=== PATIENT | male | born 1945 | race Caucasian/White ===

== ENCOUNTER → 2016-03-10 | Outpatient (CLI) | payer OTHER, MEDICARE, BC ==
[2016-03-10 07:23] LABS: Blood Urea Nitrogen 16 mg/dL (9-20); Non-African American GFR(MDRD) >60 (>60 ml/min/1.73 sqM)
--- NOTE | 2016-03-10 09:41 | CT ---
EXAMINATION TYPE: CT abdomen pelvis w con DATE OF EXAM: 03/10/2016 8:43 AM COMPARISON: Prior CT second of April 2015 HISTORY: mid abdomen pain CT DLP: 980.6 mGycm Automated exposure control for dose reduction was used. TECHNIQUE: Helical acquisition of images was performed from the lung bases through the pelvis. CONTRAST: Performed with Oral Contrast and with IV Contrast, patient injected with 100 mL of Omnipaque 300. FINDINGS: LUNG BASES: Calcified right hilar nodes are again seen, there is calcification at the level of the ao rtic root and the heart is enlarged, there are coronary artery calcifications. There is a small hiata l hernia. Interstitial changes are present at the lung bases, there is some improved aeration as comp ared to prior exam. LIVER/GB: Patient is post cholecystectomy. Liver shows low attenuation as on prior exam. PANCREAS: No significant abnormality is seen. SPLEEN: No significant abnormality is seen. ADRENALS: No significant abnormality is seen. KIDNEYS: No significant abnormality is seen. RETROPERITONEAL ADENOPATHY: None visualized REPRODUCTIVE ORGANS: Prostate shows some associated calcification URINARY BLADDER: No significant abnormality is seen. PELVIC ADENOPATHY: None visualized. OSSEOUS STRUCTURES: Degenerative disc changes are present within the visualized spine, there are ass ociated facet arthropathy changes at the lower lumbar spine, irregularity of the right ilium shows a stable appearance. BOWEL: Scattered diverticular changes noted, there is no evident bowel obstruction, appendix is not seen. OTHER: No ascites. IMPRESSION: DIVERTICULOSIS. POSTOP CHANGES. SMALL HIATAL HERNIA. CARDIOMEGALY, CORONARY ARTERY DISEASE, NO SIGNIF ICANT INTERVAL CHANGE COMPARED TO PRIOR EXAM.
== END | disposition home or self-care (01) ==
LOC: RADCTMAIN 06:34
PROVIDERS: ATTEND Surgery
DX: K44.9 Diaphragmatic hernia without obstruction or gangrene (principal); K57.90 Diverticulosis of intestine, part unspecified, without perforation or abscess without bleeding; R10.9 Unspecified abdominal pain; Z90.49 Acquired absence of other specified parts of digestive tract
CPT/HCPCS: 82565; 84520; 74177; 36415; Q9967

== ENCOUNTER 2016-04-13 19:55 | Observation (INO) | payer OTHER, MEDICARE, BC ==
[2016-04-13] MEDS ORDERED: ACETAMINOPHEN TAB 325 MG TAB PO STA (21:09)
[2016-04-13 21:37] LABS: Aty Lym Flag Marked; CH 31.4; CHCM 34.7; HCT 39.2 % (39.0-53.0); HDW 2.97; HGB 13.3 gm/dL (13.0-17.5); MCH 30.9 pg (25.0-35.0); Mean Platelet Volume 7.1; RDW 13.5 % (11.5-15.5); WBC (Perox) 32.22
[2016-04-13 21:39] LABS: Appearance,Urine Clear (Clear); Bilirubin,Urine Negative (Negative); Glucose,Urine (UA) Negative (Negative); Ketones,Urine Negative (Negative); Leukocyte Esterase,Urine Negative (Negative); Nitrite,Urine Negative (Negative); Protein,Urine Negative (Negative); UA Billing (MACRO vs. MICRO) CHEM; Urobilinogen,Urine <2.0 mg/dL (<2.0)
[2016-04-13 21:43] LABS: WBC 32.4 k/uL (3.8-10.6)
--- NOTE | 2016-04-13 21:44 | XR ---
EXAMINATION TYPE: XR chest 1V portable DATE OF EXAM: 04/13/2016 9:38 PM COMPARISON: 05/07/2015 HISTORY: Fever TECHNIQUE: Single frontal view of the chest is obtained. FINDINGS: There is no heart failure. Heart is enlarged. There is slight blunting of left costophreni c angle. There is no definite pulmonary infiltrate. There is upper thoracic spine fusion surgery note d. There are no hilar masses. IMPRESSION: Left basilar pleural reaction or fluid. There is significant clearing of most of the inf iltrate in the left lung compared to last exam.
[2016-04-13 21:46] LABS: ALT 36 U/L (21-72); AST 26 U/L (17-59); Alkaline Phosphatase 63 U/L (38-126); Anion Gap 12 mmol/L; Blood Urea Nitrogen 19 mg/dL (9-20); Calcium 9.2 mg/dL (8.4-10.2); Carbon Dioxide 23 mmol/L (22-30); Chloride 100 mmol/L (98-107); Glucose 151 mg/dL (74-99); Non-African American GFR(MDRD) >60 (>60 ml/min/1.73 sqM); Potassium 4.3 mmol/L (3.5-5.1); Sodium 135 mmol/L (137-145); Total Bilirubin 0.7 mg/dL (0.2-1.3); Total Protein 6.3 g/dL (6.3-8.2)
--- NOTE | 2016-04-13 21:46 | ED ---
Fever HPI - General Chief Complaint: Fever Stated Complaint: Weakness/Vomiting Time Seen by Provider: 04/13/16 21:09 Source: patient Mode of arrival: wheelchair Limitations: no limitations - History of Present Illness Initial Comments: This patient is 70-year-old man who presents with approximately one week of not feeling well. The patient has been having fever and chills, feeling some generalized weakness and fatigue. Patient states that he usually feels alright when he wakes up for couple of hours and then by the afternoon feels rundown and he is not able to do much. MD Complaint: fever Onset/Timin -: week(s) Temperature Source: subjective Associated Symptoms: chills - Related Data Home Medications Medication Instructions Recorded Confirmed Acyclovir [Zovirax] 400 mg PO BID 04/13/16 04/13/16 Aspirin [Adult Low Dose Aspirin EC] 81 mg PO DAILY 04/13/16 04/13/16 Cephalexin [Keflex] 500 mg PO BID 04/13/16 04/13/16 Clopidogrel [Plavix] 75 mg PO DAILY 04/13/16 04/13/16 Furosemide [Lasix] 20 mg PO BID 04/13/16 04/13/16 Insulin Glargine [Lantus] 35 unit SQ HS 04/13/16 04/13/16 Ipratropium-Albuterol Nebulize 3 ml INHALATION RT-TID PRN 04/13/16 04/13/16 [Duoneb 0.5 mg-3 mg/3 ml Soln] Lactulose 20 gm PO BID PRN 04/13/16 04/13/16 Metoprolol Tartrate [Lopressor] 25 mg PO BID 04/13/16 04/13/16 Multivitamins, Thera [Multivitamin] 1 tab PO DAILY 04/13/16 04/13/16 Potassium Chloride ER [K-Dur 10] 10 meq PO DAILY 04/13/16 04/13/16 Saw [place] 500 mg PO DAILY 04/13/16 04/13/16 Allergies Allergy/AdvReac Type Severity Reaction Status Date / Time No Known Allergies Allergy Verified 04/13/16 21:46 Review of Systems ROS Statement: Those systems with pertinent positive or pertinent negative responses have been documented in the HPI. ROS Other: All systems not noted in ROS Statement are negative. Constitutional: Reports: fever, chills, weakness Respiratory: Denies: cough, dyspnea Cardiovascular: Denies: chest pain, palpitations, edema, syncope Gastrointestinal: Denies: abdominal pain, nausea, vomiting, diarrhea, constipation Genitourinary: Denies: dysuria, hematuria Musculoskeletal: Denies: back pain Skin: Denies: rash Neurological: Reports: weakness (Generalized). Denies: headache, numbness Past Medical History Past Medical History: Hypertension, Pneumonia Additional Past Medical History / Comment(s): lymphoma 4 times. Has a history of histoplasmosis which required the lung resection at [facility] History of Any Multi-Drug Resistant Organisms: None Reported Past Surgical History: Cholecystectomy, Hernia Repair Additional Past Surgical History / Comment(s): stem cell transplant Past Anesthesia/Blood Transfusion Reactions: No Reported Reaction Past Psychological History: No Psychological Hx Reported Additional Psychological History / Comment(s): . 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 No international travel. No animal exposures Smoking Status: Never smoker Past Alcohol Use History: None Reported Past Drug Use History: None Reported - Past Family History Mother Family Medical History: Thyroid Disorder General Exam Limitations: no limitations General appearance: alert, in no apparent distress Head exam: Present: atraumatic, normocephalic Eye exam: Present: normal appearance. Absent: scleral icterus, conjunctival injection ENT exam: Present: mucous membranes dry Neck exam: Present: normal inspection, full ROM. Absent: meningismus Respiratory exam: Present: rales (Bilateral bases). Absent: respiratory distress, wheezes, rhonchi, stridor Cardiovascular Exam: Present: regular rate, normal rhythm, systolic murmur ( Grade 1/6 early systolic murmur). Absent: diastolic murmur, rubs, gallop GI/Abdominal exam: Present: soft. Absent: distended, tenderness, guarding, rebound, mass Extremities exam: Present: normal inspection, normal capillary refill. Absent: pedal edema, calf tenderness Back exam: Present: normal inspection. Absent: CVA tenderness (R), CVA tenderness (L) Neurological exam: Present: alert Skin exam: Present: warm, dry, intact, normal color. Absent: rash Course Vital Signs 04/13/16 04/13/16 04/13/16 20:23 21:27 22:52 Temperature 101.6 F H 101 F H 100.5 F H Pulse Rate 98 88 85 Respiratory 20 18 18 Rate Blood Pressure 112/57 114/57 98/54 O2 Sat by Pulse 92 L 98 95 Oximetry Medical Decision Making - Medical Decision Making Patient 70-year-old man who presents for fever and generalized weakness and fatigue. He does have significant leukocytosis, but the workup does not reveal definite source. I do believe the patient probably has an early pneumonia that has not become apparent yet on the chest x-ray. The patient's lung exam does have crackles in the lower lung field. Given the significant leukocytosis will admit the patient overnight for the culture results and to started antibiotic treatment. - Lab Data Result diagrams: 04/13/16 21:15 04/13/16 21:15 Lab Results 04/13/16 04/13/16 04/13/16 Range/Units 21:15 21:15 21:15 WBC 32.4 H* (3.8-10.6) k/uL RBC 4.30 (4.30-5.90) m/uL Hgb 13.3 (13.0-17.5) gm/dL Hct 39.2 (39.0-53.0) % MCV 91.0 (80.0-100.0) fL MCH 30.9 (25.0-35.0) pg MCHC 34.0 (31.0-37.0) g/dL RDW 13.5 (11.5-15.5) % Plt Count 443 (150-450) k/uL Neutrophils % (Manual) 94.5 % Lymphocytes % (Manual) 4.0 % Monocytes % (Manual) 1.5 % Neutrophils # (Manual) 30.6 H (1.3-7.7) k/uL Lymphocytes # (Manual) 1.3 (1.0-4.8) k/uL Monocytes # (Manual) 0.5 (0-1.0) k/uL Nucleated RBCs 0 (0-0) /100 WBC Manual Slide Review Performed RBC Morphology Normal Sodium 135 L (137-145) mmol/L Potassium 4.3 (3.5-5.1) mmol/L Chloride 100 (98-107) mmol/L Carbon Dioxide 23 (22-30) mmol/L Anion Gap 12 mmol/L BUN 19 (9-20) mg/dL Creatinine 0.95 (0.66-1.25) mg/dL Est GFR (MDRD) Af Amer >60 (>60 ml/min/1.73 sqM) Est GFR (MDRD) Non-Af >60 (>60 ml/min/1.73 sqM) Glucose 151 H (74-99) mg/dL Plasma Lactic Acid Ko (0.7-2.0) mmol/L Calcium 9.2 (8.4-10.2) mg/dL Total Bilirubin 0.7 (0.2-1.3) mg/dL AST 26 (17-59) U/L ALT 36 (21-72) U/L Alkaline Phosphatase 63 (38-126) U/L Total Protein 6.3 (6.3-8.2) g/dL Albumin 3.8 (3.5-5.0) g/dL Urine Color Urine Appearance (Clear) Urine pH (5.0-8.0) Ur Specific [place] (1.001-1.035) Urine Protein (Negative) Urine Glucose (UA) (Negative) Urine Ketones (Negative) Urine Blood (Negative) Urine Nitrate (Negative) Urine Bilirubin (Negative) Urine Urobilinogen (<2.0) mg/dL Ur Leukocyte Esterase (Negative) Influenza Type A RNA Not Detected (Not Detectd) Influenza Type B (PCR) Not Detected (Not Detectd) 04/13/16 04/13/16 Range/Units 21:15 21:15 WBC (3.8-10.6) k/uL RBC (4.30-5.90) m/uL Hgb (13.0-17.5) gm/dL Hct (39.0-53.0) % MCV (80.0-100.0) fL MCH (25.0-35.0) pg MCHC (31.0-37.0) g/dL RDW (11.5-15.5) % Plt Count (150-450) k/uL Neutrophils % (Manual) % Lymphocytes % (Manual) % Monocytes % (Manual) % Neutrophils # (Manual) (1.3-7.7) k/uL Lymphocytes # (Manual) (1.0-4.8) k/uL Monocytes # (Manual) (0-1.0) k/uL Nucleated RBCs (0-0) /100 WBC Manual Slide Review RBC Morphology Sodium (137-145) mmol/L Potassium (3.5-5.1) mmol/L Chloride (98-107) mmol/L Carbon Dioxide (22-30) mmol/L Anion Gap mmol/L BUN (9-20) mg/dL Creatinine (0.66-1.25) mg/dL Est GFR (MDRD) Af Amer (>60 ml/min/1.73 sqM) Est GFR (MDRD) Non-Af (>60 ml/min/1.73 sqM) Glucose (74-99) mg/dL Plasma Lactic Acid Ko 1.1 (0.7-2.0) mmol/L Calcium (8.4-10.2) mg/dL Total Bilirubin (0.2-1.3) mg/dL AST (17-59) U/L ALT (21-72) U/L Alkaline Phosphatase (38-126) U/L Total Protein (6.3-8.2) g/dL Albumin (3.5-5.0) g/dL Urine Color Yellow Urine Appearance Clear (Clear) Urine pH 6.0 (5.0-8.0) Ur Specific [place] 1.010 (1.001-1.035) Urine Protein Negative (Negative) Urine Glucose (UA) Negative (Negative) Urine Ketones Negative (Negative) Urine Blood Negative (Negative) Urine Nitrate Negative (Negative) Urine Bilirubin Negative (Negative) Urine Urobilinogen <2.0 (<2.0) mg/dL Ur Leukocyte Esterase Negative (Negative) Influenza Type A RNA (Not Detectd) Influenza Type B (PCR) (Not Detectd) - EKG Data -: EKG Interpreted by Vt EKG shows normal: sinus rhythm, axis (Normal), intervals (Normal), QRS complexes (There is an incomplete right bundle branch block as well as a left posterior fascicular block), ST-T waves Rate: normal (Rate 91 bpm) Disposition Clinical Impression: Fever, Pneumonia, Leukocytosis Disposition: ADMITTED IP TO THIS HOSP Condition: Fair
[2016-04-13 21:59] LABS: Add Differential Manual Differential
[2016-04-13 22:01] LABS: Nucleated Red Blood Cells 0 /100 WBC (0-0); Total Cells Counted 200
[2016-04-13 22:02] LABS: Manual Review Performed; RBC Morphology Normal
[2016-04-13] MEDS ORDERED: PNEUMONIA PROTOCOL UTILIZED 1 EACH MISC PO PRN (22:18)
[2016-04-13] MEDS ORDERED: LEVOFLOXACIN 750MG-D5W PMX 750 MG in DEXTROSE/WATER 1 150ML.BAG IVPB STA (22:18)
[2016-04-13] MEDS ORDERED: ALBUTEROL NEBULIZED 2.5 MG/3 ML INHALATION PRN (22:18)
[2016-04-13] MEDS ORDERED: LACTULOSE 20 GM/30 ML CUP PO PRN (22:19)
[2016-04-13] MEDS: SODIUM CHLORIDE 0.9% 1,000 ML IV SCH (22:57)
[2016-04-13] MEDS ORDERED: ACETAMINOPHEN TAB 325 MG TAB PO PRN (22:59)
[2016-04-14 00:16] VITALS: BMI 28.1
[2016-04-14 00:18] VITALS: RESP 16
[2016-04-14] MEDS: PIPERACILLIN-TAZOBACTAM 3.375 GM in DEXTROSE/WATER 1 50ML.BAG IVPB STA ×2 (00:33→02:07)
[2016-04-14 07:36] LABS: Glucose,Whole Blood 128 mg/dL (75-99)
[2016-04-14 08:01] LABS: Hemoglobin A1C 6.4 % (4.2-6.1)
[2016-04-14] MEDS: INSULIN LISPRO (humaLOG) 300 UNIT/3 ML VIAL SQ SCH ×4 (08:53→21:41)
[2016-04-14] MEDS: ASPIRIN 81 MG CHEW PO SCH (08:57)
[2016-04-14] MEDS: CLOPIDOGREL 75 MG TAB PO SCH (08:57)
[2016-04-14] MEDS: METOPROLOL TARTRATE 25 MG TAB PO SCH ×2 (08:58→20:57)
[2016-04-14] MEDS: MULTIVITAMINS, THERA 1 EACH TAB PO SCH (08:58)
[2016-04-14] MEDS: POTASSIUM CHLORIDE ER 10 MEQ TAB.ER.PRT PO SCH (08:58)
[2016-04-14] MEDS: SODIUM CHLORIDE 0.9% 1,000 ML IV SCH (08:59)
[2016-04-14] MEDS ORDERED: FUROSEMIDE 20 MG TAB PO SCH (09:00)
[2016-04-14] MEDS ORDERED: PIPERACILLIN-TAZOBACTAM 3.375 GM in DEXTROSE/WATER 1 50ML.BAG IVPB SCH (09:00)
[2016-04-14] MEDS ORDERED: cefTRIAXone 2,000 MG in SODIUM CHLORIDE 0.9% 100 ML IVPB SCH (11:30)
[2016-04-14 11:40] LABS: Glucose,Whole Blood 113 mg/dL (75-99)
[2016-04-14 12:24] LABS: INR 1.2 (<1.1)
[2016-04-14 12:25] LABS: Prothrombin Time 12.3 sec (9.0-12.0)
--- NOTE | 2016-04-14 12:31 | HP ---
DATE OF ADMISSION: Patient is 70-year-old gentleman who came in with complaints of cough with sputum production and fever, chills and generalized weakness, found to have left lower lobe infiltrate and patient is admitted for pneumonia and patient has history of lymphoma, which is in remission. Patient is feeling much better today compared to yesterday. Patient denied any abdominal pain at this time. Patient denied any dysuria. Patient is on broad-spectrum antibiotics including Zosyn and Augmentin. Patient's last admission is about a year ago. Because of that, I do not believe patient will need to be treated as health-care associated pneumonia. Patient will be started on treatment in the form of community-acquired pneumonia with ceftriaxone and azithromycin. Patient had staphylococcal pneumonia in the past and patient had influenza at the time. Postinfluenzal staphylococcal pneumonia is not uncommon. At this time, patient does not have any staphylococcal and patient although is on Keflex at home and acyclovir at home. REVIEW OF SYSTEMS: CONSTITUTIONAL: No fever, no malaise, no fatigue. HEENT: No recent visual problems or hearing problems. Denied any sore throat. CARDIOVASCULAR: No chest pain, orthopnea, PND, no palpitations, no syncope. PULMONARY: As described in HPI. GASTROINTESTINAL: No diarrhea, no nausea, no vomiting, no abdominal pain. Normoactive bowel sounds. NEUROLOGICAL: No headaches, no weakness, no numbness. HEMATOLOGICAL: Denies any bleeding or petechiae. GENITOURINARY: Denies any burning micturition, frequency, or urgency. MUSCULOSKELETAL/RHEUMATOLOGICAL: Denies any joint pain, swelling, or any muscle pain. ENDOCRINE: Denies any polyuria or polydipsia. The rest of the 14 point review of systems is negative. Home medications include acyclovir, aspirin, cephalexin, Plavix, Lasix, glargine, ipratropium albuterol, lactulose, metoprolol. multivitamin, potassium chloride, saw palmetto. ALLERGIES: No known drug allergies. PAST MEDICAL HISTORY: Hypertension, pneumonia and lymphoma in the past. Patient is in remission at this point of time, and cholecystectomy, hernia repair, stem-cell transplant 4 times. SOCIAL HISTORY: Denied any smoking, alcohol abuse or any drug abuse. FAMILY HISTORY: Mother had thyroid cancer. PHYSICAL EXAMINATION: VITAL SIGNS: Temperature 97.8, T-max is 101.6, pulse of 76, respiratory rate of 16, blood pressure is 103/57, saturating at 94% on room air. RESPIRATORY: Bibasilar crackles are appreciated. Patient does have bronchophony egophony in the left lower lung mathur and fairly good air entry into bilateral lung mathur. No wheezing was appreciated. CARDIOVASCULAR: S1 and S2 present. There may be a minimally elevated JVD but patient is not at 60 degrees so I cannot clearly say he has JVD. GENERAL: The patient is alert and oriented x3, not in any acute distress. Well developed, well nourished. HEENT: Pupils are round and equally reacting to light. EOMI. No scleral icterus. No conjunctival pallor. Normocephalic, atraumatic. No pharyngeal erythema. No thyromegaly. ABDOMEN: Soft, nontender, nondistended, normoactive bowel sounds. No palpable organomegaly. MUSCULOSKELETAL: No joint swelling or deformity. EXTREMITIES: No cyanosis, clubbing, or pedal edema. NEUROLOGICAL: Gross neurological examination did not reveal any focal deficits. SKIN: No rashes. LABORATORY DATA: CBC, CMP are abnormal for elevated WBC count of 32,400. I will obtain a BNP level as I do have suspicion depending on the chest x-ray that he may have pulmonary edema, because of pulmonary vascular markings, although his ejection fraction is essentially within normal limits. Patient is on Lasix, which I am holding for now because of pneumonia. Patient does not have any pedal edema at this time and patient does have history of atrial fibrillation. I will obtain an INR and that will help me decide on dosing of Coumadin. Chest x-ray as mentioned above, sputum cultures will be obtained. ASSESSMENT AND PLAN: 1. Left lower lobe pneumonia. Patient will be started on Rocephin and azithromycin as mentioned above. 2. Atrial fibrillation, presently rate controlled, resume his own medication and patient is on Coumadin. I will obtain an INR before I start him on Coumadin. 3. Hypertension. 4. Hyponatremia. 5. Type 2 diabetes mellitus. 6. History of B-cell lymphoma which is in remission. 7. Patient is not on Coumadin, check with the patient again whether he was taking Coumadin or not.
[2016-04-14 16:31] VITALS: BP 110/59; TEMP 98.2
[2016-04-14 17:11] LABS: Glucose,Whole Blood 127 mg/dL (75-99)
[2016-04-14] MEDS: FUROSEMIDE 20 MG TAB PO SCH (17:23)
[2016-04-14] MEDS: ACYCLOVIR 200 MG CAP PO SCH (20:45)
[2016-04-14] MEDS: cefTRIAXone 2,000 MG in SODIUM CHLORIDE 0.9% 100 ML IVPB SCH (20:49)
[2016-04-14] MEDS ORDERED: INSULIN GLARGINE 100 UNIT/ML 10 ML VIAL SQ SCH (21:00)
[2016-04-14] MEDS ORDERED: LEVOFLOXACIN 750MG-D5W PMX 750 MG in DEXTROSE/WATER 1 150ML.BAG IVPB SCH (21:00)
[2016-04-14 21:36] LABS: Glucose,Whole Blood 114 mg/dL (75-99)
[2016-04-15 08:06] LABS: Glucose,Whole Blood 165 mg/dL (75-99)
[2016-04-15 08:12] LABS: Aty Lym Flag Slight; CH 30.4; CHCM 31.6; HCT 41.1 % (39.0-53.0); HGB 12.7 gm/dL (13.0-17.5); Hypochromasia Slight; MCH 29.8 pg (25.0-35.0); MCHC 30.8 g/dL (31.0-37.0); MPO Flag Slight; Mean Platelet Volume 6.5; RBC 4.26 m/uL (4.30-5.90); RDW 13.5 % (11.5-15.5); WBC 12.6 k/uL (3.8-10.6); WBC (Perox) 13.06
[2016-04-15 08:17] VITALS: PULSE 73
[2016-04-15 08:34] LABS: Anion Gap 12 mmol/L; Blood Urea Nitrogen 18 mg/dL (9-20); Calcium 9.2 mg/dL (8.4-10.2); Carbon Dioxide 20 mmol/L (22-30); Chloride 105 mmol/L (98-107); Glucose 153 mg/dL (74-99); Non-African American GFR(MDRD) >60 (>60 ml/min/1.73 sqM); Potassium 4.3 mmol/L (3.5-5.1); Sodium 137 mmol/L (137-145)
[2016-04-15 08:50] LABS: MCV 96.6 fL (80.0-100.0)
[2016-04-15] MEDS ORDERED: AZITHROMYCIN 500 MG TAB PO SCH (09:00)
[2016-04-15 09:23] LABS: Add Differential Manual Differential
[2016-04-15 09:25] LABS: Nucleated Red Blood Cells 0 /100 WBC (0-0); Total Cells Counted 100
[2016-04-15] MEDS: CLOPIDOGREL 75 MG TAB PO SCH (09:28)
[2016-04-15] MEDS: ACYCLOVIR 200 MG CAP PO SCH (09:28)
[2016-04-15] MEDS: ASPIRIN 81 MG CHEW PO SCH (09:29)
[2016-04-15] MEDS: FUROSEMIDE 20 MG TAB PO SCH (09:29)
[2016-04-15] MEDS: INSULIN LISPRO (humaLOG) 300 UNIT/3 ML VIAL SQ SCH ×2 (09:29→12:41)
[2016-04-15] MEDS: METOPROLOL TARTRATE 25 MG TAB PO SCH (09:29)
[2016-04-15] MEDS: POTASSIUM CHLORIDE ER 10 MEQ TAB.ER.PRT PO SCH (09:30)
[2016-04-15] MEDS: MULTIVITAMINS, THERA 1 EACH TAB PO SCH (09:30)
[2016-04-15] MEDS ORDERED: IPRATROPIUM-ALBUTEROL 3 ML NEB INHALATION PRN (11:07)
[2016-04-15] MEDS ORDERED: FUROSEMIDE 10 MG/ML 2 ML VIAL IV ONE (11:09)
--- NOTE | 2016-04-15 11:38 | P.CNPUL ---
History of Present Illness Consult date: 04/15/16 Requesting physician: Monica Mcintyre Reason for consult: COPD Chief complaint: Shortness of breath History of present illness: This patient is being evaluated and examined today for pulmonary services on the fifth floor. Patient is a 76-year-old gentleman who came in to the hospital with complaints of shortness of breath, productive cough, fever, chills , and generalized weakness. He was found that he had a left lower lobe infiltrate and was admitted for pneumonia and significant leukocytosis. Patient recently had a staphylococcal pneumonia in the past and also influenza at that time. Sputum culture and blood culture were obtained but are currently pending. The preliminary report of the sputum does show gram-positive cocci however. The patient did have a stress test outpatient on 03/24/2016 which showed an ejection fraction of 36%. The patient's pro BNP result was 1180 this admission.. Patient states he has a known history of heart failure. On examination the patient is sitting up in bed on room air. The patient does complain of a productive cough with green sputum. The patient and has been afebrile today. He denies any nausea, vomiting, chest pain, or diarrhea at this time. Review of Systems 14 point review of systems was completed and is negative other than what is noted in the HPI Past Medical History Past Medical History: Hypertension, Pneumonia Additional Past Medical History / Comment(s): lymphoma 4 times. 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 No international travel. No animal exposures Smoking Status: Never smoker Past Alcohol Use History: None Reported Past Drug Use History: None Reported - Past Family History Mother Family Medical History: Thyroid Disorder Medications and Allergies Home Medications Medication Instructions Recorded Confirmed Type Acyclovir [Zovirax] 400 mg PO BID 04/13/16 04/13/16 History Aspirin [Adult Low Dose Aspirin EC] 81 mg PO DAILY 04/13/16 04/13/16 History Clopidogrel [Plavix] 75 mg PO DAILY 04/13/16 04/13/16 History Furosemide [Lasix] 20 mg PO BID 04/13/16 04/13/16 History Insulin Glargine [Lantus] 35 unit SQ HS 04/13/16 04/13/16 History Lactulose 20 gm PO BID PRN 04/13/16 04/13/16 History Metoprolol Tartrate [Lopressor] 25 mg PO BID 04/13/16 04/13/16 History Multivitamins, Thera [Multivitamin] 1 tab PO DAILY 04/13/16 04/13/16 History Potassium Chloride ER [K-Dur 10] 10 meq PO DAILY 04/13/16 04/13/16 History Saw [place] 500 mg PO DAILY 04/13/16 04/13/16 History Allergies Allergy/AdvReac Type Severity Reaction Status Date / Time No Known Allergies Allergy Verified 04/13/16 21:46 Physical Exam Vitals: Vital Signs Temp Pulse Pulse Resp BP Pulse Ox 04/15/16 07:00 98.2 F 73 16 110/59 95 04/14/16 20:01 96 04/14/16 15:00 98.2 F 74 16 110/59 97 Intake and Output 04/14/16 04/15/16 04/15/16 22:59 06:59 14:59 Intake Total 1180 590 Balance 1180 590 Intake: Oral 1180 590 Other: Voiding Method Toilet Toilet Toilet # Voids 1 1 GENERAL EXAM: Alert, active, comfortable in no apparent distress. HEAD: Normocephalic. EYES: Normal reaction of pupils, equal size. NOSE: Clear with pink turbinates. THROAT: No erythema or exudates. NECK: No masses, no JVD. CHEST: No chest wall deformity. LUNGS: Equal air entry. Patient has significant bibasilar crackles, and some faint expiratory wheezing. CVS: S1 and S2 normal with no audible mumurs, regular rhythm. ABDOMEN: No hepatosplenomegaly, normal bowel sounds, no guarding or rigidity. EXTREMITIES: No edema noted, pedal pulses palpable. SKIN: No rashes CENTRAL NERVOUS SYSTEM: No focal deficits, tone is normal in all 4 extremities. Results - Laboratory Findings CBC and BMP: 04/15/16 07:38 04/15/16 07:38 PT/INR, D-dimer PT 12.3 sec (9.0-12.0) H 04/14/16 11:33 INR 1.2 (<1.1) 04/14/16 11:33 Abnormal lab findings: Abnormal Labs 04/14/16 04/14/16 04/14/16 07:31 11:33 11:38 WBC RBC Hgb MCHC Plt Count Neutrophils # (Manual) PT 12.3 H Carbon Dioxide Glucose POC Glucose (mg/dL) 128 H 113 H 04/14/16 04/14/16 04/15/16 17:09 21:34 07:38 WBC 12.6 H RBC 4.26 L Hgb 12.7 L MCHC 30.8 L Plt Count 452 H Neutrophils # (Manual) 9.7 H PT Carbon Dioxide Glucose POC Glucose (mg/dL) 127 H 114 H 04/15/16 04/15/16 07:38 08:05 WBC RBC Hgb MCHC Plt Count Neutrophils # (Manual) PT Carbon Dioxide 20 L Glucose 153 H POC Glucose (mg/dL) 165 H - Diagnostic Findings Chest x-ray: report reviewed, image reviewed Assessment and Plan Plan: Assessment Community-acquired Left lower lobe pneumonia Acute on chronic diastolic heart failure Atrial fibrillation Hypertension Hyponatremia Type 2 diabetes mellitus History of B-cell lymphoma Plan Medications have been reviewed and will be continued. We will switch his updrafts to budesonide and DuoNeb scheduled. Patient will receive a 1 time dose of IV Lasix now. Blood cultures and sputum cultures are pending. We will continue to monitor labs and adjust treatment as necessary.
[2016-04-15] MEDS: IPRATROPIUM-ALBUTEROL 3 ML NEB INHALATION SCH ×2 (11:40→14:51)
[2016-04-15 12:23] LABS: Glucose,Whole Blood 103 mg/dL (75-99)
[2016-04-15] MEDS: cefTRIAXone 2,000 MG in SODIUM CHLORIDE 0.9% 100 ML IVPB SCH (12:44)
[2016-04-15] MEDS ORDERED: BUDESONIDE 1 MG/2 ML NEBU INHALATION SCH (20:00)
--- NOTE | 2016-04-16 09:13 | DS ---
DATE OF ADMISSION: 04/13/2016 DATE OF DISCHARGE: 04/15/2016 FINAL DIAGNOSES: 1. Left lower lobe pneumonia, possibly community acquired, improved. 2. Chronic obstructive pulmonary disease. 3. Possible congestive heart failure with chronic diastolic dysfunction, ejection fraction about 50% to 55%. 4. Multiple abnormalities and moderate mitral regurgitation and tricuspid regurgitation with previous 2-D echo. 5. History of atrial fibrillation, chronic persistent, rate controlled. 6. Hypertension. 7. Hyponatremia. 8. Diabetes mellitus type 2. 9. History of B-cell lymphoma, which is in remission. 10. FULL CODE. DISCHARGE DISPOSITION: The patient will be discharged in a stable condition with guarded prognosis. Patient is extremely keen on going home. HISTORY OF PRESENT ILLNESS: This 70-year-old gentleman with a past medical history of multiple medical problems as mentioned earlier being followed by Dr. Galindo in the outpatient setting admitted with features of shortness of breath and as well as some left lower lobe pneumonia. The patient was given antibiotics. Patient improved significantly. Patient was seen by Dr. Urias. The patient was recommended to continue to follow but; however, the patient is extremely keen on going home at this time. On exam, vitals are stable. CARDIOVASCULAR SYSTEM: S1, S2 muffled. RESPIRATORY: A few scattered rhonchi. ABDOMEN: Soft. NERVOUS SYSTEM: No focal deficits. Labs are WBC 12.6, hemoglobin 12.7. The patient will be discharged in stable condition with guarded prognosis. Diet is cardiac. Activity limited until followup. Follow up with Dr. Galindo in 2 to 3 days. Follow up with Dr. Urias and Dr. Jones as advised. The medications are as below: 1. Zovirax 400 mg p.o. b.i.d. 2. Aspirin 81 mg daily. 3. Zithromax 500 mg p.o. daily for 5 days. 4. Pulmicort 1 mg b.i.d. updrafts. 5. Ceftin 500 mg b.i.d. for 5 days. 6. Plavix 75 mg p.o. daily. 7. Lasix 20 mg p.o. b.i.d. 8. Lantus 35 units subcu q.h.s. 9. Albuterol Atrovent updrafts q.i.d. and p.r.n. 10. Lactulose 20 mg p.o. b.i.d. p.r.n. 11. Lopressor 25 mg p.o. b.i.d. 12. Multivitamins 1 daily. 13. K-Dur 10 mEq p.o. daily. 14. Saw palmetto 500 mg p.o. daily. Once again, the patient will be discharged in stable condition with guarded prognosis. MTDD
== END 2016-04-15 14:40 | disposition home or self-care (01) ==
LOC: EC 19:55 → 5MS5E 22:18
PROVIDERS: ADMIT Hospitalist; ATTEND Hospitalist
DX: J44.0 Chronic obstructive pulmonary disease with (acute) lower respiratory infection (principal); J18.9 Pneumonia, unspecified organism; I34.0 Nonrheumatic mitral (valve) insufficiency; I36.1 Nonrheumatic tricuspid (valve) insufficiency; I10 Essential (primary) hypertension; I48.2 Chronic atrial fibrillation; I48.1 Persistent atrial fibrillation; E11.9 Type 2 diabetes mellitus without complications; E87.1 Hypo-osmolality and hyponatremia; Z85.72 Personal history of non-Hodgkin lymphomas; Z79.82 Long term (current) use of aspirin; Z79.02 Long term (current) use of antithrombotics/antiplatelets; Z79.899 Other long term (current) drug therapy; Z79.4 Long term (current) use of insulin; Z79.2 Long term (current) use of antibiotics; Z94.84 Stem cells transplant status; Z87.01 Personal history of pneumonia (recurrent)
CPT/HCPCS: 36415; 94760; 93005; 83880; 80053; 80048; 83036; 83605; 85025 ×2; 85610; 81003; 87040; 87070; 87086; 87205; 87077; 87186; 87502; 71010; 99284; G0378 ×3; J1940; J0696 ×2; J1956; J2543; 96365; 96366; 96367; 96375

== ENCOUNTER 2016-05-18 21:57 | Inpatient (IN) | payer OTHER, MEDICARE, BC ==
--- NOTE | 2016-05-18 22:12 | ED ---
General Adult HPI - General Stated complaint: CAS,right flank pain Time Seen by Provider: 05/18/16 22:00 Source: RN notes reviewed, old records reviewed - History of Present Illness Initial comments: This is a 70-year-old male here for evaluation today. This patient presents for evaluation of significant shortness of breath patient was resting chest pain. Patient does have positive or recent hospitalizations, horizontalization' s surrounding respiratory failure, patient is mainly complaining of chest pain today. No modifying factors for pain, patient stated a difficult time taking a deep breath no admits to decreased appetite and decreased activity level. - Related Data Home Medications Medication Instructions Recorded Confirmed Acyclovir [Zovirax] 400 mg PO BID 04/13/16 05/18/16 Clopidogrel [Plavix] 75 mg PO DAILY 04/13/16 05/18/16 Furosemide [Lasix] 20 mg PO BID 04/13/16 05/18/16 Insulin Glargine [Lantus] 35 unit SQ HS 04/13/16 05/18/16 Metoprolol Tartrate [Lopressor] 25 mg PO BID 04/13/16 05/18/16 Multivitamins, Thera [Multivitamin 1 tab PO DAILY 04/13/16 05/18/16 (formulary)] Aspirin EC [Ecotrin Low Dose] 81 mg PO DAILY 05/18/16 05/18/16 HYDROcodone/APAP 5-325MG [[place] 1 tab PO DAILY PRN 05/18/16 05/18/16 5-325] Ipratropium-Albuterol Nebulize 3 ml INHALATION RT-QID PRN 05/18/16 05/18/16 [Duoneb 0.5 mg-3 mg/3 ml Soln] Lactulose 20 gm PO BID PRN 05/18/16 05/18/16 Potassium Chloride ER [K-Dur 10] 10 meq PO DAILY 05/18/16 05/18/16 Saw [place] 1,000 mg PO BID 05/18/16 05/18/16 Allergies Allergy/AdvReac Type Severity Reaction Status Date / Time No Known Allergies Allergy Verified 05/18/16 22:44 Review of Systems ROS Statement: Those systems with pertinent positive or pertinent negative responses have been documented in the HPI. ROS Other: All systems not noted in ROS Statement are negative. Past Medical History Past Medical History: Hypertension, Pneumonia Additional Past Medical History / Comment(s): lymphoma 4 times. Has a history of histoplasmosis which required the lung resection at [facility] History of Any Multi-Drug Resistant Organisms: MRSA Date of last positivie culture/infection: 04/14/16 MDRO Source:: Sputum Past Surgical History: Cholecystectomy, Hernia Repair Additional Past Surgical History / Comment(s): stem cell transplant Past Anesthesia/Blood Transfusion Reactions: No Reported Reaction Past Psychological History: No Psychological Hx Reported Additional Psychological History / Comment(s): . 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 No experience. No international travel. No animal exposures Smoking Status: Never smoker Past Alcohol Use History: None Reported Past Drug Use History: None Reported - Past Family History Mother Family Medical History: Thyroid Disorder General Exam General appearance: alert, anxious, in distress Head exam: Present: atraumatic, normocephalic, normal inspection Eye exam: Present: normal appearance, PERRL, EOMI. Absent: scleral icterus, conjunctival injection, periorbital swelling ENT exam: Present: mucous membranes dry Neck exam: Present: normal inspection. Absent: tenderness, meningismus, lymphadenopathy Respiratory exam: Present: respiratory distress, accessory muscle use, decreased breath sounds. Absent: wheezes, rales, rhonchi, stridor Cardiovascular Exam: Present: tachycardia, irregular rhythm, normal heart sounds. Absent: systolic murmur, diastolic murmur, rubs, gallop, clicks GI/Abdominal exam: Present: soft, normal bowel sounds. Absent: distended, tenderness, guarding, rebound, rigid Extremities exam: Present: normal inspection, full ROM, normal capillary refill. Absent: tenderness, pedal edema, joint swelling, calf tenderness Back exam: Present: normal inspection Neurological exam: Present: alert, oriented X3, CN II-XII intact Psychiatric exam: Present: normal affect, normal mood Skin exam: Present: warm, dry, intact, normal color. Absent: rash Course Vital Signs 05/18/16 05/18/16 22:08 23:09 Temperature 100.9 F H Pulse Rate 145 H 120 H Respiratory 22 20 Rate Blood Pressure 106/69 149/92 O2 Sat by Pulse 84 L 92 L Oximetry - Reevaluation(s) Reevaluation #1: 05/19/16 00:23 Patient still remains in pain with chest pain and shortness of breath EKG Findings - EKG Comments: EKG Findings:: EKG shows sinus tachycardia rate 127, NJ 160, QRS 100, QTC 479 Medical Decision Making - Medical Decision Making 70 male to ER for evaluation of chest pain. Patient has right-sided chest pain , multiple focal pneumonia fever sepsis A. fib with RVR which is now better with rate control, patient's breathing is improved with breathing treatments, pain is now controlled. Patient be admitted for continued pulmonary and cardiopulmonary resuscitation and monitoring - Lab Data Result diagrams: 05/18/16 22:40 05/18/16 22:40 Lab Results 05/18/16 05/18/16 05/18/16 Range/Units 22:40 22:40 22:40 WBC 23.9 H (3.8-10.6) k/uL RBC 4.19 L (4.30-5.90) m/uL Hgb 13.0 (13.0-17.5) gm/dL Hct 39.4 (39.0-53.0) % MCV 94.2 (80.0-100.0) fL MCH 31.0 (25.0-35.0) pg MCHC 32.9 (31.0-37.0) g/dL RDW 15.0 (11.5-15.5) % Plt Count 360 (150-450) k/uL Neutrophils % (Manual) 86.0 % Band Neutrophils % 6.0 % Lymphocytes % (Manual) 4.0 % Monocytes % (Manual) 4.0 % Neutrophils # (Manual) 22.0 H (1.3-7.7) k/uL Lymphocytes # (Manual) 1.0 (1.0-4.8) k/uL Monocytes # (Manual) 1.0 (0-1.0) k/uL Nucleated RBCs 0 (0-0) /100 WBC Manual Slide Review Performed Ovalocytes Present PT (9.0-12.0) sec INR (<1.1) APTT (22.0-30.0) sec D-Dimer (<0.60) mg/L FEU Sodium 133 L (137-145) mmol/L Potassium 4.0 (3.5-5.1) mmol/L Chloride 97 L (98-107) mmol/L Carbon Dioxide 22 (22-30) mmol/L Anion Gap 14 mmol/L BUN 39 H (9-20) mg/dL Creatinine 1.18 (0.66-1.25) mg/dL Est GFR (MDRD) Af Amer >60 (>60 ml/min/1.73 sqM) Est GFR (MDRD) Non-Af >60 (>60 ml/min/1.73 sqM) Glucose 214 H (74-99) mg/dL Plasma Lactic Acid Ko (0.7-2.0) mmol/L Calcium 8.4 (8.4-10.2) mg/dL Phosphorus 3.2 (2.5-4.5) mg/dL Magnesium 2.0 (1.6-2.3) mg/dL Total Bilirubin 1.1 (0.2-1.3) mg/dL AST 26 (17-59) U/L ALT 32 (21-72) U/L Alkaline Phosphatase 73 (38-126) U/L Total Creatine Kinase 39 L (55-170) U/L CK-MB (CK-2) 0.3 (0.0-2.4) ng/mL CK-MB (CK-2) Rel Index 0.8 Troponin I 0.175 H* (0.000-0.034) ng/mL NT-Pro-B Natriuret Pep pg/mL Total Protein 5.6 L (6.3-8.2) g/dL Albumin 3.1 L (3.5-5.0) g/dL 05/18/16 05/18/16 05/18/16 Range/Units 22:40 22:40 22:40 WBC (3.8-10.6) k/uL RBC (4.30-5.90) m/uL Hgb (13.0-17.5) gm/dL Hct (39.0-53.0) % MCV (80.0-100.0) fL MCH (25.0-35.0) pg MCHC (31.0-37.0) g/dL RDW (11.5-15.5) % Plt Count (150-450) k/uL Neutrophils % (Manual) % Band Neutrophils % % Lymphocytes % (Manual) % Monocytes % (Manual) % Neutrophils # (Manual) (1.3-7.7) k/uL Lymphocytes # (Manual) (1.0-4.8) k/uL Monocytes # (Manual) (0-1.0) k/uL Nucleated RBCs (0-0) /100 WBC Manual Slide Review Ovalocytes PT 11.8 (9.0-12.0) sec INR 1.2 (<1.1) APTT 29.9 (22.0-30.0) sec D-Dimer 4.05 H (<0.60) mg/L FEU Sodium (137-145) mmol/L Potassium (3.5-5.1) mmol/L Chloride (98-107) mmol/L Carbon Dioxide (22-30) mmol/L Anion Gap mmol/L BUN (9-20) mg/dL Creatinine (0.66-1.25) mg/dL Est GFR (MDRD) Af Amer (>60 ml/min/1.73 sqM) Est GFR (MDRD) Non-Af (>60 ml/min/1.73 sqM) Glucose (74-99) mg/dL Plasma Lactic Acid Ko 1.7 (0.7-2.0) mmol/L Calcium (8.4-10.2) mg/dL Phosphorus (2.5-4.5) mg/dL Magnesium (1.6-2.3) mg/dL Total Bilirubin (0.2-1.3) mg/dL AST (17-59) U/L ALT (21-72) U/L Alkaline Phosphatase (38-126) U/L Total Creatine Kinase (55-170) U/L CK-MB (CK-2) (0.0-2.4) ng/mL CK-MB (CK-2) Rel Index Troponin I (0.000-0.034) ng/mL NT-Pro-B Natriuret Pep 4700 pg/mL Total Protein (6.3-8.2) g/dL Albumin (3.5-5.0) g/dL Critical Care Time Critical Care Time: Yes Total Critical Care Time: 31 Disposition Clinical Impression: Nosocomial pneumonia, Sepsis, NSTEMI (non-ST elevated myocardial infarction), Paroxysmal a-fib, Fever, Pneumonia, Atrial fibrillation Disposition: ADMITTED IP TO THIS [facility] Condition: Serious
[2016-05-18] MEDS ORDERED: MORPHINE SULFATE 4 MG/ML SYRINGE IVP STA (22:32)
[2016-05-18] MEDS ORDERED: RX INFO: IV CONTRAST WAS GIVEN 1 EACH MISC MISCELLANE PRN (22:32)
[2016-05-18 22:52] LABS: Aty Lym Flag Slight; CH 31.2; CHCM 33.3; HCT 39.4 % (39.0-53.0); HDW 2.83; MCHC 32.9 g/dL (31.0-37.0); MCV 94.2 fL (80.0-100.0); Mean Platelet Volume 6.8; RBC 4.19 m/uL (4.30-5.90); WBC 23.9 k/uL (3.8-10.6); WBC (Perox) 23.73
[2016-05-18 23:01] LABS: ALT 32 U/L (21-72); AST 26 U/L (17-59); Alkaline Phosphatase 73 U/L (38-126); Anion Gap 14 mmol/L; Blood Urea Nitrogen 39 mg/dL (9-20); Calcium 8.4 mg/dL (8.4-10.2); Carbon Dioxide 22 mmol/L (22-30); Chloride 97 mmol/L (98-107); Glucose 214 mg/dL (74-99); Non-African American GFR(MDRD) >60 (>60 ml/min/1.73 sqM); Phosphorous 3.2 mg/dL (2.5-4.5); Sodium 133 mmol/L (137-145); Total Bilirubin 1.1 mg/dL (0.2-1.3); Total Protein 5.6 g/dL (6.3-8.2)
[2016-05-18 23:12] LABS: INR 1.2 (<1.1); Partial Thromboplastin Time 29.9 sec (22.0-30.0); Prothrombin Time 11.8 sec (9.0-12.0)
[2016-05-18 23:20] LABS: Add Differential Manual Differential
[2016-05-18 23:22] LABS: Nucleated Red Blood Cells 0 /100 WBC (0-0); Total Cells Counted 100
[2016-05-18 23:24] LABS: Manual Review Performed; Ovalocytes Present
[2016-05-18 23:25] LABS: Creatine Kinase MB 0.3 ng/mL (0.0-2.4)
[2016-05-18 23:26] LABS: Troponin I 0.175 ng/mL (0.000-0.034)
--- NOTE | 2016-05-19 00:01 | CT ---
EXAM: CT Angiography Chest With Intravenous Contrast. CLINICAL HISTORY: Reason: Pt c/o mid abd hernia. H/O CA of spine and lymph nodes. Surg hx- Back, GB, Section of Rt lung removed, Stem Cell transplant, Cardiac Stent, umbilical hernia repair r/o PE, SOB, posterior rib pain, right flank pain, TECHNIQUE: Axial computed tomographic angiography images of the chest with intravenous contrast using pulmonary embolism protocol. CTDI is 89.00 mGy and DLP is 1424.70 mGy-cm This CT exam was performed using one or more of the following dose reduction techniques: automated exposure control, adjustment of the mA and/or kV according to patient size, and/or use of iterative reconstruction technique. MIP reconstructed images were created and reviewed. COMPARISON: CT chest on 04/21/2015 FINDINGS: Lung parenchyma: Patchy densities in bilateral lower lobes and right middle lobe. Multifocal areas of scarring and/or atelectasis, predominantly around the periphery of the lungs. Postsurgical changes at the left lung apex. Pleural space: Trace left pleural effusion. Small right pleural effusion with fluid noted along the right lung fissures. Mediastinum/kaley: Calcified mediastinal and hilar lymph nodes, likely related to old granulomatous disease. Soft tissue fullness in the subcarinal region may represent prominent lymph nodes, nonspecific Heart: Stable mild cardiomegaly. No significant pericardial effusion. Coronary artery calcifications. Vasculature: Normal. No pulmonary embolus. Aorta: Atherosclerotic calcifications. No aneurysm or dissection. Airways: Patent. Bones: Degenerative changes of the spine. Stable compression deformity of the T4 vertebral body. No bony lesion or acute fracture. Posterior spinal fusion rods again noted in the lower cervical and upper thoracic spine. Muscles: No mass. Subcutaneous tissues: Normal. Upper abdomen: Status post cholecystectomy. Small splenule. Other: Small calcification noted in the left thyroid lobe. IMPRESSION: 1. No pulmonary embolus identified. 2. Multifocal pneumonia. Trace left pleural effusion and small right pleural effusion. 3. Probable mildly prominent subcarinal lymph nodes, nonspecific.
--- NOTE | 2016-05-19 00:12 | CT ---
EXAM: CT Abdomen and Pelvis With Intravenous Contrast. CLINICAL HISTORY: Reason: Pt c/o mid abd hernia. H/O CA of spine and lymph nodes. Surg hx- Back, GB, Section of Rt lung removed, Stem Cell transplant, Cardiac Stent, umbilical hernia repair r/o PE, SOB, posterior rib pain, right flank pain TECHNIQUE: Axial computed tomography images of the abdomen and pelvis with intravenous contrast. CTDI is 89.00 mGy and DLP is 1424.70 mGy-cm This CT exam was performed using one or more of the following dose reduction techniques: automated exposure control, adjustment of the mA and/or kV according to patient size, and/or use of iterative reconstruction technique. COMPARISON: CT abdomen/pelvis on 03/10/2016 FINDINGS: Liver: Normal. No focal lesion. Spleen: Stable small splenule. No focal lesion. Gallbladder: Status post cholecystectomy. Pancreas: Similar pancreatic atrophy. No mass. Adrenal glands: Normal. No mass. Kidneys: Increased perinephric stranding bilaterally, right greater than left. Stable tiny hypodense lesion in the left kidney, too small to characterize. No hydronephrosis or stone identified. Bowel: Diverticulosis without evidence of diverticulitis. Appendix is nonvisualized. No evidence of bowel obstruction. Wall thickening of the base of the cecum with stranding in the surrounding fat. Urinary bladder: Normal. No wall thickening or mass. Reproductive organs: Normal. Muscles: No mass. Subcutaneous tissues: ampoule examiner seen overlying the right inguinal region. Peritoneal space: Normal. No free fluid. Lymph nodes: Normal. No lymphadenopathy. Vessels: Atherosclerotic changes of the vasculature. No aneurysm or dissection. Bones: Probable tiny bone islands in the right femoral head and right acetabulum. Degenerative changes of the spine with endplate irregularities in the inferior endplate of L3, superior and inferior endplates of L4, and superior endplate of L5. No acute fracture or bony lesion. Lung bases: Please see accompanying CT chest for further details. IMPRESSION: 1. Wall thickening of the base of the cecum with mild surrounding fat stranding may represent colitis, possibly infectious/inflammatory. No bowel obstruction. 2. Diverticulosis without evidence of diverticulitis. 3. Increased perinephric stranding bilaterally, nonspecific. No hydronephrosis or stone. 4. Please see accompanying CT chest for further details.
[2016-05-19] MEDS ORDERED: IPRATROPIUM 0.5 MG/2.5 ML NEBU INHALATION STA (00:13)
[2016-05-19] MEDS ORDERED: LEVALBUTEROL NEB 1.25 MG/3 ML AMP INHALATION STA (00:13)
[2016-05-19] MEDS ORDERED: DILTIAZEM 5 MG/ML 5 ML VIAL IVP STA (00:13)
[2016-05-19] MEDS ORDERED: KETOROLAC 30 MG/ML 1 ML VIAL IVP STA (00:13)
[2016-05-19] MEDS ORDERED: ACETAMINOPHEN TAB 500 MG TAB PO STA (00:13)
[2016-05-19] MEDS ORDERED: LEVOFLOXACIN 750MG-D5W PMX 750 MG in DEXTROSE/WATER 1 150ML.BAG IVPB STA (00:19)
[2016-05-19] MEDS ORDERED: PNEUMONIA PROTOCOL UTILIZED 1 EACH MISC PO PRN (00:19)
[2016-05-19] MEDS ORDERED: PIPERACILLIN-TAZOBACTAM 3.375 GM in DEXTROSE/WATER 1 50ML.BAG IVPB STA (00:19)
[2016-05-19] MEDS ORDERED: HEPARIN SODIUM,PORCINE 5,000 UNIT/ML 1 ML VIAL IV ONE (00:21)
[2016-05-19] MEDS: DILTIAZEM 125 MG in SODIUM CHLORIDE 0.9% 100 ML IV ONE ×2 (00:31→13:37)
[2016-05-19] MEDS: HEPARIN SODIUM,PORCINE/D5W PMX 25,000 UNIT in DEXTROSE/WATER 1 500ML.BAG IV SCH (00:46)
[2016-05-19] MEDS: SODIUM CHLORIDE 0.9% 1,000 ML IV SCH ×3 (02:36→21:58)
[2016-05-19 03:55] LABS: Glucose,Whole Blood 263 mg/dL (75-99)
[2016-05-19] MEDS ORDERED: ONDANSETRON 4 MG/2 ML VIAL IVP PRN (05:51)
[2016-05-19 05:53] LABS: Glucose,Whole Blood 241 mg/dL (75-99)
[2016-05-19] MEDS ORDERED: INSULIN GLARGINE 100 UNIT/ML 10 ML VIAL SQ ONE (05:53)
[2016-05-19] MEDS: IPRATROPIUM-ALBUTEROL 3 ML NEB INHALATION SCH ×4 (08:14→19:08)
[2016-05-19 12:19] LABS: Glucose,Whole Blood 224 mg/dL (75-99)
[2016-05-19] MEDS: PIPERACILLIN-TAZOBACTAM 3.375 GM in DEXTROSE/WATER 1 50ML.BAG IVPB SCH ×2 (13:06→20:12)
[2016-05-19] MEDS: methylPREDNISolone SOD SUCCI 125 MG/2 ML VIAL IV SCH ×2 (13:07→17:21)
[2016-05-19 13:24] LABS: Hemoglobin A1C 6.5 % (4.2-6.1)
[2016-05-19] MEDS: INSULIN LISPRO (humaLOG) 300 UNIT/3 ML VIAL SQ SCH ×3 (13:38→21:09)
[2016-05-19] MEDS: HEPARIN SODIUM,PORCINE 5,000 UNIT/ML 1 ML VIAL IV PRN ×2 (15:20→22:22)
[2016-05-19] MEDS ORDERED: IV VANCOMYCIN PER PHARMACY 1 EACH MISC MISCELLANE PRN (16:14)
--- NOTE | 2016-05-19 16:24 | P.HPIM ---
History of Present Illness H&P Date: 05/19/16 70-year-old gentleman with history of B cell lymphoma currently in remission after stem cell transportation and chemotherapy with history of paroxysmal atrial fibrillation comes in the hospital with the generalized weakness and difficulty breathing for the last few days prior to admission. Patient states that he has had progressive worsening of dyspnea states to have a cough that is productive in nature. Patient states his cough has been producing pinkish red fluid. Patient states to have had associated chills and mild episodes of fevers over the last few days. Patient has had multiple episodes of pneumonia including influenza pneumonitis which required endotracheal intubation and support within the last year. Currently patient underwent a computed tomography scan of the chest which shows multifocal pneumonia however there is significant fluid noted in the lobar creases. states to be feeling slightly improved denies having headaches, blurry vision, nausea, vomiting, diarrhea, urinary urgency or frequency. Her graft patient does not recall why he is not on anticoagulation upon review of previous notes patient was apparently critically ill hence was discharged without anticoagulation and only on aspirin. in the emergency room patient was noted to have tachycardia was started on a Cardizem drip currently at 10 mg per hour. Blood cultures were also positive with gram-positive cocci in pairs. Review of Systems All systems: negative (noted in HPI) Past Medical History Past Medical History: Cancer, Diabetes Mellitus, Hypertension, Pneumonia Additional Past Medical History / Comment(s): lymphoma 4 times. Has a history of histoplasmosis which required the lung resection at [facility] History of Any Multi-Drug Resistant Organisms: MRSA Date of last positivie culture/infection: 04/14/16 MDRO Source:: Sputum Past Surgical History: Cholecystectomy, Hernia Repair Additional Past Surgical History / Comment(s): stem cell transplant Past Anesthesia/Blood Transfusion Reactions: No Reported Reaction Past Psychological History: No Psychological Hx Reported Additional Psychological History / Comment(s): . retired [employer]. No experience. No international travel. No animal exposures Smoking Status: Never smoker Past Alcohol Use History: None Reported Past Drug Use History: None Reported - Past Family History Mother Family Medical History: Thyroid Disorder Medications and Allergies Home Medications Medication Instructions Recorded Confirmed Type Acyclovir [Zovirax] 400 mg PO BID 04/13/16 05/18/16 History Clopidogrel [Plavix] 75 mg PO DAILY 04/13/16 05/18/16 History Furosemide [Lasix] 20 mg PO BID 04/13/16 05/18/16 History Insulin Glargine [Lantus] 35 unit SQ HS 04/13/16 05/18/16 History Metoprolol Tartrate [Lopressor] 25 mg PO BID 04/13/16 05/18/16 History Multivitamins, Thera [Multivitamin 1 tab PO DAILY 04/13/16 05/18/16 History (formulary)] Aspirin EC [Ecotrin Low Dose] 81 mg PO DAILY 05/18/16 05/18/16 History HYDROcodone/APAP 5-325MG [[place] 1 tab PO DAILY PRN 05/18/16 05/18/16 History 5-325] Ipratropium-Albuterol Nebulize 3 ml INHALATION RT-QID PRN 05/18/16 05/18/16 History [Duoneb 0.5 mg-3 mg/3 ml Soln] Lactulose 20 gm PO BID PRN 05/18/16 05/18/16 History Potassium Chloride ER [K-Dur 10] 10 meq PO DAILY 05/18/16 05/18/16 History Saw [place] 1,000 mg PO BID 05/18/16 05/18/16 History Allergies Allergy/AdvReac Type Severity Reaction Status Date / Time No Known Allergies Allergy Verified 05/18/16 22:44 Physical Exam Vitals: Vital Signs Temp Pulse Pulse Resp BP BP Pulse Ox 05/19/16 16:04 88 05/19/16 11:59 88 05/19/16 11:50 88 05/19/16 11:44 20 05/19/16 11:00 96.9 F L 87 20 98/51 91 L 05/19/16 09:30 116 H 20 05/19/16 08:29 88 05/19/16 08:26 96.7 F L 94 20 114/69 89 L 05/19/16 08:17 88 05/19/16 08:00 94 20 05/19/16 03:42 20 05/19/16 03:23 96.9 F L 91 20 107/56 89 L 05/19/16 03:03 96.7 F L 128 H 18 105/67 91 L 05/19/16 02:02 138 H 18 100/51 91 L 05/19/16 00:54 153 H 05/19/16 00:42 97.9 F 05/19/16 00:38 146 H 05/19/16 00:21 139 H 20 123/64 91 L Intake and Output 05/19/16 05/19/16 05/19/16 06:59 14:59 22:59 Intake Total 12.583 105.833 285.687 Balance 12.583 105.833 285.687 Intake: Intake, IV Titration 12.583 105.833 285.687 Amount Diltiazem 125 mg In 12.583 105.833 Sodium Chloride 0.9% 100 ml @ 5 MG/HR 5 mls/hr IV .Q24H ONE Rx#:[id number] Heparin Sodium,Porcine/ 285.687 D5w Pmx 25,000 unit In Dextrose/Water 1 500ml. bag @ 12 UNITS/KG/HR 19. 59 mls/hr IV .Q24H [facility] Rx #:[id number] Other: # Voids 1 2 # Bowel Movements 1 Weight 85 kg Physical exam Gen. appearance oriented 3 in no distress Neck is supple no JVD Lungs diffuse crackles bilaterally no rhonchi or wheezing appreciated no lower extremity edema noted. Heart S1-S2 heard regular rate and rhythm no murmurs appreciated Abdomen is soft nontender no organomegaly bowel sounds are intacttenderness in the left lower quadrant which is chronic Neurologically cranial nerves II-12 grossly intact no focal motor or sensory deficits noted Skin no abnormalities appreciated Results CBC & Chem 7: 05/18/16 22:40 05/18/16 22:40 Labs: Abnormal Lab Results - Last 24 Hours (Table) 05/19/16 05/19/16 05/19/16 Range/Units 03:52 05:46 06:12 APTT 38.1 H (22.0-30.0) sec POC Glucose (mg/dL) 263 H 241 H (75-99) mg/dL Hemoglobin A1c (4.2-6.1) % 05/19/16 05/19/16 05/19/16 Range/Units 06:12 11:48 12:00 APTT 35.1 H (22.0-30.0) sec POC Glucose (mg/dL) 224 H (75-99) mg/dL Hemoglobin A1c 6.5 H (4.2-6.1) % Microbiology - Last 24 Hours (Table) 05/19/16 00:21 Blood Culture Gram Stain - Preliminary Blood Thrombosis Risk Factor Assmnt - Choose All That Apply Any of the Below Risk Factors Present?: Yes Assessment and Plan Plan: acute hypoxic respiratory failure secondary to multifocal pneumonia in a patient that is immunocompromised. #2 sepsis secondary to above #3 diabetes mellitus type 2 #4 hypertension #5 B-cell lymphoma #6 paroxysmal atrial fibrillation #7 sinus tachycardia multiple PACs present on admission at this time #8indeterminate troponin leak likely secondary to above plan Patient did have MRSA pneumonia. We'll change his antibody coverage to Zosyn and vancomycin. We'll decrease the steroid use patient has been a lifelong nonsmoker we'll change it to 30 twice a day. Continue with breathing treatments. Patient does appear to have more of a fluid overload state DC IV fluids given a dose of IV Lasix at 40 mg. Restart metoprolol 25 mg by mouth twice a day. Continue heparin patient may be a candidate for long-term anticoagulation as patient is more active at this time and has a history of proximal atrial fibrillation and his risk for stroke with his age itself is greater than. A repeat echocardiogram will be done. Consult cardiology.
--- NOTE | 2016-05-19 16:39 | P.CRDCN ---
History of Present Illness Consult date: 05/19/16 Requesting physician: Javier Alejandro Consult reason: shortness of breath Chief complaint: Shortness of breath and cough History of present illness: This is a 70-year-old gentleman with history of lymphoma, status post voluntary transplant, hypertension, lymphoma, history of paroxysmal atrial fibrillation, recurrent admissions for sepsis and pneumonia. Resented to the hospital again on this occasion with symptoms of progressively worsening shortness of breath. Patient also states that he has been experiencing fever and chills at home and has been coughing up pinkish colored sputum. Patient has also had recent admissions to the hospital with pneumonia requiring intubation. White blood cell count 23.9, hemoglobin 13.0, d-dimer 4.05, sodium 133, BUN 39, creatinine 1.1. BNP level 4700, troponin 0.175. Influenza A and B -. EKG on arrival showed normal sinus rhythm/sinus tachycardia with incomplete right bundle branch block pattern and PACs. CT of the abdomen and pelvis was performed which revealed wall thickening of the base of the skin with mild surrounding fat may represent colitis. Diverticulosis. CTA of the chest was performed which did not reveal any evidence of a pulmonary embolism but did reveal evidence of multifocal pneumonia and a trace left pleural effusion. Because of the tachycardia, patient was initiated on IV Cardizem drip in the emergency room. Blood cultures positive for gram-positive cocci in pairs. Temperature 100.9 on arrival. Past Medical History Past Medical History: Cancer, Diabetes Mellitus, Hypertension, Pneumonia Additional Past Medical History / Comment(s): lymphoma 4 times. Has a history of histoplasmosis which [facility] History of Any Multi-Drug Resistant Organisms: MRSA Date of last positivie culture/infection: 04/14/16 MDRO Source:: Sputum Past Surgical History: Cholecystectomy, Hernia Repair Additional Past Surgical History / Comment(s): stem cell transplant Past Anesthesia/Blood Transfusion Reactions: No Reported Reaction Past Psychological History: No Psychological Hx Reported Additional Psychological History / Comment(s): . 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 No international travel. No animal exposures Smoking Status: Never smoker Past Alcohol Use History: None Reported Past Drug Use History: None Reported - Past Family History Mother Family Medical History: Thyroid Disorder Medications and Allergies Home Medications Medication Instructions Recorded Confirmed Type Acyclovir [Zovirax] 400 mg PO BID 04/13/16 05/18/16 History Clopidogrel [Plavix] 75 mg PO DAILY 04/13/16 05/18/16 History Furosemide [Lasix] 20 mg PO BID 04/13/16 05/18/16 History Insulin Glargine [Lantus] 35 unit SQ HS 04/13/16 05/18/16 History Metoprolol Tartrate [Lopressor] 25 mg PO BID 04/13/16 05/18/16 History Multivitamins, Thera [Multivitamin 1 tab PO DAILY 04/13/16 05/18/16 History (formulary)] Aspirin EC [Ecotrin Low Dose] 81 mg PO DAILY 05/18/16 05/18/16 History HYDROcodone/APAP 5-325MG [[place] 1 tab PO DAILY PRN 05/18/16 05/18/16 History 5-325] Ipratropium-Albuterol Nebulize 3 ml INHALATION RT-QID PRN 05/18/16 05/18/16 History [Duoneb 0.5 mg-3 mg/3 ml Soln] Lactulose 20 gm PO BID PRN 05/18/16 05/18/16 History Potassium Chloride ER [K-Dur 10] 10 meq PO DAILY 05/18/16 05/18/16 History Saw [place] 1,000 mg PO BID 05/18/16 05/18/16 History Allergies Allergy/AdvReac Type Severity Reaction Status Date / Time No Known Allergies Allergy Verified 05/18/16 22:44 Physical Exam Vitals: Vital Signs Temp Pulse Pulse Resp BP BP Pulse Ox 05/19/16 11:59 88 05/19/16 11:50 88 05/19/16 11:44 20 05/19/16 11:00 96.9 F L 87 20 98/51 91 L 05/19/16 09:30 116 H 20 05/19/16 08:29 88 05/19/16 08:26 96.7 F L 94 20 114/69 89 L 05/19/16 08:17 88 05/19/16 08:00 94 20 05/19/16 03:42 20 05/19/16 03:23 96.9 F L 91 20 107/56 89 L 05/19/16 03:03 96.7 F L 128 H 18 105/67 91 L 05/19/16 02:02 138 H 18 100/51 91 L 05/19/16 00:54 153 H 05/19/16 00:42 97.9 F 05/19/16 00:38 146 H 05/19/16 00:21 139 H 20 123/64 91 L Intake and Output 05/19/16 05/19/16 05/19/16 06:59 14:59 22:59 Intake Total 12.583 105.833 285.687 Balance 12.583 105.833 285.687 Intake: Intake, IV Titration 12.583 105.833 285.687 Amount Diltiazem 125 mg In 12.583 105.833 Sodium Chloride 0.9% 100 ml @ 5 MG/HR 5 mls/hr IV .Q24H ONE Rx#:[id number] Heparin Sodium,Porcine/ 285.687 D5w Pmx 25,000 unit In Dextrose/Water 1 500ml. bag @ 12 UNITS/KG/HR 19. 59 mls/hr IV .Q24H [facility] Rx #:[id number] Other: # Voids 1 2 # Bowel Movements 1 Weight 85 kg PHYSICAL EXAMINATION: HEENT: Head is atraumatic, normocephalic. Pupils equal, round. Neck is supple. There is no elevated jugular venous pressure. HEART EXAMINATION: Heart S1, S2 normal. No murmur or gallop heard. CHEST EXAMINATION: Lungs reveal scattered rhonchi and wheezing throughout. ABDOMEN: Soft, nontender. Bowel sounds are heard. No organomegaly noted. EXTREMITIES: 2+ peripheral pulses with no evidence of peripheral edema and no calf tenderness noted. NEUROLOGIC patient is awake, alert and oriented -3. . Results 05/18/16 22:40 05/18/16 22:40 Coagulation 05/19/16 05/19/16 Range/Units 06:12 11:48 APTT 38.1 H 35.1 H (22.0-30.0) sec Current Medications Generic Name Dose Route Start Last Admin Trade Name Freq PRN Reason Stop Dose Admin Hydrocodone Bitart/Acetaminophen 1 each 05/19/16 05:53 [place] 5-325 PO DAILY PRN Pain Albuterol/Ipratropium 3 ml 05/19/16 08:00 05/19/16 11:48 Duoneb 0.5 Mg-3 Mg/3 Ml Soln INHALATION 3 ml RT-QID ESTUARDO Administration Budesonide 0.5 mg 05/19/16 20:00 Pulmicort INHALATION RT-BID ESTUARDO Heparin Sodium (Porcine) 0 unit 05/19/16 00:21 05/19/16 15:20 Heparin IV 4,000 unit PER PROTOCOL PRN Administration Low PTT Protocol Diltiazem HCl 125 mg/ Sodium 125 mls @ 5 mls/hr 05/19/16 00:13 05/19/16 13:37 Chloride IV 05/20/16 00:12 10 mg/hr .Q24H ONE 10 mls/hr 5 MG/HR Administration Levofloxacin 750 mg/ IV 150 mls @ 100 mls/hr 05/19/16 23:00 Solution IVPB 06/01/16 23:01 Q24H ESTUARDO Piperacillin/Tazobactam/ 50 mls @ 12.5 mls/hr 05/19/16 12:00 05/19/16 13:06 Dextrose 3.375 gm/ IV Solution IVPB 12.5 mls/hr Q8H ESTUARDO Administration Sodium Chloride 1,000 mls @ 100 mls/hr 05/19/16 00:30 05/19/16 06:16 Saline 0.9% IV 100 mls/hr .Q10H ESTUARDO Administration Heparin Sodium/Dextrose 25,000 500 mls @ 19.59 mls/hr 05/19/16 00:30 15:21 unit/ IV Solution IV 15 units/kg/hr .Q24H [facility]UARDO 24.49 mls/hr Protocol Titration 12 UNITS/KG/HR Insulin Glargine 35 unit 05/19/16 21:00 Lantus SQ HS ESTUARDO Insulin Human Lispro 0 unit 05/19/16 12:30 05/19/16 13:38 Humalog SQ 7 unit ACHS ESTUARDO Administration Protocol Methylprednisolone Sodium Succinate 60 mg 05/19/16 10:45 05/19/16 13:07 Solu-Medrol IV 60 mg Q8HR ESTUARDO Administration Miscellaneous Information 1 each 05/18/16 22:32 Rx Info: Iv Contrast Was Given MISCELLANE 05/20/16 22:32 DAILY PRN Per Protocol Miscellaneous Information 1 each 05/19/16 00:19 Pneumonia Protocol Utilized PO ONCE PRN Per Protocol Ondansetron HCl 4 mg 05/19/16 05:51 05/19/16 06:08 Zofran IVP 4 mg Q6HR PRN Administration Nausea And Vomiting Intake and Output 05/19/16 05/19/16 05/19/16 06:59 14:59 22:59 Intake Total 12.583 105.833 285.687 Balance 12.583 105.833 285.687 Intake: Intake, IV Titration 12.583 105.833 285.687 Amount Diltiazem 125 mg In 12.583 105.833 Sodium Chloride 0.9% 100 ml @ 5 MG/HR 5 mls/hr IV .Q24H ONE Rx#:[id number] Heparin Sodium,Porcine/ 285.687 D5w Pmx 25,000 unit In Dextrose/Water 1 500ml. bag @ 12 UNITS/KG/HR 19. 59 mls/hr IV .Q24H [facility] Rx #:[id number] Other: # Voids 1 2 # Bowel Movements 1 Weight 85 kg EKG Interpretations (text) EKG shows a sinus tachycardia with right bundle branch block pattern and occasional PACs. Assessment and Plan Plan: Assessment and plan #1 acute respiratory failure secondary to pneumonia #2 diabetes #3 hypertension #4 hyperlipidemia Number 5 paroxysmal atrial fibrillation #6 B cell lymphoma #7 sinus tachycardia with multiple PACs, no current evidence of atrial fibrillation #8 abnormal troponins, 0.175. Patient denies having any chest discomfort. #9 mild congestive cardiac failure, likely diastolic in nature. Patient's most recent echocardiogram with Doppler study was performed in April 2015 which revealed a normal ejection fraction at that time. Plan We will obtain an echocardiogram with Doppler study. We will also continue the IV heparin. Obtained to further troponin values. Give the patient 2 doses of IV Lasix. Check lytes BUN and creatinine in the morning. Further recommendations will be based on these findings and the patient's clinical course. DNP note has been reviewed, I agree with a documented findings and plan of care. Patient was seen and examined.
[2016-05-19] MEDS ORDERED: VANCOMYCIN 1,500 MG in SODIUM CHLORIDE 0.9% 250 ML IVPB ONE (17:00)
[2016-05-19 17:07] LABS: Glucose,Whole Blood 250 mg/dL (75-99)
[2016-05-19] MEDS: FUROSEMIDE 10 MG/ML 4 ML VIAL IV SCH ×2 (17:24→22:27)
[2016-05-19] MEDS: BUDESONIDE 0.5 MG/2 ML NEBU INHALATION SCH (19:08)
[2016-05-19 20:56] LABS: Glucose,Whole Blood 349 mg/dL (75-99)
[2016-05-19] MEDS ORDERED: INSULIN GLARGINE 100 UNIT/ML 10 ML VIAL SQ SCH ×2 (21:00)
[2016-05-19] MEDS ORDERED: METOPROLOL TARTRATE 25 MG TAB PO SCH (21:00)
[2016-05-19] MEDS ORDERED: INSULIN LISPRO (humaLOG) 300 UNIT/3 ML VIAL SQ ONE (21:10)
[2016-05-19] MEDS: HYDROcodone/APAP 5-325MG 1 EACH TAB PO PRN (21:27)
[2016-05-19] MEDS: methylPREDNISolone SOD SUCCI 40 MG/ML 1 ML VIAL IV SCH (21:54)
[2016-05-19] MEDS: METOPROLOL TARTRATE 25 MG TAB PO SCH (21:55)
[2016-05-19] MEDS ORDERED: LEVOFLOXACIN 750MG-D5W PMX 750 MG in DEXTROSE/WATER 1 150ML.BAG IVPB SCH (23:00)
--- NOTE | 2016-05-20 04:19 | CONS ---
DATE OF CONSULTATION: 05/19/2016 Mr. Phillips was seen by me on 05/19/2016. I reviewed the consultation dictated by Sarah Rosenberg, nurse practitioner. This patient has history of coronary artery disease with previous PCI. However, the details are not available. I will review additional information in this regard. He came in with increasing shortness of breath and he has what seems to be a combination of pneumonia with exacerbation of chronic obstructive pulmonary disease. He does not have any chest discomfort to suggest angina. His troponin profile does not suggest any clear-cut to myocardial injury. However, in the setting of hypoxia it is quite possible this may represent a type II non-ST elevation DC type picture. He is also in mild congestive heart failure with elevated BNP. Patient is being diuresed. I will increase the beta tete. He appears to be in a sinus rhythm with frequent PACs. I am recommending that we continue current medical therapy with IV heparin and also increase the beta tete and continue his other medications. Based on clinical course, I will make further recommendations. Apparently he had an echocardiogram that was performed in April which revealed preserved systolic function. The patient may therefore have some diastolic dysfunction in addition to some exacerbation of chronic obstructive pulmonary disease. We will diurese him, increase beta tete and based on clinical course, I will make further recommendations.
[2016-05-20 04:20] LABS: Glucose,Whole Blood 251 mg/dL (75-99)
[2016-05-20] MEDS: PIPERACILLIN-TAZOBACTAM 3.375 GM in DEXTROSE/WATER 1 50ML.BAG IVPB SCH ×3 (05:03→20:21)
[2016-05-20] MEDS: HEPARIN SODIUM,PORCINE/D5W PMX 25,000 UNIT in DEXTROSE/WATER 1 500ML.BAG IV SCH (05:04)
[2016-05-20 05:30] LABS: Aty Lym Flag Moderate; CH 30.6; CHCM 32.9; HCT 38.3 % (39.0-53.0); HDW 2.96; HGB 12.5 gm/dL (13.0-17.5); MCH 30.4 pg (25.0-35.0); MCHC 32.6 g/dL (31.0-37.0); MCV 93.4 fL (80.0-100.0); Mean Platelet Volume 7.8; RDW 14.9 % (11.5-15.5); WBC 22.3 k/uL (3.8-10.6); WBC (Perox) 22.79
[2016-05-20 05:34] LABS: ALT 29 U/L (21-72); AST 28 U/L (17-59); Alkaline Phosphatase 77 U/L (38-126); Anion Gap 12 mmol/L; Blood Urea Nitrogen 35 mg/dL (9-20); Calcium 7.9 mg/dL (8.4-10.2); Carbon Dioxide 27 mmol/L (22-30); Chloride 99 mmol/L (98-107); Glucose 218 mg/dL (74-99); Non-African American GFR(MDRD) >60 (>60 ml/min/1.73 sqM); Potassium 3.1 mmol/L (3.5-5.1); Sodium 138 mmol/L (137-145); Total Bilirubin 0.5 mg/dL (0.2-1.3); Total Protein 5.3 g/dL (6.3-8.2)
[2016-05-20 05:49] LABS: Glucose,Whole Blood 210 mg/dL (75-99)
[2016-05-20] MEDS: INSULIN LISPRO (humaLOG) 300 UNIT/3 ML VIAL SQ SCH ×4 (06:31→21:08)
[2016-05-20] MEDS: SODIUM CHLORIDE 0.9% 1,000 ML IV SCH ×2 (06:33→16:47)
[2016-05-20] MEDS: METOPROLOL TARTRATE 25 MG TAB PO SCH ×3 (07:52→21:10)
--- NOTE | 2016-05-20 08:15 | XR ---
EXAMINATION TYPE: XR chest 2V DATE OF EXAM: 05/20/2016 7:12 AM COMPARISON: Prior chest x-ray 13 April 2016 HISTORY: Abnormal chest x-ray, pneumonia, hypertension, TECHNIQUE: Frontal and lateral views of the chest are obtained. FINDINGS: There is been interval development of prominence of the interstitium, basilar increased de nsity is noted. The heart is enlarged. Postop changes are noted to the spine as on prior exam. There is no pneumothorax. There are overlying cardiac leads. IMPRESSION: Findings could represent volume overload or interstitial edema, pulmonary venous hyperte nsion, correlate to exclude congestive heart failure, additional follow-up is recommended. Pneumonia not excluded. Difficult to exclude effusion.
[2016-05-20 08:55] LABS: Add Differential Manual Differential
[2016-05-20 08:58] LABS: Manual Review Performed; Nucleated Red Blood Cells 0 /100 WBC (0-0); Total Cells Counted 100
[2016-05-20] MEDS ORDERED: CLOPIDOGREL 75 MG TAB PO SCH (09:00)
[2016-05-20] MEDS: ASPIRIN 81 MG CHEW PO SCH (09:15)
--- NOTE | 2016-05-20 09:53 | P.CNPUL ---
History of Present Illness Consult date: 05/19/16 Requesting physician: Akhil Quiros Reason for consult: pneumonia Chief complaint: Shortness of breath History of present illness: This is a 70-year-old male who is being evaluated and examined today on the sixth floor. This patient came into the emergency room for evaluation of shortness of breath and resting chest pain. CT of the abdomen and pelvis revealed wall thickening of the base of the cecum with mild surrounding that stranding which may represent colitis or possible inflammatory process, diverticulosis without evidence of diverticulitis, and increased perinephric stranding bilaterally. Patient also had a CTA which revealed no pulmonary embolus that could be identified, multifocal pneumonia, trace left pleural effusion and small right pleural effusion, probable mildly prominent subcarnial lymph nodes that are nonspecific. After evaluation from the emergency room the patient was admitted with pneumonia, sepsis, non-STEMI, proximal atrial fibrillation, and fever. This patient is well-known to our service. This patient has had recent hospitalizations regarding respiratory failure. Upon examination the patient is resting up in bed on 6 L of oxygen. Patient continues to complain of a productive cough and has difficulty bringing up any secretions. Review of Systems 14 point review of systems was completed and is negative other than what is noted in the HPI Past Medical History Past Medical History: Cancer, Diabetes Mellitus, Hypertension, Pneumonia Additional Past Medical History / Comment(s): lymphoma 4 times. Has a history of histoplasmosis which required the lung resection at [facility] History of Any Multi-Drug Resistant Organisms: MRSA Date of last positivie culture/infection: 04/14/16 MDRO Source:: Sputum Past Surgical History: Cholecystectomy, Hernia Repair Additional Past Surgical History / Comment(s): stem cell transplant Past Anesthesia/Blood Transfusion Reactions: No Reported Reaction Past Psychological History: No Psychological Hx Reported Additional Psychological History / Comment(s): . 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 No international travel. No animal exposures Smoking Status: Never smoker Past Alcohol Use History: None Reported Past Drug Use History: None Reported - Past Family History Mother Family Medical History: Thyroid Disorder Medications and Allergies Home Medications Medication Instructions Recorded Confirmed Type Acyclovir [Zovirax] 400 mg PO BID 04/13/16 05/18/16 History Clopidogrel [Plavix] 75 mg PO DAILY 04/13/16 05/18/16 History Furosemide [Lasix] 20 mg PO BID 04/13/16 05/18/16 History Insulin Glargine [Lantus] 35 unit SQ HS 04/13/16 05/18/16 History Metoprolol Tartrate [Lopressor] 25 mg PO BID 04/13/16 05/18/16 History Multivitamins, Thera [Multivitamin 1 tab PO DAILY 04/13/16 05/18/16 History (formulary)] Aspirin EC [Ecotrin Low Dose] 81 mg PO DAILY 05/18/16 05/18/16 History HYDROcodone/APAP 5-325MG [[place] 1 tab PO DAILY PRN 05/18/16 05/18/16 History 5-325] Ipratropium-Albuterol Nebulize 3 ml INHALATION RT-QID PRN 05/18/16 05/18/16 History [Duoneb 0.5 mg-3 mg/3 ml Soln] Lactulose 20 gm PO BID PRN 05/18/16 05/18/16 History Potassium Chloride ER [K-Dur 10] 10 meq PO DAILY 05/18/16 05/18/16 History Saw [place] 1,000 mg PO BID 05/18/16 05/18/16 History Allergies Allergy/AdvReac Type Severity Reaction Status Date / Time No Known Allergies Allergy Verified 05/18/16 22:44 Physical Exam Vitals: Vital Signs Temp Pulse Pulse Resp BP BP Pulse Ox 05/19/16 09:30 116 H 20 05/19/16 08:29 88 05/19/16 08:26 96.7 F L 94 20 114/69 89 L 05/19/16 08:17 88 05/19/16 03:42 20 05/19/16 03:23 96.9 F L 91 20 107/56 89 L 05/19/16 03:03 96.7 F L 128 H 18 105/67 91 L 05/19/16 02:02 138 H 18 100/51 91 L 05/19/16 00:54 153 H 05/19/16 00:42 97.9 F 05/19/16 00:38 146 H 05/19/16 00:21 139 H 20 123/64 91 L Intake and Output 05/18/16 05/19/16 05/19/16 22:59 06:59 14:59 Intake Total 12.583 Balance 12.583 Intake: Intake, IV Titration 12.583 Amount Diltiazem 125 mg In 12.583 Sodium Chloride 0.9% 100 ml @ 5 MG/HR 5 mls/hr IV .Q24H ONE Rx#:[id number] Other: # Voids 1 Weight 85 kg GENERAL EXAM: Alert, active, comfortable in no apparent distress. HEAD: Normocephalic. EYES: Normal reaction of pupils, equal size. NOSE: Clear with pink turbinates. THROAT: No erythema or exudates. NECK: No masses, no JVD. CHEST: No chest wall deformity. LUNGS: Equal air entry which is course, some scattered rhonchi noted basis diminished. CVS: S1 and S2 normal with no audible mumurs, ABDOMEN: No hepatosplenomegaly, normal bowel sounds, no guarding or rigidity. EXTREMITIES: No edema noted, pedal pulses palpable. SKIN: No rashes CENTRAL NERVOUS SYSTEM: No focal deficits, tone is normal in all 4 extremities. Results - Laboratory Findings CBC and BMP: 05/20/16 04:25 05/20/16 04:25 PT/INR, D-dimer PT 11.8 sec (9.0-12.0) 05/18/16 22:40 INR 1.2 (<1.1) 05/18/16 22:40 D-Dimer 4.05 mg/L FEU (<0.60) H 05/18/16 22:40 Abnormal lab findings: Abnormal Labs 05/19/16 05/19/16 05/19/16 03:52 05:46 06:12 APTT 38.1 H POC Glucose (mg/dL) 263 H 241 H - Diagnostic Findings CT scan - chest: report reviewed Assessment and Plan Plan: Assessment Community-acquired pneumonia with sepsis Acute respiratory failure secondary to pneumonia Paroxysmal Atrial fibrillation Elevated troponins Congestive heart failure, likely diastolic B-cell lymphoma Diabetes mellitus Hypertension Plan Medications have been reviewed and will be continued as ordered. We will add budesonide to his current nebulizer treatments. We will also start the patient on steroids and continue to monitor blood sugars. Incentive spirometer has been initiated and will be encouraged. We will continue to monitor labs/ results and adjust treatment as necessary. I performed an examination of the patient and discussed their management with the nurse practitioner. I have reviewed the nurse practitioner's note and agree with the documented findings and plan of care.
--- NOTE | 2016-05-20 09:57 | P.PN ---
Subjective This is a 70-year-old male who is being evaluated and examined today on the sixth floor. This patient came into the emergency room for evaluation of shortness of breath and resting chest pain. CT of the abdomen and pelvis revealed wall thickening of the base of the cecum with mild surrounding that stranding which may represent colitis or possible inflammatory process, diverticulosis without evidence of diverticulitis, and increased perinephric stranding bilaterally. Patient also had a CTA which revealed no pulmonary embolus that could be identified, multifocal pneumonia, trace left pleural effusion and small right pleural effusion, probable mildly prominent subcarnial lymph nodes that are nonspecific. After evaluation from the emergency room the patient was admitted with pneumonia, sepsis, non-STEMI, proximal atrial fibrillation, and fever. This patient is well-known to our service. This patient has had recent hospitalizations regarding respiratory failure. Upon examination the patient is resting up in bed on 6 L of oxygen. Patient continues to complain of a productive cough and has difficulty bringing up any secretions. Chest x-ray this morning reveals fluid volume overload or interstitial edema, pulmonary venous hypertension, correlate to exclude congestive heart failure, pneumonia cannot be excluded and effusions cannot be excluded. Incentive spirometer encouraged. Objective - Vital Signs Vital signs: Vital Signs Temp 97.3 F L 05/20/16 07:40 Pulse 98 05/20/16 07:50 Resp 20 05/20/16 07:50 BP 115/57 05/20/16 07:40 Pulse Ox 93 L 05/20/16 07:40 Intake & Output 05/19/16 05/20/16 05/20/16 18:59 06:59 18:59 Intake Total 655.337 9811.313 Output Total 2300 Balance 711.520 14.313 Weight 84.7 kg Intake: IV 2100 Heparin Sodium,Porcine/ 400 D5w Pmx 25,000 unit In Dextrose/Water 1 500ml. bag @ 12 UNITS/KG/HR 19. 59 mls/hr IV .Q24H [facility] Rx #:[id number] Piperacillin-Tazobactam 3 100 .375 gm In Dextrose/Water 1 50ml.bag @ 12.5 mls/hr IVPB ONCE STA Rx#: [id number] Sodium Chloride 0.9% 1, 1600 000 ml @ 100 mls/hr IV . Q10H [facility] Rx#:[id number] Intake, IV Titration 391.520 214.313 Amount Diltiazem 125 mg In 105.833 Sodium Chloride 0.9% 100 ml @ 5 MG/HR 5 mls/hr IV .Q24H ONE Rx#:[id number] Heparin Sodium,Porcine/ 285.687 214.313 D5w Pmx 25,000 unit In Dextrose/Water 1 500ml. bag @ 12 UNITS/KG/HR 19. 59 mls/hr IV .Q24H [facility] Rx #:[id number] Oral 320 Output: Urine 2300 Other: # Voids 2 1 # Bowel Movements 1 1 - Exam GENERAL EXAM: Alert, active, comfortable in no apparent distress. HEAD: Normocephalic. EYES: Normal reaction of pupils, equal size. NOSE: Clear with pink turbinates. THROAT: No erythema or exudates. NECK: No masses, no JVD. CHEST: No chest wall deformity. LUNGS: Equal air entry which is coarse, some scattered rhonchi noted bases diminished CVS: S1 and S2 normal with no audible mumurs, ABDOMEN: No hepatosplenomegaly, normal bowel sounds, no guarding or rigidity. EXTREMITIES: No edema noted, pedal pulses palpable. SKIN: No rashes CENTRAL NERVOUS SYSTEM: No focal deficits, tone is normal in all 4 extremities. - Labs CBC & Chem 7: 05/20/16 04:25 05/20/16 04:25 Labs: Abnormal Lab Results - Last 24 Hours (Table) 05/19/16 05/19/16 05/19/16 Range/Units 06:12 11:48 12:00 WBC (3.8-10.6) k/uL RBC (4.30-5.90) m/uL Hgb (13.0-17.5) gm/dL Hct (39.0-53.0) % Neutrophils # (Manual) (1.3-7.7) k/uL Monocytes # (Manual) (0-1.0) k/uL APTT 35.1 H (22.0-30.0) sec Potassium (3.5-5.1) mmol/L BUN (9-20) mg/dL Glucose (74-99) mg/dL POC Glucose (mg/dL) 224 H (75-99) mg/dL Hemoglobin A1c 6.5 H (4.2-6.1) % Calcium (8.4-10.2) mg/dL Troponin I (0.000-0.034) ng/mL Total Protein (6.3-8.2) g/dL Albumin (3.5-5.0) g/dL 05/19/16 05/19/16 05/19/16 Range/Units 15:59 17:04 20:21 WBC (3.8-10.6) k/uL RBC (4.30-5.90) m/uL Hgb (13.0-17.5) gm/dL Hct (39.0-53.0) % Neutrophils # (Manual) (1.3-7.7) k/uL Monocytes # (Manual) (0-1.0) k/uL APTT (22.0-30.0) sec Potassium (3.5-5.1) mmol/L BUN (9-20) mg/dL Glucose (74-99) mg/dL POC Glucose (mg/dL) 250 H 349 H (75-99) mg/dL Hemoglobin A1c (4.2-6.1) % Calcium (8.4-10.2) mg/dL Troponin I 0.060 H* (0.000-0.034) ng/mL Total Protein (6.3-8.2) g/dL Albumin (3.5-5.0) g/dL 05/19/16 05/19/16 05/20/16 Range/Units 21:24 21:24 00:09 WBC (3.8-10.6) k/uL RBC (4.30-5.90) m/uL Hgb (13.0-17.5) gm/dL Hct (39.0-53.0) % Neutrophils # (Manual) (1.3-7.7) k/uL Monocytes # (Manual) (0-1.0) k/uL APTT 36.8 H (22.0-30.0) sec Potassium (3.5-5.1) mmol/L BUN (9-20) mg/dL Glucose (74-99) mg/dL POC Glucose (mg/dL) 251 H (75-99) mg/dL Hemoglobin A1c (4.2-6.1) % Calcium (8.4-10.2) mg/dL Troponin I 0.056 H* (0.000-0.034) ng/mL Total Protein (6.3-8.2) g/dL Albumin (3.5-5.0) g/dL 05/20/16 05/20/16 05/20/16 Range/Units 04:25 04:25 04:25 WBC 22.3 H (3.8-10.6) k/uL RBC 4.10 L (4.30-5.90) m/uL Hgb 12.5 L (13.0-17.5) gm/dL Hct 38.3 L (39.0-53.0) % Neutrophils # (Manual) 20.1 H (1.3-7.7) k/uL Monocytes # (Manual) 1.1 H (0-1.0) k/uL APTT (22.0-30.0) sec Potassium 3.1 L (3.5-5.1) mmol/L BUN 35 H (9-20) mg/dL Glucose 218 H (74-99) mg/dL POC Glucose (mg/dL) (75-99) mg/dL Hemoglobin A1c (4.2-6.1) % Calcium 7.9 L (8.4-10.2) mg/dL Troponin I 0.047 H* (0.000-0.034) ng/mL Total Protein 5.3 L (6.3-8.2) g/dL Albumin 2.9 L (3.5-5.0) g/dL 05/20/16 05/20/16 Range/Units 04:25 05:42 WBC (3.8-10.6) k/uL RBC (4.30-5.90) m/uL Hgb (13.0-17.5) gm/dL Hct (39.0-53.0) % Neutrophils # (Manual) (1.3-7.7) k/uL Monocytes # (Manual) (0-1.0) k/uL APTT 49.6 H (22.0-30.0) sec Potassium (3.5-5.1) mmol/L BUN (9-20) mg/dL Glucose (74-99) mg/dL POC Glucose (mg/dL) 210 H (75-99) mg/dL Hemoglobin A1c (4.2-6.1) % Calcium (8.4-10.2) mg/dL Troponin I (0.000-0.034) ng/mL Total Protein (6.3-8.2) g/dL Albumin (3.5-5.0) g/dL Microbiology - Last 24 Hours (Table) 05/19/16 09:40 Gram Stain - Preliminary Sputum 05/19/16 00:21 Blood Culture Gram Stain - Preliminary Blood Blood Culture - Preliminary Streptococcus pneumoniae Assessment and Plan Plan: Assessment Community-acquired pneumonia with sepsis Acute respiratory failure secondary to pneumonia Paroxysmal Atrial fibrillation Indeterminate, Elevated troponins, cardiology following Congestive heart failure, likely diastolic B-cell lymphoma Diabetes mellitus Hypertension Plan Medications have been reviewed and will be continued as ordered. We will also continue the patient on steroids and continue to monitor blood sugars. Incentive spirometer has been initiated and will be encouraged. Sputum culture pending. We will continue to monitor labs/results and adjust treatment as necessary. I performed an examination of the patient and discussed their management with the nurse practitioner. I have reviewed the nurse practitioner's note and agree with the documented findings and plan of care.
[2016-05-20] MEDS: FUROSEMIDE 10 MG/ML 4 ML VIAL IV SCH ×3 (10:43→23:24)
[2016-05-20] MEDS: methylPREDNISolone SOD SUCCI 40 MG/ML 1 ML VIAL IV SCH ×2 (10:44→21:08)
[2016-05-20] MEDS: VANCOMYCIN 1,500 MG in SODIUM CHLORIDE 0.9% 250 ML IVPB SCH ×2 (10:44→23:25)
[2016-05-20] MEDS: IPRATROPIUM-ALBUTEROL 3 ML NEB INHALATION SCH ×4 (11:26→20:01)
[2016-05-20] MEDS: BUDESONIDE 0.5 MG/2 ML NEBU INHALATION SCH ×2 (11:26→20:01)
[2016-05-20] MEDS: POTASSIUM CHLORIDE 10 MEQ, LIDOCAINE 2% INJ 10 MG in SODIUM CHLORIDE 0.9% 100 ML IVPB SCH ×3 (11:58→15:30)
[2016-05-20 12:00] LABS: Glucose,Whole Blood 206 mg/dL (75-99)
[2016-05-20] MEDS: HYDROcodone/APAP 5-325MG 1 EACH TAB PO PRN (12:09)
--- NOTE | 2016-05-20 12:11 | ECHOF ---
Referral Reason:chf MEASUREMENTS -------- HEIGHT: 170.2 cm WEIGHT: 84.4 kg BP: 117/62 RVIDd: 3.9 cm (< 3.3) IVSd: 1.0 cm (0.6 - 1.1) LVIDd: 5.2 cm (3.9 - 5.3) LVPWd: 1.3 cm (0.6 - 1.1) IVSs: 1.8 cm LVIDs: 3.8 cm LVPWs: 1.7 cm LA Diam: 3.7 cm (2.7 - 3.8) LAESV Index (A-L): 25.32 ml/m Ao Diam: 3.4 cm (2.0 - 3.7) AV Cusp: 1.2 cm (1.5 - 2.6) LA Diam: 3.6 cm (2.7 - 3.8) MV EXCURSION: 11.800 mm (> 18.000) MV EF SLOPE: 57 mm/s (70 - 150) EPSS: 1.2 cm MV E Dontae: 0.84 m/s MV DecT: 174 ms MV A Dontae: 1.19 m/s MV E/A Ratio: 0.70 AR PHT: 663 ms RAP: 5.00 mmHg RVSP: 30.95 mmHg FINDINGS -------- Sinus rhythm. This was a technically good study. There is mild concentric left ventricular hypertrophy. Overall left ventricular systolic function is mild-moderately impaired with, an EF between 40 - 45 %. The diastolic filling pattern is normal for the age of the patient 22.57. Basal inferior LV wall motion is hypokinetic. Mid inferior LV wall motion is hypokinetic. The right ventricle is mild to moderately enlarged. Normal LA size by volume 22+/-6 ml/m2. The right atrium is normal in size. There is mild aortic valve sclerosis. There is tvgn-hq-wvwhxdvd aortic regurgitation. The mitral valve leaflets are mildly thickened. Moderate mitral annular calcification present. Qkvkejbf-sy-htlyww mitral regurgitation is present. Xsoy-uo-aarjkdvg tricuspid regurgitation present. The right ventricular systolic pressure, as measured by Doppler, is 30.95mmHg. Trace/mild (physiologic) pulmonic regurgitation. The aortic root size is normal. Normal inferior vena cava with normal inspiratory collapse consistent with estimated right atrial pressure of 5 mmHg. There is no pericardial effusion. CONCLUSIONS -------- 1. Sinus rhythm. 2. There is mild aortic valve sclerosis. 3. There is jtuw-wq-tmlertoy aortic regurgitation. 4. The mitral valve leaflets are mildly thickened. 5. Moderate mitral annular calcification present. 6. Onstfuve-as-tfweoq mitral regurgitation is present. 7. Xeii-jc-xltqbncj tricuspid regurgitation present. 8. The right ventricular systolic pressure, as measured by Doppler, is 30.95mmHg. 9. Trace/mild (physiologic) pulmonic regurgitation. 10. The aortic root size is normal. 11. Normal inferior vena cava with normal inspiratory collapse consistent with estimated right atrial pressure of 5 mmHg. 12. This was a technically good study. 13. There is no pericardial effusion. 14. There is mild concentric left ventricular hypertrophy. 15. The diastolic filling pattern is normal for the age of the patient 22.57 16. Basal inferior LV wall motion is hypokinetic. 17. Mid inferior LV wall motion is hypokinetic. 18. The right ventricle is mild to moderately enlarged. 19. Normal LA size by volume 22+/-6 ml/m2. 20. The right atrium is normal in size. IRON INSTALLER: Rosita Felder RDCS
--- NOTE | 2016-05-20 15:07 | PN ---
This gentleman presented with pneumonia, also had diastolic heart failure. He is breathing better. He is moving around and somewhat more active. However, he still has rales. We will continue Lasix IV for 2 more doses then switch him to oral Lasix after potassium supplements. He is advised to have an echocardiogram and a BMP will be checked tomorrow. His troponin profile does not suggest myocardial injury. Will switch him from IV heparin to subQ heparin, increase activity.
[2016-05-20] MEDS ORDERED: POTASSIUM CHLORIDE ER 20 MEQ TAB.ER PO STA (16:23)
[2016-05-20 17:02] LABS: Glucose,Whole Blood 264 mg/dL (75-99)
--- NOTE | 2016-05-20 17:43 | P.PN ---
Subjective 70-year-old gentleman with history of B cell lymphoma currently in remission after stem cell transportation and chemotherapy with history of paroxysmal atrial fibrillation comes in the hospital with the generalized weakness and difficulty breathing for the last few days prior to admission. Patient states that he has had progressive worsening of dyspnea states to have a cough that is productive in nature. Patient states his cough has been producing pinkish red fluid. Patient states to have had associated chills and mild episodes of fevers over the last few days. Patient has had multiple episodes of pneumonia including influenza pneumonitis which required endotracheal intubation and support within the last year. Currently patient underwent a computed tomography scan of the chest which shows multifocal pneumonia however there is significant fluid noted in the lobar creases. states to be feeling slightly improved denies having headaches, blurry vision, nausea, vomiting, diarrhea, urinary urgency or frequency. Her graft patient does not recall why he is not on anticoagulation upon review of previous notes patient was apparently critically ill hence was discharged without anticoagulation and only on aspirin. in the emergency room patient was noted to have tachycardia was started on a Cardizem drip currently at 10 mg per hour. Blood cultures were also positive with gram-positive cocci in pairs. 05/20/16 States to be feeling better States to pain in his chest associated with cough, which has been productive today. CXR today was reviewed, was concerning for interstitial edema. no fevers, chills, nausea, vomiting diarrhea reported. Objective - Vital Signs Vital signs: Vital Signs Temp 97.7 F 05/20/16 15:46 Pulse 83 05/20/16 16:23 Resp 18 05/20/16 16:23 BP 112/62 05/20/16 15:46 Pulse Ox 96 05/20/16 15:46 Intake & Output 05/19/16 05/20/16 05/20/16 18:59 06:59 18:59 Intake Total 520.087 3974.313 416 Output Total 2300 975 Balance 711.520 14.313 -559 Weight 84.7 kg Intake: IV 2100 Heparin Sodium,Porcine/ 400 D5w Pmx 25,000 unit In Dextrose/Water 1 500ml. bag @ 12 UNITS/KG/HR 19. 59 mls/hr IV .Q24H [facility] Rx #:[id number] Piperacillin-Tazobactam 3 100 .375 gm In Dextrose/Water 1 50ml.bag @ 12.5 mls/hr IVPB ONCE [facility] Rx#: [id number] Sodium Chloride 0.9% 1, 1600 000 ml @ 100 mls/hr IV . Q10H [facility] Rx#:[id number] Intake, IV Titration 391.520 214.313 Amount Diltiazem 125 mg In 105.833 Sodium Chloride 0.9% 100 ml @ 5 MG/HR 5 mls/hr IV .Q24H [facility] Rx#:[id number] Heparin Sodium,Porcine/ 285.687 214.313 D5w Pmx 25,000 unit In Dextrose/Water 1 500ml. bag @ 12 UNITS/KG/HR 19. 59 mls/hr IV .Q24H [facility] Rx #:[id number] Oral 320 416 Output: Urine 2300 975 Other: # Voids 2 1 1 # Bowel Movements 1 1 - Constitutional General appearance: Present: no acute distress - EENT Eyes: Present: PERRLA - Neck Neck: Present: normal ROM. Absent: rigidity - Respiratory Respiratory: bilateral: rales, negative: diminished, wheezing - Cardiovascular Rhythm: regular Heart sounds: normal: S1, S2 Abnormal Heart Sounds: Present: systolic murmur - Gastrointestinal General gastrointestinal: Present: normal bowel sounds, soft. Absent: organomegaly, tenderness - Neurologic Neurologic: Present: CNII-XII intact. Absent: focal deficits - Psychiatric Psychiatric: Present: A&O x's 3 - Labs CBC & Chem 7: 05/20/16 04:25 05/20/16 04:25 Labs: Abnormal Lab Results - Last 24 Hours (Table) 05/19/16 05/19/16 05/19/16 Range/Units 20:21 21:24 21:24 WBC (3.8-10.6) k/uL RBC (4.30-5.90) m/uL Hgb (13.0-17.5) gm/dL Hct (39.0-53.0) % Neutrophils # (Manual) (1.3-7.7) k/uL Monocytes # (Manual) (0-1.0) k/uL APTT 36.8 H (22.0-30.0) sec Potassium (3.5-5.1) mmol/L BUN (9-20) mg/dL Glucose (74-99) mg/dL POC Glucose (mg/dL) 349 H (75-99) mg/dL Calcium (8.4-10.2) mg/dL Troponin I 0.056 H* (0.000-0.034) ng/mL Total Protein (6.3-8.2) g/dL Albumin (3.5-5.0) g/dL 05/20/16 05/20/16 05/20/16 Range/Units 00:09 04:25 04:25 WBC 22.3 H (3.8-10.6) k/uL RBC 4.10 L (4.30-5.90) m/uL Hgb 12.5 L (13.0-17.5) gm/dL Hct 38.3 L (39.0-53.0) % Neutrophils # (Manual) 20.1 H (1.3-7.7) k/uL Monocytes # (Manual) 1.1 H (0-1.0) k/uL APTT (22.0-30.0) sec Potassium (3.5-5.1) mmol/L BUN (9-20) mg/dL Glucose (74-99) mg/dL POC Glucose (mg/dL) 251 H (75-99) mg/dL Calcium (8.4-10.2) mg/dL Troponin I 0.047 H* (0.000-0.034) ng/mL Total Protein (6.3-8.2) g/dL Albumin (3.5-5.0) g/dL 05/20/16 05/20/16 05/20/16 Range/Units 04:25 04:25 05:42 WBC (3.8-10.6) k/uL RBC (4.30-5.90) m/uL Hgb (13.0-17.5) gm/dL Hct (39.0-53.0) % Neutrophils # (Manual) (1.3-7.7) k/uL Monocytes # (Manual) (0-1.0) k/uL APTT 49.6 H (22.0-30.0) sec Potassium 3.1 L (3.5-5.1) mmol/L BUN 35 H (9-20) mg/dL Glucose 218 H (74-99) mg/dL POC Glucose (mg/dL) 210 H (75-99) mg/dL Calcium 7.9 L (8.4-10.2) mg/dL Troponin I (0.000-0.034) ng/mL Total Protein 5.3 L (6.3-8.2) g/dL Albumin 2.9 L (3.5-5.0) g/dL 05/20/16 05/20/16 Range/Units 11:57 16:57 WBC (3.8-10.6) k/uL RBC (4.30-5.90) m/uL Hgb (13.0-17.5) gm/dL Hct (39.0-53.0) % Neutrophils # (Manual) (1.3-7.7) k/uL Monocytes # (Manual) (0-1.0) k/uL APTT (22.0-30.0) sec Potassium (3.5-5.1) mmol/L BUN (9-20) mg/dL Glucose (74-99) mg/dL POC Glucose (mg/dL) 206 H 264 H (75-99) mg/dL Calcium (8.4-10.2) mg/dL Troponin I (0.000-0.034) ng/mL Total Protein (6.3-8.2) g/dL Albumin (3.5-5.0) g/dL Microbiology - Last 24 Hours (Table) 05/19/16 09:40 Gram Stain - Preliminary Sputum Sputum Culture - Preliminary Presumptive Staph aureus 05/19/16 00:21 Blood Culture Gram Stain - Preliminary Blood Blood Culture - Preliminary Streptococcus pneumoniae Assessment and Plan Plan: acute hypoxic respiratory failure secondary to multifocal pneumonia in a patient that is immunocompromised. #2 sepsis secondary to above #3 diabetes mellitus type 2 #4 hypertension #5 B-cell lymphoma #6 paroxysmal atrial fibrillation #7 sinus tachycardia multiple PACs present on admission at this time #8indeterminate troponin leak likely secondary to above #9 acute exacerbation of systolic heart failure 10. bacteremia with staph aureus. plan continue with antibiotics breathing tx steroids pulmonary hygiene strict I/O titrate o2. anticoagulation
[2016-05-20] MEDS ORDERED: INSULIN LISPRO (humaLOG) 300 UNIT/3 ML VIAL SQ ONE (18:01)
[2016-05-20 20:46] LABS: Glucose,Whole Blood 248 mg/dL (75-99)
[2016-05-20] MEDS ORDERED: INSULIN GLARGINE 100 UNIT/ML 10 ML VIAL SQ SCH (21:00)
[2016-05-20] MEDS: HEPARIN SODIUM,PORCINE 5,000 UNIT/ML 1 ML VIAL SQ SCH (21:07)
[2016-05-20] MEDS: POTASSIUM CHLORIDE ER 20 MEQ TAB.ER PO SCH (21:09)
[2016-05-21] MEDS: PIPERACILLIN-TAZOBACTAM 3.375 GM in DEXTROSE/WATER 1 50ML.BAG IVPB SCH ×3 (03:58→21:25)
[2016-05-21] MEDS: SODIUM CHLORIDE 0.9% 1,000 ML IV SCH ×3 (03:58→20:46)
[2016-05-21] MEDS: HYDROcodone/APAP 5-325MG 1 EACH TAB PO PRN (04:02)
[2016-05-21 06:02] LABS: Aty Lym Flag Marked; CH 31.3; CHCM 33.6; HCT 37.5 % (39.0-53.0); HDW 3.04; HGB 12.1 gm/dL (13.0-17.5); MCH 30.2 pg (25.0-35.0); MCHC 32.3 g/dL (31.0-37.0); MCV 93.5 fL (80.0-100.0); RBC 4.01 m/uL (4.30-5.90); RDW 15.1 % (11.5-15.5); WBC 21.7 k/uL (3.8-10.6); WBC (Perox) 23.05
[2016-05-21 06:16] LABS: Glucose,Whole Blood 202 mg/dL (75-99)
[2016-05-21 06:16] LABS: ALT 36 U/L (21-72); AST 30 U/L (17-59); Alkaline Phosphatase 75 U/L (38-126); Anion Gap 12 mmol/L; Blood Urea Nitrogen 36 mg/dL (9-20); Calcium 8.2 mg/dL (8.4-10.2); Carbon Dioxide 30 mmol/L (22-30); Chloride 98 mmol/L (98-107); Glucose 205 mg/dL (74-99); Non-African American GFR(MDRD) >60 (>60 ml/min/1.73 sqM); Potassium 3.2 mmol/L (3.5-5.1); Sodium 140 mmol/L (137-145); Total Bilirubin 0.5 mg/dL (0.2-1.3)
[2016-05-21 06:23] LABS: Add Differential Manual Differential
[2016-05-21 06:25] LABS: Nucleated Red Blood Cells 0 /100 WBC (0-0); Total Cells Counted 200
[2016-05-21 06:28] LABS: Manual Review Performed
[2016-05-21] MEDS: INSULIN LISPRO (humaLOG) 300 UNIT/3 ML VIAL SQ SCH ×7 (06:48→20:45)
[2016-05-21] MEDS: IPRATROPIUM-ALBUTEROL 3 ML NEB INHALATION SCH ×4 (08:06→20:29)
[2016-05-21] MEDS: BUDESONIDE 0.5 MG/2 ML NEBU INHALATION SCH ×2 (08:06→20:29)
[2016-05-21] MEDS: methylPREDNISolone SOD SUCCI 40 MG/ML 1 ML VIAL IV SCH ×2 (08:47→21:26)
[2016-05-21] MEDS: HEPARIN SODIUM,PORCINE 5,000 UNIT/ML 1 ML VIAL SQ SCH ×3 (08:47→23:36)
[2016-05-21] MEDS: METOPROLOL TARTRATE 25 MG TAB PO SCH (08:47)
[2016-05-21] MEDS: ASPIRIN 81 MG CHEW PO SCH (08:48)
[2016-05-21] MEDS: POTASSIUM CHLORIDE ER 20 MEQ TAB.ER PO SCH ×5 (08:48→21:27)
[2016-05-21] MEDS: FUROSEMIDE 40 MG TAB PO SCH (08:48)
[2016-05-21] MEDS ORDERED: METOPROLOL TARTRATE 25 MG TAB PO STA (09:28)
[2016-05-21 11:46] LABS: Glucose,Whole Blood 273 mg/dL (75-99)
--- NOTE | 2016-05-21 11:52 | P.PN ---
Subjective Principal diagnosis: Shortness of breath This is a 70-year-old gentleman with history of lymphoma, status post voluntary transplant, hypertension, lymphoma, history of paroxysmal atrial fibrillation, recurrent admissions for sepsis and pneumonia. Resented to the hospital again on this occasion with symptoms of progressively worsening shortness of breath. Patient also states that he has been experiencing fever and chills at home and has been coughing up pinkish colored sputum. Patient has also had recent admissions to the hospital with pneumonia requiring intubation. Echocardiogram with Doppler study was performed which revealed an ejection fraction of 40-45%. Moderate to severe mitral regurgitation with moderate tricuspid regurgitation. Blood cultures positive for gram-positive cocci in pairs. Feeling much better overall, continues to have cough. Objective - Vital Signs Vital signs: Vital Signs Temp 97.8 F 05/21/16 08:00 Pulse 80 05/21/16 11:42 Resp 20 05/21/16 08:00 BP 124/79 05/21/16 08:00 Pulse Ox 95 05/21/16 08:00 Intake & Output 05/20/16 05/21/16 05/21/16 18:59 06:59 18:59 Intake Total 596 300 240 Output Total 1375 2900 1000 Balance -779 -2600 -760 Weight 81.8 kg Intake: IV 300 Piperacillin-Tazobactam 3 50 .375 gm In Dextrose/Water 1 50ml.bag @ 12.5 mls/hr IVPB ONCE STA Rx#: [id number] Vancomycin 1,500 mg In 250 Sodium Chloride 0.9% 250 ml @ 125 mls/hr IVPB Q16H [facility] Rx#:[id number] Oral 596 240 Output: Urine 1375 2900 1000 Other: Voiding Method Toilet Toilet # Voids 1 1 1 - Exam PHYSICAL EXAMINATION: HEENT: Head is atraumatic, normocephalic. Pupils equal, round. Neck is supple. There is no elevated jugular venous pressure. HEART EXAMINATION: Heart S1, S2 normal. No murmur or gallop heard. CHEST EXAMINATION: Lungs reveal scattered rhonchi and wheezing throughout. ABDOMEN: Soft, nontender. Bowel sounds are heard. No organomegaly noted. EXTREMITIES: 2+ peripheral pulses with no evidence of peripheral edema and no calf tenderness noted. NEUROLOGIC patient is awake, alert and oriented -3. - Labs CBC & Chem 7: 05/21/16 05:43 04/15/17 05:43 Labs: Abnormal Lab Results - Last 24 Hours (Table) 05/20/16 05/20/16 05/20/16 Range/Units 11:57 16:57 17:06 WBC (3.8-10.6) k/uL RBC (4.30-5.90) m/uL Hgb (13.0-17.5) gm/dL Hct (39.0-53.0) % Neutrophils # (Manual) (1.3-7.7) k/uL Potassium 3.1 L (3.5-5.1) mmol/L BUN (9-20) mg/dL Glucose (74-99) mg/dL POC Glucose (mg/dL) 206 H 264 H (75-99) mg/dL Calcium (8.4-10.2) mg/dL Total Protein (6.3-8.2) g/dL Albumin (3.5-5.0) g/dL 05/20/16 05/21/16 05/21/16 Range/Units 20:41 05:43 05:43 WBC 21.7 H (3.8-10.6) k/uL RBC 4.01 L (4.30-5.90) m/uL Hgb 12.1 L (13.0-17.5) gm/dL Hct 37.5 L (39.0-53.0) % Neutrophils # (Manual) 20.2 H (1.3-7.7) k/uL Potassium 3.2 L (3.5-5.1) mmol/L BUN 36 H (9-20) mg/dL Glucose 205 H (74-99) mg/dL POC Glucose (mg/dL) 248 H (75-99) mg/dL Calcium 8.2 L (8.4-10.2) mg/dL Total Protein 5.0 L (6.3-8.2) g/dL Albumin 2.7 L (3.5-5.0) g/dL 05/21/16 05/21/16 Range/Units 06:14 11:41 WBC (3.8-10.6) k/uL RBC (4.30-5.90) m/uL Hgb (13.0-17.5) gm/dL Hct (39.0-53.0) % Neutrophils # (Manual) (1.3-7.7) k/uL Potassium (3.5-5.1) mmol/L BUN (9-20) mg/dL Glucose (74-99) mg/dL POC Glucose (mg/dL) 202 H 273 H (75-99) mg/dL Calcium (8.4-10.2) mg/dL Total Protein (6.3-8.2) g/dL Albumin (3.5-5.0) g/dL Microbiology - Last 24 Hours (Table) 05/19/16 09:40 Gram Stain - Final Sputum Sputum Culture - Final Methicillin resist S. aureus 05/19/16 00:21 Blood Culture Gram Stain - Final Blood Blood Culture - Final Streptococcus pneumoniae Assessment and Plan Plan: Assessment and plan #1 acute respiratory failure secondary to pneumonia #2 diabetes #3 hypertension #4 hyperlipidemia #5 paroxysmal atrial fibrillation #6 B cell lymphoma #7 sinus tachycardia with multiple PACs, no current evidence of atrial fibrillation #8 abnormal troponins, not suggestive of acute coronary syndrome. #9 mild congestive cardiac failure, likely diastolic in nature. Patient's most recent echocardiogram with Doppler study was performed in April 2015 which revealed a normal ejection fraction at that time. Plan Cardiology's perspective, we'll recommend to continue the patient on his current medications. We will follow him along with you now on an as-needed basis only, please don't hesitate to call with any questions. DNP note has been reviewed, I agree with a documented findings and plan of care. Patient was seen and examined.
[2016-05-21 12:38] LABS: Glucose,Whole Blood 224 mg/dL (75-99)
[2016-05-21] MEDS ORDERED: FUROSEMIDE 10 MG/ML 4 ML VIAL IV STA (12:39)
[2016-05-21] MEDS ORDERED: VANCOMYCIN TROUGH DUE 1 EACH MISC MISCELLANE ONE (15:30)
--- NOTE | 2016-05-21 16:09 | P.PN ---
Subjective This is a 70-year-old male who is being evaluated and examined today on the sixth floor. This patient came into the emergency room for evaluation of shortness of breath and resting chest pain. CT of the abdomen and pelvis revealed wall thickening of the base of the cecum with mild surrounding that stranding which may represent colitis or possible inflammatory process, diverticulosis without evidence of diverticulitis, and increased perinephric stranding bilaterally. Patient also had a CTA which revealed no pulmonary embolus that could be identified, multifocal pneumonia, trace left pleural effusion and small right pleural effusion, probable mildly prominent subcarnial lymph nodes that are nonspecific. After evaluation from the emergency room the patient was admitted with pneumonia, sepsis, non-STEMI, proximal atrial fibrillation, and fever. This patient is well-known to our service. This patient has had recent hospitalizations regarding respiratory failure. Upon examination the patient is resting up in bed on 6 L of oxygen. Patient continues to complain of a productive cough and has difficulty bringing up any secretions. Chest x-ray on 05-20-16 reveals fluid volume overload or interstitial edema, pulmonary venous hypertension, correlate to exclude congestive heart failure, pneumonia cannot be excluded and effusions cannot be excluded. Sputum cultures positive for MRSA patient already on vancomycin. Incentive spirometer encouraged. Objective - Vital Signs Vital signs: Vital Signs Temp 98.3 F 05/21/16 12:00 Pulse 92 05/21/16 12:00 Resp 20 05/21/16 12:00 BP 118/47 05/21/16 12:00 Pulse Ox 94 L 05/21/16 12:00 Intake & Output 05/20/16 05/21/16 05/21/16 18:59 06:59 18:59 Intake Total 596 300 360 Output Total 1375 2900 1000 Balance -183 -2015 -640 Weight 81.8 kg Intake: IV 300 Piperacillin-Tazobactam 3 50 .375 gm In Dextrose/Water 1 50ml.bag @ 12.5 mls/hr IVPB ONCE STA Rx#: [id number] Vancomycin 1,500 mg In 250 Sodium Chloride 0.9% 250 ml @ 125 mls/hr IVPB Q16H [facility] Rx#:[id number] Oral 596 360 Output: Urine 1375 2900 1000 Other: Voiding Method Toilet Toilet # Voids 1 1 1 - Exam GENERAL EXAM: Alert, active, comfortable in no apparent distress. HEAD: Normocephalic. EYES: Normal reaction of pupils, equal size. NOSE: Clear with pink turbinates. THROAT: No erythema or exudates. NECK: No masses, no JVD. CHEST: No chest wall deformity. LUNGS: Equal air entry which is coarse, some scattered rhonchi noted bases diminished CVS: S1 and S2 normal with no audible mumurs, ABDOMEN: No hepatosplenomegaly, normal bowel sounds, no guarding or rigidity. EXTREMITIES: No edema noted, pedal pulses palpable. SKIN: No rashes CENTRAL NERVOUS SYSTEM: No focal deficits, tone is normal in all 4 extremities. - Labs CBC & Chem 7: 05/21/16 05:43 05/21/16 05:43 Labs: Abnormal Lab Results - Last 24 Hours (Table) 05/20/16 05/20/16 05/20/16 Range/Units 16:57 17:06 20:41 WBC (3.8-10.6) k/uL RBC (4.30-5.90) m/uL Hgb (13.0-17.5) gm/dL Hct (39.0-53.0) % Neutrophils # (Manual) (1.3-7.7) k/uL Potassium 3.1 L (3.5-5.1) mmol/L BUN (9-20) mg/dL Glucose (74-99) mg/dL POC Glucose (mg/dL) 264 H 248 H (75-99) mg/dL Calcium (8.4-10.2) mg/dL Total Protein (6.3-8.2) g/dL Albumin (3.5-5.0) g/dL 05/21/16 05/21/16 05/21/16 Range/Units 05:43 05:43 06:14 WBC 21.7 H (3.8-10.6) k/uL RBC 4.01 L (4.30-5.90) m/uL Hgb 12.1 L (13.0-17.5) gm/dL Hct 37.5 L (39.0-53.0) % Neutrophils # (Manual) 20.2 H (1.3-7.7) k/uL Potassium 3.2 L (3.5-5.1) mmol/L BUN 36 H (9-20) mg/dL Glucose 205 H (74-99) mg/dL POC Glucose (mg/dL) 202 H (75-99) mg/dL Calcium 8.2 L (8.4-10.2) mg/dL Total Protein 5.0 L (6.3-8.2) g/dL Albumin 2.7 L (3.5-5.0) g/dL 05/21/16 05/21/16 Range/Units 11:41 12:35 WBC (3.8-10.6) k/uL RBC (4.30-5.90) m/uL Hgb (13.0-17.5) gm/dL Hct (39.0-53.0) % Neutrophils # (Manual) (1.3-7.7) k/uL Potassium (3.5-5.1) mmol/L BUN (9-20) mg/dL Glucose (74-99) mg/dL POC Glucose (mg/dL) 273 H 224 H (75-99) mg/dL Calcium (8.4-10.2) mg/dL Total Protein (6.3-8.2) g/dL Albumin (3.5-5.0) g/dL Microbiology - Last 24 Hours (Table) 05/19/16 09:40 Gram Stain - Final Sputum Sputum Culture - Final Methicillin resist S. aureus 05/19/16 00:21 Blood Culture Gram Stain - Final Blood Blood Culture - Final Streptococcus pneumoniae Assessment and Plan Plan: Assessment Community-acquired pneumonia with sepsis Acute respiratory failure secondary to pneumonia Paroxysmal Atrial fibrillation Indeterminate, Elevated troponins, cardiology following Congestive heart failure, likely diastolic B-cell lymphoma Diabetes mellitus Hypertension Plan Medications have been reviewed and will be continued as ordered. We will also continue the patient on steroids and continue to monitor blood sugars. Incentive spirometer has been initiated and will be encouraged. We will continue to monitor labs/results and adjust treatment as necessary. I performed an examination of the patient and discussed their management with the nurse practitioner. I have reviewed the nurse practitioner's note and agree with the documented findings and plan of care.
[2016-05-21 16:48] LABS: Glucose,Whole Blood 136 mg/dL (75-99)
--- NOTE | 2016-05-21 16:53 | P.PN ---
Subjective 70-year-old gentleman with history of B cell lymphoma currently in remission after stem cell transportation and chemotherapy with history of paroxysmal atrial fibrillation comes in the hospital with the generalized weakness and difficulty breathing for the last few days prior to admission. Patient states that he has had progressive worsening of dyspnea states to have a cough that is productive in nature. Patient states his cough has been producing pinkish red fluid. Patient states to have had associated chills and mild episodes of fevers over the last few days. Patient has had multiple episodes of pneumonia including influenza pneumonitis which required endotracheal intubation and support within the last year. Currently patient underwent a computed tomography scan of the chest which shows multifocal pneumonia however there is significant fluid noted in the lobar creases. states to be feeling slightly improved denies having headaches, blurry vision, nausea, vomiting, diarrhea, urinary urgency or frequency. Her graft patient does not recall why he is not on anticoagulation upon review of previous notes patient was apparently critically ill hence was discharged without anticoagulation and only on aspirin. in the emergency room patient was noted to have tachycardia was started on a Cardizem drip currently at 10 mg per hour. Blood cultures were also positive with gram-positive cocci in pairs. 05/20/16 States to be feeling better States to pain in his chest associated with cough, which has been productive today. CXR today was reviewed, was concerning for interstitial edema. no fevers, chills, nausea, vomiting diarrhea reported. 05/21/16 continues to be on 5 l o2 has cough non productive in nature No fevers, chills, n/v, diarrhea reported. Objective - Vital Signs Vital signs: Vital Signs Temp 98.3 F 05/21/16 12:00 Pulse 92 05/21/16 12:00 Resp 20 05/21/16 12:00 BP 118/47 05/21/16 12:00 Pulse Ox 94 L 05/21/16 12:00 Intake & Output 05/20/16 05/21/16 05/21/16 18:59 06:59 18:59 Intake Total 596 300 360 Output Total 1375 2900 1600 Balance -958 -1832 -1075 Weight 81.8 kg Intake: IV 300 Piperacillin-Tazobactam 3 50 .375 gm In Dextrose/Water 1 50ml.bag @ 12.5 mls/hr IVPB ONCE STA Rx#: [id number] Vancomycin 1,500 mg In 250 Sodium Chloride 0.9% 250 ml @ 125 mls/hr IVPB Q16H [facility] Rx#:[id number] Oral 596 360 Output: Urine 1375 2900 1600 Other: Voiding Method Toilet Toilet # Voids 1 1 1 - Constitutional General appearance: Present: no acute distress - EENT Eyes: Present: PERRLA - Neck Neck: Present: normal ROM. Absent: rigidity - Respiratory Respiratory: bilateral: rales, negative: rhonchi, wheezing - Cardiovascular Rhythm: regular Heart sounds: normal: S1, S2 Abnormal Heart Sounds: Present: systolic murmur - Gastrointestinal General gastrointestinal: Present: soft. Absent: organomegaly, tenderness - Neurologic Neurologic: Present: CNII-XII intact. Absent: focal deficits - Musculoskeletal Musculoskeletal: Present: gait normal - Psychiatric Psychiatric: Present: A&O x's 3 - Labs CBC & Chem 7: 05/21/16 05:43 05/21/16 05:43 Labs: Abnormal Lab Results - Last 24 Hours (Table) 05/20/16 05/20/16 05/20/16 Range/Units 16:57 17:06 20:41 WBC (3.8-10.6) k/uL RBC (4.30-5.90) m/uL Hgb (13.0-17.5) gm/dL Hct (39.0-53.0) % Neutrophils # (Manual) (1.3-7.7) k/uL Potassium 3.1 L (3.5-5.1) mmol/L BUN (9-20) mg/dL Glucose (74-99) mg/dL POC Glucose (mg/dL) 264 H 248 H (75-99) mg/dL Calcium (8.4-10.2) mg/dL Total Protein (6.3-8.2) g/dL Albumin (3.5-5.0) g/dL 05/21/16 05/21/16 05/21/16 Range/Units 05:43 05:43 06:14 WBC 21.7 H (3.8-10.6) k/uL RBC 4.01 L (4.30-5.90) m/uL Hgb 12.1 L (13.0-17.5) gm/dL Hct 37.5 L (39.0-53.0) % Neutrophils # (Manual) 20.2 H (1.3-7.7) k/uL Potassium 3.2 L (3.5-5.1) mmol/L BUN 36 H (9-20) mg/dL Glucose 205 H (74-99) mg/dL POC Glucose (mg/dL) 202 H (75-99) mg/dL Calcium 8.2 L (8.4-10.2) mg/dL Total Protein 5.0 L (6.3-8.2) g/dL Albumin 2.7 L (3.5-5.0) g/dL 05/21/16 05/21/16 05/21/16 Range/Units 11:41 12:35 16:44 WBC (3.8-10.6) k/uL RBC (4.30-5.90) m/uL Hgb (13.0-17.5) gm/dL Hct (39.0-53.0) % Neutrophils # (Manual) (1.3-7.7) k/uL Potassium (3.5-5.1) mmol/L BUN (9-20) mg/dL Glucose (74-99) mg/dL POC Glucose (mg/dL) 273 H 224 H 136 H (75-99) mg/dL Calcium (8.4-10.2) mg/dL Total Protein (6.3-8.2) g/dL Albumin (3.5-5.0) g/dL Microbiology - Last 24 Hours (Table) 05/19/16 09:40 Gram Stain - Final Sputum Sputum Culture - Final Methicillin resist S. aureus 05/19/16 00:21 Blood Culture Gram Stain - Final Blood Blood Culture - Final Streptococcus pneumoniae Assessment and Plan Plan: acute hypoxic respiratory failure secondary to multifocal pneumonia sec to MRSA #2 sepsis secondary to above #3 diabetes mellitus type 2 #4 hypertension #5 B-cell lymphoma #6 paroxysmal atrial fibrillation #7 sinus tachycardia multiple PACs present on admission at this time #8indeterminate troponin leak likely secondary to above #9 acute exacerbation of systolic heart failure 10. bacteremia with staph aureus. plan continue with antibiotics additional dose of iv lasix 40mg breathing tx steroids pulmonary hygiene strict I/O titrate o2. anticoagulation
[2016-05-21] MEDS ORDERED: INSULIN GLARGINE 100 UNIT/ML 10 ML VIAL SQ SCH (17:00)
[2016-05-21] MEDS: VANCOMYCIN 1,500 MG in SODIUM CHLORIDE 0.9% 250 ML IVPB SCH ×2 (17:03→17:20)
[2016-05-21 20:40] LABS: Glucose,Whole Blood 88 mg/dL (75-99)
[2016-05-21] MEDS: METOPROLOL TARTRATE 50 MG TAB PO SCH (21:26)
[2016-05-22] MEDS: INSULIN GLARGINE 100 UNIT/ML 10 ML VIAL SQ SCH (00:48)
[2016-05-22 03:14] LABS: Glucose,Whole Blood 184 mg/dL (75-99)
[2016-05-22] MEDS: PIPERACILLIN-TAZOBACTAM 3.375 GM in DEXTROSE/WATER 1 50ML.BAG IVPB SCH ×2 (04:27→11:46)
[2016-05-22 05:01] LABS: Aty Lym Flag Marked; CHCM 33.9; HCT 39.2 % (39.0-53.0); HDW 3.17; HGB 13.1 gm/dL (13.0-17.5); MCH 30.7 pg (25.0-35.0); MCHC 33.5 g/dL (31.0-37.0); MCV 91.8 fL (80.0-100.0); Mean Platelet Volume 6.9; RBC 4.27 m/uL (4.30-5.90); RDW 14.7 % (11.5-15.5); WBC (Perox) 31.86
[2016-05-22 05:15] LABS: ALT 49 U/L (21-72); AST 33 U/L (17-59); Alkaline Phosphatase 66 U/L (38-126); Anion Gap 7 mmol/L; Blood Urea Nitrogen 35 mg/dL (9-20); Calcium 8.1 mg/dL (8.4-10.2); Carbon Dioxide 32 mmol/L (22-30); Chloride 97 mmol/L (98-107); Glucose 185 mg/dL (74-99); Non-African American GFR(MDRD) >60 (>60 ml/min/1.73 sqM); Potassium 3.8 mmol/L (3.5-5.1); Sodium 136 mmol/L (137-145); Total Bilirubin 0.5 mg/dL (0.2-1.3); Total Protein 4.7 g/dL (6.3-8.2)
[2016-05-22 05:31] LABS: Add Differential Manual Differential
[2016-05-22 05:33] LABS: Manual Review Performed; Nucleated Red Blood Cells 0 /100 WBC (0-0); Total Cells Counted 100
[2016-05-22 05:34] LABS: Large Platelets Present; Reactive Lymphocytes Present
[2016-05-22] MEDS: VANCOMYCIN 1,500 MG in SODIUM CHLORIDE 0.9% 250 ML IVPB SCH ×2 (06:10→17:26)
[2016-05-22 06:11] LABS: Glucose,Whole Blood 191 mg/dL (75-99)
[2016-05-22] MEDS: INSULIN LISPRO (humaLOG) 300 UNIT/3 ML VIAL SQ SCH ×6 (07:02→17:27)
[2016-05-22] MEDS: IPRATROPIUM-ALBUTEROL 3 ML NEB INHALATION SCH ×4 (08:10→20:08)
[2016-05-22] MEDS: BUDESONIDE 0.5 MG/2 ML NEBU INHALATION SCH ×2 (08:11→20:08)
[2016-05-22] MEDS: FUROSEMIDE 40 MG TAB PO SCH (08:32)
[2016-05-22] MEDS: SODIUM CHLORIDE 0.9% 1,000 ML IV SCH ×2 (08:34→15:35)
[2016-05-22] MEDS: ASPIRIN 81 MG CHEW PO SCH (08:34)
[2016-05-22] MEDS: methylPREDNISolone SOD SUCCI 40 MG/ML 1 ML VIAL IV SCH ×2 (08:35→20:07)
[2016-05-22] MEDS: METOPROLOL TARTRATE 50 MG TAB PO SCH ×2 (08:35→20:07)
[2016-05-22] MEDS: HEPARIN SODIUM,PORCINE 5,000 UNIT/ML 1 ML VIAL SQ SCH ×2 (08:35→15:35)
[2016-05-22] MEDS: POTASSIUM CHLORIDE ER 20 MEQ TAB.ER PO SCH ×2 (08:36→20:07)
[2016-05-22] MEDS ORDERED: FUROSEMIDE 10 MG/ML 4 ML VIAL IV SCH (09:00)
--- NOTE | 2016-05-22 10:18 | XR ---
EXAMINATION TYPE: XR chest 1V portable DATE OF EXAM: 05/22/2016 10:07 AM COMPARISON: Chest x-ray 20 May 2016 HISTORY: Difficulty breathing TECHNIQUE: Single frontal view of the chest is obtained. FINDINGS: There is improvement in aeration of the lungs, the interstitium is less conspicuous. Heart remains enlarged. Improved aeration noted. IMPRESSION: Improvement in volume status.
[2016-05-22 11:25] LABS: Glucose,Whole Blood 203 mg/dL (75-99)
--- NOTE | 2016-05-22 13:34 | P.PN ---
Subjective This is a 70-year-old male who is being evaluated and examined today on the sixth floor. This patient came into the emergency room for evaluation of shortness of breath and resting chest pain. CT of the abdomen and pelvis revealed wall thickening of the base of the cecum with mild surrounding that stranding which may represent colitis or possible inflammatory process, diverticulosis without evidence of diverticulitis, and increased perinephric stranding bilaterally. Patient also had a CTA which revealed no pulmonary embolus that could be identified, multifocal pneumonia, trace left pleural effusion and small right pleural effusion, probable mildly prominent subcarnial lymph nodes that are nonspecific. After evaluation from the emergency room the patient was admitted with pneumonia, sepsis, non-STEMI, proximal atrial fibrillation, and fever. This patient is well-known to our service. This patient has had recent hospitalizations regarding respiratory failure. Upon examination the patient is resting up in bed on 6 L of oxygen. Patient continues to complain of a productive cough and has difficulty bringing up any secretions. Chest x-ray on 05-20-16 reveals fluid volume overload or interstitial edema, pulmonary venous hypertension, correlate to exclude congestive heart failure, pneumonia cannot be excluded and effusions cannot be excluded. Sputum cultures positive for MRSA patient already on vancomycin. Incentive spirometer encouraged. Patient overall feels very rundown today. It is noted that his white count went up today. The patient is requesting to have infectious disease back on consult as they were previously treating him at his last admission area. Objective - Vital Signs Vital signs: Vital Signs Temp 97.6 F 05/22/16 08:00 Pulse 88 05/22/16 12:11 Resp 18 05/22/16 08:00 BP 102/57 05/22/16 08:00 Pulse Ox 95 05/22/16 08:00 Intake & Output 05/21/16 05/22/16 05/22/16 18:59 06:59 18:59 Intake Total 540 1050 180 Output Total 1600 300 500 Balance -1060 750 -320 Weight 82.1 kg Intake: IV 1050 Piperacillin-Tazobactam 3 50 .375 gm In Dextrose/Water 1 50ml.bag @ 12.5 mls/hr IVPB ONCE STA Rx#: [id number] Sodium Chloride 0.9% 1, 1000 000 ml @ 100 mls/hr IV . Q10H [facility] Rx#:[id number] Oral 540 180 Output: Urine 1600 300 500 Other: Voiding Method Toilet Toilet Toilet # Voids 1 0 # Bowel Movements 0 - Exam GENERAL EXAM: Alert, active, comfortable in no apparent distress. HEAD: Normocephalic. EYES: Normal reaction of pupils, equal size. NOSE: Clear with pink turbinates. THROAT: No erythema or exudates. NECK: No masses, no JVD. CHEST: No chest wall deformity. LUNGS: Equal air entry which is coarse, some scattered rhonchi and wheezes noted bases diminished CVS: S1 and S2 normal with no audible mumurs, ABDOMEN: No hepatosplenomegaly, normal bowel sounds, no guarding or rigidity. EXTREMITIES: No edema noted, pedal pulses palpable. SKIN: No rashes CENTRAL NERVOUS SYSTEM: No focal deficits, tone is normal in all 4 extremities. - Labs CBC & Chem 7: 05/22/16 04:50 05/22/16 04:50 Labs: Abnormal Lab Results - Last 24 Hours (Table) 05/21/16 05/22/16 05/22/16 Range/Units 16:44 03:10 04:50 WBC 29.9 H* (3.8-10.6) k/uL RBC 4.27 L (4.30-5.90) m/uL Plt Count 484 H (150-450) k/uL Neutrophils # (Manual) 27.8 H (1.3-7.7) k/uL Sodium (137-145) mmol/L Chloride (98-107) mmol/L Carbon Dioxide (22-30) mmol/L BUN (9-20) mg/dL Glucose (74-99) mg/dL POC Glucose (mg/dL) 136 H 184 H (75-99) mg/dL Calcium (8.4-10.2) mg/dL Total Protein (6.3-8.2) g/dL Albumin (3.5-5.0) g/dL 05/22/16 05/22/16 05/22/16 Range/Units 04:50 06:09 11:20 WBC (3.8-10.6) k/uL RBC (4.30-5.90) m/uL Plt Count (150-450) k/uL Neutrophils # (Manual) (1.3-7.7) k/uL Sodium 136 L (137-145) mmol/L Chloride 97 L (98-107) mmol/L Carbon Dioxide 32 H (22-30) mmol/L BUN 35 H (9-20) mg/dL Glucose 185 H (74-99) mg/dL POC Glucose (mg/dL) 191 H 203 H (75-99) mg/dL Calcium 8.1 L (8.4-10.2) mg/dL Total Protein 4.7 L (6.3-8.2) g/dL Albumin 2.6 L (3.5-5.0) g/dL Assessment and Plan Plan: Assessment Community-acquired pneumonia with sepsis Acute respiratory failure secondary to pneumonia Paroxysmal Atrial fibrillation Indeterminate, Elevated troponins, cardiology following Congestive heart failure, likely diastolic B-cell lymphoma Diabetes mellitus Hypertension Plan Medications have been reviewed and will be continued as ordered. We will also continue the patient on steroids and continue to monitor blood sugars. Incentive spirometer has been initiated and will be encouraged. Patient requests infectious disease consult as he has been previously treated by Dr. Mcgraw. We will continue to monitor labs/results and adjust treatment as necessary. I performed an examination of the patient and discussed their management with the nurse practitioner. I have reviewed the nurse practitioner's note and agree with the documented findings and plan of care.
[2016-05-22] MEDS ORDERED: methylPREDNISolone SOD SUCCI 125 MG/2 ML VIAL IV STA (15:33)
--- NOTE | 2016-05-22 15:39 | P.PN ---
Subjective 70-year-old gentleman with history of B cell lymphoma currently in remission after stem cell transportation and chemotherapy with history of paroxysmal atrial fibrillation comes in the hospital with the generalized weakness and difficulty breathing for the last few days prior to admission. Patient states that he has had progressive worsening of dyspnea states to have a cough that is productive in nature. Patient states his cough has been producing pinkish red fluid. Patient states to have had associated chills and mild episodes of fevers over the last few days. Patient has had multiple episodes of pneumonia including influenza pneumonitis which required endotracheal intubation and support within the last year. Currently patient underwent a computed tomography scan of the chest which shows multifocal pneumonia however there is significant fluid noted in the lobar creases. states to be feeling slightly improved denies having headaches, blurry vision, nausea, vomiting, diarrhea, urinary urgency or frequency. Her graft patient does not recall why he is not on anticoagulation upon review of previous notes patient was apparently critically ill hence was discharged without anticoagulation and only on aspirin. in the emergency room patient was noted to have tachycardia was started on a Cardizem drip currently at 10 mg per hour. Blood cultures were also positive with gram-positive cocci in pairs. 05/20/16 States to be feeling better States to pain in his chest associated with cough, which has been productive today. CXR today was reviewed, was concerning for interstitial edema. no fevers, chills, nausea, vomiting diarrhea reported. 05/21/16 continues to be on 5 l o2 has cough non productive in nature No fevers, chills, n/v, diarrhea reported. 05/22/16 States to have chest pain on cough. on 5l. No fevers, chills, nausea, vomiting or diarrhea reported. Objective - Vital Signs Vital signs: Vital Signs Temp 97.3 F L 05/22/16 12:00 Pulse 88 05/22/16 12:11 Resp 18 05/22/16 12:00 BP 115/74 05/22/16 12:00 Pulse Ox 95 05/22/16 12:00 Intake & Output 05/21/16 05/22/16 05/22/16 18:59 06:59 18:59 Intake Total 540 1050 300 Output Total 1600 300 900 Balance -1060 750 -600 Weight 82.1 kg Intake: IV 1050 Piperacillin-Tazobactam 3 50 .375 gm In Dextrose/Water 1 50ml.bag @ 12.5 mls/hr IVPB ONCE STA Rx#: [id number] Sodium Chloride 0.9% 1, 1000 000 ml @ 100 mls/hr IV . Q10H [facility] Rx#:[id number] Oral 540 300 Output: Urine 1600 300 900 Other: Voiding Method Toilet Toilet Toilet # Voids 1 0 # Bowel Movements 0 - Constitutional General appearance: Present: no acute distress - EENT Eyes: Present: PERRLA - Respiratory Respiratory: bilateral: diminished, rales, negative: rhonchi, wheezing - Cardiovascular Rhythm: regular Heart sounds: normal: S1, S2 Abnormal Heart Sounds: Absent: systolic murmur - Gastrointestinal General gastrointestinal: Present: normal bowel sounds, soft. Absent: organomegaly - Neurologic Neurologic: Present: CNII-XII intact. Absent: focal deficits - Musculoskeletal Musculoskeletal: Present: gait normal, generalized weakness - Psychiatric Psychiatric: Present: A&O x's 3, appropriate affect - Labs CBC & Chem 7: 05/22/16 04:50 05/22/16 04:50 Labs: Abnormal Lab Results - Last 24 Hours (Table) 05/21/16 05/22/16 05/22/16 Range/Units 16:44 03:10 04:50 WBC 29.9 H* (3.8-10.6) k/uL RBC 4.27 L (4.30-5.90) m/uL Plt Count 484 H (150-450) k/uL Neutrophils # (Manual) 27.8 H (1.3-7.7) k/uL Sodium (137-145) mmol/L Chloride (98-107) mmol/L Carbon Dioxide (22-30) mmol/L BUN (9-20) mg/dL Glucose (74-99) mg/dL POC Glucose (mg/dL) 136 H 184 H (75-99) mg/dL Calcium (8.4-10.2) mg/dL Total Protein (6.3-8.2) g/dL Albumin (3.5-5.0) g/dL 05/22/16 05/22/16 05/22/16 Range/Units 04:50 06:09 11:20 WBC (3.8-10.6) k/uL RBC (4.30-5.90) m/uL Plt Count (150-450) k/uL Neutrophils # (Manual) (1.3-7.7) k/uL Sodium 136 L (137-145) mmol/L Chloride 97 L (98-107) mmol/L Carbon Dioxide 32 H (22-30) mmol/L BUN 35 H (9-20) mg/dL Glucose 185 H (74-99) mg/dL POC Glucose (mg/dL) 191 H 203 H (75-99) mg/dL Calcium 8.1 L (8.4-10.2) mg/dL Total Protein 4.7 L (6.3-8.2) g/dL Albumin 2.6 L (3.5-5.0) g/dL Assessment and Plan Plan: acute hypoxic respiratory failure secondary to multifocal pneumonia sec to MRSA #2 sepsis secondary to above #3 diabetes mellitus type 2 #4 hypertension #5 B-cell lymphoma #6 paroxysmal atrial fibrillation #7 sinus tachycardia multiple PACs present on admission at this time #8indeterminate troponin leak likely secondary to above #9 acute exacerbation of systolic and diastolic heart failure, ef 40-45% 10. bacteremia with staph aureus. plan continue with antibiotics increase lasix 40mg bid cxr improving. breathing tx steroids pulmonary hygiene strict I/O titrate o2. will need to discuss anticoagulation
[2016-05-22 16:48] LABS: Glucose,Whole Blood 154 mg/dL (75-99)
[2016-05-22] MEDS: cefTRIAXone 2,000 MG in SODIUM CHLORIDE 0.9% 100 ML IVPB SCH (20:05)
[2016-05-22] MEDS: FUROSEMIDE 10 MG/ML 4 ML VIAL IV SCH (20:07)
[2016-05-22 20:34] LABS: Glucose,Whole Blood 160 mg/dL (75-99)
[2016-05-23] MEDS: HEPARIN SODIUM,PORCINE 5,000 UNIT/ML 1 ML VIAL SQ SCH ×4 (00:02→22:58)
[2016-05-23] MEDS: INSULIN GLARGINE 100 UNIT/ML 10 ML VIAL SQ SCH ×2 (00:02→22:06)
[2016-05-23] MEDS: SODIUM CHLORIDE 0.9% 1,000 ML IV SCH ×2 (04:14→15:59)
[2016-05-23 06:21] LABS: Glucose,Whole Blood 188 mg/dL (75-99)
[2016-05-23 06:22] LABS: Aty Lym Flag Marked; CH 30.9; CHCM 33.5; HCT 41.6 % (39.0-53.0); HDW 3.07; HGB 13.7 gm/dL (13.0-17.5); MCH 30.6 pg (25.0-35.0); MCV 92.6 fL (80.0-100.0); Mean Platelet Volume 7.1; RBC 4.49 m/uL (4.30-5.90); RDW 14.9 % (11.5-15.5); WBC (Perox) 35.91
[2016-05-23 06:30] LABS: WBC 33.8 k/uL (3.8-10.6)
[2016-05-23 06:38] LABS: ALT 39 U/L (21-72); AST 23 U/L (17-59); Alkaline Phosphatase 74 U/L (38-126); Anion Gap 9 mmol/L; Blood Urea Nitrogen 41 mg/dL (9-20); Calcium 8.4 mg/dL (8.4-10.2); Carbon Dioxide 31 mmol/L (22-30); Chloride 97 mmol/L (98-107); Glucose 213 mg/dL (74-99); Magnesium 2.2 mg/dL (1.6-2.3); Non-African American GFR(MDRD) >60 (>60 ml/min/1.73 sqM); Potassium 3.9 mmol/L (3.5-5.1); Sodium 137 mmol/L (137-145); Total Bilirubin 0.5 mg/dL (0.2-1.3)
[2016-05-23 06:42] LABS: Add Differential Manual Differential
[2016-05-23 06:43] LABS: Nucleated Red Blood Cells 0 /100 WBC (0-0); Total Cells Counted 100
[2016-05-23 06:44] LABS: Manual Review Performed
[2016-05-23] MEDS: VANCOMYCIN 1,500 MG in SODIUM CHLORIDE 0.9% 250 ML IVPB SCH ×2 (06:52→18:01)
[2016-05-23] MEDS: INSULIN LISPRO (humaLOG) 300 UNIT/3 ML VIAL SQ SCH ×8 (07:17→22:07)
[2016-05-23 07:31] LABS: WBC 29.9 k/uL (3.8-10.6)
[2016-05-23] MEDS: IPRATROPIUM-ALBUTEROL 3 ML NEB INHALATION SCH ×4 (07:53→20:19)
[2016-05-23] MEDS: BUDESONIDE 0.5 MG/2 ML NEBU INHALATION SCH ×2 (07:53→20:19)
[2016-05-23] MEDS: methylPREDNISolone SOD SUCCI 40 MG/ML 1 ML VIAL IV SCH ×2 (08:15→22:08)
[2016-05-23] MEDS: POTASSIUM CHLORIDE ER 20 MEQ TAB.ER PO SCH ×2 (08:15→22:08)
[2016-05-23] MEDS: cefTRIAXone 2,000 MG in SODIUM CHLORIDE 0.9% 100 ML IVPB SCH (08:16)
[2016-05-23] MEDS: ASPIRIN 81 MG CHEW PO SCH (08:16)
[2016-05-23] MEDS: METOPROLOL TARTRATE 50 MG TAB PO SCH ×2 (08:16→22:08)
[2016-05-23] MEDS: FUROSEMIDE 10 MG/ML 4 ML VIAL IV SCH (08:17)
--- NOTE | 2016-05-23 11:10 | CONS ---
DATE OF CONSULTATION: 05/22/2016 REASON FOR CONSULTATION: Pneumonia and bacteremia. HISTORY OF PRESENT ILLNESS: The patient is a 70-year-old male, with past medical history significant for B-cell lymphoma after stem cell transplant and chemotherapy. The patient presented to the [facility] ER on 05/19/2016 with chief complaint of generalized weakness and difficulty breathing. Symptoms have been going on for a few days prior to presentation to the hospital with no significant URI symptoms. The patient did have a cough productive of some yellowish to pinkish sputum but no andrea hemoptysis and also complaining of some chest pain. With these symptoms the patient was evaluated by the ER physician. The patient did have CT angiogram that was evidence of multifocal pneumonia. The patient has been treated with the Zosyn and vancomycin with blood cultures now positive for strep pneumo and sputum showing methicillin-resistant Staphylococcus aureus. ID was consulted for further recommendation regarding antibiotic therapy. Patient demonstrated he is not feeling as well as he was feeling yesterday mostly with shortness of breath and cough but no further chest pain, the patient currently denies any nausea or vomiting. No abdominal pain and no diarrhea. REVIEW OF SYSTEMS: CONSTITUTIONAL: Positive for weakness along with fever. EYES: No complaint. HEENT: No complaint. RESPIRATORY: As per HPI. CARDIOVASCULAR: As per HPI. GENITOURINARY: No complaint. RESPIRATORY: No complaint. MUSCULOSKELETAL: No complaint. INTEGUMENTARY: No complaint. PSYCHOLOGICAL: No complaint. ENDOCRINE: No complaint. NEUROLOGICAL: No complaint. PAST MEDICAL HISTORY: Diabetes mellitus, hypertension, pneumonia, B-cell lymphoma, previous history of MRSA infection. PAST SURGICAL HISTORY: Cholecystectomy, hernia repair. SOCIAL HISTORY: No history of smoking, drinking or drug use. FAMILY HISTORY: Mother with history of hypothyroidism. ALLERGIES: No known drug allergies. Medications currently include the patient is on: 1. [place]. 2. DuoNeb. 3. Aspirin. 4. Pulmicort. 5. Zosyn. 6. Vancomycin. 7. Lantus. 8. Humalog. 9. Solu-Medrol. 10. Lopressor. 11. K-Dur. 12. Vancomycin. On examination, blood pressure is 124/68 with a pulse of 80, temperature 97.8. He is 97% on 6 liters nasal cannula. General description is an elderly male, lying in bed in no distress. HEENT examination shows pallor. There is no scleral icterus. Oral mucous membrane is dry. NECK: Trachea central, no thyromegaly. LUNGS: Unlabored breathing. Some coarse breath sounds at the base. No wheeze. HEART: S1, S2. Regular rate and rhythm. ABDOMEN: soft, no tenderness. EXTREMITIES: No edema of feet. LABS: Hemoglobin is 13.1, white count 29.9 with a BUN of 35, creatinine is 1. Blood cultures with Strep pneumo. Sputum is showing MRSA. Chest x-ray did show some infiltrate. CT angiogram was evidence of multifocal pneumonia. Diagnostic impression and plan: The patient admitted to hospital with sepsis and the patient did have a fever of 100.9. Did have an elevated white count with significant infiltrate on the CT angiogram suggestive of pneumonia, likely source of infection. However, the sputum and Methicillin-resistant Staph aureus with blood culture is Strep more likely with Strep pneumoniae. The patient did have previous history of positive sputum Methicillin-resistant Staph aureus, the question of possible colonization though underlying infection cannot be entirely excluded. PLAN: 1. Recommend directing the therapy specifically towards Staph pneumo plus coverage for methicillin-resistant Staphylococcus aureus as no gram negative has been grown, we will discontinue the Zosyn. 2. Add Rocephin 2 gm daily, continue patient on vancomycin, pharmacy to dose. 3. Repeat blood cultures to make sure no evidence of any persistent bacteremia. 4. Depending upon the clinical response in the next 24 to 48 hours, recommend discharge antibiotic which could be more likely oral Zyvox if there is insurance coverage. Thank you for this consultation. We will follow this patient along with you. RITO
[2016-05-23 11:49] LABS: Glucose,Whole Blood 243 mg/dL (75-99)
--- NOTE | 2016-05-23 14:00 | XR ---
EXAMINATION TYPE: XR abdomen 2V DATE OF EXAM: 05/23/2016 1:32 PM CLINICAL DATA: 70 year-old male distention and tenderness, [facility] COMPARISON: 04/22/2015 FINDINGS: Reticular opacities at the lung bases, possible trace effusions. No evidence for free intraperitoneal air. No dilated small bowel or air-fluid levels seen. Gated colonic gas is present but there is overall po ssibly of gas in the abdomen. Cholecystectomy clips. Degenerative changes lower lumbar spine. Vascular calcifications in the pelvis. IMPRESSION: 1. Nonspecific, overall nonobstructive bowel gas pattern. No free air. 2. Possible trace effusions and suggestion of interstitial opacities at the lung bases.
--- NOTE | 2016-05-23 14:25 | P.PN ---
Subjective This is a 70-year-old male who is being evaluated and examined today on the sixth floor. This patient came into the emergency room for evaluation of shortness of breath and resting chest pain. CT of the abdomen and pelvis revealed wall thickening of the base of the cecum with mild surrounding that stranding which may represent colitis or possible inflammatory process, diverticulosis without evidence of diverticulitis, and increased perinephric stranding bilaterally. Patient also had a CTA which revealed no pulmonary embolus that could be identified, multifocal pneumonia, trace left pleural effusion and small right pleural effusion, probable mildly prominent subcarnial lymph nodes that are nonspecific. After evaluation from the emergency room the patient was admitted with pneumonia, sepsis, non-STEMI, proximal atrial fibrillation, and fever. This patient is well-known to our service. This patient has had recent hospitalizations regarding respiratory failure. Upon examination the patient is resting up in bed on 6 L of oxygen. Patient continues to complain of a productive cough and has difficulty bringing up any secretions. Blood cultures positive for strep pneumo. Sputum cultures positive for MRSA patient already on vancomycin. Incentive spirometer encouraged. Patient continues to feel very rundown today. It is noted that his white count went up again today. Infectious disease now on consult for patient and has adjusted the antibiotic therapy. Patient also complaining of abdominal discomfort, and tenderness, some mild distention noted, we will obtain an abdominal x-ray. Objective - Vital Signs Vital signs: Vital Signs Temp 96.2 F L 05/23/16 11:05 Pulse 63 05/23/16 11:05 Resp 18 05/23/16 11:05 BP 100/61 05/23/16 11:05 Pulse Ox 95 05/23/16 11:05 Intake & Output 05/22/16 05/23/16 05/23/16 18:59 06:59 18:59 Intake Total 420 120 Output Total 1500 1650 Balance -1080 -1650 120 Weight 80.7 kg Intake: Oral 420 120 Output: Urine 1500 1650 Other: Voiding Method Toilet Toilet # Voids 1 # Bowel Movements 0 - Exam GENERAL EXAM: Alert, active, comfortable in no apparent distress. HEAD: Normocephalic. EYES: Normal reaction of pupils, equal size. NOSE: Clear with pink turbinates. THROAT: No erythema or exudates. NECK: No masses, no JVD. CHEST: No chest wall deformity. LUNGS: Equal air entry which is coarse, some scattered rhonchi and wheezes noted bases diminished CVS: S1 and S2 normal with no audible mumurs, ABDOMEN: No hepatosplenomegaly, normal bowel sounds, no guarding or rigidity. EXTREMITIES: No edema noted, pedal pulses palpable. SKIN: No rashes CENTRAL NERVOUS SYSTEM: No focal deficits, tone is normal in all 4 extremities. - Labs CBC & Chem 7: 05/23/16 06:09 05/23/16 06:09 Labs: Abnormal Lab Results - Last 24 Hours (Table) 05/22/16 05/22/16 05/22/16 Range/Units 04:50 16:32 20:33 WBC 29.9 H* (3.8-10.6) k/uL RBC 4.27 L (4.30-5.90) m/uL Plt Count 484 H (150-450) k/uL Neutrophils # (Manual) 27.8 H (1.3-7.7) k/uL Chloride (98-107) mmol/L Carbon Dioxide (22-30) mmol/L BUN (9-20) mg/dL Glucose (74-99) mg/dL POC Glucose (mg/dL) 154 H 160 H (75-99) mg/dL Total Protein (6.3-8.2) g/dL Albumin (3.5-5.0) g/dL 05/23/16 05/23/16 05/23/16 Range/Units 06:09 06:09 06:19 WBC 33.8 H* (3.8-10.6) k/uL RBC (4.30-5.90) m/uL Plt Count 458 H (150-450) k/uL Neutrophils # (Manual) 32.4 H (1.3-7.7) k/uL Chloride 97 L (98-107) mmol/L Carbon Dioxide 31 H (22-30) mmol/L BUN 41 H (9-20) mg/dL Glucose 213 H (74-99) mg/dL POC Glucose (mg/dL) 188 H (75-99) mg/dL Total Protein 5.0 L (6.3-8.2) g/dL Albumin 2.8 L (3.5-5.0) g/dL Assessment and Plan Plan: Assessment Community-acquired pneumonia with sepsis Acute respiratory failure secondary to pneumonia Paroxysmal Atrial fibrillation Indeterminate, Elevated troponins, cardiology following Congestive heart failure, likely diastolic B-cell lymphoma Diabetes mellitus Hypertension Plan Medications have been reviewed and will be continued as ordered. We will also continue the patient on steroids and continue to monitor blood sugars. Incentive spirometer has been initiated and will be encouraged. Infectious disease on consult and appreciate recommendations. Abdominal x-ray ordered awaiting results. We will continue to monitor labs/results and adjust treatment as necessary. I performed an examination of the patient and discussed their management with the nurse practitioner. I have reviewed the nurse practitioner's note and agree with the documented findings and plan of care.
[2016-05-23 17:01] LABS: Glucose,Whole Blood 211 mg/dL (75-99)
--- NOTE | 2016-05-23 17:10 | P.PN ---
Subjective 70-year-old gentleman with history of B cell lymphoma currently in remission after stem cell transportation and chemotherapy with history of paroxysmal atrial fibrillation comes in the hospital with the generalized weakness and difficulty breathing for the last few days prior to admission. Patient states that he has had progressive worsening of dyspnea states to have a cough that is productive in nature. Patient states his cough has been producing pinkish red fluid. Patient states to have had associated chills and mild episodes of fevers over the last few days. Patient has had multiple episodes of pneumonia including influenza pneumonitis which required endotracheal intubation and support within the last year. Currently patient underwent a computed tomography scan of the chest which shows multifocal pneumonia however there is significant fluid noted in the lobar creases. states to be feeling slightly improved denies having headaches, blurry vision, nausea, vomiting, diarrhea, urinary urgency or frequency. Her graft patient does not recall why he is not on anticoagulation upon review of previous notes patient was apparently critically ill hence was discharged without anticoagulation and only on aspirin. in the emergency room patient was noted to have tachycardia was started on a Cardizem drip currently at 10 mg per hour. Blood cultures were also positive with gram-positive cocci in pairs. 05/20/16 States to be feeling better States to pain in his chest associated with cough, which has been productive today. CXR today was reviewed, was concerning for interstitial edema. no fevers, chills, nausea, vomiting diarrhea reported. 05/21/16 continues to be on 5 l o2 has cough non productive in nature No fevers, chills, n/v, diarrhea reported. 05/22/16 States to have chest pain on cough. on 5l. No fevers, chills, nausea, vomiting or diarrhea reported. 05/23/16 improving currently on 2 l o2 Denies having cp, does have a cough minimally productive in nature No diarrhea or urinary symptoms reported. Objective - Vital Signs Vital signs: Vital Signs Temp 96.2 F L 05/23/16 11:05 Pulse 74 05/23/16 15:40 Resp 18 05/23/16 11:05 BP 100/61 05/23/16 11:05 Pulse Ox 95 05/23/16 11:05 Intake & Output 05/22/16 05/23/16 05/23/16 18:59 06:59 18:59 Intake Total 420 240 Output Total 1500 1650 800 Balance -1080 -1650 -560 Weight 80.7 kg Intake: Oral 420 240 Output: Urine 1500 1650 800 Other: Voiding Method Toilet Toilet # Voids 1 # Bowel Movements 0 0 - Constitutional General appearance: Present: no acute distress - EENT Eyes: Present: PERRLA - Neck Neck: Present: normal ROM. Absent: rigidity - Respiratory Respiratory: bilateral: rales (improved from prior exam.), negative: dullness, rhonchi, wheezing - Cardiovascular Rhythm: regular Heart sounds: normal: S1, S2 Abnormal Heart Sounds: Absent: systolic murmur - Gastrointestinal General gastrointestinal: Present: normal bowel sounds, soft. Absent: organomegaly, tenderness - Integumentary Integumentary: Present: normal - Neurologic Neurologic: Present: CNII-XII intact. Absent: focal deficits - Musculoskeletal Musculoskeletal: Present: gait normal - Psychiatric Psychiatric: Present: A&O x's 3, appropriate affect - Labs CBC & Chem 7: 05/23/16 06:09 05/23/16 06:09 Labs: Abnormal Lab Results - Last 24 Hours (Table) 05/22/16 05/22/16 05/23/16 Range/Units 04:50 20:33 06:09 WBC 29.9 H* 33.8 H* (3.8-10.6) k/uL RBC 4.27 L (4.30-5.90) m/uL Plt Count 484 H 458 H (150-450) k/uL Neutrophils # (Manual) 27.8 H 32.4 H (1.3-7.7) k/uL Chloride (98-107) mmol/L Carbon Dioxide (22-30) mmol/L BUN (9-20) mg/dL Glucose (74-99) mg/dL POC Glucose (mg/dL) 160 H (75-99) mg/dL Total Protein (6.3-8.2) g/dL Albumin (3.5-5.0) g/dL 05/23/16 05/23/16 05/23/16 Range/Units 06:09 06:19 11:29 WBC (3.8-10.6) k/uL RBC (4.30-5.90) m/uL Plt Count (150-450) k/uL Neutrophils # (Manual) (1.3-7.7) k/uL Chloride 97 L (98-107) mmol/L Carbon Dioxide 31 H (22-30) mmol/L BUN 41 H (9-20) mg/dL Glucose 213 H (74-99) mg/dL POC Glucose (mg/dL) 188 H 243 H (75-99) mg/dL Total Protein 5.0 L (6.3-8.2) g/dL Albumin 2.8 L (3.5-5.0) g/dL 05/23/16 Range/Units 16:38 WBC (3.8-10.6) k/uL RBC (4.30-5.90) m/uL Plt Count (150-450) k/uL Neutrophils # (Manual) (1.3-7.7) k/uL Chloride (98-107) mmol/L Carbon Dioxide (22-30) mmol/L BUN (9-20) mg/dL Glucose (74-99) mg/dL POC Glucose (mg/dL) 211 H (75-99) mg/dL Total Protein (6.3-8.2) g/dL Albumin (3.5-5.0) g/dL Assessment and Plan Plan: acute hypoxic respiratory failure secondary to multifocal pneumonia sec to MRSA #2 sepsis secondary to above #3 diabetes mellitus type 2 #4 hypertension #5 B-cell lymphoma, s/p surgical resection and underwent BM transplant after induction chemo. #6 paroxysmal atrial fibrillation #7 sinus tachycardia multiple PACs present on admission at this time #8 indeterminate troponin leak likely secondary to above #9 acute exacerbation of systolic and diastolic heart failure, ef 40-45% 10. bacteremia with staph aureus. plan continue with antibiotics, rocephin and vancomycin. change to po lasix 40mg bidf cxr improving. breathing tx steroids pulmonary hygiene strict I/O titrate o2. will start on novel anticoagulants for a fib, chadsvasc of atleast 4
[2016-05-23 21:04] LABS: Glucose,Whole Blood 175 mg/dL (75-99)
[2016-05-24] MEDS ORDERED: VANCOMYCIN TROUGH DUE 1 EACH MISC MISCELLANE ONE (05:00)
[2016-05-24 06:26] LABS: Glucose,Whole Blood 152 mg/dL (75-99)
[2016-05-24] MEDS: INSULIN LISPRO (humaLOG) 300 UNIT/3 ML VIAL SQ SCH ×7 (07:15→22:20)
--- NOTE | 2016-05-24 07:19 | PN ---
DATE OF SERVICE: 05/23/2016 Reason for follow up is strep pneumo bacteremia and MRSA pneumonia. INTERVAL HISTORY: The patient is afebrile. He has been complaining of significant shortness of breath with minimal exertion. Patient denies any chest pain. He did have a cough and not brining up any significant amount of sputum. No abdominal pain, no diarrhea. On examination, blood pressure 120/54 with a pulse of 88, temperature 96.2. He is 96% on 4-L nasal cannula. General description is an elderly male, lying in bed in no distress. RESPIRATORY SYSTEM: Unlabored breathing with decreased breath sounds at base. No wheeze. HEART: S1, S2. Regular rate and rhythm. ABDOMEN: Soft, no tenderness. LABS: Hemoglobin is 13.7, white count 33.8 with a BUN of 41, creatinine 0.95. Blood culture so far pending. DIAGNOSTIC IMPRESSION AND PLAN: Patient admitted to hospital pneumonia multifocal likely strep pneumo. Sputum was positive for methicillin-resistant Staphylococcus aureus. There is question of possible colonization or being infected pathogen. The patient will continue on Rocephin and vancomycin. He did have elevated white count, more likely secondary to steroid. Patient is ( ). Clinically doubt any worsening of his medical condition. Hopefully the patient continues to improve. Will be able to finish therapy with oral Zyvox to cover both pathogens. Continue supportive care.
[2016-05-24 07:28] LABS: ALT 39 U/L (21-72); AST 22 U/L (17-59); Alkaline Phosphatase 72 U/L (38-126); Anion Gap 10 mmol/L; Blood Urea Nitrogen 41 mg/dL (9-20); Calcium 8.6 mg/dL (8.4-10.2); Carbon Dioxide 28 mmol/L (22-30); Chloride 99 mmol/L (98-107); Glucose 144 mg/dL (74-99); Magnesium 2.4 mg/dL (1.6-2.3); Non-African American GFR(MDRD) >60 (>60 ml/min/1.73 sqM); Potassium 4.8 mmol/L (3.5-5.1); Sodium 137 mmol/L (137-145); Total Bilirubin 0.6 mg/dL (0.2-1.3); Total Protein 4.9 g/dL (6.3-8.2)
[2016-05-24 07:47] LABS: Aty Lym Flag Marked; CH 31.1; CHCM 33.1; HCT 42.5 % (39.0-53.0); HDW 2.98; HGB 13.9 gm/dL (13.0-17.5); MCH 30.8 pg (25.0-35.0); MCHC 32.7 g/dL (31.0-37.0); MCV 94.2 fL (80.0-100.0); MPO Flag Slight; Mean Platelet Volume 7.5; RBC 4.51 m/uL (4.30-5.90); RDW 15.1 % (11.5-15.5); WBC (Perox) 27.96
[2016-05-24 07:51] LABS: WBC 26.7 k/uL (3.8-10.6)
[2016-05-24] MEDS: ASPIRIN 81 MG CHEW PO SCH (08:07)
[2016-05-24] MEDS: methylPREDNISolone SOD SUCCI 40 MG/ML 1 ML VIAL IV SCH ×2 (08:07→22:20)
[2016-05-24] MEDS: POTASSIUM CHLORIDE ER 20 MEQ TAB.ER PO SCH ×2 (08:07→22:20)
[2016-05-24] MEDS: FUROSEMIDE 40 MG TAB PO SCH ×2 (08:08→16:56)
[2016-05-24] MEDS: cefTRIAXone 2,000 MG in SODIUM CHLORIDE 0.9% 100 ML IVPB SCH (08:08)
[2016-05-24] MEDS: METOPROLOL TARTRATE 50 MG TAB PO SCH ×2 (08:08→22:19)
[2016-05-24] MEDS: HEPARIN SODIUM,PORCINE 5,000 UNIT/ML 1 ML VIAL SQ SCH (08:08)
[2016-05-24 08:28] LABS: Add Differential Manual Differential
[2016-05-24 08:29] LABS: Nucleated Red Blood Cells 0 /100 WBC (0-0); Total Cells Counted 100
[2016-05-24] MEDS: BUDESONIDE 0.5 MG/2 ML NEBU INHALATION SCH ×2 (08:41→22:01)
[2016-05-24] MEDS: IPRATROPIUM-ALBUTEROL 3 ML NEB INHALATION SCH ×4 (08:41→22:01)
[2016-05-24] MEDS: VANCOMYCIN 1,500 MG in SODIUM CHLORIDE 0.9% 250 ML IVPB SCH ×2 (09:44→18:40)
--- NOTE | 2016-05-24 11:07 | XR ---
EXAMINATION TYPE: XR chest 1V portable DATE OF EXAM: 05/24/2016 9:19 AM COMPARISON: Prior chest x-ray 22 May 2016 HISTORY: Difficulty breathing, pneumonia TECHNIQUE: Single frontal view of the chest is obtained. FINDINGS: Stable appearance. Heart is enlarged. Postop changes again noted. No pneumothorax or evide nt effusion. Interstitium is increased. IMPRESSION: Stable exam.
[2016-05-24 11:25] LABS: Glucose,Whole Blood 202 mg/dL (75-99)
--- NOTE | 2016-05-24 11:41 | P.PN ---
Subjective This is a 70-year-old male who is being evaluated and examined today on the sixth floor. This patient came into the emergency room for evaluation of shortness of breath and resting chest pain. CT of the abdomen and pelvis revealed wall thickening of the base of the cecum with mild surrounding that stranding which may represent colitis or possible inflammatory process, diverticulosis without evidence of diverticulitis, and increased perinephric stranding bilaterally. Patient also had a CTA which revealed no pulmonary embolus that could be identified, multifocal pneumonia, trace left pleural effusion and small right pleural effusion, probable mildly prominent subcarnial lymph nodes that are nonspecific. After evaluation from the emergency room the patient was admitted with pneumonia, sepsis, non-STEMI, proximal atrial fibrillation, and fever. This patient is well-known to our service. This patient has had recent hospitalizations regarding respiratory failure. Upon examination the patient is resting up in bed on 2 L of oxygen. Patient states he feels less short of breath today. Blood cultures positive for strep pneumo. Sputum cultures positive for MRSA patient already on vancomycin. Incentive spirometer encouraged. It is noted that his white count went up again today. Infectious disease now on consult for patient and has adjusted the antibiotic therapy. Patient states he feels a lot better today, the best he has felt since admission. Objective - Vital Signs Vital signs: Vital Signs Temp 97.9 F 05/24/16 10:53 Pulse 84 05/24/16 10:53 Resp 16 05/24/16 10:53 BP 127/70 05/24/16 10:53 Pulse Ox 95 05/24/16 10:53 Intake & Output 05/23/16 05/24/16 05/24/16 18:59 06:59 18:59 Intake Total 360 285 120 Output Total 1600 500 300 Balance -1240 -215 -180 Weight 80.8 kg Intake: IV 285 Saline 35 Vancomycin 1,500 mg In 250 Sodium Chloride 0.9% 250 ml @ 125 mls/hr IVPB Q16H [facility] Rx#:[id number] Oral 360 120 Output: Urine 1600 500 300 Other: # Voids 1 2 1 # Bowel Movements 0 - Exam GENERAL EXAM: Alert, active, comfortable in no apparent distress. HEAD: Normocephalic. EYES: Normal reaction of pupils, equal size. NOSE: Clear with pink turbinates. THROAT: No erythema or exudates. NECK: No masses, no JVD. CHEST: No chest wall deformity. LUNGS: Equal air entry which is coarse, few scattered rhonchi and wheezes noted bases diminished CVS: S1 and S2 normal with no audible mumurs, ABDOMEN: No hepatosplenomegaly, normal bowel sounds, no guarding or rigidity. EXTREMITIES: No edema noted, pedal pulses palpable. SKIN: No rashes CENTRAL NERVOUS SYSTEM: No focal deficits, tone is normal in all 4 extremities. - Labs CBC & Chem 7: 05/24/16 06:39 05/24/16 06:39 Labs: Abnormal Lab Results - Last 24 Hours (Table) 05/23/16 05/23/16 05/23/16 Range/Units 11:29 16:38 21:03 WBC (3.8-10.6) k/uL Plt Count (150-450) k/uL Neutrophils # (Manual) (1.3-7.7) k/uL BUN (9-20) mg/dL Glucose (74-99) mg/dL POC Glucose (mg/dL) 243 H 211 H 175 H (75-99) mg/dL Magnesium (1.6-2.3) mg/dL Total Protein (6.3-8.2) g/dL Albumin (3.5-5.0) g/dL 05/24/16 05/24/16 05/24/16 Range/Units 06:25 06:39 06:39 WBC 26.7 H* (3.8-10.6) k/uL Plt Count 518 H (150-450) k/uL Neutrophils # (Manual) 24.6 H (1.3-7.7) k/uL BUN 41 H (9-20) mg/dL Glucose 144 H (74-99) mg/dL POC Glucose (mg/dL) 152 H (75-99) mg/dL Magnesium 2.4 H (1.6-2.3) mg/dL Total Protein 4.9 L (6.3-8.2) g/dL Albumin 2.7 L (3.5-5.0) g/dL 05/24/16 Range/Units 11:23 WBC (3.8-10.6) k/uL Plt Count (150-450) k/uL Neutrophils # (Manual) (1.3-7.7) k/uL BUN (9-20) mg/dL Glucose (74-99) mg/dL POC Glucose (mg/dL) 202 H (75-99) mg/dL Magnesium (1.6-2.3) mg/dL Total Protein (6.3-8.2) g/dL Albumin (3.5-5.0) g/dL Microbiology - Last 24 Hours (Table) 05/22/16 16:36 Blood Culture - Preliminary Blood No Growth after 24 hours 05/22/16 16:07 Blood Culture - Preliminary Blood No Growth after 24 hours Assessment and Plan Plan: Assessment Community-acquired pneumonia with sepsis Acute respiratory failure secondary to pneumonia Paroxysmal Atrial fibrillation Indeterminate, Elevated troponins, cardiology following Congestive heart failure, likely diastolic B-cell lymphoma Diabetes mellitus Hypertension Plan Medications have been reviewed and will be continued as ordered. Continue to try to wean oxygen off. We will also continue to wean the patient down on steroids and continue to monitor blood sugars. Incentive spirometer has been initiated and will be encouraged. Infectious disease on consult and appreciate recommendations. We will continue to monitor labs/results and adjust treatment as necessary. I performed an examination of the patient and discussed their management with the nurse practitioner. I have reviewed the nurse practitioner's note and agree with the documented findings and plan of care.
--- NOTE | 2016-05-24 15:44 | P.PN ---
Subjective Principal diagnosis: Shortness of breath This is a 70-year-old gentleman with history of lymphoma, status post voluntary transplant, hypertension, lymphoma, history of paroxysmal atrial fibrillation, recurrent admissions for sepsis and pneumonia. Presented to the hospital again on this occasion with symptoms of progressively worsening shortness of breath. Patient also states that he has been experiencing fever and chills at home and has been coughing up pinkish colored sputum. Patient has also had recent admissions to the hospital with pneumonia requiring intubation. Echocardiogram with Doppler study was performed which revealed an ejection fraction of 40-45%. Moderate to severe mitral regurgitation with moderate tricuspid regurgitation. Blood cultures positive for gram-positive cocci in pairs. Feeling much better overall, continues to have cough, clear. Patient was initiated today on Eliquis for stroke prevention. The risks and the benefits were explained to the patient and his in detail. Objective - Vital Signs Vital signs: Vital Signs Temp 97.5 F L 05/24/16 15:29 Pulse 82 05/24/16 15:29 Resp 16 05/24/16 15:29 BP 113/63 05/24/16 15:29 Pulse Ox 96 05/24/16 15:29 Intake & Output 05/23/16 05/24/16 05/24/16 18:59 06:59 18:59 Intake Total 360 285 360 Output Total 1600 500 700 Balance -1240 -215 -340 Weight 80.8 kg Intake: IV 285 Saline 35 Vancomycin 1,500 mg In 250 Sodium Chloride 0.9% 250 ml @ 125 mls/hr IVPB Q16H [facility] Rx#:[id number] Oral 360 360 Output: Urine 1600 500 700 Other: # Voids 1 2 1 # Bowel Movements 0 - Exam PHYSICAL EXAMINATION: HEENT: Head is atraumatic, normocephalic. Pupils equal, round. Neck is supple. There is no elevated jugular venous pressure. HEART EXAMINATION: Heart S1, S2 normal. No murmur or gallop heard. CHEST EXAMINATION: Lungs reveal scattered crackles bilaterally. ABDOMEN: Soft, nontender. Bowel sounds are heard. No organomegaly noted. EXTREMITIES: 2+ peripheral pulses with no evidence of peripheral edema and no calf tenderness noted. NEUROLOGIC patient is awake, alert and oriented -3. - Labs CBC & Chem 7: 05/24/16 06:39 05/24/16 06:39 Labs: Abnormal Lab Results - Last 24 Hours (Table) 05/23/16 05/23/16 05/24/16 Range/Units 16:38 21:03 06:25 WBC (3.8-10.6) k/uL Plt Count (150-450) k/uL Neutrophils # (Manual) (1.3-7.7) k/uL BUN (9-20) mg/dL Glucose (74-99) mg/dL POC Glucose (mg/dL) 211 H 175 H 152 H (75-99) mg/dL Magnesium (1.6-2.3) mg/dL Total Protein (6.3-8.2) g/dL Albumin (3.5-5.0) g/dL 05/24/16 05/24/16 05/24/16 Range/Units 06:39 06:39 11:23 WBC 26.7 H* (3.8-10.6) k/uL Plt Count 518 H (150-450) k/uL Neutrophils # (Manual) 24.6 H (1.3-7.7) k/uL BUN 41 H (9-20) mg/dL Glucose 144 H (74-99) mg/dL POC Glucose (mg/dL) 202 H (75-99) mg/dL Magnesium 2.4 H (1.6-2.3) mg/dL Total Protein 4.9 L (6.3-8.2) g/dL Albumin 2.7 L (3.5-5.0) g/dL Microbiology - Last 24 Hours (Table) 05/19/16 00:21 Blood Culture Gram Stain - Final Blood Blood Culture - Final Streptococcus pneumoniae 05/22/16 16:36 Blood Culture - Preliminary Blood No Growth after 24 hours 05/22/16 16:07 Blood Culture - Preliminary Blood No Growth after 24 hours Assessment and Plan Plan: Assessment and plan #1 acute respiratory failure secondary to pneumonia #2 diabetes #3 hypertension #4 hyperlipidemia #5 paroxysmal atrial fibrillation #6 B cell lymphoma #7 sinus tachycardia with multiple PACs, no current evidence of atrial fibrillation #8 abnormal troponins, not suggestive of acute coronary syndrome. #9 mild congestive cardiac failure, likely diastolic in nature. Patient's most recent echocardiogram with Doppler study was performed in April 2015 which revealed a normal ejection fraction at that time. Plan From Cardiology's perspective, we'll recommend to continue the patient on his current medications. We will add Eliquis to his medication regime for stroke prevention. Once the patient is discharged from the hospital follow-up appointment with Dr. Jones will be made in the office. DNP note has been reviewed, I agree with a documented findings and plan of care. Patient was seen and examined.
[2016-05-24 16:19] LABS: Glucose,Whole Blood 109 mg/dL (75-99)
[2016-05-24] MEDS: APIXABAN 5 MG TAB PO SCH ×2 (16:58→22:19)
[2016-05-24 20:55] LABS: Glucose,Whole Blood 147 mg/dL (75-99)
--- NOTE | 2016-05-24 21:19 | PN ---
DATE OF SERVICE: 05/24/2016 REASON FOR FOLLOWUP: Strep pneumoniae bacteremia and MRSA-positive sputum. INTERVAL HISTORY: The patient is afebrile. He is feeling currently better, breathing comfortably. The patient denies significant chest pain. Occasional cough. No abdominal pain or any diarrhea. On examination, blood pressure is 113/63 with a pulse of 80, temperature 97.5. He is 96% on room air. General description is an elderly male up in the bed in no distress. HEENT EXAMINATION: Slight pallor. No scleral icterus. Oral mucous membrane dry. LUNGS: Unlabored breathing. Some coarse breath sounds at the base. No wheeze. HEART: S1, S2. Regular rate and rhythm. ABDOMEN: Soft. No tenderness. LABS: Hemoglobin is 13.9 with white count 26.7 with a BUN of 41, creatinine creatinine 0.86. Follow-up blood culture has been negative. DIAGNOSTIC IMPRESSION AND PLAN: Patient with Streptococcal pneumoniae bacteremia. Source is likely pneumonia; sputum also showing methicillin-resistant Staphylococcus aureus with a question of possible colonization versus the pathogen. He is currently on Rocephin and vancomycin. Plan will be to finish therapy with Zyvox 600 daily for another 10 to 12 days. Continue supportive care.
[2016-05-24] MEDS: INSULIN GLARGINE 100 UNIT/ML 10 ML VIAL SQ SCH (22:21)
[2016-05-24] MEDS: VANCOMYCIN 1,250 MG in SODIUM CHLORIDE 0.9% 250 ML IVPB SCH (23:12)
[2016-05-25 06:52] LABS: Glucose,Whole Blood 128 mg/dL (75-99)
[2016-05-25 07:44] VITALS: RESP 16
[2016-05-25] MEDS: METOPROLOL TARTRATE 50 MG TAB PO SCH (07:59)
[2016-05-25] MEDS: cefTRIAXone 2,000 MG in SODIUM CHLORIDE 0.9% 100 ML IVPB SCH (07:59)
[2016-05-25] MEDS: methylPREDNISolone SOD SUCCI 40 MG/ML 1 ML VIAL IV SCH (07:59)
[2016-05-25] MEDS: FUROSEMIDE 40 MG TAB PO SCH ×2 (07:59→16:09)
[2016-05-25] MEDS: POTASSIUM CHLORIDE ER 20 MEQ TAB.ER PO SCH (08:00)
[2016-05-25] MEDS: ASPIRIN 81 MG CHEW PO SCH (08:00)
[2016-05-25] MEDS: APIXABAN 5 MG TAB PO SCH (08:00)
[2016-05-25] MEDS: INSULIN LISPRO (humaLOG) 300 UNIT/3 ML VIAL SQ SCH ×6 (08:01→17:49)
[2016-05-25] MEDS: BUDESONIDE 0.5 MG/2 ML NEBU INHALATION SCH (08:26)
[2016-05-25] MEDS: IPRATROPIUM-ALBUTEROL 3 ML NEB INHALATION SCH ×3 (08:26→17:32)
[2016-05-25 09:10] LABS: Aty Lym Flag Moderate; CH 30.9; CHCM 31.9; HCT 45.4 % (39.0-53.0); HDW 2.75; HGB 13.9 gm/dL (13.0-17.5); MCH 29.7 pg (25.0-35.0); MCHC 30.6 g/dL (31.0-37.0); MCV 97.1 fL (80.0-100.0); MPO Flag Slight; Mean Platelet Volume 7.2; RBC 4.68 m/uL (4.30-5.90); RDW 15.4 % (11.5-15.5); WBC 18.9 k/uL (3.8-10.6); WBC (Perox) 20.17
--- NOTE | 2016-05-25 09:19 | PN ---
DATE OF SERVICE: 05/24/2016 HISTORY OF ILLNESS: Mr. Phillips is a 70-year-old man with known history of diabetes mellitus, B-cell lymphoma currently in remission, status post stem-cell transplantation as well as chemotherapy and history of paroxysmal atrial fibrillation. Admitted to the hospital with progressive worsening dyspnea and a cough with productive sputum, currently being treated for step pneumonia. Patient had blood cultures and sputum cultures showing MRSA. Currently on antibiotics in the form of vancomycin, ceftriaxone. ID and Cardiology are following this patient. Patient had multitude episodes of pneumonia including influenza pneumonitis which required endotracheal intubation. Patient today says that his breathing is better now. Otherwise, patient does complain of coldness in the feet and otherwise, denied any complaints of fever or chills. No discoloration of the skin noted. Heart rate has better control now. Currently on oxygen 2 L via nasal cannula. Denied any cough or sputum production. REVIEW OF SYSTEMS: CONSTITUTIONAL: No fever. No chills. The patient does have weakness. RESPIRATORY: No cough, sputum production. CARDIOVASCULAR: No chest pain. No worsening short of breath. RESPIRATORY: No cough. Patient does not have any worsening short of breath. ABDOMEN: No nausea, vomiting, or abdominal pain. GENITOURINARY: Negative. ENDOCRINE: Negative. PSYCHIATRY: Negative. SKIN: Negative. All other 14-point review of systems negative except as above. Current medications include [place] 5/325, DuoNeb, Eliquis, aspirin, Pulmicort, ceftriaxone, Lasix, Lantus, Humalog 10 units t.i.d. a.c., methylprednisolone, Lopressor, Zofran, potassium chloride, vancomycin. PHYSICAL EXAMINATION: A 70-year-old male lying in the bed comfortably, awake, alert, oriented, x3. Appears to be in no apparent distress. VITALS: Blood pressure is 101/68, pulse is 51, respirations 20, temperature afebrile, pulse ox 93% on room air. HEENT: Atraumatic, normocephalic. Neck is supple. No JVD. CVS EXAM: S1, S2 heard. No murmurs, no gallop, no rub. LUNGS: Bilateral air entry is present, prolonged expiratory phase at the bases, nonlabored breathing. Abdomen is soft, nontender, bowel sounds present. TRACTOR EXPERT: Awake, alert, oriented x3, no focal deficits. EXTREMITIES: No edema. Pulses palpable bilaterally, no clubbing or cyanosis. Patient does have cold feet and pulses are feeble. PSYCHIATRIC: Cooperative and anxious. LABORATORY DATA: WBC 26.7, hemoglobin 13.9, platelets 518, sodium 137, potassium 4.8, chloride 99, bicarb is 28. BUN 41, creatinine 0.86. Blood sugar is 144. Calcium 8.6, magnesium 2.4, total bilirubin is 0.6, AST is 72, ALT is 39, alk phos 72, albumin 2.7. Vancomycin 20.3. Reviewed blood cultures no growth in the last 48 hours. IMPRESSION: 1. Acute hypoxic respiratory failure secondary to multifocal pneumonia secondary to methicillin-resistant Staphylococcus aureus. 2. Sepsis secondary to as above. 3. Diabetes type 2, insulin-dependent. 4. Hypertension. 5. B-cell lymphoma, status post surgical resection and bone marrow transplant after induction chemotherapy. 6. Paroxysmal atrial fibrillation, rate controlled. Currently on anticoagulation started in the form of Eliquis. 7. Sinus tachycardia with multiple premature atrial contractions, present on admission. 8. Intermediate troponin, likely secondary to sepsis and tachycardia. 9. Acute on chronic congestive heart failure with a systolic and diastolic dysfunction, ejection fraction 40% to 45%, improved now. 10. Methicillin-resistant Staphylococcus aureus septicemia, possible infection versus colonization, present in the sputum as well. 11. Significant leukocytosis, improving. DISCUSSION AND PLAN: Patient will be continued on antibiotics, Rocephin and vancomycin. Follow up repeat labs in the morning. Will continue the p.o. Lasix at this time. Anticoagulation has been started in the form of Eliquis. Cardiology and ID is following this patient. Will continue with the breathing treatments, steroids and follow up closely and further recommendations based on the clinical course. Will gradually taper down steroids.
[2016-05-25 09:37] LABS: ALT 41 U/L (21-72); AST 25 U/L (17-59); Alkaline Phosphatase 68 U/L (38-126); Anion Gap 9 mmol/L; Blood Urea Nitrogen 37 mg/dL (9-20); Calcium 8.3 mg/dL (8.4-10.2); Carbon Dioxide 26 mmol/L (22-30); Chloride 99 mmol/L (98-107); Glucose 204 mg/dL (74-99); Non-African American GFR(MDRD) >60 (>60 ml/min/1.73 sqM); Potassium 4.7 mmol/L (3.5-5.1); Sodium 134 mmol/L (137-145); Total Bilirubin 0.6 mg/dL (0.2-1.3); Total Protein 4.7 g/dL (6.3-8.2)
[2016-05-25 10:23] LABS: Add Differential Manual Differential
[2016-05-25 10:27] LABS: Manual Review Performed; Metamyelocytes % 0.5 %; Myelocytes % 0.5 %; Nucleated Red Blood Cells 0 /100 WBC (0-0); Total Cells Counted 200
[2016-05-25] MEDS: VANCOMYCIN 1,250 MG in SODIUM CHLORIDE 0.9% 250 ML IVPB SCH (12:08)
[2016-05-25 12:12] LABS: Glucose,Whole Blood 170 mg/dL (75-99)
[2016-05-25 13:53] VITALS: BMI 27.2
--- NOTE | 2016-05-25 14:31 | P.PN ---
Subjective This is a 70-year-old male who is being evaluated and examined today on the sixth floor. This patient came into the emergency room for evaluation of shortness of breath and resting chest pain. CT of the abdomen and pelvis revealed wall thickening of the base of the cecum with mild surrounding that stranding which may represent colitis or possible inflammatory process, diverticulosis without evidence of diverticulitis, and increased perinephric stranding bilaterally. Patient also had a CTA which revealed no pulmonary embolus that could be identified, multifocal pneumonia, trace left pleural effusion and small right pleural effusion, probable mildly prominent subcarnial lymph nodes that are nonspecific. After evaluation from the emergency room the patient was admitted with pneumonia, sepsis, non-STEMI, proximal atrial fibrillation, and fever. This patient is well-known to our service. This patient has had recent hospitalizations regarding respiratory failure. Upon examination the patient is resting up in bed on room air. patient denies any shortness of breath. Blood cultures positive for strep pneumo. Sputum cultures positive for MRSA patient already on vancomycin. Incentive spirometer encouraged. Infectious disease now on consult for patient and has adjusted the antibiotic therapy. Patient states he feels a lot better today, the best he has felt since admission, patient could be cleared for discharge from a pulmonary standpoint. Objective - Vital Signs Vital signs: Vital Signs Temp 96.5 F L 05/25/16 07:00 Pulse 78 05/25/16 13:32 Resp 16 05/25/16 08:00 BP 108/62 05/25/16 07:00 Pulse Ox 96 05/25/16 07:00 Intake & Output 05/24/16 05/25/16 05/25/16 18:59 06:59 18:59 Intake Total 360 550 Output Total 1200 Balance -840 550 Weight 79 kg 79 kg Intake: IV 100 cefTRIAXone 2,000 mg In 100 Sodium Chloride 0.9% 100 ml @ 100 mls/hr IVPB Q24HR ESTUARDO Rx#:[id number] Intake, IV Titration 250 Amount Vancomycin 1,250 mg In 250 Sodium Chloride 0.9% 250 ml @ 125 mls/hr IVPB Q12H ESTUARDO Rx#:[id number] Oral 360 200 Output: Urine 1200 Other: # Voids 1 - Exam GENERAL EXAM: Alert, active, comfortable in no apparent distress. HEAD: Normocephalic. EYES: Normal reaction of pupils, equal size. NOSE: Clear with pink turbinates. THROAT: No erythema or exudates. NECK: No masses, no JVD. CHEST: No chest wall deformity. LUNGS: Equal air entry which is coarse, few scattered wheezes noted bases diminished CVS: S1 and S2 normal with no audible mumurs, ABDOMEN: No hepatosplenomegaly, normal bowel sounds, no guarding or rigidity. EXTREMITIES: No edema noted, pedal pulses palpable. SKIN: No rashes CENTRAL NERVOUS SYSTEM: No focal deficits, tone is normal in all 4 extremities. - Labs CBC & Chem 7: 05/25/16 08:29 05/25/16 08:29 Labs: Abnormal Lab Results - Last 24 Hours (Table) 05/24/16 05/24/16 05/25/16 Range/Units 16:17 20:51 06:51 WBC (3.8-10.6) k/uL MCHC (31.0-37.0) g/dL Plt Count (150-450) k/uL Neutrophils # (Manual) (1.3-7.7) k/uL Lymphocytes # (Manual) (1.0-4.8) k/uL Sodium (137-145) mmol/L BUN (9-20) mg/dL Glucose (74-99) mg/dL POC Glucose (mg/dL) 109 H 147 H 128 H (75-99) mg/dL Calcium (8.4-10.2) mg/dL Total Protein (6.3-8.2) g/dL Albumin (3.5-5.0) g/dL 05/25/16 05/25/16 05/25/16 Range/Units 08:29 08:29 12:10 WBC 18.9 H (3.8-10.6) k/uL MCHC 30.6 L (31.0-37.0) g/dL Plt Count 513 H (150-450) k/uL Neutrophils # (Manual) 17.0 H (1.3-7.7) k/uL Lymphocytes # (Manual) 0.9 L (1.0-4.8) k/uL Sodium 134 L (137-145) mmol/L BUN 37 H (9-20) mg/dL Glucose 204 H (74-99) mg/dL POC Glucose (mg/dL) 170 H (75-99) mg/dL Calcium 8.3 L (8.4-10.2) mg/dL Total Protein 4.7 L (6.3-8.2) g/dL Albumin 2.6 L (3.5-5.0) g/dL Microbiology - Last 24 Hours (Table) 05/22/16 16:36 Blood Culture - Preliminary Blood No Growth after 48 hours 05/22/16 16:07 Blood Culture - Preliminary Blood No Growth after 48 hours 05/19/16 00:21 Blood Culture Gram Stain - Final Blood Blood Culture - Final Streptococcus pneumoniae Assessment and Plan Plan: Assessment Community-acquired pneumonia with sepsis Acute respiratory failure secondary to pneumonia Paroxysmal Atrial fibrillation Indeterminate, Elevated troponins, cardiology following Congestive heart failure, likely diastolic B-cell lymphoma Diabetes mellitus Hypertension Plan patient could be cleared from a pulmonary standpoint for discharge. Medications have been reviewed and will be continued as ordered. patient did have a home assessment for oxygen and passed he will not require home oxygen. We will also continue to wean the patient down on steroids and continue to monitor blood sugars. Incentive spirometer has been initiated and will be encouraged. Infectious disease on consult and appreciate recommendations. We will continue to monitor labs/results and adjust treatment as necessary. I performed an examination of the patient and discussed their management with the nurse practitioner. I have reviewed the nurse practitioner's note and agree with the documented findings and plan of care.
[2016-05-25 15:00] VITALS: BP 112/70; PULSE 82; TEMP 96.8
[2016-05-25 17:00] LABS: Glucose,Whole Blood 176 mg/dL (75-99)
--- NOTE | 2016-05-25 20:41 | PN ---
DATE OF SERVICE: 05/25/2016 REASON FOR FOLLOWUP: Strep pneumoniae bacteremia. INTERVAL HISTORY: The patient is afebrile. He is feeling better. Breathing has improved. The patient denies significant chest pain. Occasional cough. No abdominal pain or diarrhea. On examination, blood pressure 112/70 with a pulse of 82, temperature 96.8. He is 96% on room air. General description is an elderly male up in the bed in no distress. RESPIRATORY SYSTEM: Unlabored breathing with decreased intensity of breath sounds. No wheeze. HEART: S1, S2. Regular rate and rhythm. ABDOMEN: Soft. No tenderness. LABS: White count is down to 18.9. Follow-up blood culture has been negative. DIAGNOSTIC IMPRESSION AND PLAN: Patient with Streptococcal pneumoniae bacteremia with pneumonia. Sputum also showing an MRSA with a question of possible colonization versus a pathogen. Plan at this time is to finish therapy with p.o. Zyvox 600 mg twice daily for another 10 to 11 days. Prescription has been sent to the pharmacy. Continue supportive care. RITO
--- NOTE | 2016-05-26 23:45 | DS ---
DATE OF ADMISSION: 05/19/2016 DATE OF DISCHARGE: 05/25/2016 CONSULTATIONS: 1. Pulmonary consultation. 2. ID consultation. DISCHARGE DIAGNOSES: 1. Acute hypoxic respiratory failure secondary to multifocal pneumonia, possibly secondary to suspected methicillin-resistant Staphylococcus aureus. 2. Sepsis secondary to above. 3. Diabetes, type 2, with hyperglycemia, uncontrolled due to steroids. 4. Hypertension. 5. B-cell lymphoma, status post surgical bone marrow transplant after induction chemotherapy. 6. Paroxysmal atrial fibrillation. Rate is controlled. Currently on anticoagulation with Eliquis. 7. Sinus tachycardia with multiple premature atrial contractions, present on admission, improved now. 8. Intermediate troponin, likely due to sepsis and tachycardia. 9. Acute on chronic congestive heart failure, systolic and diastolic dysfunction; ejection fraction 40% to 45%, improved now. 10. Methicillin-resistant Staphylococcus aureus septicemia, possible infection versus colonization. 11. Sputum cultures growing methicillin-resistant Staphylococcus aureus. 12. Leukocytosis, improving. 13. Mild to moderate protein-calorie malnutrition with albumin of 2.6. HOSPITAL COURSE: Mr. Phillips is a 70-year-old male with a known history of diabetes mellitus and B-cell lymphoma, currently in remission, admitted to the hospital with worsening shortness of breath and cough and productive sputum. He was found to have multifocal pneumonia. Blood cultures are growing MRSA and sputum cultures are growing MRSA as well. Patient was started on vancomycin and ceftriaxone. Patient did improve clinically. Patient is still having elevated WBC count, which has improved to 18 today. Otherwise, patient is clinically much improved now. The patient will be continued on antibiotics in the form of linezolid and continued on steroids, tapering dose. Insulin dosing has been adjusted during his hospital stay, which has been contributing to infection as well as steroids. Patient will complete an antibiotic course in the form of Zyvox/linezolid as per ID recommendations for the remaining 12 days. Patient is hemodynamically stable and is ready for discharge. DISCHARGE PHYSICAL EXAMINATION: [id number] male lying in bed comfortably. Awake, alert, oriented x3. Appears to be in no distress. VITALS: Blood pressure is 112/70, pulse 82, respirations 16, temperature afebrile. Pulse ox 96% on room air. HEENT: Atraumatic, normocephalic. Neck is supple. No JVD. CVS: S1, S2 heard. No murmurs. No gallop. LUNGS: Bilateral air entry is present. No wheezing. No crackles. Non-labored breathing. Decreased breath sounds at bases. ABDOMEN: Soft, nontender. Bowel sounds present. SCALE AGENT: Awake, alert and oriented x3. No focal deficit. EXTREMITIES: No edema. Pulses palpable bilaterally. No clubbing or cyanosis. PSYCHIATRIC: Cooperative. LABORATORY DATA: WBC 18.9, hemoglobin 13.9, platelets 513. Sodium 134, potassium 4.7, chloride 99, bicarb 26. BUN 37, creatinine 0.86. Albumin 2.6. Discharge physical examination done. Discharge medications include: 1. Lantus 35 units subcutaneously at bedtime. 2. Multivitamins 1 tablet p.o. daily. 3. Aspirin 81 p.o. daily. 4. [place] 5/325 one tablet p.o. daily p.r.n. for pain. 5. DuoNeb 3 mL inhalation q.i.d. p.r.n. 6. Lactolose 20 grams p.o. b.i.d. p.r.n. for constipation. 7. Potassium chloride 10 mEq p.o. daily. 8. Saw palmetto 1000 mg p.o. b.i.d. 9. Eliquis 5 mg p.o. b.i.d. 10. Pulmicort 0.5 mg inhalation RT b.i.d. 11. Lasix 40 mg p.o. b.i.d. 12. Insulin Lispro as per sliding scale. 13. Zyvox 600 mg p.o. q.12 hours; 20 tablets. 14. Metoprolol 50 mg p.o. b.i.d. 15. Prednisone tapering dose. Activity as tolerated. Heart-healthy and diabetic diet. Follow up with Dr. Angela Galindo in 1 to [address] Hi Urias in one week. Home with self-care.
== END 2016-05-25 18:03 | disposition home health service (06) | DRG 871 ==
LOC: EC 21:57 → 6SEL 05-19 00:19 → 4MS4W 05-24 17:43
PROVIDERS: ADMIT Hospitalist; ATTEND Hospitalist
DX: A41.02 Sepsis due to Methicillin resistant Staphylococcus aureus (principal); I50.43 Acute on chronic combined systolic (congestive) and diastolic (congestive) heart failure; J96.01 Acute respiratory failure with hypoxia; J15.212 Pneumonia due to Methicillin resistant Staphylococcus aureus; C85.10 Unspecified B-cell lymphoma, unspecified site; J10.08 Influenza due to other identified influenza virus with other specified pneumonia; Z94.84 Stem cells transplant status; E44.0 Moderate protein-calorie malnutrition; I11.0 Hypertensive heart disease with heart failure; J44.0 Chronic obstructive pulmonary disease with (acute) lower respiratory infection; J44.1 Chronic obstructive pulmonary disease with (acute) exacerbation; E11.65 Type 2 diabetes mellitus with hyperglycemia; I27.2 Other secondary pulmonary hypertension; E78.5 Hyperlipidemia, unspecified; I08.1 Rheumatic disorders of both mitral and tricuspid valves; I25.10 Atherosclerotic heart disease of native coronary artery without angina pectoris; I45.10 Unspecified right bundle-branch block; I48.0 Paroxysmal atrial fibrillation; I49.1 Atrial premature depolarization; K57.90 Diverticulosis of intestine, part unspecified, without perforation or abscess without bleeding; T38.0X5A Adverse effect of glucocorticoids and synthetic analogues, initial encounter; Y95 Nosocomial condition; Z79.02 Long term (current) use of antithrombotics/antiplatelets; Z79.4 Long term (current) use of insulin; Z79.899 Other long term (current) drug therapy; Z98.61 Coronary angioplasty status; Z79.82 Long term (current) use of aspirin
CPT/HCPCS: 36415; 71010; 71020; 71275; 74020; 74177; 80053; 80202; 82550; 82553; 83036; 83605; 83735; 83880; 84100; 84132; 84484; 85025; 85379; 85610; 85730; 87040; 87070; 87077; 87186; 87205; 87502; 93005; 93306; 94640; 94760; 96365; 96366; 96368; 96375; 96376; 99291

== ENCOUNTER → 2016-06-07 | Outpatient (CLI) | payer OTHER, MEDICARE, BC ==
--- NOTE | 2016-06-08 08:10 | XR ---
EXAMINATION TYPE: XR chest 2V DATE OF EXAM: 06/07/2016 11:25 AM COMPARISON: Prior chest x-ray 24 May 2016 HISTORY: Pneumonia, abnormal chest x-ray TECHNIQUE: Frontal and lateral views of the chest are obtained. FINDINGS: Similar findings are present. Postop changes noted in the cervical thoracic spine. There i s no evident pneumothorax. There is some blunting of the costophrenic angles and the heart is enlarge d. Pulmonary vascularity and kaley not significantly changed. Thickening is suspected. There are coron rome artery calcifications. Surgical clips are present in the right upper quadrant. Minimal patchy bas ilar density is present. IMPRESSION: There may be some basilar atelectasis, small associated pleural effusions. Correlate to exclude pneumonia. Follow-up as indicated.
== END ==
LOC: RADXRYALE 10:59
PROVIDERS: ATTEND Internal Medicine Sleep Medicine
DX: J18.9 Pneumonia, unspecified organism (principal)
CPT/HCPCS: 71020

== ENCOUNTER 2016-07-18 11:48 | Inpatient (IN) | payer BC, MEDICARE, OTHER ==
[2016-07-18] MEDS ORDERED: RX INFO: IV CONTRAST WAS GIVEN 1 EACH MISC MISCELLANE PRN (13:33)
[2016-07-18] MEDS ORDERED: SODIUM CHLORIDE 0.9% 500 ML IV STA (13:33)
[2016-07-18] MEDS ORDERED: SODIUM CHLORIDE 0.9% 1,000 ML IV STA (13:33)
[2016-07-18] MEDS ORDERED: MORPHINE SULFATE 4 MG/ML SYRINGE IV STA (13:33)
[2016-07-18] MEDS ORDERED: ONDANSETRON 4 MG/2 ML VIAL IVP STA (13:34)
[2016-07-18] MEDS ORDERED: FAMOTIDINE 20 MG/2 ML VIAL IV STA (13:34)
--- NOTE | 2016-07-18 13:37 | ED ---
General Adult HPI - General Chief complaint: Nausea/Vomiting/Diarrhea Stated complaint: Weakness, abd pain Time Seen by Provider: 07/18/16 13:09 Source: patient, family, RN notes reviewed Mode of arrival: ambulatory Limitations: no limitations - History of Present Illness Initial comments: Patient is a pleasant 71-year-old male presenting to the emergency department complaining of abdominal discomfort. Symptoms have been somewhat present over the past year however worse this past week. Patient is having multiple episodes of very small amounts of diarrhea gas. Patient has abdominal discomfort, more so on the left side. Patient has nausea and anorexia. No significant vomiting. Patient is scheduled for a colonoscopy next week. Patient does feel depressed however denies suicidal ideation. - Related Data Home Medications Medication Instructions Recorded Confirmed Insulin Glargine [Lantus] 35 unit SQ HS 04/13/16 07/18/16 Multivitamins, Thera [Multivitamin 1 tab PO DAILY 04/13/16 07/18/16 (formulary)] Aspirin EC [Ecotrin Low Dose] 81 mg PO DAILY 05/18/16 07/18/16 HYDROcodone/APAP 5-325MG [Tyro 1 tab PO DAILY PRN 05/18/16 07/18/16 5-325] Ipratropium-Albuterol Nebulize 3 ml INHALATION RT-QID PRN 05/18/16 07/18/16 [Duoneb 0.5 mg-3 mg/3 ml Soln] Lactulose 20 gm PO BID PRN 05/18/16 07/18/16 Potassium Chloride ER [K-Dur 10] 10 meq PO DAILY 05/18/16 07/18/16 Saw [place] 1,000 mg PO BID 05/18/16 07/18/16 Previous Rx's Medication Instructions Recorded Budesonide [Pulmicort] 0.5 mg INHALATION RT-BID 30 Days 05/25/16 Furosemide [Lasix] 40 mg PO BID@0900,1600 #60 tab 05/25/16 INSULIN LISPRO (humaLOG) [humaLOG See Protocol SQ ACHS #1 vial 05/25/16 (formulary)] Linezolid [Zyvox] 600 mg PO Q12H #20 tab 05/25/16 Metoprolol Tartrate [Lopressor] 50 mg PO BID #60 tab 05/25/16 Allergies Allergy/AdvReac Type Severity Reaction Status Date / Time No Known Allergies Allergy Verified 07/18/16 12:59 Review of Systems ROS Statement: Those systems with pertinent positive or pertinent negative responses have been documented in the HPI. ROS Other: All systems not noted in ROS Statement are negative. Constitutional: Denies: fever Eyes: Denies: eye pain ENT: Denies: ear pain Respiratory: Denies: cough Cardiovascular: Denies: chest pain Endocrine: Reports: fatigue Gastrointestinal: Reports: abdominal pain, nausea, diarrhea Genitourinary: Denies: urgency Musculoskeletal: Denies: back pain Skin: Denies: rash Neurological: Denies: weakness Psychiatric: Reports: depression. Denies: homicidal thoughts, suicidal thoughts Past Medical History Past Medical History: Cancer, Diabetes Mellitus, Hypertension, Pneumonia Additional Past Medical History / Comment(s): lymphoma 4 times. Has a history of histoplasmosis which required the lung resection at [facility] History of Any Multi-Drug Resistant Organisms: MRSA Date of last positivie culture/infection: 05/19/16 MDRO Source:: Sputum Past Surgical History: Cholecystectomy, Hernia Repair Additional Past Surgical History / Comment(s): stem cell transplant Past Anesthesia/Blood Transfusion Reactions: No Reported Reaction Past Psychological History: No Psychological Hx Reported Additional Psychological History / Comment(s): . 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 No experience. No international travel. No animal exposures Smoking Status: Never smoker Past Alcohol Use History: None Reported Past Drug Use History: None Reported - Past Family History Mother Family Medical History: Thyroid Disorder General Exam Limitations: no limitations General appearance: alert, in no apparent distress Head exam: Present: atraumatic Eye exam: Present: normal appearance, PERRL ENT exam: Present: normal oropharynx Neck exam: Present: normal inspection Respiratory exam: Present: normal lung sounds bilaterally Cardiovascular Exam: Present: regular rate, normal rhythm GI/Abdominal exam: Present: soft, tenderness (Mild to moderate left sided abdominal tenderness), hyperactive bowel sounds. Absent: distended, guarding, rebound, rigid, pulsatile mass Extremities exam: Present: normal inspection Neurological exam: Present: alert Psychiatric exam: Present: anxious. Absent: suicidal ideation Skin exam: Present: normal color Course Vital Signs 07/18/16 07/18/16 07/18/16 11:50 13:16 13:24 Temperature 98.5 F 98.9 F Pulse Rate 90 54 L Respiratory 20 18 Rate Blood Pressure 105/52 156/98 123/60 O2 Sat by Pulse 98 95 Oximetry 07/18/16 07/18/16 07/18/16 14:06 15:04 16:09 Temperature 99.5 F 100.2 F H Pulse Rate 111 H 57 L 54 L Respiratory 20 16 18 Rate Blood Pressure 107/55 111/56 97/49 O2 Sat by Pulse 98 95 95 Oximetry Medical Decision Making - Medical Decision Making Patient reevaluated and is somewhat improved. Patient and family updated on results and plan. Case was discussed in detail with Dr. Gonzalez, who will admit for Dr. Galindo. Patient does have borderline fever and possibility of sepsis. Diagnosed at 4:33 PM. IV antibiotics will be started. Blood cultures will be ordered. Lactic acid has been ordered. - Lab Data Result diagrams: 07/18/16 14:00 07/18/16 14:00 Lab Results 07/18/16 07/18/16 07/18/16 Range/Units 14:00 14:00 14:00 WBC 38.5 H* (3.8-10.6) k/uL RBC 4.63 (4.30-5.90) m/uL Hgb 13.2 (13.0-17.5) gm/dL Hct 40.3 (39.0-53.0) % MCV 86.9 D (80.0-100.0) fL MCH 28.4 (25.0-35.0) pg MCHC 32.7 (31.0-37.0) g/dL RDW 15.5 (11.5-15.5) % Plt Count 657 H (150-450) k/uL Neutrophils % (Manual) 71.5 % Band Neutrophils % 2.5 % Lymphocytes % (Manual) 16.0 % Monocytes % (Manual) 8.5 % Eosinophils % (Manual) 0.5 % Metamyelocytes % 1.0 % Neutrophils # (Manual) 28.5 H (1.3-7.7) k/uL Lymphocytes # (Manual) 6.2 H (1.0-4.8) k/uL Monocytes # (Manual) 3.3 H (0-1.0) k/uL Eosinophils # (Manual) 0.2 (0-0.7) k/uL Nucleated RBCs 0 (0-0) /100 WBC Manual Slide Review Performed Poikilocytosis Slight Anisocytosis (manual) Present Ovalocytes Present PT 12.3 H (9.0-12.0) sec INR 1.2 (<1.1) APTT 25.4 (22.0-30.0) sec Sodium 137 (137-145) mmol/L Potassium 4.1 (3.5-5.1) mmol/L Chloride 97 L (98-107) mmol/L Carbon Dioxide 27 (22-30) mmol/L Anion Gap 13 mmol/L BUN 17 (9-20) mg/dL Creatinine 0.93 (0.66-1.25) mg/dL Est GFR (MDRD) Af Amer >60 (>60 ml/min/1.73 sqM) Est GFR (MDRD) Non-Af >60 (>60 ml/min/1.73 sqM) Glucose 87 (74-99) mg/dL Calcium 9.0 (8.4-10.2) mg/dL Total Bilirubin 0.9 (0.2-1.3) mg/dL AST 37 (17-59) U/L ALT 37 (21-72) U/L Alkaline Phosphatase 97 (38-126) U/L Total Protein 5.6 L (6.3-8.2) g/dL Albumin 3.2 L (3.5-5.0) g/dL Amylase <30 L (30-110) U/L Lipase 25 (23-300) U/L - Radiology Data Radiology results: report reviewed (Computed tomography scan of the abdomen and pelvis shows concern for ascending, descending, and sigmoid colitis.) Disposition Clinical Impression: Acute colitis Disposition: ADMITTED IP TO THIS [facility] Referrals: Angela Galindo MD [Primary Care Provider] - 1-2 days
[2016-07-18 14:30] LABS: INR 1.2 (<1.1); Partial Thromboplastin Time 25.4 sec (22.0-30.0); Prothrombin Time 12.3 sec (9.0-12.0)
[2016-07-18 14:37] LABS: ALT 37 U/L (21-72); AST 37 U/L (17-59); Alkaline Phosphatase 97 U/L (38-126); Amylase <30 U/L (30-110); Anion Gap 13 mmol/L; Blood Urea Nitrogen 17 mg/dL (9-20); Carbon Dioxide 27 mmol/L (22-30); Chloride 97 mmol/L (98-107); Glucose 87 mg/dL (74-99); Non-African American GFR(MDRD) >60 (>60 ml/min/1.73 sqM); Potassium 4.1 mmol/L (3.5-5.1); Sodium 137 mmol/L (137-145); Total Bilirubin 0.9 mg/dL (0.2-1.3); Total Protein 5.6 g/dL (6.3-8.2)
[2016-07-18 14:41] LABS: Aty Lym Flag Slight; CH 29.4; CHCM 33.9; HCT 40.3 % (39.0-53.0); HDW 3.57; HGB 13.2 gm/dL (13.0-17.5); MCH 28.4 pg (25.0-35.0); MCHC 32.7 g/dL (31.0-37.0); MPO Flag Slight; Mean Platelet Volume 6.5; Poikilocytosis Slight; RBC 4.63 m/uL (4.30-5.90); RDW 15.5 % (11.5-15.5); WBC (Perox) 38.86
[2016-07-18 14:46] LABS: WBC 38.5 k/uL (3.8-10.6)
[2016-07-18 14:47] LABS: MCV 86.9 fL (80.0-100.0)
[2016-07-18 15:11] LABS: Add Differential Manual Differential
[2016-07-18 15:14] LABS: Band Neutrophils % 2.5 %; Nucleated Red Blood Cells 0 /100 WBC (0-0); Total Cells Counted 200
[2016-07-18 15:15] LABS: Manual Review Performed; Ovalocytes Present
--- NOTE | 2016-07-18 15:40 | CT ---
EXAMINATION TYPE: CT abdomen pelvis w con DATE OF EXAM: 07/18/2016 COMPARISON: 05/18/2016 INDICATION: Left lower quadrant pain and diarrhea. DLP: 1348.00 mGycm, Automated exposure control for dose reduction was used. CONTRAST: 100 mL of Omnipaque 300. Study performed without Oral Contrast TECHNIQUE: Axial images were obtained from above the diaphragm to the pubic rami in the axial plane a t 5 mm thick sections. Reconstructed images are reviewed on the computer in the coronal plane. FINDINGS: Limited CT sections are obtained the lung bases. Some pulmonary fibrosis appears to be present. Mini mal pleural effusions are present.. CT ABDOMEN: Liver: There may be a cyst within the medial right lobe liver near the ligamentum teres. Spleen: Normal. Splenule is at the hilum. Pancreas: Atrophic Adrenal glands: The adrenal glands are normal. Gallbladder: Surgically absent Kidneys: No masses are evident. No hydronephrosis is present. No cysts are present. Delayed images were obtained through the kidneys, which remain unremarkable. Aorta: Vascular calcification is within the aorta. Inferior vena cava: Normal. CT PELVIS: There is diffuse wall thickening through the ascending colon. Correlate for colitis. Some wall thicke sourav within the nondilated descending colon is also present. Correlate for colitis. This wall thicken ing continues to the sigmoid colon to the rectum. No dilated small bowel loops are evident. No focal obstruction is evident. Appendix: Normal as visualized. Urinary bladder: Incompletely distended. Urinary bladder is thick walled. Cystitis should be consider ed. Genitourinary structures: Prostate is within normal limits. Osseous structures: No suspicious lytic or sclerotic lesions. IMPRESSIONS: 1. Clinical correlation recommended for ascending, descending, and sigmoid colitis. Other etiologies could include ischemic bowel of the transverse colon is more normal appearance. No obstruction is ev ident. 2. Thickening of the urinary bladder wall. Correlate for cystitis or incomplete distention.
[2016-07-18] MEDS ORDERED: ACETAMINOPHEN TAB 325 MG TAB PO STA (16:12)
[2016-07-18] MEDS ORDERED: AMPICILLIN-SULBACTAM 3 GM in SODIUM CHLORIDE 0.9% 100 ML IVPB STA (16:41)
[2016-07-18] MEDS ORDERED: SODIUM CHLORIDE 0.9% 250 ML IV STA (16:46)
[2016-07-18] MEDS: SODIUM CHLORIDE 0.9% 500 ML IV SCH ×3 (17:32→19:45)
[2016-07-18] MEDS ORDERED: HYDROmorphone 1 MG/ML 1 ML SYRINGE IVP PRN (19:44)
[2016-07-18] MEDS: HYDROcodone/APAP 5-325MG 1 EACH TAB PO PRN (20:09)
[2016-07-18 20:34] LABS: Glucose,Whole Blood 81 mg/dL (75-99)
[2016-07-18] MEDS: INSULIN LISPRO (humaLOG) 300 UNIT/3 ML VIAL SQ SCH (21:02)
[2016-07-18] MEDS: INSULIN GLARGINE 100 UNIT/ML 10 ML VIAL SQ SCH (21:18)
[2016-07-18] MEDS: ACETAMINOPHEN TAB 325 MG TAB PO PRN (22:08)
[2016-07-18 23:10] LABS: Appearance,Urine Clear (Clear); Bilirubin,Urine Negative (Negative); Glucose,Urine (UA) Negative (Negative); Ketones,Urine Negative (Negative); Leukocyte Esterase,Urine Negative (Negative); Nitrite,Urine Negative (Negative); Particle Count 1735; Protein,Urine 1+ (Negative); RBC,Urine 1 /hpf (0-5); Squamous Epithelial Cell,Urine <1 /hpf (0-4); UA Billing (MACRO vs. MICRO) MICRO; Urobilinogen,Urine <2.0 mg/dL (<2.0); WBC,Urine 1 /hpf (0-5)
[2016-07-18] MEDS: AMPICILLIN-SULBACTAM 1.5 GM in SODIUM CHLORIDE 0.9% 50 ML IVPB SCH (23:56)
[2016-07-19 00:02] LABS: Specific Gravity,Urine >1.050 (1.001-1.035)
[2016-07-19] MEDS: AMPICILLIN-SULBACTAM 1.5 GM in SODIUM CHLORIDE 0.9% 50 ML IVPB SCH ×4 (06:05→23:20)
[2016-07-19 07:09] LABS: Glucose,Whole Blood 79 mg/dL (75-99)
[2016-07-19] MEDS: PANTOPRAZOLE 40 MG/10 ML VIAL IV SCH (07:25)
[2016-07-19] MEDS: ACETAMINOPHEN TAB 325 MG TAB PO PRN ×2 (07:26→18:01)
[2016-07-19] MEDS: INSULIN LISPRO (humaLOG) 300 UNIT/3 ML VIAL SQ SCH ×4 (07:26→21:55)
--- NOTE | 2016-07-19 08:37 | P.CON ---
Consult Note - . Consult date: 07/19/16 Assessment/Plan:: Thank you very much for asking me to see Mr. Phillips is known to me. I saw him within the last few weeks for evaluation for diarrhea. He was scheduled for colonoscopy later this week. He states his symptoms don't worsen terms of the more frequent loose bowel movements with some urgency. He did have the previously associated bright red blood with his bowel movements but that this has resolved since he stopped taking in adequate regular in the name of which she is not known at this time. His also been having some left-sided abdominal discomfort. He's had above symptoms for almost a year now but worse over the last week or so. Much nausea but no vomiting. Also anorexia. He has no taste for food. He presented to the emergency room last night. Was found to have a leukocytosis of 35,200. Hemoglobin is Normal. He otherwise is in no acute distress. Does have a history of lymphoma in the past treated on multiple occasions with chemotherapy and last time several years ago which stem cell transplant. Also has a history of chronic back pain. She takes [place] resident day. His computed tomography scan showed evidence of what looks like acute colitis with thickening and inflammation of his colon mostly in the ascending and descending and sigmoid colon. Past history positive for diabetes mellitus hypertension COPD back pain history of lymphoma. Surgery includes a partial lung resection for histoplasmosis hernia repair open cholecystectomy transplant medications at home include the Pulmicort Zyvox Lopressor insulin Lasix saw palmetto multivitamins baby aspirin , DuoNeb and [place]. ALLERGIES none known. Social history family history well-documented. Systems review as above. Has generalized weakness. Feels very tired and lethargic. Somewhat depressed at times. No definite urinary symptoms. Remainder of systems review otherwise unremarkable. No chest pain. Examination: Patient is well-built well-nourished in no acute distress. Temperature is 100.2. Vitals are stable. Weighs about the 93.5 kg. His membranes on the dry side. Color is good. Head and neck otherwise normal no lymphadenopathy. Heart regular rhythm no murmurs. Lungs are clear to P&A. Abdomen is mildly distended in the upper abdomen with little tympanism especially along his transverse colon. Some tenderness in the left the abdomen but no guarding or rebound or rigidity otherwise fairly soft. Has a long midline scar from his previous cholecystectomy. No hernias or masses or organomegaly noted. Extremities full motion [employer] EXEC[employer] grossly intact no focal deficits. Laboratory studies as above. Leukocytosis. Electrolytes normal. LFTs are normal. BUN/creatinine are normal. Stool studies are pending. Impression: Acute the colitis etiology undetermined. Rule out C. diff colitis. Rule out infectious colitis. Doubt ischemic the patient should be considered. Multiple medical issues as above. Mild dehydration. Chronic back pain. Hypertension. Diabetes.COPD. Recommendation agree with the current treatment with IV fluids antibiotics. We will await his stool studies. Recheck his WBC. When stabilized with the consider a colonoscopy hopefully on this admission. We'll be glad to follow him along with you.
[2016-07-19 10:11] LABS: Aty Lym Flag Slight; CH 29.2; HCT 33.4 % (39.0-53.0); HDW 3.51; HGB 10.6 gm/dL (13.0-17.5); MCH 27.9 pg (25.0-35.0); MCHC 31.6 g/dL (31.0-37.0); MCV 88.4 fL (80.0-100.0); Mean Platelet Volume 6.9; Poikilocytosis Slight; RBC 3.78 m/uL (4.30-5.90); RDW 15.7 % (11.5-15.5); WBC 23.4 k/uL (3.8-10.6); WBC (Perox) 24.95
[2016-07-19 10:30] LABS: Add Differential Manual Differential
[2016-07-19 10:34] LABS: Manual Review Performed; Nucleated Red Blood Cells 0 /100 WBC (0-0); Total Cells Counted 100
[2016-07-19 10:35] LABS: Crenated RBC Present; Toxic Granulation Present
[2016-07-19] MEDS: HYDROcodone/APAP 5-325MG 1 EACH TAB PO PRN (10:51)
[2016-07-19 11:38] LABS: Glucose,Whole Blood 108 mg/dL (75-99)
--- NOTE | 2016-07-19 12:49 | XR ---
EXAMINATION TYPE: XR chest 1V DATE OF EXAM: 07/19/2016 COMPARISON: 06/07/2016 HISTORY: Shortness of breath TECHNIQUE: Single frontal view of the chest is obtained. FINDINGS: Postsurgical changes are seen with evidence of cardiomegaly and small bilateral effusions with basilar atelectasis or infiltrate. Underlying COPD noted. No overt failure. No pneumothorax. Den sity along the left lung apex is stable may be related to previous surgical change but nonspecific. IMPRESSION: 1. COPD with small bilateral effusion and basilar atelectasis favored over infiltrate. No overt failu re.
--- NOTE | 2016-07-19 16:12 | HP ---
DATE OF ADMISSION: 07/18/2016 Patient is a 71-year-old came in with abdominal discomfort in the left lower quadrant with about 7/10 in severity, nonradiating, sharp pain. Patient came to ER. CT of the abdomen was done which showed suspicious colitis, diffusely in the hole of the colon and the patient apparently has left lower quadrant discomfort for a long time which is much worse for the last couple of days, along with multiple episodes of diarrhea about 6 episodes yesterday, without any blood in the stools and three episodes so far today morning. Clostridium difficile testing was ordered, the results of which are still pending. Patient denied any dysuria. The patient denied any fever, chills. Patient has leukocytosis with elevated WBC count of around 38,000 and patient was on Linezolid for MRSA pneumonia in month of May and patient completed the course of antibiotics. Patient is presently on Unasyn and he believes his symptoms of diarrhea did improve a little bit. Patient was started on IV fluids. Does have a history of congestive heart failure, ejection fraction of around 40 to 45%. Patient does have crackles and minimally elevated JVD on exam and saturating at 98%. I will obtain a chest x-ray and discontinue the IV fluids and patient will be started on oral Lasix. Patient apparently has history of atrial fibrillation, for which patient was on Eliquis. Because of GI bleed, Eliquis was discontinued by Dr. Angela Galindo as an outpatient, which is appropriate. The patient was complaining of some nausea. Denied any vomiting and patient is supposed to get a colonoscopy next week by Dr. Balbuena. Dr. Balbuena evaluated the patient here as well and he believes patient had some nonspecific colitis. Home medications include: 1. Glargine. 2. Multivitamin. 3. Aspirin. 4. Hydrocodone. 5. Acetaminophen. 6. Albuterol. 7. Ipratropium. 8. Lactulose. 9. Potassium chloride. 10. Stevo palmetto. 11. Budesonide. 12. Lasix. 13. Lispro. 14. Nasalide. 15. Metoprolol. ALLERGIES: No known drug allergies. REVIEW OF SYSTEMS: CONSTITUTIONAL: No fever, no malaise, no fatigue. HEENT: No recent visual problems or hearing problems. Denied any sore throat. CARDIOVASCULAR: No chest pain, orthopnea, PND, no palpitations, no syncope. PULMONARY: No shortness of breath, no cough, no hemoptysis. GASTROINTESTINAL: As described in HPI. NEUROLOGICAL: No headaches, no weakness, no numbness. HEMATOLOGICAL: Denies any bleeding or petechiae. GENITOURINARY: Denies any burning micturition, frequency, or urgency. MUSCULOSKELETAL/RHEUMATOLOGICAL: Denies any joint pain, swelling, or any muscle pain. ENDOCRINE: Denies any polyuria or polydipsia. The rest of the 14 point review of systems is negative. PAST MEDICAL HISTORY: Significant for lymphoma and patient is status post bone marrow transplant, diabetes mellitus, hypertension, pneumonia, MRSA pneumonia recently, cholecystectomy and hernia repair. FAMILY HISTORY: Mother had hypothyroidism. PHYSICAL EXAMINATION: VITAL SIGNS: Temperature 99.2., patient 24-hour T-max is 100.8 and blood pressure is 110/55, saturating at 98% on room air. GENERAL: The patient is alert and oriented x3, not in any acute distress. Well developed, well nourished. HEENT: Pupils are round and equally reacting to light. EOMI. No scleral icterus. No conjunctival pallor. Normocephalic, atraumatic. No pharyngeal erythema. No thyromegaly. CARDIOVASCULAR: S1 and S2 present. No murmurs, rubs, or gallops. PULMONARY: Bibasilar crackles are appreciated. Fairly good air entry into bilateral lung mathur. ABDOMEN: Soft, nontender, nondistended, normoactive bowel sounds. No palpable organomegaly. MUSCULOSKELETAL: No joint swelling or deformity. EXTREMITIES: No cyanosis, clubbing, or pedal edema. NEUROLOGICAL: Gross neurological examination did not reveal any focal deficits. SKIN: No rashes. Patient's lactic acid is only 0.9. LABORATORY DATA: CBC and BMP are abnormal for high WBC count 38,500 hemoglobin 10.6. ASSESSMENT AND PLAN: 1. Colitis. Clostridium difficile colitis needs to be ruled out. I do high suspicion for that. Until then, antibiotics will be continued. IV fluids will be discontinued. 2. Congestive heart failure chronic systolic dysfunction with minimal exacerbation. Patient will be started back on Lasix. IV fluids will be discontinued. 3. Sepsis secondary to possible colitis which appears to be infectious colitis. Clostridium difficile colitis needs to be ruled out as mentioned above. 4. Type 2 diabetes mellitus. 5. Hypertension. 6. 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 7. Paroxysmal atrial fibrillation, anticoagulation will be discontinued secondary to his recent gastrointestinal bleed. 8. Patient's blood sugars are fairly controlled at this point of time.
[2016-07-19] MEDS: FUROSEMIDE 40 MG TAB PO SCH (16:43)
[2016-07-19] MEDS: ONDANSETRON 4 MG/2 ML VIAL IVP PRN (16:51)
[2016-07-19 16:59] LABS: Glucose,Whole Blood 164 mg/dL (75-99)
[2016-07-19] MEDS: metroNIDAZOLE-NS PMX 500 MG in SALINE 1 100ML.BAG IVPB SCH (18:01)
[2016-07-19] MEDS: IPRATROPIUM-ALBUTEROL 3 ML NEB INHALATION PRN (19:32)
[2016-07-19] MEDS: BUDESONIDE 0.5 MG/2 ML NEBU INHALATION SCH (19:32)
[2016-07-19 20:12] LABS: Glucose,Whole Blood 120 mg/dL (75-99)
[2016-07-19] MEDS: METOPROLOL TARTRATE 50 MG TAB PO SCH (21:55)
[2016-07-19] MEDS: INSULIN GLARGINE 100 UNIT/ML 10 ML VIAL SQ SCH (21:55)
[2016-07-20] MEDS: metroNIDAZOLE-NS PMX 500 MG in SALINE 1 100ML.BAG IVPB SCH ×2 (00:12→08:00)
[2016-07-20] MEDS: HYDROcodone/APAP 5-325MG 1 EACH TAB PO PRN (02:56)
[2016-07-20] MEDS: AMPICILLIN-SULBACTAM 1.5 GM in SODIUM CHLORIDE 0.9% 50 ML IVPB SCH (05:38)
[2016-07-20] MEDS: ONDANSETRON 4 MG/2 ML VIAL IVP PRN ×2 (05:42→16:23)
[2016-07-20 07:26] LABS: Glucose,Whole Blood 112 mg/dL (75-99)
[2016-07-20] MEDS: IPRATROPIUM-ALBUTEROL 3 ML NEB INHALATION PRN (07:35)
[2016-07-20] MEDS: BUDESONIDE 0.5 MG/2 ML NEBU INHALATION SCH ×2 (07:35→20:53)
[2016-07-20] MEDS: INSULIN LISPRO (humaLOG) 300 UNIT/3 ML VIAL SQ SCH ×4 (07:57→21:14)
[2016-07-20] MEDS: METOPROLOL TARTRATE 50 MG TAB PO SCH ×2 (08:00→21:13)
[2016-07-20] MEDS: ASPIRIN 81 MG CHEW PO SCH ×2 (08:00→08:30)
[2016-07-20] MEDS: PANTOPRAZOLE 40 MG/10 ML VIAL IV SCH (08:01)
[2016-07-20] MEDS: FUROSEMIDE 40 MG TAB PO SCH ×2 (08:01→16:24)
[2016-07-20 08:11] LABS: CH 28.8; CHCM 31.6; HCT 35.8 % (39.0-53.0); HDW 3.36; HGB 11.4 gm/dL (13.0-17.5); Hypochromasia Moderate; MCH 29.2 pg (25.0-35.0); MCHC 31.9 g/dL (31.0-37.0); MCV 91.5 fL (80.0-100.0); RBC 3.91 m/uL (4.30-5.90); RDW 15.9 % (11.5-15.5)
[2016-07-20 08:13] LABS: Anion Gap 9 mmol/L; Calcium 8.2 mg/dL (8.4-10.2); Carbon Dioxide 23 mmol/L (22-30); Chloride 104 mmol/L (98-107); Glucose 104 mg/dL (74-99); Non-African American GFR(MDRD) >60 (>60 ml/min/1.73 sqM); Sodium 136 mmol/L (137-145)
[2016-07-20 08:14] LABS: WBC 26.6 k/uL (3.8-10.6)
[2016-07-20 08:15] LABS: Blood Urea Nitrogen 18 mg/dL (9-20); Potassium 3.7 mmol/L (3.5-5.1)
--- NOTE | 2016-07-20 08:42 | P.PN ---
Progress Note - Text The patient is fairly stable. Less frequency of his bowel movements. Was able to obtain a sample for C. diff studies last night. Studies are still pending. Mild abdominal pain well controlled. Had some dry heaves last night. On examination the patient is awake alert in no acute distress. Temperature is normal. Vitals are stable. Abdomen is soft with mild generalized tenderness. He feels the tenderness is more from the dry heaving last night. No guarding or rebound. Seems to be tender along his colon. WBC is slightly elevated the compared to yesterday up to 26,000. Electrolytes are normal. Impression; colitis probably secondary to C. diff. Stools studies are pending. Recommendation. Continue with the Flagyl. If stool studies are negative we will proceed with the colonoscopy.
[2016-07-20 12:21] LABS: Glucose,Whole Blood 192 mg/dL (75-99)
[2016-07-20] MEDS: CHERRY FLAVOR 60 ML BOTTLE PO SCH ×2 (12:52→18:19)
[2016-07-20] MEDS: VANCOMYCIN ORAL SOLUTION 250 MG/5 ML BOTTLE PO SCH ×2 (12:52→18:17)
[2016-07-20 17:39] LABS: Glucose,Whole Blood 195 mg/dL (75-99)
--- NOTE | 2016-07-20 18:51 | P.PN ---
Subjective Date of service 07/20/2016. Progress note being dictated for Dr. Deluna. Interval history: This a 71-year-old gentleman admitted with colitis, minimal acute congestive heart failure exacerbation, sepsis and multiple other medical issues. Initially had planned for colonoscopy but patient now testing positive for C. difficile colitis. Has had 2 loose brown bowel movements this morning. Flagyl and Unasyn discontinued, oral vancomycin initiated. Tolerating clear liquid diet with no nausea or vomiting. Mild abdominal pain. Denies chest pain , palpitations or increasing shortness of breath. Afebrile, T-max 99.8. WBC 26.6. Objective - Vital Signs Vital signs: Vital Signs Temp 97.8 F 07/20/16 14:45 Pulse 53 L 07/20/16 14:45 Resp 16 07/20/16 14:45 BP 111/56 07/20/16 14:45 Pulse Ox 94 L 07/20/16 14:45 Intake & Output 07/19/16 07/20/16 07/20/16 18:59 06:59 18:59 Intake Total 240 590 100 Balance 240 590 100 Weight 93.5 kg 76.521 kg Intake: Intake, IV Titration 100 Amount metroNIDAZOLE-NS PMX 500 100 mg In Saline 1 100ml.bag @ 100 mls/hr IVPB Q8HR [facility] Rx#:[id number] Oral 240 590 Other: Voiding Method Toilet Toilet Toilet Urinal Urinal Urinal # Voids 1 2 # Bowel Movements 1 - Exam PHYSICAL EXAM: VITAL SIGNS: As above GENERAL: [Sitting up in bed, no acute distress HEENT: [Pupils equal conjunctiva normal. No conjunctival pallor] NECK: [Supple, no JVD] RESPIRATORY EFFORT:[ Normal] LUNGS: [Diminished, bibasilar crackles, no rhonchi, no wheezing] CARDIOVASCULAR[ regular S1 and S2, no murmurs rubs or gallops, no edema] GI: [Abdomen soft, nontender, positive bowel sounds.] PSYCH: [Alert and oriented -3, mood and affect normal.] NEURO: No focal deficits - Labs CBC & Chem 7: 07/20/16 07:44 07/20/16 07:44 Labs: Abnormal Lab Results - Last 24 Hours (Table) 07/19/16 07/20/16 07/20/16 Range/Units 20:11 07:00 07:22 WBC (3.8-10.6) k/uL RBC (4.30-5.90) m/uL Hgb (13.0-17.5) gm/dL Hct (39.0-53.0) % RDW (11.5-15.5) % Plt Count (150-450) k/uL Sodium (137-145) mmol/L Glucose (74-99) mg/dL POC Glucose (mg/dL) 120 H 112 H (75-99) mg/dL Calcium (8.4-10.2) mg/dL C. difficile (EIA) Intrp Positive A (Negative) 07/20/16 07/20/16 07/20/16 Range/Units 07:44 07:44 12:17 WBC 26.6 H* (3.8-10.6) k/uL RBC 3.91 L (4.30-5.90) m/uL Hgb 11.4 L (13.0-17.5) gm/dL Hct 35.8 L (39.0-53.0) % RDW 15.9 H (11.5-15.5) % Plt Count 544 H (150-450) k/uL Sodium 136 L (137-145) mmol/L Glucose 104 H (74-99) mg/dL POC Glucose (mg/dL) 192 H (75-99) mg/dL Calcium 8.2 L (8.4-10.2) mg/dL C. difficile (EIA) Intrp (Negative) 07/20/16 Range/Units 17:19 WBC (3.8-10.6) k/uL RBC (4.30-5.90) m/uL Hgb (13.0-17.5) gm/dL Hct (39.0-53.0) % RDW (11.5-15.5) % Plt Count (150-450) k/uL Sodium (137-145) mmol/L Glucose (74-99) mg/dL POC Glucose (mg/dL) 195 H (75-99) mg/dL Calcium (8.4-10.2) mg/dL C. difficile (EIA) Intrp (Negative) Microbiology - Last 24 Hours (Table) 07/20/16 02:40 Stool Culture - Preliminary Stool 07/18/16 16:46 Blood Culture - Preliminary Blood No Growth after 24 hours Assessment and Plan Plan: 1. [ Acute C. difficile colitis]. 2. [ Mild acute on chronic congestive heart failure, systolic dysfunction]. 3. [ Sepsis secondary to] acute C. difficile colitis. 4. [ Diabetes mellitus type II]. 5. [ Hypertension]. 6. [ B cell lymphoma, status post bone marrow transplant]. 7. [ Proximal atrial fibrillation, anticoagulation discontinued secondary to recent GI bleed]. Plan: Continue on current medication regime , Lasix, monitoring and symptomatic treatment. Colonoscopy on hold as patient positive for acute C. difficile colitis. Current Antibiotics discontinued, oral vancomycin initiated. Close monitoring of electrolytes and CBC with repeat labs ordered for a.m. strict I&O' s, daily weights, maintain CHF pathway/protocol. further recommendations to follow. The impression and plan of care has been dictated as directed. : I performed a H&P examination of this patient and discussed the same with the dictator. I agree with the dictator's note. Any additional findings/opinions/ etc. will be noted.
[2016-07-20 20:42] LABS: Glucose,Whole Blood 171 mg/dL (75-99)
[2016-07-20] MEDS: INSULIN GLARGINE 100 UNIT/ML 10 ML VIAL SQ SCH (21:13)
[2016-07-21] MEDS: VANCOMYCIN ORAL SOLUTION 250 MG/5 ML BOTTLE PO SCH ×5 (00:17→23:24)
[2016-07-21] MEDS: CHERRY FLAVOR 60 ML BOTTLE PO SCH ×5 (00:17→23:24)
[2016-07-21 07:00] LABS: Glucose,Whole Blood 91 mg/dL (75-99)
--- NOTE | 2016-07-21 08:25 | P.PN ---
Progress Note - Text Patient feels somewhat depressed. Did like to have some regular food. His improved. States he only had 2 bowel movements yesterday. He is passing some flatus. Still has some abdominal discomfort. Stool cultures were positive for C. diff. On examination the patient is awake alert in no distress. Temperature is normal max at the 98.9. Vitals are stable. Abdomen is fairly soft minimal distention. No no guarding or rebound. There is mild diffuse tenderness mostly across the transverse colon. No mass or organomegaly. Laboratory studies are pending from this morning. Impression; C. diff colitis. Recommendation. Would recommend continuing with Flagyl in addition to the vancomycin. Advance his diet the. Continued medical management.
[2016-07-21] MEDS: INSULIN LISPRO (humaLOG) 300 UNIT/3 ML VIAL SQ SCH ×4 (08:27→20:38)
[2016-07-21] MEDS ORDERED: metroNIDAZOLE-NS PMX 500 MG in SALINE 1 100ML.BAG IVPB SCH (08:30)
[2016-07-21] MEDS: BUDESONIDE 0.5 MG/2 ML NEBU INHALATION SCH ×2 (08:54→21:17)
[2016-07-21] MEDS: PANTOPRAZOLE 40 MG/10 ML VIAL IV SCH (09:24)
[2016-07-21] MEDS: METOPROLOL TARTRATE 50 MG TAB PO SCH ×2 (09:24→20:38)
[2016-07-21] MEDS: FUROSEMIDE 40 MG TAB PO SCH ×2 (09:24→16:30)
[2016-07-21] MEDS: ASPIRIN 81 MG CHEW PO SCH (09:24)
[2016-07-21] MEDS: HYDROcodone/APAP 5-325MG 1 EACH TAB PO PRN (09:39)
[2016-07-21] MEDS ORDERED: KETOROLAC 30 MG/ML 1 ML VIAL IVP PRN (10:30)
[2016-07-21 11:39] LABS: Glucose,Whole Blood 109 mg/dL (75-99)
--- NOTE | 2016-07-21 11:53 | PN ---
Patient is admitted with C. difficile colitis and diarrhea improved and patient had one episode of diarrhea, but patient still does not feel good. Patient's abdomen is distended, sluggish bowel sounds and tympanic abdomen. There is a concern for ileus as well because of which I am discontinuing Dilaudid, although [place] will be continued. Will add ketorolac. As his kidney function is fairly okay, although the problem is mild cardiac dysfunction. Will watch him on ketorolac with close monitoring of kidney function and cardiac function. REVIEW OF SYSTEMS: CARDIOVASCULAR: No chest pain, no orthopnea, no PND, no palpitations. PULMONARY: Denied any shortness of breath. No cough or hemoptysis. GASTROINTESTINAL: As described in HPI. NEUROLOGIC: No headaches, no weakness, no numbness. Medications were reviewed. PHYSICAL EXAMINATION: VITAL SIGNS: Temperature 98.8, pulse of 80, respiratory rate of 16, blood pressure is 114/63, saturating at 92% on room air. GENERAL: The patient is alert and oriented x3, not in any acute distress. Well developed, well nourished. HEENT: Pupils are round and equally reacting to light. EOMI. No scleral icterus. No conjunctival pallor. Normocephalic, atraumatic. No pharyngeal erythema. No thyromegaly. CARDIOVASCULAR: S1 and S2 present. No murmurs, rubs, or gallops. LUNGS: Bibasilar crackles are still heard from atelectasis. ABDOMEN: Abdomen is distended, tympanic. Bowel sounds present, but sluggish. MUSCULOSKELETAL: No joint swelling or deformity. EXTREMITIES: No cyanosis, clubbing, or pedal edema. NEUROLOGICAL: Gross neurological examination did not reveal any focal deficits. SKIN: No rashes. LABORATORY DATA: None available from today. Electrolytes, basic metabolic profile, essentially within normal limits. The patient had leukocytosis from yesterday's labs. ASSESSMENT AND PLAN: 1. Acute Clostridium difficile colitis. Continue the vancomycin. 2. Congestive heart failure, chronic systolic dysfunction without any acute exacerbation at this point of time. Patient is euvolemic. 3. Diabetes mellitus type 2. 4. Hypertension. 5. B-cell lymphoma, status post bone marrow transplant. 6. Paroxysmal atrial fibrillation, anticoagulation was recently discontinued secondary to gastrointestinal bleed. Patient will be started on subcutaneous heparin for deep venous thrombosis prophylaxis. Protonix will be continued. Continue with antibiotics. Because of the concerns of congestive heart failure, we are not using any IV fluids at this point of time.
[2016-07-21] MEDS: HEPARIN SODIUM,PORCINE 5,000 UNIT/ML 1 ML VIAL SQ SCH ×2 (13:30→20:37)
[2016-07-21 17:36] LABS: Glucose,Whole Blood 172 mg/dL (75-99)
[2016-07-21] MEDS: INSULIN GLARGINE 100 UNIT/ML 10 ML VIAL SQ SCH (20:37)
[2016-07-21 20:44] LABS: Glucose,Whole Blood 176 mg/dL (75-99)
[2016-07-21] MEDS: IPRATROPIUM-ALBUTEROL 3 ML NEB INHALATION PRN (21:17)
[2016-07-22] MEDS: CHERRY FLAVOR 60 ML BOTTLE PO SCH ×4 (05:16→23:01)
[2016-07-22] MEDS: HYDROcodone/APAP 5-325MG 1 EACH TAB PO PRN ×2 (05:16→21:04)
[2016-07-22] MEDS: VANCOMYCIN ORAL SOLUTION 250 MG/5 ML BOTTLE PO SCH ×4 (05:16→23:01)
[2016-07-22] MEDS: ONDANSETRON 4 MG/2 ML VIAL IVP PRN (05:19)
[2016-07-22] MEDS: BUDESONIDE 0.5 MG/2 ML NEBU INHALATION SCH ×2 (07:20→21:36)
[2016-07-22] MEDS: IPRATROPIUM-ALBUTEROL 3 ML NEB INHALATION PRN ×2 (07:20→21:36)
[2016-07-22 07:40] LABS: Anisocytosis Slight; CHCM 32.3; HCT 34.4 % (39.0-53.0); HDW 3.37; HGB 10.9 gm/dL (13.0-17.5); Hypochromasia Slight; MCH 28.5 pg (25.0-35.0); MCHC 31.7 g/dL (31.0-37.0); Mean Platelet Volume 6.6; RBC 3.82 m/uL (4.30-5.90); RDW 16.4 % (11.5-15.5); WBC 15.8 k/uL (3.8-10.6)
[2016-07-22 07:51] LABS: Glucose,Whole Blood 121 mg/dL (75-99)
[2016-07-22 08:02] LABS: Anion Gap 8 mmol/L; Blood Urea Nitrogen 17 mg/dL (9-20); Carbon Dioxide 27 mmol/L (22-30); Chloride 101 mmol/L (98-107); Glucose 116 mg/dL (74-99); Non-African American GFR(MDRD) >60 (>60 ml/min/1.73 sqM); Potassium 3.1 mmol/L (3.5-5.1); Sodium 136 mmol/L (137-145)
[2016-07-22] MEDS: INSULIN LISPRO (humaLOG) 300 UNIT/3 ML VIAL SQ SCH ×4 (08:24→20:41)
[2016-07-22] MEDS: HEPARIN SODIUM,PORCINE 5,000 UNIT/ML 1 ML VIAL SQ SCH ×2 (08:25→21:01)
[2016-07-22] MEDS: METOPROLOL TARTRATE 50 MG TAB PO SCH ×2 (08:25→22:16)
[2016-07-22] MEDS: FUROSEMIDE 40 MG TAB PO SCH ×2 (08:25→17:19)
[2016-07-22] MEDS: PANTOPRAZOLE 40 MG TABLET PO SCH (08:25)
[2016-07-22] MEDS: ASPIRIN 81 MG CHEW PO SCH (08:25)
[2016-07-22] MEDS ORDERED: Potassium Replacement Protocol 1 EACH MISC MISCELLANE PRN (08:45)
[2016-07-22] MEDS: POTASSIUM CHLORIDE 10 MEQ, LIDOCAINE 2% INJ 10 MG in SODIUM CHLORIDE 0.9% 100 ML IV SCH ×2 (09:05→10:16)
[2016-07-22] MEDS: POTASSIUM CHLORIDE ER 20 MEQ TAB.ER PO SCH ×2 (09:05→10:16)
[2016-07-22 11:46] LABS: Glucose,Whole Blood 184 mg/dL (75-99)
[2016-07-22 12:07] VITALS: BMI 26.2
--- NOTE | 2016-07-22 15:32 | PN ---
Patient is admitted with C. diff colitis, improved symptoms at this point of time, although patient denies any improvement. The patient had 2 bowel movements today. Patient did pass gas and patient's pain is well controlled with ketorolac and [place]. Patient does have good bowel sounds. REVIEW OF SYSTEMS: GASTROINTESTINAL: As described in HPI. CARDIOVASCULAR: No chest pain, no orthopnea, no PND, no palpitations. PULMONARY: Denied any shortness of breath. No cough or hemoptysis. NEUROLOGIC: No headaches, no weakness, no numbness. Medications were reviewed. Additional potassium will be supplemented. PHYSICAL EXAMINATION: VITAL SIGNS: Temperature 98.4, pulse of 72, respiratory rate of 18, blood pressure is 103/56, saturating at 97% on room air. ABDOMINAL EXAMINATION: Minimally distended, good bowel sounds. GENERAL: The patient is alert and oriented x3, not in any acute distress. Well developed, well nourished. HEENT: Pupils are round and equally reacting to light. EOMI. No scleral icterus. No conjunctival pallor. Normocephalic, atraumatic. No pharyngeal erythema. No thyromegaly. CARDIOVASCULAR: S1 and S2 present. No murmurs, rubs, or gallops. PULMONARY: Chest is clear to auscultation, no wheezing or crackles. MUSCULOSKELETAL: No joint swelling or deformity. EXTREMITIES: No cyanosis, clubbing, or pedal edema. NEUROLOGICAL: Gross neurological examination did not reveal any focal deficits. SKIN: No rashes. LABORATORY DATA: Leukocytosis improved to 15,800 from 26,000. ASSESSMENT AND PLAN: 1. Acute Clostridium difficile colitis. Continue with oral vancomycin. 2. Congestive heart failure, chronic systolic dysfunction with minimal exacerbation on admission. Patient is fairly euvolemic at this point of time. 3. Type 2 diabetes mellitus. 4. Hypertension. 5. B-cell lymphoma. 6. Paroxysmal atrial fibrillation. Rate controlled at this point of time. Patient was on anticoagulation, which was discontinued secondary to chronic colitis and gastrointestinal bleeds. PLAN: Continue with oral vancomycin. Continue with close clinical monitoring, no IV fluids because of concerns of heart failure exacerbation. Patient's EF is 40% to 45%.
[2016-07-22 17:09] LABS: Glucose,Whole Blood 107 mg/dL (75-99)
[2016-07-22 20:29] LABS: Glucose,Whole Blood 125 mg/dL (75-99)
[2016-07-22] MEDS: INSULIN GLARGINE 100 UNIT/ML 10 ML VIAL SQ SCH (21:00)
[2016-07-23] MEDS: CHERRY FLAVOR 60 ML BOTTLE PO SCH (05:10)
[2016-07-23] MEDS: VANCOMYCIN ORAL SOLUTION 250 MG/5 ML BOTTLE PO SCH (05:10)
[2016-07-23 07:15] LABS: CH 28.7; CHCM 33.1; HCT 33.5 % (39.0-53.0); HDW 3.71; HGB 10.9 gm/dL (13.0-17.5); Hypochromasia Slight; MCH 28.2 pg (25.0-35.0); MCHC 32.4 g/dL (31.0-37.0); MCV 87.1 fL (80.0-100.0); Mean Platelet Volume 6.8; Poikilocytosis Slight; RBC 3.85 m/uL (4.30-5.90); RDW 15.7 % (11.5-15.5); WBC 8.9 k/uL (3.8-10.6)
[2016-07-23] MEDS: BUDESONIDE 0.5 MG/2 ML NEBU INHALATION SCH (07:17)
[2016-07-23] MEDS: IPRATROPIUM-ALBUTEROL 3 ML NEB INHALATION PRN (07:17)
[2016-07-23 07:26] LABS: Glucose,Whole Blood 154 mg/dL (75-99)
[2016-07-23] MEDS: HEPARIN SODIUM,PORCINE 5,000 UNIT/ML 1 ML VIAL SQ SCH (07:37)
[2016-07-23] MEDS: INSULIN LISPRO (humaLOG) 300 UNIT/3 ML VIAL SQ SCH (07:38)
[2016-07-23] MEDS: PANTOPRAZOLE 40 MG TABLET PO SCH (07:38)
[2016-07-23] MEDS: METOPROLOL TARTRATE 50 MG TAB PO SCH (07:38)
[2016-07-23] MEDS: ASPIRIN 81 MG CHEW PO SCH (07:38)
[2016-07-23] MEDS: FUROSEMIDE 40 MG TAB PO SCH (07:38)
[2016-07-23 07:59] LABS: Anion Gap 11 mmol/L; Blood Urea Nitrogen 14 mg/dL (9-20); Calcium 8.1 mg/dL (8.4-10.2); Carbon Dioxide 22 mmol/L (22-30); Chloride 103 mmol/L (98-107); Glucose 131 mg/dL (74-99); Non-African American GFR(MDRD) >60 (>60 ml/min/1.73 sqM); Potassium 3.5 mmol/L (3.5-5.1); Sodium 136 mmol/L (137-145)
[2016-07-23 08:05] VITALS: BP 105/57; PULSE 84; RESP 18; TEMP 97.6
[2016-07-23 11:40] LABS: Glucose,Whole Blood 109 mg/dL (75-99)
--- NOTE | 2016-07-24 12:59 | DS ---
DATE OF ADMISSION: 07/18/2016 DATE OF DISCHARGE: 07/23/2016 Patient is admitted with Clostridium difficile colitis. Patient had significant improvement in pain. Patient had one bowel movement which is solid and patient appears to be getting constipated at this point of time. Patient does have fairly good bowel sounds. Patient will be discharged. Will be given lactulose on p.r.n. basis for constipation. The patient is going to take [place] for pain. Patient's other multiple medical issues, which are fairly stable. The patient was seen and examined on the day of discharge. Vitals are stable. PHYSICAL EXAMINATION: GENERAL: The patient is alert and oriented x3, not in any acute distress. Well developed, well nourished. HEENT: Pupils are round and equally reacting to light. EOMI. No scleral icterus. No conjunctival pallor. Normocephalic, atraumatic. No pharyngeal erythema. No thyromegaly. CARDIOVASCULAR: S1 and S2 present. No murmurs, rubs, or gallops. PULMONARY: Chest is clear to auscultation, no wheezing or crackles. ABDOMEN: Soft, nontender, nondistended, normoactive bowel sounds. No palpable organomegaly. MUSCULOSKELETAL: No joint swelling or deformity. EXTREMITIES: No cyanosis, clubbing, or pedal edema. NEUROLOGICAL: Gross neurological examination did not reveal any focal deficits. SKIN: No rashes. LABORATORY DATA: Improved WBC count of 8,900 from 35,000. Improved kidney function. ASSESSMENT AND PLAN: 1. Acute Clostridium difficile colitis, improved with oral vancomycin. Patient will be discharged on 10 more days of oral vancomycin. 2. Congestive heart failure, chronic systolic dysfunction with acute exacerbation. 3. Type 2 diabetes mellitus. 4. Hypertension. 5. B-cell lymphoma. 6. Paroxysmal atrial fibrillation, rate controlled off anticoagulation because of gastrointestinal bleed. 7. Recently completed antibiotic therapy with Nasalide for MRSA pneumonia. Patient will be discharged to follow with Dr. Balbuena in about a week and Dr. Angela Galindo in 3 to 7 days. Activity as tolerated. Cardiac and diabetic 1800 calorie diet. I spent greater than 35 minutes in total discharge process. His ejection fraction is 40 to 45%. CHF discharge instructions will be provided. The patient is euvolemic at this point of time.
[2016-07-26 02:20] LABS: Cryptosporidium parvum Not detected (Not detected); Isospora belli Not detected (Not detected); Microsporidium Not detected (Not detected); Routine Ova and Parasites Not detected
== END 2016-07-23 12:39 | disposition home or self-care (01) | DRG 871 ==
LOC: EC 11:48 → 5MS5E 17:16
PROVIDERS: ADMIT Internal Medicine; ATTEND Internal Medicine
DX: A41.9 Sepsis, unspecified organism (principal); I50.23 Acute on chronic systolic (congestive) heart failure; A04.7 Enterocolitis due to Clostridium difficile; Z94.81 Bone marrow transplant status; C85.10 Unspecified B-cell lymphoma, unspecified site; E11.9 Type 2 diabetes mellitus without complications; I48.0 Paroxysmal atrial fibrillation; J44.9 Chronic obstructive pulmonary disease, unspecified; E86.0 Dehydration; G89.29 Other chronic pain; I11.0 Hypertensive heart disease with heart failure; Z79.01 Long term (current) use of anticoagulants; Z79.4 Long term (current) use of insulin; Z79.899 Other long term (current) drug therapy
CPT/HCPCS: 36415; 71010; 74177; 80048; 80053; 81001; 82150; 83605; 83690; 84132; 85025; 85027; 85610; 85730; 87040; 87045; 87046; 87177; 87207; 87209; 87324; 93005; 94640; 96361; 96374; 96375; 99285

== ENCOUNTER 2016-08-29 06:47 | Day surgery (SDC) | payer OTHER, MEDICARE ==
[2016-08-25 09:38] VITALS: BMI 26.6
[~2016-08-29 06:47] MED LIST: LACTATED RINGERS 1,000 ML IV SCH; LIDOCAINE 1% 20 ML VIAL (10MG/ML) FOR IV START INTRADERMA PRN
[2016-08-29 07:12] VITALS: TEMP 97.1
[2016-08-29 07:17] LABS: Glucose,Whole Blood 62 mg/dL (75-99)
[2016-08-29] MEDS ORDERED: DEXTROSE 50%-WATER 50 ML SYRINGE IVP STA (07:21)
[2016-08-29] MEDS ORDERED: DEXTROSE 50%-WATER 50 ML SYRINGE IVP ONE (07:24)
[2016-08-29] MEDS ORDERED: PROPOFOL 10 MG/ML 20 ML VIAL IV ONE (07:35)
[2016-08-29 07:42] LABS: Glucose,Whole Blood 97 mg/dL (75-99)
[2016-08-29 08:14] VITALS: RESP 16
--- NOTE | 2016-08-29 08:16 | P.OP ---
Date of Procedure: 08/29/16 Preoperative Diagnosis: Recent diarrhea. Postoperative Diagnosis: 1 colon polyps 3. mid descending colon polyp. Distal ascending colon polyp. Mild diverticulosis. Procedure(s) Performed: Colonoscopy and snare polypectomy 5 Implants: Anesthesia: MAC Surgeon: Enrico Balbuena Estimated Blood Loss (ml): 0 Pathology: other (Colon polyps 5) Condition: stable Disposition: same day Indications for Procedure: Recent diarrhea consistent with the C. diff colitis about 2 months ago. Now resolved. Operative Findings: Proximal ascending colon polyps 3 each about 4 mm in diameter. The mid descending colon polyp about the 4 mm in diameter. Distal ascending colon polyp about 3 mm in diameter. Mild diverticulosis. Description of Procedure: Informed consent was obtained procedure having being explained to the patient including potential complication particular bleeding and perforation. He understood and agree to proceed. With the patient in the left lateral position rectal digital examination was normal there are no palpable masses. No prostatic masses. The video colonoscope was inserted transanally and advanced all the way to the cecum which was entered without visualized. Procedure was somewhat difficult because of tortuosity and redundancy especially when trying to get to the cecum which was eventually accomplished. The mucosa were thoroughly examined. Findings 1. 3 polyps in the proximal ascending colon adjacent to the ileocecal valve area. Each about 3-4 mm in diameter already removed completely with the snare cautery with good hemostasis with the bases being cauterized. 2 minute ascending colon polyp about 4 mm in diameter and this was removed completely with the snare cautery with good hemostasis. 3 there was a distal ascending colon polyp close to the hepatic flexure that was removed completely with the snare cautery with good hemostasis. 4 mild diverticulosis. The patient tolerated procedure well without any evident complication. Recommendation may resume his normal diet the diabetic. Should the probably have another colonoscopy in about 3 years in view of multiple polyps.
[2016-08-29 08:18] LABS: Glucose,Whole Blood 74 mg/dL (75-99)
[2016-08-29 08:33] VITALS: BP 114/60; PULSE 66
== END 2016-08-29 09:06 | disposition home or self-care (01) ==
LOC: ORWHC2ENDO 06:47
PROVIDERS: ATTEND Surgery
DX: Z12.11 Encounter for screening for malignant neoplasm of colon (principal); D12.4 Benign neoplasm of descending colon; D12.2 Benign neoplasm of ascending colon; K57.30 Diverticulosis of large intestine without perforation or abscess without bleeding; Q43.8 Other specified congenital malformations of intestine; Z87.19 Personal history of other diseases of the digestive system; E11.9 Type 2 diabetes mellitus without complications; I25.10 Atherosclerotic heart disease of native coronary artery without angina pectoris; J45.909 Unspecified asthma, uncomplicated; I10 Essential (primary) hypertension; Z95.5 Presence of coronary angioplasty implant and graft; Z79.02 Long term (current) use of antithrombotics/antiplatelets; Z79.82 Long term (current) use of aspirin; Z79.899 Other long term (current) drug therapy; Z79.4 Long term (current) use of insulin
CPT/HCPCS: 88305; 45385; J2704

== ENCOUNTER 2016-10-27 10:10 | Emergency (ER) | payer OTHER, MEDICARE, BC ==
[2016-10-27] MEDS ORDERED: SODIUM CHLORIDE 0.9% 1,000 ML IV STA (10:34)
--- NOTE | 2016-10-27 10:37 | ED ---
General Adult HPI - General Chief complaint: Recheck/Abnormal Lab/Rx Stated complaint: ABNORMAL LABS, NOT FEELING RIGHT Time Seen by Provider: 10/27/16 10:18 Source: patient, RN notes reviewed Mode of arrival: wheelchair Limitations: no limitations - History of Present Illness Initial comments: Patient is a pleasant 71-year-old male presenting to the emergency Department with abnormal labs. Patient states he has felt lightheaded for the past 3-4 days. Patient saw his doctor and have blood work done. Patient received a call telling him his white blood cell count was elevated and he should be further evaluated. Patient admits to having sinus congestion and occasional yellow drainage. No weakness. No confusion. No cough or dyspnea. No abdominal discomfort except for his mild chronic abdominal discomfort on the left side. No dysuria or hematuria. No fever. - Related Data Home Medications Medication Instructions Recorded Confirmed Insulin Glargine [Lantus] 30 unit SQ HS 04/13/16 10/27/16 Multivitamins, Thera [Multivitamin 1 tab PO DAILY 04/13/16 10/27/16 (formulary)] Albuterol Sulfate [Accuneb] 1.25 - 2.5 mg INHALATION RT-Q6H PRN 08/25/16 Furosemide [Lasix] 40 mg PO BID 08/25/16 10/27/16 Metoprolol Tartrate [Lopressor] 25 mg PO BID 08/25/16 10/27/16 Aspirin [Adult Low Dose Aspirin EC] 81 mg PO DAILY 10/27/16 10/27/16 Potassium Chloride [K-Tab ER] 20 meq PO DAILY 10/27/16 10/27/16 Pravastatin Sodium [Pravachol] 40 mg PO DAILY 10/27/16 10/27/16 metroNIDAZOLE [Flagyl] 500 mg PO Q8H 10/27/16 10/27/16 Previous Rx's Medication Instructions Recorded Azithromycin [Zithromax Z-pack] 250 mg PO DIRECTED #6 tab 10/27/16 Allergies Allergy/AdvReac Type Severity Reaction Status Date / Time No Known Allergies Allergy Verified 08/25/16 09:10 Review of Systems ROS Statement: Those systems with pertinent positive or pertinent negative responses have been documented in the HPI. ROS Other: All systems not noted in ROS Statement are negative. Constitutional: Denies: fever, chills Eyes: Denies: eye pain ENT: Reports: congestion. Denies: ear pain Respiratory: Denies: cough, dyspnea Cardiovascular: Denies: chest pain Endocrine: Denies: fatigue Gastrointestinal: Reports: abdominal pain (Chronic, unchanged) Genitourinary: Denies: dysuria Musculoskeletal: Denies: back pain Skin: Denies: rash Neurological: Denies: weakness Past Medical History Past Medical History: Coronary Artery Disease (CAD), Cancer, Diabetes Mellitus, Hypertension, Pneumonia Additional Past Medical History / Comment(s): lymphoma 4 times / LEFT SIDE OF ABDOMEN -PAIN. Has a history of histoplasmosis which required the lung resection -HAS SOME SOB History of Any Multi-Drug Resistant Organisms: C-DIFF, MRSA Date of last positivie culture/infection: POSSIBLE MAY 2016 MDRO Source:: Sputum Past Surgical History: Cholecystectomy, Heart Catheterization With Stent, Hernia Repair Additional Past Surgical History / Comment(s): stem cell transplant/ LUNG RESECTION Past Anesthesia/Blood Transfusion Reactions: No Reported Reaction Date of Last Stent Placement:: 01-10-2013 Past Psychological History: No Psychological Hx Reported Smoking Status: Never smoker - Past Family History Mother Family Medical History: No Reported History General Exam Limitations: no limitations General appearance: alert, in no apparent distress Head exam: Present: atraumatic Eye exam: Present: normal appearance, PERRL, EOMI. Absent: nystagmus ENT exam: Present: normal oropharynx Neck exam: Present: normal inspection. Absent: tenderness, meningismus Respiratory exam: Present: normal lung sounds bilaterally Cardiovascular Exam: Present: regular rate, normal rhythm GI/Abdominal exam: Present: soft. Absent: tenderness Extremities exam: Present: normal inspection Neurological exam: Present: alert, oriented X3, CN II-XII intact. Absent: motor sensory deficit Expanded Speech: Present: fluid speech Cranial nerves: EOM's Intact: Normal Motor strength exam: RUE: 5, LUE: 5, RLE: 5, LLE: 5 Eye Response: (4) open spontaneously Motor Response: (6) obeys commands Verbal Response: (5) oriented Psychiatric exam: Present: normal affect, normal mood Skin exam: Present: normal color Course Vital Signs 10/27/16 10/27/16 10:12 11:41 Temperature 97.2 F L Pulse Rate 88 78 Respiratory 17 19 Rate Blood Pressure 126/66 135/72 O2 Sat by Pulse 96 100 Oximetry EKG Findings - EKG Comments: EKG Findings:: Normal sinus rhythm 80. GA 170. QRS 104. QT 380. QTC 438. Right axis. Incomplete right bundle-branch block. Left posterior fascicular block. Inferior Q waves. Septal Q waves. No acute ST change. Medical Decision Making - Medical Decision Making Patient reevaluated and resting comfortably in bed. Patient is updated on results. Patient is comfortable with discharge home and updated on need for close follow-up. - Lab Data Result diagrams: 10/27/16 10:40 10/27/16 10:40 Lab Results 10/27/16 10/27/16 10/27/16 Range/Units 10:40 10:40 10:40 WBC 12.8 H (3.8-10.6) k/uL RBC 4.56 (4.30-5.90) m/uL Hgb 13.4 (13.0-17.5) gm/dL Hct 38.5 L (39.0-53.0) % MCV 84.4 (80.0-100.0) fL MCH 29.3 (25.0-35.0) pg MCHC 34.7 (31.0-37.0) g/dL RDW 15.2 (11.5-15.5) % Plt Count 332 (150-450) k/uL Neutrophils % (Manual) 78 % Lymphocytes % (Manual) 21 % Monocytes % (Manual) 1 % Neutrophils # (Manual) 9.98 H (1.3-7.7) k/uL Lymphocytes # (Manual) 2.69 (1.0-4.8) k/uL Monocytes # (Manual) 0.13 (0-1.0) k/uL Nucleated RBCs 0 (0-0) /100 WBC Manual Slide Review Performed Poikilocytosis (manual Present PT (9.0-12.0) sec INR (<1.2) APTT (22.0-30.0) sec Sodium 138 (137-145) mmol/L Potassium 3.6 (3.5-5.1) mmol/L Chloride 102 (98-107) mmol/L Carbon Dioxide 26 (22-30) mmol/L Anion Gap 10 mmol/L BUN 20 (9-20) mg/dL Creatinine 0.92 (0.66-1.25) mg/dL Est GFR (MDRD) Af Amer >60 (>60 ml/min/1.73 sqM) Est GFR (MDRD) Non-Af >60 (>60 ml/min/1.73 sqM) Glucose 198 H (74-99) mg/dL Plasma Lactic Acid Ko (0.7-2.0) mmol/L Calcium 8.9 (8.4-10.2) mg/dL Phosphorus 2.8 (2.5-4.5) mg/dL Magnesium 1.7 (1.6-2.3) mg/dL Total Bilirubin 0.3 (0.2-1.3) mg/dL AST 22 (17-59) U/L ALT 27 (21-72) U/L Alkaline Phosphatase 52 (38-126) U/L Total Creatine Kinase 37 L (55-170) U/L CK-MB (CK-2) 1.2 (0.0-2.4) ng/mL CK-MB (CK-2) Rel Index 3.2 Troponin I <0.012 (0.000-0.034) ng/mL Total Protein 5.3 L (6.3-8.2) g/dL Albumin 3.2 L (3.5-5.0) g/dL Urine Color Urine Appearance (Clear) Urine pH (5.0-8.0) Ur Specific [place] (1.001-1.035) Urine Protein (Negative) Urine Glucose (UA) (Negative) Urine Ketones (Negative) Urine Blood (Negative) Urine Nitrite (Negative) Urine Bilirubin (Negative) Urine Urobilinogen (<2.0) mg/dL Ur Leukocyte Esterase (Negative) Urine RBC (0-5) /hpf Urine WBC (0-5) /hpf Ur Squamous Epith Cells (0-4) /hpf Urine Bacteria (None) /hpf Hyaline Casts (0-2) /lpf Urine Mucus (None) /hpf 10/27/16 10/27/16 10/27/16 Range/Units 10:40 10:40 11:42 WBC (3.8-10.6) k/uL RBC (4.30-5.90) m/uL Hgb (13.0-17.5) gm/dL Hct (39.0-53.0) % MCV (80.0-100.0) fL MCH (25.0-35.0) pg MCHC (31.0-37.0) g/dL RDW (11.5-15.5) % Plt Count (150-450) k/uL Neutrophils % (Manual) % Lymphocytes % (Manual) % Monocytes % (Manual) % Neutrophils # (Manual) (1.3-7.7) k/uL Lymphocytes # (Manual) (1.0-4.8) k/uL Monocytes # (Manual) (0-1.0) k/uL Nucleated RBCs (0-0) /100 WBC Manual Slide Review Poikilocytosis (manual PT 10.7 (9.0-12.0) sec INR 1.1 (<1.2) APTT 26.6 (22.0-30.0) sec Sodium (137-145) mmol/L Potassium (3.5-5.1) mmol/L Chloride (98-107) mmol/L Carbon Dioxide (22-30) mmol/L Anion Gap mmol/L BUN (9-20) mg/dL Creatinine (0.66-1.25) mg/dL Est GFR (MDRD) Af Amer (>60 ml/min/1.73 sqM) Est GFR (MDRD) Non-Af (>60 ml/min/1.73 sqM) Glucose (74-99) mg/dL Plasma Lactic Acid Ko 1.5 (0.7-2.0) mmol/L Calcium (8.4-10.2) mg/dL Phosphorus (2.5-4.5) mg/dL Magnesium (1.6-2.3) mg/dL Total Bilirubin (0.2-1.3) mg/dL AST (17-59) U/L ALT (21-72) U/L Alkaline Phosphatase (38-126) U/L Total Creatine Kinase (55-170) U/L CK-MB (CK-2) (0.0-2.4) ng/mL CK-MB (CK-2) Rel Index Troponin I (0.000-0.034) ng/mL Total Protein (6.3-8.2) g/dL Albumin (3.5-5.0) g/dL Urine Color Yellow Urine Appearance Clear (Clear) Urine pH 6.5 (5.0-8.0) Ur Specific [place] 1.014 (1.001-1.035) Urine Protein Trace H (Negative) Urine Glucose (UA) Negative (Negative) Urine Ketones Negative (Negative) Urine Blood Negative (Negative) Urine Nitrite Negative (Negative) Urine Bilirubin Negative (Negative) Urine Urobilinogen <2.0 (<2.0) mg/dL Ur Leukocyte Esterase Small H (Negative) Urine RBC <1 (0-5) /hpf Urine WBC 1 (0-5) /hpf Ur Squamous Epith Cells <1 (0-4) /hpf Urine Bacteria Rare H (None) /hpf Hyaline Casts 1 (0-2) /lpf Urine Mucus Occasional H (None) /hpf - Radiology Data Radiology results: image reviewed (Chest x-ray shows new right upper lobe airspace disease suspicious for pneumonia.) Disposition Clinical Impression: Community acquired pneumonia Disposition: ADMITTED IP TO THIS HOSP Condition: Stable Instructions: Pneumonia (ED) Additional Instructions: Please follow-up with your primary care physician in the next day or 2 for recheck. Return for difficulty breathing, fevers, weakness, worsening symptoms or other concerns. Prescriptions: Azithromycin [Zithromax Z-pack] 250 mg PO DIRECTED #6 tab Referrals: Angela Galindo MD [Primary Care Provider] - 1-2 days Time of Disposition: 12:47
[2016-10-27 11:12] LABS: ALT 27 U/L (21-72); AST 22 U/L (17-59); Alkaline Phosphatase 52 U/L (38-126); Anion Gap 10 mmol/L; Blood Urea Nitrogen 20 mg/dL (9-20); Calcium 8.9 mg/dL (8.4-10.2); Carbon Dioxide 26 mmol/L (22-30); Chloride 102 mmol/L (98-107); Glucose 198 mg/dL (74-99); Magnesium 1.7 mg/dL (1.6-2.3); Non-African American GFR(MDRD) >60 (>60 ml/min/1.73 sqM); Phosphorous 2.8 mg/dL (2.5-4.5); Potassium 3.6 mmol/L (3.5-5.1); Sodium 138 mmol/L (137-145); Total Bilirubin 0.3 mg/dL (0.2-1.3); Total Protein 5.3 g/dL (6.3-8.2)
[2016-10-27 11:18] LABS: INR 1.1 (<1.2); Partial Thromboplastin Time 26.6 sec (22.0-30.0); Prothrombin Time 10.7 sec (9.0-12.0)
[2016-10-27 11:27] LABS: Creatine Kinase 37 U/L (55-170)
[2016-10-27 11:31] LABS: Aty Lym Flag Slight; CH 29.1; CHCM 34.6; HCT 38.5 % (39.0-53.0); HDW 3.06; HGB 13.4 gm/dL (13.0-17.5); MCH 29.3 pg (25.0-35.0); MCHC 34.7 g/dL (31.0-37.0); MCV 84.4 fL (80.0-100.0); MPO Flag Slight; Mean Platelet Volume 6.8; RBC 4.56 m/uL (4.30-5.90); RDW 15.2 % (11.5-15.5); WBC 12.8 k/uL (3.8-10.6); WBC (Perox) 13.02
--- NOTE | 2016-10-27 11:39 | XR ---
EXAMINATION TYPE: XR chest 2V DATE OF EXAM: 10/27/2016 COMPARISON: 07/19/2016 HISTORY: Weakness TECHNIQUE: Frontal and lateral views of the chest are obtained. FINDINGS: New right upper lobe opacity is seen elevating the right minor fissure. No evidence of pne umothorax or pleural effusion. Cardiomegaly, chronic interstitial prominence, partial visualization of thoracic lumbar fusion rods a nd ventricular screws, and mild degenerative changes of the thoracic spine are unchanged from the sandra or. IMPRESSION: New right lobe airspace disease suspicious for pneumonia.
[2016-10-27 11:40] LABS: Creatine Kinase MB 1.2 ng/mL (0.0-2.4); Troponin I <0.012 ng/mL (0.000-0.034)
--- NOTE | 2016-10-27 11:40 | CT ---
EXAMINATION TYPE: CT brain wo con DATE OF EXAM: 10/27/2016 COMPARISON: 05/06/2015 HISTORY: Patient complains of weakness and leukocytosis. CT DLP: 1025 mGycm Automated exposure control for dose reduction was used. FINDINGS: There is moderate generalized degenerative change. There is faint periventricular and white matter ar eas of hypoattenuation which are nonspecific. No midline shift or acute hemorrhage. No mass effect. Atherosclerotic change of the vasculature noted . Changes of chronic sinusitis. IMPRESSION: DEGENERATIVE AND NONSPECIFIC WHITE MATTER CHANGE. IF THERE IS CONCERN FOR ACUTE ISCHEMIA THAN MRI REC OMMENDED.
[2016-10-27] MEDS ORDERED: SODIUM CHLORIDE 0.9% 500 ML IV STA (11:42)
[2016-10-27 11:48] LABS: Add Differential Manual Differential
[2016-10-27 11:50] LABS: Manual Review Performed; Nucleated Red Blood Cells 0 /100 WBC (0-0); Total Cells Counted 100
[2016-10-27 12:05] LABS: Appearance,Urine Clear (Clear); Bacteria,Urine Rare /hpf; Bilirubin,Urine Negative (Negative); Glucose,Urine (UA) Negative (Negative); Ketones,Urine Negative (Negative); Leukocyte Esterase,Urine Small (Negative); Mucus,Urine Occasional /hpf; Nitrite,Urine Negative (Negative); PH, Urine 6.5 (5.0-8.0); Particle Count 2579; Protein,Urine Trace (Negative); RBC,Urine <1 /hpf (0-5); Specific Gravity,Urine 1.014 (1.001-1.035); Squamous Epithelial Cell,Urine <1 /hpf (0-4); UA Billing (MACRO vs. MICRO) MICRO; Urobilinogen,Urine <2.0 mg/dL (<2.0); WBC,Urine 1 /hpf (0-5)
[2016-10-27] MEDS ORDERED: AZITHROMYCIN 500 MG TAB PO STA (12:46)
[2016-10-27 13:13] VITALS: BP 126/76; PULSE 80; RESP 18; TEMP 97
== END 2016-10-27 13:13 | disposition other institution (70) ==
LOC: EC 10:10
DX: J18.9 Pneumonia, unspecified organism (principal); I25.10 Atherosclerotic heart disease of native coronary artery without angina pectoris; E11.9 Type 2 diabetes mellitus without complications; I10 Essential (primary) hypertension; R40.2142 Coma scale, eyes open, spontaneous, at arrival to emergency department; R40.2252 Coma scale, best verbal response, oriented, at arrival to emergency department; R40.2362 Coma scale, best motor response, obeys commands, at arrival to emergency department; Z85.79 Personal history of other malignant neoplasms of lymphoid, hematopoietic and related tissues; Z86.14 Personal history of Methicillin resistant Staphylococcus aureus infection; Z95.5 Presence of coronary angioplasty implant and graft; Z79.4 Long term (current) use of insulin; Z79.82 Long term (current) use of aspirin; Z79.899 Other long term (current) drug therapy
CPT/HCPCS: 36415; 70450; 71020; 80053; 81001; 82550; 82553; 83605; 83735; 84100; 84484; 85025; 85610; 85730; 87040; 87086; 93005; 96360; 96361; 99284

== ENCOUNTER 2016-11-01 16:28 | Inpatient (IN) | payer OTHER, MEDICARE, BC ==
[2016-11-01] MEDS ORDERED: ACETAMINOPHEN TAB 500 MG TAB PO STA (16:53)
--- NOTE | 2016-11-01 16:58 | ED ---
General Adult HPI - General Chief complaint: Weakness Stated complaint: Cannot stand, cough Time Seen by Provider: 11/01/16 16:47 Source: patient, family, RN notes reviewed, old records reviewed Mode of arrival: wheelchair Limitations: no limitations - History of Present Illness Initial comments: 71-year-old male presents for evaluation of cough, fever, and generalized weakness. Patient was seen in the emergency department 4 days ago. At that time patient had weakness, he was sent in for elevated white blood cell Oh. Chest x-ray at that time did show right upper lobe pneumonia, patient had no cough at that time. He was treated with azithromycin as an outpatient. Patient presents today for reevaluation of generalized weakness, and fever. He does report a productive cough. He has been taking his azithromycin as prescribed. He has past medical history of bilateral pneumonia with prolonged ICU stay several years ago. Patient denies abdominal pain, denies vomiting or diarrhea. Does report some nausea. Denies dysuria. Patient has a rash on his right middle back, this has been present for 7-10 days. - Related Data Home Medications Medication Instructions Recorded Confirmed Insulin Glargine [Lantus] 30 unit SQ HS 04/13/16 11/01/16 Multivitamins, Thera [Multivitamin 1 tab PO DAILY 04/13/16 11/01/16 (formulary)] Albuterol Sulfate [Accuneb] 1.25 - 2.5 mg INHALATION RT-Q6H PRN 08/25/16 Furosemide [Lasix] 40 mg PO BID 08/25/16 11/01/16 Metoprolol Tartrate [Lopressor] 25 mg PO BID 08/25/16 11/01/16 Aspirin [Adult Low Dose Aspirin EC] 81 mg PO DAILY 10/27/16 11/01/16 Potassium Chloride [K-Tab ER] 10 meq PO BID 10/27/16 11/01/16 Pravastatin Sodium [Pravachol] 40 mg PO DAILY 10/27/16 11/01/16 metroNIDAZOLE [Flagyl] 500 mg PO Q8H 10/27/16 11/01/16 Allergies Allergy/AdvReac Type Severity Reaction Status Date / Time No Known Allergies Allergy Verified 11/01/16 17:16 Review of Systems ROS Statement: Those systems with pertinent positive or pertinent negative responses have been documented in the HPI. ROS Other: All systems not noted in ROS Statement are negative. Past Medical History Past Medical History: Coronary Artery Disease (CAD), Cancer, Diabetes Mellitus, Hypertension, Pneumonia Additional Past Medical History / Comment(s): lymphoma 4 times / LEFT SIDE OF ABDOMEN -PAIN. Has a history of histoplasmosis which required the lung resection -HAS SOME SOB History of Any Multi-Drug Resistant Organisms: C-DIFF, MRSA Date of last positivie culture/infection: POSSIBLE MAY 2016 MDRO Source:: Sputum Past Surgical History: Cholecystectomy, Heart Catheterization With Stent, Hernia Repair Additional Past Surgical History / Comment(s): stem cell transplant/ LUNG RESECTION Past Anesthesia/Blood Transfusion Reactions: No Reported Reaction Date of Last Stent Placement:: 01-10-2013 Past Psychological History: No Psychological Hx Reported Smoking Status: Never smoker Past Alcohol Use History: None Reported Past Drug Use History: None Reported - Past Family History Mother Family Medical History: No Reported History General Exam Limitations: no limitations General appearance: alert, in distress Head exam: Present: atraumatic, normocephalic Eye exam: Present: normal appearance, PERRL, EOMI. Absent: scleral icterus, conjunctival injection ENT exam: Present: mucous membranes dry, other (No pharyngeal erythema) Neck exam: Present: normal inspection. Absent: tenderness, meningismus Respiratory exam: Present: rhonchi. Absent: respiratory distress Cardiovascular Exam: Present: normal rhythm, tachycardia GI/Abdominal exam: Present: soft. Absent: distended, tenderness Extremities exam: Present: normal inspection, normal capillary refill. Absent: pedal edema Back exam: Present: rash noted (Herpetic rash noted on the right midthoracic region) Neurological exam: Present: alert, oriented X3. Absent: motor sensory deficit Psychiatric exam: Present: normal affect, normal mood Skin exam: Present: warm, dry, rash. Absent: cyanosis, diaphoretic Course Vital Signs 11/01/16 11/01/16 16:45 17:39 Temperature 100.8 F H 101.1 F H Pulse Rate 115 H 105 H Respiratory 20 22 Rate Blood Pressure 98/60 106/58 O2 Sat by Pulse 93 L 94 L Oximetry EKG Findings - EKG Comments: EKG Findings:: EKG shows sinus tachycardia with PVCs, incomplete right bundle- branch block, ventricular rate 107,. 162, QRS duration 100, QTC 464 unchanged compared to EKG from October 27 Medical Decision Making - Medical Decision Making 71-year-old male presenting with cough, fever, generalized weakness. Patient was diagnosed with pneumonia 4 days prior. Instructed on azithromycin. At that time patient stable vital signs, normal white blood cell count. Today patient presents with fever, tachycardia tachypnea hypoxia and low blood pressure. Laboratory studies reveal white blood cell count of 30.6, platelets are reactive at 470. Lactic acid is normal 1.4. Patient sees IV hydration with improvement vital signs. Chest x-ray does show bilateral pneumonia, stable exam on the right, increased left lower lobe pneumonia compared to 4 days ago. Patient is started on IV antibiotics for community-acquired pneumonia. Blood culture and sputum cultures are obtained Diagnosis: Sepsis, community-acquired pneumonia - Lab Data Result diagrams: 11/01/16 17:20 11/01/16 17:20 Lab Results 11/01/16 11/01/16 11/01/16 Range/Units 17:20 17:20 17:20 WBC 30.6 H* (3.8-10.6) k/uL RBC 4.39 (4.30-5.90) m/uL Hgb 12.6 L (13.0-17.5) gm/dL Hct 38.2 L (39.0-53.0) % MCV 87.1 (80.0-100.0) fL MCH 28.8 (25.0-35.0) pg MCHC 33.0 (31.0-37.0) g/dL RDW 15.1 (11.5-15.5) % Plt Count 470 H (150-450) k/uL PT (9.0-12.0) sec INR (<1.2) APTT (22.0-30.0) sec Sodium 134 L (137-145) mmol/L Potassium 3.6 (3.5-5.1) mmol/L Chloride 100 (98-107) mmol/L Carbon Dioxide 22 (22-30) mmol/L Anion Gap 12 mmol/L BUN 16 (9-20) mg/dL Creatinine 1.00 (0.66-1.25) mg/dL Est GFR (MDRD) Af Amer >60 (>60 ml/min/1.73 sqM) Est GFR (MDRD) Non-Af >60 (>60 ml/min/1.73 sqM) Glucose 234 H (74-99) mg/dL Plasma Lactic Acid Ko 1.4 (0.7-2.0) mmol/L Calcium 8.7 (8.4-10.2) mg/dL Total Bilirubin 0.5 (0.2-1.3) mg/dL AST 22 (17-59) U/L ALT 33 (21-72) U/L Alkaline Phosphatase 63 (38-126) U/L Total Protein 4.8 L (6.3-8.2) g/dL Albumin 2.8 L (3.5-5.0) g/dL 11/01/16 Range/Units 17:20 WBC (3.8-10.6) k/uL RBC (4.30-5.90) m/uL Hgb (13.0-17.5) gm/dL Hct (39.0-53.0) % MCV (80.0-100.0) fL MCH (25.0-35.0) pg MCHC (31.0-37.0) g/dL RDW (11.5-15.5) % Plt Count (150-450) k/uL PT 12.4 H (9.0-12.0) sec INR 1.3 H (<1.2) APTT 27.6 (22.0-30.0) sec Sodium (137-145) mmol/L Potassium (3.5-5.1) mmol/L Chloride (98-107) mmol/L Carbon Dioxide (22-30) mmol/L Anion Gap mmol/L BUN (9-20) mg/dL Creatinine (0.66-1.25) mg/dL Est GFR (MDRD) Af Amer (>60 ml/min/1.73 sqM) Est GFR (MDRD) Non-Af (>60 ml/min/1.73 sqM) Glucose (74-99) mg/dL Plasma Lactic Acid Ko (0.7-2.0) mmol/L Calcium (8.4-10.2) mg/dL Total Bilirubin (0.2-1.3) mg/dL AST (17-59) U/L ALT (21-72) U/L Alkaline Phosphatase (38-126) U/L Total Protein (6.3-8.2) g/dL Albumin (3.5-5.0) g/dL Critical Care Time Critical Care Time: Yes Total Critical Care Time: 35 Disposition Clinical Impression: Sepsis, Community acquired pneumonia Disposition: ADMITTED IP TO THIS [facility] Condition: Serious Referrals: Angela Galindo MD [Primary Care Provider] - 1-2 days Decision to Admit Reason: Admit from EC Decision Date: 11/01/16 Decision Time: 18:29
[2016-11-01] MEDS: SODIUM CHLORIDE 0.9% 500 ML IV SCH ×2 (17:33→18:30)
[2016-11-01 17:54] LABS: INR 1.3 (<1.2); Partial Thromboplastin Time 27.6 sec (22.0-30.0); Prothrombin Time 12.4 sec (9.0-12.0)
[2016-11-01 17:58] LABS: ALT 33 U/L (21-72); AST 22 U/L (17-59); Alkaline Phosphatase 63 U/L (38-126); Anion Gap 12 mmol/L; Blood Urea Nitrogen 16 mg/dL (9-20); Calcium 8.7 mg/dL (8.4-10.2); Carbon Dioxide 22 mmol/L (22-30); Chloride 100 mmol/L (98-107); Glucose 234 mg/dL (74-99); Non-African American GFR(MDRD) >60 (>60 ml/min/1.73 sqM); Potassium 3.6 mmol/L (3.5-5.1); Sodium 134 mmol/L (137-145); Total Bilirubin 0.5 mg/dL (0.2-1.3); Total Protein 4.8 g/dL (6.3-8.2)
--- NOTE | 2016-11-01 18:04 | XR ---
EXAMINATION TYPE: XR chest 2V DATE OF EXAM: 11/01/2016 COMPARISON: 10/27/2016 HISTORY: Fever TECHNIQUE: Frontal and lateral views of the chest are obtained. FINDINGS: There is no focal air space opacity, pleural effusion, or pneumothorax seen. The cardiac silhouette there is patchy bilateral pulmonary infiltrates and worse in the left lower lobe. There is no gross heart failure. There are paraspinal rods fusing the upper thoracic spine. There are chest l brielle. There is slight blunting of costophrenic angles. Size is within normal limits. The osseous st ructures are intact. IMPRESSION: Bilateral pulmonary infiltrates are increased compared to last exam especially in the le ft lower lobe. No heart failure. Cardiomegaly. This is consistent with pneumonia.
[2016-11-01 18:07] LABS: Aty Lym Flag Moderate; CHCM 33.3; HCT 38.2 % (39.0-53.0); HDW 2.87; HGB 12.6 gm/dL (13.0-17.5); MCH 28.8 pg (25.0-35.0); MCV 87.1 fL (80.0-100.0); MPO Flag Slight; Mean Platelet Volume 6.6; RBC 4.39 m/uL (4.30-5.90); RDW 15.1 % (11.5-15.5)
[2016-11-01 18:13] LABS: WBC 30.6 k/uL (3.8-10.6)
[2016-11-01] MEDS ORDERED: SODIUM CHLORIDE 0.9% 1,000 ML IV ONE (18:21)
[2016-11-01] MEDS ORDERED: AZITHROMYCIN 500 MG in SODIUM CHLORIDE 0.9% 250 ML IVPB STA (18:22)
[2016-11-01] MEDS ORDERED: NALOXONE 0.4 MG/ML 1 ML VIAL IV PRN (18:36)
[2016-11-01] MEDS ORDERED: ACETAMINOPHEN TAB 325 MG TAB PO PRN (18:36)
[2016-11-01 18:42] LABS: Add Differential Manual Differential
[2016-11-01] MEDS: SODIUM CHLORIDE 0.9% 1,000 ML IV SCH (18:43)
[2016-11-01 18:44] LABS: Nucleated Red Blood Cells 0 /100 WBC (0-0); Total Cells Counted 100
[2016-11-01 18:45] LABS: Manual Review Performed
[2016-11-01 19:32] LABS: Glucose,Whole Blood 167 mg/dL (75-99)
[2016-11-01 19:57] VITALS: BMI 31.3
[2016-11-01 20:43] LABS: Appearance,Urine Clear (Clear); Bilirubin,Urine Negative (Negative); Glucose,Urine (UA) Negative (Negative); Ketones,Urine Negative (Negative); Leukocyte Esterase,Urine Negative (Negative); Nitrite,Urine Negative (Negative); Protein,Urine Trace (Negative); UA Billing (MACRO vs. MICRO) CHEM; Urobilinogen,Urine <2.0 mg/dL (<2.0)
[2016-11-01] MEDS ORDERED: ALPRAZolam 0.25 MG TAB PO PRN (21:06)
[2016-11-01] MEDS: FUROSEMIDE 40 MG TAB PO SCH (21:17)
[2016-11-01] MEDS: METOPROLOL TARTRATE 25 MG TAB PO SCH (21:17)
[2016-11-01] MEDS: INSULIN GLARGINE 100 UNIT/ML 10 ML VIAL SQ SCH (21:17)
[2016-11-01] MEDS: TEMAZEPAM 15 MG CAP PO PRN (21:17)
--- NOTE | 2016-11-01 21:39 | HP ---
HISTORY AND PHYSICAL DATE OF SERVICE: 11/01/2016 CHIEF COMPLAINTS: Weakness, tiredness, cough and pneumonia. HISTORY OF PRESENT ILLNESS: This 71-year-old gentleman with a past medical history of multiple medical problems, including history of CAD, history of CHF, history diabetes mellitus, history of lymphoma as well as history of MRSA being followed by Dr. Galindo in outpatient setting having cough and fever and other symptoms. About a few days ago, the patient went to emergency room. Patient was given antibiotics and steroids. The patient went home, but subsequently patient had significant weakness, tiredness and also increasing cough and sputum. The patient apparently had bilateral pneumonia previously and with prolonged ICU stay. The patient came to [facility]. White count was elevated and chest x-ray showed bilateral pulmonary infiltrate and the patient admitted for further evaluation and treatment. There is no history of any headache, loss consciousness, seizures. No history of hematochezia or melena at this time. PAST MEDICAL HISTORY: History of CAD, diabetes mellitus, hypertension, history of pneumonia, history of lymphoma, history of CAD with stent. MEDICATIONS PRIOR TO ADMISSION INCLUDE HOME MEDICATIONS: 1. Pravachol 40 mg p.o. daily. 2. Lantus 30 units subcu q.h.s. 4. Flagyl 500 mg p.o. q.8. 5. K-Dur via ER 10 mEq p.o. b.i.d. 6. Multivitamins 1 p.o. daily. 7. Lopressor 25 mg p.o. b.i.d. 8. Lasix 40 mg p.o. b.i.d. 9. Ecotrin 81 mg p.o. daily. ALLERGIES: None. FAMILY HISTORY: No history of heart disease or strokes in the family. SOCIAL HISTORY: No history of smoking. No history of alcohol. REVIEW OF SYSTEMS: ENT: Diminished hearing. Diminished vision. CARDIOVASCULAR: No angina or palpitations. RESPIRATORY: As mentioned earlier. GI: As mentioned earlier. : No dysuria, hematuria. NERVOUS: No numbness or weakness. ALLERGY/IMMUNOLOGY: No asthma or hay fever. MUSCULOSKELETAL: As mentioned earlier. HEMATOLOGY/ONCOLOGY: No history of anemia. Lymphoma. ENDOCRINE: Diabetes mellitus. CONSTITUTIONAL: As mentioned earlier. DERMATOLOGY: Negative. RHEUMATOLOGY: Negative. PSYCHIATRY: As mentioned earlier. PHYSICAL EXAMINATION: The patient is alert and oriented alert and oriented x3. Pulse is 90, blood pressure is 107/58, respirations 20, temperature 98 degrees, pulse ox 94% on 2L. HEENT: Conjunctivae normal. Oral mucosa moist. NECK: No jugular venous distention. No carotid bruit. No thyroid enlargement. CARDIOVASCULAR: S1, S2 muffled. No S3, no S4. RESPIRATORY: Breath sounds diminished at the bases. Bilateral scattered rhonchi and coarse crackles. Respiration present on the left base is worse on the right base. ABDOMEN: Soft, nontender. No mass palpable. LEGS: No edema. No swelling. NERVOUS SYSTEM: Higher functions as mentioned earlier. Moves all 4 limbs. No focal motor or sensory deficits. LYMPHATICS: No lymphadenopathy in neck, axillae or groin. SKIN: No ulcer, rash, bleeding. LABS: At this time, chest x-ray personally reviewed by me showed bilateral infiltrate , left more than the right. Other labs are WBC 30.6 and INR 1.3. Sodium 134. ASSESSMENT: 1. Bilateral pneumonia and sepsis present on admission. 2. History of Clostridium difficile colitis. 3. Increased WBC. 4. Anemia, normocytic. 5. History of degenerative joint disease and back surgery. 6. History of coronary artery disease. 7. History of congestive heart failure. 8. History of diabetes. 9. History of hypertension. 10.History of pneumonia. 11.History of lymphoma. 12.History of methicillin-resistant Staphylococcus aureus. 13.History of cholecystectomy. 14.History of coronary artery disease with stent. 15.FULL CODE. RECOMMENDATIONS AND DISCUSSION: In this 71-year-old gentleman who presented with multiple complex medical issues , we will monitor the patient closely. Continue the current management and symptomatic treatment. Will initiate broad-spectrum IV antibiotics. Flagyl will be continued. Accu-Cheks a.c. and at bedtime, bronchodilators. Pulmonary as well as Infectious Disease evaluation. Guarded prognosis because of multiple complex medical issues. Further recommendations to follow. A copy of the dictation will be forwarded to Dr. Galindo, who is the primary physician. MMODL / IJN: [id number] / MTDD
[2016-11-01] MEDS: metroNIDAZOLE 500 MG TAB PO SCH (22:55)
[2016-11-01] MEDS: POTASSIUM CHLORIDE ER 10 MEQ TAB.ER.PRT PO SCH (22:56)
[2016-11-01] MEDS: valACYclovir 500 MG TAB PO SCH (22:56)
[2016-11-01] MEDS: INSULIN LISPRO (humaLOG) 300 UNIT/3 ML VIAL SQ SCH (22:56)
[2016-11-02] MEDS ORDERED: ALBUTEROL NEBULIZED 2.5 MG/3 ML INHALATION PRN (02:02)
[2016-11-02 05:53] LABS: Glucose,Whole Blood 94 mg/dL (75-99)
[2016-11-02] MEDS: FUROSEMIDE 40 MG TAB PO SCH ×2 (06:29→19:00)
[2016-11-02] MEDS: INSULIN LISPRO (humaLOG) 300 UNIT/3 ML VIAL SQ SCH ×4 (06:30→20:51)
[2016-11-02 06:53] LABS: Aty Lym Flag Moderate; CH 28.9; CHCM 32.4; HCT 34.9 % (39.0-53.0); HDW 2.89; HGB 11.4 gm/dL (13.0-17.5); MCH 29.3 pg (25.0-35.0); MCHC 32.7 g/dL (31.0-37.0); MCV 89.6 fL (80.0-100.0); MPO Flag Slight; Mean Platelet Volume 7.3; RDW 15.1 % (11.5-15.5); WBC 18.3 k/uL (3.8-10.6)
[2016-11-02 06:58] LABS: ALT 21 U/L (21-72); AST 15 U/L (17-59); Alkaline Phosphatase 36 U/L (38-126); Anion Gap 7 mmol/L; Blood Urea Nitrogen 15 mg/dL (9-20); Calcium 8.1 mg/dL (8.4-10.2); Carbon Dioxide 23 mmol/L (22-30); Chloride 109 mmol/L (98-107); Glucose 83 mg/dL (74-99); Magnesium 1.6 mg/dL (1.6-2.3); Non-African American GFR(MDRD) >60 (>60 ml/min/1.73 sqM); Potassium 3.4 mmol/L (3.5-5.1); Sodium 139 mmol/L (137-145); Total Bilirubin 0.1 mg/dL (0.2-1.3); Total Protein 4.2 g/dL (6.3-8.2)
[2016-11-02] MEDS ORDERED: ALBUTEROL NEBULIZED 2.5 MG/3 ML INHALATION SCH ×2 (08:00)
[2016-11-02 08:54] LABS: Add Differential Manual Differential
[2016-11-02 08:55] LABS: Manual Review Performed; Nucleated Red Blood Cells 0 /100 WBC (0-0); Total Cells Counted 100
[2016-11-02] MEDS: METOPROLOL TARTRATE 25 MG TAB PO SCH ×2 (10:24→20:34)
[2016-11-02] MEDS: valACYclovir 500 MG TAB PO SCH ×2 (10:24→20:34)
[2016-11-02] MEDS: ASPIRIN 81 MG PO SCH (10:24)
[2016-11-02] MEDS: HEPARIN SODIUM,PORCINE 5,000 UNIT/ML 1 ML VIAL SQ SCH ×2 (10:25→20:34)
[2016-11-02] MEDS: metroNIDAZOLE 500 MG TAB PO SCH ×2 (10:25→17:02)
[2016-11-02] MEDS: POTASSIUM CHLORIDE ER 10 MEQ TAB.ER.PRT PO SCH ×2 (10:25→20:34)
[2016-11-02 10:41] LABS: Hemoglobin A1C 7.2 % (4.2-6.1)
--- NOTE | 2016-11-02 11:10 | P.CNPUL ---
History of Present Illness Consult date: 11/02/16 Requesting physician: Monica Mcintyre Reason for consult: pneumonia Chief complaint: Shortness of breath History of present illness: This is a 71-year-old male patient who is being seen examined and evaluated. The patient came into the emergency room yesterday with complaints of a congested cough, fever, generalized weakness and shortness of breath that had been getting progressively worse over the last few days. Apparently the patient was in the emergency room 4 days prior and he was treated with azithromycin outpatient. At that time patient stable vital signs, normal white blood cell count. In ER patient presents with fever, tachycardia tachypnea hypoxia and low blood pressure. Laboratory studies reveal white blood cell count of 30.6, platelets are reactive at 470. Lactic acid is normal 1.4. Chest x-ray did show bilateral pulmonary infiltrate. Patient states he has been taking his medications at home however has not been getting any better. The patient responded well to IV hydration in the emergency room and was started on IV antibiotics. Today the patient's white count is noted to be decreased to 18.3 upon examination the patient's resting up in bed on 2 L of supplemental oxygen he continues to complain of intermittent shortness of breath with exertion and/or activity. The patient does not use home oxygen. He continues to also have a congested cough. Review of Systems 14 point review of systems was completed and is negative unless noted above in HPI. Past Medical History Past Medical History: Coronary Artery Disease (CAD), Cancer, Diabetes Mellitus, Hypertension, Pneumonia Additional Past Medical History / Comment(s): lymphoma 4 times / LEFT SIDE OF ABDOMEN -PAIN. Has a history of histoplasmosis which required the lung resection -HAS SOME SOB History of Any Multi-Drug Resistant Organisms: C-DIFF, MRSA Date of last positivie culture/infection: POSSIBLE MAY 2016 MDRO Source:: Sputum Past Surgical History: Cholecystectomy, Heart Catheterization With Stent, Hernia Repair Additional Past Surgical History / Comment(s): stem cell transplant/ LUNG RESECTION Past Anesthesia/Blood Transfusion Reactions: No Reported Reaction Date of Last Stent Placement:: 01-10-2013 Past Psychological History: No Psychological Hx Reported Additional Psychological History / Comment(s): . retired [employer]. No experience. No international travel. No animal exposures Smoking Status: Never smoker Past Alcohol Use History: None Reported Past Drug Use History: None Reported - Past Family History Mother Family Medical History: No Reported History Medications and Allergies Home Medications Medication Instructions Recorded Confirmed Type Insulin Glargine [Lantus] 30 unit SQ HS 04/13/16 11/01/16 History Multivitamins, Thera [Multivitamin 1 tab PO DAILY 04/13/16 11/01/16 History (formulary)] Albuterol Sulfate [Accuneb] 1.25 - 2.5 mg INHALATION RT-Q6H PRN 08/25/16 History Furosemide [Lasix] 40 mg PO BID 08/25/16 11/01/16 History Metoprolol Tartrate [Lopressor] 25 mg PO BID 08/25/16 11/01/16 History Aspirin [Adult Low Dose Aspirin EC] 81 mg PO DAILY 10/27/16 11/01/16 History Potassium Chloride [K-Tab ER] 10 meq PO BID 10/27/16 11/01/16 History Pravastatin Sodium [Pravachol] 40 mg PO DAILY 10/27/16 11/01/16 History metroNIDAZOLE [Flagyl] 500 mg PO Q8H 10/27/16 11/01/16 History Allergies Allergy/AdvReac Type Severity Reaction Status Date / Time No Known Allergies Allergy Verified 11/01/16 17:16 Physical Exam Vitals: Vital Signs Temp Pulse Pulse Resp BP BP Pulse Ox 11/02/16 08:50 112 H 11/02/16 08:41 100 18 11/02/16 04:00 99.2 F 88 17 108/56 94 L 11/01/16 23:49 97.7 F 96 18 85/57 92 L 11/01/16 20:00 70 18 11/01/16 19:18 98.7 F 75 18 110/58 93 L 11/01/16 19:06 109 H 20 114/58 95 11/01/16 18:36 99 F 90 20 107/58 95 11/01/16 17:39 101.1 F H 105 H 22 106/58 94 L 11/01/16 16:45 100.8 F H 115 H 20 98/60 93 L Intake and Output 11/01/16 11/02/16 11/02/16 22:59 06:59 14:59 Intake Total 800 300 118 Output Total 300 525 Balance 500 -225 118 Intake: IV 800 Sodium Chloride 0.9% 1, 800 000 ml @ 50 mls/hr IV . Q20H [facility] Rx#:[id number] Oral 300 118 Output: Urine 300 525 Other: Voiding Method Urinal Urinal # Voids 1 1 Weight 90.718 kg 78 kg GENERAL EXAM: Alert, fatigued, comfortable in no apparent distress. HEAD: Normocephalic. EYES: Normal reaction of pupils, equal size. NOSE: Clear with pink turbinates. THROAT: No erythema or exudates. NECK: No masses, no JVD. CHEST: No chest wall deformity. LUNGS: Breath sounds noted to be coarse with bilateral scattered rhonchi throughout. Bases diminished.. CVS: S1 and S2 normal with no audible mumurs, regular rhythm. ABDOMEN: No hepatosplenomegaly, normal bowel sounds, no guarding or rigidity. EXTREMITIES: No edema noted, pedal pulses palpable. SKIN: No rashes CENTRAL NERVOUS SYSTEM: No focal deficits, tone is normal in all 4 extremities. Results - Laboratory Findings CBC and BMP: 11/02/16 06:22 11/02/16 06:22 PT/INR, D-dimer PT 12.4 sec (9.0-12.0) H 11/01/16 17:20 INR 1.3 (<1.2) H 11/01/16 17:20 Abnormal lab findings: Abnormal Labs 11/01/16 11/01/16 11/01/16 17:20 17:20 17:20 WBC 30.6 H* RBC Hgb 12.6 L Hct 38.2 L Plt Count 470 H Neutrophils # (Manual) 25.09 H Monocytes # (Manual) 1.84 H PT 12.4 H INR 1.3 H Sodium 134 L Potassium Chloride Glucose 234 H POC Glucose (mg/dL) Calcium Total Bilirubin AST Alkaline Phosphatase Total Protein 4.8 L Albumin 2.8 L Urine Protein 11/01/16 11/01/16 11/02/16 19:28 20:26 06:22 WBC RBC Hgb Hct Plt Count Neutrophils # (Manual) Monocytes # (Manual) PT INR Sodium Potassium 3.4 L Chloride 109 H Glucose POC Glucose (mg/dL) 167 H Calcium 8.1 L Total Bilirubin 0.1 L AST 15 L Alkaline Phosphatase 36 L Total Protein 4.2 L Albumin 2.2 L Urine Protein Trace H 11/02/16 06:22 WBC 18.3 H RBC 3.90 L Hgb 11.4 L Hct 34.9 L Plt Count Neutrophils # (Manual) 12.99 H Monocytes # (Manual) PT INR Sodium Potassium Chloride Glucose POC Glucose (mg/dL) Calcium Total Bilirubin AST Alkaline Phosphatase Total Protein Albumin Urine Protein - Diagnostic Findings Chest x-ray: report reviewed, image reviewed Assessment and Plan Plan: Assessment Sepsis Bilateral pneumonia suspect mixed bacterial Acute hypoxic respiratory failure secondary to pneumonia Recent history of C. diff Leukocytosis History of B cell lymphoma Diabetes mellitus Hypertension Plan Medications have been reviewed and will be continued as ordered. Added Atrovent and budesonide to current nebulizer treatments. Initiate IV steroids. Initiate and encourage incentive spirometer. Continue with pulmonary hygiene , coughing and deep breathing exercises, and supportive care. Supplemental oxygen to maintain oxygen saturations of 92% or better. Infectious disease on consult or recent history of C. diff. Continue nebulizer treatments. GI and DVT prophylaxis. We will continue to monitor labs/results and adjust treatment as necessary. Further recommendations pending. I performed an examination of the patient and discussed their management with the nurse practitioner. I have reviewed the nurse practitioner's note and agree with the documented findings and plan of care.
[2016-11-02 12:01] LABS: Glucose,Whole Blood 149 mg/dL (75-99)
[2016-11-02] MEDS: IPRATROPIUM 0.5 MG/2.5 ML NEBU INHALATION SCH ×2 (12:42→20:18)
[2016-11-02] MEDS: ALBUTEROL NEB (CONC) 2.5 MG/0.5 ML INHALATION SCH ×2 (12:42→20:18)
[2016-11-02] MEDS: MULTIVITAMINS, THERA 1 EACH TAB PO SCH (12:50)
[2016-11-02] MEDS: methylPREDNISolone SOD SUCCI 40 MG/ML 1 ML VIAL IV SCH ×3 (12:50→22:29)
--- NOTE | 2016-11-02 15:30 | PN ---
PROGRESS NOTE DATE OF SERVICE: 11/02/2016 This is a 71-year-old gentleman who was admitted with COPD exacerbation as well as bilateral pneumonia and possible sepsis. Also had tachycardia. The patient was seen by Cardiology and as well as Pulmonology. The patient is being closely monitored at this time. Patient also had acute respiratory failure. PAST MEDICAL HISTORY: Reviewed. REVIEW OF SYSTEMS: CARDIOVASCULAR SYSTEM: No angina, no palpitations. RESPIRATORY: As mentioned earlier. GI: As mentioned earlier. : As mentioned earlier. NERVOUS SYSTEM: No numbness or weakness. CURRENT MEDICATIONS: Reviewed and include: 1. Tylenol 650 q.6 p.r.n. 2. Ventolin 2 puffs q.6 p.r.n. and t.i.d. p.r.n. 3. Xanax 0.25 t.i.d. p.r.n. 4. Aspirin 81 mg daily. 5. Azithromycin 500 mg IV daily. 6. Pulmicort 0.5 b.i.d. 7. Rocephin 1 g IV daily. 8. Lasix 40 mg p.o. b.i.d. 9. Heparin. 10.Lantus 30 subcu q.h.s. 11.Humalog scale:. 12.Atrovent. 13.Solu-Medrol 40 IV q.8. 14.Lopressor 25 mg p.o. b.i.d. 15.Flagyl 500 mg p.o. t.i.d. 16.Multivitamin 1 p.o. daily. 17.Narcan 0.2 q.2 p.r.n. 18.Pravachol. 19.Restoril. 20.Valtrex. PHYSICAL EXAM: Patient is alert and oriented x3. Pulse is 112, blood pressure is 120/57, respirations 16, temperature 97.7, pulse ox 94% on 2 L. HEENT: Conjunctivae are normal. Oral mucosa moist. Neck is no jugular venous distention. No carotid bruit. No lymph node enlargement. CARDIOVASCULAR SYSTEM: S1, S2 normal, no murmur. RESPIRATORY SYSTEM: Breath sounds diminished in the bases. Bilateral scattered rhonchi, no crackles. Abdomen is soft, nontender. No mass palpable, obese. LEGS: No edema. No swelling. NERVOUS SYSTEM: Higher functions as mentioned earlier. Moves all 4 limbs. No focal motor or sensory deficits. Mild diffuse weakness. LYMPHATICS: No lymph node enlargement in the neck or axillae. SKIN: No ulcer, rash or bleeding. LABS: WBC is 18.3, hemoglobin is 11.4, sodium 139, potassium 3.4, albumin 2.2. ASSESSMENT: 1. Bilateral pneumonia with sepsis, present on admission. 2. History of Clostridium difficile colitis. 3. Increased WBC. 4. Anemia, normocytic. 5. History of degenerative joint disease and back surgery. 6. History of coronary artery disease. 7. History of congestive heart failure. 8. History of diabetes mellitus type 2. 9. History of hypertension. 10.History of pneumonia. 11.History of lymphoma. 12.History of Methicillin-resistant Staphylococcus aureus. 13.History of cholecystectomy. 14.History of coronary artery disease, stent. 15.FULL CODE. RECOMMENDATION: Recommend to continue current management and symptomatic treatment. Otherwise I would recommend continue with broad-spectrum IV antibiotics. Infectious Disease and as well as Pulmonary input appreciated. Guarded prognosis because of multiple complex medical issues. Increase ambulation. Monitor lytes closely. Monitor culture closely. Further recommendations to follow. MMODL / IJN: [id number] /
[2016-11-02] MEDS ORDERED: AZITHROMYCIN 500 MG in SODIUM CHLORIDE 0.9% 250 ML IVPB SCH (16:00)
[2016-11-02 16:34] LABS: Glucose,Whole Blood 180 mg/dL (75-99)
[2016-11-02] MEDS: SODIUM CHLORIDE 0.9% 1,000 ML IV SCH (17:02)
[2016-11-02] MEDS: BUDESONIDE 0.5 MG/2 ML NEBU INHALATION SCH (20:18)
[2016-11-02] MEDS: PRAVASTATIN SODIUM 40 MG TAB PO SCH (20:34)
[2016-11-02 20:45] LABS: Glucose,Whole Blood 257 mg/dL (75-99)
[2016-11-02] MEDS: INSULIN GLARGINE 100 UNIT/ML 10 ML VIAL SQ SCH (20:47)
[2016-11-02] MEDS: cefTRIAXone 2,000 MG in SODIUM CHLORIDE 0.9% 100 ML IVPB SCH (20:53)
--- NOTE | 2016-11-02 21:06 | CONS ---
CONSULTATION DATE OF SERVICE: 11/02/2016 REASON FOR CONSULTATION: Pneumonia and sepsis. HISTORY OF PRESENT ILLNESS: The patient is a 71-year-old male who presented to the [facility] ER yesterday evening with chief complaints of weakness. The patient also had been complaining of cough and bringing up some yellowish sputum and increasing shortness of breath along with the fever. The patient was seen at this ER about 4 days ago. Apparently the patient did have a chest x-ray and told that maybe left upper lobe pneumonia. He has been treated with oral Zithromax; however, the patient did not have any improvement. Hence, he presented back to the hospital. The patient was noticed to have elevated white count of 30,000, a chest x-ray showing bilateral infiltrate with more increasing infiltrate in the left lower lobe. The patient has been diagnosed with community-acquired pneumonia, admitted to the hospital. ID was consulted for further recommendation regarding antibiotic therapy. The patient did have a previous history of strep pneumo bacteremia and pneumonia back in May 2016. The patient during this admission and did have a fever of 101 degrees Fahrenheit on presentation with a white count elevated to 30,000. Blood culture has been obtained as well as sputum cultures and currently the patient is getting Rocephin and Zithromax. REVIEW OF SYSTEMS: CONSTITUTIONAL: Positive for weakness along with the fever. EYES: No complaint. ENT: No complaint. RESPIRATORY: As per HPI. CARDIOVASCULAR: No complaint. GENITOURINARY: No complaint. GASTROINTESTINAL: No complaint. MUSCULOSKELETAL: No complaint. INTEGUMENTARY: No complaint. PSYCHOLOGICAL: No complaint. ENDOCRINE: No complaint. NEUROLOGICAL: No complaint. PAST MEDICAL HISTORY: Significant for B-cell lymphoma, status post stem cell transplant. The patient did have history of type 2 diabetes mellitus, hypertension, strep pneumoniae and bacteremia and MRSA pneumonia. PAST SURGICAL HISTORY: Cholecystectomy and hernia repair. SOCIAL HISTORY: The patient denies smoking, drinking or drug use. FAMILY HISTORY: Mother history of hypothyroidism. ALLERGIES: No known drug allergies. MEDICATION: Medications include the patient is currently on: 1. Tylenol. 2. Ventolin. 3. Xanax. 4. Aspirin. 5. Azithromycin. 6. Pulmicort. 7. Rocephin. 8. Lasix. 9. Heparin. 10.Lantus. 11.Humalog. 12.Solu-Medrol. 13.Lopressor. 14.Flagyl. 15.Narcan. 16.Pravachol. 17.Restoril. 18.Valtrex. EXAMINATION: Blood pressure is 121/51 with a pulse of 82, temperature of 96.4 with a T-max of 101.1. He is 93% on 2L nasal cannula. GENERAL DESCRIPTION: An elderly male lying in bed in no distress. No tachypnea or accessory muscle of respiration use. HEENT: Shows slight pallor. No scleral icterus. Oral mucous membranes a little bit dry. NECK: Trachea is central. No thyromegaly. LUNGS: Unlabored breathing with coarse breath sounds bilaterally. HEART: S1, S2. Regular rate and rhythm. ABDOMEN: Soft. No tenderness. No guarding. No rigidity. EXTREMITIES: No edema of feet. SKIN: No rashes or mass palpable. NEUROLOGICAL: Patient is awake, alert, oriented x3. Mood and affect normal. LABS: Hemoglobin is 11.4, white count of 18.3. Admission white count was 30,000. BUN of 15 with a creatinine of 0.85. Urine has been negative. Blood cultures currently pending. Sputum cultures are currently pending. DIAGNOSTIC IMPRESSION: Patient admitted to the hospital with sepsis in a patient who did have a fever, elevated white count likely for systemic inflammatory response syndrome. Source is likely left lower lobe pneumonia and likely community-acquired, as the patient seemed to have improved with Rocephin therapy. The patient was recently in the emergency room and has received a course of Zithromax without any improvement. More likely point was a community-acquired pathogen such as Streptococcus pneumoniae. The patient did have a previous history of Clostridium difficile colitis. Currently not presenting with any diarrhea, so no need for any antibiotic treatment for the same Clostridium difficile. PLAN: 1. We will discontinue the Zithromax, as the patient recently received a course of Zithromax without any improvement. 2. Discontinue Flagyl. 3. Will increase Rocephin 2 g IV daily. 4. We will follow up on his clinical condition as well as cultures to further adjust medication if needed. Thank you for this consultation. Will follow this patient along with you. MMODL / IJN: [id number] /
[2016-11-03] MEDS: FUROSEMIDE 40 MG TAB PO SCH ×2 (05:53→18:31)
[2016-11-03 06:00] LABS: Glucose,Whole Blood 235 mg/dL (75-99)
[2016-11-03 06:27] LABS: Aty Lym Flag Slight; CH 28.8; CHCM 31.9; HCT 40.6 % (39.0-53.0); HDW 2.98; HGB 12.7 gm/dL (13.0-17.5); Hypochromasia Slight; MCH 28.3 pg (25.0-35.0); MCHC 31.3 g/dL (31.0-37.0); MCV 90.4 fL (80.0-100.0); MPO Flag Slight; Mean Platelet Volume 7.2; RBC 4.49 m/uL (4.30-5.90); WBC 8.9 k/uL (3.8-10.6); WBC (Perox) 9.41
[2016-11-03 06:37] LABS: Anion Gap 8 mmol/L; Blood Urea Nitrogen 19 mg/dL (9-20); Calcium 8.7 mg/dL (8.4-10.2); Carbon Dioxide 20 mmol/L (22-30); Chloride 107 mmol/L (98-107); Glucose 264 mg/dL (74-99); Non-African American GFR(MDRD) >60 (>60 ml/min/1.73 sqM); Potassium 3.9 mmol/L (3.5-5.1); Sodium 135 mmol/L (137-145)
[2016-11-03 06:56] LABS: Add Differential Manual Differential
[2016-11-03 06:58] LABS: Nucleated Red Blood Cells 0 /100 WBC (0-0); Total Cells Counted 100
[2016-11-03 06:59] LABS: Manual Review Performed
[2016-11-03] MEDS: INSULIN LISPRO (humaLOG) 300 UNIT/3 ML VIAL SQ SCH ×5 (07:05→21:38)
[2016-11-03] MEDS: ALBUTEROL NEB (CONC) 2.5 MG/0.5 ML INHALATION SCH ×3 (08:20→20:36)
[2016-11-03] MEDS: BUDESONIDE 0.5 MG/2 ML NEBU INHALATION SCH ×2 (08:20→20:36)
[2016-11-03] MEDS: IPRATROPIUM 0.5 MG/2.5 ML NEBU INHALATION SCH ×3 (08:20→20:36)
[2016-11-03] MEDS: POTASSIUM CHLORIDE ER 10 MEQ TAB.ER.PRT PO SCH ×2 (09:43→21:40)
[2016-11-03] MEDS: ASPIRIN 81 MG PO SCH (09:43)
[2016-11-03] MEDS: valACYclovir 500 MG TAB PO SCH ×2 (09:43→21:40)
[2016-11-03] MEDS: methylPREDNISolone SOD SUCCI 40 MG/ML 1 ML VIAL IV SCH (09:43)
[2016-11-03] MEDS: METOPROLOL TARTRATE 25 MG TAB PO SCH ×2 (09:43→21:39)
[2016-11-03] MEDS: HEPARIN SODIUM,PORCINE 5,000 UNIT/ML 1 ML VIAL SQ SCH ×2 (09:44→21:39)
--- NOTE | 2016-11-03 10:22 | P.PN ---
Subjective 11/03/16- this patient is seen examined and evaluated today on the selective care unit. Patient is resting up in bed on 2 L of supplemental oxygen via nasal cannula. He continues to have intermittent shortness of breath with exertion and/or activity. He does have a cough that is productive with white to yellow sputum. Infectious disease on consult and has adjusted his antibiotics. He continues on Solu-Medrol 40 mg every 8 hours. Patient has using incentive spirometer and pulling volumes of approximately 2000. Today he is afebrile. No further complaints. 11/02/16- This is a 71-year-old male patient who is being seen examined and evaluated. The patient came into the emergency room yesterday with complaints of a congested cough, fever, generalized weakness and shortness of breath that had been getting progressively worse over the last few days. Apparently the patient was in the emergency room 4 days prior and he was treated with azithromycin outpatient. At that time patient stable vital signs, normal white blood cell count. In ER patient presents with fever, tachycardia tachypnea hypoxia and low blood pressure. Laboratory studies reveal white blood cell count of 30.6, platelets are reactive at 470. Lactic acid is normal 1.4. Chest x-ray did show bilateral pulmonary infiltrate. Patient states he has been taking his medications at home however has not been getting any better. The patient responded well to IV hydration in the emergency room and was started on IV antibiotics. Today the patient's white count is noted to be decreased to 18.3 upon examination the patient's resting up in bed on 2 L of supplemental oxygen he continues to complain of intermittent shortness of breath with exertion and/or activity. The patient does not use home oxygen. He continues to also have a congested cough. Objective - Vital Signs Vital signs: Vital Signs Temp 97.2 F L 11/03/16 04:00 Pulse 72 11/03/16 08:39 Resp 18 11/03/16 04:00 BP 120/67 11/03/16 04:00 Pulse Ox 94 L 11/03/16 04:00 Intake & Output 11/02/16 11/03/16 11/03/16 18:59 06:59 18:59 Intake Total 534 400 236 Output Total 1500 1000 Balance -966 -600 236 Weight 78 kg 75.1 kg Intake: IV 400 Sodium Chloride 0.9% 1, 400 000 ml @ 50 mls/hr IV . Q20H [facility] Rx#:[id number] Oral 534 236 Output: Urine 1500 1000 Other: Voiding Method Urinal Urinal # Voids 3 - Exam GENERAL EXAM: Alert, fatigued, comfortable in no apparent distress. HEAD: Normocephalic. EYES: Normal reaction of pupils, equal size. NOSE: Clear with pink turbinates. THROAT: No erythema or exudates. NECK: No masses, no JVD. CHEST: No chest wall deformity. LUNGS: Breath sounds noted to be coarse with bilateral scattered rhonchi throughout more so on the left base. Bases diminished.. CVS: S1 and S2 normal with no audible mumurs, regular rhythm. ABDOMEN: No hepatosplenomegaly, normal bowel sounds, no guarding or rigidity. EXTREMITIES: No edema noted, pedal pulses palpable. SKIN: No rashes CENTRAL NERVOUS SYSTEM: No focal deficits, tone is normal in all 4 extremities. - Labs CBC & Chem 7: 11/03/16 06:00 11/03/16 05:52 Labs: Abnormal Lab Results - Last 24 Hours (Table) 11/02/16 11/02/16 11/02/16 Range/Units 06:22 11:55 16:32 Hgb (13.0-17.5) gm/dL Plt Count (150-450) k/uL Sodium (137-145) mmol/L Carbon Dioxide (22-30) mmol/L Glucose (74-99) mg/dL POC Glucose (mg/dL) 149 H 180 H (75-99) mg/dL Hemoglobin A1c 7.2 H (4.2-6.1) % 11/02/16 11/03/16 11/03/16 Range/Units 20:44 05:52 05:58 Hgb (13.0-17.5) gm/dL Plt Count (150-450) k/uL Sodium 135 L (137-145) mmol/L Carbon Dioxide 20 L (22-30) mmol/L Glucose 264 H (74-99) mg/dL POC Glucose (mg/dL) 257 H 235 H (75-99) mg/dL Hemoglobin A1c (4.2-6.1) % 11/03/16 Range/Units 06:00 Hgb 12.7 L (13.0-17.5) gm/dL Plt Count 471 H (150-450) k/uL Sodium (137-145) mmol/L Carbon Dioxide (22-30) mmol/L Glucose (74-99) mg/dL POC Glucose (mg/dL) (75-99) mg/dL Hemoglobin A1c (4.2-6.1) % Microbiology - Last 24 Hours (Table) 11/01/16 20:26 Urine Culture - Final Urine,Clean Catch 11/01/16 17:20 Blood Culture - Preliminary Blood No Growth after 24 hours 11/01/16 21:26 Gram Stain - Preliminary Sputum Sputum Culture - Preliminary Assessment and Plan Plan: Assessment Sepsis Bilateral pneumonia suspect mixed bacterial Acute hypoxic respiratory failure secondary to pneumonia Recent history of C. diff Leukocytosis History of B cell lymphoma Diabetes mellitus Hypertension Plan Medications have been reviewed and will be continued as ordered. Repeat chest x -ray tomorrow. IV steroids. Initiate and encourage incentive spirometer. Continue with pulmonary hygiene, coughing and deep breathing exercises, and supportive care. Supplemental oxygen to maintain oxygen saturations of 92% or better. Infectious disease on consult or recent history of C. diff and history of strep pneumo bacteremia and pneumonia in May 2016. Continue nebulizer treatments. GI and DVT prophylaxis. We will continue to monitor labs/results and adjust treatment as necessary. Further recommendations pending. I performed an examination of the patient and discussed their management with the nurse practitioner. I have reviewed the nurse practitioner's note and agree with the documented findings and plan of care.
[2016-11-03 11:49] LABS: Glucose,Whole Blood 400 mg/dL (75-99)
[2016-11-03] MEDS: SODIUM CHLORIDE 0.9% 1,000 ML IV SCH (12:33)
[2016-11-03] MEDS: MULTIVITAMINS, THERA 1 EACH TAB PO SCH (12:33)
--- NOTE | 2016-11-03 16:36 | P.PN ---
Subjective Date of service 11/03/2016. Progress note being dictated for Dr. Mcintyre. Interval history: This a 71-year-old gentleman admitted with acute respiratory failure, COPD exacerbation, bilateral pneumonia and possible sepsis. Maintained on nebulized bronchodilators, steroids and IV antibiotics. Afebrile. Objective - Vital Signs Vital signs: Vital Signs Temp 97.2 F L 11/03/16 04:00 Pulse 72 11/03/16 08:39 Resp 18 11/03/16 08:00 BP 119/64 11/03/16 08:00 Pulse Ox 98 11/03/16 08:00 Intake & Output 11/02/16 11/03/16 11/03/16 18:59 06:59 18:59 Intake Total 534 400 236 Output Total 1500 1000 Balance -966 -600 236 Weight 78 kg 75.1 kg Intake: IV 400 Sodium Chloride 0.9% 1, 400 000 ml @ 50 mls/hr IV . Q20H [facility] Rx#:[id number] Oral 534 236 Output: Urine 1500 1000 Other: Voiding Method Urinal Urinal Urinal # Voids 3 - Exam PHYSICAL EXAM: VITAL SIGNS: As above GENERAL: Sitting up in bed, no acute distress HEENT: Conjunctivae normal. eyes normal. NECK: No JVD. No thyroid enlargement. No LNs CARDIOVASCULAR: S1, S2 muffled. No murmur RESPIRATION: Breath sounds diminished in the bases. Bilateral scattered rhonchi ,no crackles. ABDOMEN: Soft, nontender . No guarding. no masses palpable.Bowel sounds heard. LEGS: No edema. no swelling PSYCHIATRY: Alert and oriented -3, mood and affect normal. NERVOUS SYSTEM: Cranial N 2-12 grossly normal. Moves all 4 limbs. Diffuse weakness No focal deficits. No sensory deficit. . Skin: no ulcer no rash Joints: No active swelling. No inflammation. Lymphatic system. No LN neck, axilla - Labs CBC & Chem 7: 11/03/16 06:00 11/03/16 05:52 Labs: Abnormal Lab Results - Last 24 Hours (Table) 11/02/16 11/02/16 11/03/16 Range/Units 16:32 20:44 05:52 Hgb (13.0-17.5) gm/dL Plt Count (150-450) k/uL Sodium 135 L (137-145) mmol/L Carbon Dioxide 20 L (22-30) mmol/L Glucose 264 H (74-99) mg/dL POC Glucose (mg/dL) 180 H 257 H (75-99) mg/dL 11/03/16 11/03/16 11/03/16 Range/Units 05:58 06:00 11:46 Hgb 12.7 L (13.0-17.5) gm/dL Plt Count 471 H (150-450) k/uL Sodium (137-145) mmol/L Carbon Dioxide (22-30) mmol/L Glucose (74-99) mg/dL POC Glucose (mg/dL) 235 H 400 H (75-99) mg/dL Microbiology - Last 24 Hours (Table) 11/01/16 20:26 Urine Culture - Final Urine,Clean Catch 11/01/16 17:20 Blood Culture - Preliminary Blood No Growth after 24 hours Assessment and Plan Plan: 1. [ Bilateral pneumonia with sepsis, present on admission]. 2. [ History of C. difficile colitis]. 3. [ Degenerative joint disease]. 4. [ CAD]. 5. [ History of CHF]. 6. [ Diabetes mellitus type 2, uncontrolled on steroids].. Plan: Continue on current medication regime ,monitoring and symptomatic treatment. Maintain antibiotics, nebulized dilators, steroids. Taper steroids ; IV steroids and DC'd, begin oral prednisone tomorrow. While on steroids, initiated premeal insulin, hold if Accu-Chek less than 120. Antibiotics as per infectious disease. Close monitoring of Accu-Cheks. Discharge planning in progress for tomorrow. The impression and plan of care has been dictated as directed. : I performed a history and examination of this patient, discussed the same with the dictator. I agree with the dictator's note ,documented as a scribe. Any additional findings or plans will be noted.
[2016-11-03 16:52] LABS: Glucose,Whole Blood 340 mg/dL (75-99)
[2016-11-03] MEDS ORDERED: INSULIN LISPRO (humaLOG) 300 UNIT/3 ML VIAL SQ ONE (16:52)
[2016-11-03 21:34] LABS: Glucose,Whole Blood 210 mg/dL (75-99)
[2016-11-03] MEDS: INSULIN GLARGINE 100 UNIT/ML 10 ML VIAL SQ SCH (21:38)
[2016-11-03] MEDS: cefTRIAXone 2,000 MG in SODIUM CHLORIDE 0.9% 100 ML IVPB SCH (21:39)
[2016-11-03] MEDS: PRAVASTATIN SODIUM 40 MG TAB PO SCH (21:40)
--- NOTE | 2016-11-03 22:58 | PN ---
PROGRESS NOTE DATE OF SERVICE: 11/03/2016 REASON FOR FOLLOWUP: Pneumonia. INTERVAL HISTORY: The patient is afebrile, has been breathing comfortably. He did have an episode of coughing spell this morning. The patient almost vomited. Denies any choking on food. No chest pain. No abdominal pain. No diarrhea. PHYSICAL EXAMINATION: Blood pressure is 132/63 with a pulse of 82, temperature 98. He is 93% on room air. GENERAL DESCRIPTION: An elderly male lying in bed in no distress. RESPIRATORY SYSTEM: Unlabored breathing. Coarse breath sounds in the bases. No wheeze. HEART: S1, S2. Regular rate and rhythm. ABDOMEN: Soft. No tenderness. LABS: Hemoglobin is 12.7, white count 8.9 with a BUN of 19, creatinine 0.70. Sputum culture is currently pending. Blood culture negative. DIAGNOSTIC IMPRESSION AND PLAN: Patient admitted to the hospital with sepsis, also pneumonia, likely community- acquired, overall responding to Rocephin. Will continue waiting for the sputum culture to finalize. Continue supportive care. MMODL / IJN: [id number] /
[2016-11-04] MEDS: TEMAZEPAM 15 MG CAP PO PRN ×2 (00:03→23:11)
[2016-11-04] MEDS: methylPREDNISolone SOD SUCCI 40 MG/ML 1 ML VIAL IV SCH (01:33)
[2016-11-04] MEDS: FUROSEMIDE 40 MG TAB PO SCH ×2 (05:15→17:10)
[2016-11-04 05:54] LABS: Glucose,Whole Blood 168 mg/dL (75-99)
[2016-11-04] MEDS: SODIUM CHLORIDE 0.9% 1,000 ML IV SCH (06:50)
[2016-11-04] MEDS: INSULIN LISPRO (humaLOG) 300 UNIT/3 ML VIAL SQ SCH ×7 (06:51→20:38)
[2016-11-04 07:07] LABS: Aty Lym Flag Slight; CH 29.1; CHCM 33.2; HCT 39.5 % (39.0-53.0); HDW 3.06; HGB 13.1 gm/dL (13.0-17.5); MCH 29.2 pg (25.0-35.0); MCHC 33.3 g/dL (31.0-37.0); MCV 87.9 fL (80.0-100.0); MPO Flag Slight; Mean Platelet Volume 7.2; RBC 4.49 m/uL (4.30-5.90); WBC 18.3 k/uL (3.8-10.6); WBC (Perox) 18.24
[2016-11-04 07:20] LABS: Anion Gap 9 mmol/L; Blood Urea Nitrogen 22 mg/dL (9-20); Calcium 8.9 mg/dL (8.4-10.2); Carbon Dioxide 23 mmol/L (22-30); Chloride 108 mmol/L (98-107); Glucose 157 mg/dL (74-99); Non-African American GFR(MDRD) >60 (>60 ml/min/1.73 sqM); Potassium 3.7 mmol/L (3.5-5.1); Sodium 140 mmol/L (137-145)
--- NOTE | 2016-11-04 07:36 | XR ---
EXAMINATION TYPE: XR chest 2V DATE OF EXAM: 11/04/2016 COMPARISON: 11/01/2016 HISTORY: Shortness of breath and fever TECHNIQUE: Frontal and lateral views of the chest are obtained. FINDINGS: Left midlung patchy opacity is redemonstrated. There is pulmonary hyperinflation with flattening of the diaphragms. Biapical lucency is also seen re lating underlying COPD. This finding blunts the costophrenic angles. Moderate degenerative changes of the thoracic spine are noted as well as cervicothoracic fixation rods and pedicular screws. Right up per quadrant cholecystectomy clips are present. IMPRESSION: Lingular and/or left basilar airspace disease, given the patient's clinical symptoms of shortness of breath and fever most likely represents pneumonia.
[2016-11-04] MEDS: BUDESONIDE 0.5 MG/2 ML NEBU INHALATION SCH ×2 (08:29→19:52)
[2016-11-04] MEDS: IPRATROPIUM 0.5 MG/2.5 ML NEBU INHALATION SCH ×3 (08:29→19:52)
[2016-11-04] MEDS: ALBUTEROL NEB (CONC) 2.5 MG/0.5 ML INHALATION SCH ×3 (08:29→19:53)
[2016-11-04] MEDS: HEPARIN SODIUM,PORCINE 5,000 UNIT/ML 1 ML VIAL SQ SCH ×2 (09:27→20:35)
[2016-11-04] MEDS: valACYclovir 500 MG TAB PO SCH ×2 (09:27→20:37)
[2016-11-04] MEDS: predniSONE 20 MG TAB PO SCH (09:27)
[2016-11-04] MEDS: POTASSIUM CHLORIDE ER 10 MEQ TAB.ER.PRT PO SCH ×2 (09:27→20:36)
[2016-11-04] MEDS: METOPROLOL TARTRATE 25 MG TAB PO SCH ×2 (09:27→20:36)
[2016-11-04] MEDS: ASPIRIN 81 MG PO SCH (09:27)
[2016-11-04 10:50] LABS: Add Differential Manual Differential
[2016-11-04 10:51] LABS: Nucleated Red Blood Cells 0 /100 WBC (0-0); Total Cells Counted 100
[2016-11-04 12:07] LABS: Glucose,Whole Blood 268 mg/dL (75-99)
[2016-11-04] MEDS: MULTIVITAMINS, THERA 1 EACH TAB PO SCH (12:15)
--- NOTE | 2016-11-04 13:41 | PN ---
PROGRESS NOTE DATE OF SERVICE: 11/04/2016 REASON FOR FOLLOWUP: Pneumonia, community acquired. INTERVAL HISTORY: The patient is afebrile. He is breathing comfortably. His cough has decreased in intensity. It is dry now. No chest pain. No abdominal pain. No diarrhea. PHYSICAL EXAMINATION: On examination, blood pressure is 101/59 with a pulse of 72, temperature 97. He is 96% on 2 L nasal cannula. General description is an elderly male up in a chair, in no distress. RESPIRATORY SYSTEM: Unlabored breathing with decreased breath sounds at the bases. No wheeze. HEART: S1, S2. Regular rate and rhythm. ABDOMEN: Soft, no tenderness. LABS: Hemoglobin 13.1, white count of 18.3 today with a BUN of 22 with a creatinine 0.79. Sputum culture was so far negative. Blood cultures were negative. DIAGNOSTIC IMPRESSION AND PLAN: Patient with community-acquired pneumonia admitted to the hospital with sepsis. Plan to keep the patient on Rocephin with the plan to finish therapy with p.o. Ceftin as no resistant organism has been grown. Continue with supportive care. MMODL / IJN: [id number] /
--- NOTE | 2016-11-04 15:14 | P.PN ---
Subjective 11/04/16- patient seen examined and evaluated today. He states he is feeling better today. Currently resting up in bed on 2L of supplemental oxygen. Shortness of breath with exertion or conversation continues. Intermittent cough with white sputum. Continues to use IS regularly. Afebrile, no overnight events. no further complaints. 11/03/16- this patient is seen examined and evaluated today on the selective care unit. Patient is resting up in bed on 2 L of supplemental oxygen via nasal cannula. He continues to have intermittent shortness of breath with exertion and/or activity. He does have a cough that is productive with white to yellow sputum. Infectious disease on consult and has adjusted his antibiotics. He continues on Solu-Medrol 40 mg every 8 hours. Patient has using incentive spirometer and pulling volumes of approximately 2000. Today he is afebrile. No further complaints. 11/02/16- This is a 71-year-old male patient who is being seen examined and evaluated. The patient came into the emergency room yesterday with complaints of a congested cough, fever, generalized weakness and shortness of breath that had been getting progressively worse over the last few days. Apparently the patient was in the emergency room 4 days prior and he was treated with azithromycin outpatient. At that time patient stable vital signs, normal white blood cell count. In ER patient presents with fever, tachycardia tachypnea hypoxia and low blood pressure. Laboratory studies reveal white blood cell count of 30.6, platelets are reactive at 470. Lactic acid is normal 1.4. Chest x-ray did show bilateral pulmonary infiltrate. Patient states he has been taking his medications at home however has not been getting any better. The patient responded well to IV hydration in the emergency room and was started on IV antibiotics. Today the patient's white count is noted to be decreased to 18.3 upon examination the patient's resting up in bed on 2 L of supplemental oxygen he continues to complain of intermittent shortness of breath with exertion and/or activity. The patient does not use home oxygen. He continues to also have a congested cough. Objective - Vital Signs Vital signs: Vital Signs Temp 97.0 F L 11/04/16 08:00 Pulse 84 11/04/16 13:37 Resp 18 11/04/16 04:00 BP 101/59 11/04/16 08:00 Pulse Ox 96 11/04/16 08:32 Intake & Output 11/03/16 11/04/16 11/04/16 18:59 06:59 18:59 Intake Total 476 240 Output Total 900 1350 600 Balance -533 -0653 -829 Weight 75.1 kg 78.2 kg Intake: Oral 476 240 Output: Urine 900 1350 600 Other: Voiding Method Urinal Urinal # Voids 1 1 - Exam GENERAL EXAM: Alert, fatigued, comfortable in no apparent distress. HEAD: Normocephalic. EYES: Normal reaction of pupils, equal size. NOSE: Clear with pink turbinates. THROAT: No erythema or exudates. NECK: No masses, no JVD. CHEST: No chest wall deformity. LUNGS: Breath sounds noted to be coarse with bilateral scattered rhonchi throughout more so on the left base. Bases diminished.. CVS: S1 and S2 normal with no audible mumurs, regular rhythm. ABDOMEN: No hepatosplenomegaly, normal bowel sounds, no guarding or rigidity. EXTREMITIES: No edema noted, pedal pulses palpable. SKIN: No rashes CENTRAL NERVOUS SYSTEM: No focal deficits, tone is normal in all 4 extremities. - Labs CBC & Chem 7: 11/04/16 06:35 11/04/16 06:35 Labs: Abnormal Lab Results - Last 24 Hours (Table) 11/03/16 11/03/16 11/04/16 Range/Units 16:51 21:33 05:52 WBC (3.8-10.6) k/uL Neutrophils # (Manual) (1.3-7.7) k/uL Monocytes # (Manual) (0-1.0) k/uL Chloride (98-107) mmol/L BUN (9-20) mg/dL Glucose (74-99) mg/dL POC Glucose (mg/dL) 340 H 210 H 168 H (75-99) mg/dL 11/04/16 11/04/16 11/04/16 Range/Units 06:35 06:35 11:50 WBC 18.3 H (3.8-10.6) k/uL Neutrophils # (Manual) 15.92 H (1.3-7.7) k/uL Monocytes # (Manual) 1.10 H (0-1.0) k/uL Chloride 108 H (98-107) mmol/L BUN 22 H (9-20) mg/dL Glucose 157 H (74-99) mg/dL POC Glucose (mg/dL) 268 H (75-99) mg/dL Microbiology - Last 24 Hours (Table) 11/01/16 21:26 Gram Stain - Final Sputum Sputum Culture - Final 11/01/16 17:20 Blood Culture - Preliminary Blood No Growth after 48 hours Assessment and Plan Plan: Assessment Sepsis Bilateral pneumonia suspect mixed bacterial Acute hypoxic respiratory failure secondary to pneumonia and requiring supplemental oxygen Recent history of C. diff Leukocytosis History of B cell lymphoma Diabetes mellitus Hypertension Plan Medications have been reviewed and will be continued as ordered. Labs and reports reviewed. IV steroids. Initiate and encourage incentive spirometer. Continue with pulmonary hygiene, coughing and deep breathing exercises, and supportive care. Supplemental oxygen to maintain oxygen saturations of 92% or better. Infectious disease on consult or recent history of C. diff and history of strep pneumo bacteremia and pneumonia in May 2016. Continue nebulizer treatments. GI and DVT prophylaxis. We will continue to monitor labs/results and adjust treatment as necessary. Further recommendations pending. I performed an examination of the patient and discussed their management with the nurse practitioner. I have reviewed the nurse practitioner's note and agree with the documented findings and plan of care.
[2016-11-04 16:58] LABS: Glucose,Whole Blood 179 mg/dL (75-99)
--- NOTE | 2016-11-04 17:13 | P.PN ---
Subjective Progress note being dictated for Dr. Mcintyre. 11/03/2016.Interval history: This a 71-year-old gentleman admitted with acute respiratory failure, COPD exacerbation, bilateral pneumonia and possible sepsis. Maintained on nebulized bronchodilators, steroids and IV antibiotics. Afebrile. 11/04/2016 maintained on Rocephin as per infectious disease. breathing continues to improve, maintaining O2 sats in the 90s on 2 L nasal cannula. Nonproductive cough. Sputum and blood cultures currently negative. Telemetry sinus rhythm. Good diet intake with no nausea vomiting or diarrhea. Denies chest pain, palpitations or increasing shortness of breath. Objective - Vital Signs Vital signs: Vital Signs Temp 97.0 F L 11/04/16 08:00 Pulse 84 11/04/16 13:37 Resp 18 11/04/16 04:00 BP 114/60 11/04/16 12:00 Pulse Ox 93 L 11/04/16 12:00 Intake & Output 11/03/16 11/04/16 11/04/16 18:59 06:59 18:59 Intake Total 476 540 Output Total 900 1350 600 Balance -424 -1350 -60 Weight 75.1 kg 78.2 kg Intake: Oral 476 540 Output: Urine 900 1350 600 Other: Voiding Method Urinal Urinal # Voids 1 1 - Exam PHYSICAL EXAM: VITAL SIGNS: As above GENERAL: Sitting up in bed, no acute distress HEENT: Conjunctivae normal. eyes normal. NECK: No JVD. No thyroid enlargement. No LNs CARDIOVASCULAR: S1, S2 muffled. No murmur RESPIRATION: Breath sounds diminished in the bases. Bilateral scattered rhonchi ,no crackles. ABDOMEN: Soft, nontender . No guarding. no masses palpable.Bowel sounds heard. LEGS: No edema. no swelling PSYCHIATRY: Alert and oriented -3, mood and affect normal. NERVOUS SYSTEM: Cranial N 2-12 grossly normal. Moves all 4 limbs. Diffuse weakness No focal deficits. No sensory deficit. . Skin: no ulcer no rash Joints: No active swelling. No inflammation. Lymphatic system. No LN neck, axilla - Labs CBC & Chem 7: 11/04/16 06:35 11/04/16 06:35 Labs: Abnormal Lab Results - Last 24 Hours (Table) 11/03/16 11/04/16 11/04/16 Range/Units 21:33 05:52 06:35 WBC (3.8-10.6) k/uL Neutrophils # (Manual) (1.3-7.7) k/uL Monocytes # (Manual) (0-1.0) k/uL Chloride 108 H (98-107) mmol/L BUN 22 H (9-20) mg/dL Glucose 157 H (74-99) mg/dL POC Glucose (mg/dL) 210 H 168 H (75-99) mg/dL 11/04/16 11/04/16 11/04/16 Range/Units 06:35 11:50 16:35 WBC 18.3 H (3.8-10.6) k/uL Neutrophils # (Manual) 15.92 H (1.3-7.7) k/uL Monocytes # (Manual) 1.10 H (0-1.0) k/uL Chloride (98-107) mmol/L BUN (9-20) mg/dL Glucose (74-99) mg/dL POC Glucose (mg/dL) 268 H 179 H (75-99) mg/dL Microbiology - Last 24 Hours (Table) 11/01/16 21:26 Gram Stain - Final Sputum Sputum Culture - Final 11/01/16 17:20 Blood Culture - Preliminary Blood No Growth after 48 hours Assessment and Plan Plan: 1. [ Bilateral pneumonia with sepsis, present on admission]. 2. [ History of C. difficile colitis]. 3. [ Degenerative joint disease]. 4. [ CAD]. 5. [ History of CHF]. 6. [ Diabetes mellitus type 2, uncontrolled on steroids].. Plan: Continue on current medication regime ,monitoring and symptomatic treatment. Maintain antibiotics, nebulized dilators, steroids. Steroids tapered currently on oral. Taper steroids; IV steroids and DC'd, begin oral prednisone tomorrow. Antibiotics as per infectious disease. Close monitoring of Accu-Cheks. Discharge planning in progress for tomorrow pending infectious disease clearance, The impression and plan of care has been dictated as directed. : I performed a history and examination of this patient, discussed the same with the dictator. I agree with the dictator's note ,documented as a scribe. Any additional findings or plans will be noted.
[2016-11-04 20:18] LABS: Glucose,Whole Blood 182 mg/dL (75-99)
[2016-11-04] MEDS: cefTRIAXone 2,000 MG in SODIUM CHLORIDE 0.9% 100 ML IVPB SCH (20:35)
[2016-11-04] MEDS: PRAVASTATIN SODIUM 40 MG TAB PO SCH (20:36)
[2016-11-04] MEDS: INSULIN GLARGINE 100 UNIT/ML 10 ML VIAL SQ SCH (20:37)
[2016-11-05 00:32] VITALS: RESP 16
[2016-11-05] MEDS: SODIUM CHLORIDE 0.9% 1,000 ML IV SCH ×2 (05:28→05:35)
[2016-11-05] MEDS: FUROSEMIDE 40 MG TAB PO SCH (05:29)
[2016-11-05 05:40] LABS: Glucose,Whole Blood 120 mg/dL (75-99)
[2016-11-05] MEDS: INSULIN LISPRO (humaLOG) 300 UNIT/3 ML VIAL SQ SCH ×4 (05:59→11:33)
[2016-11-05 07:24] LABS: Aty Lym Flag Slight; CH 28.7; CHCM 32.1; HCT 40.6 % (39.0-53.0); HDW 2.97; Hypochromasia Slight; MCH 28.6 pg (25.0-35.0); MCHC 31.9 g/dL (31.0-37.0); MCV 89.6 fL (80.0-100.0); MPO Flag Slight; Mean Platelet Volume 7.2; RBC 4.54 m/uL (4.30-5.90); RDW 15.1 % (11.5-15.5); WBC 10.2 k/uL (3.8-10.6); WBC (Perox) 10.52
[2016-11-05] MEDS: valACYclovir 500 MG TAB PO SCH (07:32)
[2016-11-05] MEDS: HEPARIN SODIUM,PORCINE 5,000 UNIT/ML 1 ML VIAL SQ SCH (07:32)
[2016-11-05] MEDS: MULTIVITAMINS, THERA 1 EACH TAB PO SCH (07:32)
[2016-11-05] MEDS: METOPROLOL TARTRATE 25 MG TAB PO SCH (07:32)
[2016-11-05] MEDS: predniSONE 20 MG TAB PO SCH (07:32)
[2016-11-05] MEDS: ASPIRIN 81 MG PO SCH (07:32)
[2016-11-05] MEDS: POTASSIUM CHLORIDE ER 10 MEQ TAB.ER.PRT PO SCH (07:32)
[2016-11-05 07:53] LABS: Anion Gap 12 mmol/L; Blood Urea Nitrogen 22 mg/dL (9-20); Carbon Dioxide 24 mmol/L (22-30); Chloride 104 mmol/L (98-107); Glucose 99 mg/dL (74-99); Non-African American GFR(MDRD) >60 (>60 ml/min/1.73 sqM); Sodium 140 mmol/L (137-145)
[2016-11-05] MEDS: IPRATROPIUM-ALBUTEROL 3 ML NEB INHALATION SCH ×2 (07:56→13:21)
[2016-11-05] MEDS: BUDESONIDE 0.5 MG/2 ML NEBU INHALATION SCH (07:57)
[2016-11-05 10:11] LABS: Add Differential Manual Differential
[2016-11-05 10:14] LABS: Band Neutrophils % 1 %; Manual Review Performed; Myelocytes % 1 %; Nucleated Red Blood Cells 0 /100 WBC (0-0); Total Cells Counted 200
[2016-11-05 11:27] LABS: Glucose,Whole Blood 211 mg/dL (75-99)
[2016-11-05 11:40] VITALS: BP 131/73; TEMP 97.1
[2016-11-05 13:38] VITALS: PULSE 80
--- NOTE | 2016-11-05 15:06 | PN ---
PROGRESS NOTE DATE OF SERVICE: 11/05/16 INTERVAL HISTORY: Patient was seen on 11/05/2016. The patient has remained hemodynamically stable. He is back to his baseline as far as shortness of breath and cough is concerned. PHYSICAL EXAMINATION: On physical examination, blood pressure 131/73, respiratory rate of 16, pulse rate of 75, temperature 97.1 degrees Fahrenheit. HEENT is unremarkable. Chest is clear. Cardiovascular system is S1, S2. Abdomen is soft. There is no edema. IMPRESSION: At this time is: 1. Pneumonia, continue antibiotics, increase his activity level. 2. Discharge planning for today would be appropriate from a pulmonary standpoint. MMODL / IJN: [id number] /
[2016-11-05 17:00] LABS: Glucose,Whole Blood 241 mg/dL (75-99)
--- NOTE | 2016-11-05 17:36 | PN ---
PROGRESS NOTE DATE OF SERVICE: 11/05/2016. REASON FOR FOLLOWUP: Pneumonia, community-acquired. INTERVAL HISTORY: The patient is afebrile, has been breathing comfortably. Denies any chest pain, shortness of breath. Very minimal cough. No abdominal pain. No diarrhea. PHYSICAL EXAMINATION: Blood pressure 131/73 with a pulse of 75, temperature 97.1. He is 98% on room air. GENERAL DESCRIPTION: An elderly male up in the chair, in no distress. RESPIRATORY SYSTEM: Unlabored breathing. Some decreased breath sounds in the bases. No wheeze. HEART: S1, S2. Regular rate and rhythm. ABDOMEN: Soft. No tenderness. LABS: Hemoglobin is 13, white count 10.2 with a BUN of 22 creatinine 0.78. DIAGNOSTIC IMPRESSION AND PLAN: Patient admitted to the hospital with sepsis, also pneumonia, likely community acquired. The patient has shown overall clinical improvement on Rocephin. Plan to finish therapy with p.o. Ceftin 500 mg twice a day for another 10 days. Script was sent to his pharmacy. Follow up in the office in about a week. Continue supportive care. MMODL / IJN: [id number] /
--- NOTE | 2016-11-05 18:12 | P.DS ---
Providers Date of admission: 11/01/16 18:36 Attending physician: Francisco Javier Deluna Consults: 11/01/16 20:31 Consult Physician Routine Consulting Provider: Hi Urias Consult Reason/Comments: pneumonia, h/o c diff Do you want consulting provider notified?: Yes Consult Physician Routine Consulting Provider: Geovanni Quigley Consult Reason/Comments: pneumonia, h/o c diff Do you want consulting provider notified?: Yes Primary care physician: Angela Galindo [facility] Course: This 71-year-old gentleman with a past medical history multiple medical problems was admitted with bilateral pneumonia and features of sepsis. Patient was treated with antibiotics and bronchodilators and steroids. Pulmonary and as well as infectious disease are consulted. Patient improved significantly. Patient discharged in a stable condition with guarded prognosis with the following of his medications. On exam vitals are stable. Cardio S1 and S2 normal. Respirator system few scattered rhonchi. Abdomen soft nontender. Nervous system no focal deficit. Final diagnosis 1. Bilateral pneumonia with sepsis possibly community-acquired. Present on admission. 2. History of C. difficile colitis. 3. History of DJD. 4. History of CAD. 5. History of CHF. 6. Diabetes type 2 uncontrolled on steroids. Patient Condition at Discharge: Serious Plan - Discharge Summary New Discharge Prescriptions: New Cefuroxime Axetil [Ceftin] 500 mg PO BID #20 tab Budesonide/Formoterol Fumarate [Symbicort 160-4.5 Mcg Inhaler] 1 puff IH BID #1 hfa.aer.ad Ipratropium-Albuterol Nebulize [Duoneb 0.5 mg-3 mg/3 ml Soln] 3 ml INHALATION RT-TID #90 neb predniSONE 10 mg PO DIRECTED #12 tab valACYclovir [Valtrex] 1,000 mg PO BID #14 tab Continue Multivitamins, Thera [Multivitamin (formulary)] 1 tab PO DAILY Insulin Glargine [Lantus] 30 unit SQ HS Furosemide [Lasix] 40 mg PO BID Metoprolol Tartrate [Lopressor] 25 mg PO BID metroNIDAZOLE [Flagyl] 500 mg PO Q8H Pravastatin Sodium [Pravachol] 40 mg PO DAILY Potassium Chloride [K-Tab ER] 10 meq PO BID Aspirin [Adult Low Dose Aspirin EC] 81 mg PO DAILY Discontinued Albuterol Sulfate [Accuneb] 1.25 - 2.5 mg INHALATION RT-Q6H PRN PRN Reason: Shortness Of Breath Discharge Medication List Insulin Glargine [Lantus] 30 unit SQ HS 04/13/16 [History] Multivitamins, Thera [Multivitamin (formulary)] 1 tab PO DAILY 04/13/16 [History ] Furosemide [Lasix] 40 mg PO BID 08/25/16 [History] Metoprolol Tartrate [Lopressor] 25 mg PO BID 08/25/16 [History] Aspirin [Adult Low Dose Aspirin EC] 81 mg PO DAILY 10/27/16 [History] Potassium Chloride [K-Tab ER] 10 meq PO BID 10/27/16 [History] Pravastatin Sodium [Pravachol] 40 mg PO DAILY 10/27/16 [History] metroNIDAZOLE [Flagyl] 500 mg PO Q8H 10/27/16 [History] Budesonide/Formoterol Fumarate [Symbicort 160-4.5 Mcg Inhaler] 1 puff IH BID #1 hfa.aer.ad 11/05/16 [Rx] Cefuroxime Axetil [Ceftin] 500 mg PO BID #20 tab 11/05/16 [Rx] Ipratropium-Albuterol Nebulize [Duoneb 0.5 mg-3 mg/3 ml Soln] 3 ml INHALATION RT -TID #90 neb 11/05/16 [Rx] predniSONE 10 mg PO DIRECTED #12 tab 11/05/16 [Rx] valACYclovir [Valtrex] 1,000 mg PO BID #14 tab 11/05/16 [Rx] Follow up Appointment(s)/Referral(s): Hi Urias MD [STAFF PHYSICIAN] - 1 Week Angela Galindo MD [Primary Care Provider] - 1-2 days Geovanni Quigley MD [STAFF PHYSICIAN] - 1 Week Patient Instructions/Handouts: Shingles (DC), Sepsis (GEN), Clostridium Difficile Infection (DC) Activity/Diet/Wound Care/Special Instructions: diet cardiac act limited till f/u yogurt 1 po tid Discharge Disposition: HOME SELF-CARE
== END 2016-11-05 17:03 | disposition home or self-care (01) | DRG 871 ==
LOC: EC 16:28 → 6SEL 18:36
PROVIDERS: ADMIT Internal Medicine; ATTEND Internal Medicine
DX: A41.9 Sepsis, unspecified organism (principal); J18.9 Pneumonia, unspecified organism; J96.01 Acute respiratory failure with hypoxia; I11.0 Hypertensive heart disease with heart failure; E11.65 Type 2 diabetes mellitus with hyperglycemia; D64.9 Anemia, unspecified; I50.9 Heart failure, unspecified; J44.0 Chronic obstructive pulmonary disease with (acute) lower respiratory infection; J44.1 Chronic obstructive pulmonary disease with (acute) exacerbation; Z94.84 Stem cells transplant status; I25.10 Atherosclerotic heart disease of native coronary artery without angina pectoris; I45.10 Unspecified right bundle-branch block; Z79.899 Other long term (current) drug therapy; Z79.82 Long term (current) use of aspirin; Z79.52 Long term (current) use of systemic steroids; Z79.4 Long term (current) use of insulin; Z86.19 Personal history of other infectious and parasitic diseases; Z87.01 Personal history of pneumonia (recurrent); Z95.5 Presence of coronary angioplasty implant and graft; Z85.72 Personal history of non-Hodgkin lymphomas; Z90.49 Acquired absence of other specified parts of digestive tract; Z86.14 Personal history of Methicillin resistant Staphylococcus aureus infection; Z87.19 Personal history of other diseases of the digestive system; Z90.2 Acquired absence of lung [part of]
CPT/HCPCS: 36415; 71020; 80048; 80053; 81003; 83036; 83605; 83735; 84484; 85025; 85610; 85730; 87040; 87070; 87086; 87205; 93005; 94640; 94760; 96361; 96365; 99291

== ENCOUNTER → 2017-03-24 | Outpatient (CLI) | payer MEDICARE ==
--- NOTE | 2017-03-24 09:17 | CT ---
EXAMINATION TYPE: CT sinus wo con DATE OF EXAM: 03/24/2017 COMPARISON: NONE HISTORY: Acute sinusitis CT DLP: 562.70 mGycm CONTRAST: None The paranasal sinuses are examined in the axial plane at 2 mm thick sections. Reconstructed images i n the coronal plane were obtained. Mucosal thickening is through the bilateral maxillary sinuses. Air-fluid levels are present compatibl e with acute maxillary sinusitis. There is near complete opacification of the ethmoid air cells. The frontal sinuses appear clear. Mild mucosal thickening is within the sphenoid sinuses. The septum is evaluated. There is septal deviation to the right anteriorly and left posteriorly. Not e is made of a posterior left septal spur.. The ostiomeatal units are obstructed bilaterally. Note is made of fluid filling right mastoid air cells. IMPRESSIONS: 1. Clinical correlation recommended for acute maxillary sinusitis. Pansinus disease is also present within ethmoid air cells and sphenoid sinuses. 2. Clinical correlation recommended for right mastoiditis.
--- NOTE | 2017-03-24 09:37 | CT ---
EXAMINATION TYPE: CT iac wo con DATE OF EXAM: 03/24/2017 COMPARISON: NONE HISTORY: Hearing loss, tinnitus CT DLP: 150.00 mGycm Automated exposure control for dose reduction was used. FINDINGS: There is opacification and air-fluid levels within the maxillary sinuses and opacification of ethmoid air cells mucosal thickening within sphenoid sinuses. Correlate for pansinusitis. See complete repor t within the CT sinuses 03/24/2017. There is a fluid-filled right mastoid air cells. No septal destruction is evident. There is some flui d within the middle ear. Findings are compatible with acute mastoiditis. Middle ear infection should also be considered. Incus and malleus appear to have normal orientation bilaterally. Semicircular canals are normal. Inte rnal auditory canals appear normal without expansion or erosion. Studies performed without intravenou s contrast. No obvious cerebellar pontine angle masses or intracanalicular masses are evident. Left mastoid air cells are clear. Jugular bulbs appears somewhat high riding bilaterally. External au ditory canals are clear. IMPRESSION: 1. Acute right mastoiditis. 2. Right middle ear infection may be present as well. 3. Pansinus disease. Acute maxillary sinusitis bilaterally is present.
== END | disposition home or self-care (01) ==
LOC: RADCTMAIN 08:08
PROVIDERS: ATTEND Nurse Practitioner Family
DX: H70.001 Acute mastoiditis without complications, right ear (principal); J01.00 Acute maxillary sinusitis, unspecified; J32.3 Chronic sphenoidal sinusitis; J32.2 Chronic ethmoidal sinusitis; H93.19 Tinnitus, unspecified ear
CPT/HCPCS: 70480; 70486

== ENCOUNTER → 2017-04-18 | Outpatient (CLI) | payer MEDICARE ==
[2017-04-18 16:50] LABS: Potassium 3.6 mmol/L (3.5-5.1)
== END | disposition home or self-care (01) ==
LOC: LABWHC1 15:29
PROVIDERS: ATTEND Otolaryngology
DX: E08.9 Diabetes mellitus due to underlying condition without complications (principal)
CPT/HCPCS: 36415; 80051; 82947

== ENCOUNTER → 2017-05-18 | Outpatient (CLI) | payer MEDICARE | END | disposition home or self-care (01) | LOC: LABWHC1 09:20 | PROVIDERS: ATTEND Internal Medicine Endocrinology, Diabetes & Metabolism | DX: E11.65 Type 2 diabetes mellitus with hyperglycemia (principal) | CPT/HCPCS: 36415; 82947; 84681 ==

== ENCOUNTER → 2017-07-20 | Outpatient (CLI) | payer MEDICARE ==
[2017-07-20 15:18] LABS: HCT 39.7 % (39.0-53.0); HGB 13.3 gm/dL (13.0-17.5); MCH 30.2 pg (25.0-35.0); MCHC 33.6 g/dL (31.0-37.0); MCV 89.9 fL (80.0-100.0); Mean Platelet Volume 6.8; Platelet Count 228 k/uL (150-450); RBC 4.41 m/uL (4.30-5.90); WBC 7.3 k/uL (3.8-10.6)
[2017-07-20 15:30] LABS: Potassium 4.1 mmol/L (3.5-5.1)
== END | disposition home or self-care (01) ==
LOC: LABPAT 15:01
PROVIDERS: ATTEND Internal Medicine Cardiovascular Disease
DX: Z01.812 Encounter for preprocedural laboratory examination (principal); I25.10 Atherosclerotic heart disease of native coronary artery without angina pectoris
CPT/HCPCS: 80051; 82565; 84520; 85027

== ENCOUNTER → 2017-09-14 | Outpatient (CLI) | payer MEDICARE ==
[2017-09-14 16:18] LABS: HCT 41.6 % (39.0-53.0); HGB 13.9 gm/dL (13.0-17.5); MCHC 33.4 g/dL (31.0-37.0); MCV 87.1 fL (80.0-100.0); Mean Platelet Volume 6.4; Platelet Count 275 k/uL (150-450); RBC 4.78 m/uL (4.30-5.90); RDW 15.4 % (11.5-15.5)
== END | disposition home or self-care (01) ==
LOC: LABPAT 15:30
PROVIDERS: ATTEND Internal Medicine Cardiovascular Disease
DX: Z01.812 Encounter for preprocedural laboratory examination (principal); I34.0 Nonrheumatic mitral (valve) insufficiency
CPT/HCPCS: 36415; 85027

== ENCOUNTER → 2017-09-21 | Day surgery (SDC) | payer MEDICARE ==
[2017-09-15 13:56] VITALS: BMI 25.8
[~2017-09-21] MED LIST changes: +ALPRAZolam 0.25 MG TAB PO PRN; +ASPIRIN 325 MG TAB PO ONE; +BENZOCAINE SPRAY 1 CAN MUCOUS MEM ONE; +IOPAMIDOL-370 125ML BTL INJ ONE; +IV FLUID CONTINUATION 900 ML IV ONE; -LACTATED RINGERS 1,000 ML IV SCH; -LIDOCAINE 1% 20 ML VIAL (10MG/ML) FOR IV START INTRADERMA PRN; +LIDOCAINE 1% INJ 10MG/ML (20 ML MDV) ONE; +LIDOCAINE 1% INJ 10MG/ML (20 ML MDV) SQ ONE; +MIDAZOLAM 2 MG/2 ML VIAL IV ONE; +MIDAZOLAM 2 MG/2 ML VIAL ONE; +RX INFO: IV CONTRAST WAS GIVEN 1 EACH MISC MISCELLANE PRN; +SODIUM CHLORIDE 0.9% 1,000 ML IV SCH; +SODIUM CHLORIDE 0.9% 1,000 ML in EMPTY BAG 1 BAG IV ONE; +fentaNYL (PF) 50 MCG/ML 2 ML AMP IV ONE; +fentaNYL (PF) 50 MCG/ML 2 ML AMP ONE
[2017-09-21 07:00] VITALS: TEMP 97.8
[2017-09-21 07:04] LABS: Glucose,Whole Blood 153 mg/dL (75-99)
--- NOTE | 2017-09-21 08:29 | ECHOT ---
TRANSESOPHAGEAL ECHOCARDIOGRAM INDICATION: Mitral regurgitation. PROCEDURE NOTE: After obtaining informed consent, transesophageal echocardiogram was performed in left lateral position using an Omni plane probe. Local and IV sedation were obtained using Xylocaine spray and 1 mg of Versed. Patient tolerated the procedure well without any obvious immediate complications. Patient received moderate conscious sedation and total sedation time was 10 minutes. FINDINGS: 1. Mitral valve appears anatomically normal. There is poor coaptation of the mitral valve leaflets with severe mitral regurgitation, which is mostly central that is somewhat anteriorly directed. 2. Left atrium appears mildly enlarged. Right atrium and right ventricle seen within normal limits. 3. Interatrial septum: There is no evidence of [id number] shunt by color-flow Doppler or [id number] shunt by agitated saline contrast study. 4. Tricuspid valve shows moderate tricuspid regurgitation. 5. Aortic valve is a 3-leaflet valve appears calcified. It shows mild aortic regurgitation. 6. Left ventricle has normal size, shows preserved LV function with ejection fraction of 50%. CONCLUSIONS: 1. Severe central mitral regurgitation. 2. Normal left ventricular systolic function. MMODL / IJN: [id number] /
--- NOTE | 2017-09-21 08:51 | CC ---
CARDIAC CATHETERIZATION REPORT INDICATION: Mitral regurgitation. PROCEDURE NOTE: After obtaining informed consent, left heart catheterization, coronary angiogram and LV gram are performed via the right femoral artery using standard Pankaj catheters. The patient tolerated the procedure well without any obvious immediate complications. Patient received moderate conscious sedation and total sedation time was 17 minutes. A femoral angiogram was performed and Angio-Seal was deployed for hemostasis. FINDINGS: 1. HEMODYNAMICS: Left ventricular end-diastolic pressure is 10 to 12 mm. There is no significant gradient across the aortic valve. 2. LEFT VENTRICULOGRAM: Left ventriculogram is performed in ISAACS position and shows a dilated left ventricle with mild LV dysfunction with an ejection fraction of around 40% to 45%. There is apical hypokinesis noted. 3. ANGIOGRAPHIC DATA: Left main coronary artery: Left main coronary artery is a normal-sized vessel, appears calcified but is free of significant stenosis. It divides into left anterior descending coronary artery and circumflex coronary artery. LAD was previously stented in the proximal part, gives off a large caliber diagonal branch. The stent appears patent. LAD is free of significant disease. Circumflex coronary artery is a nondominant vessel, shows a mild atherosclerotic plaque in the ostial portion and gives off a high OM branch that shows a 40% stenosis. Right coronary artery is a large dominant vessel that shows a mild atherosclerotic plaque in its midportion. CONCLUSIONS: 1. Patent stent within the proximal left anterior descending artery. 2. Mild nonobstructive disease involving circumflex coronary artery, OM branch and cabazon circumflex coronary artery. 3. One to two plus mitral regurgitation. 4. Ischemic cardiomyopathy. PLAN: I reviewed the cardiac catheterization findings with the patient, told him that we will continue with watchful waiting at this stage as I am not sure if the mitral regurgitation is severe enough for him to benefit from having mitral valve repair at this time and I I believe his heart failure symptoms are mainly related to the LV dysfunction. MMODL / IJN: [id number] /
[2017-09-21 13:05] VITALS: BP 125/64; PULSE 68; RESP 18
== END | disposition home or self-care (01) ==
LOC: CATHCVL 06:21
PROVIDERS: ATTEND Internal Medicine Cardiovascular Disease
DX: I08.3 Combined rheumatic disorders of mitral, aortic and tricuspid valves (principal); I25.10 Atherosclerotic heart disease of native coronary artery without angina pectoris; I48.0 Paroxysmal atrial fibrillation; E11.9 Type 2 diabetes mellitus without complications; I25.5 Ischemic cardiomyopathy; E78.5 Hyperlipidemia, unspecified; Z82.49 Family history of ischemic heart disease and other diseases of the circulatory system; Z79.82 Long term (current) use of aspirin; Z79.84 Long term (current) use of oral hypoglycemic drugs; Z79.899 Other long term (current) drug therapy; Z95.5 Presence of coronary angioplasty implant and graft; Z85.72 Personal history of non-Hodgkin lymphomas
CPT/HCPCS: 93312; 93320; 93325; 93458; C1760; C1894; C1769; J2250; J2001; J3010; Q9967

== ENCOUNTER 2018-04-30 18:11 | Emergency (ER) | payer MEDICARE ==
[2018-04-30] MEDS ORDERED: SODIUM CHLORIDE 0.9% 1,000 ML IV STA (18:40)
--- NOTE | 2018-04-30 18:40 | ED ---
Dizziness HPI - General Chief Complaint: Dizziness Stated Complaint: weakness, dizziness Time Seen by Provider: 04/30/18 18:40 Source: patient, RN notes reviewed, old records reviewed Mode of arrival: ambulatory Limitations: no limitations - History of Present Illness Initial Comments: This is a 72-year-old male the ER for evaluation. Patient has multiple complaints, complaints is on headaches and fullness dizziness weakness abdominal pain with nausea no vomiting no diarrhea. No fevers. Patient is and has had CVA 4. Symptoms 1 month he has seen his primary care doctor with no significant findings or improvement. Patient does not feel relatively increasingly weak and increasingly more anorexic with decreased appetite MD Complaint: dizziness, lightheadedness, other (Abdominal pain) -: month(s) Timing: gradual onset, intermittent Description: lightheadedness, other (Headache) History of Same: Yes History of Trauma: No Severity: moderate Improves With: nothing Worsens With: movement Associated Symptoms: loss of appetite, malaise, weakness - Related Data Home Medications Medication Instructions Recorded Confirmed Furosemide [Lasix] 40 mg PO BID 08/25/16 04/30/18 Aspirin [Adult Low Dose Aspirin EC] 81 mg PO DAILY 10/27/16 04/30/18 Potassium Chloride [K-Tab ER] 20 meq PO DAILY 10/27/16 04/30/18 Acyclovir [Zovirax] 400 mg PO BID 07/26/17 04/30/18 Multivit-Min/FA/Lycopen/Lutein 1 tab PO DAILY 07/26/17 04/30/18 [Centrum Silver Men Tablet] metFORMIN HCL [Glucophage] 500 mg PO BID 07/26/17 04/30/18 Metoprolol Tartrate [Lopressor] 25 mg PO BID 09/15/17 04/30/18 Amoxic-Pot Clav 875-125Mg 1 tab PO Q12HR 04/30/18 04/30/18 [Augmentin 875-125] Atorvastatin [Lipitor] 40 mg PO DAILY 04/30/18 04/30/18 Glimepiride [Amaryl] 2 mg PO DAILY 04/30/18 04/30/18 Insulin Glargine,Hum.rec.anlog 25 units SQ HS 04/30/18 04/30/18 [Marley Shelton] Allergies Allergy/AdvReac Type Severity Reaction Status Date / Time No Known Allergies Allergy Verified 04/30/18 18:39 Review of Systems ROS Statement: Those systems with pertinent positive or pertinent negative responses have been documented in the HPI. ROS Other: All systems not noted in ROS Statement are negative. Past Medical History Past Medical History: Coronary Artery Disease (CAD), Cancer, Diabetes Mellitus, Hypertension, Pneumonia Additional Past Medical History / Comment(s): lymphoma 4 times-yrs since chemo. Has a history of histoplasmosis which required the lung resection -HAS SOME SOB, History of Any Multi-Drug Resistant Organisms: MRSA Date of last positivie culture/infection: 01/12/18 MDRO Source:: EAR Past Surgical History: Cholecystectomy, Heart Catheterization With Stent, Hernia Repair Additional Past Surgical History / Comment(s): stem cell transplant/ LUNG RESECTION Past Anesthesia/Blood Transfusion Reactions: No Reported Reaction Additional Past Anesthesia/Blood Transfusion Reaction / Comment(s): no hx blood transfusion Date of Last Stent Placement:: 01-10-2013 Past Psychological History: No Psychological Hx Reported Smoking Status: Never smoker Past Alcohol Use History: None Reported Past Drug Use History: None Reported - Past Family History Mother Family Medical History: No Reported History General Exam Limitations: no limitations General appearance: alert, in no apparent distress Head exam: Present: atraumatic, normocephalic, normal inspection Eye exam: Present: normal appearance, PERRL, EOMI. Absent: scleral icterus, conjunctival injection, periorbital swelling ENT exam: Present: normal exam, mucous membranes moist Neck exam: Present: normal inspection. Absent: tenderness, meningismus, lymphadenopathy Respiratory exam: Present: normal lung sounds bilaterally. Absent: respiratory distress, wheezes, rales, rhonchi, stridor Cardiovascular Exam: Present: regular rate, normal rhythm, normal heart sounds. Absent: systolic murmur, diastolic murmur, rubs, gallop, clicks GI/Abdominal exam: Present: soft, normal bowel sounds. Absent: distended, tenderness, guarding, rebound, rigid Extremities exam: Present: normal inspection, full ROM, normal capillary refill. Absent: tenderness, pedal edema, joint swelling, calf tenderness Back exam: Present: normal inspection Neurological exam: Present: alert, oriented X3, CN II-XII intact Psychiatric exam: Present: normal affect, normal mood Skin exam: Present: warm, dry, intact, normal color. Absent: rash Course Vital Signs 04/30/18 04/30/18 04/30/18 18:18 19:15 20:52 Temperature 97.6 F Pulse Rate 74 74 73 Respiratory 18 20 16 Rate Blood Pressure 123/73 145/89 157/83 O2 Sat by Pulse 98 98 95 Oximetry 04/30/18 04/30/18 22:29 23:24 Temperature 97.8 F Pulse Rate 73 92 Respiratory 21 16 Rate Blood Pressure 130/75 O2 Sat by Pulse 95 95 Oximetry - Reevaluation(s) Reevaluation #1: 04/30/18 19:53 Medical records reviewed EKG Findings - EKG Comments: EKG Findings:: EKG shows sinus rhythm rate of 73, MN 104, QRS 112, QTc 334 Medical Decision Making - Medical Decision Making 72 male the ER for evaluation not feeling well. Not feeling well times one month. Patient concern for recurrent cancer other other issues. Patient has full body CT labwork which are normal. Patient encouraged, reassured and can be discharged home - Lab Data Result diagrams: 04/30/18 19:15 04/30/18 19:15 Lab Results 04/30/18 04/30/18 04/30/18 Range/Units 19:15 19:15 19:15 WBC 8.1 (3.8-10.6) k/uL RBC 4.65 (4.30-5.90) m/uL Hgb 14.1 (13.0-17.5) gm/dL Hct 41.8 (39.0-53.0) % MCV 89.8 (80.0-100.0) fL MCH 30.3 (25.0-35.0) pg MCHC 33.8 (31.0-37.0) g/dL RDW 14.1 (11.5-15.5) % Plt Count 248 (150-450) k/uL Neutrophils % 65 % Lymphocytes % 20 % Monocytes % 7 % Eosinophils % 2 % Basophils % 0 % Neutrophils # 5.3 (1.3-7.7) k/uL Lymphocytes # 1.6 (1.0-4.8) k/uL Monocytes # 0.6 (0-1.0) k/uL Eosinophils # 0.1 (0-0.7) k/uL Basophils # 0.0 (0-0.2) k/uL Manual Slide Review Performed PT (9.0-12.0) sec INR (<1.2) APTT (22.0-30.0) sec Sodium 136 L (137-145) mmol/L Potassium 3.2 L (3.5-5.1) mmol/L Chloride 95 L (98-107) mmol/L Carbon Dioxide 30 (22-30) mmol/L Anion Gap 11 mmol/L BUN 25 H (9-20) mg/dL Creatinine 1.09 (0.66-1.25) mg/dL Est GFR (CKD-EPI)AfAm 78 (>60 ml/min/1.73 sqM) Est GFR (CKD-EPI)NonAf 68 (>60 ml/min/1.73 sqM) Glucose 164 H (74-99) mg/dL Plasma Lactic Acid Ko 1.9 (0.7-2.0) mmol/L Calcium 9.7 (8.4-10.2) mg/dL Phosphorus 3.1 (2.5-4.5) mg/dL Magnesium 1.4 L (1.6-2.3) mg/dL Total Bilirubin 0.6 (0.2-1.3) mg/dL AST 26 (17-59) U/L ALT 37 (21-72) U/L Alkaline Phosphatase 64 (38-126) U/L Troponin I (0.000-0.034) ng/mL NT-Pro-B Natriuret Pep pg/mL Total Protein 6.4 (6.3-8.2) g/dL Albumin 4.1 (3.5-5.0) g/dL Lipase 98 (23-300) U/L TSH 1.630 (0.465-4.680) mIU/L Urine Color Urine Appearance (Clear) Urine pH (5.0-8.0) Ur Specific [place] (1.001-1.035) Urine Protein (Negative) Urine Glucose (UA) (Negative) Urine Ketones (Negative) Urine Blood (Negative) Urine Nitrite (Negative) Urine Bilirubin (Negative) Urine Urobilinogen (<2.0) mg/dL Ur Leukocyte Esterase (Negative) 04/30/18 04/30/18 04/30/18 Range/Units 19:15 19:15 19:15 WBC (3.8-10.6) k/uL RBC (4.30-5.90) m/uL Hgb (13.0-17.5) gm/dL Hct (39.0-53.0) % MCV (80.0-100.0) fL MCH (25.0-35.0) pg MCHC (31.0-37.0) g/dL RDW (11.5-15.5) % Plt Count (150-450) k/uL Neutrophils % % Lymphocytes % % Monocytes % % Eosinophils % % Basophils % % Neutrophils # (1.3-7.7) k/uL Lymphocytes # (1.0-4.8) k/uL Monocytes # (0-1.0) k/uL Eosinophils # (0-0.7) k/uL Basophils # (0-0.2) k/uL Manual Slide Review PT 10.2 (9.0-12.0) sec INR 0.9 (<1.2) APTT 30.6 H (22.0-30.0) sec Sodium (137-145) mmol/L Potassium (3.5-5.1) mmol/L Chloride (98-107) mmol/L Carbon Dioxide (22-30) mmol/L Anion Gap mmol/L BUN (9-20) mg/dL Creatinine (0.66-1.25) mg/dL Est GFR (CKD-EPI)AfAm (>60 ml/min/1.73 sqM) Est GFR (CKD-EPI)NonAf (>60 ml/min/1.73 sqM) Glucose (74-99) mg/dL Plasma Lactic Acid Ko (0.7-2.0) mmol/L Calcium (8.4-10.2) mg/dL Phosphorus (2.5-4.5) mg/dL Magnesium (1.6-2.3) mg/dL Total Bilirubin (0.2-1.3) mg/dL AST (17-59) U/L ALT (21-72) U/L Alkaline Phosphatase (38-126) U/L Troponin I <0.012 (0.000-0.034) ng/mL NT-Pro-B Natriuret Pep 354 pg/mL Total Protein (6.3-8.2) g/dL Albumin (3.5-5.0) g/dL Lipase (23-300) U/L TSH (0.465-4.680) mIU/L Urine Color Urine Appearance (Clear) Urine pH (5.0-8.0) Ur Specific [place] (1.001-1.035) Urine Protein (Negative) Urine Glucose (UA) (Negative) Urine Ketones (Negative) Urine Blood (Negative) Urine Nitrite (Negative) Urine Bilirubin (Negative) Urine Urobilinogen (<2.0) mg/dL Ur Leukocyte Esterase (Negative) 04/30/18 Range/Units 20:05 WBC (3.8-10.6) k/uL RBC (4.30-5.90) m/uL Hgb (13.0-17.5) gm/dL Hct (39.0-53.0) % MCV (80.0-100.0) fL MCH (25.0-35.0) pg MCHC (31.0-37.0) g/dL RDW (11.5-15.5) % Plt Count (150-450) k/uL Neutrophils % % Lymphocytes % % Monocytes % % Eosinophils % % Basophils % % Neutrophils # (1.3-7.7) k/uL Lymphocytes # (1.0-4.8) k/uL Monocytes # (0-1.0) k/uL Eosinophils # (0-0.7) k/uL Basophils # (0-0.2) k/uL Manual Slide Review PT (9.0-12.0) sec INR (<1.2) APTT (22.0-30.0) sec Sodium (137-145) mmol/L Potassium (3.5-5.1) mmol/L Chloride (98-107) mmol/L Carbon Dioxide (22-30) mmol/L Anion Gap mmol/L BUN (9-20) mg/dL Creatinine (0.66-1.25) mg/dL Est GFR (CKD-EPI)AfAm (>60 ml/min/1.73 sqM) Est GFR (CKD-EPI)NonAf (>60 ml/min/1.73 sqM) Glucose (74-99) mg/dL Plasma Lactic Acid Ko (0.7-2.0) mmol/L Calcium (8.4-10.2) mg/dL Phosphorus (2.5-4.5) mg/dL Magnesium (1.6-2.3) mg/dL Total Bilirubin (0.2-1.3) mg/dL AST (17-59) U/L ALT (21-72) U/L Alkaline Phosphatase (38-126) U/L Troponin I (0.000-0.034) ng/mL NT-Pro-B Natriuret Pep pg/mL Total Protein (6.3-8.2) g/dL Albumin (3.5-5.0) g/dL Lipase (23-300) U/L TSH (0.465-4.680) mIU/L Urine Color Yellow Urine Appearance Clear (Clear) Urine pH 6.5 (5.0-8.0) Ur Specific [place] 1.019 (1.001-1.035) Urine Protein Trace H (Negative) Urine Glucose (UA) Negative (Negative) Urine Ketones Negative (Negative) Urine Blood Negative (Negative) Urine Nitrite Negative (Negative) Urine Bilirubin Negative (Negative) Urine Urobilinogen <2.0 (<2.0) mg/dL Ur Leukocyte Esterase Negative (Negative) - Radiology Data Radiology results: report reviewed (CT chest and pelvis is negative for acute disease), image reviewed Disposition Clinical Impression: Weakness acquired in ICU Disposition: HOME SELF-CARE Condition: Good Instructions (If sedation given, give patient instructions): Dizziness (ED) Is patient prescribed a controlled substance at d/c from ED?: No Referrals: Angela Galindo MD [Primary Care Provider] - 1-2 days
[2018-04-30] MEDS ORDERED: ONDANSETRON 4 MG/2 ML VIAL IVP STA (19:04)
[2018-04-30] MEDS ORDERED: MORPHINE SULFATE 4 MG/ML SYRINGE IVP STA (19:04)
[2018-04-30 19:43] LABS: Basophils % (A) 0 %; Eosinophils # (A) 0.1 k/uL (0-0.7); Eosinophils % (A) 2 %; HCT 41.8 % (39.0-53.0); HGB 14.1 gm/dL (13.0-17.5); Lymphocytes # (A) 1.6 k/uL (1.0-4.8); Lymphocytes % (A) 20 %; MCH 30.3 pg (25.0-35.0); MCHC 33.8 g/dL (31.0-37.0); MCV 89.8 fL (80.0-100.0); Mean Platelet Volume 7.2; Monocytes # (A) 0.6 k/uL (0-1.0); Monocytes % (A) 7 %; Neutrophils # (A) 5.3 k/uL (1.3-7.7); Neutrophils % (A) 65 %; Platelet Count 248 k/uL (150-450); RBC 4.65 m/uL (4.30-5.90); RDW 14.1 % (11.5-15.5); WBC 8.1 k/uL (3.8-10.6)
[2018-04-30 19:55] LABS: INR 0.9 (<1.2); Partial Thromboplastin Time 30.6 sec (22.0-30.0); Prothrombin Time 10.2 sec (9.0-12.0)
[2018-04-30 19:59] LABS: Albumin 4.1 g/dL (3.5-5.0); Calcium 9.7 mg/dL (8.4-10.2); Magnesium 1.4 mg/dL (1.6-2.3); Phosphorus 3.1 mg/dL (2.5-4.5); Potassium 3.2 mmol/L (3.5-5.1); Total Bilirubin 0.6 mg/dL (0.2-1.3); Total Protein 6.4 g/dL (6.3-8.2)
--- NOTE | 2018-04-30 20:02 | CT ---
EXAMINATION: CT brain wo con DATE AND TIME: 04/30/2018 7:47 PM CLINICAL INDICATION: PHH; weakness TECHNIQUE: Standard departmental protocol.; 1099.4; COMPARISON: 03/24/2017 FINDINGS: The calvarium is intact. There is no intracranial hemorrhage. There is no intracranial mass or mass effect. No definite new intra-axial or extra-axial attenuation defect. The frontal sinuses are clear. However, the sphenoid sinus, bilateral ethmoid sinuses and the mastoid sinuses show prominent opacification which can correlate with a clinical diagnosis of sinusitis. The se findings were seen on the prior study. The middle ear cavities and mastoid sinus air cells are clear. The orbits are unremarkable. IMPRESSION: NO ACUTE INTRACRANIAL PROCESS.
--- NOTE | 2018-04-30 20:18 | XR ---
EXAMINATION TYPE: XR abdomen acute w cxr -4V DATE OF EXAM: 04/30/2018 COMPARISON: NONE HISTORY: Pain and weakness TECHNIQUE: 2 supine abdominal radiographs, upright abdomen and upright AP chest FINDINGS: CHEST: Cardiac silhouette is mildly enlarged. There is a triangular band of added opacity with air br onchograms in the retrocardiac position, consistent with left lower lobe atelectasis and/or bronchopn eumonia. Pleural spaces are negative. ABDOMEN PELVIS: There is no evidence for pneumoperitoneum. The bowel gas pattern is unremarkable as t here is air throughout nondilated small and large bowel. No sizeable air fluid levels. No mass effect s are seen. IMPRESSION: 1. Left lower lobe atelectasis, can correlate with a clinical diagnosis of pneumonia. Would recommen d six-week follow-up PA and lateral chest radiographs to prove resolution of the findings. 2. No acute abdominal pelvic radiographic process.
[2018-04-30 21:26] LABS: Appearance,Urine Clear (Clear); Bilirubin,Urine Negative (Negative); Blood,Urine Negative (Negative); Color,Urine Yellow; Glucose,Urine (UA) Negative (Negative); Ketones,Urine Negative (Negative); Leukocyte Esterase,Urine Negative (Negative); Nitrite,Urine Negative (Negative); PH, Urine 6.5 (5.0-8.0); Protein,Urine Trace (Negative); Specific Gravity,Urine 1.019 (1.001-1.035); Urobilinogen,Urine <2.0 mg/dL (<2.0)
--- NOTE | 2018-04-30 22:51 | CT ---
EXAM: CT Chest With Intravenous Contrast CLINICAL HISTORY: Pain TECHNIQUE: Axial computed tomography images of the chest with intravenous contrast. CTDI is 0.05, 0.085, 7.7, 8.9 mGy and DLP is 969.1 mGy-cm. This CT exam was performed using one or more of the following dose reduction techniques: automated exposure control, adjustment of the mA and/or kV according to patient size, and/or use of iterative reconstruction technique. COMPARISON: No relevant prior studies available. FINDINGS: Lungs: Mild bilateral peribronchial thickening. Bilateral subpleural reticulation worst in the lung bases. No consolidation or mass. Pleural space: No pneumothorax. No significant effusion. Heart: Calcified aortic valve leaflets. Small pericardial effusion. Mediastinum: Small hiatal hernia. Bones/joints: No acute osseous abnormality. Postsurgical changes in the upper thoracic spine. No dislocation. Soft tissues: Unremarkable. Vasculature: Atherosclerosis of the thoracic aorta and coronary arteries. No thoracic aortic aneurysm or dissection. Lymph nodes: Calcified bilateral hilar and mediastinal lymph nodes are compatible with the sequela prior granulomatous disease. IMPRESSION: No CT evidence of an acute cardiothoracic abnormality. EXAM: CT Abdomen and Pelvis With Intravenous Contrast CLINICAL HISTORY: Pain TECHNIQUE: Axial computed tomography images of the abdomen and pelvis with intravenous contrast. CTDI is 0.05, 0.085, 7.7, 8.9 mGy and DLP is 969.1 mGy-cm. This CT exam was performed using one or more of the following dose reduction techniques: automated exposure control, adjustment of the mA and/or kV according to patient size, and/or use of iterative reconstruction technique. COMPARISON: No relevant prior studies available. FINDINGS: ABDOMEN: Liver: Unremarkable. Gallbladder and bile ducts: Gallbladder is absent. Pancreas: Unremarkable. Spleen: Unremarkable. Adrenals: Indeterminate 2.4 cm left adrenal nodule. Kidneys and ureters: Subcentimeter focus of hypoattenuation in the left kidney is too small to characterize. No hydronephrosis. Stomach and bowel: Unremarkable. Bowel is nondilated. PELVIS: Appendix: No findings to suggest acute appendicitis. Bladder: Unremarkable. Reproductive: Unremarkable as visualized. ABDOMEN and PELVIS: Intraperitoneal space: Unremarkable. No free air. Bones/joints: No acute osseous abnormality. Degenerative changes of the spine. Soft tissues: Unremarkable. Vasculature: Atherosclerosis of the abdominal aorta. No abdominal aortic aneurysm. Lymph nodes: Unremarkable. IMPRESSION: No acute findings. Indeterminate 2.4 cm left adrenal nodule. ACR White Paper guidelines (Janet, et al. JACR 2010; 7(10):377-95) suggest biopsy or resection. Consider preoperative biochemical testing to exclude pheochromocytoma.
[2018-04-30 23:26] VITALS: BP 130/75; PULSE 92; RESP 16; TEMP 97.8
== END 2018-04-30 23:29 | disposition home or self-care (01) ==
LOC: EC 18:11
DX: R53.1 Weakness (principal); R42 Dizziness and giddiness; R51 Headache; I25.10 Atherosclerotic heart disease of native coronary artery without angina pectoris; E11.9 Type 2 diabetes mellitus without complications; I10 Essential (primary) hypertension; Z79.82 Long term (current) use of aspirin; Z79.4 Long term (current) use of insulin; Z79.899 Other long term (current) drug therapy; Z95.5 Presence of coronary angioplasty implant and graft; Z85.72 Personal history of non-Hodgkin lymphomas; Z94.84 Stem cells transplant status
CPT/HCPCS: 99285; 96374; 96375; 96361; 36415; 93005; 83880; 80053; 83605; 83690; 83735; 84100; 84443; 84484; 85025; 85610; 85730; 81003; 74022; 70450; 71260; 74177; J2270; J2405; Q9967

== ENCOUNTER 2018-05-08 16:30 | Observation (INO) | payer MEDICARE ==
[2018-05-08] MEDS ORDERED: IBUPROFEN 600 MG TAB PO STA (17:03)
[2018-05-08] MEDS ORDERED: ACETAMINOPHEN TAB 500 MG TAB PO STA (17:03)
[2018-05-08] MEDS: SODIUM CHLORIDE 0.9% 500 ML 500 ML IV SCH (17:13)
--- NOTE | 2018-05-08 17:26 | ED ---
General Adult HPI - General Chief complaint: Nausea/Vomiting/Diarrhea Stated complaint: N/V Time Seen by Provider: 05/08/18 16:40 Source: patient, EMS, RN notes reviewed Mode of arrival: EMS Limitations: no limitations - History of Present Illness Initial comments: This is a 72-year-old male who presents emergency Department complaining of two- week history of feeling very tired and nauseated. Patient states his weakness is not improved over the 2 week period. Patient states he was seen in the emergency department and discharged home. Patient states as of last night he started vomiting throughout the whole night and all day today. Patient states he continues to feel extremely weak. Patient denies knowing that he has a fever. Patient states he went and followed up with primary medical care doctor today and she thought he might have pneumonia. Patient denies any chest pain patient denies any shortness of breath or difficulty breathing. Patient denies any headache patient denies numbness or weakness. Patient denies any abdominal pain. Patient states he vomited multiple times yesterday and today patient denies any diarrhea. Patient denies any recent injury or trauma. - Related Data Home Medications Medication Instructions Recorded Confirmed Furosemide [Lasix] 40 mg PO BID 08/25/16 05/08/18 Aspirin [Adult Low Dose Aspirin EC] 81 mg PO DAILY 10/27/16 05/08/18 Acyclovir [Zovirax] 400 mg PO BID 07/26/17 05/08/18 Multivit-Min/FA/Lycopen/Lutein 1 tab PO DAILY 07/26/17 05/08/18 [Centrum Silver Men Tablet] metFORMIN HCL [Glucophage] 500 mg PO BID 07/26/17 05/08/18 Metoprolol Tartrate [Lopressor] 25 mg PO BID 09/15/17 05/08/18 Atorvastatin [Lipitor] 40 mg PO DAILY 04/30/18 05/08/18 Glimepiride [Amaryl] 2 mg PO DAILY 04/30/18 05/08/18 Insulin Glargine,Hum.rec.anlog 25 units SQ HS 04/30/18 05/08/18 [Marley Wilkesostdina] Ipratropium-Albuterol Nebulize 3 ml INHALATION RT-Q6H PRN 05/08/18 05/08/18 [Duoneb 0.5 mg-3 mg/3 ml Soln] Potassium Chloride ER [K-Dur 10] 10 meq PO DAILY 05/08/18 05/08/18 Allergies Allergy/AdvReac Type Severity Reaction Status Date / Time No Known Allergies Allergy Verified 05/08/18 17:03 Review of Systems ROS Statement: Those systems with pertinent positive or pertinent negative responses have been documented in the HPI. ROS Other: All systems not noted in ROS Statement are negative. Past Medical History Past Medical History: Coronary Artery Disease (CAD), Cancer, Diabetes Mellitus, Hypertension, Pneumonia Additional Past Medical History / Comment(s): lymphoma 4 times-yrs since chemo. Has a history of histoplasmosis which required the lung resection -HAS SOME SOB, History of Any Multi-Drug Resistant Organisms: MRSA Date of last positivie culture/infection: 01/12/18 MDRO Source:: EAR Past Surgical History: Cholecystectomy, Heart Catheterization With Stent, Hernia Repair Additional Past Surgical History / Comment(s): stem cell transplant/ LUNG RESECTION Past Anesthesia/Blood Transfusion Reactions: No Reported Reaction Additional Past Anesthesia/Blood Transfusion Reaction / Comment(s): no hx blood transfusion Date of Last Stent Placement:: 01-10-2013 Past Psychological History: No Psychological Hx Reported Smoking Status: Never smoker Past Alcohol Use History: None Reported Past Drug Use History: None Reported - Past Family History Mother Family Medical History: No Reported History General Exam - General Exam Comments Initial Comments: GENERAL: Patient is well-developed and well-nourished. Patient is nontoxic and well- hydrated and is in mild distress. ENT: Neck is soft and supple. No significant lymphadenopathy is noted. Oropharynx is clear. Moist mucous membranes. Neck has full range of motion without eliciting any pain. EYES: The sclera were anicteric and conjunctiva were pink and moist. Extraocular mo vements were intact and pupils were equal round and reactive to light. Eyelids were unremarkable. PULMONARY: Unlabored respirations. Good breath sounds bilaterally. No audible rales rhonchi or wheezing was noted. CARDIOVASCULAR: There is a regular rate and rhythm without any murmurs gallops or rubs. ABDOMEN: Soft and nontender with normal bowel sounds. No palpable organomegaly was noted. There is no palpable pulsatile mass. SKIN: Skin is clear with no lesions or rashes and otherwise unremarkable. NEUROLOGIC: Patient is alert and oriented x3. Cranial nerves II through XII are grossly intact. Motor and sensory are also intact. Normal speech, volume and content. Symmetrical smile. MUSCULOSKELETAL: Normal extremities with adequate strength and full range of motion. No lower extremity swelling or edema. No calf tenderness. LYMPHATICS: No significant lymphadenopathy is noted PSYCHIATRIC: Normal psychiatric evaluation. Limitations: no limitations Course Vital Signs 05/08/18 05/08/18 05/08/18 16:36 16:59 18:38 Temperature 99.4 F 100.4 F H Pulse Rate 94 83 Respiratory 20 18 Rate Blood Pressure 114/95 98/60 O2 Sat by Pulse 95 96 Oximetry Medical Decision Making - Medical Decision Making EKG shows a normal sinus rhythm at 94 bpm [place] interval is 174 QRS 106 QT is 346 QTC is 432. Patient's EKG shows no ST segment elevation or depression. Patient's chest x-ray shows resolving right lower lobe pneumonia. Patient states she's on Anaprox home so I continue antibiotics in the emergency department. Patient also is influenza A+ I will start the patient on Tamiflu. I spoke with . she he agrees to admit the patient admitted the patient continue Tamiflu and antibiotics on the floor. - Lab Data Result diagrams: 05/08/18 16:35 05/08/18 16:35 Lab Results 05/08/18 05/08/18 05/08/18 Range/Units 16:35 16:35 16:35 WBC 7.7 (3.8-10.6) k/uL RBC 4.43 (4.30-5.90) m/uL Hgb 13.5 (13.0-17.5) gm/dL Hct 39.2 (39.0-53.0) % MCV 88.4 (80.0-100.0) fL MCH 30.4 (25.0-35.0) pg MCHC 34.4 (31.0-37.0) g/dL RDW 14.5 (11.5-15.5) % Plt Count 190 (150-450) k/uL Neutrophils % (Manual) 72 % Band Neutrophils % 3 % Lymphocytes % (Manual) 16 % Monocytes % (Manual) 9 % Neutrophils # (Manual) 5.70 (1.3-7.7) k/uL Lymphocytes # (Manual) 1.23 (1.0-4.8) k/uL Monocytes # (Manual) 0.69 (0-1.0) k/uL Nucleated RBCs 0 (0-0) /100 WBC Manual Slide Review Performed RBC Morphology Normal PT (9.0-12.0) sec INR (<1.2) APTT (22.0-30.0) sec Sodium 138 (137-145) mmol/L Potassium 4.2 (3.5-5.1) mmol/L Chloride 103 (98-107) mmol/L Carbon Dioxide 25 (22-30) mmol/L Anion Gap 10 mmol/L BUN 14 (9-20) mg/dL Creatinine 0.87 (0.66-1.25) mg/dL Est GFR (CKD-EPI)AfAm >90 (>60 ml/min/1.73 sqM) Est GFR (CKD-EPI)NonAf 86 (>60 ml/min/1.73 sqM) Glucose 109 H (74-99) mg/dL Plasma Lactic Acid Ko 1.2 (0.7-2.0) mmol/L Calcium 9.2 (8.4-10.2) mg/dL Total Bilirubin 0.4 (0.2-1.3) mg/dL AST 38 (17-59) U/L ALT 42 (21-72) U/L Alkaline Phosphatase 58 (38-126) U/L Troponin I (0.000-0.034) ng/mL Total Protein 5.9 L (6.3-8.2) g/dL Albumin 3.7 (3.5-5.0) g/dL Influenza Type A RNA (Not Detectd) Influenza Type B (PCR) (Not Detectd) 05/08/18 05/08/18 05/08/18 Range/Units 16:35 16:35 17:25 WBC (3.8-10.6) k/uL RBC (4.30-5.90) m/uL Hgb (13.0-17.5) gm/dL Hct (39.0-53.0) % MCV (80.0-100.0) fL MCH (25.0-35.0) pg MCHC (31.0-37.0) g/dL RDW (11.5-15.5) % Plt Count (150-450) k/uL Neutrophils % (Manual) % Band Neutrophils % % Lymphocytes % (Manual) % Monocytes % (Manual) % Neutrophils # (Manual) (1.3-7.7) k/uL Lymphocytes # (Manual) (1.0-4.8) k/uL Monocytes # (Manual) (0-1.0) k/uL Nucleated RBCs (0-0) /100 WBC Manual Slide Review RBC Morphology PT 10.1 (9.0-12.0) sec INR 0.9 (<1.2) APTT 29.0 (22.0-30.0) sec Sodium (137-145) mmol/L Potassium (3.5-5.1) mmol/L Chloride (98-107) mmol/L Carbon Dioxide (22-30) mmol/L Anion Gap mmol/L BUN (9-20) mg/dL Creatinine (0.66-1.25) mg/dL Est GFR (CKD-EPI)AfAm (>60 ml/min/1.73 sqM) Est GFR (CKD-EPI)NonAf (>60 ml/min/1.73 sqM) Glucose (74-99) mg/dL Plasma Lactic Acid Ko (0.7-2.0) mmol/L Calcium (8.4-10.2) mg/dL Total Bilirubin (0.2-1.3) mg/dL AST (17-59) U/L ALT (21-72) U/L Alkaline Phosphatase (38-126) U/L Troponin I 0.017 (0.000-0.034) ng/mL Total Protein (6.3-8.2) g/dL Albumin (3.5-5.0) g/dL Influenza Type A RNA Detected H (Not Detectd) Influenza Type B (PCR) Not Detected (Not Detectd) Disposition Clinical Impression: Influenza, Pneumonia, Vomiting Disposition: ADMITTED IP TO THIS HOSP Referrals: Angela Galindo MD [Primary Care Provider] - 1-2 days Time of Disposition: 19:22
[2018-05-08 17:32] LABS: INR 0.9 (<1.2); Prothrombin Time 10.1 sec (9.0-12.0)
[2018-05-08 17:34] LABS: ALT 42 U/L (21-72); AST 38 U/L (17-59); Albumin 3.7 g/dL (3.5-5.0); Alkaline Phosphatase 58 U/L (38-126); Anion Gap 10 mmol/L; Blood Urea Nitrogen 14 mg/dL (9-20); Calcium 9.2 mg/dL (8.4-10.2); Carbon Dioxide 25 mmol/L (22-30); Chloride 103 mmol/L (98-107); Glucose 109 mg/dL (74-99); Potassium 4.2 mmol/L (3.5-5.1); Sodium 138 mmol/L (137-145); Total Bilirubin 0.4 mg/dL (0.2-1.3); Total Protein 5.9 g/dL (6.3-8.2)
[2018-05-08 17:48] LABS: HCT 39.2 % (39.0-53.0); HGB 13.5 gm/dL (13.0-17.5); MCH 30.4 pg (25.0-35.0); MCHC 34.4 g/dL (31.0-37.0); MCV 88.4 fL (80.0-100.0); Mean Platelet Volume 7.9; Platelet Count 190 k/uL (150-450); RBC 4.43 m/uL (4.30-5.90); RDW 14.5 % (11.5-15.5); WBC 7.7 k/uL (3.8-10.6)
--- NOTE | 2018-05-08 18:08 | XR ---
EXAMINATION TYPE: XR chest 2V DATE OF EXAM: 05/08/2018 COMPARISON: 11/04/2016 HISTORY: Fever and weakness TECHNIQUE: Frontal and lateral views of the chest are obtained. FINDINGS: Heart is normal. There is coarse interstitial density in the lungs. Facet aorta is atherom atous. There is posterior fusion surgery in the lower cervical and upper thoracic spine. There is no gross heart failure. IMPRESSION: Pulmonary interstitial fibrosis. There is clearing of infiltrate in the left lung compar ed to old exam. No heart failure.
[2018-05-08 18:21] LABS: Band Neutrophils % 3 %; Lymphocytes # (M) 1.23 k/uL (1.0-4.8); Monocytes # (M) 0.69 k/uL (0-1.0); Neutrophils % (M) 72 %; Nucleated Red Blood Cells 0 /100 WBC (0-0); Total Cells Counted 100
[2018-05-08] MEDS ORDERED: cefTRIAXone IN SWFI 1,000 MG/10 ML SYRINGE IVP STA (19:05)
[2018-05-08] MEDS ORDERED: AZITHROMYCIN 500 MG in SODIUM CHLORIDE 0.9% 250 ML IVPB STA (19:23)
[2018-05-08] MEDS ORDERED: PNEUMONIA PROTOCOL UTILIZED 1 EACH MISC PO PRN (19:23)
[2018-05-08] MEDS ORDERED: OSELTAMIVIR 75 MG CAP PO STA (19:25)
[2018-05-08] MEDS: METOCLOPRAMIDE 5 MG/ML 2 ML VIAL IVP PRN (20:29)
[2018-05-08 22:06] LABS: Glucose,Whole Blood 95 mg/dL (75-99)
[2018-05-08] MEDS: SODIUM CHLORIDE 0.9% 1,000 ML IV SCH (22:45)
[2018-05-08 23:44] LABS: Appearance,Urine Clear (Clear); Bilirubin,Urine Negative (Negative); Blood,Urine Negative (Negative); Color,Urine Yellow; Glucose,Urine (UA) Negative (Negative); Ketones,Urine Negative (Negative); Leukocyte Esterase,Urine Negative (Negative); Nitrite,Urine Negative (Negative); Protein,Urine Trace (Negative); Specific Gravity,Urine 1.018 (1.001-1.035); Urobilinogen,Urine <2.0 mg/dL (<2.0)
[2018-05-09] MEDS: METOCLOPRAMIDE 5 MG/ML 2 ML VIAL IVP PRN ×2 (05:11→13:07)
[2018-05-09] MEDS: SODIUM CHLORIDE 0.9% 1,000 ML IV SCH ×2 (05:13→16:36)
[2018-05-09 07:30] LABS: Glucose,Whole Blood 94 mg/dL (75-99)
[2018-05-09] MEDS: OSELTAMIVIR 75 MG CAP PO SCH ×2 (08:05→21:04)
[2018-05-09] MEDS: AZITHROMYCIN 500 MG TAB PO SCH (08:05)
--- NOTE | 2018-05-09 08:32 | XR ---
EXAMINATION TYPE: XR chest 2V DATE OF EXAM: 05/09/2018 COMPARISON: Prior chest x-ray 05/08/2018 HISTORY: Pneumonia TECHNIQUE: Frontal and lateral views of the chest are obtained. FINDINGS: The interstitium is prominent. The heart is enlarged. Postop changes are again noted to th e spine. No evident pneumothorax. There is blunting of the costophrenic angles. IMPRESSION: Correlate for pulmonary venous hypertension and interstitial edema.
[2018-05-09] MEDS ORDERED: IPRATROPIUM-ALBUTEROL 3 ML NEB INHALATION PRN (10:49)
[2018-05-09 11:37] LABS: Glucose,Whole Blood 117 mg/dL (75-99)
[2018-05-09] MEDS ORDERED: ACETAMINOPHEN TAB 325 MG TAB PO PRN (14:49)
[2018-05-09 17:06] LABS: Glucose,Whole Blood 115 mg/dL (75-99)
[2018-05-09 20:39] LABS: Glucose,Whole Blood 175 mg/dL (75-99)
[2018-05-09] MEDS ORDERED: INSULIN DETEMIR (LEVEMIR) 100 UNIT/ML SYR SQ SCH (21:00)
[2018-05-09] MEDS: METOPROLOL TARTRATE 25 MG TAB PO SCH (21:04)
--- NOTE | 2018-05-09 21:54 | P.HPIM ---
History of Present Illness H&P Date: 05/09/18 Chief Complaint: Shortness of breath Patient is a 2-year-old male with a known history of hypertension, diabetes type 2, coronary artery disease and history of stent placement, lymphoma and history of chemo and radiation and also history of histoplasmosis is required lung re section came to ER with complaints of not feeling well for the past 2 weeks. Patient says that he feels very tired and nauseated. Symptoms have been worsening which made him come to the hospital. Patient says that she was seen in the emergency room on Monday and was discharged home. Last night patient started vomiting throughout the night and continues to feel week. Patient was also having fever. Patient came to ER again. Otherwise denied any complains of chest pain. Patient does have some shortness of breath. No headache or dizziness or lightheadedness. No nausea vomiting or diarrhea or abdominal pain currently. No recent illnesses or sick contacts. Chest x-ray showed pulmonary interstitial fibrosis. There is clearing of infiltrate in the left lung No leukocytosis. Influenza A PCR positive. Review of Systems Constitutional: Patient does have fever. No chills. Does have generalized weakness and moist.. Abdomen: Patient denied nausea vomiting and diarrhea and abdominal pain. Cardiovascular: Patient denies any chest pain or short of breath no palpitations. Respiratory: Cough without sputum production.. Patient does have shortness of breath Neurologic: Patient denied any numbness or tingling headache. Musculoskeletal: Patient denies any complaints of joint swelling or deformity. Skin: Negative Psychiatric: Negative Endocrine: No heat or cold intolerance. No recent weight gain. Genitourinary: No dysuria or hematuria. All other 14 point ROS negative except the above Past Medical History Past Medical History: Coronary Artery Disease (CAD), Cancer, Diabetes Mellitus, Hypertension, Pneumonia Additional Past Medical History / Comment(s): lymphoma 4 times-yrs since chemo and radiation. Has a history of histoplasmosis which required the lung resection -HAS SOME SOB. hernia History of Any Multi-Drug Resistant Organisms: MRSA Date of last positivie culture/infection: 01/12/18 MDRO Source:: EAR Past Surgical History: Cholecystectomy, Heart Catheterization With Stent, Hernia Repair Additional Past Surgical History / Comment(s): stem cell transplant/ LUNG RESECTION. 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 Past Anesthesia/Blood Transfusion Reactions: No Reported Reaction Additional Past Anesthesia/Blood Transfusion Reaction / Comment(s): no hx blood transfusion Date of Last Stent Placement:: 01-10-2013 Past Psychological History: No Psychological Hx Reported, Depression Additional Psychological History / Comment(s): . 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 No experience. No international travel. No animal exposures Smoking Status: Never smoker Past Alcohol Use History: None Reported Past Drug Use History: None Reported - Past Family History Mother Family Medical History: No Reported History Medications and Allergies Home Medications Medication Instructions Recorded Confirmed Type Furosemide [Lasix] 40 mg PO BID 08/25/16 05/08/18 History Aspirin [Adult Low Dose Aspirin EC] 81 mg PO DAILY 10/27/16 05/08/18 History Acyclovir [Zovirax] 400 mg PO BID 07/26/17 05/08/18 History Multivit-Min/FA/Lycopen/Lutein 1 tab PO DAILY 07/26/17 05/08/18 History [Centrum Silver Men Tablet] metFORMIN HCL [Glucophage] 500 mg PO BID 07/26/17 05/08/18 History Metoprolol Tartrate [Lopressor] 25 mg PO BID 09/15/17 05/08/18 History Atorvastatin [Lipitor] 40 mg PO DAILY 04/30/18 05/08/18 History Glimepiride [Amaryl] 2 mg PO DAILY 04/30/18 05/08/18 History Insulin Glargine,Hum.rec.anlog 25 units SQ HS 04/30/18 05/08/18 History [Toujeo Solostar] Ipratropium-Albuterol Nebulize 3 ml INHALATION RT-Q6H PRN 05/08/18 05/08/18 History [Duoneb 0.5 mg-3 mg/3 ml Soln] Potassium Chloride ER [K-Dur 10] 10 meq PO DAILY 05/08/18 05/08/18 History Allergies Allergy/AdvReac Type Severity Reaction Status Date / Time No Known Allergies Allergy Verified 05/08/18 17:03 Physical Exam Vitals: Vital Signs Temp Pulse Pulse Resp BP BP Pulse Ox 05/09/18 08:00 16 05/09/18 05:25 97.6 F 78 17 95/56 98 05/08/18 22:08 98.1 F 80 18 101/63 99 05/08/18 21:28 77 16 92/66 97 05/08/18 20:22 97 F L 82 16 95/63 97 05/08/18 18:38 83 18 98/60 96 05/08/18 16:59 100.4 F H 05/08/18 16:36 99.4 F 94 20 114/95 95 Intake and Output 05/08/18 05/09/18 05/09/18 22:59 06:59 14:59 Output Total 600 Balance -600 Output: Urine 600 Other: Voiding Method Toilet Weight 74.843 kg PHYSICAL EXAMINATION: Patient is lying in the bed comfortably, no acute distress, awake alert and oriented.. HEENT: Normocephalic. Neck is supple. Pupils reactive. Nostrils clear. Oral cavity is moist. Ears reveal no drainage. Neck reveals no JVD, carotid bruits, or thyromegaly. CHEST EXAMINATION: Trachea is central. Symmetrical expansion. Bibasilar crackles and diffuse rhonchi and crackles. CARDIAC: Normal S1, S2 with no gallops. No murmurs ABDOMEN: Soft. Bowel sounds normal. No organomegaly. No abdominal bruits. Extremities: reveal no edema. No clubbing or cyanosis Neurologically awake, alert, oriented x3 with well-coordinated movements. No focal deficits noted Skin: No rash or skin lesions. Psychiatric: Coperative. Nonsuicidal Musculoskeletal: No joint swelling or deformity. Normal range of motion. Results CBC & Chem 7: 05/08/18 16:35 05/08/18 16:35 Labs: Abnormal Lab Results - Last 24 Hours (Table) 05/08/18 05/08/18 05/08/18 Range/Units 16:35 17:25 23:00 Glucose 109 H (74-99) mg/dL Total Protein 5.9 L (6.3-8.2) g/dL Urine Protein Trace H (Negative) Influenza Type A RNA Detected H (Not Detectd) Microbiology - Last 24 Hours (Table) 05/08/18 23:00 Urine Culture - Preliminary Urine,Voided Thrombosis Risk Factor Assmnt - DVT/VTE Prophylaxis DVT/VTE Prophylaxis: Pharmacologic Prophylaxis ordered - Choose All That Apply Any of the Below Risk Factors Present?: Yes Each Factor Represents 1 point: Serious lung disease incl. pneumonia (< 1month) Other Risk Factors: Yes Each Risk Factor Represents 2 Points: Age 61-74 years, Malignancy Other congenital or acquired thrombophilia - If yes, enter type in comment: No Thrombosis Risk Factor Assessment Total Risk Factor Score: 5 Thrombosis Risk Factor Assessment Level: High Risk Assessment and Plan Assessment: Acute influenza A infection Possible pneumonia. Clearing up as per chest x-ray. Interstitial pulmonary fibrosis Diabetes type 2 insulin-dependent Hypertension Cell lymphoma and chemoradiation history Coronary artery disease with stent placement History of histoplasmosis requiring lung resection Lifelong nonsmoker Depression DVT prophylaxis with heparin subcu Plan: Patient will continue done antibiotic for pneumonia and Tamiflu. Gentle hydration and monitor fluid status. Currently with insulin dosing. Current with symptomatic management and recent treatments. Follow closely and further recommendations based on the clinical course. Time with Patient: Greater than 30
[2018-05-10] MEDS: HEPARIN SODIUM,PORCINE 5,000 UNIT/ML 1 ML VIAL SQ SCH ×3 (00:06→15:55)
[2018-05-10] MEDS: METOCLOPRAMIDE 5 MG/ML 2 ML VIAL IVP PRN (02:31)
[2018-05-10] MEDS: SODIUM CHLORIDE 0.9% 1,000 ML IV SCH ×2 (02:32→12:06)
[2018-05-10 07:32] LABS: Glucose,Whole Blood 83 mg/dL (75-99)
[2018-05-10] MEDS ORDERED: ASPIRIN 81 MG PO SCH (09:00)
[2018-05-10] MEDS ORDERED: ATORVASTATIN 40 MG TAB PO SCH (09:00)
[2018-05-10] MEDS: OSELTAMIVIR 75 MG CAP PO SCH (09:47)
[2018-05-10] MEDS: METOPROLOL TARTRATE 25 MG TAB PO SCH (09:48)
[2018-05-10] MEDS: AZITHROMYCIN 500 MG TAB PO SCH (09:48)
[2018-05-10 11:01] LABS: HCT 36.1 % (39.0-53.0); HGB 12.5 gm/dL (13.0-17.5); MCH 30.9 pg (25.0-35.0); MCHC 34.7 g/dL (31.0-37.0); MCV 89.2 fL (80.0-100.0); Mean Platelet Volume 7.6; Platelet Count 159 k/uL (150-450); RBC 4.05 m/uL (4.30-5.90); RDW 14.4 % (11.5-15.5); WBC 5.3 k/uL (3.8-10.6)
[2018-05-10 11:15] LABS: Anion Gap 8 mmol/L; Blood Urea Nitrogen 13 mg/dL (9-20); Calcium 8.1 mg/dL (8.4-10.2); Carbon Dioxide 23 mmol/L (22-30); Chloride 106 mmol/L (98-107); Glucose 129 mg/dL (74-99); Potassium 3.6 mmol/L (3.5-5.1); Sodium 137 mmol/L (137-145)
[2018-05-10 12:00] LABS: Band Neutrophils % 3 %; Eosinophils # (M) 0.05 k/uL (0-0.7); Lymphocytes # (M) 1.86 k/uL (1.0-4.8); Monocytes # (M) 0.53 k/uL (0-1.0); Neutrophils % (M) 51 %; Nucleated Red Blood Cells 0 /100 WBC (0-0); Total Cells Counted 100
[2018-05-10] MEDS ORDERED: MULTIVITAMINS, THERA 1 EACH TAB PO SCH (12:00)
[2018-05-10 12:01] LABS: Anisocytosis (M) Present; Poikilocytosis (M) Present
[2018-05-10 12:02] LABS: Ovalocytes Present
[2018-05-10 13:03] VITALS: BP 103/60; PULSE 76; RESP 19; TEMP 98.6
== END 2018-05-10 17:14 | disposition home or self-care (01) ==
LOC: EC 16:30 → 4MS4W 19:27
PROVIDERS: ADMIT Internal Medicine; ATTEND Internal Medicine
DX: J10.1 Influenza due to other identified influenza virus with other respiratory manifestations (principal); J84.10 Pulmonary fibrosis, unspecified; I25.10 Atherosclerotic heart disease of native coronary artery without angina pectoris; I10 Essential (primary) hypertension; E11.9 Type 2 diabetes mellitus without complications; F32.9 Major depressive disorder, single episode, unspecified; R11.2 Nausea with vomiting, unspecified; Z79.82 Long term (current) use of aspirin; Z79.4 Long term (current) use of insulin; Z79.899 Other long term (current) drug therapy; Z86.14 Personal history of Methicillin resistant Staphylococcus aureus infection; Z90.49 Acquired absence of other specified parts of digestive tract; Z92.21 Personal history of antineoplastic chemotherapy; Z92.3 Personal history of irradiation; Z86.19 Personal history of other infectious and parasitic diseases; Z85.72 Personal history of non-Hodgkin lymphomas; Z90.2 Acquired absence of lung [part of]; Z95.5 Presence of coronary angioplasty implant and graft; Z87.01 Personal history of pneumonia (recurrent)
CPT/HCPCS: 96376 ×2; 96361 ×4; 96366; 96367; 96372; 96365; 96375; 99285; 36415; 93005; 80053; 80048; 83605; 84484; 85025 ×2; 85610; 85730; 81003; 87040; 87070; 87086; 87205; 87077; 87186; 87502; 71046 ×2; G0378 ×3; J1644; J2765 ×3; J0456; J0696 ×3

== ENCOUNTER → 2018-11-26 | Outpatient (CLI) | payer MEDICARE ==
--- NOTE | 2018-11-26 13:04 | MR ---
EXAMINATION TYPE: MR cspine/lspine wo/w con DATE OF EXAM: 11/26/2018 COMPARISON: HISTORY: Neck pain / Low Back Pain TECHNIQUE: Multiplanar, multisequence images of the lumbar and cervical spine is performed without and with IV c ontrast, utilizing 7.5 mL intravenous Gadavist FINDINGS: Cervical spine MRI: There is near anatomic alignment. Cervical vertebral bodies show preserved height . There is loss of disc height signal at C4-5, C5-6, endplate discogenic marrow signal changes are pr esent with spondylosis. Suspect calcification along the C6-7 C7-T1 disc spaces, loss of disc height w ith some increased signal may represent calcification. There is no significant spinal stenosis. Cervi bre cord signal is maintained. There is artifact due to patient's hardware in the upper dressing spin e which may limit evaluation. There is some enhancement along the disc space at C4-5 possibly related to granulation tissue. No other abnormal enhancement following contrast administration. C2-3: There is some facet arthropathy encroaching on the left neural foramen, no disc herniation. C3-4: Small posterior broad-based disc bulge causes slight anterior mass effect on the thecal sac. Un covertebral joint hypertrophy causes some foraminal encroachment bilaterally. C4-5: Posterior extension endplate disc complex causes mild anterior mass effect on the thecal sac. U ncovertebral joint hypertrophy facet arthropathy results in right-sided foraminal encroachment greate r than left. Only mild spinal stenosis. C5-6: There is some mild bilateral foraminal encroachment due to uncovertebral joint hypertrophy and facet arthropathy. Posterior extension of endplate disc complex causes mild anterior mass effect on t he thecal sac, only mild spinal stenosis. C6-7: No evident foraminal encroachment or disc herniation. C7-T1: No evident disc herniation or foraminal encroachment. IMPRESSION: Multilevel degenerative disc disease and foraminal encroachment. Lumbar spine MRI: Sagittal images of the lumbar spine show vertebral body heights and alignment to appear satisfactory . Loss of disc height signal is greatest at L3-4, L4-5, there is endplate discogenic marrow signal ch damon, multilevel spondylosis. The conus is at L1 and shows an unremarkable appearance. L5-S1 shows facet arthropathy with hypertrophy ligamentum flavum. Posterior broad-based disc bulge ca uses mild anterior mass effect on the thecal sac. There is no significant spinal stenosis. Circumfere ntial extension of endplate disc complex results in some left-sided foraminal encroachment. L4-5: There is facet arthropathy causing posterior lateral mass effect on the thecal sac and resultin g in a trefoil appearance of the thecal sac. Circumferential extension endplate disc complex results in foraminal encroachment greater on the right than on the left. Posterior broad-based disc bulge cau ses mild anterior mass effect on the thecal sac. No significant central stenosis. L3-4: Hypertrophic changes of the facets causes posterior lateral mass effect on the thecal sac, circ umferential extension endplate disc complex results in foraminal encroachment greater on the right th an on the left. No significant central stenosis. Posterior broad-based disc bulge causes mild anterio r mass effect on the thecal sac. L2-3, L1-2 within normal limits. No abnormal enhancement following contrast administration. IMPRESSION: Degenerative disc disease and facet arthropathy, multilevel foraminal encroachment in the lumbar spine.
== END | disposition home or self-care (01) ==
LOC: RADMRIMAIN 07:49
PROVIDERS: ATTEND Orthopaedic Surgery Orthopaedic Surgery of the Spine
DX: M51.36 Other intervertebral disc degeneration, lumbar region (principal); M46.96 Unspecified inflammatory spondylopathy, lumbar region; M41.86 Other forms of scoliosis, lumbar region; M50.30 Other cervical disc degeneration, unspecified cervical region; E10.8 Type 1 diabetes mellitus with unspecified complications; Z98.1 Arthrodesis status
CPT/HCPCS: 72156; 72158; A9585

== ENCOUNTER 2019-01-28 08:05 | Inpatient (IN) | payer MEDICARE ==
[2019-01-28] MEDS ORDERED: ACETAMINOPHEN TAB 500 MG TAB PO STA (08:08)
[2019-01-28] MEDS: SODIUM CHLORIDE 0.9% 500 ML 500 ML IV SCH ×2 (08:15→08:16)
[2019-01-28] MEDS: PIPERACILLIN-TAZOBACTAM 3.375 GM in SODIUM CHLORIDE 0.9% 100 ML IVPB STA ×2 (08:18→09:14)
--- NOTE | 2019-01-28 08:38 | ED ---
General Adult HPI - General Stated complaint: sepsis Source: patient, family, EMS, RN notes reviewed, old records reviewed Mode of arrival: EMS Limitations: no limitations - History of Present Illness Initial comments: 73-year-old male presenting with fever, altered mental status. History is obtained from the patient's and EMS. He is able to answer simple questions but not provide detailed history. According to his he has been ill for several days, generalized weakness and fatigue fever and shaking. His been sleeping more than usual. He had one episode of vomiting according to EMS. He had been treated for suspected shingles rash on the left flank which according to his had not presented itself but the physician thought that his left flank pain was likely early shingles. Unknown if the patient had dysuria or urinary frequency. Patient received total 1 L of normal saline by EMS prior to arrival - Related Data Home Medications Medication Instructions Recorded Confirmed Furosemide [Lasix] 20 mg PO DAILY 08/25/16 01/28/19 Aspirin [Adult Low Dose Aspirin EC] 81 mg PO DAILY 10/27/16 01/28/19 Multivit-Min/FA/Lycopen/Lutein 1 tab PO DAILY 07/26/17 01/28/19 [Centrum Silver Men Tablet] metFORMIN HCL [Glucophage] 500 mg PO AC-BID 07/26/17 01/28/19 Metoprolol Tartrate [Lopressor] 12.5 mg PO BID 09/15/17 01/28/19 Atorvastatin [Lipitor] 40 mg PO DAILY 04/30/18 01/28/19 Glimepiride [Amaryl] 4 mg PO DAILY 04/30/18 01/28/19 Insulin Glargine,Hum.rec.anlog 24 units SQ HS 04/30/18 01/28/19 [Toubethany Solostar] Ipratropium-Albuterol Nebulize 3 ml INHALATION RT-Q6H PRN 05/08/18 01/28/19 [Duoneb 0.5 mg-3 mg/3 ml Soln] Potassium Chloride ER [K-Dur 10] 10 meq PO DAILY 05/08/18 01/28/19 Acetaminophen-Codeine 300-30mg 1 - 2 tab PO Q4HR PRN 01/28/19 01/28/19 [Tylenol w/codeine #3] Amoxicillin/Potassium Clav 1 tab PO Q12HR 01/28/19 01/28/19 [Augmentin 875-125 Tablet] Montelukast Sodium [Singulair] 10 mg PO HS 01/28/19 01/28/19 Pregabalin [Lyrica] 75 mg PO TID 01/28/19 01/28/19 Allergies Allergy/AdvReac Type Severity Reaction Status Date / Time No Known Allergies Allergy Verified 01/28/19 11:11 Review of Systems ROS Statement: Those systems with pertinent positive or pertinent negative responses have been documented in the HPI. ROS Other: All systems not noted in ROS Statement are negative. Past Medical History Past Medical History: Coronary Artery Disease (CAD), Cancer, Diabetes Mellitus, Hypertension, Pneumonia Additional Past Medical History / Comment(s): lymphoma 4 times-yrs since chemo and radiation. Has a history of histoplasmosis which required the lung resection -HAS SOME SOB. hernia History of Any Multi-Drug Resistant Organisms: MRSA Date of last positivie culture/infection: 05/09/18 MDRO Source:: MRSA SPUTUM Past Surgical History: Cholecystectomy, Heart Catheterization With Stent, Hernia Repair Additional Past Surgical History / Comment(s): stem cell transplant/ LUNG RESECTION. 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 Past Anesthesia/Blood Transfusion Reactions: No Reported Reaction Additional Past Anesthesia/Blood Transfusion Reaction / Comment(s): no hx blood transfusion Date of Last Stent Placement:: 01-10-2013 Past Psychological History: No Psychological Hx Reported, Depression Smoking Status: Never smoker Past Alcohol Use History: None Reported Past Drug Use History: None Reported - Past Family History Mother Family Medical History: No Reported History Father Additional Family Medical History / Comment(s): Father of a "ruptured" heart at the age of 72 yrs. General Exam Limitations: no limitations General appearance: lethargic, in distress Head exam: Present: normocephalic. Absent: atraumatic (Abrasion to the left forehead) Eye exam: Present: PERRL, EOMI. Absent: scleral icterus, periorbital swelling ENT exam: Present: mucous membranes dry Neck exam: Present: normal inspection, full ROM. Absent: meningismus Respiratory exam: Present: rhonchi, decreased breath sounds. Absent: accessory muscle use Cardiovascular Exam: Present: normal rhythm, tachycardia GI/Abdominal exam: Present: distended, tenderness. Absent: guarding, rebound Extremities exam: Present: normal inspection. Absent: normal capillary refill (delayed) Neurological exam: Present: alert (slow to respond). Absent: motor sensory def icit Skin exam: Present: warm, pallor. Absent: diaphoretic Course Vital Signs 01/28/19 01/28/19 01/28/19 08:07 08:20 08:30 Temperature 102.4 F H Pulse Rate 131 H 125 H 125 H Respiratory 20 25 H 25 H Rate Blood Pressure 86/66 86/66 86/66 O2 Sat by Pulse 91 L 97 Oximetry 01/28/19 01/28/19 01/28/19 08:40 09:00 09:10 Temperature Pulse Rate 126 H 124 H 116 H Respiratory 23 22 21 Rate Blood Pressure 101/64 65/46 113/76 O2 Sat by Pulse 97 Oximetry 01/28/19 01/28/19 01/28/19 09:15 09:20 10:10 Temperature 99.3 F Pulse Rate 115 H 107 H Respiratory 31 H 26 H Rate Blood Pressure 65/49 56/40 O2 Sat by Pulse 96 Oximetry 01/28/19 01/28/19 01/28/19 10:18 10:20 10:30 Temperature Pulse Rate 106 H 106 H 104 H Respiratory 18 25 H 20 Rate Blood Pressure 61/46 61/46 61/46 O2 Sat by Pulse 91 L Oximetry 01/28/19 01/28/19 01/28/19 10:32 11:00 11:15 Temperature 98.4 F Pulse Rate 103 H 100 103 H Respiratory 16 16 18 Rate Blood Pressure 59/44 66/38 64/27 O2 Sat by Pulse 98 Oximetry 01/28/19 01/28/19 01/28/19 11:30 11:43 11:55 Temperature Pulse Rate 134 H 99 98 Respiratory 18 16 Rate Blood Pressure 44/24 68/51 74/56 O2 Sat by Pulse 97 Oximetry 01/28/19 01/28/19 12:20 12:31 Temperature Pulse Rate 96 96 Respiratory 16 16 Rate Blood Pressure 86/60 79/55 O2 Sat by Pulse 98 100 Oximetry EKG Findings - EKG Comments: EKG Findings:: EKG: Sinus tachycardia, incomplete right bundle branch block, left posterior fascicular block, rate of 129, DE interval 166, QRS duration 98, QTC [address] segment elevation. Repeat EKG at 1141 atrial fibrillation with RVR, low voltage, rate of 126, QRS duration 98, QTC 501. Repeat EKG at 1144 after cardioversion, normal sinus rhythm with a rate of 99, DE interval 186, QRS duration 108, QTC [address] segment elevation Procedures - Central Line Placement Right IJ Consent Obtained: verbal consent, written consent Patient Placed on Monitor/Pulse Ox: Yes MD Prep: mask, gown, gloves Central Line Prep: Chlorhexidine scrub, sterile drapes applied Local Anesthesia Used: Lidocaine 1% Amount of Anesthesia Used (mls): 3 Ultrasound Used for Placement: Yes Central Line Lumen Inserted: triple Bloods Obtained for Lab: No Central Line Position: good blood return, all ports aspirated, flushed, capped, sutured in place with nylon Dressing Applied: Tegaderm Post Procedure X-Ray: tip of catheter in good position Patient Tolerated Procedure: well Complications: none Medical Decision Making - Medical Decision Making 73-year-old male presenting with altered mental status. Patient is febrile, hypoxic tachycardic and hypertensive on arrival. Limited history. Patient has elevated white blood cell count 16.7, hemoglobin 14.2 which is stable, he has acute renal failure with creatinine 1.75, normal lactic acid, influenza negative. Chest x-ray concerning for multifocal pneumonia. Urinalysis negative for infection. CT brain negative for acute intracranial pathology. CT abdomen is obtained for distended moderately tender abdomen that shows pneumonia with question of adrenal hemorrhage, no other acute infectious pathology. Patient is resuscitated in the emergency department with 4/2 L normal saline, was given broad-spectrum antibiotics covering for pneumonia, he is given hydrocortisone with minimal improvement in blood pressure. A central line is placed and he is started on norepinephrine. He did have an episode of profound hypotension and atrial fibrillation with RVR. I cardioverted this patient initially with 50 J and subsequently with 100 J with conversion to sinus rhythm. Patient tolerated the procedure well. He remained in sinus rhythm on emergency department. He started on norepinephrine for blood pressure support. Patient's wishes are to be treated medically but not to be resuscitated with CPR or intubated. Case is discussed with the business reporting developer and the admitting physician. - Lab Data Result diagrams: 01/28/19 08:16 01/28/19 08:16 Lab Results 01/28/19 01/28/19 01/28/19 Range/Units 08:16 08:16 08:16 WBC 16.7 H (3.8-10.6) k/uL RBC 4.66 (4.30-5.90) m/uL Hgb 14.2 (13.0-17.5) gm/dL Hct 41.8 (39.0-53.0) % MCV 89.7 (80.0-100.0) fL MCH 30.5 (25.0-35.0) pg MCHC 34.0 (31.0-37.0) g/dL RDW 13.1 (11.5-15.5) % Plt Count 304 (150-450) k/uL Neutrophils % (Manual) 71 % Lymphocytes % (Manual) 21 % Monocytes % (Manual) 6 % Eosinophils % (Manual) 2 % Neutrophils # (Manual) 11.86 H (1.3-7.7) k/uL Lymphocytes # (Manual) 3.51 (1.0-4.8) k/uL Monocytes # (Manual) 1.00 (0-1.0) k/uL Eosinophils # (Manual) 0.33 (0-0.7) k/uL Nucleated RBCs 0 (0-0) /100 WBC Manual Slide Review Performed Poikilocytosis (manual Present PT (9.0-12.0) sec INR (<1.2) APTT (22.0-30.0) sec Sodium 132 L (137-145) mmol/L Potassium 4.8 (3.5-5.1) mmol/L Chloride 98 (98-107) mmol/L Carbon Dioxide 21 L (22-30) mmol/L Anion Gap 13 mmol/L BUN 36 H (9-20) mg/dL Creatinine 1.75 H (0.66-1.25) mg/dL Est GFR (CKD-EPI)AfAm 44 (>60 ml/min/1.73 sqM) Est GFR (CKD-EPI)NonAf 38 (>60 ml/min/1.73 sqM) Glucose 153 H (74-99) mg/dL Plasma Lactic Acid Ko (0.7-2.0) mmol/L Calcium 8.9 (8.4-10.2) mg/dL Total Bilirubin 1.0 (0.2-1.3) mg/dL AST 44 (17-59) U/L ALT 30 (4-49) U/L Alkaline Phosphatase 85 (38-126) U/L Creatine Kinase 128 (55-170) U/L Total Protein 6.3 (6.3-8.2) g/dL Albumin 3.7 (3.5-5.0) g/dL Urine Color Urine Appearance (Clear) Urine pH (5.0-8.0) Ur Specific [place] (1.001-1.035) Urine Protein (Negative) Urine Glucose (UA) (Negative) Urine Ketones (Negative) Urine Blood (Negative) Urine Nitrite (Negative) Urine Bilirubin (Negative) Urine Urobilinogen (<2.0) mg/dL Ur Leukocyte Esterase (Negative) Influenza Type A RNA Not Detected (Not Detectd) Influenza Type B (PCR) Not Detected (Not Detectd) 01/28/19 01/28/19 01/28/19 Range/Units 08:16 08:16 10:10 WBC (3.8-10.6) k/uL RBC (4.30-5.90) m/uL Hgb (13.0-17.5) gm/dL Hct (39.0-53.0) % MCV (80.0-100.0) fL MCH (25.0-35.0) pg MCHC (31.0-37.0) g/dL RDW (11.5-15.5) % Plt Count (150-450) k/uL Neutrophils % (Manual) % Lymphocytes % (Manual) % Monocytes % (Manual) % Eosinophils % (Manual) % Neutrophils # (Manual) (1.3-7.7) k/uL Lymphocytes # (Manual) (1.0-4.8) k/uL Monocytes # (Manual) (0-1.0) k/uL Eosinophils # (Manual) (0-0.7) k/uL Nucleated RBCs (0-0) /100 WBC Manual Slide Review Poikilocytosis (manual PT 10.7 (9.0-12.0) sec INR 1.0 (<1.2) APTT 27.6 (22.0-30.0) sec Sodium (137-145) mmol/L Potassium (3.5-5.1) mmol/L Chloride (98-107) mmol/L Carbon Dioxide (22-30) mmol/L Anion Gap mmol/L BUN (9-20) mg/dL Creatinine (0.66-1.25) mg/dL Est GFR (CKD-EPI)AfAm (>60 ml/min/1.73 sqM) Est GFR (CKD-EPI)NonAf (>60 ml/min/1.73 sqM) Glucose (74-99) mg/dL Plasma Lactic Acid Ko 1.5 (0.7-2.0) mmol/L Calcium (8.4-10.2) mg/dL Total Bilirubin (0.2-1.3) mg/dL AST (17-59) U/L ALT (4-49) U/L Alkaline Phosphatase (38-126) U/L Creatine Kinase (55-170) U/L Total Protein (6.3-8.2) g/dL Albumin (3.5-5.0) g/dL Urine Color Yellow Urine Appearance Clear (Clear) Urine pH 6.5 (5.0-8.0) Ur Specific [place] 1.017 (1.001-1.035) Urine Protein Trace H (Negative) Urine Glucose (UA) Negative (Negative) Urine Ketones Negative (Negative) Urine Blood Negative (Negative) Urine Nitrite Negative (Negative) Urine Bilirubin Negative (Negative) Urine Urobilinogen <2.0 (<2.0) mg/dL Ur Leukocyte Esterase Negative (Negative) Influenza Type A RNA (Not Detectd) Influenza Type B (PCR) (Not Detectd) Critical Care Time Critical Care Time: Yes Total Critical Care Time: 95 Disposition Clinical Impression: Community acquired pneumonia, Pneumonia, Sepsis, Atrial fibrillation with RVR Disposition: ADMITTED IP TO THIS [facility] Condition: Serious Is patient prescribed a controlled substance at d/c from ED?: No Decision to Admit Reason: Admit from EC Decision Date: 01/28/19 Decision Time: 11:05
[2019-01-28 09:03] LABS: Prothrombin Time 10.7 sec (9.0-12.0)
[2019-01-28 09:04] LABS: HCT 41.8 % (39.0-53.0); HGB 14.2 gm/dL (13.0-17.5); MCH 30.5 pg (25.0-35.0); MCV 89.7 fL (80.0-100.0); Mean Platelet Volume 7.8; Partial Thromboplastin Time 27.6 sec (22.0-30.0); Platelet Count 304 k/uL (150-450); RBC 4.66 m/uL (4.30-5.90); RDW 13.1 % (11.5-15.5); WBC 16.7 k/uL (3.8-10.6)
[2019-01-28 09:08] LABS: Albumin 3.7 g/dL (3.5-5.0); Calcium 8.9 mg/dL (8.4-10.2); Potassium 4.8 mmol/L (3.5-5.1); Total Protein 6.3 g/dL (6.3-8.2)
[2019-01-28 09:28] LABS: Eosinophils # (M) 0.33 k/uL (0-0.7); Lymphocytes # (M) 3.51 k/uL (1.0-4.8); Neutrophils # (M) 11.86 k/uL (1.3-7.7); Neutrophils % (M) 71 %; Nucleated Red Blood Cells 0 /100 WBC (0-0); Total Cells Counted 100
[2019-01-28 09:29] LABS: Poikilocytosis (M) Present
--- NOTE | 2019-01-28 09:56 | XR ---
EXAMINATION TYPE: XR chest 2V DATE OF EXAM: 01/28/2019 COMPARISON: 05/09/2018 HISTORY: 73-year-old male with fever TECHNIQUE: AP and lateral views FINDINGS: Heart upper limits of normal in size. Trace effusions. Patchy left basilar opacity and patchy periphe ral right upper lobe opacity. Upper thoracic posterior fusion hardware is demonstrated. IMPRESSION: Left basilar and right upper lobe opacities. Trace effusions. Correlate for atypical pulmonary edema versus multifocal pneumonia.
--- NOTE | 2019-01-28 09:59 | CT ---
EXAMINATION TYPE: CT brain wo con DATE OF EXAM: 04/30/2018 COMPARISON: None HISTORY: Altered mental status. CT DLP: 1091.[address] of the brain was performed. The ventricles, basal cisterns and sulci overlying the cerebral convexities demonstrate mild enlargem ent. There is no evidence for intracranial hemorrhage or sulcal effacement. There is decreased attenuation about the periventricular white matter and deep white matter of both c erebral hemispheres, compatible with chronic small vessel ischemia. Differential diagnosis does inclu de demyelination. No mass effects are seen.No midline shift. Osseous calvarium is intact. If symptoms persist consider MRI. IMPRESSION: 1. Age related atrophic and chronic small vessel ischemic change without acute intracranial process s een at this time.
--- NOTE | 2019-01-28 10:06 | CT ---
EXAMINATION TYPE: CT abdomen pelvis wo con DATE OF EXAM: 01/28/2019 COMPARISON: 04/30/2018 HISTORY: Nausea, vomiting, abdominal pain and fever. CT DLP: 643.1 mGycm Examination of the solid and hollow viscera is limited given the lack of contrast. FINDINGS: LUNG BASES: No evidence for nodule. Basilar infiltrates are noted. LIVER/GB: Cholecystectomy clips identified. No space-occupying hepatic lesion. PANCREAS: No pancreatic mass identified. No inflammatory process seen. SPLEEN: No evidence for splenomegaly. No intrasplenic lesions seen. ADRENALS: New right adrenal mass measuring 3.6 cm as well as a smaller nodule measuring 1.4 cm. There is mild stranding noted about the right adrenal gland and the findings could be related to hemorrhag e. Metastatic disease is an additional consideration. Also of note is resolution of previously noted left adrenal mass which may reflect resolution of hemorrhage. KIDNEYS: No evidence for renal mass. No nephrolithiasis. No hydronephrosis. Distention of the urinary bladder may reflect lateral lead obstruction versus neurogenic bladder. BOWEL: Appendix has a normal appearance. No evidence of bowel obstruction. No inflammatory process. Lymph nodes: No evidence for adenopathy greater than 1 cm. Abdominal aorta: Atheromatous changes seen. No evidence for aneurysm. Genital organs: No significant abnormality. Other: No significant abnormality. IMPRESSION: 1. New bilobed right adrenal mass may reflect the adrenal hemorrhage. Mass of other etiology not excl uded including metastatic disease or adenoma however given the fact that previously noted left adrena l mass has resolved I do suspect hemorrhage. 2. Basilar infiltrates may reflect underlying pneumonia. Underlying fibrosis noted as well.
[2019-01-28] MEDS ORDERED: VANCOMYCIN IV PER PHARMACY 1 EACH MISC MISCELLANE PRN (10:16)
[2019-01-28] MEDS ORDERED: SODIUM CHLORIDE 0.9% 1,000 ML IV ONE (10:16)
[2019-01-28] MEDS ORDERED: VANCOMYCIN 1,500 MG in SODIUM CHLORIDE 0.9% 250 ML IVPB STA (10:19)
[2019-01-28] MEDS ORDERED: cefTRIAXone IN SWFI 1,000 MG/10 ML SYRINGE IVP STA (10:24)
[2019-01-28] MEDS ORDERED: AZITHROMYCIN 500 MG in SODIUM CHLORIDE 0.9% 250 ML IVPB STA (10:24)
[2019-01-28] MEDS ORDERED: HYDROCORTISONE SUCCINATE 100 MG/2 ML VIAL IV STA (10:27)
[2019-01-28] MEDS ORDERED: fentaNYL (PF) 50 MCG/ML 2 ML AMP IVP PRN (10:28)
[2019-01-28 10:31] LABS: Appearance,Urine Clear (Clear); Bilirubin,Urine Negative (Negative); Blood,Urine Negative (Negative); Color,Urine Yellow; Glucose,Urine (UA) Negative (Negative); Ketones,Urine Negative (Negative); Leukocyte Esterase,Urine Negative (Negative); Nitrite,Urine Negative (Negative); PH, Urine 6.5 (5.0-8.0); Protein,Urine Trace (Negative); Specific Gravity,Urine 1.017 (1.001-1.035); Urobilinogen,Urine <2.0 mg/dL (<2.0)
[2019-01-28] MEDS ORDERED: ACYCLOVIR SODIUM 500 MG in SODIUM CHLORIDE 0.9% 100 ML IVPB STA (10:47)
[2019-01-28] MEDS ORDERED: ALBUTEROL NEBULIZED 2.5 MG/3 ML INHALATION STA (10:52)
[2019-01-28] MEDS ORDERED: SODIUM CHLORIDE 0.9% 1,000 ML IV STA (10:58)
[2019-01-28] MEDS ORDERED: NALOXONE 0.4 MG/ML 1 ML VIAL IV PRN (11:02)
[2019-01-28] MEDS ORDERED: ACETAMINOPHEN TAB 325 MG TAB PO PRN (11:02)
[2019-01-28] MEDS: SODIUM CHLORIDE 0.9% 1,000 ML IV SCH ×2 (12:38→21:16)
--- NOTE | 2019-01-28 13:12 | XR ---
EXAMINATION TYPE: XR chest 1V portable DATE OF EXAM: 01/28/2019 Comparison: 01/28/2019 Clinical History: 73-year-old male line placement Findings: Right IJ CVC tip within the right atrium. Increasing airspace opacities right upper lobe and left bas e. Background interstitial changes redemonstrated. Posterior spinal fusion hardware in the upper thor acic spine. Heart upper limits of normal in size. Impression: 1. Right IJ CVC tip in the right atrium. 2. Multifocal airspace disease redemonstrated, slightly increased right upper lobe.
[2019-01-28 13:49] LABS: Glucose,Whole Blood 90 mg/dL (75-99)
[2019-01-28] MEDS ORDERED: HEPARIN SODIUM,PORCINE 5,000 UNIT/ML 1 ML VIAL IV PRN (14:18)
--- NOTE | 2019-01-28 14:26 | P.HPIM ---
History of Present Illness This is a pleasant 73-year-old male came with altered mental status doesn't know why patient came to the hospital patient to mental status improved now able to give a good history but although not a very good historian to start with. Patient was brought in with fever and altered mental status patient chest x-ray although doesn't show any clear cut pneumonia there is some infiltrate on the CAT scan which without any significant a bronchogram that patient may be an early status of pneumonia and expected to develop infiltrate once rehydrated him patient is complaining cough is significant with the some sputum production. Patient was recently treated for suspected shingles in the left flank area doesn't have much of shingle rash when I valid the patient patient denied any dysuria increased urinary frequency. Patient was quite a bit hypotensive is accordingly over that this time patient went into A. fib with rapid ventricular rate patient was cardioverted twice elective electrocardioversion after which patient was converted to sinus rhythm is a proximal A. fib. Patient is on Lasix but can't give me a clear history was that she had had heart failure are not patient is significantly have hypervolemic at this time for which patient was started on IV fluids after boluses and patient is presently on norepinephrine as mentioned above. Patient is diabetic with a peripheral neuropathy. Patient is being admitted to ICU because of for possible septic shock there may be a competent of hypovolemia as well. Review of Systems REVIEW OF SYSTEMS: CONSTITUTIONAL: As mentioned in HPI HEENT: No recent visual problems or hearing problems. Denied any sore throat. CARDIOVASCULAR: No chest pain, orthopnea, PND, no palpitations, no syncope. PULMONARY: no hemoptysis. GASTROINTESTINAL: No diarrhea, no nausea, no vomiting, no abdominal pain. NEUROLOGICAL: No headaches, no weakness, no numbness. HEMATOLOGICAL: Denies any bleeding or petechiae. GENITOURINARY: Denies any burning micturition, frequency, or urgency. MUSCULOSKELETAL/RHEUMATOLOGICAL: Denies any joint pain, swelling, or any muscle pain. ENDOCRINE: Denies any polyuria or polydipsia. The rest of the 14-point review of systems is negative. Past Medical History Past Medical History: Coronary Artery Disease (CAD), Cancer, Diabetes Mellitus, Hypertension, Pneumonia Additional Past Medical History / Comment(s): lymphoma 4 times-yrs since chemo and radiation. Has a history of histoplasmosis which required the lung resection -HAS SOME SOB. hernia Last Myocardial Infarction Date:: unknown History of Any Multi-Drug Resistant Organisms: MRSA Date of last positivie culture/infection: 05/09/18 MDRO Source:: MRSA SPUTUM Past Surgical History: Cholecystectomy, Heart Catheterization With Stent, Hernia Repair Additional Past Surgical History / Comment(s): stem cell transplant/ LUNG RESECTION. 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 Past Anesthesia/Blood Transfusion Reactions: No Reported Reaction Additional Past Anesthesia/Blood Transfusion Reaction / Comment(s): no hx blood transfusion Date of Last Stent Placement:: 01-10-2013 Past Psychological History: No Psychological Hx Reported, Depression Smoking Status: Never smoker Past Alcohol Use History: None Reported Past Drug Use History: None Reported - Past Family History Mother Family Medical History: No Reported History Additional Family Medical History / Comment(s): Mother from a strangulated hernia at the age of 68yrs Father Additional Family Medical History / Comment(s): Father of a "ruptured" heart at the age of 72 yrs. Medications and Allergies Home Medications Medication Instructions Recorded Confirmed Type Furosemide [Lasix] 20 mg PO DAILY 08/25/16 01/28/19 History Aspirin [Adult Low Dose Aspirin EC] 81 mg PO DAILY 10/27/16 01/28/19 History Multivit-Min/FA/Lycopen/Lutein 1 tab PO DAILY 07/26/17 01/28/19 History [Centrum Silver Men Tablet] metFORMIN HCL [Glucophage] 500 mg PO AC-BID 07/26/17 01/28/19 History Metoprolol Tartrate [Lopressor] 12.5 mg PO BID 09/15/17 01/28/19 History Atorvastatin [Lipitor] 40 mg PO DAILY 04/30/18 01/28/19 History Glimepiride [Amaryl] 4 mg PO DAILY 04/30/18 01/28/19 History Insulin Glargine,Hum.rec.anlog 24 units SQ HS 04/30/18 01/28/19 History [Toujeo Solostar] Ipratropium-Albuterol Nebulize 3 ml INHALATION RT-Q6H PRN 05/08/18 01/28/19 History [Duoneb 0.5 mg-3 mg/3 ml Soln] Potassium Chloride ER [K-Dur 10] 10 meq PO DAILY 05/08/18 01/28/19 History Acetaminophen-Codeine 300-30mg 1 - 2 tab PO Q4HR PRN 01/28/19 01/28/19 History [Tylenol w/codeine #3] Amoxicillin/Potassium Clav 1 tab PO Q12HR 01/28/19 01/28/19 History [Augmentin 875-125 Tablet] Montelukast Sodium [Singulair] 10 mg PO HS 01/28/19 01/28/19 History Pregabalin [Lyrica] 75 mg PO TID 01/28/19 01/28/19 History Allergies Allergy/AdvReac Type Severity Reaction Status Date / Time No Known Allergies Allergy Verified 01/28/19 11:11 Physical Exam Vitals: Vital Signs Temp Pulse Resp BP Pulse Ox 01/28/19 14:00 97.8 F 92 17 83/57 98 01/28/19 13:32 18 81/54 01/28/19 12:31 96 16 79/55 100 01/28/19 12:20 96 16 86/60 98 01/28/19 11:55 98 74/56 97 01/28/19 11:43 99 16 68/51 01/28/19 11:30 134 H 18 44/24 01/28/19 11:15 103 H 18 64/27 01/28/19 11:00 100 16 66/38 01/28/19 10:32 98.4 F 103 H 16 59/44 98 01/28/19 10:30 104 H 20 61/46 91 L 01/28/19 10:20 106 H 25 H 61/46 01/28/19 10:18 106 H 18 61/46 01/28/19 10:10 107 H 26 H 56/40 01/28/19 09:20 115 H 31 H 65/49 96 01/28/19 09:15 99.3 F 01/28/19 09:10 116 H 21 113/76 97 01/28/19 09:00 124 H 22 65/46 01/28/19 08:40 126 H 23 101/64 01/28/19 08:30 125 H 25 H 86/66 01/28/19 08:20 125 H 25 H 86/66 97 01/28/19 08:07 102.4 F H 131 H 20 86/66 91 L Intake and Output 01/27/19 01/28/19 01/28/19 22:59 06:59 14:59 Intake Total 225 Output Total 925 Balance -700 Intake: IV 225 Sodium Chloride 0.9% 1, 100 000 ml @ 100 mls/hr IV . Q10H [facility] Rx#:[id number] Vancomycin 1,500 mg In 125 Sodium Chloride 0.9% 250 ml @ 125 mls/hr IVPB ONCE STA Rx#:[id number] Output: Urine 925 Other: Weight 78.925 kg PHYSICAL EXAMINATION: GENERAL: The patient is alert and oriented x3, not in any acute distress. Well developed, well nourished. Patient appears to be fatigued HEENT: Pupils are round and equally reacting to light. EOMI. No scleral icterus. No conjunctival pallor. Normocephalic, atraumatic. No pharyngeal erythema. No thyromegaly. CARDIOVASCULAR: S1 and S2 present. No murmurs, rubs, or gallops. PULMONARY: Chest is clear to auscultation, no wheezing or crackles. ABDOMEN: Soft, nontender, nondistended, normoactive bowel sounds. No palpable organomegaly. MUSCULOSKELETAL: No joint swelling or deformity. EXTREMITIES: No cyanosis, clubbing, or pedal edema. NEUROLOGICAL: Gross neurological examination did not reveal any focal deficits. SKIN: No rashes. Results CBC & Chem 7: 01/28/19 08:16 01/28/19 08:16 Labs: Abnormal Lab Results - Last 24 Hours (Table) 01/28/19 01/28/19 01/28/19 Range/Units 08:16 08:16 10:10 WBC 16.7 H (3.8-10.6) k/uL Neutrophils # (Manual) 11.86 H (1.3-7.7) k/uL Sodium 132 L (137-145) mmol/L Carbon Dioxide 21 L (22-30) mmol/L BUN 36 H (9-20) mg/dL Creatinine 1.75 H (0.66-1.25) mg/dL Glucose 153 H (74-99) mg/dL Urine Protein Trace H (Negative) Thrombosis Risk Factor Assmnt - Choose All That Apply Any of the Below Risk Factors Present?: Yes Each Factor Represents 1 point: Obesity (BMI >25) Other Risk Factors: Yes Each Risk Factor Represents 2 Points: Age 61-74 years, Malignancy Other congenital or acquired thrombophilia - If yes, enter type in comment: No Thrombosis Risk Factor Assessment Total Risk Factor Score: 5 Thrombosis Risk Factor Assessment Level: High Risk Assessment and Plan Plan: -Septic shock: Patient is presently on norepinephrine possible source of shock is pneumonia testing his symptoms although no significant infiltrate was found in the x-ray once once he is hydrated and expecting to see infiltrate chest x- ray will be up in for tomorrow. Patient will be continued on vancomycin ceftriaxone will be ordered sputum cultures will be obtained awaiting blood cultures influenza testing is negative. Continue with IV fluids at 100 mL/h -New-onset A. fib with rapid ventricular rate patient her proximal A. fib precipitated by sepsis will obtain echocardiogram patient will be started on anticoagulation as he had a cardioversion until cardiology evaluated the patient cardiology will be consulted echocardiogram will be obtained. Patient is p resently rate controlled after cardioversion. Norco-hypervolemic hyponatremia expected to improve with IV fluids -Possible acute renal failure secondary to acute tubular necrosis and prerenal azotemia from sepsis expected to improve with IV fluids -Coronary artery disease next and-type 2 diabetes mellitus patient metformin will be held because of sepsis and acute renal failure and the rest of his home regimen will be resumed along with sliding scale insulin -Hypertension patient is presently hypotensive and septic. -History of lymphoma in the past which is in remission. -History of histoplasmosis in the past and had C. diff colitis to in the past -Toxic encephalopathy secondary to sepsis which improved now
[2019-01-28] MEDS ORDERED: HEPARIN SOD,PORK IN 0.45% NACL 25,000 UNIT in 0.45% NACL 1 250ML.BAG IV SCH (14:30)
[2019-01-28 16:26] LABS: Glucose,Whole Blood 121 mg/dL (75-99)
[2019-01-28] MEDS: NOREPINEPHRINE 4 MG in SODIUM CHLORIDE 0.9% 250 ML IV ONE ×2 (16:27→21:20)
[2019-01-28] MEDS: PIPERACILLIN-TAZOBACTAM 3.375 GM in SODIUM CHLORIDE 0.9% 100 ML IVPB SCH (16:43)
[2019-01-28] MEDS: PREGABALIN 75 MG CAP PO SCH ×2 (16:43→21:12)
--- NOTE | 2019-01-28 17:04 | P.CNPUL ---
History of Present Illness Consult date: 01/28/19 Requesting physician: Francisco Javier Deluna Chief complaint: altered mental status History of present illness: this is 73-year-old white male patient of Dr. Josie Tapia a history of coronary artery disease with previous stenting, diabetes mellitus, hypertension, previous episodes of pneumonia, lymphoma currently in remission, history of histoplasmosis requiring lung resection, previous history of MRSA pneumonia, was brought into the emergency department on 01/28/2019 per EMS for evaluation of acute mental status changes, patient was found by his this morning. He will unresponsive, he had vomited, and possibly aspirated. Patient was last seen well last night, apparently yesterday patient was feeling well, she was actually out with his grandson, did not have any specific complaints. patient was hypotensive in an ambulance, and fluid bolus was started, he was found to be in new onset A. fib RVR, his systolic was in the 50s, and because of hemodynamic instability patient was cardioverted in the emergency department. He was cardioverted twice and he is now in sinus mechanism, he has been started on hep moe infusion for anticoagulation, and he was started on empiric antibiotics initially with Rocephin and vancomycin, and she was given a dose of IV Acyclovir. Apparently last week patient also had herpetic pain along his dermatome on his right lower back there is no visible rash but patient has been taking oral acyclovir, especially in view of his history of bone marrow transplant. patient did receive a total of 3 l and fluid boluses,currently has blood pressure is 90/74 with a mean of 79, he is in sinus mechanism with a rate of 90 BPM, she was febrile on presentation with simple 102.4F, his mentation has improved, patient is awake and alert, and he seems to be back to his baseline, he is conversant, and giving history to providers.brain CT showed age- related atrophic and chronic small vessel ischemic changes without acute intracranial process. chest x-ray showed left basilar and right upper lobe opacities, trace effusions.labs revealed white blood cell count of 16.7, hemoglobin of 14.2, remission profile was within normal limits, sodium is 132, potassium is 4.8, chloride is 98, CO2 is 21, B1 is 36 creatinine 1.75, LFTs are within normal limits, proBNP was 1120, urinalysis was negative for signs of infection, influenza screen was negative. He was placed in the intensive care un it for close hemodynamic monitoring, and we're consulted for critical care management Review of Systems All systems: negative Constitutional: Denies chills, Denies fever Eyes: denies blurred vision, denies pain Ears, nose, mouth and throat: Denies headache, Denies sore throat Cardiovascular: Denies chest pain, Denies shortness of breath Respiratory: Denies cough Gastrointestinal: Denies abdominal pain, Denies diarrhea, Denies nausea, Denies vomiting Musculoskeletal: Denies myalgias Integumentary: Denies pruritus, Denies rash Neurological: Reports change in mentation, Denies numbness, Denies weakness Psychiatric: Denies anxiety, Denies depression Endocrine: Denies fatigue, Denies weight change Past Medical History Past Medical History: Coronary Artery Disease (CAD), Cancer, Diabetes Mellitus, Hypertension, Pneumonia Additional Past Medical History / Comment(s): lymphoma 4 times-yrs since chemo and radiation. Has a history of histoplasmosis which required the lung resection -HAS SOME SOB. hernia Last Myocardial Infarction Date:: unknown History of Any Multi-Drug Resistant Organisms: MRSA Date of last positivie culture/infection: 05/09/18 MDRO Source:: MRSA SPUTUM Past Surgical History: Cholecystectomy, Heart Catheterization With Stent, Hernia Repair Additional Past Surgical History / Comment(s): stem cell transplant/ LUNG RESECTION. 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 Past Anesthesia/Blood Transfusion Reactions: No Reported Reaction Additional Past Anesthesia/Blood Transfusion Reaction / Comment(s): no hx blood transfusion Date of Last Stent Placement:: 01-10-2013 Past Psychological History: No Psychological Hx Reported, Depression Smoking Status: Never smoker Past Alcohol Use History: None Reported Past Drug Use History: None Reported - Past Family History Mother Family Medical History: No Reported History Additional Family Medical History / Comment(s): Mother from a strangulated hernia at the age of 68yrs Father Additional Family Medical History / Comment(s): Father of a "ruptured" heart at the age of 72 yrs. Medications and Allergies Home Medications Medication Instructions Recorded Confirmed Type Furosemide [Lasix] 20 mg PO DAILY 08/25/16 01/28/19 History Aspirin [Adult Low Dose Aspirin EC] 81 mg PO DAILY 10/27/16 01/28/19 History Multivit-Min/FA/Lycopen/Lutein 1 tab PO DAILY 07/26/17 01/28/19 History [Centrum Silver Men Tablet] metFORMIN HCL [Glucophage] 500 mg PO AC-BID 07/26/17 01/28/19 History Metoprolol Tartrate [Lopressor] 12.5 mg PO BID 09/15/17 01/28/19 History Atorvastatin [Lipitor] 40 mg PO DAILY 04/30/18 01/28/19 History Glimepiride [Amaryl] 4 mg PO DAILY 04/30/18 01/28/19 History Insulin Glargine,Hum.rec.anlog 24 units SQ HS 04/30/18 01/28/19 History [Toujeo Solostar] Ipratropium-Albuterol Nebulize 3 ml INHALATION RT-Q6H PRN 05/08/18 01/28/19 History [Duoneb 0.5 mg-3 mg/3 ml Soln] Potassium Chloride ER [K-Dur 10] 10 meq PO DAILY 05/08/18 01/28/19 History Acetaminophen-Codeine 300-30mg 1 - 2 tab PO Q4HR PRN 01/28/19 01/28/19 History [Tylenol w/codeine #3] Amoxicillin/Potassium Clav 1 tab PO Q12HR 01/28/19 01/28/19 History [Augmentin 875-125 Tablet] Montelukast Sodium [Singulair] 10 mg PO HS 01/28/19 01/28/19 History Pregabalin [Lyrica] 75 mg PO TID 01/28/19 01/28/19 History Allergies Allergy/AdvReac Type Severity Reaction Status Date / Time No Known Allergies Allergy Verified 01/28/19 11:11 Physical Exam Vitals: Vital Signs Temp Pulse Resp BP Pulse Ox 01/28/19 16:15 90 19 90/74 99 01/28/19 16:00 93 16 92/56 100 01/28/19 15:45 22 87/53 97 01/28/19 15:30 93 24 90/57 98 01/28/19 15:29 98 01/28/19 15:15 92 19 88/50 99 01/28/19 15:00 91 20 81/60 97 01/28/19 14:45 91 19 83/59 100 01/28/19 14:30 90 17 80/54 99 01/28/19 14:15 92 26 H 85/54 99 01/28/19 14:00 97.8 F 92 17 83/57 98 01/28/19 13:32 18 81/54 01/28/19 12:31 96 16 79/55 100 01/28/19 12:20 96 16 86/60 98 01/28/19 11:55 98 74/56 97 01/28/19 11:43 99 16 68/51 01/28/19 11:30 134 H 18 44/24 01/28/19 11:15 103 H 18 64/27 01/28/19 11:00 100 16 66/38 01/28/19 10:32 98.4 F 103 H 16 59/44 98 01/28/19 10:30 104 H 20 61/46 91 L 01/28/19 10:20 106 H 25 H 61/46 01/28/19 10:18 106 H 18 61/46 01/28/19 10:10 107 H 26 H 56/40 01/28/19 09:20 115 H 31 H 65/49 96 01/28/19 09:15 99.3 F 01/28/19 09:10 116 H 21 113/76 97 01/28/19 09:00 124 H 22 65/46 01/28/19 08:40 126 H 23 101/64 01/28/19 08:30 125 H 25 H 86/66 01/28/19 08:20 125 H 25 H 86/66 97 01/28/19 08:07 102.4 F H 131 H 20 86/66 91 L Intake and Output 01/28/19 01/28/19 01/28/19 06:59 14:59 22:59 Intake Total 225 400 Output Total 925 600 Balance -700 -200 Intake: IV 225 400 Acyclovir Sodium 500 mg 100 In Sodium Chloride 0.9% 100 ml @ 110 mls/hr IVPB ONCE STA Rx#:[id number] Sodium Chloride 0.9% 1, 100 200 000 ml @ 100 mls/hr IV . Q10H [facility] Rx#:[id number] Vancomycin 1,500 mg In 125 Sodium Chloride 0.9% 250 ml @ 125 mls/hr IVPB ONCE STA Rx#:[id number] cefTRIAXone 2 gm In 100 Sodium Chloride 0.9% 50 ml @ 100 mls/hr IVPB Q24HR [facility] Rx#:[id number] Output: Urine 925 600 Other: Voiding Method Indwelling Catheter Indwelling Catheter Weight 78.925 kg GENERAL EXAM: Alert, very pleasant, 73-year-old white male, with a big abrasion on his forehead on his on the left side, comfortable in no apparent distress. HEAD: Normocephalic/atraumatic. EYES: Normal reaction of pupils, equal size. Conjunctiva pink, sclera white. NOSE: Clear with pink turbinates. THROAT: No erythema or exudates. NECK: No masses, no JVD, no thyroid enlargement, no adenopathy. CHEST: No chest wall deformity. Symmetrical expansion. LUNGS: Equal air entry with Limited scattered crackles, wheeze, rhonchi or dullness. CVS: Regular rate and rhythm, normal S1 and S2, no gallops, no murmurs, no rubs ABDOMEN: Soft, nontender. No hepatosplenomegaly, normal bowel sounds, no guarding or rigidity. EXTREMITIES: No clubbing, no edema, no cyanosis, 2+ pulses and upper and lower extremities. MUSCULOSKELETAL: Muscle strength and tone normal. SPINE: No scoliosis or deformity SKIN: No rashes CENTRAL NERVOUS SYSTEM: Alert and oriented -3. No focal deficits, tone is normal in all 4 extremities. PSYCHIATRIC: Alert and oriented -3. Appropriate affect. Intact judgment and insight. Results - Laboratory Findings CBC and BMP: 01/28/19 08:16 01/28/19 08:16 PT/INR, D-dimer PT 10.7 sec (9.0-12.0) 01/28/19 08:16 INR 1.0 (<1.2) 01/28/19 08:16 Abnormal lab findings: Abnormal Labs 01/28/19 01/28/19 01/28/19 08:16 08:16 10:10 WBC 16.7 H Neutrophils # (Manual) 11.86 H Sodium 132 L Carbon Dioxide 21 L BUN 36 H Creatinine 1.75 H Glucose 153 H POC Glucose (mg/dL) Urine Protein Trace H 01/28/19 16:24 WBC Neutrophils # (Manual) Sodium Carbon Dioxide BUN Creatinine Glucose POC Glucose (mg/dL) 121 H Urine Protein - Diagnostic Findings Chest x-ray: report reviewed, image reviewed Assessment and Plan Plan: assessment: #1. Altered mental status, possibly related to sepsis, and metabolic encephalopathy #2. Bilateral pneumonia, possibly aspiration related, chest x-ray showed multifocal airspace disease involving right upper lobe and left base #3.acute kidney injury related to ATN #4. New-onset A. fib with RVR, status post cardioversion 2, and patient is currently in sinus rhythm #5. Hypotension, possibly related to septic shock, improved with IV hydration #6. history of herpetic neuralgia on the left posterior lumbar dermatome, patient is on Acyclovir #7.history of CAD with previous stenting #8. History of lymphoma, status post stem cell transplant #9. History of histoplasmosis status post lung resection and chronic dyspnea #10. History of MRSA pneumonia #11. Non smoker #12. History of interstitial pulmonary fibrosis #13. Depression Plan: Continue vancomycin, we will switch Rocephin to Zosyn for possibility of aspiration pneumonia, continue IV fluids, heparin infusion, cardiology consultation is pending in view of new onset A. fib with RVR, blood cultures are pending, repeat chest x-ray in the morning, mentation has much improved, patient is to be back to baseline, is awake and alert, oriented 3, he denies any significant shortness of breath,afebrile, hemodynamically stable. Were covering for Dr. Urias who had previously seen this patient in consultation. patient will remain in the intensive care unit. We'll follow I performed a history & physical examination of the patient and discussed their management with my nurse practitioner, Toña Peterson. I reviewed the nurse practitioner's note and agree with the documented findings and plan of care. Lung sounds are positive for diminished breath sounds with a few scattered crackles. The findings and the impression was discussed with the patient. I attest to the documentation by the nurse practitioner. Time with Patient: Greater than 30
[2019-01-28] MEDS: INSULIN ASPART (NovoLOG) 100 UNIT/ML VIAL SQ SCH ×2 (17:16→21:13)
[2019-01-28 19:16] LABS: HCT 39.3 % (39.0-53.0); HGB 12.5 gm/dL (13.0-17.5); MCH 30.3 pg (25.0-35.0); MCHC 31.8 g/dL (31.0-37.0); Mean Platelet Volume 7.4; Platelet Count 280 k/uL (150-450); RBC 4.13 m/uL (4.30-5.90); RDW 13.3 % (11.5-15.5); WBC 19.4 k/uL (3.8-10.6)
[2019-01-28 19:17] LABS: MCV 95.3 fL (80.0-100.0)
[2019-01-28 19:32] LABS: Band Neutrophils % 1 %; Lymphocytes # (M) 1.55 k/uL (1.0-4.8); Monocytes # (M) 0.19 k/uL (0-1.0); Neutrophils % (M) 91 %; Nucleated Red Blood Cells 0 /100 WBC (0-0); Total Cells Counted 200
[2019-01-28 20:41] LABS: Glucose,Whole Blood 250 mg/dL (75-99)
[2019-01-28] MEDS: METOPROLOL TARTRATE 12.5 MG TAB PO SCH (21:05)
[2019-01-28] MEDS: ACYCLOVIR 200 MG CAP PO SCH (21:12)
[2019-01-28] MEDS: FAMOTIDINE 20 MG TAB PO SCH (21:12)
[2019-01-28] MEDS: INSULIN DETEMIR (LEVEMIR) 100 UNIT/ML SYR SQ SCH (21:12)
[2019-01-29] MEDS: PIPERACILLIN-TAZOBACTAM 3.375 GM in SODIUM CHLORIDE 0.9% 100 ML IVPB SCH ×3 (00:48→15:50)
[2019-01-29] MEDS: VANCOMYCIN 1,500 MG in SODIUM CHLORIDE 0.9% 250 ML IVPB SCH ×2 (04:38→20:39)
[2019-01-29 05:20] LABS: HCT 34.3 % (39.0-53.0); HGB 11.2 gm/dL (13.0-17.5); MCH 30.1 pg (25.0-35.0); MCHC 32.8 g/dL (31.0-37.0); MCV 91.7 fL (80.0-100.0); Mean Platelet Volume 7.5; Platelet Count 309 k/uL (150-450); RBC 3.74 m/uL (4.30-5.90); RDW 13.3 % (11.5-15.5); WBC 16.9 k/uL (3.8-10.6)
[2019-01-29 05:31] LABS: Calcium 7.9 mg/dL (8.4-10.2); Magnesium 1.6 mg/dL (1.6-2.3); Potassium 4.1 mmol/L (3.5-5.1)
[2019-01-29 06:08] LABS: Lymphocytes # (M) 2.37 k/uL (1.0-4.8); Monocytes # (M) 1.52 k/uL (0-1.0); Neutrophils # (M) 13.01 k/uL (1.3-7.7); Neutrophils % (M) 77 %; Nucleated Red Blood Cells 0 /100 WBC (0-0); Total Cells Counted 100
[2019-01-29] MEDS: MAGNESIUM SULFATE-D5W PMX 1 GM in DEXTROSE/WATER 1 100ML.BAG IVPB SCH ×2 (06:49→08:15)
[2019-01-29] MEDS: SODIUM CHLORIDE 0.9% 1,000 ML IV SCH ×2 (06:50→15:51)
[2019-01-29 06:54] LABS: Glucose,Whole Blood 149 mg/dL (75-99)
[2019-01-29] MEDS: INSULIN ASPART (NovoLOG) 100 UNIT/ML VIAL SQ SCH ×4 (06:55→21:09)
[2019-01-29] MEDS: ACYCLOVIR 200 MG CAP PO SCH ×2 (08:16→20:54)
[2019-01-29] MEDS: FAMOTIDINE 20 MG TAB PO SCH ×2 (08:17→20:54)
[2019-01-29] MEDS: ATORVASTATIN 40 MG TAB PO SCH (08:17)
[2019-01-29] MEDS: PREGABALIN 75 MG CAP PO SCH ×3 (08:17→23:08)
--- NOTE | 2019-01-29 08:19 | XR ---
EXAMINATION TYPE: XR chest 1V DATE OF EXAM: 01/29/2019 COMPARISON: Chest x-ray 01/28/2019 HISTORY: Pneumonia TECHNIQUE: Single frontal view of the chest is obtained. FINDINGS: There is less confluent density seen in the right upper lobe. Central venous catheter. Mely nges are stable. Heart remains enlarged. No evident pneumothorax or pleural effusion. Patchy density present at the left lung base. Right costophrenic angle is blunted. IMPRESSION: There is some improvement in aeration.
[2019-01-29] MEDS: IPRATROPIUM-ALBUTEROL 3 ML NEB INHALATION PRN ×2 (08:40→19:31)
[2019-01-29] MEDS: NOREPINEPHRINE 4 MG in SODIUM CHLORIDE 0.9% 250 ML IV SCH (08:56)
[2019-01-29] MEDS: METOPROLOL TARTRATE 12.5 MG TAB PO SCH ×2 (08:57→21:21)
[2019-01-29] MEDS: ASPIRIN 81 MG PO SCH (08:58)
[2019-01-29] MEDS ORDERED: HYDROCORTISONE SUCCINATE 100 MG/2 ML VIAL IV SCH (11:30)
--- NOTE | 2019-01-29 11:50 | ECHOF ---
Referral Reason:A,fib MEASUREMENTS -------- HEIGHT: 172.7 cm WEIGHT: 78.9 kg BP: 83/57 RVIDd: 2.4 cm (< 3.3) IVSd: 1.6 cm (0.6 - 1.1) LVIDd: 3.3 cm (3.9 - 5.3) LVPWd: 1.4 cm (0.6 - 1.1) IVSs: 1.8 cm LVIDs: 2.5 cm LVPWs: 1.8 cm LAESV Index (A-L): 12.19 ml/m Ao Diam: 3.3 cm (2.0 - 3.7) AV Cusp: 1.1 cm (1.5 - 2.6) LA Diam: 2.9 cm (2.7 - 3.8) MV EXCURSION: 12.842 mm (> 18.000) MV EF SLOPE: 43 mm/s (70 - 150) EPSS: 1.4 cm MV E Dontae: 0.76 m/s MV DecT: 150 ms MV A Dontae: 1.06 m/s MV E/A Ratio: 0.72 AV maxP.73 mmHg AV meanP.37 mmHg AR PHT: 448 ms RAP: 5.00 mmHg RVSP: 43.29 mmHg FINDINGS -------- Sinus rhythm. This was a technically adequate study. The left ventricular size is normal. There is moderate concentric left ventricular hypertrophy. O verall left ventricular systolic function is normal with, an EF between 55 - 60 %. The right ventricle is normal in size. Normal LA size by volume 22+/-6 ml/m2. The right atrial size is normal. There is mild aortic valve sclerosis. There is mild aortic regurgitation. Peak/mean gradient acro ss the Aortic Valve is 15.73mmHg / 8.37mmHg. Mild mitral annular calcification present. Mild mitral regurgitation is present. The tricuspid valve appears structurally normal. Mild tricuspid regurgitation present. There is m ild pulmonary hypertension. The right ventricular systolic pressure, as measured by Doppler, is 43. 29mmHg. There is no pulmonic regurgitation present. The aortic root size is normal. Normal inferior vena cava with normal inspiratory collapse consistent with estimated right atrial pre ssure of 5 mmHg. There is no pericardial effusion. CONCLUSIONS -------- 1. Sinus rhythm. 2. This was a technically adequate study. 3. The left ventricular size is normal. 4. There is moderate concentric left ventricular hypertrophy. 5. Overall left ventricular systolic function is normal with, an EF between 55 - 60 %. 6. Normal LA size by volume 22+/-6 ml/m2. 7. There is mild aortic valve sclerosis. 8. There is mild aortic regurgitation. 9. Peak/mean gradient across the Aortic Valve is 15.73mmHg / 8.37mmHg. 10. Mild mitral annular calcification present. 11. Mild mitral regurgitation is present. 12. The tricuspid valve appears structurally normal. 13. Mild tricuspid regurgitation present. 14. There is mild pulmonary hypertension. 15. There is no pulmonic regurgitation present. 16. The aortic root size is normal. 17. Normal inferior vena cava with normal inspiratory collapse consistent with estimated right atrial pressure of 5 mmHg. 18. There is no pericardial effusion. [employer] SUPERVISOR: Opal Reid RDCS
[2019-01-29 11:51] LABS: Glucose,Whole Blood 172 mg/dL (75-99)
--- NOTE | 2019-01-29 12:58 | P.GSCN ---
History of Present Illness Consult date: 01/29/19 Reason for Consult: adrenal hemorrhage History of present illness: Mr. Phillips is 73-year-old male who was admitted to the hospital with AMS He was unresponsive, he had vomited, and possibly aspirated. On presentation patient was also febrile at 102.4 . patient was also hypotensive and was found to be in new onset A. fib RVR, his systolic was in the 50s, and because of hemodynamic instability patient was cardioverted in the emergency department. Subsequently patient was placed on heparin drip. He underwent a CT abdomen and pelvis which showed a new 3.6 lesion in the right adrenal gland with surrounding stranding around the adrenal. Of note he had a CT in 04/2018 which showed a 2.4 cm lesion on the left and no lesions on the right. Based on most recent CT lesion on the left has resolved. On evaluation this am he denies any complaints. His MAPS in the 70s with low dose of levophed. Of note patient did receive 100 mg of hydrocortisone in the ED yesterday, His cortisol level is 34 and his ACTH was elevated at 91. Review of Systems - Constitutional Reports fever, Reports weakness - EENT Ears, nose, mouth and throat: Denies dysphagia, Denies headache - Cardiovascular Denies chest pain, Denies leg edema, Denies shortness of breath - Respiratory Reports cough, Denies dyspnea - Gastrointestinal Reports nausea, Reports vomiting, Denies abdominal pain - Genitourinary Denies flank pain, Denies hematuria - Neurological Reports weakness, Denies confusion - Psychiatric Denies anxiety, Denies depression Past Medical History Past Medical History: Coronary Artery Disease (CAD), Cancer, Diabetes Mellitus, Hypertension, Pneumonia Additional Past Medical History / Comment(s): lymphoma 4 times-yrs since chemo and radiation. Has a history of histoplasmosis which required the lung resection -HAS SOME SOB. hernia Last Myocardial Infarction Date:: unknown History of Any Multi-Drug Resistant Organisms: MRSA Year Discovered:: 05/09/18 MDRO Source:: MRSA SPUTUM Past Surgical History: Cholecystectomy, Heart Catheterization With Stent, Hernia Repair Additional Past Surgical History / Comment(s): stem cell transplant/ LUNG RESECTION. 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 Past Anesthesia/Blood Transfusion Reactions: No Reported Reaction Additional Past Anesthesia/Blood Transfusion Reaction / Comm: no hx blood transfusion Date of Last Stent Placement:: 01-10-2013 Past Psychological History: No Psychological Hx Reported, Depression Smoking Status: Never smoker Past Alcohol Use History: None Reported Past Drug Use History: None Reported - Past Family History Mother Family Medical History: No Reported History Additional Family Medical History / Comment(s): Mother from a strangulated hernia at the age of 68yrs Father Additional Family Medical History / Comment(s): Father of a "ruptured" heart at the age of 72 yrs. Medications and Allergies Home Medications Medication Instructions Recorded Confirmed Type RX: Furosemide [Lasix] 20 mg PO DAILY 08/25/16 01/28/19 History RX: Aspirin [Adult Low Dose 81 mg PO DAILY 10/27/16 01/28/19 History Aspirin EC] RX: Multivit-Min/FA/Lycopen/Lutein 1 tab PO DAILY 07/26/17 01/28/19 History [Centrum Silver Men Tablet] RX: metFORMIN HCL [Glucophage] 500 mg PO AC-BID 07/26/17 01/28/19 History RX: Metoprolol Tartrate [Lopressor] 12.5 mg PO BID 09/15/17 01/28/19 History RX: Atorvastatin [Lipitor] 40 mg PO DAILY 04/30/18 01/28/19 History RX: Glimepiride [Amaryl] 4 mg PO DAILY 04/30/18 01/28/19 History RX: Insulin Glargine,Hum.rec.anlog 24 units SQ HS 04/30/18 01/28/19 History [Toubethany Solostar] RX: Ipratropium-Albuterol Nebulize 3 ml INHALATION RT-Q6H PRN 05/08/18 01/28/19 History [Duoneb 0.5 mg-3 mg/3 ml Soln] RX: Potassium Chloride ER [K-Dur 10 meq PO DAILY 05/08/18 01/28/19 History 10] Acetaminophen-Codeine 300-30mg 1 - 2 tab PO Q4HR PRN 01/28/19 01/28/19 History [Tylenol w/codeine #3] Amoxicillin/Potassium Clav 1 tab PO Q12HR 01/28/19 01/28/19 History [Augmentin 875-125 Tablet] Montelukast Sodium [Singulair] 10 mg PO HS 01/28/19 01/28/19 History Pregabalin [Lyrica] 75 mg PO TID 01/28/19 01/28/19 History Allergies Allergy/AdvReac Type Severity Reaction Status Date / Time No Known Allergies Allergy Verified 01/28/19 11:11 Surgical - Exam Vital Signs Temp Pulse Resp BP Pulse Ox 102.4 F H 131 H 20 86/66 91 L 01/28/19 08:07 01/28/19 08:07 01/28/19 08:07 01/28/19 08:07 01/28/19 08:07 - General well developed, well nourished, no distress, no pain - ENT normal nares, normal mucosa - Neck no venous distension, no deviated trachea - Respiratory normal expansion, normal respiratory effort - Abdomen Abdomen: soft, non tender, surgical scars (upper midline ), no distended - Psychiatric oriented to time, oriented to person, oriented to place Results - Labs 01/29/19 05:02 01/29/19 05:02 Abnormal Lab Results - Last 24 Hours (Table) 01/28/19 01/28/19 01/28/19 Range/Units 08:16 08:16 08:16 WBC 16.7 H (3.8-10.6) k/uL RBC (4.30-5.90) m/uL Hgb (13.0-17.5) gm/dL Hct (39.0-53.0) % Neutrophils # (Manual) 11.86 H (1.3-7.7) k/uL Monocytes # (Manual) (0-1.0) k/uL Sodium 132 L (137-145) mmol/L Chloride (98-107) mmol/L Carbon Dioxide 21 L (22-30) mmol/L BUN 36 H (9-20) mg/dL Creatinine 1.75 H (0.66-1.25) mg/dL Glucose 153 H (74-99) mg/dL POC Glucose (mg/dL) (75-99) mg/dL Calcium (8.4-10.2) mg/dL Procalcitonin 2.08 H (0.02-0.09) ng/mL ACTH (0.00-45.99) pg/mL Urine Protein (Negative) 01/28/19 01/28/19 01/28/19 Range/Units 10:10 16:24 18:51 WBC (3.8-10.6) k/uL RBC (4.30-5.90) m/uL Hgb (13.0-17.5) gm/dL Hct (39.0-53.0) % Neutrophils # (Manual) (1.3-7.7) k/uL Monocytes # (Manual) (0-1.0) k/uL Sodium 131 L (137-145) mmol/L Chloride (98-107) mmol/L Carbon Dioxide 21 L (22-30) mmol/L BUN 30 H (9-20) mg/dL Creatinine 1.47 H (0.66-1.25) mg/dL Glucose 216 H (74-99) mg/dL POC Glucose (mg/dL) 121 H (75-99) mg/dL Calcium 8.0 L (8.4-10.2) mg/dL Procalcitonin (0.02-0.09) ng/mL ACTH (0.00-45.99) pg/mL Urine Protein Trace H (Negative) 01/28/19 01/28/19 01/28/19 Range/Units 18:51 18:51 20:40 WBC 19.4 H (3.8-10.6) k/uL RBC 4.13 L (4.30-5.90) m/uL Hgb 12.5 L (13.0-17.5) gm/dL Hct (39.0-53.0) % Neutrophils # (Manual) 17.80 H (1.3-7.7) k/uL Monocytes # (Manual) (0-1.0) k/uL Sodium (137-145) mmol/L Chloride (98-107) mmol/L Carbon Dioxide (22-30) mmol/L BUN (9-20) mg/dL Creatinine (0.66-1.25) mg/dL Glucose (74-99) mg/dL POC Glucose (mg/dL) 250 H (75-99) mg/dL Calcium (8.4-10.2) mg/dL Procalcitonin (0.02-0.09) ng/mL ACTH 91.30 H (0.00-45.99) pg/mL Urine Protein (Negative) 01/29/19 01/29/19 01/29/19 Range/Units 05:02 05:02 06:53 WBC 16.9 H (3.8-10.6) k/uL RBC 3.74 L (4.30-5.90) m/uL Hgb 11.2 L (13.0-17.5) gm/dL Hct 34.3 L (39.0-53.0) % Neutrophils # (Manual) 13.01 H (1.3-7.7) k/uL Monocytes # (Manual) 1.52 H (0-1.0) k/uL Sodium 136 L (137-145) mmol/L Chloride 108 H (98-107) mmol/L Carbon Dioxide 19 L (22-30) mmol/L BUN 23 H (9-20) mg/dL Creatinine (0.66-1.25) mg/dL Glucose 127 H (74-99) mg/dL POC Glucose (mg/dL) 149 H (75-99) mg/dL Calcium 7.9 L (8.4-10.2) mg/dL Procalcitonin (0.02-0.09) ng/mL ACTH (0.00-45.99) pg/mL Urine Protein (Negative) Diabetes panel 01/28/19 01/28/19 01/29/19 Range/Units 08:16 18:51 05:02 Sodium 132 L 131 L 136 L (137-145) mmol/L Potassium 4.8 5.0 4.1 (3.5-5.1) mmol/L Chloride 98 103 108 H (98-107) mmol/L Carbon Dioxide 21 L 21 L 19 L (22-30) mmol/L BUN 36 H 30 H 23 H (9-20) mg/dL Creatinine 1.75 H 1.47 H 1.15 (0.66-1.25) mg/dL Glucose 153 H 216 H 127 H (74-99) mg/dL Calcium 8.9 8.0 L 7.9 L (8.4-10.2) mg/dL AST 44 (17-59) U/L ALT 30 (4-49) U/L Alkaline Phosphatase 85 (38-126) U/L Total Protein 6.3 (6.3-8.2) g/dL Albumin 3.7 (3.5-5.0) g/dL Calcium panel 01/28/19 01/28/19 01/29/19 Range/Units 08:16 18:51 05:02 Calcium 8.9 8.0 L 7.9 L (8.4-10.2) mg/dL Albumin 3.7 (3.5-5.0) g/dL Pituitary panel 01/28/19 01/28/19 01/28/19 Range/Units 08:16 18:51 18:51 Sodium 132 L 131 L (137-145) mmol/L Potassium 4.8 5.0 (3.5-5.1) mmol/L Chloride 98 103 (98-107) mmol/L Carbon Dioxide 21 L 21 L (22-30) mmol/L BUN 36 H 30 H (9-20) mg/dL Creatinine 1.75 H 1.47 H (0.66-1.25) mg/dL Glucose 153 H 216 H (74-99) mg/dL Calcium 8.9 8.0 L (8.4-10.2) mg/dL ACTH 91.30 H (0.00-45.99) pg/mL 01/29/19 Range/Units 05:02 Sodium 136 L (137-145) mmol/L Potassium 4.1 (3.5-5.1) mmol/L Chloride 108 H (98-107) mmol/L Carbon Dioxide 19 L (22-30) mmol/L BUN 23 H (9-20) mg/dL Creatinine 1.15 (0.66-1.25) mg/dL Glucose 127 H (74-99) mg/dL Calcium 7.9 L (8.4-10.2) mg/dL ACTH (0.00-45.99) pg/mL Adrenal panel 01/28/19 01/28/19 01/28/19 Range/Units 08:16 18:51 18:51 Sodium 132 L 131 L (137-145) mmol/L Potassium 4.8 5.0 (3.5-5.1) mmol/L Chloride 98 103 (98-107) mmol/L Carbon Dioxide 21 L 21 L (22-30) mmol/L BUN 36 H 30 H (9-20) mg/dL Creatinine 1.75 H 1.47 H (0.66-1.25) mg/dL Glucose 153 H 216 H (74-99) mg/dL Calcium 8.9 8.0 L (8.4-10.2) mg/dL Total Bilirubin 1.0 (0.2-1.3) mg/dL AST 44 (17-59) U/L ALT 30 (4-49) U/L Alkaline Phosphatase 85 (38-126) U/L Total Protein 6.3 (6.3-8.2) g/dL Albumin 3.7 (3.5-5.0) g/dL ACTH 91.30 H (0.00-45.99) pg/mL 01/29/19 Range/Units 05:02 Sodium 136 L (137-145) mmol/L Potassium 4.1 (3.5-5.1) mmol/L Chloride 108 H (98-107) mmol/L Carbon Dioxide 19 L (22-30) mmol/L BUN 23 H (9-20) mg/dL Creatinine 1.15 (0.66-1.25) mg/dL Glucose 127 H (74-99) mg/dL Calcium 7.9 L (8.4-10.2) mg/dL Total Bilirubin (0.2-1.3) mg/dL AST (17-59) U/L ALT (4-49) U/L Alkaline Phosphatase (38-126) U/L Total Protein (6.3-8.2) g/dL Albumin (3.5-5.0) g/dL ACTH (0.00-45.99) pg/mL Assessment and Plan Assessment: Mr. Phillips is a 73-year-old male admitted to the hospital with possible pneumonia. On presentation he was in A. fib with RVR he was also febrile at 102. Urology is consulted for possible adrenal hemorrhage. He underwent a CT on presentation that showed a 3.6 cm in the right adrenal gland this a new finding compared to CT from the months ago. Of note the CT from 9 months ago showed a lesion on the contralateral kidney that has now resolved. In the ED He receive 100 mg of hydrocortisone. His cortisol level was checked was and was 34 and his ACTH was 91. His cortisol level could be falsely elevated secondary to hydrocortisone administration, elevated ACTH concerning for adrenal crisis Plan: -Recheck ACTH and Cortisol level at noon -Hold heparin and continue monitoring CBC -Bed rest -If patient becomes hypotensive or required increased pressor support then will need hydrocortisone -Once kidney function stabilizes will need CT adrenal washout to better characterize the lesion Time with Patient: Greater than 30
[2019-01-29 13:01] LABS: HCT 33.3 % (39.0-53.0); HGB 10.8 gm/dL (13.0-17.5); MCH 29.6 pg (25.0-35.0); MCHC 32.5 g/dL (31.0-37.0); MCV 91.3 fL (80.0-100.0); Mean Platelet Volume 7.5; Platelet Count 249 k/uL (150-450); RBC 3.65 m/uL (4.30-5.90); RDW 13.3 % (11.5-15.5); WBC 9.9 k/uL (3.8-10.6)
[2019-01-29] MEDS: FLUDROCORTISONE 0.1 MG TAB PO SCH (13:02)
[2019-01-29 13:21] LABS: Lymphocytes # (M) 1.68 k/uL (1.0-4.8); Monocytes # (M) 0.59 k/uL (0-1.0); Neutrophils # (M) 7.62 k/uL (1.3-7.7); Neutrophils % (M) 77 %; Nucleated Red Blood Cells 0 /100 WBC (0-0); Poikilocytosis (M) Present; Total Cells Counted 100
--- NOTE | 2019-01-29 13:34 | P.PN ---
Subjective Progress Note Date: 01/29/19 Principal diagnosis: bilateral pneumonia, likely aspiration pneumonia, altered mental status, metabolic encephalopathy. this is 73-year-old white male patient of Dr. Josie Tapia a history of coronary artery disease with previous stenting, diabetes mellitus, hypertension, previous episodes of pneumonia, lymphoma currently in remission, history of histoplasmosis requiring lung resection, previous history of MRSA pneumonia, was brought into the emergency department on 01/28/2019 per EMS for evaluation of acute mental status changes, patient was found by his this morning. He will unresponsive, he had vomited, and possibly aspirated. Patient was last seen well last night, apparently yesterday patient was feeling well, she was actually out with his grandson, did not have any specific complaints. patient was hypotensive in an ambulance, and fluid bolus was started, he was found to be in new onset A. fib RVR, his systolic was in the 50s, and because of hemodynamic instability patient was cardioverted in the emergency department. He was cardioverted twice and he is now in sinus mechanism, he has been started on heparin infusion for anticoagulation, and he was started on empiric antibiotics initially with Rocephin and vancomycin, and she was given a dose of IV Acyclovir. Apparently last week patient also had herpetic pain along his dermatome on his right lower back there is no visible rash but patient has been taking oral acyclovir, especially in view of his history of bone marrow transplant. patient did receive a total of 3 l and fluid boluses,currently has blood pressure is 90/74 with a mean of 79, he is in sinus mechanism with a rate of 90 BPM, she was febrile on presentation with simple 102.4F, his mentation has improved, patient is awake and alert, and he seems to be back to his baseline, he is conversant, and giving history to providers.brain CT showed age- related atrophic and chronic small vessel ischemic changes without acute intracranial process. chest x-ray showed left basilar and right upper lobe opacities, trace effusions.labs revealed white blood cell count of 16.7, hemoglobin of 14.2, remission profile was within normal limits, sodium is 132, potassium is 4.8, chloride is 98, CO2 is 21, B1 is 36 creatinine 1.75, LFTs are within normal limits, proBNP was 1120, urinalysis was negative for signs of infection, influenza screen was negative. He was placed in the intensive care unit for close hemodynamic monitoring, and we're consulted for critical care management Reevaluated today on 01/25/2019, patient remains in the intensive care unit, still on norepinephrine at 0.02 mcg/kg/m. Patient is feeling better, breathing easier, chest x-ray continues to show bilateral infiltrates consistent with possible aspiration pneumonia. His CT of the abdomen and pelvis questioned adrenal hematoma/hemorrhage, hence I will go ahead and recommend hydrocortisone in stress doses for this patient since blood pressure remains marginal, and I will start the patient on Florinef. In the meantime medically the patient is feeling better, remains on antibiotics, chest x-ray is showing improvement compared to the admission chest x-ray. Hence I believe the findings on the chest x-ray yesterday were mostly related to aspiration. Unless proven otherwise.CBC is relatively normal left lites are normal BUN is 23 creatinine 1.15. Objective - Vital Signs Vital signs: Vital Signs Temp 98.1 F 01/29/19 12:00 Pulse 91 01/29/19 13:00 Resp 14 01/29/19 13:00 BP 86/55 01/29/19 13:00 Pulse Ox 96 01/29/19 13:00 Intake & Output 01/28/19 01/29/19 01/29/19 18:59 06:59 18:59 Intake Total 286.634 8598.661 1503.810 Output Total 1725 1145 430 Balance -885.004 486.461 2474.810 Weight 78.925 kg 80.8 kg Intake: IV 825 1450 700 Acyclovir Sodium 500 mg 100 In Sodium Chloride 0.9% 100 ml @ 110 mls/hr IVPB ONCE [facility] Rx#:[id number] Piperacillin-Tazobactam 3 100 .375 gm In Sodium Chloride 0.9% 100 ml @ 25 mls/hr IVPB Q8HR [facility] Rx# :[id number] Sodium Chloride 0.9% 1, 500 1200 600 000 ml @ 100 mls/hr IV . Q10H [facility] Rx#:[id number] Vancomycin 1,500 mg In 125 250 Sodium Chloride 0.9% 250 ml @ 125 mls/hr IVPB ONCE STA Rx#:[id number] cefTRIAXone 2 gm In 100 Sodium Chloride 0.9% 50 ml @ 100 mls/hr IVPB Q24HR [facility] Rx#:[id number] Intake, IV Titration 14.996 290.661 83.810 Amount Heparin Sod,Pork in 0.45% 14.996 NaCl 25,000 unit In 0.45 % NaCl 1 250ml.bag @ 12 UNITS/KG/HR 9.471 mls/hr IV .Q24H [facility] Rx#: [id number] Magnesium Sulfate-D5w Pmx 100 1 gm In Dextrose/Water 1 100ml.bag @ 100 mls/hr IVPB Q1H [facility] Rx#: [id number] Norepinephrine 4 mg In 90.661 59.388 Sodium Chloride 0.9% 250 ml @ 0.05 MCG/KG/MIN 15. 035 mls/hr IV .[id number] [facility] Rx#:[id number] Norepinephrine 4 mg In 24.422 Sodium Chloride 0.9% 250 ml @ 0.05 MCG/KG/MIN 15. 392 mls/hr IV .[id number] [facility] Rx#:[id number] Piperacillin-Tazobactam 3 100 .375 gm In Sodium Chloride 0.9% 100 ml @ 25 mls/hr IVPB Q8HR [facility] Rx# :[id number] Oral 720 Output: Urine 1725 1145 430 Other: Voiding Method Indwelling Catheter Indwelling Catheter Indwelling Catheter - Exam GENERAL EXAM: Alert, very pleasant, 73-year-old white male, with a big abrasion on his forehead on his on the left side, comfortable in no apparent distress. HEAD: Normocephalic/atraumatic. ENT, PERRLA, EOMI, no icterus, dry mucous membranes. No icterus. No JVD, no stridor. CHEST: No chest wall deformity. Symmetrical expansion. LUNGS: symmetrical expansion, minimal fine crackles at the bases. CVS: Regular rate and rhythm, normal S1 and S2, no gallops, no murmurs, no rubs ABDOMEN: Soft, nontender. No hepatosplenomegaly, normal bowel sounds, no guarding or rigidity. EXTREMITIES: No clubbing, no edema, no cyanosis, 2+ pulses and upper and lower extremities. MUSCULOSKELETAL: normal range of motion, no deformities. SKIN: No rashes CENTRAL NERVOUS SYSTEM: alert oriented 3 focal neurologic deficit. PSYCHIATRIC: normal mood affect and normal mental status examination - Labs CBC & Chem 7: 01/29/19 12:45 01/29/19 05:02 Labs: Abnormal Lab Results - Last 24 Hours (Table) 01/28/19 01/28/19 01/28/19 Range/Units 08:16 16:24 18:51 WBC (3.8-10.6) k/uL RBC (4.30-5.90) m/uL Hgb (13.0-17.5) gm/dL Hct (39.0-53.0) % Neutrophils # (Manual) (1.3-7.7) k/uL Monocytes # (Manual) (0-1.0) k/uL Sodium 131 L (137-145) mmol/L Chloride (98-107) mmol/L Carbon Dioxide 21 L (22-30) mmol/L BUN 30 H (9-20) mg/dL Creatinine 1.47 H (0.66-1.25) mg/dL Glucose 216 H (74-99) mg/dL POC Glucose (mg/dL) 121 H (75-99) mg/dL Calcium 8.0 L (8.4-10.2) mg/dL Procalcitonin 2.08 H (0.02-0.09) ng/mL ACTH (0.00-45.99) pg/mL 01/28/19 01/28/19 01/28/19 Range/Units 18:51 18:51 20:40 WBC 19.4 H (3.8-10.6) k/uL RBC 4.13 L (4.30-5.90) m/uL Hgb 12.5 L (13.0-17.5) gm/dL Hct (39.0-53.0) % Neutrophils # (Manual) 17.80 H (1.3-7.7) k/uL Monocytes # (Manual) (0-1.0) k/uL Sodium (137-145) mmol/L Chloride (98-107) mmol/L Carbon Dioxide (22-30) mmol/L BUN (9-20) mg/dL Creatinine (0.66-1.25) mg/dL Glucose (74-99) mg/dL POC Glucose (mg/dL) 250 H (75-99) mg/dL Calcium (8.4-10.2) mg/dL Procalcitonin (0.02-0.09) ng/mL ACTH 91.30 H (0.00-45.99) pg/mL 01/29/19 01/29/19 01/29/19 Range/Units 05:02 05:02 06:53 WBC 16.9 H (3.8-10.6) k/uL RBC 3.74 L (4.30-5.90) m/uL Hgb 11.2 L (13.0-17.5) gm/dL Hct 34.3 L (39.0-53.0) % Neutrophils # (Manual) 13.01 H (1.3-7.7) k/uL Monocytes # (Manual) 1.52 H (0-1.0) k/uL Sodium 136 L (137-145) mmol/L Chloride 108 H (98-107) mmol/L Carbon Dioxide 19 L (22-30) mmol/L BUN 23 H (9-20) mg/dL Creatinine (0.66-1.25) mg/dL Glucose 127 H (74-99) mg/dL POC Glucose (mg/dL) 149 H (75-99) mg/dL Calcium 7.9 L (8.4-10.2) mg/dL Procalcitonin (0.02-0.09) ng/mL ACTH (0.00-45.99) pg/mL 01/29/19 01/29/19 Range/Units 11:50 12:45 WBC (3.8-10.6) k/uL RBC 3.65 L (4.30-5.90) m/uL Hgb 10.8 L (13.0-17.5) gm/dL Hct 33.3 L (39.0-53.0) % Neutrophils # (Manual) (1.3-7.7) k/uL Monocytes # (Manual) (0-1.0) k/uL Sodium (137-145) mmol/L Chloride (98-107) mmol/L Carbon Dioxide (22-30) mmol/L BUN (9-20) mg/dL Creatinine (0.66-1.25) mg/dL Glucose (74-99) mg/dL POC Glucose (mg/dL) 172 H (75-99) mg/dL Calcium (8.4-10.2) mg/dL Procalcitonin (0.02-0.09) ng/mL ACTH (0.00-45.99) pg/mL Microbiology - Last 24 Hours (Table) 01/28/19 09:00 Blood Culture - Preliminary Blood No Growth after 24 hours Assessment and Plan Assessment: #1. Altered mental status, possibly related to sepsis, and metabolic encephalopathy #2. Bilateral pneumonia,aspiration pneumonia unless proven otherwise. Chest x- ray is already showing some improvement. #3.acute kidney injury related to ATN #4. New-onset A. fib with RVR, status post cardioversion 2, and patient is currently in sinus rhythm #5. Hypotension, possibly related to septic shock, improved with IV hydration #6. history of herpetic neuralgia on the left posterior lumbar dermatome, patient is on Acyclovir #7.history of CAD with previous stenting #8. History of lymphoma, status post stem cell transplant #9. History of histoplasmosis status post lung resection and chronic dyspnea #10. History of MRSA pneumonia #11. Non smoker #12. History of interstitial pulmonary fibrosis #13. Depression #[address] of the abdomen and pelvis raising the possibility of adrenal hemorrhage, hence we'll cover the patient with hydrocortisone, Florinef, patient is still presently on norepinephrine which I will likely discontinue once the blood pressure stabilizes. Patient will remain in the ICU for the time being while on norepinephrine. Recommendation: Continue to monitor in the ICU. Continue antibiotics for aspiration pneumonia Continue IV fluids Start the patient on hydrocortisone and Florinef. Once the patient is off norepinephrine Will transfer out of the ICU to a regular medical floor. We'll continue to follow. Time with Patient: Less than 30
[2019-01-29 14:29] LABS: Hemoglobin A1C 6.8 % (4.0-6.0)
--- NOTE | 2019-01-29 14:55 | P.PN ---
Subjective Patient is admitted without her mental status appears to have aspiration pneumonia when he lost consciousness. Patient is on broad-spectrum antibiotics at this time. Patient had an episode of atrial fibrillation patient was cardioverted and patient will need anti-correlation post cardioversion. Unfortunately patient CAT scan of the abdomen showed an adrenal hematoma I did well hemorrhage because of which neurology was consulted the recommending to hold off on IV heparin and aspirin is okay. Patient was hypotensive yesterday hypotension improved patient was febrile yesterday temperature improved patient is still on norepinephrine and started on stress dose steroids because of her septic shock. Patient's leukocytosis improved patient looks better today patient's creatinine improved. Constitutional: Denied any fatigue denied any fever. Cardio vascular: denied any chest pain, palpitations Gastrointestinal denied any nausea vomiting Pulmonary: Denied any shortness of breath cough Neurologic denied any new focal deficits All inpatient medications were reviewed and appropriate changes in these medications as dictated in the interval history and assessment and plan. Objective - Vital Signs Vital signs: Vital Signs Temp 98.1 F 01/29/19 12:00 Pulse 88 01/29/19 14:15 Resp 16 01/29/19 14:15 BP 80/62 01/29/19 14:15 Pulse Ox 94 L 01/29/19 14:15 Intake & Output 01/28/19 01/29/19 01/29/19 18:59 06:59 18:59 Intake Total 577.975 7274.661 1603.810 Output Total 1725 1145 490 Balance -885.004 206.259 2471.810 Weight 78.925 kg 80.8 kg Intake: IV 825 1450 800 Acyclovir Sodium 500 mg 100 In Sodium Chloride 0.9% 100 ml @ 110 mls/hr IVPB [facility] Rx#:[id number] Piperacillin-Tazobactam 3 100 .375 gm In Sodium Chloride 0.9% 100 ml @ 25 mls/hr IVPB Q8HR [facility] Rx# :[id number] Sodium Chloride 0.9% 1, 500 1200 700 000 ml @ 100 mls/hr IV . Q10H [facility] Rx#:[id number] Vancomycin 1,500 mg In 125 250 Sodium Chloride 0.9% 250 ml @ 125 mls/hr IVPB ONCE [facility] Rx#:[id number] cefTRIAXone 2 gm In 100 Sodium Chloride 0.9% 50 ml @ 100 mls/hr IVPB Q24HR [facility] Rx#:[id number] Intake, IV Titration 14.996 290.661 83.810 Amount Heparin Sod,Pork in 0.45% 14.996 NaCl 25,000 unit In 0.45 % NaCl 1 250ml.bag @ 12 UNITS/KG/HR 9.471 mls/hr IV .Q24H [facility] Rx#: [id number] Magnesium Sulfate-D5w Pmx 100 1 gm In Dextrose/Water 1 100ml.bag @ 100 mls/hr IVPB Q1H [facility] Rx#: [id number] Norepinephrine 4 mg In 90.661 59.388 Sodium Chloride 0.9% 250 ml @ 0.05 MCG/KG/MIN 15. 035 mls/hr IV .[id number] [facility] Rx#:[id number] Norepinephrine 4 mg In 24.422 Sodium Chloride 0.9% 250 ml @ 0.05 MCG/KG/MIN 15. 392 mls/hr IV .[id number] [facility] Rx#:[id number] Piperacillin-Tazobactam 3 100 .375 gm In Sodium Chloride 0.9% 100 ml @ 25 mls/hr IVPB Q8HR [facility] Rx# :[id number] Oral 720 Output: Urine 1725 1145 490 Other: Voiding Method Indwelling Catheter Indwelling Catheter Indwelling Catheter - Exam PHYSICAL EXAMINATION: GENERAL: The patient is alert and oriented x3, not in any acute distress. Well developed, well nourished. Patient appears to be fatigued HEENT: Pupils are round and equally reacting to light. EOMI. No scleral icterus. No conjunctival pallor. Normocephalic, atraumatic. No pharyngeal erythema. No thyromegaly. CARDIOVASCULAR: S1 and S2 present. No murmurs, rubs, or gallops. PULMONARY: Chest is clear to auscultation, no wheezing or crackles. ABDOMEN: Soft, nontender, nondistended, normoactive bowel sounds. No palpable organomegaly. MUSCULOSKELETAL: No joint swelling or deformity. EXTREMITIES: No cyanosis, clubbing, or pedal edema. NEUROLOGICAL: Gross neurological examination did not reveal any focal deficits. SKIN: No rashes. - Labs CBC & Chem 7: 01/29/19 12:45 01/29/19 05:02 Labs: Abnormal Lab Results - Last 24 Hours (Table) 01/28/19 01/28/19 01/28/19 Range/Units 08:16 16:24 18:51 WBC (3.8-10.6) k/uL RBC (4.30-5.90) m/uL Hgb (13.0-17.5) gm/dL Hct (39.0-53.0) % Neutrophils # (Manual) (1.3-7.7) k/uL Monocytes # (Manual) (0-1.0) k/uL Sodium 131 L (137-145) mmol/L Chloride (98-107) mmol/L Carbon Dioxide 21 L (22-30) mmol/L BUN 30 H (9-20) mg/dL Creatinine 1.47 H (0.66-1.25) mg/dL Glucose 216 H (74-99) mg/dL POC Glucose (mg/dL) 121 H (75-99) mg/dL Hemoglobin A1c (4.0-6.0) % Calcium 8.0 L (8.4-10.2) mg/dL Procalcitonin 2.08 H (0.02-0.09) ng/mL ACTH (0.00-45.99) pg/mL 01/28/19 01/28/19 01/28/19 Range/Units 18:51 18:51 20:40 WBC 19.4 H (3.8-10.6) k/uL RBC 4.13 L (4.30-5.90) m/uL Hgb 12.5 L (13.0-17.5) gm/dL Hct (39.0-53.0) % Neutrophils # (Manual) 17.80 H (1.3-7.7) k/uL Monocytes # (Manual) (0-1.0) k/uL Sodium (137-145) mmol/L Chloride (98-107) mmol/L Carbon Dioxide (22-30) mmol/L BUN (9-20) mg/dL Creatinine (0.66-1.25) mg/dL Glucose (74-99) mg/dL POC Glucose (mg/dL) 250 H (75-99) mg/dL Hemoglobin A1c (4.0-6.0) % Calcium (8.4-10.2) mg/dL Procalcitonin (0.02-0.09) ng/mL ACTH 91.30 H (0.00-45.99) pg/mL 01/29/19 01/29/19 01/29/19 Range/Units 04:55 05:02 05:02 WBC 16.9 H (3.8-10.6) k/uL RBC 3.74 L (4.30-5.90) m/uL Hgb 11.2 L (13.0-17.5) gm/dL Hct 34.3 L (39.0-53.0) % Neutrophils # (Manual) 13.01 H (1.3-7.7) k/uL Monocytes # (Manual) 1.52 H (0-1.0) k/uL Sodium 136 L (137-145) mmol/L Chloride 108 H (98-107) mmol/L Carbon Dioxide 19 L (22-30) mmol/L BUN 23 H (9-20) mg/dL Creatinine (0.66-1.25) mg/dL Glucose 127 H (74-99) mg/dL POC Glucose (mg/dL) (75-99) mg/dL Hemoglobin A1c 6.8 H (4.0-6.0) % Calcium 7.9 L (8.4-10.2) mg/dL Procalcitonin (0.02-0.09) ng/mL ACTH (0.00-45.99) pg/mL 01/29/19 01/29/19 01/29/19 Range/Units 06:53 11:50 12:45 WBC (3.8-10.6) k/uL RBC 3.65 L (4.30-5.90) m/uL Hgb 10.8 L (13.0-17.5) gm/dL Hct 33.3 L (39.0-53.0) % Neutrophils # (Manual) (1.3-7.7) k/uL Monocytes # (Manual) (0-1.0) k/uL Sodium (137-145) mmol/L Chloride (98-107) mmol/L Carbon Dioxide (22-30) mmol/L BUN (9-20) mg/dL Creatinine (0.66-1.25) mg/dL Glucose (74-99) mg/dL POC Glucose (mg/dL) 149 H 172 H (75-99) mg/dL Hemoglobin A1c (4.0-6.0) % Calcium (8.4-10.2) mg/dL Procalcitonin (0.02-0.09) ng/mL ACTH (0.00-45.99) pg/mL Microbiology - Last 24 Hours (Table) 01/28/19 09:00 Blood Culture - Preliminary Blood No Growth after 24 hours Assessment and Plan Plan: -Septic shock: Patient is presently on norepinephrine possible source of shock is possibly secondary to aspiration pneumonia, cultures are pending patient is an nor epinephrine IV fluids and stress doses of steroids. Patient is presently on vancomycin and Zosyn which will be continued, taper the therapy depending on the cultures. -New-onset A. fib with rapid ventricular rate patient her proximal A. fib precipitated by sepsis will obtain echocardiogram , patient has normal ejection fraction. Patient is not on anti-correlation in spite of cardioversion after which she converted to sinus rhythm because patient has probable adrenal hemorrhage. urology evaluated the patient for adrenal hemorrhage -Adrenal hemorrhage neurology evaluated the patient, it adrenal hemorrhage may be responsible for his hypotension serum cortisol level is being obtained although patient is already on fludrocortisone -Possible acute renal failure secondary to acute tubular necrosis and prerenal azotemia from sepsis improving with IV fluids -Coronary artery disease next and-type 2 diabetes mellitus patient metformin will be held because of sepsis and acute renal failure and the rest of his home regimen was resumed along with sliding scale insulin -Hypertension patient is presently hypotensive and septic. -History of lymphoma in the past which is in remission. -History of histoplasmosis in the past and had C. diff colitis to in the past -Toxic encephalopathy secondary to sepsis which improved now
[2019-01-29 17:00] LABS: Glucose,Whole Blood 222 mg/dL (75-99)
--- NOTE | 2019-01-29 18:19 | P.CRDCN ---
History of Present Illness Consult date: 01/29/19 History of present illness: This is a 73-year-old gentleman with history of coronary artery disease with previous stent placement, diabetes mellitus, hypertension, lymphoma currently in remission and also history of histoplasmosis requiring lung resection who was brought to the emergency room. Evaluation of her mental status changes. Apparently patient was found to be unresponsive by his . There is history that patient has vomited and aspirated. Patient was brought to the hospital by ambulance and patient was found to be hypotensive and also [place] fibrillation with rapid ventricular response. Because of hemodynamic instability, patient had a cardioversion done in the emergency room. Patient was started on anticoagulation and also started on empiric antibiotic therapy. Patient had a computed tomography scan of the abdomen which showed possible hemorrhage into the adrenal gland area. Because of possible hemorrhage, urology consult was obtained who felt that most probably patient did have hemorrhage into the suprarenal gland. The advised that patient be a heparin and be on aspirin. His echo [place] showed normal LV function.. Chest x-ray showed left basilar and right upper lobe Opacities. His white count was 16.7 thousand. His creatinine was 1.75 and a pro BNP was 1120. Patient is started on IV antibiotics. Patient is also on epinephrine drip for blood pressure support. Overall patient seemed to be little better today compared to yesterday. We'll continue to monitor his supra renal hemorrhagic situation. Patient may be a candidate for long-term anticoagulation and cleared by urology Review of Systems As per the chart Past Medical History Past Medical History: Coronary Artery Disease (CAD), Cancer, Diabetes Mellitus, Hypertension, Pneumonia Additional Past Medical History / Comment(s): lymphoma 4 times-yrs since chemo and radiation. Has a history of histoplasmosis which required the lung resection -HAS SOME SOB. hernia Last Myocardial Infarction Date:: unknown History of Any Multi-Drug Resistant Organisms: MRSA Date of last positivie culture/infection: 05/09/18 MDRO Source:: MRSA SPUTUM Past Surgical History: Cholecystectomy, Heart Catheterization With Stent, Hernia Repair Additional Past Surgical History / Comment(s): stem cell transplant/ LUNG RESECTION. 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 Past Anesthesia/Blood Transfusion Reactions: No Reported Reaction Additional Past Anesthesia/Blood Transfusion Reaction / Comment(s): no hx blood transfusion Date of Last Stent Placement:: 01-10-2013 Past Psychological History: No Psychological Hx Reported, Depression Smoking Status: Never smoker Past Alcohol Use History: None Reported Past Drug Use History: None Reported - Past Family History Mother Family Medical History: No Reported History Additional Family Medical History / Comment(s): Mother from a strangulated hernia at the age of 68yrs Father Additional Family Medical History / Comment(s): Father of a "ruptured" heart at the age of 72 yrs. Medications and Allergies Home Medications Medication Instructions Recorded Confirmed Type Furosemide [Lasix] 20 mg PO DAILY 08/25/16 01/28/19 History Aspirin [Adult Low Dose Aspirin EC] 81 mg PO DAILY 10/27/16 01/28/19 History Multivit-Min/FA/Lycopen/Lutein 1 tab PO DAILY 07/26/17 01/28/19 History [Centrum Silver Men Tablet] metFORMIN HCL [Glucophage] 500 mg PO AC-BID 07/26/17 01/28/19 History Metoprolol Tartrate [Lopressor] 12.5 mg PO BID 09/15/17 01/28/19 History Atorvastatin [Lipitor] 40 mg PO DAILY 04/30/18 01/28/19 History Glimepiride [Amaryl] 4 mg PO DAILY 04/30/18 01/28/19 History Insulin Glargine,Hum.rec.anlog 24 units SQ HS 04/30/18 01/28/19 History [Toujeo Solostar] Ipratropium-Albuterol Nebulize 3 ml INHALATION RT-Q6H PRN 05/08/18 01/28/19 History [Duoneb 0.5 mg-3 mg/3 ml Soln] Potassium Chloride ER [K-Dur 10] 10 meq PO DAILY 05/08/18 01/28/19 History Acetaminophen-Codeine 300-30mg 1 - 2 tab PO Q4HR PRN 01/28/19 01/28/19 History [Tylenol w/codeine #3] Amoxicillin/Potassium Clav 1 tab PO Q12HR 01/28/19 01/28/19 History [Augmentin 875-125 Tablet] Montelukast Sodium [Singulair] 10 mg PO HS 01/28/19 01/28/19 History Pregabalin [Lyrica] 75 mg PO TID 01/28/19 01/28/19 History Allergies Allergy/AdvReac Type Severity Reaction Status Date / Time No Known Allergies Allergy Verified 01/28/19 11:11 Physical Exam Vitals: Vital Signs Temp Pulse Resp BP Pulse Ox 01/29/19 17:00 102 H 17 98/64 95 01/29/19 16:30 93 20 98/62 96 01/29/19 16:00 99.4 F 96 12 89/55 95 01/29/19 15:30 96 30 H 90/55 96 01/29/19 15:15 97 18 105/64 95 01/29/19 15:00 96 20 101/61 95 01/29/19 14:45 94 22 85/63 94 L 01/29/19 14:30 95 20 92/52 93 L 01/29/19 14:15 88 16 80/62 94 L 01/29/19 14:00 90 23 97/59 95 01/29/19 13:45 89 16 104/60 97 01/29/19 13:30 90 20 91/56 96 01/29/19 13:15 91 24 89/56 97 01/29/19 13:00 91 14 86/55 96 01/29/19 12:45 95 26 H 98/61 96 01/29/19 12:30 89 27 H 99/64 97 01/29/19 12:15 92 20 110/80 81 L 01/29/19 12:00 98.1 F 87 16 93/64 95 01/29/19 11:45 84 20 100/63 96 01/29/19 11:30 82 20 98/62 94 L 01/29/19 11:15 85 11 L 97/64 93 L 01/29/19 11:00 84 21 97/64 92 L 01/29/19 10:45 84 12 94/58 93 L 01/29/19 10:30 84 12 83/54 93 L 01/29/19 10:00 84 16 93/60 93 L 01/29/19 09:30 90 20 92/58 94 L 01/29/19 09:00 93 17 95/61 90 L 01/29/19 08:50 83 01/29/19 08:40 81 01/29/19 08:30 81 19 94/52 95 01/29/19 08:00 98.1 F 88 14 94/59 95 01/29/19 07:30 79 14 106/70 95 01/29/19 07:00 79 19 100/62 95 01/29/19 06:30 79 16 97/58 94 L 01/29/19 06:00 78 20 97/55 95 01/29/19 05:30 79 21 100/61 93 L 01/29/19 05:00 82 14 106/69 94 L 01/29/19 04:45 84 9 L 111/62 93 L 01/29/19 04:30 80 17 109/65 95 01/29/19 04:15 80 19 88/56 93 L 01/29/19 04:00 98.3 F 78 13 89/53 94 L 01/29/19 03:45 79 15 106/63 94 L 01/29/19 03:30 85 13 99/61 94 L 01/29/19 03:15 80 15 103/59 95 01/29/19 03:00 78 17 92/58 94 L 01/29/19 02:45 80 16 92/56 94 L 01/29/19 02:30 80 14 94/59 94 L 01/29/19 02:15 83 16 100/58 96 01/29/19 02:00 85 17 105/62 95 01/29/19 01:45 84 26 H 107/65 95 01/29/19 01:30 84 12 94/56 93 L 01/29/19 01:15 82 18 90/53 93 L 01/29/19 01:00 79 15 92/55 93 L 01/29/19 00:45 80 14 91/50 93 L 01/29/19 00:30 78 15 81/53 93 L 01/29/19 00:15 80 15 93/58 93 L 01/29/19 00:00 98.2 F 84 17 95/60 94 L 01/28/19 23:45 84 17 83/53 93 L 01/28/19 23:30 82 15 92/55 94 L 01/28/19 23:15 81 15 83/52 93 L 01/28/19 23:00 83 16 80/55 94 L 01/28/19 22:45 86 15 104/63 94 L 01/28/19 22:30 86 15 88/61 94 L 01/28/19 22:15 86 20 87/54 95 01/28/19 22:00 85 16 94/62 94 L 01/28/19 21:45 86 10 L 93/58 93 L 01/28/19 21:30 87 20 97/63 91 L 01/28/19 21:15 90 12 81/54 93 L 01/28/19 21:00 89 16 91/59 01/28/19 20:45 89 22 85/51 95 01/28/19 20:30 90 27 H 84/55 94 L 01/28/19 20:15 91 24 99/74 95 01/28/19 20:00 98.5 F 24 118/74 94 L 01/28/19 19:45 112 H 12 117/68 94 L 01/28/19 19:30 106 H 16 96/66 93 L 01/28/19 19:15 23 85/57 94 L 01/28/19 19:01 93 27 H 94 L 01/28/19 19:00 16 84/52 95 01/28/19 18:45 90 28 H 86/62 94 L 01/28/19 18:30 90 16 82/51 93 L 01/28/19 18:15 89 19 83/50 95 Intake and Output 01/29/19 01/29/19 01/29/19 06:59 14:59 22:59 Intake Total 7143.250 5416.810 590 Output Total 735 490 375 Balance 682.726 0155.810 215 Intake: IV 1150 800 350 Piperacillin-Tazobactam 3 100 50 .375 gm In Sodium Chloride 0.9% 100 ml @ 25 mls/hr IVPB Q8HR [facility] Rx# :[id number] Sodium Chloride 0.9% 1, 900 700 300 000 ml @ 100 mls/hr IV . Q10H [facility] Rx#:[id number] Vancomycin 1,500 mg In 250 Sodium Chloride 0.9% 250 ml @ 125 mls/hr IVPB ONCE [facility] Rx#:[id number] Intake, IV Titration 285.649 83.810 Amount Magnesium Sulfate-D5w Pmx 100 1 gm In Dextrose/Water 1 100ml.bag @ 100 mls/hr IVPB Q1H [facility] Rx#: [id number] Norepinephrine 4 mg In 85.649 59.388 Sodium Chloride 0.9% 250 ml @ 0.05 MCG/KG/MIN 15. 035 mls/hr IV .[id number] [facility] Rx#:[id number] Norepinephrine 4 mg In 24.422 Sodium Chloride 0.9% 250 ml @ 0.05 MCG/KG/MIN 15. 392 mls/hr IV .[id number] [facility] Rx#:[id number] Piperacillin-Tazobactam 3 100 .375 gm In Sodium Chloride 0.9% 100 ml @ 25 mls/hr IVPB Q8HR [facility] Rx# :[id number] Oral 720 240 Output: Urine 735 490 375 Other: Voiding Method Indwelling Catheter Indwelling Catheter Indwelling Catheter Weight 80.8 kg GENERAL EXAM: Patient is alert and oriented and doesn't appear to be in any a cute distress HEENT: Normocephalic. Normal reaction of pupils, equal size, normal range of extraocular motion. No erythema or exudates in the throat. NECK: No masses, no nuchal rigidity. CHEST: No chest wall deformity. LUNGS: Diminished breath sounds with scattered rales and some rhonchi HEART: S1 and S2 normal with no audible mumurs or gallops. Regular rhythm, femorals equal on both sides.. ABDOMEN: No hepatosplenomegaly, normal bowel sounds, no guarding or rigidity. SKIN: No rashes CENTRAL NERVOUS SYSTEM: No focal deficits. EXTREMITIES: No cyanosis, clubbing or edema. Results 01/29/19 12:45 01/29/19 05:02 CBC 01/28/19 01/29/19 01/29/19 Range/Units 18:51 05:02 12:45 WBC 19.4 H 16.9 H 9.9 (3.8-10.6) k/uL RBC 4.13 L 3.74 L 3.65 L (4.30-5.90) m/uL Hgb 12.5 L 11.2 L 10.8 L (13.0-17.5) gm/dL Hct 39.3 34.3 L 33.3 L (39.0-53.0) % Plt Count 280 309 249 (150-450) k/uL Comprehensive Metabolic Panel 01/28/19 01/29/19 Range/Units 18:51 05:02 Sodium 131 L 136 L (137-145) mmol/L Potassium 5.0 4.1 (3.5-5.1) mmol/L Chloride 103 108 H (98-107) mmol/L Carbon Dioxide 21 L 19 L (22-30) mmol/L BUN 30 H 23 H (9-20) mg/dL Creatinine 1.47 H 1.15 (0.66-1.25) mg/dL Glucose 216 H 127 H (74-99) mg/dL Calcium 8.0 L 7.9 L (8.4-10.2) mg/dL Current Medications Generic Name Dose Route Start Last Admin Trade Name Freq PRN Reason Stop Dose Admin Acetaminophen 650 mg 01/28/19 11:02 Tylenol Tab PO Q4HR PRN Fever and/or Mild Pain Acetaminophen/Codeine Phosphate 1 each 01/28/19 14:11 Tylenol #3 PO Q4HR PRN Pain Acyclovir 400 mg 01/28/19 21:00 01/29/19 08:16 Zovirax PO 400 mg BID [facility] Administration Albuterol/Ipratropium 3 ml 01/28/19 14:11 01/29/19 08:40 Duoneb 0.5 Mg-3 Mg/3 Ml Soln INHALATION 3 ml RT-Q6H PRN Administration Shortness Of Breath Aspirin 81 mg 01/29/19 09:00 01/29/19 08:58 Aspirin PO 81 mg DAILY [facility] Administration Atorvastatin Calcium 40 mg 01/29/19 09:00 01/29/19 08:17 Lipitor PO 40 mg DAILY [facility] Administration Famotidine 20 mg 01/28/19 21:00 01/29/19 08:17 Pepcid PO 20 mg BID [facility] Administration Fentanyl Citrate 50 mcg 01/28/19 10:28 Sublimaze IVP Q4H PRN Severe Pain Fludrocortisone Acetate 0.1 mg 01/29/19 11:30 01/29/19 13:02 Florinef PO 0.1 mg DAILY [facility] Administration Hydrocortisone Sodium Succinate 100 mg 01/29/19 22:00 Solu-Cortef IV Q8H [facility] Sodium Chloride 1,000 mls @ 100 mls/hr 01/28/19 11:15 01/29/19 15:51 Saline 0.9% IV 100 mls/hr .Q10H [facility] Administration Vancomycin HCl 1,500 mg/ 250 mls @ 125 mls/hr 01/29/19 04:00 01/29/19 04:38 Sodium Chloride IVPB 125 mls/hr Q16H [facility] Administration Piperacillin Sod/Tazobactam 100 mls @ 25 mls/hr 01/28/19 16:00 01/29/19 15:50 Sod 3.375 gm/ Sodium Chloride IVPB 25 mls/hr Q8HR [facility] Administration Norepinephrine Bitartrate 4 mg 254 mls @ 15.392 mls/hr 01/29/19 09:00 01/29/19 12:45 / Sodium Chloride IV 0 mcg/kg/min .[id number] [facility] 0 mls/hr Titration Protocol 0.05 MCG/KG/MIN Insulin Aspart 0 unit 01/28/19 17:30 01/29/19 17:07 Novolog SQ 3 unit ACHS [facility] Administration Protocol Insulin Detemir 24 unit 01/28/19 21:00 01/28/19 21:12 Levemir SQ 24 unit HS [facility] Administration Metoprolol Tartrate 12.5 mg 01/28/19 21:00 01/29/19 08:57 Lopressor PO Not Given BID [facility] Naloxone HCl 0.2 mg 01/28/19 11:02 Narcan IV Q2M PRN Opioid Reversal Pregabalin 75 mg 01/28/19 16:00 01/29/19 15:50 Lyrica PO 75 mg TID [facility] Administration Intake and Output 01/29/19 01/29/19 01/29/19 06:59 14:59 22:59 Intake Total 8335.781 4672.810 590 Output Total 735 490 375 Balance 936.670 8417.810 215 Intake: IV 1150 800 350 Piperacillin-Tazobactam 3 100 50 .375 gm In Sodium Chloride 0.9% 100 ml @ 25 mls/hr IVPB Q8HR [facility] Rx# :[id number] Sodium Chloride 0.9% 1, 900 700 300 000 ml @ 100 mls/hr IV . Q10H [facility] Rx#:[id number] Vancomycin 1,500 mg In 250 Sodium Chloride 0.9% 250 ml @ 125 mls/hr IVPB ONCE [facility] Rx#:[id number] Intake, IV Titration 285.649 83.810 Amount Magnesium Sulfate-D5w Pmx 100 1 gm In Dextrose/Water 1 100ml.bag @ 100 mls/hr IVPB Q1H [facility] Rx#: [id number] Norepinephrine 4 mg In 85.649 59.388 Sodium Chloride 0.9% 250 ml @ 0.05 MCG/KG/MIN 15. 035 mls/hr IV .[id number] [facility] Rx#:[id number] Norepinephrine 4 mg In 24.422 Sodium Chloride 0.9% 250 ml @ 0.05 MCG/KG/MIN 15. 392 mls/hr IV .[id number] [facility] Rx#:[id number] Piperacillin-Tazobactam 3 100 .375 gm In Sodium Chloride 0.9% 100 ml @ 25 mls/hr IVPB Q8HR [facility] Rx# :[id number] Oral 720 240 Output: Urine 735 490 375 Other: Voiding Method Indwelling Catheter Indwelling Catheter Indwelling Catheter Weight 80.8 kg 01/29/19 12:45 01/29/19 05:02 EKG Interpretations (text) Atrial fibrillation with a rapid ventricular response. Postconversion EKG showed with poor R wave progression anterior leads and possible old inferior wall LA Assessment and Plan (1) Atrial fibrillation with RVR Current Visit: Yes Status: Acute Code(s): I48.91 - UNSPECIFIED ATRIAL FIBRILLATION SNOMED Code(s): 060145824567245 (2) Acute exacerbation of chronic obstructive pulmonary disease (COPD) Current Visit: No Status: Acute Code(s): J44.1 - CHRONIC OBSTRUCTIVE PULMONARY DISEASE W (ACUTE) EXACERBATION SNOMED Code(s): 076300577 (3) Adrenal hemorrhage Current Visit: Yes Status: Acute Code(s): E27.49 - OTHER ADRENOCORTICAL INSUFFICIENCY SNOMED Code(s): 85407439 Plan: Continue current medical therapy including pressors supporters and also antibiotics. Hold off anticoagulation therapy, as per urology. When cleared by urology, patient may become a candidate for long-term anticoagulation
[2019-01-29] MEDS: Acetaminophen-Codeine 300-30mg TAB PO PRN (20:54)
[2019-01-29 21:01] LABS: Glucose,Whole Blood 267 mg/dL (75-99)
[2019-01-29] MEDS: INSULIN DETEMIR (LEVEMIR) 100 UNIT/ML SYR SQ SCH (21:09)
[2019-01-29] MEDS: HYDROCORTISONE SUCCINATE 100 MG/2 ML VIAL IV SCH (23:07)
[2019-01-30] MEDS: PIPERACILLIN-TAZOBACTAM 3.375 GM in SODIUM CHLORIDE 0.9% 100 ML IVPB SCH ×3 (01:56→15:37)
[2019-01-30] MEDS: SODIUM CHLORIDE 0.9% 1,000 ML IV SCH ×2 (03:16→13:20)
[2019-01-30 05:19] LABS: HCT 31.2 % (39.0-53.0); HGB 10.6 gm/dL (13.0-17.5); MCV 91.1 fL (80.0-100.0); Mean Platelet Volume 7.8; Platelet Count 256 k/uL (150-450); RBC 3.43 m/uL (4.30-5.90); RDW 13.6 % (11.5-15.5)
[2019-01-30 05:31] LABS: African American GFR (CKD) >90 (>60 ml/min/1.73 sqM); Anion Gap 5 mmol/L; Blood Urea Nitrogen 14 mg/dL (9-20); Calcium 7.7 mg/dL (8.4-10.2); Carbon Dioxide 19 mmol/L (22-30); Chloride 115 mmol/L (98-107); Glucose 155 mg/dL (74-99); Magnesium 2.2 mg/dL (1.6-2.3); Non-African American GFR(CKD) 80 (>60 ml/min/1.73 sqM); Potassium 3.8 mmol/L (3.5-5.1); Sodium 139 mmol/L (137-145)
[2019-01-30 06:02] LABS: Band Neutrophils % 1 %; Monocytes # (M) 0.18 k/uL (0-1.0); Neutrophils % (M) 87 %; Nucleated Red Blood Cells 0 /100 WBC (0-0); Total Cells Counted 100
[2019-01-30 06:04] LABS: Large Platelets Present
[2019-01-30 06:07] LABS: Anisocytosis (M) Present
[2019-01-30 06:08] LABS: Poikilocytosis (M) Present; Polychromasia Present
[2019-01-30 06:37] LABS: Glucose,Whole Blood 127 mg/dL (75-99)
[2019-01-30] MEDS: HYDROCORTISONE SUCCINATE 100 MG/2 ML VIAL IV SCH ×3 (06:40→20:51)
[2019-01-30] MEDS: Acetaminophen-Codeine 300-30mg TAB PO PRN ×2 (06:40→13:27)
[2019-01-30] MEDS: NOREPINEPHRINE 4 MG in SODIUM CHLORIDE 0.9% 250 ML IV SCH (08:25)
[2019-01-30] MEDS: INSULIN ASPART (NovoLOG) 100 UNIT/ML VIAL SQ SCH ×4 (08:26→20:49)
[2019-01-30] MEDS: ACYCLOVIR 200 MG CAP PO SCH ×2 (09:13→20:50)
[2019-01-30] MEDS: ATORVASTATIN 40 MG TAB PO SCH (09:15)
[2019-01-30] MEDS: METOPROLOL TARTRATE 12.5 MG TAB PO SCH ×2 (09:15→20:51)
[2019-01-30] MEDS: ASPIRIN 81 MG PO SCH (09:15)
[2019-01-30] MEDS: PREGABALIN 75 MG CAP PO SCH ×3 (09:15→20:51)
[2019-01-30] MEDS: FAMOTIDINE 20 MG TAB PO SCH ×2 (09:15→20:50)
[2019-01-30] MEDS: FLUDROCORTISONE 0.1 MG TAB PO SCH (09:16)
--- NOTE | 2019-01-30 09:34 | P.PN ---
Subjective Progress Note Date: 01/30/19 This is a 73-year-old gentleman who was admitted to the hospital with altered mental status and hypotension. Patient also had atrial fibrillation was cardioverted in the emergency room because of hypotension. Patient has been on pressors for blood pressure support. His echocardiogram showed normal LV fu nction with mild aortic stenosis. Patient is maintaining sinus rhythm. Currently is on metoprolol 12.5 mg by mouth twice a day. Patient is also receiving hydrocortisone succinate injections. His blood pressure is about 100/60. Heart rate is controlled. Patient denies any chest pain or shortness of breath. He is also being treated for possible aspiration with antibiotics. Chest x-ray from yesterday showed densities in the right upper lobe with some improvement. Objective - Vital Signs Vital signs: Vital Signs Temp 98.7 F 01/30/19 04:00 Pulse 79 01/30/19 08:00 Resp 21 01/30/19 08:00 BP 114/70 01/30/19 08:00 Pulse Ox 94 L 01/30/19 08:00 Intake & Output 01/29/19 01/30/19 01/30/19 18:59 06:59 18:59 Intake Total 2558.810 925 800 Output Total 8475 648 9809 Balance 1543.810 425 -200 Weight 85.5 kg Intake: IV 1275 925 800 Piperacillin-Tazobactam 3 175 25 .375 gm In Sodium Chloride 0.9% 100 ml @ 25 mls/hr IVPB Q8HR [facility] Rx# :[id number] Sodium Chloride 0.9% 1, 1100 900 800 000 ml @ 100 mls/hr IV . Q10H [facility] Rx#:[id number] Intake, IV Titration 83.810 Amount Norepinephrine 4 mg In 59.388 Sodium Chloride 0.9% 250 ml @ 0.05 MCG/KG/MIN 15. 035 mls/hr IV .[id number] [facility] Rx#:[id number] Norepinephrine 4 mg In 24.422 Sodium Chloride 0.9% 250 ml @ 0.05 MCG/KG/MIN 15. 392 mls/hr IV .[id number] [facility] Rx#:[id number] Oral 1200 Output: Urine 3884 207 [id number] Other: Voiding Method Indwelling Catheter Indwelling Catheter - Exam GENERAL EXAM: Patient is alert and oriented and doesn't appear to be in any acute distress HEENT: Normocephalic. Normal reaction of pupils, equal size, normal range of extraocular motion. No erythema or exudates in the throat. NECK: No masses, no nuchal rigidity. CHEST: No chest wall deformity. LUNGS: Equal air entry with no crackles or wheeze. HEART: S1 and S2 normal with no audible mumurs or gallops. Regular rhythm, femorals equal on both sides.. ABDOMEN: No hepatosplenomegaly, normal bowel sounds, no guarding or rigidity. SKIN: No rashes CENTRAL NERVOUS SYSTEM: No focal deficits. EXTREMITIES: No cyanosis, clubbing or edema. - Labs CBC & Chem 7: 01/30/19 04:36 01/30/19 04:36 Labs: Abnormal Lab Results - Last 24 Hours (Table) 01/29/19 01/29/19 01/29/19 Range/Units 04:55 11:50 12:45 RBC (4.30-5.90) m/uL Hgb (13.0-17.5) gm/dL Hct (39.0-53.0) % Neutrophils # (Manual) (1.3-7.7) k/uL Lymphocytes # (Manual) (1.0-4.8) k/uL Chloride (98-107) mmol/L Carbon Dioxide (22-30) mmol/L Glucose (74-99) mg/dL POC Glucose (mg/dL) 172 H (75-99) mg/dL Hemoglobin A1c 6.8 H (4.0-6.0) % Calcium (8.4-10.2) mg/dL ACTH 247.00 H (0.00-45.99) pg/mL 01/29/19 01/29/19 01/29/19 Range/Units 12:45 16:58 21:00 RBC 3.65 L (4.30-5.90) m/uL Hgb 10.8 L (13.0-17.5) gm/dL Hct 33.3 L (39.0-53.0) % Neutrophils # (Manual) (1.3-7.7) k/uL Lymphocytes # (Manual) (1.0-4.8) k/uL Chloride (98-107) mmol/L Carbon Dioxide (22-30) mmol/L Glucose (74-99) mg/dL POC Glucose (mg/dL) 222 H 267 H (75-99) mg/dL Hemoglobin A1c (4.0-6.0) % Calcium (8.4-10.2) mg/dL ACTH (0.00-45.99) pg/mL 01/30/19 01/30/19 01/30/19 Range/Units 04:36 04:36 06:35 RBC 3.43 L (4.30-5.90) m/uL Hgb 10.6 L (13.0-17.5) gm/dL Hct 31.2 L (39.0-53.0) % Neutrophils # (Manual) 7.90 H (1.3-7.7) k/uL Lymphocytes # (Manual) 0.90 L (1.0-4.8) k/uL Chloride 115 H (98-107) mmol/L Carbon Dioxide 19 L (22-30) mmol/L Glucose 155 H (74-99) mg/dL POC Glucose (mg/dL) 127 H (75-99) mg/dL Hemoglobin A1c (4.0-6.0) % Calcium 7.7 L (8.4-10.2) mg/dL ACTH (0.00-45.99) pg/mL Microbiology - Last 24 Hours (Table) 01/29/19 08:35 Gram Stain - Preliminary Sputum 01/28/19 15:20 Blood Culture - Preliminary Blood No Growth after 24 hours 01/28/19 09:00 Blood Culture - Preliminary Blood No Growth after 24 hours Assessment and Plan (1) Atrial fibrillation with RVR Current Visit: Yes Status: Acute Code(s): I48.91 - UNSPECIFIED ATRIAL FIBRILLATION SNOMED Code(s): 362451234718670 (2) Acute exacerbation of chronic obstructive pulmonary disease (COPD) Current Visit: No Status: Acute Code(s): J44.1 - CHRONIC OBSTRUCTIVE PULMONARY DISEASE W (ACUTE) EXACERBATION SNOMED Code(s): 713905022 (3) Adrenal hemorrhage Current Visit: Yes Status: Acute Code(s): E27.49 - OTHER ADRENOCORTICAL INSUFFICIENCY SNOMED Code(s): 47006824 Plan: Continue current medical therapy. Urology is planning to do a follow-up computed tomography scan tomorrow. If that shows stable findings, we will start patient on anticoagulation therapy
--- NOTE | 2019-01-30 10:37 | P.PN ---
Subjective Progress Note Date: 01/30/19 Principal diagnosis: bilateral pneumonia, likely aspiration pneumonia, altered mental status, metabolic encephalopathy. this is 73-year-old white male patient of Dr. Josie Tapia a history of coronary artery disease with previous stenting, diabetes mellitus, hypertension, previous episodes of pneumonia, lymphoma currently in remission, history of histoplasmosis requiring lung resection, previous history of MRSA pneumonia, was brought into the emergency department on 01/28/2019 per EMS for evaluation of acute mental status changes, patient was found by his this morning. He will unresponsive, he had vomited, and possibly aspirated. Patient was last seen well last night, apparently yesterday patient was feeling well, she was actually out with his grandson, did not have any specific complaints. patient was hypotensive in an ambulance, and fluid bolus was started, he was found to be in new onset A. fib RVR, his systolic was in the 50s, and because of hemodynamic instability patient was cardioverted in the emergency department. He was cardioverted twice and he is now in sinus mechanism, he has been started on heparin infusion for anticoagulation, and he was started on empiric antibiotics initially with Rocephin and vancomycin, and she was given a dose of IV Acyclovir. Apparently last week patient also had herpetic pain along his dermatome on his right lower back there is no visible rash but patient has been taking oral acyclovir, especially in view of his history of bone marrow transplant. patient did receive a total of 3 l and fluid boluses,currently has blood pressure is 90/74 with a mean of 79, he is in sinus mechanism with a rate of 90 BPM, she was febrile on presentation with simple 102.4F, his mentation has improved, patient is awake and alert, and he seems to be back to his baseline, he is conversant, and giving history to providers.brain CT showed age- related atrophic and chronic small vessel ischemic changes without acute intracranial process. chest x-ray showed left basilar and right upper lobe opacities, trace effusions.labs revealed white blood cell count of 16.7, hemoglobin of 14.2, remission profile was within normal limits, sodium is 132, potassium is 4.8, chloride is 98, CO2 is 21, B1 is 36 creatinine 1.75, LFTs are within normal limits, proBNP was 1120, urinalysis was negative for signs of infection, influenza screen was negative. He was placed in the intensive care unit for close hemodynamic monitoring, and we're consulted for critical care management Reevaluated today on 01/29/2019, patient remains in the intensive care unit, still on norepinephrine at 0.02 mcg/kg/m. Patient is feeling better, breathing easier, chest x-ray continues to show bilateral infiltrates consistent with possible aspiration pneumonia. His CT of the abdomen and pelvis questioned adrenal hematoma/hemorrhage, hence I will go ahead and recommend hydrocortisone in stress doses for this patient since blood pressure remains marginal, and I will start the patient on Florinef. In the meantime medically the patient is feeling better, remains on antibiotics, chest x-ray is showing improvement compared to the admission chest x-ray. Hence I believe the findings on the chest x-ray yesterday were mostly related to aspiration. Unless proven otherwise.CBC is relatively normal left lites are normal BUN is 23 creatinine 1.15. Patient was reevaluated today on 01/30/2019, remains in the intensive care unit, presently off norepinephrine, seems to be hemodynamically stable, patient is feeling better, breathing a lot easier, presently in normal sinus rhythm, blood pressure is 100/60. Heart rate seems to be well-controlled and in sinus rhythm. Patient remains on antibiotics for presumptive pneumonia, possibly aspiration, remains on hydrocortisone for presumptive adrenal insufficiency since his CT of the abdomen and pelvis showed Amilcar hemorrhage. Patient denies any cough, no wheezing, no fever, no chills, no hemoptysis, no chest pain. His last follow-up chest x-ray showed slight improvement, no chest x-ray was done today, but will go ahead and order one for tomorrow. WBC count is 9 hemoglobin is 10.6 and a close are normal renal profile is normal. Objective - Vital Signs Vital signs: Vital Signs Temp 98.7 F 01/30/19 04:00 Pulse 79 01/30/19 08:00 Resp 21 01/30/19 08:00 BP 114/70 01/30/19 08:00 Pulse Ox 94 L 01/30/19 08:00 Intake & Output 01/29/19 01/30/19 01/30/19 18:59 06:59 18:59 Intake Total 2558.810 925 800 Output Total 7813 065 1265 Balance 1543.810 425 -200 Weight 85.5 kg Intake: IV 1275 925 800 Piperacillin-Tazobactam 3 175 25 .375 gm In Sodium Chloride 0.9% 100 ml @ 25 mls/hr IVPB Q8HR [facility] Rx# :[id number] Sodium Chloride 0.9% 1, 1100 900 800 000 ml @ 100 mls/hr IV . Q10H [facility] Rx#:[id number] Intake, IV Titration 83.810 Amount Norepinephrine 4 mg In 59.388 Sodium Chloride 0.9% 250 ml @ 0.05 MCG/KG/MIN 15. 035 mls/hr IV .[id number] [facility] Rx#:[id number] Norepinephrine 4 mg In 24.422 Sodium Chloride 0.9% 250 ml @ 0.05 MCG/KG/MIN 15. 392 mls/hr IV .[id number] [facility] Rx#:[id number] Oral 1200 Output: Urine 8667 301 5297 Other: Voiding Method Indwelling Catheter Indwelling Catheter Indwelling Catheter - Exam GENERAL EXAM: Alert, very pleasant, 73-year-old white male, in no distress. HEAD: Normocephalic/atraumatic. ENT, PERRLA, EOMI, no icterus, dry mucous membranes. No icterus. No JVD, no stridor. CHEST: No chest wall deformity. Symmetrical expansion. LUNGS: symmetrical expansion, minimal fine crackles at the bases. CVS: Regular rate and rhythm, normal S1 and S2, no gallops, no murmurs, no rubs ABDOMEN: Soft, nontender. No hepatosplenomegaly, normal bowel sounds, no guar ding or rigidity. EXTREMITIES: No clubbing, no edema, no cyanosis, 2+ pulses and upper and lower extremities. MUSCULOSKELETAL: normal range of motion, no deformities. SKIN: No rashes CENTRAL NERVOUS SYSTEM: alert oriented 3 focal neurologic deficit. PSYCHIATRIC: normal mood affect and normal mental status examination - Labs CBC & Chem 7: 01/30/19 04:36 01/30/19 04:36 Labs: Abnormal Lab Results - Last 24 Hours (Table) 01/29/19 01/29/19 01/29/19 Range/Units 04:55 11:50 12:45 RBC (4.30-5.90) m/uL Hgb (13.0-17.5) gm/dL Hct (39.0-53.0) % Neutrophils # (Manual) (1.3-7.7) k/uL Lymphocytes # (Manual) (1.0-4.8) k/uL Chloride (98-107) mmol/L Carbon Dioxide (22-30) mmol/L Glucose (74-99) mg/dL POC Glucose (mg/dL) 172 H (75-99) mg/dL Hemoglobin A1c 6.8 H (4.0-6.0) % Calcium (8.4-10.2) mg/dL ACTH 247.00 H (0.00-45.99) pg/mL 01/29/19 01/29/19 01/29/19 Range/Units 12:45 16:58 21:00 RBC 3.65 L (4.30-5.90) m/uL Hgb 10.8 L (13.0-17.5) gm/dL Hct 33.3 L (39.0-53.0) % Neutrophils # (Manual) (1.3-7.7) k/uL Lymphocytes # (Manual) (1.0-4.8) k/uL Chloride (98-107) mmol/L Carbon Dioxide (22-30) mmol/L Glucose (74-99) mg/dL POC Glucose (mg/dL) 222 H 267 H (75-99) mg/dL Hemoglobin A1c (4.0-6.0) % Calcium (8.4-10.2) mg/dL ACTH (0.00-45.99) pg/mL 01/30/19 01/30/19 01/30/19 Range/Units 04:36 04:36 06:35 RBC 3.43 L (4.30-5.90) m/uL Hgb 10.6 L (13.0-17.5) gm/dL Hct 31.2 L (39.0-53.0) % Neutrophils # (Manual) 7.90 H (1.3-7.7) k/uL Lymphocytes # (Manual) 0.90 L (1.0-4.8) k/uL Chloride 115 H (98-107) mmol/L Carbon Dioxide 19 L (22-30) mmol/L Glucose 155 H (74-99) mg/dL POC Glucose (mg/dL) 127 H (75-99) mg/dL Hemoglobin A1c (4.0-6.0) % Calcium 7.7 L (8.4-10.2) mg/dL ACTH (0.00-45.99) pg/mL Microbiology - Last 24 Hours (Table) 01/29/19 08:35 Gram Stain - Preliminary Sputum 01/28/19 15:20 Blood Culture - Preliminary Blood No Growth after 24 hours 01/28/19 09:00 Blood Culture - Preliminary Blood No Growth after 24 hours Assessment and Plan Assessment: #1. Altered mental status, possibly related to sepsis, and metabolic encephalopathy #2. aspiration pneumonia is strongly suspected, improving clinically. #3.acute kidney injury related to ATN, improving. #4. New-onset A. fib with RVR, status post cardioversion 2,, presently in normal sinus rhythm. #5. Hypotension, resolved he is presently off norepinephrine, but remains on hydrocortisone and Florinef. #6. history of herpetic neuralgia on the left posterior lumbar dermatome, patient is on Acyclovir #7.history of CAD with previous stenting #8. History of lymphoma, status post stem cell transplant #9. History of histoplasmosis status post lung resection and chronic dyspnea #10. History of MRSA pneumonia #11 adrenal hemorrhage, exact etiology is not clear, will continue Florinef and hydrocortisone. May eventually need to be sent home on Cortef and Florinef. Recommendation: Continue to monitor in the ICU. Continue antibiotics for aspiration pneumonia Continue IV fluids Continue hydrocortisone at 50 mg IV push every 8, continue Florinef. Consider transferring the patient to a monitor bed on selective if the bed is available. We'll continue to follow. Time with Patient: Less than 30
[2019-01-30 11:34] LABS: Glucose,Whole Blood 85 mg/dL (75-99)
--- NOTE | 2019-01-30 12:49 | P.PN ---
Progress Note - Text Progress Note Date: 01/30/19 The patient is afebrile and normotensive. He is alert and oriented and denies any abdominal pain. He does have some right flank pain but attributes this to his previous episode of herpes zoster. Hemoglobin was 11.2 yesterday morning and is 10.6 this morning. It's unlikely the patient has any significant persistent adrenal hemorrhage however before initiating anticoagulants I believe a repeat computed tomography scan of the adrenals should be performed tomorrow morning.
[2019-01-30] MEDS: VANCOMYCIN 1,500 MG in SODIUM CHLORIDE 0.9% 250 ML IVPB SCH (14:20)
--- NOTE | 2019-01-30 16:00 | P.PN ---
Subjective Patient is admitted without her mental status appears to have aspiration pneumonia when he lost consciousness. Patient is on broad-spectrum antibiotics at this time. Patient had an episode of atrial fibrillation patient was cardioverted and patient will need anti-correlation post cardioversion. Unfortunately patient CAT scan of the abdomen showed an adrenal hematoma I did well hemorrhage because of which neurology was consulted the recommending to hold off on IV heparin and aspirin is okay. Patient was hypotensive yesterday hypotension improved patient was febrile yesterday temperature improved patient is still on norepinephrine and started on stress dose steroids because of her septic shock. Patient's leukocytosis improved patient looks better today patient's creatinine improved. 05/31/2018 patient is doing much better patient appears to have adrenal insufficiency with the low cortisol and elevated ACTH which is primary adrenal insufficiency from adrenal hemorrhage. Patient is on fludrocortisone. Patient is normotensive at this time. Plan is to repeat CAT scan of the abdomen tomorrow make sure patient doesn't have any bleed depending on that decision regarding anti-correlation will be made. Patient is bit hyperchloremic and acidotic because of that. IV fluids will be switched to half-normal saline. Constitutional: Denied any fatigue denied any fever. Cardio vascular: denied any chest pain, palpitations Gastrointestinal denied any nausea vomiting Pulmonary: Denied any shortness of breath cough Neurologic denied any new focal deficits All inpatient medications were reviewed and appropriate changes in these m edications as dictated in the interval history and assessment and plan. Objective - Vital Signs Vital signs: Vital Signs Temp 98.7 F 01/30/19 04:00 Pulse 79 01/30/19 08:00 Resp 21 01/30/19 08:00 BP 114/70 01/30/19 08:00 Pulse Ox 94 L 01/30/19 08:00 Intake & Output 01/29/19 01/30/19 01/30/19 18:59 06:59 18:59 Intake Total 2558.810 925 800 Output Total 4775 606 4280 Balance 1543.810 425 -200 Weight 85.5 kg Intake: IV 1275 925 800 Piperacillin-Tazobactam 3 175 25 .375 gm In Sodium Chloride 0.9% 100 ml @ 25 mls/hr IVPB Q8HR [facility] Rx# :[id number] Sodium Chloride 0.9% 1, 1100 900 800 000 ml @ 100 mls/hr IV . Q10H [facility] Rx#:[id number] Intake, IV Titration 83.810 Amount Norepinephrine 4 mg In 59.388 Sodium Chloride 0.9% 250 ml @ 0.05 MCG/KG/MIN 15. 035 mls/hr IV .[id number] [facility] Rx#:[id number] Norepinephrine 4 mg In 24.422 Sodium Chloride 0.9% 250 ml @ 0.05 MCG/KG/MIN 15. 392 mls/hr IV .[id number] [facility] Rx#:[id number] Oral 1200 Output: Urine 1805 800 8515 Other: Voiding Method Indwelling Catheter Indwelling Catheter Indwelling Catheter - Exam PHYSICAL EXAMINATION: GENERAL: The patient is alert and oriented x3, not in any acute distress. Well developed, well nourished. Patient appears to be fatigued HEENT: Pupils are round and equally reacting to light. EOMI. No scleral icterus. No conjunctival pallor. Normocephalic, atraumatic. No pharyngeal erythema. No thyromegaly. CARDIOVASCULAR: S1 and S2 present. No murmurs, rubs, or gallops. PULMONARY: Chest is clear to auscultation, no wheezing or crackles. ABDOMEN: Soft, nontender, nondistended, normoactive bowel sounds. No palpable organomegaly. MUSCULOSKELETAL: No joint swelling or deformity. EXTREMITIES: No cyanosis, clubbing, or pedal edema. NEUROLOGICAL: Gross neurological examination did not reveal any focal deficits. SKIN: No rashes. - Labs CBC & Chem 7: 01/30/19 04:36 01/30/19 04:36 Labs: Abnormal Lab Results - Last 24 Hours (Table) 01/29/19 01/29/19 01/29/19 Range/Units 12:45 16:58 21:00 RBC (4.30-5.90) m/uL Hgb (13.0-17.5) gm/dL Hct (39.0-53.0) % Neutrophils # (Manual) (1.3-7.7) k/uL Lymphocytes # (Manual) (1.0-4.8) k/uL Chloride (98-107) mmol/L Carbon Dioxide (22-30) mmol/L Glucose (74-99) mg/dL POC Glucose (mg/dL) 222 H 267 H (75-99) mg/dL Calcium (8.4-10.2) mg/dL ACTH 247.00 H (0.00-45.99) pg/mL 01/30/19 01/30/19 01/30/19 Range/Units 04:36 04:36 06:35 RBC 3.43 L (4.30-5.90) m/uL Hgb 10.6 L (13.0-17.5) gm/dL Hct 31.2 L (39.0-53.0) % Neutrophils # (Manual) 7.90 H (1.3-7.7) k/uL Lymphocytes # (Manual) 0.90 L (1.0-4.8) k/uL Chloride 115 H (98-107) mmol/L Carbon Dioxide 19 L (22-30) mmol/L Glucose 155 H (74-99) mg/dL POC Glucose (mg/dL) 127 H (75-99) mg/dL Calcium 7.7 L (8.4-10.2) mg/dL ACTH (0.00-45.99) pg/mL Microbiology - Last 24 Hours (Table) 01/28/19 09:00 Blood Culture - Preliminary Blood No Growth after 48 hours 01/29/19 08:35 Gram Stain - Preliminary Sputum 01/28/19 15:20 Blood Culture - Preliminary Blood No Growth after 24 hours Assessment and Plan Plan: -Septic shock: Patient is presently on norepinephrine possible source of shock i s possibly secondary to aspiration pneumonia, patient shock may be related to most probably adrenal hemorrhage and adrenal insufficiency patient is on fludrocortisone and patient is off norepinephrine Patient is presently on vancomycin and Zosyn which will be continued, taper the therapy depending on the cultures. So far cultures are negative patient probably will be switched to Augmentin. There is no clear-cut evidence of infection except for possibility of aspiration -New-onset A. fib with rapid ventricular rate patient her proximal A. fib precipitated by sepsis will obtain echocardiogram , patient has normal ejection fraction. Patient is not on anti-correlation in spite of cardioversion after which she converted to sinus rhythm because patient has probable adrenal hemorrhage. urology evaluated the patient for adrenal hemorrhage -Adrenal hemorrhage urology evaluated the patient, it adrenal hemorrhage may be responsible for his hypotension , patient's ACTH is elevated consistent with primary adrenal insufficiency patient is already on fludrocortisone -Possible acute renal failure secondary to acute tubular necrosis and prerenal azotemia from sepsis improving with IV fluids -Coronary artery disease -type 2 diabetes mellitus patient metformin will be held because of sepsis and acute renal failure and the rest of his home regimen was resumed along with sliding scale insulin -Hypertension patient is presently hypotensive and septic. -History of lymphoma in the past which is in remission. -History of histoplasmosis in the past and had C. diff colitis to in the past -Toxic encephalopathy secondary to sepsis which improved now
[2019-01-30 16:49] LABS: Glucose,Whole Blood 123 mg/dL (75-99)
[2019-01-30] MEDS: SODIUM CHLORIDE 0.45% 1,000 ML IV SCH (16:54)
[2019-01-30 20:21] LABS: Glucose,Whole Blood 200 mg/dL (75-99)
[2019-01-30] MEDS: INSULIN DETEMIR (LEVEMIR) 100 UNIT/ML SYR SQ SCH (20:50)
[2019-01-31] MEDS ORDERED: VANCOMYCIN 1,500 MG in SODIUM CHLORIDE 0.9% 250 ML IVPB SCH ×2
[2019-01-31] MEDS: PIPERACILLIN-TAZOBACTAM 3.375 GM in SODIUM CHLORIDE 0.9% 100 ML IVPB SCH ×3 (00:01→15:27)
[2019-01-31 05:59] LABS: Glucose,Whole Blood 88 mg/dL (75-99)
[2019-01-31] MEDS: INSULIN ASPART (NovoLOG) 100 UNIT/ML VIAL SQ SCH ×4 (06:23→21:37)
[2019-01-31] MEDS: HYDROCORTISONE SUCCINATE 100 MG/2 ML VIAL IV SCH ×3 (06:45→21:11)
[2019-01-31] MEDS: SODIUM CHLORIDE 0.45% 1,000 ML IV SCH (06:47)
[2019-01-31] MEDS ORDERED: IOPAMIDOL CONTRAST (ORAL USE) VIAL PO PRN (07:36)
[2019-01-31 07:47] LABS: HCT 32.8 % (39.0-53.0); HGB 11.5 gm/dL (13.0-17.5); MCH 31.4 pg (25.0-35.0); MCV 89.8 fL (80.0-100.0); Mean Platelet Volume 8.1; Platelet Count 275 k/uL (150-450); RBC 3.65 m/uL (4.30-5.90); RDW 13.6 % (11.5-15.5)
[2019-01-31 07:52] LABS: African American GFR (CKD) >90 (>60 ml/min/1.73 sqM); Anion Gap 6 mmol/L; Blood Urea Nitrogen 12 mg/dL (9-20); Calcium 7.9 mg/dL (8.4-10.2); Carbon Dioxide 21 mmol/L (22-30); Chloride 111 mmol/L (98-107); Glucose 86 mg/dL (74-99); Non-African American GFR(CKD) 87 (>60 ml/min/1.73 sqM); Sodium 138 mmol/L (137-145)
[2019-01-31 08:13] LABS: Lymphocytes # (M) 1.65 k/uL (1.0-4.8); Monocytes # (M) 0.88 k/uL (0-1.0); Neutrophils # (M) 8.47 k/uL (1.3-7.7); Neutrophils % (M) 77 %; Nucleated Red Blood Cells 0 /100 WBC (0-0); Poikilocytosis (M) Present; Total Cells Counted 100
[2019-01-31 08:14] LABS: Large Platelets Present; Polychromasia Present
--- NOTE | 2019-01-31 08:46 | XR ---
EXAMINATION TYPE: XR chest 1V portable DATE OF EXAM: 01/31/2019 COMPARISON: 01/29/2019 HISTORY: Shortness of breath FINDINGS: There are bilateral pleural effusions with cardiomegaly and bibasilar infiltrate. There is a diffuse interstitial pattern. Postsurgical changes are noted. IMPRESSION: 1. Diffuse bilateral pleural-parenchymal changes are stable correlate for pulmonary edema versus pneu monia.
[2019-01-31] MEDS: FAMOTIDINE 20 MG TAB PO SCH ×2 (09:53→21:13)
[2019-01-31] MEDS: PREGABALIN 75 MG CAP PO SCH ×3 (09:53→21:12)
[2019-01-31] MEDS: ATORVASTATIN 40 MG TAB PO SCH (09:53)
[2019-01-31] MEDS: ASPIRIN 81 MG PO SCH (09:53)
[2019-01-31] MEDS: FLUDROCORTISONE 0.1 MG TAB PO SCH (09:54)
[2019-01-31] MEDS: ACYCLOVIR 200 MG CAP PO SCH ×2 (09:54→22:21)
[2019-01-31] MEDS: METOPROLOL TARTRATE 12.5 MG TAB PO SCH ×2 (09:54→21:12)
--- NOTE | 2019-01-31 10:28 | CT ---
EXAMINATION TYPE: CT abdomen wo/w con DATE OF EXAM: 01/31/2019 COMPARISON: 01/28/2019 HISTORY: 73-year-old male Adrenal mass with hemorrhage TECHNIQUE: Contiguous axial scanning of the abdomen before and after administration of 100 ml Isovue 300 IV contrast. Delayed images through the kidneys and coronal/sagittal reconstructions performed. CT DLP: 1478.8 mGycm Automated exposure control for dose reduction was used. FINDINGS: Heart is upper limits of normal in size with small anterior basilar pericardial fluid. Aortic valvula r calcifications are present with coronary artery calcifications. New small bilateral pleural effusions with adjacent opacities and underlying fibrosis. Tiny hiatal hernia. No focal liver lesion or biliary ductal dilatation. Flow artifact limiting assessment of the main por karen vein. Cholecystectomy clips. Redemonstrated heterogeneous mass of the right adrenal gland measuring 4.2 x 2.8 cm, stable from 01/07 and new from 04/30/2018. Noncontrast density is 21 Hounsfield units. Postcontrast density of 26 Hounsfield units and delayed density of 29 Hounsfield units. No significant enhancement is demonstra elizabeth. The previous mass seen of the left adrenal gland on 04/30/2018 again, is noted to be resolved. Bilateral perinephric edema could reflect acute or chronic kidney disease or senescent change. Hilar splenule. Atrophic pancreas. No dilated small bowel, free fluid, or free air. Mild generalized anasarca change. Mild atherosclerotic calcifications infrarenal abdominal aorta and right iliac artery. Scattered mild stool burden. No pericolonic inflammatory change. Pelvis not imaged. Bones: Moderately advanced degenerative disc disease mid to lower lumbar spine with hypertrophic face t arthropathy. IMPRESSION: 1. RIGHT ADRENAL MASS STABLE FROM 01/28/2019 AT 4.2 X 2.8 CM, NEW FROM 04/30/2018. NONCONTRAST, POSTCO NTRAST, AND DELAYED IMAGES SHOW DENSITY RANGING FROM 21-29 HOUNSFIELD UNITS WHICH IS NOT SIGNIFICANTL Y CHANGED. ADRENAL HEMORRHAGE REMAINS THE FAVORED ETIOLOGY ESPECIALLY GIVEN THAT THE LEFT ADRENAL MAS S SEEN ON 04/30/2018 HAS RESOLVED. CONTINUED FOLLOW-UP RECOMMENDED TO ENSURE RESOLUTION. 2. NEW GENERALIZED ANASARCA CHANGE AND NEW SMALL BILATERAL PLEURAL EFFUSIONS. CORRELATE FOR FLUID OVE RLOAD STATE. 3. INCREASING PATCHY POSTERIOR BASILAR LUNG OPACITIES COULD REPRESENT ATELECTASIS OR INFILTRATES SUPE RIMPOSED ON FIBROSIS.
[2019-01-31] MEDS ORDERED: VANCOMYCIN TROUGH DUE 1 EACH MISC MISCELLANE ONE (11:00)
--- NOTE | 2019-01-31 11:57 | P.PN ---
Subjective Progress Note Date: 01/31/19 Principal diagnosis: Bilateral pneumonia, possibly aspiration related pneumonia, altered mental status, metabolic encephalopathy this is 73-year-old white male patient of Dr. Galindo with a history of coronary artery disease with previous stenting, diabetes mellitus, hypertension, previous episodes of pneumonia, lymphoma currently in remission, history of histoplasmosis requiring lung resection, previous history of MRSA pneumonia, was brought into the emergency department on 01/28/2019 per EMS for evaluation of acute mental status changes, patient was found by his this morning. He will unresponsive, he had vomited, and possibly aspirated. Patient was last seen well last night, apparently yesterday patient was feeling well, she was actually out with his grandson, did not have any specific complaints. patient was hypotensive in an ambulance, and fluid bolus was started, he was found to be in new onset A. fib RVR, his systolic was in the 50s, and because of hemodynamic instability patient was cardioverted in the emergency department. He was cardioverted twice and he is now in sinus mechanism, he has been started on heparin infusion for anticoagulation, and he was started on empiric antibiotics initially with Rocephin and vancomycin, and she was given a dose of IV Acyclovir. Apparently last week patient also had herpetic pain along his dermatome on his right lower back there is no visible rash but patient has been taking oral acyclovir, especially in view of his history of bone marrow transplant. patient did receive a total of 3 l and fluid boluses,currently has blood pressure is 90/74 with a mean of 79, he is in sinus mechanism with a rate of 90 BPM, she was febrile on presentation with simple 102.4F, his mentation has improved, patient is awake and alert, and he seems to be back to his baseline, he is conversant, and giving history to providers.brain CT showed age- related atrophic and chronic small vessel ischemic changes without acute intr acranial process. chest x-ray showed left basilar and right upper lobe opacities, trace effusions.labs revealed white blood cell count of 16.7, hemoglobin of 14.2, remission profile was within normal limits, sodium is 132, potassium is 4.8, chloride is 98, CO2 is 21, B1 is 36 creatinine 1.75, LFTs are within normal limits, proBNP was 1120, urinalysis was negative for signs of infection, influenza screen was negative. He was placed in the intensive care unit for close hemodynamic monitoring, and we're consulted for critical care management Reevaluated today on 01/29/2019, patient remains in the intensive care unit, still on norepinephrine at 0.02 mcg/kg/m. Patient is feeling better, breathing easier, chest x-ray continues to show bilateral infiltrates consistent with possible aspiration pneumonia. His CT of the abdomen and pelvis questioned adrenal hematoma/hemorrhage, hence I will go ahead and recommend hydrocortisone in stress doses for this patient since blood pressure remains marginal, and I will start the patient on Florinef. In the meantime medically the patient is feeling better, remains on antibiotics, chest x-ray is showing improvement compared to the admission chest x-ray. Hence I believe the findings on the chest x-ray yesterday were mostly related to aspiration. Unless proven otherwise.CBC is relatively normal left lites are normal BUN is 23 creatinine 1.15. Patient was reevaluated today on 01/30/2019, remains in the intensive care unit, presently off norepinephrine, seems to be hemodynamically stable, patient is feeling better, breathing a lot easier, presently in normal sinus rhythm, blood pressure is 100/60. Heart rate seems to be well-controlled and in sinus rhythm. Patient remains on antibiotics for presumptive pneumonia, possibly aspiration, remains on hydrocortisone for presumptive adrenal insufficiency since his CT of the abdomen and pelvis showed Amilcar hemorrhage. Patient denies any cough, no wheezing, no fever, no chills, no hemoptysis, no chest pain. His last follow-up chest x-ray showed slight improvement, no chest x-ray was done today, but will go ahead and order one for tomorrow. WBC count is 9 hemoglobin is 10.6 and a close are normal renal profile is normal. On 01/31/2019 patient seen in follow-up on selective care unit. He is awake and alert, in no acute distress, he is on 3 L of oxygen his pulse ox is 92-95%, afebrile, his been up ambulating with therapy, in the hallway, tolerated activity very well. Denies any cough or congestion, he is working on incentive spirometer, achieving 1000 mL on the today, lung sounds reveal some chronic crackles at the left posterior base, he remains in sinus mechanism, with a c ontrolled rate. Today's chest x-ray still shows diffuse bilateral pleural parenchymal changes. CT of abdomen with and without contrast was obtained showing a right adrenal mass which appears to be stable from previous CT of abdomen on 01/28/2019, with adrenal hemorrhage still remaining the favored etiology. Her is no generalized anasarca and new small bilateral pleural effusions, and decreasing patchy posterior basilar lung opacities representing atelectasis or infiltrates, proposed on fibrosis. Patient has been started on diuretics, 20 mg every 12 hours, he remains on empiric antibiotics, form of Zosyn and vancomycin has been discontinued, he continues on acyclovir. Blood and sputum cultures showed no growth. Objective - Vital Signs Vital signs: Vital Signs Temp 97.7 F 01/31/19 08:00 Pulse 90 01/31/19 08:00 Resp 20 01/31/19 08:00 BP 148/80 01/31/19 08:00 Pulse Ox 92 L 01/31/19 08:00 Intake & Output 01/30/19 01/31/19 01/31/19 18:59 06:59 18:59 Intake Total 800 20 Output Total 1900 Balance -1100 20 Weight 84.9 kg Intake: IV 800 20 Invasive Line 2 20 Sodium Chloride 0.9% 1, 800 000 ml @ 100 mls/hr IV . Q10H [facility] Rx#:[id number] Output: Urine 1900 Other: Voiding Method Indwelling Catheter # Voids 1 - Exam GENERAL EXAM: Alert, very pleasant, 73-year-old white male, with a big abrasion on his forehead on his on the left side, comfortable in no apparent distress. HEAD: Normocephalic/atraumatic. EYES: Normal reaction of pupils, equal size. Conjunctiva pink, sclera white. NOSE: Clear with pink turbinates. THROAT: No erythema or exudates. NECK: No masses, no JVD, no thyroid enlargement, no adenopathy. CHEST: No chest wall deformity. Symmetrical expansion. LUNGS: Equal air entry with Limited fine crackles at the left posterior base, no wheeze, rhonchi or dullness. CVS: Regular rate and rhythm, normal S1 and S2, no gallops, no murmurs, no rubs ABDOMEN: Soft, nontender. No hepatosplenomegaly, normal bowel sounds, no guarding or rigidity. EXTREMITIES: No clubbing, no edema, no cyanosis, 2+ pulses and upper and lower extremities. MUSCULOSKELETAL: Muscle strength and tone normal. SPINE: No scoliosis or deformity SKIN: No rashes CENTRAL NERVOUS SYSTEM: Alert and oriented -3. No focal deficits, tone is normal in all 4 extremities. PSYCHIATRIC: Alert and oriented -3. Appropriate affect. Intact judgment and insight. - Labs CBC & Chem 7: 01/31/19 06:15 01/31/19 06:15 Labs: Abnormal Lab Results - Last 24 Hours (Table) 01/30/19 01/30/19 01/31/19 Range/Units 16:48 20:20 06:15 WBC (3.8-10.6) k/uL RBC (4.30-5.90) m/uL Hgb (13.0-17.5) gm/dL Hct (39.0-53.0) % Neutrophils # (Manual) (1.3-7.7) k/uL Chloride 111 H (98-107) mmol/L Carbon Dioxide 21 L (22-30) mmol/L POC Glucose (mg/dL) 123 H 200 H (75-99) mg/dL Calcium 7.9 L (8.4-10.2) mg/dL 01/31/19 Range/Units 06:15 WBC 11.0 H (3.8-10.6) k/uL RBC 3.65 L (4.30-5.90) m/uL Hgb 11.5 L (13.0-17.5) gm/dL Hct 32.8 L (39.0-53.0) % Neutrophils # (Manual) 8.47 H (1.3-7.7) k/uL Chloride (98-107) mmol/L Carbon Dioxide (22-30) mmol/L POC Glucose (mg/dL) (75-99) mg/dL Calcium (8.4-10.2) mg/dL Microbiology - Last 24 Hours (Table) 01/28/19 09:00 Blood Culture - Preliminary Blood No Growth after 72 hours 01/29/19 08:35 Gram Stain - Final Sputum Sputum Culture - Final 01/28/19 15:20 Blood Culture - Preliminary Blood No Growth after 48 hours Assessment and Plan Plan: assessment: #1. Altered mental status, possibly related to sepsis, and metabolic encephalopathy, improved #2. Bilateral pneumonia, possibly aspiration related, chest x-ray showed multifocal airspace disease involving right upper lobe and left base #3. acute kidney injury related to ATN #4. New-onset A. fib with RVR, status post cardioversion 2, and patient is currently in sinus rhythm #5. Hypotension, possibly related to septic shock, improved with IV hydration #6. history of herpetic neuralgia on the left posterior lumbar dermatome, patient is on Acyclovir #7.history of CAD with previous stenting #8. History of lymphoma, status post stem cell transplant #9. History of histoplasmosis status post lung resection and chronic dyspnea #10. History of MRSA pneumonia #11. Non smoker #12. History of interstitial pulmonary fibrosis #13. Depression Plan: Continue current antibiotics, today's chest x-ray has been reviewed showing worsening pleural parenchymal changes, possibly related to pulmonary edema, fluid overload, versus pneumonia. He has been started on IV Lasix, clinically he remains stable, he is tolerating ambulation, he has no fever, cultures are negative thus far. Follow-up CT of abdomen was noted, surgical services are following. Hemodynamically patient has remained stable, he remains on Florinef and hydrocortisone. No worsening shortness of breath, altered mentation, no fever or chills. Daily labs, electrolytes and renal profile, daily weights, repeat chest x-ray tomorrow. I performed a history & physical examination of the patient and discussed their management with my nurse practitioner, Toña Peterson. I reviewed the nurse practitioner's note and agree with the documented findings and plan of care. Lung sounds are positive for diminished breath sounds with a few scattered crac kles. The findings and the impression was discussed with the patient. I attest to the documentation by the nurse practitioner. Time with Patient: Less than 30
[2019-01-31 12:01] LABS: Glucose,Whole Blood 143 mg/dL (75-99)
--- NOTE | 2019-01-31 12:25 | P.PN ---
Subjective Patient is admitted without her mental status appears to have aspiration pneumonia when he lost consciousness. Patient is on broad-spectrum antibiotics at this time. Patient had an episode of atrial fibrillation patient was cardioverted and patient will need anti-correlation post cardioversion. Unfortunately patient CAT scan of the abdomen showed an adrenal hematoma I did well hemorrhage because of which neurology was consulted the recommending to hold off on IV heparin and aspirin is okay. Patient was hypotensive yesterday hypotension improved patient was febrile yesterday temperature improved patient is still on norepinephrine and started on stress dose steroids because of her septic shock. Patient's leukocytosis improved patient looks better today patient's creatinine improved. 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 Patient is on fludrocortisone. Patient is normotensive at this time. Plan is to repeat CAT scan of the abdomen tomorrow make sure patient doesn't have any bleed depending on that decision regarding anti-correlation will be made. Patient is bit hyperchloremic and acidotic because of that. IV fluids will be switched to half-normal saline. 01/31/2019 Patient does have pulmonary edema today because of which patient will be given Lasix today most probably patient will be discharged tomorrow we'll obtain PT and OT consultation. Patient blood pressure is stable at this time. Patient the on admission his symptomology is probably secondary to acute renal hemorrhage rather and sepsis all I cannot completely rule out sepsis because of which helped discharge the patient on Augmentin as the most possible source of sepsis if he has any is aspiration pneumonia. Constitutional: Denied any fatigue denied any fever. Cardio vascular: denied any chest pain, palpitations Gastrointestinal denied any nausea vomiting Pulmonary: Denied any shortness of breath cough Neurologic denied any new focal deficits All inpatient medications were reviewed and appropriate changes in these medications as dictated in the interval history and assessment and plan. Objective - Vital Signs Vital signs: Vital Signs Temp 97.7 F 01/31/19 12:00 Pulse 69 01/31/19 12:00 Resp 16 01/31/19 12:00 BP 117/61 01/31/19 12:00 Pulse Ox 94 L 01/31/19 12:00 Intake & Output 01/30/19 01/31/19 01/31/19 18:59 06:59 18:59 Intake Total 800 20 Output Total 1900 Balance -1100 20 Weight 84.9 kg Intake: IV 800 20 Invasive Line 2 20 Sodium Chloride 0.9% 1, 800 000 ml @ 100 mls/hr IV . Q10H [facility] Rx#:[id number] Output: Urine 1900 Other: Voiding Method Indwelling Catheter # Voids 1 - Exam PHYSICAL EXAMINATION: GENERAL: The patient is alert and oriented x3, not in any acute distress. Well developed, well nourished. Patient appears to be fatigued HEENT: Pupils are round and equally reacting to light. EOMI. No scleral icterus. No conjunctival pallor. Normocephalic, atraumatic. No pharyngeal erythema. No thyromegaly. CARDIOVASCULAR: S1 and S2 present. No murmurs, rubs, or gallops. PULMONARY: Chest is clear to auscultation, no wheezing or crackles. ABDOMEN: Soft, nontender, nondistended, normoactive bowel sounds. No palpable organomegaly. MUSCULOSKELETAL: No joint swelling or deformity. EXTREMITIES: No cyanosis, clubbing, or pedal edema. NEUROLOGICAL: Gross neurological examination did not reveal any focal deficits. SKIN: No rashes. - Labs CBC & Chem 7: 01/31/19 06:15 01/31/19 06:15 Labs: Abnormal Lab Results - Last 24 Hours (Table) 01/30/19 01/30/19 01/31/19 Range/Units 16:48 20:20 06:15 WBC (3.8-10.6) k/uL RBC (4.30-5.90) m/uL Hgb (13.0-17.5) gm/dL Hct (39.0-53.0) % Neutrophils # (Manual) (1.3-7.7) k/uL Chloride 111 H (98-107) mmol/L Carbon Dioxide 21 L (22-30) mmol/L POC Glucose (mg/dL) 123 H 200 H (75-99) mg/dL Calcium 7.9 L (8.4-10.2) mg/dL 01/31/19 01/31/19 Range/Units 06:15 11:58 WBC 11.0 H (3.8-10.6) k/uL RBC 3.65 L (4.30-5.90) m/uL Hgb 11.5 L (13.0-17.5) gm/dL Hct 32.8 L (39.0-53.0) % Neutrophils # (Manual) 8.47 H (1.3-7.7) k/uL Chloride (98-107) mmol/L Carbon Dioxide (22-30) mmol/L POC Glucose (mg/dL) 143 H (75-99) mg/dL Calcium (8.4-10.2) mg/dL Microbiology - Last 24 Hours (Table) 01/28/19 09:00 Blood Culture - Preliminary Blood No Growth after 72 hours 01/29/19 08:35 Gram Stain - Final Sputum Sputum Culture - Final 01/28/19 15:20 Blood Culture - Preliminary Blood No Growth after 48 hours Assessment and Plan Plan: - shock: Shock resolved most probably due to adrenal insufficiency although sepsis cannot be completely ruled out patient is being treated for aspiration pneumonia and patient is on fludrocortisone repeat CAT scan did not show any increasing hemorrhage. -New-onset A. fib with rapid ventricular rate patient her proximal A. fib precipitated by shock , patient has normal ejection fraction. Patient is not on anti-correlation in spite of cardioversion after which she converted to sinus rhythm because patient has probable adrenal hemorrhage. urology evaluated the patient for adrenal hemorrhage. Will discuss with urology. Probably related to start him back on anticoagulation. -Adrenal hemorrhage urology evaluated the patient, it adrenal hemorrhage may be responsible for his hypotension , patient's ACTH is elevated consistent with primary adrenal insufficiency patient is already on fludrocortisone -Possible acute renal failure secondary to acute tubular necrosis and prerenal azotemia from hypotension improved with IV fluids but the patient has pulmonary edema because of which IV fluids were discontinued and patient was started on Lasix -Leukocytosis secondary to systemic steroids hydrocortisone and fludrocortisone -Coronary artery disease -type 2 diabetes mellitus patient metformin will be held because of sepsis and acute renal failure and the rest of his home regimen was resumed along with sliding scale insulin -Hypertension -History of lymphoma in the past which is in remission. -History of histoplasmosis in the past and had C. diff colitis to in the past -Toxic encephalopathy secondary to sepsis which improved now
[2019-01-31] MEDS: FUROSEMIDE 10 MG/ML 4 ML VIAL IV SCH ×2 (12:55→21:11)
--- NOTE | 2019-01-31 16:16 | P.PN ---
Subjective Progress Note Date: 01/31/19 Principal diagnosis: Adrenal insufficiency, adrenal hemorrhage No acute overnight events, BP stable. Denies any abdominal pain Objective - Vital Signs Vital signs: Vital Signs Temp 98.2 F 01/31/19 14:25 Pulse 70 01/31/19 14:25 Resp 12 01/31/19 14:25 BP 98/58 01/31/19 14:25 Pulse Ox 92 L 01/31/19 14:25 Intake & Output 01/30/19 01/31/19 01/31/19 18:59 06:59 18:59 Intake Total 800 20 700 Output Total 1900 Balance -1100 20 700 Weight 84.9 kg Intake: IV 800 20 700 Invasive Line 2 20 Piperacillin-Tazobactam 3 100 .375 gm In Sodium Chloride 0.9% 100 ml @ 25 mls/hr IVPB Q8HR [facility] Rx# :[id number] Sodium Chloride 0.45% 1, 600 000 ml @ 75 mls/hr IV . [id number] [facility] Rx#:[id number] Sodium Chloride 0.9% 1, 800 000 ml @ 100 mls/hr IV . Q10H [facility] Rx#:[id number] Output: Urine 1900 Other: Voiding Method Indwelling Catheter # Voids 1 - Gastrointestinal General gastrointestinal: Present: soft. Absent: distended, rigid - Psychiatric Psychiatric: Present: A&O x's 3 - Labs CBC & Chem 7: 01/31/19 06:15 01/31/19 06:15 Labs: Abnormal Lab Results - Last 24 Hours (Table) 01/30/19 01/30/19 01/31/19 Range/Units 16:48 20:20 06:15 WBC (3.8-10.6) k/uL RBC (4.30-5.90) m/uL Hgb (13.0-17.5) gm/dL Hct (39.0-53.0) % Neutrophils # (Manual) (1.3-7.7) k/uL Chloride 111 H (98-107) mmol/L Carbon Dioxide 21 L (22-30) mmol/L POC Glucose (mg/dL) 123 H 200 H (75-99) mg/dL Calcium 7.9 L (8.4-10.2) mg/dL 01/31/19 01/31/19 Range/Units 06:15 11:58 WBC 11.0 H (3.8-10.6) k/uL RBC 3.65 L (4.30-5.90) m/uL Hgb 11.5 L (13.0-17.5) gm/dL Hct 32.8 L (39.0-53.0) % Neutrophils # (Manual) 8.47 H (1.3-7.7) k/uL Chloride (98-107) mmol/L Carbon Dioxide (22-30) mmol/L POC Glucose (mg/dL) 143 H (75-99) mg/dL Calcium (8.4-10.2) mg/dL Microbiology - Last 24 Hours (Table) 01/28/19 09:00 Blood Culture - Preliminary Blood No Growth after 72 hours 01/29/19 08:35 Gram Stain - Final Sputum Sputum Culture - Final 01/28/19 15:20 Blood Culture - Preliminary Blood No Growth after 48 hours Assessment and Plan Assessment: Mr. Phillips is a 73-year-old male admitted to the hospital with possible pneumo lalo. On presentation he was in A. fib with RVR he was also febrile at 102. Urology is consulted for possible adrenal hemorrhage. He underwent a CT on presentation that showed a 3.6 cm in the right adrenal gland this a new finding compared to CT from the months ago. Of note the CT from 9 months ago showed a lesion on the contralateral kidney that has now resolved. In the ED He receive 100 mg of hydrocortisone. His cortisol level was checked was and was 4 and his ACTH was 273. Repeat CT showed the adrenal hematoma stable in size. He is currently on cortisone Plan: -CT reviewed, hematoma stable in size. Okay to resume anticoagulation from urology standpoint -Endocrinology consult for management of his adrenal insufficiency. -Continue cortisone -Follow up in 2 weeks in urology clinic
--- NOTE | 2019-01-31 16:38 | P.PN ---
Subjective Progress Note Date: 01/31/19 This is a 73-year-old gentleman who was admitted to the hospital with altered mental status and hypotension. Patient also had atrial fibrillation was cardioverted in the emergency room because of hypotension. Patient has been on pressors for blood pressure support. His echocardiogram showed normal LV fu nction with mild aortic stenosis. Patient is maintaining sinus rhythm. Currently is on metoprolol 12.5 mg by mouth twice a day. Patient is also receiving hydrocortisone succinate injections. His blood pressure is about 100/60. Heart rate is controlled. Patient denies any chest pain or shortness of breath. He is also being treated for possible aspiration with antibiotics. Chest x-ray from yesterday showed densities in the right upper lobe with some improvement. 01/31/2019: This patient was admitted to the hospital with altered mental status and hypotension. Had a bout of atrial fibrillation with hypotension. Patient had a cardioversion. Patient subsequently was noted to have had renal hemorrhage. He was taken off the anti-cognition therapy. Patient had a repeat computed tomography scan of the abdomen. Waiting for the final recommendations from the urologist. Patient is complaining of mild shortness of breath. Chest x-ray showed bilateral pleural effusion. Patient is receiving IV Lasix. His is maintaining sinus rhythm. When cleared by urology, patient may need to go on anticoagulation therapy. We'll increase activity as tolerated Objective - Vital Signs Vital signs: Vital Signs Temp 98.2 F 01/31/19 14:25 Pulse 70 01/31/19 14:25 Resp 12 01/31/19 14:25 BP 98/58 01/31/19 14:25 Pulse Ox 92 L 01/31/19 14:25 Intake & Output 01/30/19 01/31/19 01/31/19 18:59 06:59 18:59 Intake Total 800 20 700 Output Total 1900 Balance -1100 20 700 Weight 84.9 kg Intake: IV 800 20 700 Invasive Line 2 20 Piperacillin-Tazobactam 3 100 .375 gm In Sodium Chloride 0.9% 100 ml @ 25 mls/hr IVPB Q8HR [facility] Rx# :[id number] Sodium Chloride 0.45% 1, 600 000 ml @ 75 mls/hr IV . [id number] [facility] Rx#:[id number] Sodium Chloride 0.9% 1, 800 000 ml @ 100 mls/hr IV . Q10H [facility] Rx#:[id number] Output: Urine 1900 Other: Voiding Method Indwelling Catheter # Voids 1 - Exam GENERAL EXAM: Patient is alert and oriented and doesn't appear to be in any acute distress HEENT: Normocephalic. Normal reaction of pupils, equal size, normal range of extraocular motion. No erythema or exudates in the throat. NECK: No masses, no nuchal rigidity. CHEST: No chest wall deformity. LUNGS: Equal air entry with no crackles or wheeze. HEART: S1 and S2 normal with no audible mumurs or gallops. Regular rhythm, femorals equal on both sides.. ABDOMEN: No hepatosplenomegaly, normal bowel sounds, no guarding or rigidity. SKIN: No rashes CENTRAL NERVOUS SYSTEM: No focal deficits. EXTREMITIES: No cyanosis, clubbing or edema. - Labs CBC & Chem 7: 01/31/19 06:15 01/31/19 06:15 Labs: Abnormal Lab Results - Last 24 Hours (Table) 01/30/19 01/30/19 01/31/19 Range/Units 16:48 20:20 06:15 WBC (3.8-10.6) k/uL RBC (4.30-5.90) m/uL Hgb (13.0-17.5) gm/dL Hct (39.0-53.0) % Neutrophils # (Manual) (1.3-7.7) k/uL Chloride 111 H (98-107) mmol/L Carbon Dioxide 21 L (22-30) mmol/L POC Glucose (mg/dL) 123 H 200 H (75-99) mg/dL Calcium 7.9 L (8.4-10.2) mg/dL 01/31/19 01/31/19 Range/Units 06:15 11:58 WBC 11.0 H (3.8-10.6) k/uL RBC 3.65 L (4.30-5.90) m/uL Hgb 11.5 L (13.0-17.5) gm/dL Hct 32.8 L (39.0-53.0) % Neutrophils # (Manual) 8.47 H (1.3-7.7) k/uL Chloride (98-107) mmol/L Carbon Dioxide (22-30) mmol/L POC Glucose (mg/dL) 143 H (75-99) mg/dL Calcium (8.4-10.2) mg/dL Microbiology - Last 24 Hours (Table) 01/28/19 09:00 Blood Culture - Preliminary Blood No Growth after 72 hours 01/29/19 08:35 Gram Stain - Final Sputum Sputum Culture - Final 01/28/19 15:20 Blood Culture - Preliminary Blood No Growth after 48 hours Assessment and Plan (1) Atrial fibrillation with RVR Current Visit: Yes Status: Acute Code(s): I48.91 - UNSPECIFIED ATRIAL FIBRILLATION SNOMED Code(s): 708950436159149 (2) Acute exacerbation of chronic obstructive pulmonary disease (COPD) Current Visit: No Status: Acute Code(s): J44.1 - CHRONIC OBSTRUCTIVE PULMONARY DISEASE W (ACUTE) EXACERBATION SNOMED Code(s): 677960460 (3) Adrenal hemorrhage Current Visit: Yes Status: Acute Code(s): E27.49 - OTHER ADRENOCORTICAL INSUFFICIENCY SNOMED Code(s): 14263613 Plan: Continue current medical therapy. Urology is planning to do a follow-up computed tomography scan tomorrow. If that shows stable findings, we will start patient on anticoagulation therapy. 01/31/2019: Patient's complaints of mild shortness of breath. Chest x-ray shows mild pleural effusion and also symmetric ectatic changes. Patient is receiving IV Lasix. Her had a repeat computed tomography scan. Final recommendations regarding anticoagulation therapy is pending from urology department. Further comminution depend upon the clinical course.
[2019-01-31 17:08] LABS: Glucose,Whole Blood 143 mg/dL (75-99)
[2019-01-31 20:25] LABS: Glucose,Whole Blood 189 mg/dL (75-99)
[2019-01-31] MEDS: INSULIN DETEMIR (LEVEMIR) 100 UNIT/ML SYR SQ SCH (21:20)
[2019-01-31 21:27] LABS: Glucose,Whole Blood 179 mg/dL (75-99)
[2019-02-01] MEDS: PIPERACILLIN-TAZOBACTAM 3.375 GM in SODIUM CHLORIDE 0.9% 100 ML IVPB SCH ×2 (00:27→08:48)
[2019-02-01 06:48] LABS: Glucose,Whole Blood 78 mg/dL (75-99)
[2019-02-01 07:37] VITALS: BP 104/61; TEMP 97.8
[2019-02-01 08:24] LABS: HCT 35.2 % (39.0-53.0); HGB 11.8 gm/dL (13.0-17.5); MCH 30.2 pg (25.0-35.0); MCHC 33.5 g/dL (31.0-37.0); MCV 90.3 fL (80.0-100.0); Mean Platelet Volume 7.7; Platelet Count 295 k/uL (150-450); RDW 13.6 % (11.5-15.5); WBC 9.6 k/uL (3.8-10.6)
[2019-02-01 08:29] LABS: Calcium 8.3 mg/dL (8.4-10.2); Potassium 3.3 mmol/L (3.5-5.1)
[2019-02-01] MEDS ORDERED: Potassium Replacement Protocol 1 EACH MISC MISCELLANE PRN (08:36)
--- NOTE | 2019-02-01 08:37 | XR ---
EXAMINATION TYPE: XR chest 1V portable DATE OF EXAM: 02/01/2019 COMPARISON: Prior chest x-ray 01/31/2019 HISTORY: Pneumonia, pleural effusions TECHNIQUE: Single frontal view of the chest is obtained. FINDINGS: Similar to prior exam. Postop changes noted to the upper thoracic spine. Heart is enlarged . No pneumothorax. Interstitium is increased. Blunting of the costophrenic angles is noted. Bones are unchanged. IMPRESSION: Findings are similar. There may be underlying interstitial lung disease, there are bilat eral small effusions and associated atelectasis, correlate to exclude pneumonia.
[2019-02-01] MEDS: INSULIN ASPART (NovoLOG) 100 UNIT/ML VIAL SQ SCH ×2 (08:39→12:14)
[2019-02-01] MEDS: FAMOTIDINE 20 MG TAB PO SCH (08:40)
[2019-02-01] MEDS: PREGABALIN 75 MG CAP PO SCH (08:40)
[2019-02-01] MEDS: ATORVASTATIN 40 MG TAB PO SCH (08:40)
[2019-02-01] MEDS: METOPROLOL TARTRATE 12.5 MG TAB PO SCH (08:40)
[2019-02-01] MEDS: FLUDROCORTISONE 0.1 MG TAB PO SCH (08:40)
[2019-02-01] MEDS: ASPIRIN 81 MG PO SCH (08:40)
[2019-02-01] MEDS: HYDROCORTISONE SUCCINATE 100 MG/2 ML VIAL IV SCH (08:40)
[2019-02-01] MEDS: ACYCLOVIR 200 MG CAP PO SCH (08:40)
[2019-02-01] MEDS: POTASSIUM CHLORIDE ER 20 MEQ TAB.ER PO SCH ×2 (10:15→12:15)
[2019-02-01] MEDS: FUROSEMIDE 10 MG/ML 4 ML VIAL IV SCH (10:15)
[2019-02-01 11:49] LABS: Glucose,Whole Blood 150 mg/dL (75-99)
[2019-02-01 11:57] VITALS: PULSE 65; RESP 16
--- NOTE | 2019-02-01 12:20 | P.PN ---
Subjective Progress Note Date: 02/01/19 Principal diagnosis: Bilateral pneumonia, possibly aspiration related pneumonia, altered mental status, metabolic encephalopathy this is 73-year-old white male patient of Dr. Galindo with a history of coronary artery disease with previous stenting, diabetes mellitus, hypertension, previous episodes of pneumonia, lymphoma currently in remission, history of histoplasmosis requiring lung resection, previous history of MRSA pneumonia, was brought into the emergency department on 01/28/2019 per EMS for evaluation of acute mental status changes, patient was found by his this morning. He will unresponsive, he had vomited, and possibly aspirated. Patient was last seen well last night, apparently yesterday patient was feeling well, she was actually out with his grandson, did not have any specific complaints. patient was hypotensive in an ambulance, and fluid bolus was started, he was found to be in new onset A. fib RVR, his systolic was in the 50s, and because of hemodynamic instability patient was cardioverted in the emergency department. He was cardioverted twice and he is now in sinus mechanism, he has been started on heparin infusion for anticoagulation, and he was started on empiric antibiotics initially with Rocephin and vancomycin, and she was given a dose of IV Acyclovir. Apparently last week patient also had herpetic pain along his dermatome on his right lower back there is no visible rash but patient has been taking oral acyclovir, especially in view of his history of bone marrow transplant. patient did receive a total of 3 l and fluid boluses,currently has blood pressure is 90/74 with a mean of 79, he is in sinus mechanism with a rate of 90 BPM, she was febrile on presentation with simple 102.4F, his mentation has improved, patient is awake and alert, and he seems to be back to his baseline, he is conversant, and giving history to providers.brain CT showed age- related atrophic and chronic small vessel ischemic changes without acute intr acranial process. chest x-ray showed left basilar and right upper lobe opacities, trace effusions.labs revealed white blood cell count of 16.7, hemoglobin of 14.2, remission profile was within normal limits, sodium is 132, potassium is 4.8, chloride is 98, CO2 is 21, B1 is 36 creatinine 1.75, LFTs are within normal limits, proBNP was 1120, urinalysis was negative for signs of infection, influenza screen was negative. He was placed in the intensive care unit for close hemodynamic monitoring, and we're consulted for critical care management Reevaluated today on 01/29/2019, patient remains in the intensive care unit, still on norepinephrine at 0.02 mcg/kg/m. Patient is feeling better, breathing easier, chest x-ray continues to show bilateral infiltrates consistent with possible aspiration pneumonia. His CT of the abdomen and pelvis questioned adrenal hematoma/hemorrhage, hence I will go ahead and recommend hydrocortisone in stress doses for this patient since blood pressure remains marginal, and I will start the patient on Florinef. In the meantime medically the patient is feeling better, remains on antibiotics, chest x-ray is showing improvement compared to the admission chest x-ray. Hence I believe the findings on the chest x-ray yesterday were mostly related to aspiration. Unless proven otherwise.CBC is relatively normal left lites are normal BUN is 23 creatinine 1.15. Patient was reevaluated today on 01/30/2019, remains in the intensive care unit, presently off norepinephrine, seems to be hemodynamically stable, patient is feeling better, breathing a lot easier, presently in normal sinus rhythm, blood pressure is 100/60. Heart rate seems to be well-controlled and in sinus rhythm. Patient remains on antibiotics for presumptive pneumonia, possibly aspiration, remains on hydrocortisone for presumptive adrenal insufficiency since his CT of the abdomen and pelvis showed Amilcar hemorrhage. Patient denies any cough, no wheezing, no fever, no chills, no hemoptysis, no chest pain. His last follow-up chest x-ray showed slight improvement, no chest x-ray was done today, but will go ahead and order one for tomorrow. WBC count is 9 hemoglobin is 10.6 and a close are normal renal profile is normal. On 01/31/2019 patient seen in follow-up on selective care unit. He is awake and alert, in no acute distress, he is on 3 L of oxygen his pulse ox is 92-95%, afebrile, his been up ambulating with therapy, in the hallway, tolerated activity very well. Denies any cough or congestion, he is working on incentive spirometer, achieving 1000 mL on the today, lung sounds reveal some chronic crackles at the left posterior base, he remains in sinus mechanism, with a c ontrolled rate. Today's chest x-ray still shows diffuse bilateral pleural parenchymal changes. CT of abdomen with and without contrast was obtained showing a right adrenal mass which appears to be stable from previous CT of abdomen on 01/28/2019, with adrenal hemorrhage still remaining the favored etiology. Her is no generalized anasarca and new small bilateral pleural effusions, and decreasing patchy posterior basilar lung opacities representing atelectasis or infiltrates, proposed on fibrosis. Patient has been started on diuretics, 20 mg every 12 hours, he remains on empiric antibiotics, form of Zosyn and vancomycin has been discontinued, he continues on acyclovir. Blood and sputum cultures showed no growth. On 02/01/2019 patient seen in follow-up on medical surgical floor. He is resting comfortably in bed, room air pulse ox is 94%, he is afebrile, hemodynamically patient is stable, this morning's blood pressure is 104/61, currently on hydrocortisone at 50 mg every 12 hours, and fludrocortisone. Has remained hemodynamically stable, he was started on IV Lasix at 40 mg every 12 hours, his chest x-ray showed pulmonary edema, patient has diuresed, he is in - 1080 mL fluid balance over the last 24 hours, as today's chest x-ray still shows interstitial lung disease, bilateral small pleural effusions and associated atelectasis. His labs have been reviewed, showing low blood cell count 9.6, hemoglobin of 11.8, potassium 3.3, the rest of electrolytes and renal profile were within normal limits. He is on empiric antibiotics in the form of Zosyn, vancomycin has been discontinued, remains on oral Acyclovir, and his blood and sputum cultures have been negative thus far. Objective - Vital Signs Vital signs: Vital Signs Temp 97.8 F 02/01/19 07:36 Pulse 65 02/01/19 11:56 Resp 16 02/01/19 11:56 BP 104/61 02/01/19 07:36 Pulse Ox 94 L 02/01/19 11:56 Intake & Output 01/31/19 02/01/19 02/01/19 18:59 06:59 18:59 Intake Total 700 Balance 700 Weight 85.6 kg Intake: IV 700 Piperacillin-Tazobactam 3 100 .375 gm In Sodium Chloride 0.9% 100 ml @ 25 mls/hr IVPB Q8HR [facility] Rx# :[id number] Sodium Chloride 0.45% 1, 600 000 ml @ 75 mls/hr IV . [id number] [facility] Rx#:[id number] Other: Voiding Method Toilet Toilet # Voids 2 2 - Exam GENERAL EXAM: Alert, very pleasant, 73-year-old white male, with a big abrasion on his forehead on his on the left side, comfortable in no apparent distress. HEAD: Normocephalic/atraumatic. EYES: Normal reaction of pupils, equal size. Conjunctiva pink, sclera white. NOSE: Clear with pink turbinates. THROAT: No erythema or exudates. NECK: No masses, no JVD, no thyroid enlargement, no adenopathy. CHEST: No chest wall deformity. Symmetrical expansion. LUNGS: Equal air entry with Limited fine crackles at the left posterior base, no wheeze, rhonchi or dullness. CVS: Regular rate and rhythm, normal S1 and S2, no gallops, no murmurs, no rubs ABDOMEN: Soft, nontender. No hepatosplenomegaly, normal bowel sounds, no guar ding or rigidity. EXTREMITIES: No clubbing, no edema, no cyanosis, 2+ pulses and upper and lower extremities. MUSCULOSKELETAL: Muscle strength and tone normal. SPINE: No scoliosis or deformity SKIN: No rashes CENTRAL NERVOUS SYSTEM: Alert and oriented -3. No focal deficits, tone is normal in all 4 extremities. PSYCHIATRIC: Alert and oriented -3. Appropriate affect. Intact judgment and insight. - Labs CBC & Chem 7: 02/01/19 07:55 02/01/19 07:55 Labs: Abnormal Lab Results - Last 24 Hours (Table) 01/31/19 01/31/19 01/31/19 Range/Units 16:57 20:23 21:17 RBC (4.30-5.90) m/uL Hgb (13.0-17.5) gm/dL Hct (39.0-53.0) % Potassium (3.5-5.1) mmol/L Glucose (74-99) mg/dL POC Glucose (mg/dL) 143 H 189 H 179 H (75-99) mg/dL Calcium (8.4-10.2) mg/dL 02/01/19 02/01/19 02/01/19 Range/Units 07:55 07:55 11:48 RBC 3.90 L (4.30-5.90) m/uL Hgb 11.8 L (13.0-17.5) gm/dL Hct 35.2 L (39.0-53.0) % Potassium 3.3 L (3.5-5.1) mmol/L Glucose 137 H (74-99) mg/dL POC Glucose (mg/dL) 150 H (75-99) mg/dL Calcium 8.3 L (8.4-10.2) mg/dL Microbiology - Last 24 Hours (Table) 01/28/19 09:00 Blood Culture - Preliminary Blood No Growth after 96 hours 01/28/19 15:20 Blood Culture - Preliminary Blood No Growth after 72 hours 01/29/19 08:35 Gram Stain - Final Sputum Sputum Culture - Final Assessment and Plan Plan: assessment: #1. Altered mental status, possibly related to sepsis, and metabolic encephalopathy, improved #2. Bilateral pneumonia, possibly aspiration related, chest x-ray showed multifocal airspace disease involving right upper lobe and left base #3. acute kidney injury related to ATN #4. New-onset A. fib with RVR, status post cardioversion 2, and patient is currently in sinus rhythm #5. Hypotension, possibly related to septic shock, improved with IV hydration #6. history of herpetic neuralgia on the left posterior lumbar dermatome, patient is on Acyclovir #7.history of CAD with previous stenting #8. History of lymphoma, status post stem cell transplant #9. History of histoplasmosis status post lung resection and chronic dyspnea #10. History of MRSA pneumonia #11. Non smoker #12. History of interstitial pulmonary fibrosis #13. Depression Plan: Continue IV diuretics, today's chest x-ray still shows small pleural effusions, interstitial edema. Hemodynamically stable, FiO2 is down to room air, vital signs have been stable, we'll switch IV hydrocortisone to oral Cortef 20 mg twice a day. Cultures have been negative, no fever or chills, increase activity as tolerated, possibility of discharge home in the next 24 hours. I performed a history & physical examination of the patient and discussed their management with my nurse practitioner, Toña Peterson. I reviewed the nurse pra ctitioner's note and agree with the documented findings and plan of care. Lung sounds are positive for diminished breath sounds with a few scattered crackles. The findings and the impression was discussed with the patient. I attest to the documentation by the nurse practitioner. Time with Patient: Less than 30
[2019-02-01] MEDS ORDERED: POTASSIUM CHLORIDE ER 20 MEQ TAB.ER PO STA (12:53)
--- NOTE | 2019-02-01 12:57 | P.DS ---
Providers Date of admission: 01/28/19 11:02 Attending physician: Francisco Javier Deluna Consults: 01/28/19 11:02 Consult Physician Stat Consulting Provider: Bridgett Montes Consult Reason/Comments: Sepsis, PNA Do you want consulting provider notified?: Already Contacted 01/28/19 14:23 Consult Physician Routine Consulting Provider: Frederick Roberts Consult Reason/Comments: a.fib Do you want consulting provider notified?: Yes 01/28/19 17:54 Consult Physician Urgent Consulting Provider: Kurtis Lane Consult Reason/Comments: Possible adrenal hemorrhage Do you want consulting provider notified?: Yes 01/29/19 11:22 Consult Physician Routine Consulting Provider: Mary Grace Urias Consult Reason/Comments: adrenal hemorrhage/adrenal insufficiency Do you want consulting provider notified?: Yes, Notify in am Primary care physician: Angela Galindo [place] [facility] Course: Patient is admitted without her mental status appears to have aspiration pneumonia when he lost consciousness. Patient is on broad-spectrum antibiotics at this time. Patient had an episode of atrial fibrillation patient was cardioverted and patient will need anti-correlation post cardioversion. Unfortunately patient CAT scan of the abdomen showed an adrenal hematoma I did well hemorrhage because of which neurology was consulted the recommending to hold off on IV heparin and aspirin is okay. Patient was hypotensive yesterday hypotension improved patient was febrile yesterday temperature improved patient is still on norepinephrine and started on stress dose steroids because of her septic shock. Patient's leukocytosis improved patient looks better today patient's creatinine improved. 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 Patient is on fludrocortisone. Patient is normotensive at this time. Plan is to repeat CAT scan of the abdomen tomorrow make sure patient doesn't have any bleed depending on that decision regarding anti-correlation will be made. Patient is bit hyperchloremic and acidotic because of that. IV fluids will be switched to half-normal saline. 01/31/2019 Patient does have pulmonary edema today because of which patient will be given Lasix today most probably patient will be discharged tomorrow we'll obtain PT and OT consultation. Patient blood pressure is stable at this time. Patient the on admission his symptomology is probably secondary to acute renal hemorrhage rather and sepsis all I cannot completely rule out sepsis because of which helped discharge the patient on Augmentin as the most possible source of sepsis if he has any is aspiration pneumonia. 02/01/2019 Patient is clinically doing well is off oxygen patient has some chronic diastolic dysfunction. Patient is being discharged on aspirin and Eliquis. Plavix is being discontinued as the patient had a cardiac catheterization and stent that was placed 5 years ago. Discussed with retail business development manager and decided to send him on fludrocortisone 0.1 mg daily and hydrocortisone 20 twice a day and this will be tapered as an outpatient. PHYSICAL EXAMINATION: GENERAL: The patient is alert and oriented x3, not in any acute distress. Well developed, well nourished. HEENT: Pupils are round and equally reacting to light. EOMI. No scleral icterus. No conjunctival pallor. Normocephalic, atraumatic. No pharyngeal erythema. No thyromegaly. CARDIOVASCULAR: S1 and S2 present. No murmurs, rubs, or gallops. PULMONARY: Chest is clear to auscultation, no wheezing or crackles. ABDOMEN: Soft, nontender, nondistended, normoactive bowel sounds. No palpable organomegaly. MUSCULOSKELETAL: No joint swelling or deformity. EXTREMITIES: No cyanosis, clubbing, or pedal edema. NEUROLOGICAL: Gross neurological examination did not reveal any focal deficits. SKIN: No rashes. Assessment and Plan Plan: - shock: Shock resolved most probably due to adrenal insufficiency although sepsis cannot be completely ruled out patient is being treated for aspiration pneumonia and patient is on fludrocortisone repeat CAT scan did not show any increasing hemorrhage. Patient is cleared for anticoagulation by urology -New-onset A. fib with rapid ventricular rate patient her proximal A. fib precipitated by shock , patient has normal ejection fraction. A she is being started on anti-correlation and will be discharged patient given anti- correlation at least 4-6 weeks -Adrenal hemorrhage urology evaluated the patient, it adrenal hemorrhage may be responsible for his hypotension , patient's ACTH is elevated consistent with primary adrenal insufficiency patient is already on fludrocortisone and hydrocortisone -Possible acute renal failure secondary to acute tubular necrosis and prerenal azotemia from hypotension improved with IV fluids patient is presently volume overloaded receiving IV Lasix and we're able to naproxen patient will be disch arged today. -Leukocytosis secondary to systemic steroids hydrocortisone and fludrocortisone -Coronary artery disease -type 2 diabetes mellitus -Hypertension -History of lymphoma in the past which is in remission. -History of histoplasmosis in the past and had C. diff colitis to in the past -Toxic encephalopathy secondary to sepsis which improved now Patient Condition at Discharge: Serious Plan - Discharge Summary Discharge Rx Participant: No New Discharge Prescriptions: New Hydrocortisone [Cortef] 20 mg PO BID #30 tab Apixaban [Eliquis] 5 mg PO BID #60 tab Fludrocortisone [Florinef] 0.1 mg PO DAILY #30 tab Famotidine [Pepcid] 20 mg PO BID #20 tab Acyclovir [Zovirax] 400 mg PO BID #14 cap Continue Furosemide [Lasix] 20 mg PO DAILY Aspirin [Adult Low Dose Aspirin EC] 81 mg PO DAILY Multivit-Min/FA/Lycopen/Lutein [Centrum Silver Men Tablet] 1 tab PO DAILY metFORMIN HCL [Glucophage] 500 mg PO AC-BID Metoprolol Tartrate [Lopressor] 12.5 mg PO BID Atorvastatin [Lipitor] 40 mg PO DAILY Insulin Glargine,Hum.rec.anlog [Toujeo Solostar] 24 units SQ HS Potassium Chloride ER [K-Dur 10] 10 meq PO DAILY Ipratropium-Albuterol Nebulize [Duoneb 0.5 mg-3 mg/3 ml Soln] 3 ml INHALATION RT-Q6H PRN PRN Reason: Shortness Of Breath Pregabalin [Lyrica] 75 mg PO TID Montelukast Sodium [Singulair] 10 mg PO HS Acetaminophen-Codeine 300-30mg [Tylenol w/codeine #3] 1 - 2 tab PO Q4HR PRN PRN Reason: Pain Amoxicillin/Potassium Clav [Augmentin 875-125 Tablet] 1 tab PO Q12HR #10 tab Discontinued Glimepiride [Amaryl] 4 mg PO DAILY Discharge Medication List Furosemide [Lasix] 20 mg PO DAILY 08/25/16 [History] Aspirin [Adult Low Dose Aspirin EC] 81 mg PO DAILY 10/27/16 [History] Multivit-Min/FA/Lycopen/Lutein [Centrum Silver Men Tablet] 1 tab PO DAILY 07/26/17 [History] metFORMIN HCL [Glucophage] 500 mg PO AC-BID 07/26/17 [History] Metoprolol Tartrate [Lopressor] 12.5 mg PO BID 09/15/17 [History] Atorvastatin [Lipitor] 40 mg PO DAILY 04/30/18 [History] Insulin Glargine,Hum.rec.anlog [Toubethany Solostar] 24 units SQ HS 04/30/18 [History] Ipratropium-Albuterol Nebulize [Duoneb 0.5 mg-3 mg/3 ml Soln] 3 ml INHALATION RT-Q6H PRN 05/08/18 [History] Potassium Chloride ER [K-Dur 10] 10 meq PO DAILY 05/08/18 [History] Acetaminophen-Codeine 300-30mg [Tylenol w/codeine #3] 1 - 2 tab PO Q4HR PRN 01/28/19 [History] Montelukast Sodium [Singulair] 10 mg PO HS 01/28/19 [History] Pregabalin [Lyrica] 75 mg PO TID 01/28/19 [History] Acyclovir [Zovirax] 400 mg PO BID #14 cap 02/01/19 [Rx] Amoxicillin/Potassium Clav [Augmentin 875-125 Tablet] 1 tab PO Q12HR #10 tab 02/01/19 [Rx] Apixaban [Eliquis] 5 mg PO BID #60 tab 02/01/19 [Rx] Famotidine [Pepcid] 20 mg PO BID #20 tab 02/01/19 [Rx] Fludrocortisone [Florinef] 0.1 mg PO DAILY #30 tab 02/01/19 [Rx] Hydrocortisone [Cortef] 20 mg PO BID #30 tab 02/01/19 [Rx] Follow up Appointment(s)/Referral(s): Chepe Landry MD [REFERRING] - [address] MD [STAFF PHYSICIAN] - 2 Weeks Angela Galindo MD [Primary Care Provider] - 3 Days [facility] Visiting Nurse, [NON-STAFF] - 1 Week
--- NOTE | 2019-02-01 19:35 | PN ---
PROGRESS NOTE Mr. Phillips is a 73-year-old male who presented with pneumonia and respiratory failure. He is feeling better today. He is ambulating without difficulty, denying any chest pain. Denies any dizziness or palpitations. He denies any nausea. He had atrial fibrillation. He underwent cardioversion with voodoo of normal sinus rhythm. He had an echocardiogram during this admission that revealed preserved left ventricular size and systolic function. He has no further discomfort or complaint. PHYSICAL EXAMINATION: Blood pressure 104/60 with a heart rate in the 60s. LUNGS: Clear. HEART: Regular rhythm and rate. S1, S2. No S3. No rub or gallop appreciated. ABDOMEN: Soft, nontender. Positive bowel sounds. No organomegaly. EXTREMITIES: No edema. The patient's anticoagulation was stopped but has been re-initiated at the time of discharge. IMPRESSION: 1. Change in mental status with hypotension and pneumonia. 2. Paroxysmal atrial fibrillation; back in sinus mechanism. 3. Adrenal hemorrhage. RECOMMENDATIONS: From the cardiac standpoint, the patient is stable. He will be discharged home today and followed as an outpatient. MMODL / IJN: [id number] /
[2019-02-01] MEDS ORDERED: HYDROCORTISONE 20 MG TAB PO SCH (21:00)
== END 2019-02-01 15:00 | disposition home health service (06) | DRG 871 ==
LOC: EC 08:05 → 2SICU 11:02 → 3SCARD 01-30 18:31 → 4SSUR 01-31 13:55
PROVIDERS: ADMIT Internal Medicine; ATTEND Internal Medicine
PROC: 5A2204Z Restoration of Cardiac Rhythm, Single (ICD-10-PCS; principal; 2019-01-28)
PROC: 02HV33Z Insertion of Infusion Device into Superior Vena Cava, Percutaneous Approach (ICD-10-PCS; 2019-01-28)
DX: A41.9 Sepsis, unspecified organism (principal); G93.41 Metabolic encephalopathy; J69.0 Pneumonitis due to inhalation of food and vomit; J96.90 Respiratory failure, unspecified, unspecified whether with hypoxia or hypercapnia; N17.0 Acute kidney failure with tubular necrosis; R65.21 Severe sepsis with septic shock; E27.49 Other adrenocortical insufficiency; E87.1 Hypo-osmolality and hyponatremia; E87.2 Acidosis; J44.1 Chronic obstructive pulmonary disease with (acute) exacerbation; J90 Pleural effusion, not elsewhere classified; J98.11 Atelectasis; Z94.81 Bone marrow transplant status; Z94.84 Stem cells transplant status; E11.42 Type 2 diabetes mellitus with diabetic polyneuropathy; F32.9 Major depressive disorder, single episode, unspecified; I10 Essential (primary) hypertension; I25.10 Atherosclerotic heart disease of native coronary artery without angina pectoris; I48.0 Paroxysmal atrial fibrillation; E87.70 Fluid overload, unspecified; E87.8 Other disorders of electrolyte and fluid balance, not elsewhere classified; T38.0X5A Adverse effect of glucocorticoids and synthetic analogues, initial encounter; D72.829 Elevated white blood cell count, unspecified; Z79.4 Long term (current) use of insulin; Z79.82 Long term (current) use of aspirin; Z79.899 Other long term (current) drug therapy; Z85.72 Personal history of non-Hodgkin lymphomas; Z86.14 Personal history of Methicillin resistant Staphylococcus aureus infection; Z87.01 Personal history of pneumonia (recurrent); Z95.5 Presence of coronary angioplasty implant and graft; Z85.828 Personal history of other malignant neoplasm of skin; Z92.21 Personal history of antineoplastic chemotherapy; Z92.3 Personal history of irradiation; Z90.2 Acquired absence of lung [part of]; Z90.49 Acquired absence of other specified parts of digestive tract; J84.10 Pulmonary fibrosis, unspecified; Z82.49 Family history of ischemic heart disease and other diseases of the circulatory system; Z83.79 Family history of other diseases of the digestive system
CPT/HCPCS: 36415; 36556; 70450; 71045; 71046; 74170; 74176; 80048; 80053; 81003; 82024; 82533; 82550; 83036; 83605; 83735; 83880; 84145; 85025; 85027; 85610; 85730; 87040; 87070; 87205; 87502; 93005; 93306; 94640; 96365; 96366; 96367; 96375; 99291; 99292

== ENCOUNTER 2019-02-17 22:12 | Inpatient (IN) | payer MEDICARE ==
[2019-02-17] MEDS ORDERED: ONDANSETRON 4 MG/2 ML VIAL IVP STA (22:45)
[2019-02-17] MEDS ORDERED: ACETAMINOPHEN TAB 500 MG TAB PO STA (22:45)
[2019-02-17] MEDS ORDERED: SODIUM CHLORIDE 0.9% 1,000 ML IV STA (22:45)
--- NOTE | 2019-02-17 23:11 | ED ---
General Adult HPI - General Chief complaint: Weakness Stated complaint: weakness Time Seen by Provider: 02/17/19 22:21 Source: patient, family, EMS Limitations: no limitations - History of Present Illness Initial comments: Patient presents the ED by ambulance for evaluation with his daughter at bedside. Per daughter, the patient has had a low-grade fever, nausea and vomiting since this morning. Per daughter, the patient has also felt generally weak today. Patient admits to feeling generally weak and nauseated. Patient denies having any other symptoms or complaints. Patient denies having any pain, headache, focal neuro deficit, neck pain or stiffness, sore throat, cough or cold symptoms, chest pain, dyspnea, dizziness, abdominal pain, diarrhea or constipation, bloody or melanotic stool, hematemesis, dysuria/hematuria/urinary frequency/urinary symptoms, or any other symptoms or complaints. Patient denies taking any antipyretic medication today. - Related Data Home Medications Medication Instructions Recorded Confirmed Furosemide [Lasix] 20 mg PO DAILY 08/25/16 01/28/19 Aspirin [Adult Low Dose Aspirin EC] 81 mg PO DAILY 10/27/16 01/28/19 Multivit-Min/FA/Lycopen/Lutein 1 tab PO DAILY 07/26/17 01/28/19 [Centrum Silver Men Tablet] metFORMIN HCL [Glucophage] 500 mg PO AC-BID 07/26/17 01/28/19 Metoprolol Tartrate [Lopressor] 12.5 mg PO BID 09/15/17 01/28/19 Atorvastatin [Lipitor] 40 mg PO DAILY 04/30/18 01/28/19 Insulin Glargine,Hum.rec.anlog 24 units SQ HS 04/30/18 01/28/19 [Toujeo Solostar] Ipratropium-Albuterol Nebulize 3 ml INHALATION RT-Q6H PRN 05/08/18 01/28/19 [Duoneb 0.5 mg-3 mg/3 ml Soln] Potassium Chloride ER [K-Dur 10] 10 meq PO DAILY 05/08/18 01/28/19 Acetaminophen-Codeine 300-30mg 1 - 2 tab PO Q4HR PRN 01/28/19 01/28/19 [Tylenol w/codeine #3] Montelukast Sodium [Singulair] 10 mg PO HS 01/28/19 01/28/19 Pregabalin [Lyrica] 75 mg PO TID 01/28/19 01/28/19 Previous Rx's Medication Instructions Recorded Acyclovir [Zovirax] 400 mg PO BID #14 cap 02/01/19 Amoxicillin/Potassium Clav 1 tab PO Q12HR #10 tab 02/01/19 [Augmentin 875-125 Tablet] Apixaban [Eliquis] 5 mg PO BID #60 tab 02/01/19 Famotidine [Pepcid] 20 mg PO BID #20 tab 02/01/19 Fludrocortisone [Florinef] 0.1 mg PO DAILY #30 tab 02/01/19 Hydrocortisone [Cortef] 20 mg PO BID #30 tab 02/01/19 Allergies Allergy/AdvReac Type Severity Reaction Status Date / Time No Known Allergies Allergy Verified 01/28/19 11:11 Review of Systems ROS Statement: Those systems with pertinent positive or pertinent negative responses have been documented in the HPI. ROS Other: All systems not noted in ROS Statement are negative. Past Medical History Past Medical History: Coronary Artery Disease (CAD), Cancer, Diabetes Mellitus, Hypertension, Pneumonia Additional Past Medical History / Comment(s): lymphoma 4 times-yrs since chemo and radiation. Has a history of histoplasmosis which required the lung resection -HAS SOME SOB. hernia Last Myocardial Infarction Date:: unknown History of Any Multi-Drug Resistant Organisms: MRSA Date of last positivie culture/infection: 05/09/18 MDRO Source:: MRSA SPUTUM Past Surgical History: Cholecystectomy, Heart Catheterization With Stent, Hernia Repair Additional Past Surgical History / Comment(s): stem cell transplant/ LUNG RESECTION. 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 Past Anesthesia/Blood Transfusion Reactions: No Reported Reaction Additional Past Anesthesia/Blood Transfusion Reaction / Comment(s): no hx blood transfusion Date of Last Stent Placement:: 01-10-2013 Past Psychological History: No Psychological Hx Reported Smoking Status: Never smoker Past Alcohol Use History: None Reported Past Drug Use History: None Reported - Past Family History Mother Family Medical History: No Reported History Additional Family Medical History / Comment(s): Mother from a strangulated hernia at the age of 68yrs Father Additional Family Medical History / Comment(s): Father of a "ruptured" heart at the age of 72 yrs. General Exam Limitations: no limitations General appearance: alert, in no apparent distress Head exam: Present: atraumatic, normocephalic Eye exam: Present: normal appearance, PERRL, EOMI ENT exam: Present: normal oropharynx, mucous membranes moist Neck exam: Present: other (Trachea is in midline). Absent: tenderness, meningismus Respiratory exam: Present: normal lung sounds bilaterally. Absent: respiratory distress, wheezes, rales, rhonchi Cardiovascular Exam: Present: normal rhythm, tachycardia, normal heart sounds, other (Normal radial pulses bilaterally) GI/Abdominal exam: Present: soft, other (Mild generalized tenderness). Absent: distended, guarding, rebound Extremities exam: Absent: tenderness, pedal edema, calf tenderness Back exam: Absent: CVA tenderness (R), CVA tenderness (L) Neurological exam: Present: alert, oriented X3. Absent: motor sensory deficit Psychiatric exam: Present: normal affect, normal mood Skin exam: Present: warm, dry, intact, normal color Course Vital Signs 02/17/19 02/17/19 02/17/19 22:13 22:18 23:11 Temperature 100.9 F H Pulse Rate 108 H 121 H Pulse Rate [ 109 H Board Certified Behavioral Analyst ] Respiratory 18 18 Rate Blood Pressure 135/69 152/87 O2 Sat by Pulse 92 L 95 Oximetry 02/17/19 02/18/19 23:40 00:10 Temperature 101.4 F H Pulse Rate 112 H 116 H Pulse Rate [ Board Certified Behavioral Analyst ] Respiratory 18 19 Rate Blood Pressure 153/67 140/62 O2 Sat by Pulse 89 L 91 L Oximetry - Reevaluation(s) Reevaluation #1: 02/18/19 00:37 Case, H&P, test results and ED management were discussed with Dr. Waller. She accepts hospital admission. She has no further recommendations at this time. 02/18/19 00:51 Patient and family are aware of the patient's test results, and they all agree with hospital admission at this time. Patient continues to be breathing comfortably with borderline low oxygen saturations in the low 90s. Will increase the patient's O2 flow rate. EKG Findings - EKG Comments: EKG Findings:: Sinus tachycardia, ventricular rate of 110 bpm, no ectopy, incomplete right bundle branch block, normal RI and QRS intervals, normal QT interval, normal axis, no ST or T-wave abnormality Medical Decision Making - Medical Decision Making Given the patient's symptoms and test results/imaging findings, I suspect that the patient's fever, weakness and symptoms are likely secondary to pneumonia. Patient was treated with IV antibiotics for hospital-acquired pneumonia given that he was admitted to the hospital last month. Patient was also treated with IV fluids, oral potassium repletion and aspirin. Patient denies having any chest pain, and he has no acute ischemic EKG changes. I suspect that the patient's elevated troponin is likely secondary to his infectious process. Dr. Waller has accepted hospital admission. - Lab Data Result diagrams: 02/17/19 23:05 02/17/19 23:05 Lab Results 02/17/19 02/17/19 02/17/19 Range/Units 23: 23: 23:05 WBC 10.6 (3.8-10.6) k/uL RBC 4.50 (4.30-5.90) m/uL Hgb 13.8 (13.0-17.5) gm/dL Hct 40.6 (39.0-53.0) % MCV 90.2 (80.0-100.0) fL MCH 30.6 (25.0-35.0) pg MCHC 33.9 (31.0-37.0) g/dL RDW 13.7 (11.5-15.5) % Plt Count 248 (150-450) k/uL Neutrophils % (Manual) 65 % Band Neutrophils % 10 % Lymphocytes % (Manual) 16 % Monocytes % (Manual) 9 % Neutrophils # (Manual) 7.90 H (1.3-7.7) k/uL Lymphocytes # (Manual) 1.70 (1.0-4.8) k/uL Monocytes # (Manual) 0.95 (0-1.0) k/uL Nucleated RBCs 0 (0-0) /100 WBC Manual Slide Review Performed Toxic Granulation Present Toxic Vacuolation Present PT (9.0-12.0) sec INR (<1.2) APTT (22.0-30.0) sec Sodium 136 L (137-145) mmol/L Potassium 3.1 L (3.5-5.1) mmol/L Chloride 98 (98-107) mmol/L Carbon Dioxide 29 (22-30) mmol/L Anion Gap 9 mmol/L BUN 22 H (9-20) mg/dL Creatinine 0.99 (0.66-1.25) mg/dL Est GFR (CKD-EPI)AfAm 87 (>60 ml/min/1.73 sqM) Est GFR (CKD-EPI)NonAf 75 (>60 ml/min/1.73 sqM) Glucose 159 H (74-99) mg/dL Plasma Lactic Acid Ko 2.6 H* (0.7-2.0) mmol/L Calcium 8.9 (8.4-10.2) mg/dL Magnesium 1.2 L (1.6-2.3) mg/dL Total Bilirubin 0.8 (0.2-1.3) mg/dL AST 47 (17-59) U/L ALT 30 (4-49) U/L Alkaline Phosphatase 75 (38-126) U/L Troponin I (0.000-0.034) ng/mL NT-Pro-B Natriuret Pep pg/mL Total Protein 6.2 L (6.3-8.2) g/dL Albumin 3.7 (3.5-5.0) g/dL Urine Color Urine Appearance (Clear) Urine pH (5.0-8.0) Ur Specific [place] (1.001-1.035) Urine Protein (Negative) Urine Glucose (UA) (Negative) Urine Ketones (Negative) Urine Blood (Negative) Urine Nitrite (Negative) Urine Bilirubin (Negative) Urine Urobilinogen (<2.0) mg/dL Ur Leukocyte Esterase (Negative) Influenza Type A RNA (Not Detectd) Influenza Type B (PCR) (Not Detectd) 02/17/19 02/17/19 02/17/19 Range/Units 23:05 23:05 23:05 WBC (3.8-10.6) k/uL RBC (4.30-5.90) m/uL Hgb (13.0-17.5) gm/dL Hct (39.0-53.0) % MCV (80.0-100.0) fL MCH (25.0-35.0) pg MCHC (31.0-37.0) g/dL RDW (11.5-15.5) % Plt Count (150-450) k/uL Neutrophils % (Manual) % Band Neutrophils % % Lymphocytes % (Manual) % Monocytes % (Manual) % Neutrophils # (Manual) (1.3-7.7) k/uL Lymphocytes # (Manual) (1.0-4.8) k/uL Monocytes # (Manual) (0-1.0) k/uL Nucleated RBCs (0-0) /100 WBC Manual Slide Review Toxic Granulation Toxic Vacuolation PT 10.3 (9.0-12.0) sec INR 1.0 (<1.2) APTT 27.6 (22.0-30.0) sec Sodium (137-145) mmol/L Potassium (3.5-5.1) mmol/L Chloride (98-107) mmol/L Carbon Dioxide (22-30) mmol/L Anion Gap mmol/L BUN (9-20) mg/dL Creatinine (0.66-1.25) mg/dL Est GFR (CKD-EPI)AfAm (>60 ml/min/1.73 sqM) Est GFR (CKD-EPI)NonAf (>60 ml/min/1.73 sqM) Glucose (74-99) mg/dL Plasma Lactic Acid Ko (0.7-2.0) mmol/L Calcium (8.4-10.2) mg/dL Magnesium (1.6-2.3) mg/dL Total Bilirubin (0.2-1.3) mg/dL AST (17-59) U/L ALT (4-49) U/L Alkaline Phosphatase (38-126) U/L Troponin I 0.073 H* (0.000-0.034) ng/mL NT-Pro-B Natriuret Pep 1660 pg/mL Total Protein (6.3-8.2) g/dL Albumin (3.5-5.0) g/dL Urine Color Urine Appearance (Clear) Urine pH (5.0-8.0) Ur Specific [place] (1.001-1.035) Urine Protein (Negative) Urine Glucose (UA) (Negative) Urine Ketones (Negative) Urine Blood (Negative) Urine Nitrite (Negative) Urine Bilirubin (Negative) Urine Urobilinogen (<2.0) mg/dL Ur Leukocyte Esterase (Negative) Influenza Type A RNA (Not Detectd) Influenza Type B (PCR) (Not Detectd) 02/17/19 02/17/19 Range/Units 23:05 23:41 WBC (3.8-10.6) k/uL RBC (4.30-5.90) m/uL Hgb (13.0-17.5) gm/dL Hct (39.0-53.0) % MCV (80.0-100.0) fL MCH (25.0-35.0) pg MCHC (31.0-37.0) g/dL RDW (11.5-15.5) % Plt Count (150-450) k/uL Neutrophils % (Manual) % Band Neutrophils % % Lymphocytes % (Manual) % Monocytes % (Manual) % Neutrophils # (Manual) (1.3-7.7) k/uL Lymphocytes # (Manual) (1.0-4.8) k/uL Monocytes # (Manual) (0-1.0) k/uL Nucleated RBCs (0-0) /100 WBC Manual Slide Review Toxic Granulation Toxic Vacuolation PT (9.0-12.0) sec INR (<1.2) APTT (22.0-30.0) sec Sodium (137-145) mmol/L Potassium (3.5-5.1) mmol/L Chloride (98-107) mmol/L Carbon Dioxide (22-30) mmol/L Anion Gap mmol/L BUN (9-20) mg/dL Creatinine (0.66-1.25) mg/dL Est GFR (CKD-EPI)AfAm (>60 ml/min/1.73 sqM) Est GFR (CKD-EPI)NonAf (>60 ml/min/1.73 sqM) Glucose (74-99) mg/dL Plasma Lactic Acid Ko (0.7-2.0) mmol/L Calcium (8.4-10.2) mg/dL Magnesium (1.6-2.3) mg/dL Total Bilirubin (0.2-1.3) mg/dL AST (17-59) U/L ALT (4-49) U/L Alkaline Phosphatase (38-126) U/L Troponin I (0.000-0.034) ng/mL NT-Pro-B Natriuret Pep pg/mL Total Protein (6.3-8.2) g/dL Albumin (3.5-5.0) g/dL Urine Color Yellow Urine Appearance Clear (Clear) Urine pH 8.0 (5.0-8.0) Ur Specific [place] 1.015 (1.001-1.035) Urine Protein Trace H (Negative) Urine Glucose (UA) 3+ H (Negative) Urine Ketones Negative (Negative) Urine Blood Negative (Negative) Urine Nitrite Negative (Negative) Urine Bilirubin Negative (Negative) Urine Urobilinogen <2.0 (<2.0) mg/dL Ur Leukocyte Esterase Negative (Negative) Influenza Type A RNA Not Detected (Not Detectd) Influenza Type B (PCR) Not Detected (Not Detectd) - Radiology Data Radiology results: report reviewed (CT abdomen/pelvis with IV contrast: Bilateral lower lobe pulmonary airspace infiltrates and atelectasis, small pericardial effusion; chest x-ray: Bilateral patchy lower lobe pneumonia) Disposition Clinical Impression: Nausea and vomiting, Weakness, Pneumonia, Elevated troponin, Hypokalemia Disposition: ADMITTED IP TO THIS HOSP Condition: Stable Is patient prescribed a controlled substance at d/c from ED?: No Referrals: Angela Galindo MD [Primary Care Provider] - 1-2 days Time of Disposition: 00:37
[2019-02-17 23:18] LABS: Appearance,Urine Clear (Clear); Bilirubin,Urine Negative (Negative); Blood,Urine Negative (Negative); Color,Urine Yellow; Glucose,Urine (UA) 3+ (Negative); Ketones,Urine Negative (Negative); Leukocyte Esterase,Urine Negative (Negative); Nitrite,Urine Negative (Negative); Protein,Urine Trace (Negative); Specific Gravity,Urine 1.015 (1.001-1.035); Urobilinogen,Urine <2.0 mg/dL (<2.0)
[2019-02-17 23:26] LABS: Partial Thromboplastin Time 27.6 sec (22.0-30.0); Prothrombin Time 10.3 sec (9.0-12.0)
[2019-02-17 23:27] LABS: Albumin 3.7 g/dL (3.5-5.0); Calcium 8.9 mg/dL (8.4-10.2); Total Bilirubin 0.8 mg/dL (0.2-1.3); Total Protein 6.2 g/dL (6.3-8.2)
[2019-02-17 23:29] LABS: HCT 40.6 % (39.0-53.0); HGB 13.8 gm/dL (13.0-17.5); MCH 30.6 pg (25.0-35.0); MCHC 33.9 g/dL (31.0-37.0); MCV 90.2 fL (80.0-100.0); Mean Platelet Volume 7.6; Platelet Count 248 k/uL (150-450); RDW 13.7 % (11.5-15.5); WBC 10.6 k/uL (3.8-10.6)
[2019-02-17 23:32] LABS: Magnesium 1.2 mg/dL (1.6-2.3); Potassium 3.1 mmol/L (3.5-5.1)
--- NOTE | 2019-02-17 23:39 | XR ---
EXAMINATION TYPE: XR chest 2V DATE OF EXAM: 02/17/2019 COMPARISON: 02/13/2019 HISTORY: Pneumonia TECHNIQUE: FINDINGS: There is some coarse density in both lower lobes. There is multilevel upper thoracic spine fusion surgery. There is no heart failure. Heart appears slightly enlarged. There is slight blunting of costophrenic angles. IMPRESSION: Bilateral patchy lower lobe pneumonia and pleural reaction appears new compared to old ex am. No heart failure seen.
[2019-02-17 23:48] LABS: Band Neutrophils % 10 %; Monocytes # (M) 0.95 k/uL (0-1.0); Neutrophils % (M) 65 %; Nucleated Red Blood Cells 0 /100 WBC (0-0); Total Cells Counted 100
[2019-02-17 23:49] LABS: Toxic Granulation Present; Toxic Vacuolation Present
[2019-02-18] MEDS ORDERED: CEFEPIME 2 GM in SODIUM CHLORIDE 0.9% 100 ML IVPB ONE (00:12)
[2019-02-18] MEDS ORDERED: VANCOMYCIN IV PER PHARMACY 1 EACH MISC MISCELLANE STA (00:12)
[2019-02-18] MEDS ORDERED: ASPIRIN 81 MG PO STA (00:13)
[2019-02-18] MEDS ORDERED: POTASSIUM CHLORIDE ER 20 MEQ TAB.ER PO STA (00:14)
--- NOTE | 2019-02-18 00:14 | CT ---
EXAMINATION TYPE: CT abdomen pelvis w con DATE OF EXAM: 02/17/2019 COMPARISON: 01/31/2019 HISTORY: Abdominal pain, vomiting. CT DLP: 1500.3 mGycm Automated exposure control for dose reduction was used. CONTRAST: Performed with IV Contrast, patient injected with 100 mL of Isovue 300. There are bilateral extensive airspace infiltrates in both lower lobes. Heart is enlarged. There is s mall pericardial effusion. There is no pleural effusion. There are clips from cholecystectomy. Liver shows no focal defect. Spleen is intact. There is no pancreatic mass. Stomach is intact. There is sma ll hiatal hernia. There is no retroperitoneal adenopathy. There is low-density 4.5 cm right adrenal mass. Kidneys show satisfactory contrast opacification. There is no hydronephrosis. Ureters are not dilated. Bladder dis tends smoothly. There is retained fecal material in the rectum. There is no inguinal hernia. There is no free fluid in the pelvis. There is no mesenteric edema. There is no ascites or free air. There is mild lumbar levoscoliosis. I see no bony destructive process. There is L3-4 L4-5 spondylotic changes. There is no compression frac ture. Bony pelvis is intact. Delayed images show very little contrast in the renal collecting systems . There is bony spinal stenosis at L3-4 and L4-5. Appendix is not seen. IMPRESSION: Extensive bilateral lower lobe pulmonary airspace infiltrates and atelectasis. Small pericardial effu elvis. Pulmonary infiltrates similar to old exam. There is decrease in the pleural effusions compared to old exam. Decreased contrast in the kidneys on delayed images suggestive of some renal failure. No hydronephros is. Low-density right adrenal mass unchanged from recent exam but a change compared to old CT scan of 04/07. Metastatic disease is possible.
[2019-02-18] MEDS ORDERED: AZITHROMYCIN 500 MG in SODIUM CHLORIDE 0.9% 250 ML IVPB ONE (00:30)
[2019-02-18] MEDS ORDERED: ONDANSETRON 4 MG/2 ML VIAL IVP PRN (00:40)
[2019-02-18] MEDS ORDERED: ACETAMINOPHEN TAB 325 MG TAB PO PRN (00:40)
[2019-02-18] MEDS: SODIUM CHLORIDE 0.9% 1,000 ML IV SCH ×3 (00:51→17:15)
[2019-02-18] MEDS ORDERED: SODIUM CHLORIDE 0.9% 1,000 ML IV ONE ×5 (00:51→16:58)
[2019-02-18] MEDS ORDERED: VANCOMYCIN 1,500 MG in SODIUM CHLORIDE 0.9% 250 ML IVPB ONE (01:00)
[2019-02-18] MEDS: NOREPINEPHRINE 32 MG in SODIUM CHLORIDE 0.9% 218 ML IV SCH ×3 (03:13→22:08)
--- NOTE | 2019-02-18 03:33 | ED ---
Medical Decision Making - Medical Decision Making The patient was endorsed to me at shift change. This elderly gentleman presented short of breath tachycardic tachypneic and febrile sepsis workup was initiated patient was determined be septic due to pneumonia. She was subsequently admitted to the medicine service for treatment of healthcare associated pneumonia. Patient was remaining in the emergency department pending bed placement when he became hypotensive and somewhat altered. Decision was made to place the patient on levothyroid. A right IJ central line was placed later found was initiated. I felt the patient would benefit from sedation and intubation due to persistent tachycardia hypotension and hypoxia however upon speaking with the patient's she confirmed that the patient would not want to be intubated. He is okay for medications and other supportive measures but no intubation. After central line was placed patient care was discussed with admitting room service waiter/waitress Dr. Conde who agrees with plan for admission to the intensive care unit for septic shock secondary to pneumonia. Critical Care Time 30 Critical care time was exclusive of separately billable procedures and treating other patients and teaching time. Critical care was necessary to treat or prevent imminent or life-threatening deterioration. Given the critical condition in which the patient arrived, the patient was immediately assessed by myself and the nurse, and cardiac monitoring initiated due to the potential for rapid decompensation of the patient's clinical condition. During the course of the patients stay, I spent a considerable amount of time at the bedside performing serial re-evaluations of the patient's hemodynamic and clinical status because of the recognized potential threat to life or limb in this condition. I then had a chance to review not only all of the available current laboratory and radiographic studies obtained today, but I also reviewed old records available to me at the time. Additionally, any ancillary information available including pharmacometrician records were reviewed. Sequential vital signs were obtained. - Lab Data Result diagrams: 02/17/19 23:05 02/17/19 23:05 Lab Results 02/17/19 02/17/19 02/17/19 Range/Units 23: 23: 23:05 WBC 10.6 (3.8-10.6) k/uL RBC 4.50 (4.30-5.90) m/uL Hgb 13.8 (13.0-17.5) gm/dL Hct 40.6 (39.0-53.0) % MCV 90.2 (80.0-100.0) fL MCH 30.6 (25.0-35.0) pg MCHC 33.9 (31.0-37.0) g/dL RDW 13.7 (11.5-15.5) % Plt Count 248 (150-450) k/uL Neutrophils % (Manual) 65 % Band Neutrophils % 10 % Lymphocytes % (Manual) 16 % Monocytes % (Manual) 9 % Neutrophils # (Manual) 7.90 H (1.3-7.7) k/uL Lymphocytes # (Manual) 1.70 (1.0-4.8) k/uL Monocytes # (Manual) 0.95 (0-1.0) k/uL Nucleated RBCs 0 (0-0) /100 WBC Manual Slide Review Performed Toxic Granulation Present Toxic Vacuolation Present PT (9.0-12.0) sec INR (<1.2) APTT (22.0-30.0) sec Sodium 136 L (137-145) mmol/L Potassium 3.1 L (3.5-5.1) mmol/L Chloride 98 (98-107) mmol/L Carbon Dioxide 29 (22-30) mmol/L Anion Gap 9 mmol/L BUN 22 H (9-20) mg/dL Creatinine 0.99 (0.66-1.25) mg/dL Est GFR (CKD-EPI)AfAm 87 (>60 ml/min/1.73 sqM) Est GFR (CKD-EPI)NonAf 75 (>60 ml/min/1.73 sqM) Glucose 159 H (74-99) mg/dL Lactic Ac Sepsis Rflx Plasma Lactic Acid Ko 2.6 H* (0.7-2.0) mmol/L Calcium 8.9 (8.4-10.2) mg/dL Magnesium 1.2 L (1.6-2.3) mg/dL Total Bilirubin 0.8 (0.2-1.3) mg/dL AST 47 (17-59) U/L ALT 30 (4-49) U/L Alkaline Phosphatase 75 (38-126) U/L Troponin I (0.000-0.034) ng/mL NT-Pro-B Natriuret Pep pg/mL Total Protein 6.2 L (6.3-8.2) g/dL Albumin 3.7 (3.5-5.0) g/dL Urine Color Urine Appearance (Clear) Urine pH (5.0-8.0) Ur Specific [place] (1.001-1.035) Urine Protein (Negative) Urine Glucose (UA) (Negative) Urine Ketones (Negative) Urine Blood (Negative) Urine Nitrite (Negative) Urine Bilirubin (Negative) Urine Urobilinogen (<2.0) mg/dL Ur Leukocyte Esterase (Negative) Influenza Type A RNA (Not Detectd) Influenza Type B (PCR) (Not Detectd) 02/17/19 02/17/19 02/17/19 Range/Units 23:05 23:05 23:05 WBC (3.8-10.6) k/uL RBC (4.30-5.90) m/uL Hgb (13.0-17.5) gm/dL Hct (39.0-53.0) % MCV (80.0-100.0) fL MCH (25.0-35.0) pg MCHC (31.0-37.0) g/dL RDW (11.5-15.5) % Plt Count (150-450) k/uL Neutrophils % (Manual) % Band Neutrophils % % Lymphocytes % (Manual) % Monocytes % (Manual) % Neutrophils # (Manual) (1.3-7.7) k/uL Lymphocytes # (Manual) (1.0-4.8) k/uL Monocytes # (Manual) (0-1.0) k/uL Nucleated RBCs (0-0) /100 WBC Manual Slide Review Toxic Granulation Toxic Vacuolation PT 10.3 (9.0-12.0) sec INR 1.0 (<1.2) APTT 27.6 (22.0-30.0) sec Sodium (137-145) mmol/L Potassium (3.5-5.1) mmol/L Chloride (98-107) mmol/L Carbon Dioxide (22-30) mmol/L Anion Gap mmol/L BUN (9-20) mg/dL Creatinine (0.66-1.25) mg/dL Est GFR (CKD-EPI)AfAm (>60 ml/min/1.73 sqM) Est GFR (CKD-EPI)NonAf (>60 ml/min/1.73 sqM) Glucose (74-99) mg/dL Lactic Ac Sepsis Rflx Plasma Lactic Acid Ko (0.7-2.0) mmol/L Calcium (8.4-10.2) mg/dL Magnesium (1.6-2.3) mg/dL Total Bilirubin (0.2-1.3) mg/dL AST (17-59) U/L ALT (4-49) U/L Alkaline Phosphatase (38-126) U/L Troponin I 0.073 H* (0.000-0.034) ng/mL NT-Pro-B Natriuret Pep 1660 pg/mL Total Protein (6.3-8.2) g/dL Albumin (3.5-5.0) g/dL Urine Color Urine Appearance (Clear) Urine pH (5.0-8.0) Ur Specific [place] (1.001-1.035) Urine Protein (Negative) Urine Glucose (UA) (Negative) Urine Ketones (Negative) Urine Blood (Negative) Urine Nitrite (Negative) Urine Bilirubin (Negative) Urine Urobilinogen (<2.0) mg/dL Ur Leukocyte Esterase (Negative) Influenza Type A RNA (Not Detectd) Influenza Type B (PCR) (Not Detectd) 02/17/19 02/17/19 02/17/19 Range/Units 23:05 23:34 23:41 WBC (3.8-10.6) k/uL RBC (4.30-5.90) m/uL Hgb (13.0-17.5) gm/dL Hct (39.0-53.0) % MCV (80.0-100.0) fL MCH (25.0-35.0) pg MCHC (31.0-37.0) g/dL RDW (11.5-15.5) % Plt Count (150-450) k/uL Neutrophils % (Manual) % Band Neutrophils % % Lymphocytes % (Manual) % Monocytes % (Manual) % Neutrophils # (Manual) (1.3-7.7) k/uL Lymphocytes # (Manual) (1.0-4.8) k/uL Monocytes # (Manual) (0-1.0) k/uL Nucleated RBCs (0-0) /100 WBC Manual Slide Review Toxic Granulation Toxic Vacuolation PT (9.0-12.0) sec INR (<1.2) APTT (22.0-30.0) sec Sodium (137-145) mmol/L Potassium (3.5-5.1) mmol/L Chloride (98-107) mmol/L Carbon Dioxide (22-30) mmol/L Anion Gap mmol/L BUN (9-20) mg/dL Creatinine (0.66-1.25) mg/dL Est GFR (CKD-EPI)AfAm (>60 ml/min/1.73 sqM) Est GFR (CKD-EPI)NonAf (>60 ml/min/1.73 sqM) Glucose (74-99) mg/dL Lactic Ac Sepsis Rflx Y Plasma Lactic Acid Ko (0.7-2.0) mmol/L Calcium (8.4-10.2) mg/dL Magnesium (1.6-2.3) mg/dL Total Bilirubin (0.2-1.3) mg/dL AST (17-59) U/L ALT (4-49) U/L Alkaline Phosphatase (38-126) U/L Troponin I (0.000-0.034) ng/mL NT-Pro-B Natriuret Pep pg/mL Total Protein (6.3-8.2) g/dL Albumin (3.5-5.0) g/dL Urine Color Yellow Urine Appearance Clear (Clear) Urine pH 8.0 (5.0-8.0) Ur Specific [place] 1.015 (1.001-1.035) Urine Protein Trace H (Negative) Urine Glucose (UA) 3+ H (Negative) Urine Ketones Negative (Negative) Urine Blood Negative (Negative) Urine Nitrite Negative (Negative) Urine Bilirubin Negative (Negative) Urine Urobilinogen <2.0 (<2.0) mg/dL Ur Leukocyte Esterase Negative (Negative) Influenza Type A RNA Not Detected (Not Detectd) Influenza Type B (PCR) Not Detected (Not Detectd) Disposition Clinical Impression: Nausea and vomiting, Weakness, Pneumonia, Elevated troponin, Hypokalemia Disposition: ADMITTED IP TO THIS HOSP Condition: Stable Procedures - Central Line Placement Right IJ Consent Obtained: verbal consent Patient Placed on Monitor/Pulse Ox: Yes Prep: mask, gown, gloves Central Line Prep: Chlorhexidine scrub, sterile drapes applied Local Anesthesia Used: Lidocaine 1% Amount of Anesthesia Used (mls): 3 Ultrasound Used for Placement: Yes Central Line Lumen Inserted: triple Bloods Obtained for Lab: Yes Central Line Position: good blood return, all ports aspirated, flushed, capped, sutured in place with 3-0 nylon Dressing Applied: Tegaderm
--- NOTE | 2019-02-18 03:59 | XR ---
EXAMINATION TYPE: XR chest 1V portable DATE OF EXAM: 02/18/2019 COMPARISON: Yesterday HISTORY: Central line placement TECHNIQUE: FINDINGS: There is pulmonary edema. Heart is enlarged. There is right jugular catheter with the tip i n the superior vena cava. There are chest leads. There is blunting of the costophrenic angles. IMPRESSION: Congestive heart failure with pleural effusions that appears worse than yesterday.
[2019-02-18 04:06] LABS: Glucose,Whole Blood 115 mg/dL (75-99)
[2019-02-18] MEDS ORDERED: NALOXONE 0.4 MG/ML 1 ML VIAL IV PRN (05:05)
[2019-02-18 05:17] LABS: Appearance,Urine Clear (Clear); Bilirubin,Urine Negative (Negative); Blood,Urine Negative (Negative); Color,Urine Yellow; Glucose,Urine (UA) 3+ (Negative); Ketones,Urine Negative (Negative); Leukocyte Esterase,Urine Negative (Negative); Nitrite,Urine Negative (Negative); PH, Urine 7.5 (5.0-8.0); Protein,Urine Trace (Negative); Specific Gravity,Urine 1.018 (1.001-1.035); Urobilinogen,Urine <2.0 mg/dL (<2.0)
[2019-02-18 05:44] LABS: ABG Base Excess -2.2 mmol/L; ABG HCO3 23 mmol/L (21-25); ABG Oxygen Saturation 80.2 % (94-97); ABG PCO2 37 mmHg (35-45); ABG TCO2 24 mmol/L (19-24); Allen Test Performed? Yes
[2019-02-18 05:53] LABS: Glucose,Whole Blood 130 mg/dL (75-99)
[2019-02-18 05:53] LABS: ABG PO2 46 mmHg (83-108)
[2019-02-18] MEDS ORDERED: HYDROCORTISONE SUCCINATE 100 MG/2 ML VIAL IV STA ×2 (06:06→16:44)
[2019-02-18] MEDS: INSULIN ASPART (NovoLOG) 100 UNIT/ML VIAL SQ SCH ×4 (06:13→23:16)
[2019-02-18 06:26] LABS: HCT 36.8 % (39.0-53.0); HGB 12.2 gm/dL (13.0-17.5); MCH 30.5 pg (25.0-35.0); MCHC 33.2 g/dL (31.0-37.0); MCV 91.9 fL (80.0-100.0); Mean Platelet Volume 9.2; Platelet Count 225 k/uL (150-450); RDW 13.9 % (11.5-15.5); WBC 6.4 k/uL (3.8-10.6)
[2019-02-18 06:29] LABS: Calcium 7.4 mg/dL (8.4-10.2); Potassium 3.3 mmol/L (3.5-5.1)
[2019-02-18] MEDS ORDERED: ACETAMINOPHEN IV (For NPO) 1,000 MG in EMPTY BAG 1 BAG IVPB PRN (06:30)
[2019-02-18] MEDS ORDERED: Potassium Replacement Protocol 1 EACH MISC MISCELLANE PRN (06:31)
[2019-02-18] MEDS: POTASSIUM CHLORIDE 20 MEQ in WATER FOR INJECTION 1 100ML.BAG IVPB SCH ×2 (06:41→09:02)
[2019-02-18 06:47] LABS: Band Neutrophils % 38 %; Eosinophils # (M) 0.06 k/uL (0-0.7); Lymphocytes # (M) 1.47 k/uL (1.0-4.8); Metamyelocytes # (M) 0.13 k/uL (0); Metamyelocytes % 2 %; Monocytes # (M) 0.19 k/uL (0-1.0); Neutrophils % (M) 33 %; Nucleated Red Blood Cells 0 /100 WBC (0-0); Total Cells Counted 200
[2019-02-18 06:48] LABS: Anisocytosis (M) Present; Ovalocytes Present; Poikilocytosis (M) Present
[2019-02-18] MEDS ORDERED: LEVOFLOXACIN 750MG-D5W PMX 750 MG in DEXTROSE/WATER 1 150ML.BAG IVPB SCH (07:00)
[2019-02-18] MEDS: SODIUM CHLORIDE 0.9% 150 ML with VASOPRESSIN 60 UNIT IV SCH ×14 (07:41→19:15)
[2019-02-18 08:32] LABS: HCT 43.6 % (39.0-53.0); Hypochromasia Slight; MCHC 32.2 g/dL (31.0-37.0); MCV 96.2 fL (80.0-100.0); Mean Platelet Volume 7.6; Platelet Count 274 k/uL (150-450); RBC 4.53 m/uL (4.30-5.90); WBC 20.5 k/uL (3.8-10.6)
[2019-02-18 08:45] LABS: Calcium 7.5 mg/dL (8.4-10.2); Potassium 3.7 mmol/L (3.5-5.1)
[2019-02-18] MEDS ORDERED: APIXABAN 5 MG TAB PO SCH (09:00)
[2019-02-18] MEDS ORDERED: FAMOTIDINE 20 MG TAB PO SCH (09:00)
[2019-02-18] MEDS: PANTOPRAZOLE 40 MG/10 ML VIAL IV SCH (09:02)
[2019-02-18] MEDS ORDERED: Magnesium Replacement Protocol 1 EACH MISC MISCELLANE PRN (09:19)
[2019-02-18] MEDS: MAGNESIUM SULFATE-D5W PMX 1 GM in DEXTROSE/WATER 1 100ML.BAG IVPB SCH ×4 (09:33→15:48)
[2019-02-18 10:37] LABS: ABG Base Excess -10.4 mmol/L; ABG HCO3 16 mmol/L (21-25); ABG Oxygen Saturation 94.3 % (94-97); ABG PCO2 35 mmHg (35-45); ABG PH 7.28 (7.35-7.45); ABG PO2 79 mmHg (83-108); ABG TCO2 17 mmol/L (19-24); Allen Test Performed? Yes
[2019-02-18] MEDS ORDERED: SODIUM BICARB 8.4% 50 ML SYR (1 MEQ/ML) IV STA ×4 (10:50→21:35)
[2019-02-18 11:04] LABS: Band Neutrophils % 20 %; Lymphocytes # (M) 5.54 k/uL (1.0-4.8); Monocytes # (M) 0.82 k/uL (0-1.0); Neutrophils % (M) 49 %; Nucleated Red Blood Cells 0 /100 WBC (0-0); Total Cells Counted 100
[2019-02-18 11:06] LABS: Poikilocytosis (M) Present; Toxic Granulation Present
--- NOTE | 2019-02-18 11:45 | P.CNPUL ---
History of Present Illness Consult date: 02/18/19 Reason for consult: pneumonia, other (Sepsis and septic shock) Chief complaint: Fever, nausea vomiting and weakness History of present illness: This is a 73-year-old white male, familiar to my service, patient was admitted to the hospital on 01/28/2019, and discharged home on 02/01/2019. Patient was admitted with aspiration pneumonia, hypertension, atrial fibrillation with RVR requiring cardioversion, and at that time he was found to have adrenal hematoma. And felt that the patient may have adrenal insufficiency. All the issues where addressed, patient was in the ICU for a few days, and he turned around nicely. And he was supposedly discharged home on Lasix, aspirin, metformin, metoprolol, atorvastatin, insulin, albuterol with Atrovent updrafts, Lyrica, Singulair, Zovirax, Augmentin, Eliquis, Florinef, and hydrocortisone/Cortef 20 mg by mouth twice a day. Apparently the patient was advised to have follow-up with his primary care physician and follow-up with me. I saw this patient 2 days ago, and he was doing extremely well. His chest x-ray was reassuring and this was last week. Apparently over the weekend, the patient developed multiple confusional symptoms including low-grade fever, nausea, vomiting, weakness, and shortness of breath. Patient was noted to have hypotension in the ER. He had lactic acidosis, and clinically was septic. Central line was placed by the ER physician, placed empirically on antibiotics in the form of cefepime, Levaquin, and vancomycin. Chest x-ray showed bilateral infiltrates. Patient was given Solu-Cortef early this morning, and looking at the notes, patient may have stopped his Cortef and apparently he did not have a follow-up with endocrinology because of his adrenal insufficiency and all felt to be related to his renal hematoma. His condition deteriorated overnight, patient was admitted to the ICU on BiPAP with 100% FiO2, IPAP of 14, EPAP of 6, and his initial ABG showed significant metabolic acidosis and the relative hypoxemia. The patient received bicarb. Received more Solu-Cortef, and kept on antibiotics as well as IV fluids. CVP is about 8 at present. After evaluating the patient, a left radial arterial line was placed for blood pressure monitoring. And the patient was on norepinephrine initially at 0.7 mcg/kg/m. This is now being titrated. Looking back at his last admission, patient had a similar presentation with hypotension, however he responded well to Solu-Cortef and Florinef. I have a feeling that his Florinef and his Cortef will discontinued on outpatient basis somewhere along the line either by his primary care physician or by the wafer substrate tester. Review of Systems Constitutional: Low-grade fever, no weakness, fatigue, Eyes: denies blurred vision, denies pain Ears, nose, mouth and throat: Denies headache, Denies sore throat Cardiovascular: Denies chest pain, denies cough but has shortness of breath. Respiratory: Denies cough, has shortness of breath mostly. And low-grade fever Gastrointestinal: Denies abdominal pain, complaining of intermittent episodes of nausea and vomiting on presentation. No melena no hematemesis. Musculoskeletal: Denies myalgias has mostly generalized weakness., Integumentary: Denies pruritus, Denies rash Neurological Denies headache blurred vision dizziness. Psychiatric: Denies anxiety, Denies depression Endocrine: Chronic fatigue and weakness. Past Medical History Past Medical History: Coronary Artery Disease (CAD), Cancer, Diabetes Mellitus, Hypertension, Pneumonia Additional Past Medical History / Comment(s): lymphoma 4 times-yrs since chemo and radiation. Has a history of histoplasmosis which required the lung resection -HAS SOME SOB. hernia Last Myocardial Infarction Date:: unknown History of Any Multi-Drug Resistant Organisms: MRSA Date of last positivie culture/infection: 05/09/18 MDRO Source:: MRSA SPUTUM Past Surgical History: Cholecystectomy, Heart Catheterization With Stent, Hernia Repair Additional Past Surgical History / Comment(s): stem cell transplant/ LUNG RE SECTION. 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 Past Anesthesia/Blood Transfusion Reactions: No Reported Reaction Additional Past Anesthesia/Blood Transfusion Reaction / Comment(s): no hx blood transfusion Date of Last Stent Placement:: 01-10-2013 Past Psychological History: No Psychological Hx Reported Additional Psychological History / Comment(s): Pt resides with his spouse. He uses no assistive device. He drives. Smoking Status: Never smoker Past Alcohol Use History: None Reported Past Drug Use History: None Reported - Past Family History Mother Family Medical History: No Reported History Additional Family Medical History / Comment(s): Mother from a strangulated hernia at the age of 68yrs Father Additional Family Medical History / Comment(s): Father of a "ruptured" heart at the age of 72 yrs. Medications and Allergies Home Medications Medication Instructions Recorded Confirmed Type Furosemide [Lasix] 20 mg PO DAILY 08/25/16 01/28/19 History Aspirin [Adult Low Dose Aspirin EC] 81 mg PO DAILY 10/27/16 01/28/19 History Multivit-Min/FA/Lycopen/Lutein 1 tab PO DAILY 07/26/17 01/28/19 History [Centrum Silver Men Tablet] metFORMIN HCL [Glucophage] 500 mg PO AC-BID 07/26/17 01/28/19 History Metoprolol Tartrate [Lopressor] 12.5 mg PO BID 09/15/17 01/28/19 History Atorvastatin [Lipitor] 40 mg PO DAILY 04/30/18 01/28/19 History Insulin Glargine,Hum.rec.anlog 24 units SQ HS 04/30/18 01/28/19 History [Toujeo Solostar] Ipratropium-Albuterol Nebulize 3 ml INHALATION RT-Q6H PRN 05/08/18 01/28/19 Hi story [Duoneb 0.5 mg-3 mg/3 ml Soln] Potassium Chloride ER [K-Dur 10] 10 meq PO DAILY 05/08/18 01/28/19 History Acetaminophen-Codeine 300-30mg 1 - 2 tab PO Q4HR PRN 01/28/19 01/28/19 History [Tylenol w/codeine #3] Montelukast Sodium [Singulair] 10 mg PO HS 01/28/19 01/28/19 History Pregabalin [Lyrica] 75 mg PO TID 01/28/19 01/28/19 History Acyclovir [Zovirax] 400 mg PO BID #14 cap 02/01/19 Rx Amoxicillin/Potassium Clav 1 tab PO Q12HR #10 tab 02/01/19 Rx [Augmentin 875-125 Tablet] Apixaban [Eliquis] 5 mg PO BID #60 tab 02/01/19 Rx Famotidine [Pepcid] 20 mg PO BID #20 tab 02/01/19 Rx Fludrocortisone [Florinef] 0.1 mg PO DAILY #30 tab 02/01/19 Rx Hydrocortisone [Cortef] 20 mg PO BID #30 tab 02/01/19 Rx Allergies Allergy/AdvReac Type Severity Reaction Status Date / Time No Known Allergies Allergy Verified 01/28/19 11:11 Physical Exam Vitals: Vital Signs Temp Pulse Pulse Resp BP Pulse Ox 02/18/19 07:00 131 H 27 H 94/80 96 02/18/19 06:45 131 H 28 H 104/44 97 02/18/19 06:30 131 H 30 H 89/41 89 L 02/18/19 06:15 131 H 30 H 87/53 91 L 02/18/19 06:00 129 H 20 74/46 88 L 02/18/19 05:45 121 H 21 71/44 82 L 02/18/19 05:30 124 H 29 H 85/46 88 L 02/18/19 05:15 115 H 28 H 83/46 87 L 02/18/19 05:00 123 H 22 90/45 90 L 02/18/19 04:45 122 H 25 H 91/44 90 L 02/18/19 04:30 122 H 22 92/46 87 L 02/18/19 04:15 124 H 20 96/52 91 L 02/18/19 04:05 121 H 23 77 L 02/18/19 03:24 126 H 20 80/46 90 L 02/18/19 02:30 124 H 20 78/48 88 L 02/18/19 02:27 99.8 F H 120 H 18 78/50 92 L 02/18/19 02:00 114 H 20 80/43 92 L 02/18/19 01:30 124 H 20 124/60 91 L 02/18/19 01:00 112 H 20 89/52 95 02/18/19 00:30 117 H 19 120/58 91 L 02/18/19 00:13 118 H 19 140/62 90 L 02/18/19 00:10 101.4 F H 116 H 19 140/62 91 L 02/17/19 23:40 112 H 18 153/67 89 L 02/17/19 23:11 121 H 18 152/87 95 02/17/19 22:18 109 H 02/17/19 22:13 100.9 F H 108 H 18 135/69 92 L Intake and Output 02/17/19 02/18/19 02/18/19 22:59 06:59 14:59 Intake Total 24.404 33.822 Output Total 800 40 Balance -775.596 -6.178 Intake: Intake, IV Titration 24.404 33.822 Amount Norepinephrine 32 mg In 24.404 33.822 Sodium Chloride 0.9% 218 ml @ 0.05 MCG/KG/MIN 1. 701 mls/hr IV .Q24H [facility] Rx#:[id number] Output: Urine 800 40 Other: Voiding Method Indwelling Catheter Weight 72.575 kg 80.9 kg GENERAL EXAM: Revealed 73-year-old white male awake, alert oriented 3, on BiPAP, noted to be dyspneic. HEAD: Normocephalic/atraumatic. EYES: Normal reaction of pupils, equal size. Conjunctiva pink, sclera white. NOSE: Clear with pink turbinates. THROAT: No erythema or exudates. NECK: No masses, no JVD, no thyroid enlargement, no adenopathy. CHEST: No chest wall deformity. Symmetrical expansion. LUNGS: Equal air entry crackles and rhonchi at the bases bilaterally. CVS: Tachycardic, normal S1 and S2, 2/6 systolic murmur throughout the precordium. ABDOMEN: Soft, nontender. No hepatosplenomegaly, normal bowel sounds, no guarding or rigidity. EXTREMITIES: No clubbing, no edema, no cyanosis, 2+ pulses and upper and lower extremities. MUSCULOSKELETAL: Muscle strength and tone normal. SPINE: No scoliosis or deformity SKIN: No rashes CENTRAL NERVOUS SYSTEM: Alert and oriented -3. No focal deficits, tone is normal in all 4 extremities. PSYCHIATRIC: Alert and oriented -3. Appropriate affect. Intact judgment and insight. Results - Laboratory Findings CBC and BMP: 02/18/19 08:08 02/18/19 08:08 ABG ABG pH 7.28 (7.35-7.45) L 02/18/19 10:31 ABG pCO2 35 mmHg (35-45) 02/18/19 10:31 ABG pO2 79 mmHg (83-108) L 02/18/19 10:31 ABG O2 Saturation 94.3 % (94-97) 02/18/19 10:31 PT/INR, D-dimer PT 10.3 sec (9.0-12.0) 02/17/19 23:05 INR 1.0 (<1.2) 02/17/19 23:05 Abnormal lab findings: Abnormal Labs 02/17/19 02/17/19 02/17/19 23:05 23:05 23:05 WBC RBC Hgb Hct Neutrophils # (Manual) 7.90 H Lymphocytes # (Manual) Metamyelocytes # (Man) ABG pH ABG pO2 ABG HCO3 ABG Total CO2 ABG O2 Saturation Sodium 136 L Potassium 3.1 L Chloride Carbon Dioxide BUN 22 H Creatinine Glucose 159 H POC Glucose (mg/dL) Plasma Lactic Acid Ko 2.6 H* Calcium Magnesium 1.2 L Troponin I Total Protein 6.2 L Urine Protein Urine Glucose (UA) 02/17/19 02/17/19 02/18/19 23:05 23:05 03:17 WBC RBC Hgb Hct Neutrophils # (Manual) Lymphocytes # (Manual) Metamyelocytes # (Man) ABG pH ABG pO2 ABG HCO3 ABG Total CO2 ABG O2 Saturation Sodium Potassium Chloride Carbon Dioxide BUN Creatinine Glucose POC Glucose (mg/dL) Plasma Lactic Acid Ko Calcium Magnesium Troponin I 0.073 H* 0.233 H* Total Protein Urine Protein Trace H Urine Glucose (UA) 3+ H 02/18/19 02/18/19 02/18/19 03:17 03:17 03:17 WBC RBC 4.00 L Hgb 12.2 L Hct 36.8 L Neutrophils # (Manual) Lymphocytes # (Manual) Metamyelocytes # (Man) 0.13 H ABG pH ABG pO2 ABG HCO3 ABG Total CO2 ABG O2 Saturation Sodium Potassium 3.3 L Chloride Carbon Dioxide BUN 22 H Creatinine Glucose 134 H POC Glucose (mg/dL) Plasma Lactic Acid Ko 2.4 H* Calcium 7.4 L Magnesium Troponin I Total Protein Urine Protein Urine Glucose (UA) 02/18/19 02/18/19 02/18/19 04:04 04:30 05:42 WBC RBC Hgb Hct Neutrophils # (Manual) Lymphocytes # (Manual) Metamyelocytes # (Man) ABG pH ABG pO2 46 L* ABG HCO3 ABG Total CO2 ABG O2 Saturation 80.2 L Sodium Potassium Chloride Carbon Dioxide BUN Creatinine Glucose POC Glucose (mg/dL) 115 H Plasma Lactic Acid Ko Calcium Magnesium Troponin I Total Protein Urine Protein Trace H Urine Glucose (UA) 3+ H 02/18/19 02/18/19 02/18/19 05:52 08:08 08:08 WBC 20.5 H RBC Hgb Hct Neutrophils # (Manual) 14.10 H Lymphocytes # (Manual) 5.54 H Metamyelocytes # (Man) ABG pH ABG pO2 ABG HCO3 ABG Total CO2 ABG O2 Saturation Sodium Potassium Chloride 108 H Carbon Dioxide 16 L BUN 21 H Creatinine 1.50 H Glucose 169 H POC Glucose (mg/dL) 130 H Plasma Lactic Acid Ko Calcium 7.5 L Magnesium 1.0 L Troponin I Total Protein Urine Protein Urine Glucose (UA) 02/18/19 02/18/19 08:08 10:31 WBC RBC Hgb Hct Neutrophils # (Manual) Lymphocytes # (Manual) Metamyelocytes # (Man) ABG pH 7.28 L ABG pO2 79 L ABG HCO3 16 L ABG Total CO2 17 L ABG O2 Saturation Sodium Potassium Chloride Carbon Dioxide BUN Creatinine Glucose POC Glucose (mg/dL) Plasma Lactic Acid Ko 6.8 H* Calcium Magnesium Troponin I Total Protein Urine Protein Urine Glucose (UA) - Diagnostic Findings Chest x-ray: image reviewed (Diffuse interstitial infiltrates and pleural effusions noted.) Additional studies: CT of the abdomen and pelvis showed 4.5 cm right adrenal mass Assessment and Plan Assessment: Impression: 1 sepsis and septic shock, most likely secondary to pneumonia. 2 profound hypotension secondary to sepsis, septic shock, and strongly suspect primary adrenal insufficiency. 3 acute hypoxic respiratory failure secondary to pneumonia and sepsis. 4 acute kidney injury secondary to hypotension 5 history of herpetic neuralgia 6 history of paroxysmal atrial fibrillation 7 history of coronary artery disease and previous stenting 8 history of lymphoma status post stem cell transplant 9 history of adrenal hemorrhage or adrenal mass needs to be further evaluated on outpatient basis 10 history of histoplasmosis and previous lung resection 11 history of MRSA pneumonia 12 suspect some component of interstitial lung disease/pulmonary fibrosis 13 history of depression. Recommendation: Continue BiPAP, titrate FiO2 accordingly to keep O2 saturation above 90% presently on IPAP of 14 and EPAP of 6 and 100% FiO2. Continue antibiotics, broad-spectrum until cultures are available. Continue Solu-Cortef at 100 mg IV push every 8 hours Continue pressors and IV fluids Continue GI and DVT prophylaxis Resume home meds including Eliquis and atorvastatin Continue to monitor closely in the intensive care unit. Discussed his condition with him and his , patient may end up deteriorating requiring ventilatory support, however at this point he seems to be making a bit of improvement with fluids, pressors, and antibiotics. As well as Solu-Cortef. Prognosis is extremely guarded. We'll continue to follow. Critical care time is 45 minutes, not including time spent on arterial line placement. Time with Patient: Greater than 30
[2019-02-18 11:48] LABS: Glucose,Whole Blood 219 mg/dL (75-99)
--- NOTE | 2019-02-18 12:08 | PCN ---
PROCEDURE NOTE Placement of a left radial arterial line. PREOPERATIVE DIAGNOSIS: Sepsis. POSTOPERATIVE DIAGNOSIS: Sepsis. ANESTHESIA: None deployed. PROCEDURE: The left wrist was prepared in a sterile fashion and drapes were applied. The left radial artery was palpated, cannulated, and a guidewire was placed. A Cook catheter was inserted over the guidewire, and the guidewire was removed. Good blood flow and good waveform were noted. The line was secured using 3.0 silk sutures. Again, no evidence of any immediate complications. MMODL / IJN: [id number] /
[2019-02-18 12:30] LABS: Glucose,Whole Blood 219 mg/dL (75-99)
[2019-02-18] MEDS: CEFEPIME 2 GM in SODIUM CHLORIDE 0.9% 100 ML IVPB SCH (12:31)
[2019-02-18] MEDS: VANCOMYCIN 1,500 MG in SODIUM CHLORIDE 0.9% 250 ML IVPB SCH ×2 (12:31→23:15)
[2019-02-18] MEDS ORDERED: MORPHINE SULFATE 2 MG/ML SYRINGE IVP PRN ×2 (12:45)
[2019-02-18 14:24] LABS: Glucose,Whole Blood 234 mg/dL (75-99)
[2019-02-18] MEDS ORDERED: SUCCINYLCHOLINE CHLORIDE VIAL 200 MG/10 ML VIAL IV ONE (14:35)
[2019-02-18] MEDS ORDERED: DILTIAZEM DRIP BOLUS FROM BAG 1 MG SOLN IV ONE (15:00)
[2019-02-18] MEDS ORDERED: DILTIAZEM 125 MG in SODIUM CHLORIDE 0.9% 100 ML IV SCH (15:00)
[2019-02-18] MEDS: ASPIRIN 81 MG PO SCH (15:06)
[2019-02-18] MEDS: ATORVASTATIN 40 MG TAB PO SCH (15:06)
[2019-02-18] MEDS: POTASSIUM CHLORIDE ER 10 MEQ TAB.ER.PRT PO SCH (15:07)
[2019-02-18] MEDS: PREGABALIN 75 MG CAP PO SCH ×3 (15:07→20:39)
[2019-02-18] MEDS ORDERED: DIAZEPAM 5 MG/ML 2 ML INJ IVP STA (15:18)
[2019-02-18] MEDS ORDERED: DIAZEPAM 5 MG/ML 2 ML INJ IVP PRN (15:18)
[2019-02-18] MEDS ORDERED: HEPARIN SODIUM,PORCINE 5,000 UNIT/ML 1 ML VIAL IV PRN (15:29)
[2019-02-18] MEDS ORDERED: HEPARIN SODIUM,PORCINE 5,000 UNIT/ML 1 ML VIAL IV ONE (15:29)
--- NOTE | 2019-02-18 15:33 | P.HPIM ---
History of Present Illness Patient is a pleasant 73-year-old male known to me from his last hospitalization came in with fever cough with whitish sputum production found to be septic found to be in septic shock admitted to ICU. The patient is presently on vancomycin and Zosyn patient's sputum is positive for MRSA in the past. She leukocytosis but worse today. Patient will failure is bit worse patient was on vasopressin and norepinephrine now presently only on norepinephrine. The patient was recently discharged from the hospital on February 01. Patient went into atrial fibrillation patient was started on Cardizem patient is on Eliquis at home. Patient was started on IV heparin and hold off on Eliquis at this time. Patient also complaining of for abdominal pain mostly back pain in the lower back area. Patient isn't hypoxic respiratory failure and is on BiPAP at this time. Patient is in acute renal failure as well. -Patient had a lengthy hospitalization course during his last hospital at that time patient was admitted for adrenal hemorrhage leading to hypotension patient was started on a discharged on for the cortisone and hydrocortisone. At that time patient had an episode of A. fib after which patient was cardioverted in ER and subsequently needing 76 weeks of anticoagulation because of which patient was discharged on Eliquis patient has mildly elevated troponin here during this hospital patient. Patient is not feeling well. She says he is mainly coming in for nausea vomiting which resolved at this time patient denied any hematemesis hematochezia denied any significant abdominal pain Review of Systems REVIEW OF SYSTEMS: CONSTITUTIONAL: Patient has significant weakness and had a fever here HEENT: No recent visual problems or hearing problems. Denied any sore throat. CARDIOVASCULAR: No chest pain, orthopnea, PND, no palpitations, no syncope. PULMONARY: As mentioned in HPI GASTROINTESTINAL: No diarrhea, NEUROLOGICAL: No headaches, no weakness, no numbness. HEMATOLOGICAL: Denies any bleeding or petechiae. GENITOURINARY: Denies any burning micturition, frequency, or urgency. MUSCULOSKELETAL/RHEUMATOLOGICAL: Denies any joint pain, swelling, or any muscle pain. ENDOCRINE: Denies any polyuria or polydipsia. The rest of the 14-point review of systems is negative. Past Medical History Past Medical History: Coronary Artery Disease (CAD), Cancer, Diabetes Mellitus, Hypertension, Pneumonia Additional Past Medical History / Comment(s): lymphoma 4 times-yrs since chemo and radiation. Has a history of histoplasmosis which required the lung resection -HAS SOME SOB. hernia Last Myocardial Infarction Date:: unknown History of Any Multi-Drug Resistant Organisms: MRSA Date of last positivie culture/infection: 05/09/18 MDRO Source:: MRSA SPUTUM Past Surgical History: Cholecystectomy, Heart Catheterization With Stent, Hernia Repair Additional Past Surgical History / Comment(s): stem cell transplant/ LUNG RESECTION. 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 Past Anesthesia/Blood Transfusion Reactions: No Reported Reaction Additional Past Anesthesia/Blood Transfusion Reaction / Comment(s): no hx blood transfusion Date of Last Stent Placement:: 01-10-2013 Past Psychological History: No Psychological Hx Reported Additional Psychological History / Comment(s): Pt resides with his spouse. He uses no assistive device. He drives. Smoking Status: Never smoker Past Alcohol Use History: None Reported Past Drug Use History: None Reported - Past Family History Mother Family Medical History: No Reported History Additional Family Medical History / Comment(s): Mother from a strangulated hernia at the age of 68yrs Father Additional Family Medical History / Comment(s): Father of a "ruptured" heart at the age of 72 yrs. Medications and Allergies Home Medications Medication Instructions Recorded Confirmed Type Furosemide [Lasix] 20 mg PO DAILY 08/25/16 02/18/19 History Aspirin [Adult Low Dose Aspirin EC] 81 mg PO DAILY 10/27/16 02/18/19 History Multivit-Min/FA/Lycopen/Lutein 1 tab PO DAILY 07/26/17 02/18/19 History [Centrum Silver Men Tablet] metFORMIN HCL [Glucophage] 500 mg PO AC-BID 07/26/17 02/18/19 History Metoprolol Tartrate [Lopressor] 12.5 mg PO BID 09/15/17 02/18/19 History Atorvastatin [Lipitor] 40 mg PO DAILY 04/30/18 02/18/19 History Insulin Glargine,Hum.rec.anlog 24 units SQ HS 04/30/18 02/18/19 History [Toujeo Solostar] Ipratropium-Albuterol Nebulize 3 ml INHALATION RT-Q6H PRN 05/08/18 02/18/19 History [Duoneb 0.5 mg-3 mg/3 ml Soln] Potassium Chloride ER [K-Dur 10] 10 meq PO DAILY 05/08/18 02/18/19 History Acetaminophen-Codeine 300-30mg 1 - 2 tab PO Q4HR PRN 01/28/19 02/18/19 History [Tylenol w/codeine #3] Montelukast Sodium [Singulair] 10 mg PO HS 01/28/19 02/18/19 History Pregabalin [Lyrica] 75 mg PO TID 01/28/19 02/18/19 History Acyclovir [Zovirax] 400 mg PO BID #14 cap 02/01/19 02/18/19 Rx Apixaban [Eliquis] 5 mg PO BID #60 tab 02/01/19 02/18/19 Rx Famotidine [Pepcid] 20 mg PO BID #20 tab 02/01/19 02/18/19 Rx Fludrocortisone [Florinef] 0.1 mg PO DAILY #30 tab 02/01/19 02/18/19 Rx Hydrocortisone [Cortef] 20 mg PO BID #30 tab 02/01/19 02/18/19 Rx Allergies Allergy/AdvReac Type Severity Reaction Status Date / Time No Known Allergies Allergy Verified 02/18/19 12:08 Physical Exam Vitals: Vital Signs Temp Pulse Pulse Resp BP Pulse Ox 02/18/19 07:00 131 H 27 H 94/80 96 02/18/19 06:45 131 H 28 H 104/44 97 02/18/19 06:30 131 H 30 H 89/41 89 L 02/18/19 06:15 131 H 30 H 87/53 91 L 02/18/19 06:00 129 H 20 74/46 88 L 02/18/19 05:45 121 H 21 71/44 82 L 02/18/19 05:30 124 H 29 H 85/46 88 L 02/18/19 05:15 115 H 28 H 83/46 87 L 02/18/19 05:00 123 H 22 90/45 90 L 02/18/19 04:45 122 H 25 H 91/44 90 L 02/18/19 04:30 122 H 22 92/46 87 L 02/18/19 04:15 124 H 20 96/52 91 L 02/18/19 04:05 121 H 23 77 L 02/18/19 03:24 126 H 20 80/46 90 L 02/18/19 02:30 124 H 20 78/48 88 L 02/18/19 02:27 99.8 F H 120 H 18 78/50 92 L 02/18/19 02:00 114 H 20 80/43 92 L 02/18/19 01:30 124 H 20 124/60 91 L 02/18/19 01:00 112 H 20 89/52 95 02/18/19 00:30 117 H 19 120/58 91 L 02/18/19 00:13 118 H 19 140/62 90 L 02/18/19 00:10 101.4 F H 116 H 19 140/62 91 L 02/17/19 23:40 112 H 18 153/67 89 L 02/17/19 23:11 121 H 18 152/87 95 02/17/19 22:18 109 H 02/17/19 22:13 100.9 F H 108 H 18 135/69 92 L Intake and Output 02/18/19 02/18/19 02/18/19 06:59 14:59 22:59 Intake Total 24.404 183.453 Output Total 800 40 Balance -775.596 143.453 Intake: Intake, IV Titration 24.404 183.453 Amount Norepinephrine 32 mg In 24.404 183.453 Sodium Chloride 0.9% 218 ml @ 0.05 MCG/KG/MIN 1. 701 mls/hr IV .Q24H [facility] Rx#:[id number] Output: Urine 800 40 Other: Voiding Method Indwelling Catheter Weight 80.9 kg PHYSICAL EXAMINATION: GENERAL: The patient is alert and oriented x3, in BiPAP in respiratory distress HEENT: Pupils are round and equally reacting to light. EOMI. No scleral icterus. No conjunctival pallor. Normocephalic, atraumatic. No pharyngeal erythema. No thyromegaly. CARDIOVASCULAR: S1 and S2 present. No murmurs, rubs, or gallops. PULMONARY: Bilateral rhonchi ABDOMEN: Soft, nontender, nondistended, normoactive bowel sounds. No palpable organomegaly. MUSCULOSKELETAL: No joint swelling or deformity. EXTREMITIES: No cyanosis, clubbing, or pedal edema. NEUROLOGICAL: Gross neurological examination did not reveal any focal deficits. SKIN: No rashes. Results CBC & Chem 7: 02/18/19 08:08 02/18/19 08:08 Labs: Abnormal Lab Results - Last 24 Hours (Table) 02/17/19 02/17/19 02/17/19 Range/Units 23:05 23:05 23:05 WBC (3.8-10.6) k/uL RBC (4.30-5.90) m/uL Hgb (13.0-17.5) gm/dL Hct (39.0-53.0) % Neutrophils # (Manual) 7.90 H (1.3-7.7) k/uL Lymphocytes # (Manual) (1.0-4.8) k/uL Metamyelocytes # (Man) (0) k/uL ABG pH (7.35-7.45) ABG pO2 (83-108) mmHg ABG HCO3 (21-25) mmol/L ABG Total CO2 (19-24) mmol/L ABG O2 Saturation (94-97) % Sodium 136 L (137-145) mmol/L Potassium 3.1 L (3.5-5.1) mmol/L Chloride (98-107) mmol/L Carbon Dioxide (22-30) mmol/L BUN 22 H (9-20) mg/dL Creatinine (0.66-1.25) mg/dL Glucose 159 H (74-99) mg/dL POC Glucose (mg/dL) (75-99) mg/dL Plasma Lactic Acid Ko 2.6 H* (0.7-2.0) mmol/L Calcium (8.4-10.2) mg/dL Magnesium 1.2 L (1.6-2.3) mg/dL Troponin I (0.000-0.034) ng/mL Total Protein 6.2 L (6.3-8.2) g/dL Urine Protein (Negative) Urine Glucose (UA) (Negative) 02/17/19 02/17/19 02/18/19 Range/Units 23:05 23:05 03:17 WBC (3.8-10.6) k/uL RBC (4.30-5.90) m/uL Hgb (13.0-17.5) gm/dL Hct (39.0-53.0) % Neutrophils # (Manual) (1.3-7.7) k/uL Lymphocytes # (Manual) (1.0-4.8) k/uL Metamyelocytes # (Man) (0) k/uL ABG pH (7.35-7.45) ABG pO2 (83-108) mmHg ABG HCO3 (21-25) mmol/L ABG Total CO2 (19-24) mmol/L ABG O2 Saturation (94-97) % Sodium (137-145) mmol/L Potassium (3.5-5.1) mmol/L Chloride (98-107) mmol/L Carbon Dioxide (22-30) mmol/L BUN (9-20) mg/dL Creatinine (0.66-1.25) mg/dL Glucose (74-99) mg/dL POC Glucose (mg/dL) (75-99) mg/dL Plasma Lactic Acid Ko (0.7-2.0) mmol/L Calcium (8.4-10.2) mg/dL Magnesium (1.6-2.3) mg/dL Troponin I 0.073 H* 0.233 H* (0.000-0.034) ng/mL Total Protein (6.3-8.2) g/dL Urine Protein Trace H (Negative) Urine Glucose (UA) 3+ H (Negative) 02/18/19 02/18/19 02/18/19 Range/Units 03:17 03:17 03:17 WBC (3.8-10.6) k/uL RBC 4.00 L (4.30-5.90) m/uL Hgb 12.2 L (13.0-17.5) gm/dL Hct 36.8 L (39.0-53.0) % Neutrophils # (Manual) (1.3-7.7) k/uL Lymphocytes # (Manual) (1.0-4.8) k/uL Metamyelocytes # (Man) 0.13 H (0) k/uL ABG pH (7.35-7.45) ABG pO2 (83-108) mmHg ABG HCO3 (21-25) mmol/L ABG Total CO2 (19-24) mmol/L ABG O2 Saturation (94-97) % Sodium (137-145) mmol/L Potassium 3.3 L (3.5-5.1) mmol/L Chloride (98-107) mmol/L Carbon Dioxide (22-30) mmol/L BUN 22 H (9-20) mg/dL Creatinine (0.66-1.25) mg/dL Glucose 134 H (74-99) mg/dL POC Glucose (mg/dL) (75-99) mg/dL Plasma Lactic Acid Ko 2.4 H* (0.7-2.0) mmol/L Calcium 7.4 L (8.4-10.2) mg/dL Magnesium (1.6-2.3) mg/dL Troponin I (0.000-0.034) ng/mL Total Protein (6.3-8.2) g/dL Urine Protein (Negative) Urine Glucose (UA) (Negative) 02/18/19 02/18/19 02/18/19 Range/Units 04:04 04:30 05:42 WBC (3.8-10.6) k/uL RBC (4.30-5.90) m/uL Hgb (13.0-17.5) gm/dL Hct (39.0-53.0) % Neutrophils # (Manual) (1.3-7.7) k/uL Lymphocytes # (Manual) (1.0-4.8) k/uL Metamyelocytes # (Man) (0) k/uL ABG pH (7.35-7.45) ABG pO2 46 L* (83-108) mmHg ABG HCO3 (21-25) mmol/L ABG Total CO2 (19-24) mmol/L ABG O2 Saturation 80.2 L (94-97) % Sodium (137-145) mmol/L Potassium (3.5-5.1) mmol/L Chloride (98-107) mmol/L Carbon Dioxide (22-30) mmol/L BUN (9-20) mg/dL Creatinine (0.66-1.25) mg/dL Glucose (74-99) mg/dL POC Glucose (mg/dL) 115 H (75-99) mg/dL Plasma Lactic Acid Ko (0.7-2.0) mmol/L Calcium (8.4-10.2) mg/dL Magnesium (1.6-2.3) mg/dL Troponin I (0.000-0.034) ng/mL Total Protein (6.3-8.2) g/dL Urine Protein Trace H (Negative) Urine Glucose (UA) 3+ H (Negative) 02/18/19 02/18/1920 Range/Units 05:52 08:08 08:08 WBC 20.5 H (3.8-10.6) k/uL RBC (4.30-5.90) m/uL Hgb (13.0-17.5) gm/dL Hct (39.0-53.0) % Neutrophils # (Manual) 14.10 H (1.3-7.7) k/uL Lymphocytes # (Manual) 5.54 H (1.0-4.8) k/uL Metamyelocytes # (Man) (0) k/uL ABG pH (7.35-7.45) ABG pO2 (83-108) mmHg ABG HCO3 (21-25) mmol/L ABG Total CO2 (19-24) mmol/L ABG O2 Saturation (94-97) % Sodium (137-145) mmol/L Potassium (3.5-5.1) mmol/L Chloride 108 H (98-107) mmol/L Carbon Dioxide 16 L (22-30) mmol/L BUN 21 H (9-20) mg/dL Creatinine 1.50 H (0.66-1.25) mg/dL Glucose 169 H (74-99) mg/dL POC Glucose (mg/dL) 130 H (75-99) mg/dL Plasma Lactic Acid Ko (0.7-2.0) mmol/L Calcium 7.5 L (8.4-10.2) mg/dL Magnesium 1.0 L (1.6-2.3) mg/dL Troponin I (0.000-0.034) ng/mL Total Protein (6.3-8.2) g/dL Urine Protein (Negative) Urine Glucose (UA) (Negative) 02/18/19 02/18/19 02/18/19 Range/Units 08:08 10:31 11:47 WBC (3.8-10.6) k/uL RBC (4.30-5.90) m/uL Hgb (13.0-17.5) gm/dL Hct (39.0-53.0) % Neutrophils # (Manual) (1.3-7.7) k/uL Lymphocytes # (Manual) (1.0-4.8) k/uL Metamyelocytes # (Man) (0) k/uL ABG pH 7.28 L (7.35-7.45) ABG pO2 79 L (83-108) mmHg ABG HCO3 16 L (21-25) mmol/L ABG Total CO2 17 L (19-24) mmol/L ABG O2 Saturation (94-97) % Sodium (137-145) mmol/L Potassium (3.5-5.1) mmol/L Chloride (98-107) mmol/L Carbon Dioxide (22-30) mmol/L BUN (9-20) mg/dL Creatinine (0.66-1.25) mg/dL Glucose (74-99) mg/dL POC Glucose (mg/dL) 219 H (75-99) mg/dL Plasma Lactic Acid Ko 6.8 H* (0.7-2.0) mmol/L Calcium (8.4-10.2) mg/dL Magnesium (1.6-2.3) mg/dL Troponin I (0.000-0.034) ng/mL Total Protein (6.3-8.2) g/dL Urine Protein (Negative) Urine Glucose (UA) (Negative) 02/18/19 02/18/19 02/18/19 Range/Units 12:15 12:27 12:37 WBC (3.8-10.6) k/uL RBC (4.30-5.90) m/uL Hgb (13.0-17.5) gm/dL Hct (39.0-53.0) % Neutrophils # (Manual) (1.3-7.7) k/uL Lymphocytes # (Manual) (1.0-4.8) k/uL Metamyelocytes # (Man) (0) k/uL ABG pH (7.35-7.45) ABG pO2 (83-108) mmHg ABG HCO3 (21-25) mmol/L ABG Total CO2 (19-24) mmol/L ABG O2 Saturation (94-97) % Sodium (137-145) mmol/L Potassium (3.5-5.1) mmol/L Chloride (98-107) mmol/L Carbon Dioxide (22-30) mmol/L BUN (9-20) mg/dL Creatinine (0.66-1.25) mg/dL Glucose (74-99) mg/dL POC Glucose (mg/dL) 219 H (75-99) mg/dL Plasma Lactic Acid Ko 7.5 H* (0.7-2.0) mmol/L Calcium (8.4-10.2) mg/dL Magnesium (1.6-2.3) mg/dL Troponin I 0.241 H* (0.000-0.034) ng/mL Total Protein (6.3-8.2) g/dL Urine Protein (Negative) Urine Glucose (UA) (Negative) 02/18/19 Range/Units 14:23 WBC (3.8-10.6) k/uL RBC (4.30-5.90) m/uL Hgb (13.0-17.5) gm/dL Hct (39.0-53.0) % Neutrophils # (Manual) (1.3-7.7) k/uL Lymphocytes # (Manual) (1.0-4.8) k/uL Metamyelocytes # (Man) (0) k/uL ABG pH (7.35-7.45) ABG pO2 (83-108) mmHg ABG HCO3 (21-25) mmol/L ABG Total CO2 (19-24) mmol/L ABG O2 Saturation (94-97) % Sodium (137-145) mmol/L Potassium (3.5-5.1) mmol/L Chloride (98-107) mmol/L Carbon Dioxide (22-30) mmol/L BUN (9-20) mg/dL Creatinine (0.66-1.25) mg/dL Glucose (74-99) mg/dL POC Glucose (mg/dL) 234 H (75-99) mg/dL Plasma Lactic Acid Ko (0.7-2.0) mmol/L Calcium (8.4-10.2) mg/dL Magnesium (1.6-2.3) mg/dL Troponin I (0.000-0.034) ng/mL Total Protein (6.3-8.2) g/dL Urine Protein (Negative) Urine Glucose (UA) (Negative) Assessment and Plan Plan: -Septic shock secondary to extensive bilateral pneumonia patient was recently hospitalized because of which patient is being treated for the broad-spectrum antibiotics. His sputum was positive for MRSA in the past patient probably has MRSA pneumonia will wait for the sputum cultures rate fairly waiting for the blood cultures. Patient is on pressor support able to get rid of vasopressin continue with IV fluids continue with norepinephrine. -Acute hypoxic respiratory failure secondary to sepsis and extensive bilateral pneumonia management as mentioned above -Acute renal failure probably acute tubular necrosis and hypotension from sepsis patient will continued on IV fluids -Mildly elevated troponin secondary to A. fib and the sepsis -Atrial fibrillation with rapid ventricular rate patient was started on Cardizem patient will be given heparin considering the patient's creatinine is elevated to 1.5 probably enoxaparin is not a good idea considering recent adrenal hemorrhage all hold off on Eliquis for now temporarily -Recent adrenal hemorrhage and retinal insufficiency for which patient on for the Hydrocortisone Which Will Be Continued -History of lymphoma which is in remission at this time -Depression
[2019-02-18] MEDS: HEPARIN SOD,PORK IN 0.45% NACL 25,000 UNIT in 0.45% NACL 1 250ML.BAG IV SCH (15:48)
[2019-02-18] MEDS ORDERED: VANCOMYCIN 1,250 MG in SODIUM CHLORIDE 0.9% 250 ML IVPB SCH (16:00)
[2019-02-18] MEDS: HYDROCORTISONE SUCCINATE 100 MG/2 ML VIAL IV SCH ×2 (16:09→23:16)
[2019-02-18 16:31] LABS: INR 1.3 (<1.2); Partial Thromboplastin Time 33.3 sec (22.0-30.0); Prothrombin Time 13.1 sec (9.0-12.0)
[2019-02-18] MEDS ORDERED: MORPHINE SULFATE 4 MG/ML SYRINGE IVP STA (16:35)
[2019-02-18] MEDS: PROPOFOL 1,000 MG in EMPTY BAG 1 BAG IV SCH ×2 (16:45→19:40)
[2019-02-18] MEDS ORDERED: CISATRACURIUM 2 MG/ML 5 ML VIAL IV ONE (16:58)
[2019-02-18] MEDS ORDERED: AMIODARONE 360 MG in DEXTROSE 5% IN WATER 200 ML IV ONE ×2 (16:58)
[2019-02-18] MEDS ORDERED: DEXTROSE 5% IN WATER 100 ML with AMIODARONE 150 MG IV ONE (16:58)
[2019-02-18 17:05] LABS: ABG Base Excess -15.1 mmol/L; ABG HCO3 15 mmol/L (21-25); ABG Oxygen Saturation 79.9 % (94-97); ABG PCO2 47 mmHg (35-45); ABG TCO2 16 mmol/L (19-24); Allen Test Performed? Yes
[2019-02-18 17:12] LABS: ABG PO2 55 mmHg (83-108)
[2019-02-18] MEDS ORDERED: IPRATROPIUM-ALBUTEROL 3 ML NEB INHALATION PRN (17:12)
--- NOTE | 2019-02-18 17:19 | OP ---
OPERATIVE REPORT OPERATIVE PROCEDURE: Endotracheal intubation. PREOPERATIVE DIAGNOSIS: Acute hypoxic respiratory failure and sepsis. POSTOPERATIVE DIAGNOSIS: Acute hypoxic respiratory failure and sepsis. ANESTHESIA USED: Patient was given 75 mg of succinylcholine, morphine sulfate 4 mg IV push, propofol 50 mg IV push. PROCEDURE DESCRIPTION: Patient was placed in supine position. The patient received anesthesia as above, and after full anesthetic effect, a GlideScope was used. The tongue was depressed. There was good visualization of the vocal cords. Then an endotracheal tube was inserted, size 8.0, through the vocal cords and advanced until it went beyond the vocal cords, and the cuff was inflated. There was good color change. There was good placement of the endotracheal tube. The tube was connected to mechanical ventilation. Cuff was inflated. The procedure was well tolerated; no evidence of any immediate complications. The patient was connected to mechanical ventilation shortly after he was intubated. An orogastric tube was also placed. MMODL / IJN: [id number] /
--- NOTE | 2019-02-18 17:22 | XR ---
EXAMINATION TYPE: XR chest 1V portable DATE OF EXAM: 02/18/2019 COMPARISON: Today HISTORY: Line placement TECHNIQUE: FINDINGS: There is right jugular catheter with the tip in the superior vena cava. There is pulmonary edema. There is blunting of the costophrenic angles. There are chest leads. Nasogastric tube is in th e stomach in the gastric fundus. Exam is limited by metal hardware over the upper thoracic spine. There appears to be endotracheal tub e with the tip 4 cm from the shalini. IMPRESSION: Pulmonary edema and pleural fluid are the same or worse than exam earlier today.
[2019-02-18] MEDS: CISATRACURIUM 200 MG in SODIUM CHLORIDE 0.9% 180 ML IV SCH (17:37)
[2019-02-18 18:11] LABS: Glucose,Whole Blood 269 mg/dL (75-99)
[2019-02-18] MEDS: DEXTROSE 5% IN WATER 1,000 ML with SODIUM BICARB (1 MEQ/ML) 150 ML IV SCH (18:30)
[2019-02-18] MEDS: IPRATROPIUM-ALBUTEROL 3 ML NEB INHALATION SCH ×2 (18:47→23:18)
[2019-02-18 19:01] LABS: Glucose,Whole Blood 273 mg/dL (75-99)
[2019-02-18 19:20] LABS: ABG HCO3 16 mmol/L (21-25); ABG Oxygen Saturation 84.8 % (94-97); ABG PCO2 46 mmHg (35-45); ABG TCO2 17 mmol/L (19-24); Allen Test Performed? Yes
[2019-02-18 19:21] LABS: ABG PH 7.15 (7.35-7.45); ABG PO2 57 mmHg (83-108)
[2019-02-18] MEDS: CHLORHEXIDINE GLUCONATE 15 ML CUP MUCOUS MEM SCH (20:48)
[2019-02-18] MEDS ORDERED: ENOXAPARIN 80 MG/0.8 ML SYRINGE SQ SCH (21:00)
[2019-02-18 21:08] LABS: ABG Base Excess -12.5 mmol/L; ABG HCO3 17 mmol/L (21-25); ABG Oxygen Saturation 85.9 % (94-97); ABG PCO2 49 mmHg (35-45); ABG TCO2 18 mmol/L (19-24); Allen Test Performed? Yes
[2019-02-18 21:09] LABS: ABG PH 7.14 (7.35-7.45); ABG PO2 58 mmHg (83-108)
[2019-02-18] MEDS: FLUDROCORTISONE 0.1 MG TAB PO SCH (21:46)
[2019-02-18] MEDS: AMIODARONE 300 MG in DEXTROSE 5% IN WATER 250 ML IV SCH ×2 (22:41)
[2019-02-18 23:13] LABS: Glucose,Whole Blood 336 mg/dL (75-99)
[2019-02-19] MEDS: CEFEPIME 2 GM in SODIUM CHLORIDE 0.9% 100 ML IVPB SCH ×2 (00:27→12:48)
[2019-02-19] MEDS: PROPOFOL 1,000 MG in EMPTY BAG 1 BAG IV SCH ×4 (03:13→16:27)
[2019-02-19] MEDS: IPRATROPIUM-ALBUTEROL 3 ML NEB INHALATION SCH ×6 (03:43→23:09)
[2019-02-19 04:47] LABS: HCT 44.8 % (39.0-53.0); HGB 14.3 gm/dL (13.0-17.5); Hypochromasia Moderate; MCH 30.9 pg (25.0-35.0); MCHC 31.9 g/dL (31.0-37.0); MCV 96.8 fL (80.0-100.0); Platelet Count 289 k/uL (150-450); Poikilocytosis Slight; RBC 4.63 m/uL (4.30-5.90); RDW 14.4 % (11.5-15.5); WBC 43.2 k/uL (3.8-10.6)
[2019-02-19 05:15] LABS: Albumin 2.4 g/dL (3.5-5.0); Calcium 6.8 mg/dL (8.4-10.2); Magnesium 1.8 mg/dL (1.6-2.3); Potassium 4.8 mmol/L (3.5-5.1); Total Bilirubin 0.8 mg/dL (0.2-1.3); Total Protein 4.3 g/dL (6.3-8.2)
[2019-02-19 05:44] LABS: Glucose,Whole Blood 412 mg/dL (75-99)
[2019-02-19] MEDS: MAGNESIUM SULFATE-D5W PMX 1 GM in DEXTROSE/WATER 1 100ML.BAG IVPB SCH ×2 (05:47→06:47)
[2019-02-19] MEDS: INSULIN ASPART (NovoLOG) 100 UNIT/ML VIAL SQ SCH (05:48)
[2019-02-19] MEDS: DEXTROSE 5% IN WATER 1,000 ML with SODIUM BICARB (1 MEQ/ML) 150 ML IV SCH ×2 (05:52→16:24)
[2019-02-19] MEDS ORDERED: INSULIN ASPART (NovoLOG) 100 UNIT/ML VIAL SQ ONE (06:06)
[2019-02-19 06:16] LABS: Band Neutrophils % 66 %; Metamyelocytes % 3 %; Monocytes # (M) 0.86 k/uL (0-1.0); Myelocytes # (M) 0.43 k/uL (0); Myelocytes % 1 %; Neutrophils % (M) 28 %; Nucleated Red Blood Cells 0 /100 WBC (0-0); Total Cells Counted 200
[2019-02-19 06:18] LABS: Anisocytosis (M) Present
[2019-02-19 06:19] LABS: Toxic Granulation Present; Toxic Vacuolation Present
[2019-02-19 06:20] LABS: Polychromasia Present
[2019-02-19 07:03] LABS: ABG Base Excess -8.1 mmol/L; ABG HCO3 20 mmol/L (21-25); ABG Oxygen Saturation 89.6 % (94-97); ABG PCO2 55 mmHg (35-45); ABG PO2 62 mmHg (83-108); ABG TCO2 22 mmol/L (19-24); Allen Test Performed? Yes
[2019-02-19] MEDS: HYDROCORTISONE SUCCINATE 100 MG/2 ML VIAL IV SCH ×3 (07:58→23:30)
[2019-02-19] MEDS: ATORVASTATIN 40 MG TAB PO SCH (08:00)
[2019-02-19] MEDS: ASPIRIN 81 MG PO SCH (08:00)
[2019-02-19] MEDS: PREGABALIN 75 MG CAP PO SCH ×3 (08:00→21:19)
[2019-02-19] MEDS: CHLORHEXIDINE GLUCONATE 15 ML CUP MUCOUS MEM SCH ×2 (08:00→21:19)
[2019-02-19] MEDS: FLUDROCORTISONE 0.1 MG TAB PO SCH (08:00)
[2019-02-19] MEDS: PANTOPRAZOLE 40 MG/10 ML VIAL IV SCH (08:23)
--- NOTE | 2019-02-19 08:36 | CONS ---
CONSULTATION Mr. Phillips is a 73-year-old gentleman who has history of multiple comorbid conditions. This gentleman presented to the emergency room yesterday with what seems to be shortness of breath and was febrile and appeared to be septic and the clinical picture was that of a septic shock and he was admitted to the intensive care unit. He carries a diagnosis of paroxysmal atrial fibrillation. Unfortunately, his blood cultures and urine are growing E coli according to the nurse caring fo the patient, not verified . We are probably dealing with E coli sepsis and septic shock. The patient went into atrial fibrillation and I was consulted in this regard yesterday. He was initiated on a Cardizem drip and has converted to sinus rhythm. Apparently patient was on Eliquis at home. PAST MEDICAL HISTORY: Remarkable for coronary artery disease, lymphoma status post stem cell transplantation, hypertension, hyperlipidemia, diabetes. He has history of histoplasmosis with lung resection. He has a history of cholecystectomy as well. He has had a percutaneous coronary intervention with stenting of the mid LAD that was patent on the last cardiac cath from September of 2017. At that time, he was found to have a patent LAD stent with nonobstructive disease in the other vessels moderate mitral regurgitation. 1. Paroxysmal atrial fib. 2. CAD. 3. Mitral regurgitation. 4. History of lymphoma, extensive transplantation. 5. Type 2 diabetes mellitus. MEDICATIONS: Home medications include metformin, Lyrica, potassium supplements, insulin, metoprolol 12.5 mg b.i.d., Lasix 20 mg daily, Lipitor 40 mg daily, aspirin 81 mg daily, Eliquis 5 mg b.i.d. ALLERGIES: None. REVIEW OF SYSTEMS: Unremarkable other than above-mentioned facts. PHYSICAL EXAMINATION: Patient is intubated on A ventilator on multiple pressors. Blood pressure is about 100 systolic, pulse rate is about the 90 sinus. HEENT: Unremarkable. LYMPHATIC: Limited exam was performed. NECK: Supple. There is no JVD. HEART: Exam reveals S1, S2 with tachycardia, there is a short systolic murmur at the base. LUNGS: Reveal ventilator-assisted breath sounds. ABDOMEN: Soft. LOWER EXTREMITIES: Reveal diminished pulses. CENTRAL NERVOUS SYSTEM: Grossly within central system. Assessment was not performed. IMPRESSION: 1. Escherichia coli sepsis with septic shock. 2. CAD with previous PCI. 3. Hyper. 4. History of hypertension. 5. Mitral regurgitation. 6. History of lymphoma and stem cell transplant. 7. Paroxysmal atrial fibrillation. RECOMMENDATIONS: I am recommending that we continue current medications. The patient is on amiodarone which we will continue for the time being. I have discontinued his Cardizem yesterday after it was initiated. We will also obtain echocardiogram to assess LV function. Patient also may have underlying adrenal insufficiency given his multiple comorbid conditions and he is already being treated with hydrocortisone. Overall prognosis remains quite poor. No other suggestions from a cardiac standpoint. Prognosis remains poor. MMODL / IJN: [id number] / MTDD
--- NOTE | 2019-02-19 08:38 | XR ---
EXAMINATION TYPE: XR chest 1V portable DATE OF EXAM: 02/19/2019 COMPARISON: Prior chest 02/18/2019 HISTORY: Intubated TECHNIQUE: Single frontal view of the chest is obtained. FINDINGS: Endotracheal tube is overlying the tracheal air column, there is an NG tube present with t he distal tip coursing towards left upper quadrant not included on the exam. There are overlying card iac leads. Postop changes are again noted to the cervical thoracic spine. There is a spinal curvature . Right jugular central venous catheter shows the distal tip overlying the region of the cavoatrial j unction. Interstitium is increased. No evident pneumothorax. Bibasilar increased density with obscure d hemidiaphragms again noted. Heart size is enlarged. Patient is rotated. IMPRESSION: Correlate for interstitial edema, congestive heart failure with pleural effusions, pneum onia not excluded. Follow-up recommended. There may be some improvement in volume status as compared to previous exam.
[2019-02-19] MEDS ORDERED: FUROSEMIDE 10 MG/ML 4 ML VIAL IV STA (08:47)
[2019-02-19 10:08] VITALS: BMI 28.6
[2019-02-19 10:52] LABS: ABG Base Excess -8.2 mmol/L; ABG HCO3 21 mmol/L (21-25); ABG Oxygen Saturation 91.9 % (94-97); ABG PCO2 58 mmHg (35-45); ABG PO2 69 mmHg (83-108); ABG TCO2 22 mmol/L (19-24)
[2019-02-19 10:56] LABS: ABG PH 7.16 (7.35-7.45); Allen Test Performed? no
[2019-02-19] MEDS ORDERED: SODIUM BICARB 8.4% 50 ML SYR (1 MEQ/ML) IV STA (10:59)
[2019-02-19] MEDS ORDERED: MORPHINE SULFATE 2 MG/ML SYRINGE IVP PRN ×2 (11:00)
[2019-02-19 11:02] VITALS: BP 96/59
[2019-02-19] MEDS ORDERED: INSULIN REGULAR BOLUS (FROM DRIP BAG) IV PRN (11:39)
[2019-02-19 11:45] LABS: Glucose,Whole Blood 502 mg/dL (75-99)
[2019-02-19] MEDS: SODIUM CHLORIDE 0.9% 150 ML with VASOPRESSIN 60 UNIT IV SCH ×4 (11:47→21:38)
[2019-02-19] MEDS: AMIODARONE 300 MG in DEXTROSE 5% IN WATER 250 ML IV SCH ×2 (11:47)
[2019-02-19] MEDS: POTASSIUM CHLORIDE ER 10 MEQ TAB.ER.PRT PO SCH (11:48)
[2019-02-19] MEDS: VANCOMYCIN 1,500 MG in SODIUM CHLORIDE 0.9% 250 ML IVPB SCH (11:50)
--- NOTE | 2019-02-19 11:50 | ECHOF ---
Referral Reason:Hx of Mitral Regurg, Cardiology Request. MEASUREMENTS -------- HEIGHT: 175.3 cm WEIGHT: 87.5 kg BP: 105/49 RVIDd: 2.0 cm (< 3.3) IVSd: 1.0 cm (0.6 - 1.1) LVIDd: 4.7 cm (3.9 - 5.3) LVPWd: 1.2 cm (0.6 - 1.1) IVSs: 1.6 cm LVIDs: 4.0 cm LVPWs: 1.2 cm LAESV Index (A-L): 11.55 ml/m Ao Diam: 3.1 cm (2.0 - 3.7) AV Cusp: 1.3 cm (1.5 - 2.6) LA Diam: 3.1 cm (2.7 - 3.8) MV EXCURSION: 21.171 mm (> 18.000) MV EF SLOPE: 98 mm/s (70 - 150) EPSS: 1.0 cm MV E Dontae: 0.80 m/s MV DecT: 119 ms MV A Dontae: 1.13 m/s MV E/A Ratio: 0.71 AV maxP.78 mmHg AV meanP.03 mmHg AR PHT: 415 ms RAP: 20.00 mmHg RVSP: 55.69 mmHg TAPSE: 21.08 mm FINDINGS -------- Resting tachycardia (HR>100bpm). This was a technically good study. The left ventricular size is normal. Left ventricular wall thickness is normal. There is severe g lobal hypokinesis of LV . Overall left ventricular systolic function is severely impaired with, an EF between 20 - 25 %. Increased LAP Grade 3 Diastolic Dysfunction. The right ventricle is normal in size. The right ventricular systolic function is normal. The left atrial size is normal. Normal LA size by volume 22+/-6 ml/m2. The right atrial size is normal. Aortic valve is trileaflet and is mildly thickened. There is mild aortic regurgitation. There is mild aortic stenosis present. Peak/mean gradient across the Aortic Valve is 25.78mmHg / 14.03mmHg. The mitral valve is normal. The mitral valve leaflets are mildly thickened. Mild mitral regurgita tion is present. The tricuspid valve appears structurally normal. Mild tricuspid regurgitation present. There is m oderate pulmonary hypertension. The right ventricular systolic pressure, as measured by Doppler, is 55.69mmHg. There is no pulmonic regurgitation present. The aortic root size is normal. The inferior vena cava is dilated with no significant inspiratory collapse which is consistent estima elizabeth right atrial pressure of >20 mmHg. There is no pericardial effusion. CONCLUSIONS -------- 1. Resting tachycardia (HR>100bpm). 2. This was a technically good study. 3. The left ventricular size is normal. 4. Left ventricular wall thickness is normal. 5. There is severe global hypokinesis of LV . 6. Overall left ventricular systolic function is severely impaired with, an EF between 20 - 25 %. 7. Increased LAP Grade 3 Diastolic Dysfunction. 8. The right ventricle is normal in size. 9. The right ventricular systolic function is normal. 10. The left atrial size is normal. 11. Normal LA size by volume 22+/-6 ml/m2. 12. The right atrial size is normal. 13. Aortic valve is trileaflet and is mildly thickened. 14. There is mild aortic regurgitation. 15. There is mild aortic stenosis present. 16. Peak/mean gradient across the Aortic Valve is 25.78mmHg / 14.03mmHg. 17. The mitral valve is normal. 18. The mitral valve leaflets are mildly thickened. 19. Mild mitral regurgitation is present. 20. The tricuspid valve appears structurally normal. 21. Mild tricuspid regurgitation present. 22. There is moderate pulmonary hypertension. 23. The right ventricular systolic pressure, as measured by Doppler, is 55.69mmHg. 24. There is no pulmonic regurgitation present. 25. The aortic root size is normal. 26. The inferior vena cava is dilated with no significant inspiratory collapse which is consistent es timated right atrial pressure of >20 mmHg. 27. There is no pericardial effusion. HEALTH AND FITNESS INSTRUCTOR: Opal Reid RDCS
--- NOTE | 2019-02-19 12:29 | P.PN ---
Subjective Progress Note Date: 02/19/19 Principal diagnosis: Septic shock. This is a 73-year-old white male, familiar to my service, patient was admitted to the hospital on 01/28/2019, and discharged home on 02/01/2019. Patient was admitted with aspiration pneumonia, hypertension, atrial fibrillation with RVR requiring cardioversion, and at that time he was found to have adrenal hematoma. And felt that the patient may have adrenal insufficiency. All the issues where addressed, patient was in the ICU for a few days, and he turned around nicely. And he was supposedly discharged home on Lasix, aspirin, metformin, metoprolol, atorvastatin, insulin, albuterol with Atrovent updrafts, Lyrica, Singulair, Zovirax, Augmentin, Eliquis, Florinef, and hydrocortisone/Cortef 20 mg by mouth twice a day. Apparently the patient was advised to have follow-up with his primary care physician and follow-up with me. I saw this patient 2 days ago, and he was doing extremely well. His chest x-ray was reassuring and this was last week. Apparently over the weekend, the patient developed multiple confusional symptoms including low-grade fever, nausea, vomiting, weakness, and shortness of breath. Patient was noted to have hypotension in the ER. He had lactic acidosis, and clinically was septic. Central line was placed by the ER physician, placed empirically on antibiotics in the form of cefepime, Levaquin, and vancomycin. Chest x-ray showed bilateral infiltrates. Patient was given Solu-Cortef early this morning, and looking at the notes, patient may have stopped his Cortef and apparently he did not have a follow-up with endocrinology because of his adrenal insufficiency and all felt to be related to his renal hematoma. His condition deteriorated overnight, patient was admitted to the ICU on BiPAP with 100% FiO2, IPAP of 14, EPAP of 6, and his initial ABG showed significant metabolic acidosis and the relative hypoxemia. The patient received bicarb. Received more Solu-Cortef, and kept on antibiotics as well as IV fluids. CVP is about 8 at present. After evaluating the patient, a left radial arterial line was placed for blood pressure monitoring. And the patient was on norepinephrine initially at 0.7 mcg/kg/m. This is now being titrated. Looking back at his last admission, patient had a similar presentation with hypotension, however he responded well to Solu-Cortef and Florinef. I have a feeling that his Florinef and his Cortef will discontinued on outpatient basis somewhere along the line either by his primary care physician or by the treasury management sales consultant. Patient was evaluated today on 02/19/2019, patient took a downhill course yesterday, and late in the afternoon I had to intubate the patient because of worsening oxygenation, worsening chest x-ray, and persistent hypotension. Winter ayoub was intubated, placed on mechanical ventilation, and he is now on mechanical ventilation with assist control rate of 36. tidal volume of 450 FiO2 on the percent, and PEEP has been increased gradually from 5-14 this morning. ABG this morning showed a pO2 of 69 pCO2 of 58 pH of 7.16. Continues to have worsening lactic acidosis, his sugar is 502 today, and he'll be placed on insulin drip. In the meantime the patient is on norepinephrine at 0.45 mcg/kg/m, propofol at 50 mcg/kg/m, heparin drip, bicarbonate drip, Nimbex drip, amiodarone drip, vasopressin drip, and intermittent morphine sulfate while on Nimbex. His WBC count jumped today up to 43.2. Objective - Vital Signs Vital signs: Vital Signs Temp 102 F H 02/19/19 08:00 Pulse 111 H 02/19/19 11:16 Resp 36 H 02/19/19 11:00 BP 96/59 02/19/19 10:30 Pulse Ox 95 02/19/19 11:00 Intake & Output 02/18/19 02/19/19 02/19/19 18:59 06:59 18:59 Intake Total 5537.454 2943.961 904.104 Output Total 1320 912 230 Balance 4217.454 2031.961 674.104 Weight 87.9 kg 87.9 kg Intake: IV 1201 1172 380 Cefepime 2 gm In Sodium 100 Chloride 0.9% 100 ml @ 200 mls/hr IVPB Q12H [facility] Rx#:[id number] Magnesium Sulfate-D5w Pmx 100 100 1 gm In Dextrose/Water 1 100ml.bag @ 100 mls/hr IVPB Q1H [facility] Rx#: [id number] Normal Saline 1050 550 250 Normal Saline Pressure 51 72 30 Bag Sodium Bicarb Amp 100 100 Vancomycin 1,500 mg In 250 Sodium Chloride 0.9% 250 ml @ 125 mls/hr IVPB Q12H [facility] Rx#:[id number] Intake, IV Titration 4336.454 1771.961 524.104 Amount Amiodarone 300 mg In 250 Dextrose 5% in Water 250 ml @ 0.5 MG/MIN 25 mls/hr IV .Q10H [facility] Rx#: [id number] Amiodarone 360 mg In 50.0 33.3 Dextrose 5% in Water 200 ml @ 1 MG/MIN 33.333 mls/ hr IV .Q6H [facility] Rx#: [id number] Cefepime 2 gm In Sodium 100 Chloride 0.9% 100 ml @ 200 mls/hr IVPB Q12H [facility] Rx#:[id number] Cisatracurium 200 mg In 74.104 Sodium Chloride 0.9% 180 ml @ 1 MCG/KG/MIN 4.854 mls/hr IV .Q24H [facility] Rx#: [id number] Dextrose 5% in Water 1, 300 1200 100 000 ml @ 100 mls/hr IV . [id number] [facility] with Sodium Bicarb (1 Meq/ml) 150 ml Rx#:[id number] Dextrose 5% in Water 100 100 ml @ 618 mls/hr IV .Q10M [facility] with Amiodarone 150 mg Rx#:[id number] Heparin Sod,Pork in 0.45% 17.96 0 NaCl 25,000 unit In 0.45 % NaCl 1 250ml.bag @ 12 UNITS/KG/HR 9.708 mls/hr IV .Q24H [facility] Rx#: [id number] Magnesium Sulfate-D5w Pmx 400 1 gm In Dextrose/Water 1 100ml.bag @ 100 mls/hr IVPB Q1H [facility] Rx#: [id number] Norepinephrine 32 mg In 218.494 317.873 Sodium Chloride 0.9% 218 ml @ 0.05 MCG/KG/MIN 1. 701 mls/hr IV .Q24H [facility] Rx#:[id number] Potassium Chloride 20 meq 100 In Water For Injection 1 100ml.bag @ 50 mls/hr IVPB Q2H [facility] Rx#: [id number] Propofol 1,000 mg In 170.788 100 Empty Bag 1 bag @ Titrate IV .Q0M [facility] Rx#: [id number] Sodium Chloride 0.9% 1, 50 50 000 ml @ 50 mls/hr IV . Q20H [facility] Rx#:[id number] Sodium Chloride 0.9% 1, 3000 000 ml @ 999 mls/hr IV . Q1H1M [facility] Rx#:[id number] Output: Urine 1320 912 230 Other: Voiding Method Indwelling Catheter Indwelling Catheter Indwelling Catheter ABP, PAP, CO, CI - Last Documented Arterial Blood Pressure 110/52 - Exam GENERAL EXAM: Revealed 73-year-old white male sedated and paralyzed, on mechanical ventilation. HEAD: Normocephalic/atraumatic. EYES: Normal reaction of pupils, equal size. Conjunctiva pink, sclera white. NOSE: Clear with pink turbinates. THROAT: No erythema or exudates. NECK: No masses, no JVD, no thyroid enlargement, no adenopathy. CHEST: No chest wall deformity. Symmetrical expansion. LUNGS: Equal air entry crackles and rhonchi at the bases bilaterally. CVS:, normal S1 and S2, 2/6 systolic murmur throughout the precordium. ABDOMEN: Soft, nontender. No hepatosplenomegaly, normal bowel sounds, no guardi ng or rigidity. EXTREMITIES: No clubbing, 1+ bipedal edema, no cyanosis, 2+ pulses and upper and lower extremities. SKIN: No rashes CENTRAL NERVOUS SYSTEM: Could not be assessed, patient is paralyzed and sedated, on mechanical ventilation. Psychiatric: Could not be assessed. Patient is sedated and paralyzed - Labs CBC & Chem 7: 02/19/19 04:15 02/19/19 04:15 Labs: Abnormal Lab Results - Last 24 Hours (Table) 02/18/19 02/18/19 02/18/19 Range/Units 12:15 12:27 12:37 WBC (3.8-10.6) k/uL Neutrophils # (Manual) (1.3-7.7) k/uL Metamyelocytes # (Man) (0) k/uL Myelocytes # (Manual) (0) k/uL PT (9.0-12.0) sec INR (<1.2) APTT (22.0-30.0) sec ABG pH (7.35-7.45) ABG pCO2 (35-45) mmHg ABG pO2 (83-108) mmHg ABG HCO3 (21-25) mmol/L ABG Total CO2 (19-24) mmol/L ABG O2 Saturation (94-97) % ABG Lactic Acid (0.5-1.6) mmol/L Carbon Dioxide (22-30) mmol/L BUN (9-20) mg/dL Creatinine (0.66-1.25) mg/dL Glucose (74-99) mg/dL POC Glucose (mg/dL) 219 H (75-99) mg/dL Plasma Lactic Acid Ko 7.5 H* (0.7-2.0) mmol/L Calcium (8.4-10.2) mg/dL AST (17-59) U/L Troponin I 0.241 H* (0.000-0.034) ng/mL Total Protein (6.3-8.2) g/dL Albumin (3.5-5.0) g/dL 02/18/19 02/18/19 02/18/19 Range/Units 14:23 15:41 16:10 WBC (3.8-10.6) k/uL Neutrophils # (Manual) (1.3-7.7) k/uL Metamyelocytes # (Man) (0) k/uL Myelocytes # (Manual) (0) k/uL PT 13.1 H (9.0-12.0) sec INR 1.3 H (<1.2) APTT 33.3 H 142.6 H* (22.0-30.0) sec ABG pH (7.35-7.45) ABG pCO2 (35-45) mmHg ABG pO2 (83-108) mmHg ABG HCO3 (21-25) mmol/L ABG Total CO2 (19-24) mmol/L ABG O2 Saturation (94-97) % ABG Lactic Acid (0.5-1.6) mmol/L Carbon Dioxide (22-30) mmol/L BUN (9-20) mg/dL Creatinine (0.66-1.25) mg/dL Glucose (74-99) mg/dL POC Glucose (mg/dL) 234 H (75-99) mg/dL Plasma Lactic Acid Ko (0.7-2.0) mmol/L Calcium (8.4-10.2) mg/dL AST (17-59) U/L Troponin I (0.000-0.034) ng/mL Total Protein (6.3-8.2) g/dL Albumin (3.5-5.0) g/dL 02/18/19 02/18/19 02/18/19 Range/Units 16:10 17:03 18:09 WBC (3.8-10.6) k/uL Neutrophils # (Manual) (1.3-7.7) k/uL Metamyelocytes # (Man) (0) k/uL Myelocytes # (Manual) (0) k/uL PT (9.0-12.0) sec INR (<1.2) APTT (22.0-30.0) sec ABG pH 7.10 L* (7.35-7.45) ABG pCO2 47 H (35-45) mmHg ABG pO2 55 L* (83-108) mmHg ABG HCO3 15 L (21-25) mmol/L ABG Total CO2 16 L (19-24) mmol/L ABG O2 Saturation 79.9 L (94-97) % ABG Lactic Acid 7.8 H* (0.5-1.6) mmol/L Carbon Dioxide (22-30) mmol/L BUN (9-20) mg/dL Creatinine (0.66-1.25) mg/dL Glucose (74-99) mg/dL POC Glucose (mg/dL) 269 H (75-99) mg/dL Plasma Lactic Acid Ko (0.7-2.0) mmol/L Calcium (8.4-10.2) mg/dL AST (17-59) U/L Troponin I (0.000-0.034) ng/mL Total Protein (6.3-8.2) g/dL Albumin (3.5-5.0) g/dL 02/18/19 02/18/19 02/18/19 Range/Units 18:59 19:15 21:00 WBC (3.8-10.6) k/uL Neutrophils # (Manual) (1.3-7.7) k/uL Metamyelocytes # (Man) (0) k/uL Myelocytes # (Manual) (0) k/uL PT (9.0-12.0) sec INR (<1.2) APTT (22.0-30.0) sec ABG pH 7.15 L* (7.35-7.45) ABG pCO2 46 H (35-45) mmHg ABG pO2 57 L* (83-108) mmHg ABG HCO3 16 L (21-25) mmol/L ABG Total CO2 17 L (19-24) mmol/L ABG O2 Saturation 84.8 L (94-97) % ABG Lactic Acid 6.8 H* (0.5-1.6) mmol/L Carbon Dioxide (22-30) mmol/L BUN (9-20) mg/dL Creatinine (0.66-1.25) mg/dL Glucose (74-99) mg/dL POC Glucose (mg/dL) 273 H (75-99) mg/dL Plasma Lactic Acid Ko (0.7-2.0) mmol/L Calcium (8.4-10.2) mg/dL AST (17-59) U/L Troponin I (0.000-0.034) ng/mL Total Protein (6.3-8.2) g/dL Albumin (3.5-5.0) g/dL 02/18/19 02/18/19 02/19/19 Range/Units 21:00 23:12 00:35 WBC (3.8-10.6) k/uL Neutrophils # (Manual) (1.3-7.7) k/uL Metamyelocytes # (Man) (0) k/uL Myelocytes # (Manual) (0) k/uL PT (9.0-12.0) sec INR (<1.2) APTT (22.0-30.0) sec ABG pH 7.14 L* (7.35-7.45) ABG pCO2 49 H (35-45) mmHg ABG pO2 58 L* (83-108) mmHg ABG HCO3 17 L (21-25) mmol/L ABG Total CO2 18 L (19-24) mmol/L ABG O2 Saturation 85.9 L (94-97) % ABG Lactic Acid 7.0 H* (0.5-1.6) mmol/L Carbon Dioxide (22-30) mmol/L BUN (9-20) mg/dL Creatinine (0.66-1.25) mg/dL Glucose (74-99) mg/dL POC Glucose (mg/dL) 336 H (75-99) mg/dL Plasma Lactic Acid Ko (0.7-2.0) mmol/L Calcium (8.4-10.2) mg/dL AST (17-59) U/L Troponin I (0.000-0.034) ng/mL Total Protein (6.3-8.2) g/dL Albumin (3.5-5.0) g/dL 02/19/19 02/19/19 02/19/19 Range/Units 04:15 04:15 04:15 WBC 43.2 H (3.8-10.6) k/uL Neutrophils # (Manual) 40.60 H (1.3-7.7) k/uL Metamyelocytes # (Man) 1.30 H (0) k/uL Myelocytes # (Manual) 0.43 H (0) k/uL PT (9.0-12.0) sec INR (<1.2) APTT (22.0-30.0) sec ABG pH (7.35-7.45) ABG pCO2 (35-45) mmHg ABG pO2 (83-108) mmHg ABG HCO3 (21-25) mmol/L ABG Total CO2 (19-24) mmol/L ABG O2 Saturation (94-97) % ABG Lactic Acid (0.5-1.6) mmol/L Carbon Dioxide 18 L (22-30) mmol/L BUN 22 H (9-20) mg/dL Creatinine 1.39 H (0.66-1.25) mg/dL Glucose 431 H (74-99) mg/dL POC Glucose (mg/dL) (75-99) mg/dL Plasma Lactic Acid Ko 6.4 H* (0.7-2.0) mmol/L Calcium 6.8 L (8.4-10.2) mg/dL AST 76 H (17-59) U/L Troponin I (0.000-0.034) ng/mL Total Protein 4.3 L (6.3-8.2) g/dL Albumin 2.4 L (3.5-5.0) g/dL 02/19/19 02/19/19 02/19/19 Range/Units 05:43 07:02 10:42 WBC (3.8-10.6) k/uL Neutrophils # (Manual) (1.3-7.7) k/uL Metamyelocytes # (Man) (0) k/uL Myelocytes # (Manual) (0) k/uL PT (9.0-12.0) sec INR (<1.2) APTT (22.0-30.0) sec ABG pH 7.18 L* (7.35-7.45) ABG pCO2 55 H (35-45) mmHg ABG pO2 62 L (83-108) mmHg ABG HCO3 20 L (21-25) mmol/L ABG Total CO2 (19-24) mmol/L ABG O2 Saturation 89.6 L (94-97) % ABG Lactic Acid (0.5-1.6) mmol/L Carbon Dioxide (22-30) mmol/L BUN (9-20) mg/dL Creatinine (0.66-1.25) mg/dL Glucose (74-99) mg/dL POC Glucose (mg/dL) 412 H (75-99) mg/dL Plasma Lactic Acid Ko 8.7 H* (0.7-2.0) mmol/L Calcium (8.4-10.2) mg/dL AST (17-59) U/L Troponin I (0.000-0.034) ng/mL Total Protein (6.3-8.2) g/dL Albumin (3.5-5.0) g/dL 02/19/19 02/19/19 Range/Units 10:50 11:39 WBC (3.8-10.6) k/uL Neutrophils # (Manual) (1.3-7.7) k/uL Metamyelocytes # (Man) (0) k/uL Myelocytes # (Manual) (0) k/uL PT (9.0-12.0) sec INR (<1.2) APTT (22.0-30.0) sec ABG pH 7.16 L* (7.35-7.45) ABG pCO2 58 H (35-45) mmHg ABG pO2 69 L (83-108) mmHg ABG HCO3 (21-25) mmol/L ABG Total CO2 (19-24) mmol/L ABG O2 Saturation 91.9 L (94-97) % ABG Lactic Acid (0.5-1.6) mmol/L Carbon Dioxide (22-30) mmol/L BUN (9-20) mg/dL Creatinine (0.66-1.25) mg/dL Glucose (74-99) mg/dL POC Glucose (mg/dL) 502 H (75-99) mg/dL Plasma Lactic Acid Ko (0.7-2.0) mmol/L Calcium (8.4-10.2) mg/dL AST (17-59) U/L Troponin I (0.000-0.034) ng/mL Total Protein (6.3-8.2) g/dL Albumin (3.5-5.0) g/dL Microbiology - Last 24 Hours (Table) 02/18/19 00:30 Blood Culture - Preliminary Blood No Growth after 24 hours Assessment and Plan Assessment: Impression: 1 septic shock, most likely secondary to pneumonia. 2 profound hypotension secondary to sepsis, septic shock, and primary adrenal insufficiency. 3 acute hypoxic respiratory failure secondary to pneumonia and sepsis. 4 acute kidney injury secondary to hypotension 5 history of herpetic neuralgia 6 history of paroxysmal atrial fibrillation, presently in sinus rhythm. 7 history of coronary artery disease and previous stenting 8 history of lymphoma status post stem cell transplant 9 history of adrenal hemorrhage or adrenal mass 10 history of histoplasmosis and previous lung resection 11 history of MRSA pneumonia 12 suspect some component of interstitial lung disease/pulmonary fibrosis 13 history of depression. Recommendation: Continue ventilatory support Continue antibiotics, broad-spectrum until cultures are available. Continue Solu-Cortef at 100 mg IV push every 8 hours Continue pressors and IV fluids Continue GI and DVT prophylaxis Continue heparin. Continue to monitor closely in the intensive care unit. Prognosis is extremely poor and guarded We'll continue to follow. Critical care time is 35 minutes, Time with Patient: Greater than 30
[2019-02-19] MEDS: INSULIN REGULAR 100 UNIT in SODIUM CHLORIDE 0.9% 100 ML IV SCH ×4 (12:34→23:25)
--- NOTE | 2019-02-19 12:44 | XR ---
Abdomen HISTORY: Lactic acidosis and abdominal distention Frontal view of the abdomen submitted on 2 images Correlation to prior CT 02/17/2019 There is chondrocalcinosis within the hips. There is a levoscoliosis of the lumbar spine. Vascular ca lcifications are present and noted incidentally. There are surgical clips present in the right upper quadrant. There are overlying cardiac leads. NG tube is present with the distal tip overlying the sto mach. No evident pneumoperitoneum. Entire abdomen is not included on the exam. Patchy density present at the lung bases. IMPRESSION: Correlate for basilar pneumonia. NG tube is described.
[2019-02-19] MEDS: NOREPINEPHRINE 32 MG in SODIUM CHLORIDE 0.9% 218 ML IV SCH ×2 (12:52→21:43)
[2019-02-19 13:16] LABS: Glucose,Whole Blood 453 mg/dL (75-99)
[2019-02-19] MEDS: SODIUM CHLORIDE 0.9% 1,000 ML IV SCH (13:19)
[2019-02-19 14:19] LABS: Glucose,Whole Blood 463 mg/dL (75-99)
--- NOTE | 2019-02-19 15:13 | P.PN ---
Subjective Patient is admitted for septic shock secondary to pneumonia. Patient is also being treated for atrial fibrillation. Patient overall causing. Condition has worsened patient went into respiratory failure requiring intubation as per the wishes of the patient patient is presently on assist-control ventilation with FiO2 of 100% because of severe aci dosis patient lactic acid was very high. Patient respiratory rate was set up very high about 30. Patient is presently on Nimbex drip along with vasopressin and norepinephrine, amiodarone drips. Patient is having good urine output his creatinine is bit better now has gotten worse yesterday. Patient blood sugars are very high because of which patient is on insulin drip. Discussed with the family members the want him to be DO NOT RESUSCITATE but continue with ventilatory support for now had a lengthy discussion the family. Objective - Vital Signs Vital signs: Vital Signs Temp 98.6 F 02/19/19 12:00 Pulse 116 H 02/19/19 13:15 Resp 36 H 02/19/19 13:15 BP 96/59 02/19/19 10:30 Pulse Ox 92 L 02/19/19 13:15 Intake & Output 02/18/19 02/19/19 02/19/19 18:59 06:59 18:59 Intake Total 5537.454 2943.961 1235.222 Output Total 1320 912 800 Balance 4217.454 2031.961 435.222 Weight 87.9 kg 87.9 kg Intake: IV 1201 1172 492 Cefepime 2 gm In Sodium 100 Chloride 0.9% 100 ml @ 200 mls/hr IVPB Q12H [facility] Rx#:[id number] Magnesium Sulfate-D5w Pmx 100 100 1 gm In Dextrose/Water 1 100ml.bag @ 100 mls/hr IVPB Q1H [facility] Rx#: [id number] Normal Saline 1050 550 350 Normal Saline Pressure 51 72 42 Bag Sodium Bicarb Amp 100 100 Vancomycin 1,500 mg In 250 Sodium Chloride 0.9% 250 ml @ 125 mls/hr IVPB Q12H [facility] Rx#:[id number] Intake, IV Titration 4336.454 1771.961 743.222 Amount Amiodarone 300 mg In 250 Dextrose 5% in Water 250 ml @ 0.5 MG/MIN 25 mls/hr IV .Q10H [facility] Rx#: [id number] Amiodarone 360 mg In 50.0 33.3 Dextrose 5% in Water 200 ml @ 1 MG/MIN 33.333 mls/ hr IV .Q6H [facility] Rx#: [id number] Cefepime 2 gm In Sodium 100 Chloride 0.9% 100 ml @ 200 mls/hr IVPB Q12H [facility] Rx#:[id number] Cisatracurium 200 mg In 74.104 Sodium Chloride 0.9% 180 ml @ 1 MCG/KG/MIN 4.854 mls/hr IV .Q24H [facility] Rx#: [id number] Dextrose 5% in Water 1, 300 1200 100 000 ml @ 100 mls/hr IV . [id number] [facility] with Sodium Bicarb (1 Meq/ml) 150 ml Rx#:[id number] Dextrose 5% in Water 100 100 ml @ 618 mls/hr IV .Q10M [facility] with Amiodarone 150 mg Rx#:[id number] Heparin Sod,Pork in 0.45% 17.96 0 NaCl 25,000 unit In 0.45 % NaCl 1 250ml.bag @ 12 UNITS/KG/HR 9.708 mls/hr IV .Q24H [facility] Rx#: [id number] Insulin Regular 100 unit 45.518 In Sodium Chloride 0.9% 100 ml @ Per Protocol IV .Q0M [facility] Rx#:[id number] Magnesium Sulfate-D5w Pmx 400 1 gm In Dextrose/Water 1 100ml.bag @ 100 mls/hr IVPB Q1H [facility] Rx#: [id number] Norepinephrine 32 mg In 218.494 317.873 85.014 Sodium Chloride 0.9% 218 ml @ 0.05 MCG/KG/MIN 1. 701 mls/hr IV .Q24H [facility] Rx#:[id number] Potassium Chloride 20 meq 100 In Water For Injection 1 100ml.bag @ 50 mls/hr IVPB Q2H [facility] Rx#: [id number] Propofol 1,000 mg In 170.788 188.586 Empty Bag 1 bag @ Titrate IV .Q0M [facility] Rx#: [id number] Sodium Chloride 0.9% 1, 50 50 000 ml @ 50 mls/hr IV . Q20H [facility] Rx#:[id number] Sodium Chloride 0.9% 1, 3000 000 ml @ 999 mls/hr IV . Q1H1M [facility] Rx#:[id number] Output: Urine 1320 912 800 Other: Voiding Method Indwelling Catheter Indwelling Catheter Indwelling Catheter ABP, PAP, CO, CI - Last Documented Arterial Blood Pressure 95/41 - Exam PHYSICAL EXAMINATION: GENERAL: Patient is intubated sedated HEENT: Pupils are round and equally reacting to light. EOMI. No scleral icterus. No conjunctival pallor. Normocephalic, atraumatic. No pharyngeal erythema. No thyromegaly. CARDIOVASCULAR: S1 and S2 present. No murmurs, rubs, or gallops. Irregularly irregular rhythm tachycardic PULMONARY: Diffuse rhonchi ABDOMEN: Soft, nontender, nondistended, normoactive bowel sounds. No palpable organomegaly. MUSCULOSKELETAL: No joint swelling or deformity. EXTREMITIES: No cyanosis, clubbing, or pedal edema. NEUROLOGICAL: Patient is intubated and sedated SKIN: No rashes. - Labs CBC & Chem 7: 02/19/19 04:15 02/19/19 04:15 Labs: Abnormal Lab Results - Last 24 Hours (Table) 02/18/19 02/18/19 02/18/19 Range/Units 15:41 16:10 16:10 WBC (3.8-10.6) k/uL Neutrophils # (Manual) (1.3-7.7) k/uL Metamyelocytes # (Man) (0) k/uL Myelocytes # (Manual) (0) k/uL PT 13.1 H (9.0-12.0) sec INR 1.3 H (<1.2) APTT 33.3 H 142.6 H* (22.0-30.0) sec ABG pH (7.35-7.45) ABG pCO2 (35-45) mmHg ABG pO2 (83-108) mmHg ABG HCO3 (21-25) mmol/L ABG Total CO2 (19-24) mmol/L ABG O2 Saturation (94-97) % ABG Lactic Acid 7.8 H* (0.5-1.6) mmol/L Carbon Dioxide (22-30) mmol/L BUN (9-20) mg/dL Creatinine (0.66-1.25) mg/dL Glucose (74-99) mg/dL POC Glucose (mg/dL) (75-99) mg/dL Plasma Lactic Acid Ko (0.7-2.0) mmol/L Calcium (8.4-10.2) mg/dL AST (17-59) U/L Total Protein (6.3-8.2) g/dL Albumin (3.5-5.0) g/dL 02/18/19 02/18/19 02/18/19 Range/Units 17:03 18:09 18:59 WBC (3.8-10.6) k/uL Neutrophils # (Manual) (1.3-7.7) k/uL Metamyelocytes # (Man) (0) k/uL Myelocytes # (Manual) (0) k/uL PT (9.0-12.0) sec INR (<1.2) APTT (22.0-30.0) sec ABG pH 7.10 L* (7.35-7.45) ABG pCO2 47 H (35-45) mmHg ABG pO2 55 L* (83-108) mmHg ABG HCO3 15 L (21-25) mmol/L ABG Total CO2 16 L (19-24) mmol/L ABG O2 Saturation 79.9 L (94-97) % ABG Lactic Acid (0.5-1.6) mmol/L Carbon Dioxide (22-30) mmol/L BUN (9-20) mg/dL Creatinine (0.66-1.25) mg/dL Glucose (74-99) mg/dL POC Glucose (mg/dL) 269 H 273 H (75-99) mg/dL Plasma Lactic Acid Ko (0.7-2.0) mmol/L Calcium (8.4-10.2) mg/dL AST (17-59) U/L Total Protein (6.3-8.2) g/dL Albumin (3.5-5.0) g/dL 02/18/19 02/18/19 02/18/19 Range/Units 19:15 21:00 21:00 WBC (3.8-10.6) k/uL Neutrophils # (Manual) (1.3-7.7) k/uL Metamyelocytes # (Man) (0) k/uL Myelocytes # (Manual) (0) k/uL PT (9.0-12.0) sec INR (<1.2) APTT (22.0-30.0) sec ABG pH 7.15 L* 7.14 L* (7.35-7.45) ABG pCO2 46 H 49 H (35-45) mmHg ABG pO2 57 L* 58 L* (83-108) mmHg ABG HCO3 16 L 17 L (21-25) mmol/L ABG Total CO2 17 L 18 L (19-24) mmol/L ABG O2 Saturation 84.8 L 85.9 L (94-97) % ABG Lactic Acid 6.8 H* (0.5-1.6) mmol/L Carbon Dioxide (22-30) mmol/L BUN (9-20) mg/dL Creatinine (0.66-1.25) mg/dL Glucose (74-99) mg/dL POC Glucose (mg/dL) (75-99) mg/dL Plasma Lactic Acid Ko (0.7-2.0) mmol/L Calcium (8.4-10.2) mg/dL AST (17-59) U/L Total Protein (6.3-8.2) g/dL Albumin (3.5-5.0) g/dL 02/18/19 02/19/19 02/19/19 Range/Units 23:12 00:35 04:15 WBC 43.2 H (3.8-10.6) k/uL Neutrophils # (Manual) 40.60 H (1.3-7.7) k/uL Metamyelocytes # (Man) 1.30 H (0) k/uL Myelocytes # (Manual) 0.43 H (0) k/uL PT (9.0-12.0) sec INR (<1.2) APTT (22.0-30.0) sec ABG pH (7.35-7.45) ABG pCO2 (35-45) mmHg ABG pO2 (83-108) mmHg ABG HCO3 (21-25) mmol/L ABG Total CO2 (19-24) mmol/L ABG O2 Saturation (94-97) % ABG Lactic Acid 7.0 H* (0.5-1.6) mmol/L Carbon Dioxide (22-30) mmol/L BUN (9-20) mg/dL Creatinine (0.66-1.25) mg/dL Glucose (74-99) mg/dL POC Glucose (mg/dL) 336 H (75-99) mg/dL Plasma Lactic Acid Ko (0.7-2.0) mmol/L Calcium (8.4-10.2) mg/dL AST (17-59) U/L Total Protein (6.3-8.2) g/dL Albumin (3.5-5.0) g/dL 02/19/19 02/19/19 02/19/19 Range/Units 04:15 04:15 05:43 WBC (3.8-10.6) k/uL Neutrophils # (Manual) (1.3-7.7) k/uL Metamyelocytes # (Man) (0) k/uL Myelocytes # (Manual) (0) k/uL PT (9.0-12.0) sec INR (<1.2) APTT (22.0-30.0) sec ABG pH (7.35-7.45) ABG pCO2 (35-45) mmHg ABG pO2 (83-108) mmHg ABG HCO3 (21-25) mmol/L ABG Total CO2 (19-24) mmol/L ABG O2 Saturation (94-97) % ABG Lactic Acid (0.5-1.6) mmol/L Carbon Dioxide 18 L (22-30) mmol/L BUN 22 H (9-20) mg/dL Creatinine 1.39 H (0.66-1.25) mg/dL Glucose 431 H (74-99) mg/dL POC Glucose (mg/dL) 412 H (75-99) mg/dL Plasma Lactic Acid Ko 6.4 H* (0.7-2.0) mmol/L Calcium 6.8 L (8.4-10.2) mg/dL AST 76 H (17-59) U/L Total Protein 4.3 L (6.3-8.2) g/dL Albumin 2.4 L (3.5-5.0) g/dL 02/19/19 02/19/19 02/19/19 Range/Units 07:02 10:42 10:50 WBC (3.8-10.6) k/uL Neutrophils # (Manual) (1.3-7.7) k/uL Metamyelocytes # (Man) (0) k/uL Myelocytes # (Manual) (0) k/uL PT (9.0-12.0) sec INR (<1.2) APTT (22.0-30.0) sec ABG pH 7.18 L* 7.16 L* (7.35-7.45) ABG pCO2 55 H 58 H (35-45) mmHg ABG pO2 62 L 69 L (83-108) mmHg ABG HCO3 20 L (21-25) mmol/L ABG Total CO2 (19-24) mmol/L ABG O2 Saturation 89.6 L 91.9 L (94-97) % ABG Lactic Acid (0.5-1.6) mmol/L Carbon Dioxide (22-30) mmol/L BUN (9-20) mg/dL Creatinine (0.66-1.25) mg/dL Glucose (74-99) mg/dL POC Glucose (mg/dL) (75-99) mg/dL Plasma Lactic Acid Ko 8.7 H* (0.7-2.0) mmol/L Calcium (8.4-10.2) mg/dL AST (17-59) U/L Total Protein (6.3-8.2) g/dL Albumin (3.5-5.0) g/dL 02/19/19 02/19/19 02/19/19 Range/Units 11:39 13:15 14:17 WBC (3.8-10.6) k/uL Neutrophils # (Manual) (1.3-7.7) k/uL Metamyelocytes # (Man) (0) k/uL Myelocytes # (Manual) (0) k/uL PT (9.0-12.0) sec INR (<1.2) APTT (22.0-30.0) sec ABG pH (7.35-7.45) ABG pCO2 (35-45) mmHg ABG pO2 (83-108) mmHg ABG HCO3 (21-25) mmol/L ABG Total CO2 (19-24) mmol/L ABG O2 Saturation (94-97) % ABG Lactic Acid (0.5-1.6) mmol/L Carbon Dioxide (22-30) mmol/L BUN (9-20) mg/dL Creatinine (0.66-1.25) mg/dL Glucose (74-99) mg/dL POC Glucose (mg/dL) 502 H 453 H 463 H (75-99) mg/dL Plasma Lactic Acid Ko (0.7-2.0) mmol/L Calcium (8.4-10.2) mg/dL AST (17-59) U/L Total Protein (6.3-8.2) g/dL Albumin (3.5-5.0) g/dL Microbiology - Last 24 Hours (Table) 02/18/19 00:30 Blood Culture - Preliminary Blood No Growth after 24 hours Assessment and Plan Plan: -Acute hypoxic and hypercapnic respiratory failure secondary to septic shock patient appears to have some ARDS as well. Patient received Lasix because of ARDS patient ventilator settings as mentioned above on his current control ventilation. With very high FiO2 patient is on propofol drip along with Nimbex -Septic shock secondary to extensive bilateral pneumonia patient was recently hospitalized because of which patient is being treated for the broad-spectrum antibiotics. His sputum was positive for MRSA in the past patient probably has MRSA pneumonia will wait for the sputum cultures rate fairly waiting for the blood cultures. Patient is on pressor support patient is on both vasopressin and norepinephrine. White blood cell count is 43.2 -Acute hypoxic respiratory failure secondary to sepsis and extensive bilateral pneumonia management as mentioned above -Acute renal failure probably acute tubular necrosis and hypotension from sepsis patient will continued on IV fluids -Mildly elevated troponin secondary to A. fib and the sepsis -Atrial fibrillation with rapid ventricular rate patient is on IV heparin and amiodarone drip -Recent adrenal hemorrhage and retinal insufficiency for which patient on for the Hydrocortisone Which Will Be Continued -History of lymphoma which is in remission at this time is a concern about relapse of this lymphoma but didn't get a chance to follow-up with oncology yet -Depression Overall prognosis is extremely poor clinical condition is guarded CODE STATUS: DO NOT RESUSCITATE
[2019-02-19 16:17] LABS: Glucose,Whole Blood 430 mg/dL (75-99)
[2019-02-19] MEDS: HEPARIN SOD,PORK IN 0.45% NACL 25,000 UNIT in 0.45% NACL 1 250ML.BAG IV SCH (16:23)
[2019-02-19 17:02] LABS: Glucose,Whole Blood 439 mg/dL (75-99)
[2019-02-19] MEDS: CISATRACURIUM 200 MG in SODIUM CHLORIDE 0.9% 180 ML IV SCH (17:05)
[2019-02-19 18:21] LABS: Glucose,Whole Blood 420 mg/dL (75-99)
[2019-02-19 19:39] LABS: Glucose,Whole Blood 422 mg/dL (75-99)
[2019-02-19 21:11] LABS: Glucose,Whole Blood 428 mg/dL (75-99)
[2019-02-19] MEDS: AMIODARONE 200 MG TAB PO SCH (21:19)
[2019-02-19 22:33] LABS: Glucose,Whole Blood 372 mg/dL (75-99)
[2019-02-19 23:07] LABS: Glucose,Whole Blood 359 mg/dL (75-99)
[2019-02-20] MEDS ORDERED: AMIODARONE 360 MG in DEXTROSE 5% IN WATER 200 ML IV ONE ×2 (00:10)
[2019-02-20] MEDS ORDERED: DEXTROSE 5% IN WATER 100 ML with AMIODARONE 150 MG IV ONE (00:10)
[2019-02-20] MEDS ORDERED: ADENOSINE 3 MG/ML 2 ML VIAL IVP STA ×2 (00:16)
[2019-02-20] MEDS: CEFEPIME 2 GM in SODIUM CHLORIDE 0.9% 100 ML IVPB SCH ×2 (00:37→13:53)
[2019-02-20 00:59] LABS: Glucose,Whole Blood 331 mg/dL (75-99)
[2019-02-20] MEDS ORDERED: METOPROLOL TARTRATE 5 MG/5 ML VIAL IVP PRN (01:34)
[2019-02-20 02:00] LABS: Glucose,Whole Blood 314 mg/dL (75-99)
[2019-02-20] MEDS: INSULIN REGULAR 100 UNIT in SODIUM CHLORIDE 0.9% 100 ML IV SCH ×2 (02:01→04:29)
[2019-02-20] MEDS: FUROSEMIDE 10 MG/ML 4 ML VIAL IV SCH ×3 (02:38→19:08)
[2019-02-20 02:58] LABS: Glucose,Whole Blood 275 mg/dL (75-99)
[2019-02-20] MEDS: IPRATROPIUM-ALBUTEROL 3 ML NEB INHALATION SCH ×7 (03:18→23:50)
[2019-02-20] MEDS ORDERED: VANCOMYCIN 1,500 MG in SODIUM CHLORIDE 0.9% 250 ML IVPB SCH (04:00)
[2019-02-20 04:08] LABS: Glucose,Whole Blood 264 mg/dL (75-99)
[2019-02-20] MEDS: PROPOFOL 1,000 MG in EMPTY BAG 1 BAG IV SCH ×3 (04:31→16:30)
[2019-02-20 04:37] LABS: Basophils # (A) 0.1 k/uL (0-0.2); Basophils % (A) 0 %; Eosinophils % (A) 0 %; HCT 36.4 % (39.0-53.0); HGB 12.4 gm/dL (13.0-17.5); Lymphocytes # (A) 0.8 k/uL (1.0-4.8); Lymphocytes % (A) 2 %; MCH 31.5 pg (25.0-35.0); MCV 92.6 fL (80.0-100.0); Monocytes # (A) 21.9 k/uL (0-1.0); Monocytes % (A) 55 %; Neutrophils # (A) 14.8 k/uL (1.3-7.7); Neutrophils % (A) 37 %; Platelet Count 202 k/uL (150-450); Poikilocytosis Slight; RBC 3.94 m/uL (4.30-5.90); RDW 14.6 % (11.5-15.5); WBC 39.7 k/uL (3.8-10.6)
[2019-02-20] MEDS: DEXTROSE 5% IN WATER 1,000 ML with SODIUM BICARB (1 MEQ/ML) 150 ML IV SCH ×2 (04:38→16:32)
[2019-02-20 05:09] LABS: Glucose,Whole Blood 184 mg/dL (75-99)
[2019-02-20 05:23] LABS: Potassium 3.1 mmol/L (3.5-5.1)
[2019-02-20 05:28] LABS: Band Neutrophils % 10 %; Lymphocytes # (M) 0.79 k/uL (1.0-4.8); Neutrophils % (M) 87 %; Nucleated Red Blood Cells 0 /100 WBC (0-0); Total Cells Counted 100
[2019-02-20 05:29] LABS: Toxic Granulation Present
[2019-02-20 05:39] LABS: Calcium 6.1 mg/dL (8.4-10.2)
[2019-02-20 06:06] LABS: Glucose,Whole Blood 211 mg/dL (75-99)
[2019-02-20] MEDS: AMIODARONE 300 MG in DEXTROSE 5% IN WATER 250 ML IV SCH ×4 (06:36→16:33)
[2019-02-20] MEDS ORDERED: Potassium Replacement Protocol 1 EACH MISC MISCELLANE PRN (06:41)
[2019-02-20 06:48] LABS: Glucose,Whole Blood 147 mg/dL (75-99)
[2019-02-20] MEDS: POTASSIUM CHLORIDE 20 MEQ in WATER FOR INJECTION 1 100ML.BAG IVPB SCH ×2 (06:54→08:21)
[2019-02-20] MEDS: CALCIUM CARBONATE 500 MG CHEWABLE PO SCH ×3 (06:54→21:25)
[2019-02-20 07:20] LABS: ABG Base Excess 0.8 mmol/L; ABG HCO3 27 mmol/L (21-25); ABG Oxygen Saturation 87.3 % (94-97); ABG PCO2 50 mmHg (35-45); ABG PH 7.33 (7.35-7.45); ABG TCO2 28 mmol/L (19-24); Allen Test Performed? Yes
[2019-02-20 07:23] LABS: ABG PO2 52 mmHg (83-108)
[2019-02-20 08:03] LABS: Glucose,Whole Blood 139 mg/dL (75-99)
[2019-02-20] MEDS: HYDROCORTISONE SUCCINATE 100 MG/2 ML VIAL IV SCH ×3 (08:21→23:16)
[2019-02-20] MEDS: CHLORHEXIDINE GLUCONATE 15 ML CUP MUCOUS MEM SCH ×2 (08:21→21:00)
[2019-02-20] MEDS: POTASSIUM CHLORIDE ER 10 MEQ TAB.ER.PRT PO SCH (08:22)
[2019-02-20] MEDS: ATORVASTATIN 40 MG TAB PO SCH (08:22)
[2019-02-20] MEDS: ASPIRIN 81 MG PO SCH (08:22)
[2019-02-20] MEDS: PANTOPRAZOLE 40 MG/10 ML VIAL IV SCH (08:22)
[2019-02-20] MEDS: FLUDROCORTISONE 0.1 MG TAB PO SCH (08:22)
[2019-02-20] MEDS: AMIODARONE 200 MG TAB PO SCH ×2 (08:22→21:23)
[2019-02-20] MEDS: PREGABALIN 75 MG CAP PO SCH ×3 (08:23→21:25)
--- NOTE | 2019-02-20 08:34 | XR ---
EXAMINATION TYPE: XR chest 1V portable DATE OF EXAM: 02/20/2019 COMPARISON: Prior chest x-ray 02/19/2019 HISTORY: Intubated TECHNIQUE: Single frontal view of the chest is obtained. FINDINGS: Findings are similar to prior exam. Endotracheal tube is overlying the tracheal air column , NG tube is coursing towards the stomach, tip is not included on the exam however. Central venous ca theter is overlying appropriate position. Pleural parenchymal changes are similar to prior exam, post op changes and overlying cardiac leads again noted. No evident pneumothorax. Heart size is unchanged. IMPRESSION: Findings similar to prior exam, correlate for congestive heart failure, pneumonia, ARDS. There may be pleural effusions.
[2019-02-20 08:36] LABS: Ionized Calcium 3.6 mg/dL (4.5-5.3)
--- NOTE | 2019-02-20 08:49 | PN ---
PROGRESS NOTE Mr. Phillips is here with possible sepsis, respiratory failure and pneumonia. Yesterday, I was told that he had some E coli, but I do not believe there is any E coli growing from the blood, but urine. He, however, is on a ventilator, atrial fibrillation with a very rapid ventricular rate in spite of amiodarone. His urine output has decreased and his creatinine is going up. Overall, patient is not doing well and developing multi-system failure. He is on multiple pressors and amiodarone. Blood pressure is about 110 systolic heart rate is about 130. JVD is evident. S1, S2 with tachycardia noted, short systolic murmur noted. Lungs reveal diminished air entry. Abdomen and lower extremity exam unchanged. Plan is to continue current medication. Given the overall poor prognosis, the patient will probably be made comfort care. He is currently a DNR. Cardiac-marroquin, no other recommendations other than using amiodarone for rate control and pressors to support his blood pressure. Prognosis is poor. MMODL / IJN: [id number] /
[2019-02-20 09:23] LABS: Glucose,Whole Blood 104 mg/dL (75-99)
[2019-02-20 09:59] LABS: Glucose,Whole Blood 111 mg/dL (75-99)
[2019-02-20 11:25] LABS: Glucose,Whole Blood 88 mg/dL (75-99)
[2019-02-20] MEDS: SODIUM CHLORIDE 0.9% 1,000 ML IV SCH (11:25)
[2019-02-20 12:03] LABS: Glucose,Whole Blood 107 mg/dL (75-99)
--- NOTE | 2019-02-20 12:30 | P.PN ---
Subjective Progress Note Date: 02/20/19 Principal diagnosis: Septic shock. This is a 73-year-old white male, familiar to my service, patient was admitted to the hospital on 01/28/2019, and discharged home on 02/01/2019. Patient was admitted with aspiration pneumonia, hypertension, atrial fibrillation with RVR requiring cardioversion, and at that time he was found to have adrenal hematoma. And felt that the patient may have adrenal insufficiency. All the issues where addressed, patient was in the ICU for a few days, and he turned around nicely. And he was supposedly discharged home on Lasix, aspirin, metformin, metoprolol, atorvastatin, insulin, albuterol with Atrovent updrafts, Lyrica, Singulair, Zovirax, Augmentin, Eliquis, Florinef, and hydrocortisone/Cortef 20 mg by mouth twice a day. Apparently the patient was advised to have follow-up with his primary care physician and follow-up with me. I saw this patient 2 days ago, and he was doing extremely well. His chest x-ray was reassuring and this was last week. Apparently over the weekend, the patient developed multiple confusional symptoms including low-grade fever, nausea, vomiting, weakness, and shortness of breath. Patient was noted to have hypotension in the ER. He had lactic acidosis, and clinically was septic. Central line was placed by the ER physician, placed empirically on antibiotics in the form of cefepime, Levaquin, and vancomycin. Chest x-ray showed bilateral infiltrates. Patient was given Solu-Cortef early this morning, and looking at the notes, patient may have stopped his Cortef and apparently he did not have a follow-up with endocrinology because of his adrenal insufficiency and all felt to be related to his renal hematoma. His condition deteriorated overnight, patient was admitted to the ICU on BiPAP with 100% FiO2, IPAP of 14, EPAP of 6, and his initial ABG showed significant metabolic acidosis and the relative hypoxemia. The patient received bicarb. Received more Solu-Cortef, and kept on antibiotics as well as IV fluids. CVP is about 8 at present. After evaluating the patient, a left radial arterial line was placed for blood pressure monitoring. And the patient was on norepinephrine initially at 0.7 mcg/kg/m. This is now being titrated. Looking back at his last admission, patient had a similar presentation with hypotension, however he responded well to Solu-Cortef and Florinef. 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 Patient was evaluated today on 02/19/2019, patient took a downhill course yesterday, and late in the afternoon I had to intubate the patient because of worsening oxygenation, worsening chest x-ray, and persistent hypotension. Winter ayoub was intubated, placed on mechanical ventilation, and he is now on mechanical ventilation with assist control rate of 36. tidal volume of 450 FiO2 on the percent, and PEEP has been increased gradually from 5-14 this morning. ABG this morning showed a pO2 of 69 pCO2 of 58 pH of 7.16. Continues to have worsening lactic acidosis, his sugar is 502 today, and he'll be placed on insulin drip. In the meantime the patient is on norepinephrine at 0.45 mcg/kg/m, propofol at 50 mcg/kg/m, heparin drip, bicarbonate drip, Nimbex drip, amiodarone drip, vasopressin drip, and intermittent morphine sulfate while on Nimbex. His WBC count jumped today up to 43.2. Reevaluated today on 02/20/2019, patient remains in the ICU, intubated and mechanically ventilated. Family is at bedside, patient is not doing well today. Remains on assist control rate of 36, tidal volume 450 FiO2 100% and PEEP increased to 16. Remains on multiple drips including norepinephrine at 1 mcg/kg/m, bicarb drip, Nimbex, vasopressin, peak airway pressure is about 38, plateau pressure on the ventilator is 31. Obviously the patient is developing worsening picture of ARDS. ABG this morning showed a pO2 of 52 pCO2 of 50 pH of 7.33. Continues to have leukocytosis with WBC count of 39.7 hemoglobin is 12.4 PTT is elevated, patient remains on heparin drip for atrial fibrillation. Patient remains in atrial fibrillation with RVR, presently on amiodarone drip again as recommended by cardiology. Urine output remains marginal. Renal functioning is worsening BUN is 35 creatinine 2.44. Obviously the patient developed acute kidney injury and multiorgan system failure. Objective - Vital Signs Vital signs: Vital Signs Temp 98.9 F 02/20/19 08:00 Pulse 158 H 01/15/20 12:00 Resp 36 H 02/20/19 12:00 BP 96/59 02/20/19 10:00 Pulse Ox 86 L 02/20/19 12:00 Intake & Output 02/19/19 02/20/19 02/20/19 18:59 06:59 18:59 Intake Total 2846.546 3153.620 1113.59 Output Total 960 363 151 Balance 2031.697 3718.620 962.59 Weight 87.9 kg 93.8 kg Intake: IV 1622 2222 936 Cefepime 2 gm In Sodium 100 100 Chloride 0.9% 100 ml @ 200 mls/hr IVPB Q12H [facility] Rx#:[id number] Magnesium Sulfate-D5w Pmx 100 1 gm In Dextrose/Water 1 100ml.bag @ 100 mls/hr IVPB Q1H [facility] Rx#: [id number] Normal Saline 600 600 300 Normal Saline Pressure 72 72 36 Bag Sodium Bicarb Amp 500 1200 600 Vancomycin 1,500 mg In 250 250 Sodium Chloride 0.9% 250 ml @ 125 mls/hr IVPB Q12H [facility] Rx#:[id number] Intake, IV Titration 1224.546 731.620 117.59 Amount Amiodarone 300 mg In 250 Dextrose 5% in Water 250 ml @ 0.5 MG/MIN 25 mls/hr IV .Q10H [facility] Rx#: [id number] Cisatracurium 200 mg In 153.710 Sodium Chloride 0.9% 180 ml @ 1 MCG/KG/MIN 4.854 mls/hr IV .Q24H [facility] Rx#: [id number] Dextrose 5% in Water 1, 100 000 ml @ 100 mls/hr IV . [id number] [facility] with Sodium Bicarb (1 Meq/ml) 150 ml Rx#:[id number] Heparin Sod,Pork in 0.45% 106.418 81.063 0 NaCl 25,000 unit In 0.45 % NaCl 1 250ml.bag @ 12 UNITS/KG/HR 9.708 mls/hr IV .Q24H [facility] Rx#: [id number] Insulin Regular 100 unit 169.007 416.155 17.59 In Sodium Chloride 0.9% 100 ml @ Per Protocol IV .Q0M [facility] Rx#:[id number] Norepinephrine 32 mg In 162.172 134.402 Sodium Chloride 0.9% 218 ml @ 0.05 MCG/KG/MIN 1. 701 mls/hr IV .Q24H [facility] Rx#:[id number] Propofol 1,000 mg In 283.239 100 100 Empty Bag 1 bag @ Titrate IV .Q0M [facility] Rx#: [id number] Tube Feeding 110 60 Other 90 Output: Urine 960 363 151 Other: Voiding Method Indwelling Catheter Indwelling Catheter Indwelling Catheter ABP, PAP, CO, CI - Last Documented Arterial Blood Pressure 76/50 - Exam GENERAL EXAM: Revealed 73-year-old white male sedated and paralyzed, on mechanical ventilation. HEAD: Normocephalic/atraumatic. EYES: Normal reaction of pupils, equal size. Conjunctiva pink, sclera white. NOSE: Clear with pink turbinates. THROAT: No erythema or exudates. NECK: No masses, no JVD, no thyroid enlargement, no adenopathy. CHEST: No chest wall deformity. Symmetrical expansion. LUNGS: Equal air entry crackles and rhonchi at the bases bilaterally. CVS:, Irregular irregular rhythm, tachycardic, normal S1 and S2, 2/6 systolic murmur throughout the precordium. ABDOMEN: Soft, nontender. No hepatosplenomegaly, normal bowel sounds, no guarding or rigidity. EXTREMITIES: No clubbing, 1+ bipedal edema, no cyanosis, 2+ pulses and upper and lower extremities. SKIN: No rashes CENTRAL NERVOUS SYSTEM: Could not be assessed, remains paralyzed. And sedated. Psychiatric: Could not be assessed. Remains paralyzed and sedated - Labs CBC & Chem 7: 02/20/19 04:00 02/20/19 04:00 Labs: Abnormal Lab Results - Last 24 Hours (Table) 02/19/19 02/19/19 02/19/19 Range/Units 13:15 14:17 15:20 WBC (3.8-10.6) k/uL RBC (4.30-5.90) m/uL Hgb (13.0-17.5) gm/dL Hct (39.0-53.0) % Neutrophils # (1.3-7.7) k/uL Neutrophils # (Manual) (1.3-7.7) k/uL Lymphocytes # (1.0-4.8) k/uL Lymphocytes # (Manual) (1.0-4.8) k/uL Monocytes # (0-1.0) k/uL APTT (22.0-30.0) sec ABG pH (7.35-7.45) ABG pCO2 (35-45) mmHg ABG pO2 (83-108) mmHg ABG HCO3 (21-25) mmol/L ABG Total CO2 (19-24) mmol/L ABG O2 Saturation (94-97) % Potassium (3.5-5.1) mmol/L BUN (9-20) mg/dL Creatinine (0.66-1.25) mg/dL Glucose (74-99) mg/dL POC Glucose (mg/dL) 453 H 463 H (75-99) mg/dL Plasma Lactic Acid Ko 8.2 H* (0.7-2.0) mmol/L Calcium (8.4-10.2) mg/dL Ionized Calcium Clare (4.5-5.3) mg/dL 02/19/19 02/19/19 02/19/19 Range/Units 16:15 17:01 18:19 WBC (3.8-10.6) k/uL RBC (4.30-5.90) m/uL Hgb (13.0-17.5) gm/dL Hct (39.0-53.0) % Neutrophils # (1.3-7.7) k/uL Neutrophils # (Manual) (1.3-7.7) k/uL Lymphocytes # (1.0-4.8) k/uL Lymphocytes # (Manual) (1.0-4.8) k/uL Monocytes # (0-1.0) k/uL APTT (22.0-30.0) sec ABG pH (7.35-7.45) ABG pCO2 (35-45) mmHg ABG pO2 (83-108) mmHg ABG HCO3 (21-25) mmol/L ABG Total CO2 (19-24) mmol/L ABG O2 Saturation (94-97) % Potassium (3.5-5.1) mmol/L BUN (9-20) mg/dL Creatinine (0.66-1.25) mg/dL Glucose (74-99) mg/dL POC Glucose (mg/dL) 430 H 439 H 420 H (75-99) mg/dL Plasma Lactic Acid Ko (0.7-2.0) mmol/L Calcium (8.4-10.2) mg/dL Ionized Calcium Clare (4.5-5.3) mg/dL 02/19/19 02/19/19 02/19/19 Range/Units 19:37 21:09 21:30 WBC (3.8-10.6) k/uL RBC (4.30-5.90) m/uL Hgb (13.0-17.5) gm/dL Hct (39.0-53.0) % Neutrophils # (1.3-7.7) k/uL Neutrophils # (Manual) (1.3-7.7) k/uL Lymphocytes # (1.0-4.8) k/uL Lymphocytes # (Manual) (1.0-4.8) k/uL Monocytes # (0-1.0) k/uL APTT 83.6 H (22.0-30.0) sec ABG pH (7.35-7.45) ABG pCO2 (35-45) mmHg ABG pO2 (83-108) mmHg ABG HCO3 (21-25) mmol/L ABG Total CO2 (19-24) mmol/L ABG O2 Saturation (94-97) % Potassium (3.5-5.1) mmol/L BUN (9-20) mg/dL Creatinine (0.66-1.25) mg/dL Glucose (74-99) mg/dL POC Glucose (mg/dL) 422 H 428 H (75-99) mg/dL Plasma Lactic Acid Ko (0.7-2.0) mmol/L Calcium (8.4-10.2) mg/dL Ionized Calcium Clare (4.5-5.3) mg/dL 02/19/19 02/19/19 02/20/19 Range/Units 22:32 23:06 00:58 WBC (3.8-10.6) k/uL RBC (4.30-5.90) m/uL Hgb (13.0-17.5) gm/dL Hct (39.0-53.0) % Neutrophils # (1.3-7.7) k/uL Neutrophils # (Manual) (1.3-7.7) k/uL Lymphocytes # (1.0-4.8) k/uL Lymphocytes # (Manual) (1.0-4.8) k/uL Monocytes # (0-1.0) k/uL APTT (22.0-30.0) sec ABG pH (7.35-7.45) ABG pCO2 (35-45) mmHg ABG pO2 (83-108) mmHg ABG HCO3 (21-25) mmol/L ABG Total CO2 (19-24) mmol/L ABG O2 Saturation (94-97) % Potassium (3.5-5.1) mmol/L BUN (9-20) mg/dL Creatinine (0.66-1.25) mg/dL Glucose (74-99) mg/dL POC Glucose (mg/dL) 372 H 359 H 331 H (75-99) mg/dL Plasma Lactic Acid Ko (0.7-2.0) mmol/L Calcium (8.4-10.2) mg/dL Ionized Calcium Clare (4.5-5.3) mg/dL 02/20/19 02/20/19 02/20/19 Range/Units 01:59 02:56 04:00 WBC 39.7 H (3.8-10.6) k/uL RBC 3.94 L (4.30-5.90) m/uL Hgb 12.4 L (13.0-17.5) gm/dL Hct 36.4 L (39.0-53.0) % Neutrophils # 14.8 H (1.3-7.7) k/uL Neutrophils # (Manual) 38.50 H (1.3-7.7) k/uL Lymphocytes # 0.8 L (1.0-4.8) k/uL Lymphocytes # (Manual) 0.79 L (1.0-4.8) k/uL Monocytes # 21.9 H (0-1.0) k/uL APTT (22.0-30.0) sec ABG pH (7.35-7.45) ABG pCO2 (35-45) mmHg ABG pO2 (83-108) mmHg ABG HCO3 (21-25) mmol/L ABG Total CO2 (19-24) mmol/L ABG O2 Saturation (94-97) % Potassium (3.5-5.1) mmol/L BUN (9-20) mg/dL Creatinine (0.66-1.25) mg/dL Glucose (74-99) mg/dL POC Glucose (mg/dL) 314 H 275 H (75-99) mg/dL Plasma Lactic Acid Ko (0.7-2.0) mmol/L Calcium (8.4-10.2) mg/dL Ionized Calcium Clare (4.5-5.3) mg/dL 02/20/19 02/20/19 02/20/19 Range/Units 04:00 04:00 04:07 WBC (3.8-10.6) k/uL RBC (4.30-5.90) m/uL Hgb (13.0-17.5) gm/dL Hct (39.0-53.0) % Neutrophils # (1.3-7.7) k/uL Neutrophils # (Manual) (1.3-7.7) k/uL Lymphocytes # (1.0-4.8) k/uL Lymphocytes # (Manual) (1.0-4.8) k/uL Monocytes # (0-1.0) k/uL APTT 105.6 H* (22.0-30.0) sec ABG pH (7.35-7.45) ABG pCO2 (35-45) mmHg ABG pO2 (83-108) mmHg ABG HCO3 (21-25) mmol/L ABG Total CO2 (19-24) mmol/L ABG O2 Saturation (94-97) % Potassium 3.1 L (3.5-5.1) mmol/L BUN 35 H (9-20) mg/dL Creatinine 2.44 H (0.66-1.25) mg/dL Glucose 196 H (74-99) mg/dL POC Glucose (mg/dL) 264 H (75-99) mg/dL Plasma Lactic Acid Ko (0.7-2.0) mmol/L Calcium 6.1 L* (8.4-10.2) mg/dL Ionized Calcium Clare (4.5-5.3) mg/dL 02/20/19 02/20/19 02/20/19 Range/Units 05:08 06:04 06:33 WBC (3.8-10.6) k/uL RBC (4.30-5.90) m/uL Hgb (13.0-17.5) gm/dL Hct (39.0-53.0) % Neutrophils # (1.3-7.7) k/uL Neutrophils # (Manual) (1.3-7.7) k/uL Lymphocytes # (1.0-4.8) k/uL Lymphocytes # (Manual) (1.0-4.8) k/uL Monocytes # (0-1.0) k/uL APTT (22.0-30.0) sec ABG pH (7.35-7.45) ABG pCO2 (35-45) mmHg ABG pO2 (83-108) mmHg ABG HCO3 (21-25) mmol/L ABG Total CO2 (19-24) mmol/L ABG O2 Saturation (94-97) % Potassium (3.5-5.1) mmol/L BUN (9-20) mg/dL Creatinine (0.66-1.25) mg/dL Glucose (74-99) mg/dL POC Glucose (mg/dL) 184 H 211 H (75-99) mg/dL Plasma Lactic Acid Ko (0.7-2.0) mmol/L Calcium (8.4-10.2) mg/dL Ionized Calcium Clare 3.6 L (4.5-5.3) mg/dL 02/20/19 02/20/19 02/20/19 Range/Units 06:47 07:14 08:01 WBC (3.8-10.6) k/uL RBC (4.30-5.90) m/uL Hgb (13.0-17.5) gm/dL Hct (39.0-53.0) % Neutrophils # (1.3-7.7) k/uL Neutrophils # (Manual) (1.3-7.7) k/uL Lymphocytes # (1.0-4.8) k/uL Lymphocytes # (Manual) (1.0-4.8) k/uL Monocytes # (0-1.0) k/uL APTT (22.0-30.0) sec ABG pH 7.33 L (7.35-7.45) ABG pCO2 50 H (35-45) mmHg ABG pO2 52 L* (83-108) mmHg ABG HCO3 27 H (21-25) mmol/L ABG Total CO2 28 H (19-24) mmol/L ABG O2 Saturation 87.3 L (94-97) % Potassium (3.5-5.1) mmol/L BUN (9-20) mg/dL Creatinine (0.66-1.25) mg/dL Glucose (74-99) mg/dL POC Glucose (mg/dL) 147 H 139 H (75-99) mg/dL Plasma Lactic Acid Ko (0.7-2.0) mmol/L Calcium (8.4-10.2) mg/dL Ionized Calcium Clare (4.5-5.3) mg/dL 02/20/19 02/20/19 02/20/19 Range/Units 09:21 09:57 12:01 WBC (3.8-10.6) k/uL RBC (4.30-5.90) m/uL Hgb (13.0-17.5) gm/dL Hct (39.0-53.0) % Neutrophils # (1.3-7.7) k/uL Neutrophils # (Manual) (1.3-7.7) k/uL Lymphocytes # (1.0-4.8) k/uL Lymphocytes # (Manual) (1.0-4.8) k/uL Monocytes # (0-1.0) k/uL APTT (22.0-30.0) sec ABG pH (7.35-7.45) ABG pCO2 (35-45) mmHg ABG pO2 (83-108) mmHg ABG HCO3 (21-25) mmol/L ABG Total CO2 (19-24) mmol/L ABG O2 Saturation (94-97) % Potassium (3.5-5.1) mmol/L BUN (9-20) mg/dL Creatinine (0.66-1.25) mg/dL Glucose (74-99) mg/dL POC Glucose (mg/dL) 104 H 111 H 107 H (75-99) mg/dL Plasma Lactic Acid Ko (0.7-2.0) mmol/L Calcium (8.4-10.2) mg/dL Ionized Calcium Clare (4.5-5.3) mg/dL Microbiology - Last 24 Hours (Table) 02/19/19 10:10 Gram Stain - Preliminary Sputum Sputum Culture - Preliminary 02/18/19 00:30 Blood Culture - Preliminary Blood No Growth after 48 hours Assessment and Plan Assessment: Impression: 1 septic shock, most likely secondary to pneumonia. 2 profound hypotension secondary to sepsis, septic shock, and primary adrenal insufficiency. 3 acute hypoxic respiratory failure secondary to pneumonia and sepsis. 4 acute kidney injury secondary to hypotension 5 history of herpetic neuralgia 6 history of paroxysmal atrial fibrillation, presently in sinus rhythm. 7 history of coronary artery disease and previous stenting 8 history of lymphoma status post stem cell transplant 9 history of adrenal hemorrhage or adrenal mass 10 history of histoplasmosis and previous lung resection 11 history of MRSA pneumonia 12 suspect some component of interstitial lung disease/pulmonary fibrosis 13 history of depression. 14 ARDS secondary to sepsis with multisystem organ failure. Recommendation: Continue ventilatory support, patient remains on high PEEP and high FiO2. Unable to titrate FiO2 down because his pO2 is marginal. Continue antibiotics, broad-spectrum, blood cultures and sputum cultures are nondiagnostic so far. Continue Solu-Cortef at 100 mg IV push every 8 hours Continue pressors and IV fluids Continue GI and DVT prophylaxis Continue heparin. Patient remains in atrial fibrillation with RVR. Continue to monitor closely in the intensive care unit. Prognosis is extremely poor and guarded We'll continue to follow. I had another long discussion with family members including the today, and updated the on his condition, patient is presently DO NOT RESUSCITATE CODE STATUS, and if in the next 24 hours no major improvement is noted, is willing to consider terminal care and comfort care measures. Patient has extremely poor prognosis. And his condition seems to be worsening on a daily basis. Not much has been improvement since admission. Mortality is over 95% considering his clinical picture. Critical care time is 40 minutes. Time with Patient: Greater than 30
[2019-02-20 13:03] LABS: Glucose,Whole Blood 86 mg/dL (75-99)
[2019-02-20 14:04] LABS: Glucose,Whole Blood 86 mg/dL (75-99)
--- NOTE | 2019-02-20 14:06 | P.GSCN ---
History of Present Illness Consult date: 02/20/19 Reason for Consult: ischemic bowel Requesting physician: Bridgett Montes History of present illness: CHIEF COMPLAINT: possible ischemic bowel HISTORY OF PRESENT ILLNESS: 73-year-old male who was originally admitted to the hospital secondary to septic shock and pneumonia. General surgery was consulted to evaluate for possible ischemic bowel. Patient evaluated by Dr. Mosqueda in the ICU. Patient is doing rather poorly. He is on mechanical ventilation with 100% FiO2. PO2 on blood gases this morning was 52. Patient is paralyzed and Nimbex. He is also on Levophed and vasopressin for blood pressure support. WBC 39.7. Lactic acid 6.1. PAST MEDICAL HISTORY: See list. PAST SURGICAL HISTORY: See list. SOCIAL HISTORY: No illicit drug use. REVIEW OF SYSTEMS: Unable to obtain secondary to mechanical ventilation PHYSICAL EXAM: VITAL SIGNS: Reviewed. GENERAL: Well-developed in no acute distress. HEENT: No sclera icterus. Extraocular movements grossly intact. Moist buccal mucosa. Head is atraumatic, normocephalic. ABDOMEN: Soft. Mildly distended. Positive bowel sounds. NEUROLOGIC: On mechanical ventilation LABORATORY DATA: WBC 39.7. Hemoglobin 12.4. Platelet count 202. Sodium 138. Potassium 3.1. BUN 35. Creatinine 2.44. IMAGING: Abdominal x-ray: Correlate for basilar pneumonia. NG tube present with distal tip overlying the stomach. ASSESSMENT: 1. Septic shock 2. Lactic acidosis 3. Suspected ischemic bowel PLAN: Patient remains critically ill. His prognosis remains very poor. He would likely not survive surgical intervention at this time. Family is considering comfort care measures at this time. Nurse practitioner note has been reviewed by physician. Signing provider agrees with the documented findings, assessment, and plan of care. Past Medical History Past Medical History: Coronary Artery Disease (CAD), Cancer, Diabetes Mellitus, Hypertension, Pneumonia Additional Past Medical History / Comment(s): lymphoma 4 times-yrs since chemo and radiation. Has a history of histoplasmosis which required the lung r esection -HAS SOME SOB. hernia Last Myocardial Infarction Date:: unknown History of Any Multi-Drug Resistant Organisms: MRSA Year Discovered:: 05/09/18 MDRO Source:: MRSA SPUTUM Past Surgical History: Cholecystectomy, Heart Catheterization With Stent, Hernia Repair Additional Past Surgical History / Comment(s): stem cell transplant/ LUNG RESECTION. 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 Past Anesthesia/Blood Transfusion Reactions: No Reported Reaction Additional Past Anesthesia/Blood Transfusion Reaction / Comm: no hx blood transfusion Date of Last Stent Placement:: 01-10-2013 Past Psychological History: No Psychological Hx Reported Additional Psychological History / Comment(s): Pt resides with his spouse. He uses no assistive device. He drives. Smoking Status: Never smoker Past Alcohol Use History: None Reported Past Drug Use History: None Reported - Past Family History Mother Family Medical History: No Reported History Additional Family Medical History / Comment(s): Mother from a strangulated hernia at the age of 68yrs Father Additional Family Medical History / Comment(s): Father of a "ruptured" heart at the age of 72 yrs. Medications and Allergies Home Medications Medication Instructions Recorded Confirmed Type Furosemide [Lasix] 20 mg PO DAILY 08/25/16 02/18/19 History Aspirin [Adult Low Dose Aspirin EC] 81 mg PO DAILY 10/27/16 02/18/19 History Multivit-Min/FA/Lycopen/Lutein 1 tab PO DAILY 07/26/17 02/18/19 History [Centrum Silver Men Tablet] metFORMIN HCL [Glucophage] 500 mg PO AC-BID 07/26/17 02/18/19 History Metoprolol Tartrate [Lopressor] 12.5 mg PO BID 09/15/17 02/18/19 History Atorvastatin [Lipitor] 40 mg PO DAILY 04/30/18 02/18/19 History Insulin Glargine,Hum.rec.anlog 24 units SQ HS 04/30/18 02/18/19 History [Toujeo Solostar] Ipratropium-Albuterol Nebulize 3 ml INHALATION RT-Q6H PRN 05/08/18 02/18/19 History [Duoneb 0.5 mg-3 mg/3 ml Soln] Potassium Chloride ER [K-Dur 10] 10 meq PO DAILY 05/08/18 02/18/19 History Acetaminophen-Codeine 300-30mg 1 - 2 tab PO Q4HR PRN 01/28/19 02/18/19 History [Tylenol w/codeine #3] Montelukast Sodium [Singulair] 10 mg PO HS 01/28/19 02/18/19 History Pregabalin [Lyrica] 75 mg PO TID 01/28/19 02/18/19 History Acyclovir [Zovirax] 400 mg PO BID #14 cap 02/01/19 02/18/19 Rx Apixaban [Eliquis] 5 mg PO BID #60 tab 02/01/19 02/18/19 Rx Famotidine [Pepcid] 20 mg PO BID #20 tab 02/01/19 02/18/19 Rx Fludrocortisone [Florinef] 0.1 mg PO DAILY #30 tab 02/01/19 02/18/19 Rx Hydrocortisone [Cortef] 20 mg PO BID #30 tab 02/01/19 02/18/19 Rx Allergies Allergy/AdvReac Type Severity Reaction Status Date / Time No Known Allergies Allergy Verified 02/18/19 12:08 Surgical - Exam Vital Signs Temp Pulse Resp BP Pulse Ox 100.9 F H 108 H 18 135/69 92 L 02/17/19 22:13 02/17/19 22:13 02/17/19 22:13 02/17/19 22:13 02/17/19 22:13 Results - Labs 02/20/19 04:00 02/20/19 04:00 Abnormal Lab Results - Last 24 Hours (Table) 02/19/19 02/19/19 02/19/19 Range/Units 14:17 15:20 16:15 WBC (3.8-10.6) k/uL RBC (4.30-5.90) m/uL Hgb (13.0-17.5) gm/dL Hct (39.0-53.0) % Neutrophils # (1.3-7.7) k/uL Neutrophils # (Manual) (1.3-7.7) k/uL Lymphocytes # (1.0-4.8) k/uL Lymphocytes # (Manual) (1.0-4.8) k/uL Monocytes # (0-1.0) k/uL APTT (22.0-30.0) sec ABG pH (7.35-7.45) ABG pCO2 (35-45) mmHg ABG pO2 (83-108) mmHg ABG HCO3 (21-25) mmol/L ABG Total CO2 (19-24) mmol/L ABG O2 Saturation (94-97) % Potassium (3.5-5.1) mmol/L BUN (9-20) mg/dL Creatinine (0.66-1.25) mg/dL Glucose (74-99) mg/dL POC Glucose (mg/dL) 463 H 430 H (75-99) mg/dL Plasma Lactic Acid Ko 8.2 H* (0.7-2.0) mmol/L Calcium (8.4-10.2) mg/dL Ionized Calcium Clare (4.5-5.3) mg/dL 02/19/19 02/19/19 02/19/19 Range/Units 17:01 18:19 19:37 WBC (3.8-10.6) k/uL RBC (4.30-5.90) m/uL Hgb (13.0-17.5) gm/dL Hct (39.0-53.0) % Neutrophils # (1.3-7.7) k/uL Neutrophils # (Manual) (1.3-7.7) k/uL Lymphocytes # (1.0-4.8) k/uL Lymphocytes # (Manual) (1.0-4.8) k/uL Monocytes # (0-1.0) k/uL APTT (22.0-30.0) sec ABG pH (7.35-7.45) ABG pCO2 (35-45) mmHg ABG pO2 (83-108) mmHg ABG HCO3 (21-25) mmol/L ABG Total CO2 (19-24) mmol/L ABG O2 Saturation (94-97) % Potassium (3.5-5.1) mmol/L BUN (9-20) mg/dL Creatinine (0.66-1.25) mg/dL Glucose (74-99) mg/dL POC Glucose (mg/dL) 439 H 420 H 422 H (75-99) mg/dL Plasma Lactic Acid Ko (0.7-2.0) mmol/L Calcium (8.4-10.2) mg/dL Ionized Calcium Clare (4.5-5.3) mg/dL 02/19/19 02/19/19 02/19/19 Range/Units 21:09 21:30 22:32 WBC (3.8-10.6) k/uL RBC (4.30-5.90) m/uL Hgb (13.0-17.5) gm/dL Hct (39.0-53.0) % Neutrophils # (1.3-7.7) k/uL Neutrophils # (Manual) (1.3-7.7) k/uL Lymphocytes # (1.0-4.8) k/uL Lymphocytes # (Manual) (1.0-4.8) k/uL Monocytes # (0-1.0) k/uL APTT 83.6 H (22.0-30.0) sec ABG pH (7.35-7.45) ABG pCO2 (35-45) mmHg ABG pO2 (83-108) mmHg ABG HCO3 (21-25) mmol/L ABG Total CO2 (19-24) mmol/L ABG O2 Saturation (94-97) % Potassium (3.5-5.1) mmol/L BUN (9-20) mg/dL Creatinine (0.66-1.25) mg/dL Glucose (74-99) mg/dL POC Glucose (mg/dL) 428 H 372 H (75-99) mg/dL Plasma Lactic Acid Ko (0.7-2.0) mmol/L Calcium (8.4-10.2) mg/dL Ionized Calcium Clare (4.5-5.3) mg/dL 02/19/19 02/20/19 02/20/19 Range/Units 23:06 00:58 01:59 WBC (3.8-10.6) k/uL RBC (4.30-5.90) m/uL Hgb (13.0-17.5) gm/dL Hct (39.0-53.0) % Neutrophils # (1.3-7.7) k/uL Neutrophils # (Manual) (1.3-7.7) k/uL Lymphocytes # (1.0-4.8) k/uL Lymphocytes # (Manual) (1.0-4.8) k/uL Monocytes # (0-1.0) k/uL APTT (22.0-30.0) sec ABG pH (7.35-7.45) ABG pCO2 (35-45) mmHg ABG pO2 (83-108) mmHg ABG HCO3 (21-25) mmol/L ABG Total CO2 (19-24) mmol/L ABG O2 Saturation (94-97) % Potassium (3.5-5.1) mmol/L BUN (9-20) mg/dL Creatinine (0.66-1.25) mg/dL Glucose (74-99) mg/dL POC Glucose (mg/dL) 359 H 331 H 314 H (75-99) mg/dL Plasma Lactic Acid Ko (0.7-2.0) mmol/L Calcium (8.4-10.2) mg/dL Ionized Calcium Clare (4.5-5.3) mg/dL 02/20/19 02/20/19 02/20/19 Range/Units 02:56 04:00 04:00 WBC 39.7 H (3.8-10.6) k/uL RBC 3.94 L (4.30-5.90) m/uL Hgb 12.4 L (13.0-17.5) gm/dL Hct 36.4 L (39.0-53.0) % Neutrophils # 14.8 H (1.3-7.7) k/uL Neutrophils # (Manual) 38.50 H (1.3-7.7) k/uL Lymphocytes # 0.8 L (1.0-4.8) k/uL Lymphocytes # (Manual) 0.79 L (1.0-4.8) k/uL Monocytes # 21.9 H (0-1.0) k/uL APTT (22.0-30.0) sec ABG pH (7.35-7.45) ABG pCO2 (35-45) mmHg ABG pO2 (83-108) mmHg ABG HCO3 (21-25) mmol/L ABG Total CO2 (19-24) mmol/L ABG O2 Saturation (94-97) % Potassium 3.1 L (3.5-5.1) mmol/L BUN 35 H (9-20) mg/dL Creatinine 2.44 H (0.66-1.25) mg/dL Glucose 196 H (74-99) mg/dL POC Glucose (mg/dL) 275 H (75-99) mg/dL Plasma Lactic Acid Ko (0.7-2.0) mmol/L Calcium 6.1 L* (8.4-10.2) mg/dL Ionized Calcium Clare (4.5-5.3) mg/dL 02/20/19 02/20/19 02/20/19 Range/Units 04:00 04:07 05:08 WBC (3.8-10.6) k/uL RBC (4.30-5.90) m/uL Hgb (13.0-17.5) gm/dL Hct (39.0-53.0) % Neutrophils # (1.3-7.7) k/uL Neutrophils # (Manual) (1.3-7.7) k/uL Lymphocytes # (1.0-4.8) k/uL Lymphocytes # (Manual) (1.0-4.8) k/uL Monocytes # (0-1.0) k/uL APTT 105.6 H* (22.0-30.0) sec ABG pH (7.35-7.45) ABG pCO2 (35-45) mmHg ABG pO2 (83-108) mmHg ABG HCO3 (21-25) mmol/L ABG Total CO2 (19-24) mmol/L ABG O2 Saturation (94-97) % Potassium (3.5-5.1) mmol/L BUN (9-20) mg/dL Creatinine (0.66-1.25) mg/dL Glucose (74-99) mg/dL POC Glucose (mg/dL) 264 H 184 H (75-99) mg/dL Plasma Lactic Acid Ko (0.7-2.0) mmol/L Calcium (8.4-10.2) mg/dL Ionized Calcium Clare (4.5-5.3) mg/dL 02/20/19 02/20/19 02/20/19 Range/Units 06:04 06:33 06:47 WBC (3.8-10.6) k/uL RBC (4.30-5.90) m/uL Hgb (13.0-17.5) gm/dL Hct (39.0-53.0) % Neutrophils # (1.3-7.7) k/uL Neutrophils # (Manual) (1.3-7.7) k/uL Lymphocytes # (1.0-4.8) k/uL Lymphocytes # (Manual) (1.0-4.8) k/uL Monocytes # (0-1.0) k/uL APTT (22.0-30.0) sec ABG pH (7.35-7.45) ABG pCO2 (35-45) mmHg ABG pO2 (83-108) mmHg ABG HCO3 (21-25) mmol/L ABG Total CO2 (19-24) mmol/L ABG O2 Saturation (94-97) % Potassium (3.5-5.1) mmol/L BUN (9-20) mg/dL Creatinine (0.66-1.25) mg/dL Glucose (74-99) mg/dL POC Glucose (mg/dL) 211 H 147 H (75-99) mg/dL Plasma Lactic Acid Ko (0.7-2.0) mmol/L Calcium (8.4-10.2) mg/dL Ionized Calcium Clare 3.6 L (4.5-5.3) mg/dL 02/20/19 02/20/19 02/20/19 Range/Units 07:14 08:01 09:21 WBC (3.8-10.6) k/uL RBC (4.30-5.90) m/uL Hgb (13.0-17.5) gm/dL Hct (39.0-53.0) % Neutrophils # (1.3-7.7) k/uL Neutrophils # (Manual) (1.3-7.7) k/uL Lymphocytes # (1.0-4.8) k/uL Lymphocytes # (Manual) (1.0-4.8) k/uL Monocytes # (0-1.0) k/uL APTT (22.0-30.0) sec ABG pH 7.33 L (7.35-7.45) ABG pCO2 50 H (35-45) mmHg ABG pO2 52 L* (83-108) mmHg ABG HCO3 27 H (21-25) mmol/L ABG Total CO2 28 H (19-24) mmol/L ABG O2 Saturation 87.3 L (94-97) % Potassium (3.5-5.1) mmol/L BUN (9-20) mg/dL Creatinine (0.66-1.25) mg/dL Glucose (74-99) mg/dL POC Glucose (mg/dL) 139 H 104 H (75-99) mg/dL Plasma Lactic Acid Ko (0.7-2.0) mmol/L Calcium (8.4-10.2) mg/dL Ionized Calcium Clare (4.5-5.3) mg/dL 02/20/19 02/20/19 Range/Units 09:57 12:01 WBC (3.8-10.6) k/uL RBC (4.30-5.90) m/uL Hgb (13.0-17.5) gm/dL Hct (39.0-53.0) % Neutrophils # (1.3-7.7) k/uL Neutrophils # (Manual) (1.3-7.7) k/uL Lymphocytes # (1.0-4.8) k/uL Lymphocytes # (Manual) (1.0-4.8) k/uL Monocytes # (0-1.0) k/uL APTT (22.0-30.0) sec ABG pH (7.35-7.45) ABG pCO2 (35-45) mmHg ABG pO2 (83-108) mmHg ABG HCO3 (21-25) mmol/L ABG Total CO2 (19-24) mmol/L ABG O2 Saturation (94-97) % Potassium (3.5-5.1) mmol/L BUN (9-20) mg/dL Creatinine (0.66-1.25) mg/dL Glucose (74-99) mg/dL POC Glucose (mg/dL) 111 H 107 H (75-99) mg/dL Plasma Lactic Acid Ko (0.7-2.0) mmol/L Calcium (8.4-10.2) mg/dL Ionized Calcium Clare (4.5-5.3) mg/dL Microbiology - Last 24 Hours (Table) 02/19/19 10:10 Gram Stain - Preliminary Sputum Sputum Culture - Preliminary 02/18/19 00:30 Blood Culture - Preliminary Blood No Growth after 48 hours Diabetes panel 02/20/19 Range/Units 04:00 Sodium 138 (137-145) mmol/L Potassium 3.1 L (3.5-5.1) mmol/L Chloride 103 (98-107) mmol/L Carbon Dioxide 24 (22-30) mmol/L BUN 35 H (9-20) mg/dL Creatinine 2.44 H (0.66-1.25) mg/dL Glucose 196 H (74-99) mg/dL Calcium 6.1 L* (8.4-10.2) mg/dL Calcium panel 02/20/19 02/20/19 Range/Units 04:00 06:33 Calcium 6.1 L* (8.4-10.2) mg/dL Ionized Calcium Clare 3.6 L (4.5-5.3) mg/dL Pituitary panel 02/20/19 Range/Units 04:00 Sodium 138 (137-145) mmol/L Potassium 3.1 L (3.5-5.1) mmol/L Chloride 103 (98-107) mmol/L Carbon Dioxide 24 (22-30) mmol/L BUN 35 H (9-20) mg/dL Creatinine 2.44 H (0.66-1.25) mg/dL Glucose 196 H (74-99) mg/dL Calcium 6.1 L* (8.4-10.2) mg/dL Adrenal panel 02/20/19 Range/Units 04:00 Sodium 138 (137-145) mmol/L Potassium 3.1 L (3.5-5.1) mmol/L Chloride 103 (98-107) mmol/L Carbon Dioxide 24 (22-30) mmol/L BUN 35 H (9-20) mg/dL Creatinine 2.44 H (0.66-1.25) mg/dL Glucose 196 H (74-99) mg/dL Calcium 6.1 L* (8.4-10.2) mg/dL
[2019-02-20 15:01] LABS: Glucose,Whole Blood 84 mg/dL (75-99)
--- NOTE | 2019-02-20 15:11 | P.PN ---
Subjective Patient is admitted for septic shock secondary to pneumonia. Patient is also being treated for atrial fibrillation. Patient overall causing. Condition has worsened patient went into respiratory failure requiring intubation as per the wishes of the patient patient is presently on assist-control ventilation with FiO2 of 100% because of severe aci dosis patient lactic acid was very high. Patient respiratory rate was set up very high about 30. Patient is presently on Nimbex drip along with vasopressin and norepinephrine, amiodarone drips. Patient is having good urine output his creatinine is bit better now has gotten worse yesterday. Patient blood sugars are very high because of which patient is on insulin drip. Discussed with the family members the want him to be DO NOT RESUSCITATE but continue with ventilatory support for now had a lengthy discussion the family. 02/20/2019 Patient is intubated patient is on 100% FiO2 no significant improvement since the yesterday, his acidosis improved patient pH is 7.33 but remains to retain C O2 in spite of set up respiratory: 36. Patient is also on high PEEP. Patient is on 2 pressors for blood pressure support almost maximized on both the form serum creatinine continued to worse urine output marginal continues to be on propofol and Nimbex oral there is no significant improvement Had a lengthy discussion with the family. Patient is presently DO NOT RESUSCITATE. Answered family's questions and addressed their concerns. After discussing with the director of physiotherapy services family decided to monitor him 1 more night if he doesn't improve the decision is to make him comfort care and hospice and terminally wean the patient. Review of systems: Unable to obtain All inpatient medications were reviewed and appropriate changes in these medications as dictated in the interval history and assessment and plan. Objective - Vital Signs Vital signs: Vital Signs Temp 98.9 F 02/20/19 08:00 Pulse 152 H 02/20/19 14:01 Resp 36 H 02/20/19 14:01 BP 96/59 02/20/19 14:01 Pulse Ox 86 L 02/20/19 14:01 Intake & Output 02/19/19 02/20/19 02/20/19 18:59 06:59 18:59 Intake Total 2846.546 3153.620 1651.59 Output Total 960 363 168 Balance 1090.116 6333.620 1483.59 Weight 87.9 kg 93.8 kg Intake: IV 1622 2222 1404 Cefepime 2 gm In Sodium 100 100 Chloride 0.9% 100 ml @ 200 mls/hr IVPB Q12H [facility] Rx#:[id number] Magnesium Sulfate-D5w Pmx 100 1 gm In Dextrose/Water 1 100ml.bag @ 100 mls/hr IVPB Q1H [facility] Rx#: [id number] Normal Saline 600 600 450 Normal Saline Pressure 72 72 54 Bag Sodium Bicarb Amp 500 1200 900 Vancomycin 1,500 mg In 250 250 Sodium Chloride 0.9% 250 ml @ 125 mls/hr IVPB Q12H [facility] Rx#:[id number] Intake, IV Titration 1224.546 731.620 117.59 Amount Amiodarone 300 mg In 250 Dextrose 5% in Water 250 ml @ 0.5 MG/MIN 25 mls/hr IV .Q10H [facility] Rx#: [id number] Cisatracurium 200 mg In 153.710 Sodium Chloride 0.9% 180 ml @ 1 MCG/KG/MIN 4.854 mls/hr IV .Q24H [facility] Rx#: [id number] Dextrose 5% in Water 1, 100 000 ml @ 100 mls/hr IV . [id number] [facility] with Sodium Bicarb (1 Meq/ml) 150 ml Rx#:[id number] Heparin Sod,Pork in 0.45% 106.418 81.063 0 NaCl 25,000 unit In 0.45 % NaCl 1 250ml.bag @ 12 UNITS/KG/HR 9.708 mls/hr IV .Q24H [facility] Rx#: [id number] Insulin Regular 100 unit 169.007 416.155 17.59 In Sodium Chloride 0.9% 100 ml @ Per Protocol IV .Q0M [facility] Rx#:[id number] Norepinephrine 32 mg In 162.172 134.402 Sodium Chloride 0.9% 218 ml @ 0.05 MCG/KG/MIN 1. 701 mls/hr IV .Q24H [facility] Rx#:[id number] Propofol 1,000 mg In 283.239 100 100 Empty Bag 1 bag @ Titrate IV .Q0M [facility] Rx#: [id number] Tube Feeding 110 130 Other 90 Output: Urine 960 363 168 Other: Voiding Method Indwelling Catheter Indwelling Catheter Indwelling Catheter ABP, PAP, CO, CI - Last Documented Arterial Blood Pressure 98/53 - Exam PHYSICAL EXAMINATION: GENERAL: Patient is intubated sedated HEENT: Pupils are round and equally reacting to light. EOMI. No scleral icterus. No conjunctival pallor. Normocephalic, atraumatic. No pharyngeal erythema. No thyromegaly. CARDIOVASCULAR: S1 and S2 present. No murmurs, rubs, or gallops. Irregularly irregular rhythm tachycardic PULMONARY: Diffuse rhonchi ABDOMEN: Soft, nontender, nondistended, normoactive bowel sounds. No palpable organomegaly. NG tube in place MUSCULOSKELETAL: No joint swelling or deformity. EXTREMITIES: No cyanosis, clubbing, or pedal edema. NEUROLOGICAL: Patient is intubated and sedated SKIN: No rashes. - Labs CBC & Chem 7: 02/20/19 04:00 02/20/19 04:00 Labs: Abnormal Lab Results - Last 24 Hours (Table) 02/19/19 02/19/19 02/19/19 Range/Units 15:20 16:15 17:01 WBC (3.8-10.6) k/uL RBC (4.30-5.90) m/uL Hgb (13.0-17.5) gm/dL Hct (39.0-53.0) % Neutrophils # (1.3-7.7) k/uL Neutrophils # (Manual) (1.3-7.7) k/uL Lymphocytes # (1.0-4.8) k/uL Lymphocytes # (Manual) (1.0-4.8) k/uL Monocytes # (0-1.0) k/uL APTT (22.0-30.0) sec ABG pH (7.35-7.45) ABG pCO2 (35-45) mmHg ABG pO2 (83-108) mmHg ABG HCO3 (21-25) mmol/L ABG Total CO2 (19-24) mmol/L ABG O2 Saturation (94-97) % Potassium (3.5-5.1) mmol/L BUN (9-20) mg/dL Creatinine (0.66-1.25) mg/dL Glucose (74-99) mg/dL POC Glucose (mg/dL) 430 H 439 H (75-99) mg/dL Plasma Lactic Acid Ko 8.2 H* (0.7-2.0) mmol/L Calcium (8.4-10.2) mg/dL Ionized Calcium Clare (4.5-5.3) mg/dL 02/19/19 02/19/19 02/19/19 Range/Units 18:19 19:37 21:09 WBC (3.8-10.6) k/uL RBC (4.30-5.90) m/uL Hgb (13.0-17.5) gm/dL Hct (39.0-53.0) % Neutrophils # (1.3-7.7) k/uL Neutrophils # (Manual) (1.3-7.7) k/uL Lymphocytes # (1.0-4.8) k/uL Lymphocytes # (Manual) (1.0-4.8) k/uL Monocytes # (0-1.0) k/uL APTT (22.0-30.0) sec ABG pH (7.35-7.45) ABG pCO2 (35-45) mmHg ABG pO2 (83-108) mmHg ABG HCO3 (21-25) mmol/L ABG Total CO2 (19-24) mmol/L ABG O2 Saturation (94-97) % Potassium (3.5-5.1) mmol/L BUN (9-20) mg/dL Creatinine (0.66-1.25) mg/dL Glucose (74-99) mg/dL POC Glucose (mg/dL) 420 H 422 H 428 H (75-99) mg/dL Plasma Lactic Acid Ko (0.7-2.0) mmol/L Calcium (8.4-10.2) mg/dL Ionized Calcium Clare (4.5-5.3) mg/dL 02/19/19 02/19/19 02/19/19 Range/Units 21:30 22:32 23:06 WBC (3.8-10.6) k/uL RBC (4.30-5.90) m/uL Hgb (13.0-17.5) gm/dL Hct (39.0-53.0) % Neutrophils # (1.3-7.7) k/uL Neutrophils # (Manual) (1.3-7.7) k/uL Lymphocytes # (1.0-4.8) k/uL Lymphocytes # (Manual) (1.0-4.8) k/uL Monocytes # (0-1.0) k/uL APTT 83.6 H (22.0-30.0) sec ABG pH (7.35-7.45) ABG pCO2 (35-45) mmHg ABG pO2 (83-108) mmHg ABG HCO3 (21-25) mmol/L ABG Total CO2 (19-24) mmol/L ABG O2 Saturation (94-97) % Potassium (3.5-5.1) mmol/L BUN (9-20) mg/dL Creatinine (0.66-1.25) mg/dL Glucose (74-99) mg/dL POC Glucose (mg/dL) 372 H 359 H (75-99) mg/dL Plasma Lactic Acid Ko (0.7-2.0) mmol/L Calcium (8.4-10.2) mg/dL Ionized Calcium Clare (4.5-5.3) mg/dL 02/20/19 02/20/19 02/20/19 Range/Units 00:58 01:59 02:56 WBC (3.8-10.6) k/uL RBC (4.30-5.90) m/uL Hgb (13.0-17.5) gm/dL Hct (39.0-53.0) % Neutrophils # (1.3-7.7) k/uL Neutrophils # (Manual) (1.3-7.7) k/uL Lymphocytes # (1.0-4.8) k/uL Lymphocytes # (Manual) (1.0-4.8) k/uL Monocytes # (0-1.0) k/uL APTT (22.0-30.0) sec ABG pH (7.35-7.45) ABG pCO2 (35-45) mmHg ABG pO2 (83-108) mmHg ABG HCO3 (21-25) mmol/L ABG Total CO2 (19-24) mmol/L ABG O2 Saturation (94-97) % Potassium (3.5-5.1) mmol/L BUN (9-20) mg/dL Creatinine (0.66-1.25) mg/dL Glucose (74-99) mg/dL POC Glucose (mg/dL) 331 H 314 H 275 H (75-99) mg/dL Plasma Lactic Acid Ko (0.7-2.0) mmol/L Calcium (8.4-10.2) mg/dL Ionized Calcium Clare (4.5-5.3) mg/dL 02/20/19 02/20/19 02/20/19 Range/Units 04:00 04:00 04:00 WBC 39.7 H (3.8-10.6) k/uL RBC 3.94 L (4.30-5.90) m/uL Hgb 12.4 L (13.0-17.5) gm/dL Hct 36.4 L (39.0-53.0) % Neutrophils # 14.8 H (1.3-7.7) k/uL Neutrophils # (Manual) 38.50 H (1.3-7.7) k/uL Lymphocytes # 0.8 L (1.0-4.8) k/uL Lymphocytes # (Manual) 0.79 L (1.0-4.8) k/uL Monocytes # 21.9 H (0-1.0) k/uL APTT 105.6 H* (22.0-30.0) sec ABG pH (7.35-7.45) ABG pCO2 (35-45) mmHg ABG pO2 (83-108) mmHg ABG HCO3 (21-25) mmol/L ABG Total CO2 (19-24) mmol/L ABG O2 Saturation (94-97) % Potassium 3.1 L (3.5-5.1) mmol/L BUN 35 H (9-20) mg/dL Creatinine 2.44 H (0.66-1.25) mg/dL Glucose 196 H (74-99) mg/dL POC Glucose (mg/dL) (75-99) mg/dL Plasma Lactic Acid Ko (0.7-2.0) mmol/L Calcium 6.1 L* (8.4-10.2) mg/dL Ionized Calcium Clare (4.5-5.3) mg/dL 02/20/19 02/20/19 02/20/19 Range/Units 04:07 05:08 06:04 WBC (3.8-10.6) k/uL RBC (4.30-5.90) m/uL Hgb (13.0-17.5) gm/dL Hct (39.0-53.0) % Neutrophils # (1.3-7.7) k/uL Neutrophils # (Manual) (1.3-7.7) k/uL Lymphocytes # (1.0-4.8) k/uL Lymphocytes # (Manual) (1.0-4.8) k/uL Monocytes # (0-1.0) k/uL APTT (22.0-30.0) sec ABG pH (7.35-7.45) ABG pCO2 (35-45) mmHg ABG pO2 (83-108) mmHg ABG HCO3 (21-25) mmol/L ABG Total CO2 (19-24) mmol/L ABG O2 Saturation (94-97) % Potassium (3.5-5.1) mmol/L BUN (9-20) mg/dL Creatinine (0.66-1.25) mg/dL Glucose (74-99) mg/dL POC Glucose (mg/dL) 264 H 184 H 211 H (75-99) mg/dL Plasma Lactic Acid Ko (0.7-2.0) mmol/L Calcium (8.4-10.2) mg/dL Ionized Calcium Clare (4.5-5.3) mg/dL 02/20/19 02/20/19 02/20/19 Range/Units 06:33 06:47 07:14 WBC (3.8-10.6) k/uL RBC (4.30-5.90) m/uL Hgb (13.0-17.5) gm/dL Hct (39.0-53.0) % Neutrophils # (1.3-7.7) k/uL Neutrophils # (Manual) (1.3-7.7) k/uL Lymphocytes # (1.0-4.8) k/uL Lymphocytes # (Manual) (1.0-4.8) k/uL Monocytes # (0-1.0) k/uL APTT (22.0-30.0) sec ABG pH 7.33 L (7.35-7.45) ABG pCO2 50 H (35-45) mmHg ABG pO2 52 L* (83-108) mmHg ABG HCO3 27 H (21-25) mmol/L ABG Total CO2 28 H (19-24) mmol/L ABG O2 Saturation 87.3 L (94-97) % Potassium (3.5-5.1) mmol/L BUN (9-20) mg/dL Creatinine (0.66-1.25) mg/dL Glucose (74-99) mg/dL POC Glucose (mg/dL) 147 H (75-99) mg/dL Plasma Lactic Acid Ko (0.7-2.0) mmol/L Calcium (8.4-10.2) mg/dL Ionized Calcium Clare 3.6 L (4.5-5.3) mg/dL 02/20/19 02/20/19 02/20/19 Range/Units 08:01 09:21 09:57 WBC (3.8-10.6) k/uL RBC (4.30-5.90) m/uL Hgb (13.0-17.5) gm/dL Hct (39.0-53.0) % Neutrophils # (1.3-7.7) k/uL Neutrophils # (Manual) (1.3-7.7) k/uL Lymphocytes # (1.0-4.8) k/uL Lymphocytes # (Manual) (1.0-4.8) k/uL Monocytes # (0-1.0) k/uL APTT (22.0-30.0) sec ABG pH (7.35-7.45) ABG pCO2 (35-45) mmHg ABG pO2 (83-108) mmHg ABG HCO3 (21-25) mmol/L ABG Total CO2 (19-24) mmol/L ABG O2 Saturation (94-97) % Potassium (3.5-5.1) mmol/L BUN (9-20) mg/dL Creatinine (0.66-1.25) mg/dL Glucose (74-99) mg/dL POC Glucose (mg/dL) 139 H 104 H 111 H (75-99) mg/dL Plasma Lactic Acid Ko (0.7-2.0) mmol/L Calcium (8.4-10.2) mg/dL Ionized Calcium Clare (4.5-5.3) mg/dL 02/20/19 Range/Units 12:01 WBC (3.8-10.6) k/uL RBC (4.30-5.90) m/uL Hgb (13.0-17.5) gm/dL Hct (39.0-53.0) % Neutrophils # (1.3-7.7) k/uL Neutrophils # (Manual) (1.3-7.7) k/uL Lymphocytes # (1.0-4.8) k/uL Lymphocytes # (Manual) (1.0-4.8) k/uL Monocytes # (0-1.0) k/uL APTT (22.0-30.0) sec ABG pH (7.35-7.45) ABG pCO2 (35-45) mmHg ABG pO2 (83-108) mmHg ABG HCO3 (21-25) mmol/L ABG Total CO2 (19-24) mmol/L ABG O2 Saturation (94-97) % Potassium (3.5-5.1) mmol/L BUN (9-20) mg/dL Creatinine (0.66-1.25) mg/dL Glucose (74-99) mg/dL POC Glucose (mg/dL) 107 H (75-99) mg/dL Plasma Lactic Acid Ko (0.7-2.0) mmol/L Calcium (8.4-10.2) mg/dL Ionized Calcium Clare (4.5-5.3) mg/dL Microbiology - Last 24 Hours (Table) 02/19/19 10:10 Gram Stain - Preliminary Sputum Sputum Culture - Preliminary 02/18/19 00:30 Blood Culture - Preliminary Blood No Growth after 48 hours Assessment and Plan Plan: -Acute hypoxic and hypercapnic respiratory failure secondary to septic shock patient appears to have some ARDS as well. Patient received Lasix because of ARDS patient ventilator settings as mentioned above on his current control ventilation. With very high FiO2 patient is on propofol drip along with Nimbex -Septic shock secondary to extensive bilateral pneumonia patient was recently hospitalized because of which patient is being treated for the broad-spectrum antibiotics. His sputum was positive for MRSA in the past patient probably has MRSA pneumonia Patient is on pressor support patient is on both vasopressin and norepinephrine. White blood cell count was 43.2 improved to 39,700 -Acute hypoxic respiratory failure secondary to sepsis and extensive bilateral pneumonia management as mentioned above -Acute renal failure probably acute tubular necrosis and hypotension from sepsis patient will continued on IV fluids -Mildly elevated troponin secondary to A. fib and the sepsis -Atrial fibrillation with rapid ventricular rate patient is on IV heparin and amiodarone drip -Recent adrenal hemorrhage and retinal insufficiency for which patient on for the Hydrocortisone Which Will Be Continued -History of lymphoma which is in remission at this time is a concern about relapse of this lymphoma but didn't get a chance to follow-up with oncology yet -Depression Continue with support for today for doesn't improve family is planning on terminal wean and comfort care at that time it appears patient functionality has gone down quite a bit recently in last few months. CODE STATUS: DO NOT RESUSCITATE
[2019-02-20 16:08] LABS: Glucose,Whole Blood 102 mg/dL (75-99)
[2019-02-20] MEDS: HEPARIN SOD,PORK IN 0.45% NACL 25,000 UNIT in 0.45% NACL 1 250ML.BAG IV SCH (16:29)
[2019-02-20] MEDS: NOREPINEPHRINE 32 MG in SODIUM CHLORIDE 0.9% 218 ML IV SCH (16:31)
[2019-02-20 16:44] LABS: Glucose,Whole Blood 99 mg/dL (75-99)
[2019-02-20 18:59] LABS: Glucose,Whole Blood 112 mg/dL (75-99)
[2019-02-20] MEDS ORDERED: VANCOMYCIN TROUGH DUE 1 EACH MISC MISCELLANE ONE (19:00)
[2019-02-20 21:18] LABS: Glucose,Whole Blood 127 mg/dL (75-99)
[2019-02-20] MEDS ORDERED: VANCOMYCIN IV PER PHARMACY 1 EACH MISC MISCELLANE PRN (22:19)
[2019-02-21] MEDS ORDERED: AMIODARONE 300 MG in DEXTROSE 5% IN WATER 250 ML IV SCH ×2 (03:00)
[2019-02-21] MEDS: FUROSEMIDE 10 MG/ML 4 ML VIAL IV SCH ×2 (03:07→10:30)
[2019-02-21] MEDS: IPRATROPIUM-ALBUTEROL 3 ML NEB INHALATION SCH ×3 (03:09→10:44)
[2019-02-21] MEDS: DEXTROSE 5% IN WATER 1,000 ML with SODIUM BICARB (1 MEQ/ML) 150 ML IV SCH (03:18)
[2019-02-21] MEDS: SODIUM CHLORIDE 0.9% 1,000 ML IV SCH (03:25)
[2019-02-21 04:30] LABS: Glucose,Whole Blood 167 mg/dL (75-99)
[2019-02-21 04:51] LABS: HCT 34.1 % (39.0-53.0); HGB 11.5 gm/dL (13.0-17.5); Hypochromasia Slight; MCH 31.9 pg (25.0-35.0); MCHC 33.8 g/dL (31.0-37.0); MCV 94.4 fL (80.0-100.0); Mean Platelet Volume 8.7; Platelet Count 130 k/uL (150-450); Poikilocytosis Slight; RBC 3.61 m/uL (4.30-5.90); WBC 30.2 k/uL (3.8-10.6)
[2019-02-21 05:12] LABS: Band Neutrophils % 5 %; Monocytes # (M) 2.11 k/uL (0-1.0); Neutrophils % (M) 88 %; Nucleated Red Blood Cells 0 /100 WBC (0-0); Total Cells Counted 200; Toxic Vacuolation Present
[2019-02-21 05:45] LABS: Glucose,Whole Blood 161 mg/dL (75-99)
[2019-02-21] MEDS ORDERED: INSULIN ASPART (NovoLOG) 100 UNIT/ML VIAL SQ SCH ×2 (05:45→06:00)
[2019-02-21 05:49] LABS: Calcium 5.5 mg/dL (8.4-10.2)
[2019-02-21] MEDS: CISATRACURIUM 200 MG in SODIUM CHLORIDE 0.9% 180 ML IV SCH (06:09)
[2019-02-21] MEDS ORDERED: CALCIUM GLUCONATE 1 GM in SODIUM CHLORIDE 0.9% 100 ML IVPB ONE (06:30)
[2019-02-21 07:15] LABS: ABG Base Excess -5.1 mmol/L; ABG HCO3 23 mmol/L (21-25); ABG Oxygen Saturation 68.3 % (94-97); ABG PCO2 55 mmHg (35-45); ABG PH 7.23 (7.35-7.45); ABG TCO2 24 mmol/L (19-24)
[2019-02-21 07:16] LABS: ABG PO2 41 mmHg (83-108); Allen Test Performed? no
[2019-02-21] MEDS ORDERED: SODIUM BICARB 8.4% 50 ML SYR (1 MEQ/ML) IV STA (07:24)
--- NOTE | 2019-02-21 07:53 | XR ---
EXAMINATION TYPE: XR chest 1V portable DATE OF EXAM: 02/21/2019 COMPARISON: 02/20/2019 HISTORY: Shortness of breath TECHNIQUE: Single frontal view of the chest is obtained. FINDINGS: Findings are similar to prior exam. Endotracheal tube is overlying the tracheal air column , NG tube is coursing towards the stomach, tip is not included on the exam however. Central venous ca theter is overlying appropriate position. Pleural parenchymal changes are similar to prior exam, post op changes and overlying cardiac leads again noted. No evident pneumothorax. Heart size is unchanged. IMPRESSION: 1. Diffuse pleural-parenchymal changes could been the basis of pulmonary edema, ARDS or diffuse pneum onia and are stable.
[2019-02-21] MEDS: AMIODARONE 200 MG TAB PO SCH (08:18)
[2019-02-21] MEDS: PANTOPRAZOLE 40 MG/10 ML VIAL IV SCH (08:18)
[2019-02-21] MEDS: ASPIRIN 81 MG PO SCH (08:19)
[2019-02-21] MEDS: CHLORHEXIDINE GLUCONATE 15 ML CUP MUCOUS MEM SCH (08:19)
[2019-02-21] MEDS: CALCIUM CARBONATE 500 MG CHEWABLE PO SCH (08:19)
[2019-02-21] MEDS: FLUDROCORTISONE 0.1 MG TAB PO SCH (08:19)
[2019-02-21] MEDS: HYDROCORTISONE SUCCINATE 100 MG/2 ML VIAL IV SCH (08:20)
[2019-02-21] MEDS: ATORVASTATIN 40 MG TAB PO SCH (08:20)
[2019-02-21] MEDS: PREGABALIN 75 MG CAP PO SCH (08:38)
[2019-02-21] MEDS: POTASSIUM CHLORIDE ER 10 MEQ TAB.ER.PRT PO SCH (08:38)
[2019-02-21 09:48] VITALS: TEMP 99
[2019-02-21 11:05] VITALS: PULSE 0; RESP 0
--- NOTE | 2019-02-21 12:07 | P.PN ---
Subjective Progress Note Date: 02/21/19 Principal diagnosis: Patient is admitted for septic shock secondary to pneumonia. Patient is also being treated for atrial fibrillation. Patient overall causing. Condition has worsened patient went into respiratory failure requiring intubation as per the wishes of the patient patient is presently on assist-control ventilation with FiO2 of 100% because of severe acidosis patient lactic acid was very high. Patient respiratory rate was set up very high about 30. Patient is presently on Nimbex drip along with vasopressin and norepinephrine, amiodarone drips. Patient is having good urine output his creatinine is bit better now has gotten worse yesterday. Patient blood sugars are very high because of which patient is on insulin drip. Discussed with the family members the want him to be DO NOT RESUSCITATE but continue with ventilatory support for now had a lengthy discussion the family. 02/20/2019 Patient is intubated patient is on 100% FiO2 no significant improvement since the yesterday, his acidosis improved patient pH is 7.33 but remains to retain CO2 in spite of set up respiratory: 36. Patient is also on high PEEP. Patient is on 2 pressors for blood pressure support almost maximized on both the form serum creatinine continued to worse urine output marginal continues to be on propofol and Nimbex oral there is no significant improvement Had a lengthy discussion with the family. Patient is presently DO NOT RESUSCITATE. Answered family's questions and addressed their concerns. After discussing with the milk house worker family decided to monitor him 1 more night if he doesn't improve the decision is to make him comfort care and hospice and terminally wean the patient. Review of systems: Unable to obtain All inpatient medications were reviewed and appropriate changes in these medications as dictated in the interval history and assessment and plan. 02/21/2019 Patient remains in the ICU and continues to be on multiple drips including pressors with blood pressures 40s and 50s systolic. Family is at the bedside and discussed at length about comfort measures. Family is agreeable with this at this time and wished to have the pressors removed. Will continue to monitor closely. Extremely poor prognosis. Objective - Vital Signs Vital signs: Vital Signs Temp 99 F 02/21/19 08:00 Pulse 0 L 02/21/19 10:45 Resp 0 L 02/21/19 10:45 BP 96/59 02/20/19 19:00 Pulse Ox 36 L 02/21/19 09:30 Intake & Output 02/20/19 02/21/19 02/21/19 18:59 06:59 18:59 Intake Total 2755.500 2518.999 634 Output Total 168 0 0 Balance 2587.500 2518.999 634 Weight 94 kg Intake: IV 1872 1872 624 Normal Saline 600 600 200 Normal Saline Pressure 72 72 24 Bag Sodium Bicarb Amp 1200 1200 400 Intake, IV Titration 693.500 436.999 Amount Amiodarone 300 mg In 248.75 Dextrose 5% in Water 250 ml @ 0.5 MG/MIN 25 mls/hr IV .Q10H [facility] Rx#: [id number] Cisatracurium 200 mg In 179.922 Sodium Chloride 0.9% 180 ml @ 1 MCG/KG/MIN 4.854 mls/hr IV .Q24H [facility] Rx#: [id number] Heparin Sod,Pork in 0.45% 15.659 7.077 NaCl 25,000 unit In 0.45 % NaCl 1 250ml.bag @ 12 UNITS/KG/HR 9.708 mls/hr IV .Q24H [facility] Rx#: [id number] Insulin Regular 100 unit 17.59 In Sodium Chloride 0.9% 100 ml @ Per Protocol IV .Q0M [facility] Rx#:[id number] Norepinephrine 32 mg In 211.501 250.000 Sodium Chloride 0.9% 218 ml @ 0.05 MCG/KG/MIN 1. 701 mls/hr IV .Q24H [facility] Rx#:[id number] Propofol 1,000 mg In 200 Empty Bag 1 bag @ Titrate IV .Q0M [facility] Rx#: [id number] Tube Feeding 160 120 10 Other 30 90 Output: Urine 168 0 0 Other: Voiding Method Indwelling Catheter Indwelling Catheter Indwelling Catheter ABP, PAP, CO, CI - Last Documented Arterial Blood Pressure 26/21 - Exam GENERAL: Patient is intubated sedated HEENT: Pupils are round and equally reacting to light. EOMI. No scleral icterus. No conjunctival pallor. Normocephalic, atraumatic. No pharyngeal erythema. No thyromegaly. CARDIOVASCULAR: S1 and S2 present. No murmurs, rubs, or gallops. Irregularly irregular rhythm tachycardic PULMONARY: Diffuse rhonchi, patient is ventilated ABDOMEN: Soft, nontender, nondistended, normoactive bowel sounds. No palpable organomegaly. NG tube in place MUSCULOSKELETAL: No joint swelling or deformity. EXTREMITIES: No cyanosis, clubbing, or pedal edema. NEUROLOGICAL: Patient is intubated and sedated SKIN: No rashes. - Labs CBC & Chem 7: 02/21/19 04:25 02/21/19 04:25 Labs: Abnormal Lab Results - Last 24 Hours (Table) 02/20/19 02/20/19 02/20/19 Range/Units 06:33 12:01 16:07 WBC (3.8-10.6) k/uL RBC (4.30-5.90) m/uL Hgb (13.0-17.5) gm/dL Hct (39.0-53.0) % Plt Count (150-450) k/uL Neutrophils # (Manual) (1.3-7.7) k/uL Lymphocytes # (Manual) (1.0-4.8) k/uL Monocytes # (Manual) (0-1.0) k/uL APTT (22.0-30.0) sec ABG pH (7.35-7.45) ABG pCO2 (35-45) mmHg ABG pO2 (83-108) mmHg ABG O2 Saturation (94-97) % Sodium (137-145) mmol/L BUN (9-20) mg/dL Creatinine (0.66-1.25) mg/dL Glucose (74-99) mg/dL POC Glucose (mg/dL) 107 H 102 H (75-99) mg/dL Calcium (8.4-10.2) mg/dL Vitamin D 25-Hydroxy 28.4 L (30.0-100.0) ng/mL Vancomycin Trough ug/mL 02/20/19 02/20/19 02/20/19 Range/Units 16:40 18:58 21:15 WBC (3.8-10.6) k/uL RBC (4.30-5.90) m/uL Hgb (13.0-17.5) gm/dL Hct (39.0-53.0) % Plt Count (150-450) k/uL Neutrophils # (Manual) (1.3-7.7) k/uL Lymphocytes # (Manual) (1.0-4.8) k/uL Monocytes # (Manual) (0-1.0) k/uL APTT 77.9 H (22.0-30.0) sec ABG pH (7.35-7.45) ABG pCO2 (35-45) mmHg ABG pO2 (83-108) mmHg ABG O2 Saturation (94-97) % Sodium (137-145) mmol/L BUN (9-20) mg/dL Creatinine (0.66-1.25) mg/dL Glucose (74-99) mg/dL POC Glucose (mg/dL) 112 H (75-99) mg/dL Calcium (8.4-10.2) mg/dL Vitamin D 25-Hydroxy (30.0-100.0) ng/mL Vancomycin Trough 35.0 H* ug/mL 02/20/19 02/21/19 02/21/19 Range/Units 21:17 04:25 04:25 WBC 30.2 H (3.8-10.6) k/uL RBC 3.61 L (4.30-5.90) m/uL Hgb 11.5 L (13.0-17.5) gm/dL Hct 34.1 L (39.0-53.0) % Plt Count 130 L (150-450) k/uL Neutrophils # (Manual) 28.00 H (1.3-7.7) k/uL Lymphocytes # (Manual) 0.30 L (1.0-4.8) k/uL Monocytes # (Manual) 2.11 H (0-1.0) k/uL APTT (22.0-30.0) sec ABG pH (7.35-7.45) ABG pCO2 (35-45) mmHg ABG pO2 (83-108) mmHg ABG O2 Saturation (94-97) % Sodium 134 L (137-145) mmol/L BUN 49 H (9-20) mg/dL Creatinine 3.57 H (0.66-1.25) mg/dL Glucose 156 H (74-99) mg/dL POC Glucose (mg/dL) 127 H (75-99) mg/dL Calcium 5.5 L* (8.4-10.2) mg/dL Vitamin D 25-Hydroxy (30.0-100.0) ng/mL Vancomycin Trough ug/mL 02/21/19 02/21/1920 Range/Units 04:29 05:40 05:44 WBC (3.8-10.6) k/uL RBC (4.30-5.90) m/uL Hgb (13.0-17.5) gm/dL Hct (39.0-53.0) % Plt Count (150-450) k/uL Neutrophils # (Manual) (1.3-7.7) k/uL Lymphocytes # (Manual) (1.0-4.8) k/uL Monocytes # (Manual) (0-1.0) k/uL APTT 61.6 H (22.0-30.0) sec ABG pH (7.35-7.45) ABG pCO2 (35-45) mmHg ABG pO2 (83-108) mmHg ABG O2 Saturation (94-97) % Sodium (137-145) mmol/L BUN (9-20) mg/dL Creatinine (0.66-1.25) mg/dL Glucose (74-99) mg/dL POC Glucose (mg/dL) 167 H 161 H (75-99) mg/dL Calcium (8.4-10.2) mg/dL Vitamin D 25-Hydroxy (30.0-100.0) ng/mL Vancomycin Trough ug/mL 02/21/19 Range/Units 07:13 WBC (3.8-10.6) k/uL RBC (4.30-5.90) m/uL Hgb (13.0-17.5) gm/dL Hct (39.0-53.0) % Plt Count (150-450) k/uL Neutrophils # (Manual) (1.3-7.7) k/uL Lymphocytes # (Manual) (1.0-4.8) k/uL Monocytes # (Manual) (0-1.0) k/uL APTT (22.0-30.0) sec ABG pH 7.23 L (7.35-7.45) ABG pCO2 55 H (35-45) mmHg ABG pO2 41 L* (83-108) mmHg ABG O2 Saturation 68.3 L (94-97) % Sodium (137-145) mmol/L BUN (9-20) mg/dL Creatinine (0.66-1.25) mg/dL Glucose (74-99) mg/dL POC Glucose (mg/dL) (75-99) mg/dL Calcium (8.4-10.2) mg/dL Vitamin D 25-Hydroxy (30.0-100.0) ng/mL Vancomycin Trough ug/mL Microbiology - Last 24 Hours (Table) 02/19/19 10:10 Gram Stain - Final Sputum Sputum Culture - Final 02/18/19 00:30 Blood Culture - Preliminary Blood No Growth after 72 hours Assessment and Plan Assessment: -Acute hypoxic and hypercapnic respiratory failure secondary to septic shock patient appears to have some ARDS as well. Patient received Lasix because of ARDS patient ventilator settings as mentioned above on his current control ventilation. With very high FiO2 patient is on propofol drip along with Nimbex -Septic shock secondary to extensive bilateral pneumonia patient was recently hospitalized because of which patient is being treated for the broad-spectrum antibiotics. His sputum was positive for MRSA in the past patient probably has MRSA pneumonia Patient is on pressor support patient is on both vasopressin and norepinephrine. White blood cell count was 43.2 improved to 39,700 -Acute hypoxic respiratory failure secondary to sepsis and extensive bilateral pneumonia management as mentioned above -Acute renal failure probably acute tubular necrosis and hypotension from sepsis patient will continued on IV fluids -Mildly elevated troponin secondary to A. fib and the sepsis -Atrial fibrillation with rapid ventricular rate patient is on IV heparin and amiodarone drip -Recent adrenal hemorrhage and retinal insufficiency for which patient on for the Hydrocortisone Which Will Be Continued -History of lymphoma which is in remission at this time is a concern about relapse of this lymphoma but didn't get a chance to follow-up with oncology yet -Depression Continue with support for today for doesn't improve family is planning on terminal wean and comfort care at that time it appears patient functionality has gone down quite a bit recently in last few months. Patient's status continued to deteriorate overnight and family is wishing for comfort care and to remove the pressors. Review nursing notes for time of . CODE STATUS: DO NOT RESUSCITATE
--- NOTE | 2019-02-21 12:10 | P.PN ---
Subjective Progress Note Date: 02/21/19 Principal diagnosis: Septic shock. This is a 73-year-old white male, familiar to my service, patient was admitted to the hospital on 01/28/2019, and discharged home on 02/01/2019. Patient was admitted with aspiration pneumonia, hypertension, atrial fibrillation with RVR requiring cardioversion, and at that time he was found to have adrenal hematoma. And felt that the patient may have adrenal insufficiency. All the issues where addressed, patient was in the ICU for a few days, and he turned around nicely. And he was supposedly discharged home on Lasix, aspirin, metformin, metoprolol, atorvastatin, insulin, albuterol with Atrovent updrafts, Lyrica, Singulair, Zovirax, Augmentin, Eliquis, Florinef, and hydrocortisone/Cortef 20 mg by mouth twice a day. Apparently the patient was advised to have follow-up with his primary care physician and follow-up with me. I saw this patient 2 days ago, and he was doing extremely well. His chest x-ray was reassuring and this was last week. Apparently over the weekend, the patient developed multiple confusional symptoms including low-grade fever, nausea, vomiting, weakness, and shortness of breath. Patient was noted to have hypotension in the ER. He had lactic acidosis, and clinically was septic. Central line was placed by the ER physician, placed empirically on antibiotics in the form of cefepime, Levaquin, and vancomycin. Chest x-ray showed bilateral infiltrates. Patient was given Solu-Cortef early this morning, and looking at the notes, patient may have stopped his Cortef and apparently he did not have a follow-up with endocrinology because of his adrenal insufficiency and all felt to be related to his renal hematoma. His condition deteriorated overnight, patient was admitted to the ICU on BiPAP with 100% FiO2, IPAP of 14, EPAP of 6, and his initial ABG showed significant metabolic acidosis and the relative hypoxemia. The patient received bicarb. Received more Solu-Cortef, and kept on antibiotics as well as IV fluids. CVP is about 8 at present. After evaluating the patient, a left radial arterial line was placed for blood pressure monitoring. And the patient was on norepinephrine initially at 0.7 mcg/kg/m. This is now being titrated. Looking back at his last admission, patient had a similar presentation with hypotension, however he responded well to Solu-Cortef and Florinef. I have a feeling that his Florinef and his Cortef will discontinued on outpatient basis somewhere along the line either by his primary care physician or by the manager [place]. Patient was evaluated today on 02/19/2019, patient took a downhill course yesterday, and late in the afternoon I had to intubate the patient because of worsening oxygenation, worsening chest x-ray, and persistent hypotension. Winter ayoub was intubated, placed on mechanical ventilation, and he is now on mechanical ventilation with assist control rate of 36. tidal volume of 450 FiO2 on the percent, and PEEP has been increased gradually from 5-14 this morning. ABG this morning showed a pO2 of 69 pCO2 of 58 pH of 7.16. Continues to have worsening lactic acidosis, his sugar is 502 today, and he'll be placed on insulin drip. In the meantime the patient is on norepinephrine at 0.45 mcg/kg/m, propofol at 50 mcg/kg/m, heparin drip, bicarbonate drip, Nimbex drip, amiodarone drip, vasopressin drip, and intermittent morphine sulfate while on Nimbex. His WBC count jumped today up to 43.2. Reevaluated today on 02/20/2019, patient remains in the ICU, intubated and mechanically ventilated. Family is at bedside, patient is not doing well today. Remains on assist control rate of 36, tidal volume 450 FiO2 100% and PEEP increased to 16. Remains on multiple drips including norepinephrine at 1 mcg/kg/m, bicarb drip, Nimbex, vasopressin, peak airway pressure is about 38, plateau pressure on the ventilator is 31. Obviously the patient is developing worsening picture of ARDS. ABG this morning showed a pO2 of 52 pCO2 of 50 pH of 7.33. Continues to have leukocytosis with WBC count of 39.7 hemoglobin is 12.4 PTT is elevated, patient remains on heparin drip for atrial fibrillation. Patient remains in atrial fibrillation with RVR, presently on amiodarone drip again as recommended by cardiology. Urine output remains marginal. Renal functioning is worsening BUN is 35 creatinine 2.44. Obviously the patient developed acute kidney injury and multiorgan system failure. Patient was reevaluated today on 02/21/2019. Remains intubated, mechanically ventilated. Remains on norepinephrine, vasopressin, Nimbex, propofol, continues to have extremely low blood pressure in spite of maximal pressors. Continues to have hypoxemia in spite of maximal ventilatory support. His pO2 today was 41 with a pCO2 of 55 and pH of 7.23. All family members are at bedside, and considering the overall picture, had discussion with the , and with the rest of the family members, all in agreement to proceed with comfort care measures. The plan is to discontinue his pressors, and that the patient passed in peace comfort and dignity. This was done, and shortly after the patient passed peacefully. Objective - Vital Signs Vital signs: Vital Signs Temp 99 F 02/21/19 08:00 Pulse 0 L 02/21/19 10:45 Resp 0 L 02/21/19 10:45 BP 96/59 02/20/19 19:00 Pulse Ox 36 L 02/21/19 09:30 Intake & Output 02/20/19 02/21/19 02/21/19 18:59 06:59 18:59 Intake Total 2755.500 2518.999 634 Output Total 168 0 0 Balance 2587.500 2518.999 634 Weight 94 kg Intake: IV 1872 1872 624 Normal Saline 600 600 200 Normal Saline Pressure 72 72 24 Bag Sodium Bicarb Amp 1200 1200 400 Intake, IV Titration 693.500 436.999 Amount Amiodarone 300 mg In 248.75 Dextrose 5% in Water 250 ml @ 0.5 MG/MIN 25 mls/hr IV .Q10H ESTUARDO Rx#: [id number] Cisatracurium 200 mg In 179.922 Sodium Chloride 0.9% 180 ml @ 1 MCG/KG/MIN 4.854 mls/hr IV .Q24H ESTUARDO Rx#: [id number] Heparin Sod,Pork in 0.45% 15.659 7.077 NaCl 25,000 unit In 0.45 % NaCl 1 250ml.bag @ 12 UNITS/KG/HR 9.708 mls/hr IV .Q24H ESTUARDO Rx#: [id number] Insulin Regular 100 unit 17.59 In Sodium Chloride 0.9% 100 ml @ Per Protocol IV .Q0M ESTUARDO Rx#:[id number] Norepinephrine 32 mg In 211.501 250.000 Sodium Chloride 0.9% 218 ml @ 0.05 MCG/KG/MIN 1. 701 mls/hr IV .Q24H ESTUARDO Rx#:[id number] Propofol 1,000 mg In 200 Empty Bag 1 bag @ Titrate IV .Q0M ESTUARDO Rx#: [id number] Tube Feeding 160 120 10 Other 30 90 Output: Urine 168 0 0 Other: Voiding Method Indwelling Catheter Indwelling Catheter Indwelling Catheter ABP, PAP, CO, CI - Last Documented Arterial Blood Pressure 26/21 - Exam GENERAL EXAM: Revealed 73-year-old white male sedated and paralyzed, on mechanical ventilation. HEAD: Normocephalic/atraumatic. EYES: Normal reaction of pupils, equal size. Conjunctiva pink, sclera white. NOSE: Clear with pink turbinates. THROAT: No erythema or exudates. NECK: No masses, no JVD, no thyroid enlargement, no adenopathy. CHEST: No chest wall deformity. Symmetrical expansion. LUNGS: Equal air entry crackles and rhonchi at the bases bilaterally. CVS:, Irregular irregular rhythm, tachycardic, normal S1 and S2, 2/6 systolic murmur throughout the precordium. ABDOMEN: Soft, nontender. No hepatosplenomegaly, normal bowel sounds, no guarding or rigidity. EXTREMITIES: No clubbing, 1+ bipedal edema, no cyanosis, 2+ pulses and upper and lower extremities. SKIN: No rashes CENTRAL NERVOUS SYSTEM: Could not be assessed, remains paralyzed. And sedated. Psychiatric: Could not be assessed. Remains paralyzed and sedated - Labs CBC & Chem 7: 02/21/19 04:25 02/21/19 04:25 Labs: Abnormal Lab Results - Last 24 Hours (Table) 02/20/19 02/20/19 02/20/19 Range/Units 06:33 16:07 16:40 WBC (3.8-10.6) k/uL RBC (4.30-5.90) m/uL Hgb (13.0-17.5) gm/dL Hct (39.0-53.0) % Plt Count (150-450) k/uL Neutrophils # (Manual) (1.3-7.7) k/uL Lymphocytes # (Manual) (1.0-4.8) k/uL Monocytes # (Manual) (0-1.0) k/uL APTT 77.9 H (22.0-30.0) sec ABG pH (7.35-7.45) ABG pCO2 (35-45) mmHg ABG pO2 (83-108) mmHg ABG O2 Saturation (94-97) % Sodium (137-145) mmol/L BUN (9-20) mg/dL Creatinine (0.66-1.25) mg/dL Glucose (74-99) mg/dL POC Glucose (mg/dL) 102 H (75-99) mg/dL Calcium (8.4-10.2) mg/dL Vitamin D 25-Hydroxy 28.4 L (30.0-100.0) ng/mL Vancomycin Trough ug/mL 02/20/19 02/20/19 02/20/19 Range/Units 18:58 21:15 21:17 WBC (3.8-10.6) k/uL RBC (4.30-5.90) m/uL Hgb (13.0-17.5) gm/dL Hct (39.0-53.0) % Plt Count (150-450) k/uL Neutrophils # (Manual) (1.3-7.7) k/uL Lymphocytes # (Manual) (1.0-4.8) k/uL Monocytes # (Manual) (0-1.0) k/uL APTT (22.0-30.0) sec ABG pH (7.35-7.45) ABG pCO2 (35-45) mmHg ABG pO2 (83-108) mmHg ABG O2 Saturation (94-97) % Sodium (137-145) mmol/L BUN (9-20) mg/dL Creatinine (0.66-1.25) mg/dL Glucose (74-99) mg/dL POC Glucose (mg/dL) 112 H 127 H (75-99) mg/dL Calcium (8.4-10.2) mg/dL Vitamin D 25-Hydroxy (30.0-100.0) ng/mL Vancomycin Trough 35.0 H* ug/mL 02/21/19 02/21/19 02/21/19 Range/Units 04:25 04:25 04:29 WBC 30.2 H (3.8-10.6) k/uL RBC 3.61 L (4.30-5.90) m/uL Hgb 11.5 L (13.0-17.5) gm/dL Hct 34.1 L (39.0-53.0) % Plt Count 130 L (150-450) k/uL Neutrophils # (Manual) 28.00 H (1.3-7.7) k/uL Lymphocytes # (Manual) 0.30 L (1.0-4.8) k/uL Monocytes # (Manual) 2.11 H (0-1.0) k/uL APTT (22.0-30.0) sec ABG pH (7.35-7.45) ABG pCO2 (35-45) mmHg ABG pO2 (83-108) mmHg ABG O2 Saturation (94-97) % Sodium 134 L (137-145) mmol/L BUN 49 H (9-20) mg/dL Creatinine 3.57 H (0.66-1.25) mg/dL Glucose 156 H (74-99) mg/dL POC Glucose (mg/dL) 167 H (75-99) mg/dL Calcium 5.5 L* (8.4-10.2) mg/dL Vitamin D 25-Hydroxy (30.0-100.0) ng/mL Vancomycin Trough ug/mL 02/21/19 02/21/19 02/21/19 Range/Units 05:40 05:44 07:13 WBC (3.8-10.6) k/uL RBC (4.30-5.90) m/uL Hgb (13.0-17.5) gm/dL Hct (39.0-53.0) % Plt Count (150-450) k/uL Neutrophils # (Manual) (1.3-7.7) k/uL Lymphocytes # (Manual) (1.0-4.8) k/uL Monocytes # (Manual) (0-1.0) k/uL APTT 61.6 H (22.0-30.0) sec ABG pH 7.23 L (7.35-7.45) ABG pCO2 55 H (35-45) mmHg ABG pO2 41 L* (83-108) mmHg ABG O2 Saturation 68.3 L (94-97) % Sodium (137-145) mmol/L BUN (9-20) mg/dL Creatinine (0.66-1.25) mg/dL Glucose (74-99) mg/dL POC Glucose (mg/dL) 161 H (75-99) mg/dL Calcium (8.4-10.2) mg/dL Vitamin D 25-Hydroxy (30.0-100.0) ng/mL Vancomycin Trough ug/mL Microbiology - Last 24 Hours (Table) 02/19/19 10:10 Gram Stain - Final Sputum Sputum Culture - Final 02/18/19 00:30 Blood Culture - Preliminary Blood No Growth after 72 hours Assessment and Plan Assessment: Impression: 1 septic shock, most likely secondary to pneumonia. 2 profound hypotension secondary to sepsis, septic shock, and primary adrenal insufficiency. 3 acute hypoxic respiratory failure secondary to pneumonia and sepsis. 4 acute kidney injury secondary to hypotension 5 history of herpetic neuralgia 6 history of paroxysmal atrial fibrillation, presently in sinus rhythm. 7 history of coronary artery disease and previous stenting 8 history of lymphoma status post stem cell transplant 9 history of adrenal hemorrhage or adrenal mass 10 history of histoplasmosis and previous lung resection 11 history of MRSA pneumonia 12 suspect some component of interstitial lung disease/pulmonary fibrosis 13 history of depression. 14 ARDS secondary to sepsis with multisystem organ failure. Recommendation: Discussed his condition with family members at bedside including his and other family members. All in agreement to proceed with comfort care measures. His pressors were discontinued, and the patient passed peacefully shortly after. Time with Patient: Less than 30
--- NOTE | 2019-02-21 12:57 | P.DS ---
Providers Date of admission: 02/18/19 00:41 Expected date of discharge: 02/21/19 Attending physician: Zeferino Waller MD Consults: 02/18/19 03:36 Consult Physician Stat Consulting Provider: Kezia Conde Consult Reason/Comments: ICU management Do you want consulting provider notified?: Already Contacted 02/18/19 14:47 Consult Physician Stat Consulting Provider: Abdi Elena Consult Reason/Comments: Atrial fib & elevated trop Do you want consulting provider notified?: Yes 02/19/19 19:49 Consult Physician Routine Consulting Provider: José Mosqueda Consult Reason/Comments: possible ischemic bowel Do you want consulting provider notified?: Yes, Notify in am Primary care physician: Angela Galindo Hospital Course: Final diagnosis -Acute hypoxic and hypercapnic respiratory failure secondary to septic shock patient appears to have some ARDS as well. -Septic shock secondary to extensive bilateral pneumonia -Acute hypoxic respiratory failure secondary to sepsis and extensive bilateral pneumonia -Acute renal failure probably acute tubular necrosis and hypotension from sepsis -Mildly elevated troponin secondary to A. fib and the sepsis -Atrial fibrillation with rapid ventricular rate -Recent adrenal hemorrhage and retinal insufficiency -History of lymphoma which is in remission at this time -Depression CODE STATUS: DO NOT RESUSCITATE Preliminary cause of : septic shock secondary to extensive bilateral pneumonia Discharge disposition Patient has after continuing to deteriorate and family's wishes were to start the patient on comfort care only and terminally weaned. Refer to nursing notes for time of . History of present illness Please refer to previous dictations for HPI Patient Condition at Discharge: Poor Plan - Discharge Summary Discharge Rx Participant: No New Discharge Prescriptions: Discontinued Furosemide [Lasix] 20 mg PO DAILY Aspirin [Adult Low Dose Aspirin EC] 81 mg PO DAILY Multivit-Min/FA/Lycopen/Lutein [Centrum Silver Men Tablet] 1 tab PO DAILY metFORMIN HCL [Glucophage] 500 mg PO AC-BID Metoprolol Tartrate [Lopressor] 12.5 mg PO BID Atorvastatin [Lipitor] 40 mg PO DAILY Insulin Glargine,Hum.rec.anlog [Toubethany Solostar] 24 units SQ HS Potassium Chloride ER [K-Dur 10] 10 meq PO DAILY Ipratropium-Albuterol Nebulize [Duoneb 0.5 mg-3 mg/3 ml Soln] 3 ml INHALATION RT-Q6H PRN PRN Reason: Shortness Of Breath Pregabalin [Lyrica] 75 mg PO TID Montelukast Sodium [Singulair] 10 mg PO HS Acetaminophen-Codeine 300-30mg [Tylenol w/codeine #3] 1 - 2 tab PO Q4HR PRN PRN Reason: Pain Hydrocortisone [Cortef] 20 mg PO BID #30 tab Apixaban [Eliquis] 5 mg PO BID #60 tab Fludrocortisone [Florinef] 0.1 mg PO DAILY #30 tab Famotidine [Pepcid] 20 mg PO BID #20 tab Acyclovir [Zovirax] 400 mg PO BID #14 cap Follow up Appointment(s)/Referral(s): Angela Galindo MD [Primary Care Provider] - 1-2 days Discharge Disposition: - Preliminary Cause of Preliminary Cause of : Septic shock secondary to extensive bilateral pneumonia
[2019-02-21] MEDS ORDERED: CEFEPIME 2 GM in SODIUM CHLORIDE 0.9% 100 ML IVPB SCH (13:00)
[2019-02-25 08:36] LABS: ABG PH 7.18 (7.35-7.45)
== END 2019-02-21 12:12 | disposition expired | DRG 871 ==
LOC: EC 22:12 → 5NMEDONC 02-18 00:41 → 2SICU 02-18 02:54
PROVIDERS: ADMIT Emergency Medicine; ATTEND Internal Medicine
PROC: 5A1945Z Respiratory Ventilation, 24-96 Consecutive Hours (ICD-10-PCS; principal; 2019-02-18)
PROC: 0BH17EZ Insertion of Endotracheal Airway into Trachea, Via Natural or Artificial Opening (ICD-10-PCS; 2019-02-18)
PROC: 02HV33Z Insertion of Infusion Device into Superior Vena Cava, Percutaneous Approach (ICD-10-PCS; 2019-02-18)
PROC: 5A09357 Assistance with Respiratory Ventilation, Less than 24 Consecutive Hours, Continuous Positive Airway Pressure (ICD-10-PCS; 2019-02-18)
PROC: 03HY32Z Insertion of Monitoring Device into Upper Artery, Percutaneous Approach (ICD-10-PCS; 2019-02-18)
PROC: 4A133B1 Monitoring of Arterial Pressure, Peripheral, Percutaneous Approach (ICD-10-PCS; 2019-02-18)
PROC: 4A133J1 Monitoring of Arterial Pulse, Peripheral, Percutaneous Approach (ICD-10-PCS; 2019-02-18)
PROC: 0D9670Z Drainage of Stomach with Drainage Device, Via Natural or Artificial Opening (ICD-10-PCS; 2019-02-18)
PROC: 3E0G76Z Introduction of Nutritional Substance into Upper GI, Via Natural or Artificial Opening (ICD-10-PCS; 2019-02-19)
DX: A41.51 Sepsis due to Escherichia coli [E. coli] (principal); R65.21 Severe sepsis with septic shock; N17.0 Acute kidney failure with tubular necrosis; J96.01 Acute respiratory failure with hypoxia; J96.02 Acute respiratory failure with hypercapnia; J15.212 Pneumonia due to Methicillin resistant Staphylococcus aureus; Z94.84 Stem cells transplant status; E87.2 Acidosis; E27.1 Primary adrenocortical insufficiency; B02.29 Other postherpetic nervous system involvement; K55.9 Vascular disorder of intestine, unspecified; Z66 Do not resuscitate; Z51.5 Encounter for palliative care; I48.0 Paroxysmal atrial fibrillation; Y95 Nosocomial condition; E87.6 Hypokalemia; E11.9 Type 2 diabetes mellitus without complications; I25.10 Atherosclerotic heart disease of native coronary artery without angina pectoris; I10 Essential (primary) hypertension; I34.0 Nonrheumatic mitral (valve) insufficiency; E78.5 Hyperlipidemia, unspecified; R79.89 Other specified abnormal findings of blood chemistry; Z79.01 Long term (current) use of anticoagulants; Z79.82 Long term (current) use of aspirin; Z79.4 Long term (current) use of insulin; Z79.52 Long term (current) use of systemic steroids; Z79.899 Other long term (current) drug therapy; Z87.01 Personal history of pneumonia (recurrent); Z86.14 Personal history of Methicillin resistant Staphylococcus aureus infection; Z90.2 Acquired absence of lung [part of]; Z86.19 Personal history of other infectious and parasitic diseases; Z85.72 Personal history of non-Hodgkin lymphomas; Z92.21 Personal history of antineoplastic chemotherapy; Z92.3 Personal history of irradiation; Z90.49 Acquired absence of other specified parts of digestive tract; Z95.5 Presence of coronary angioplasty implant and graft; Z98.890 Other specified postprocedural states; Z85.828 Personal history of other malignant neoplasm of skin; Z87.19 Personal history of other diseases of the digestive system; Z86.59 Personal history of other mental and behavioral disorders; Z82.49 Family history of ischemic heart disease and other diseases of the circulatory system
CPT/HCPCS: 36415; 36556; 36600; 71045; 71046; 74018; 74177; 80048; 80053; 80202; 81003; 82306; 82330; 82533; 82805; 83605; 83735; 83880; 84484; 85025; 85610; 85730; 87040; 87070; 87205; 87502; 93005; 93306; 94002; 94003; 94640; 94660; 96361; 96365; 96367; 96375; 99291